=== PATIENT | female | born 1995 | race Caucasian/White ===

== ENCOUNTER 2023-08-22 20:04 | Outpatient (REF) | payer OTHER, SELFPAY ==
[2023-08-27 14:08] LABS: Age Gdln ACOG Testing Note (.); IGP, rfx Aptima HPV ASCU Note (.)
== END 2023-08-22 20:05 | disposition home or self-care (01) ==
LOC: LAB 20:04
PROVIDERS: Visit Provider Obstetrics & Gynecology
DX: Z01.419 Encounter for gynecological examination (general) (routine) without abnormal findings (principal)
CPT/HCPCS: G0145

== ENCOUNTER 2023-08-30 12:39 | Outpatient (OUT) | payer OTHER, SELFPAY ==
--- NOTE | 2023-08-30 12:47 | MM_ITS ---
Patient Name: ZAKIA SEARS MR#: [id number] : 1995 Exam Date: 08/30/2023 Ordering Doctor: DR Steven Meade . RADIOLOGY REPORT PROCEDURE: MM TOMOSYNTHESIS DIAGNOSTIC BI, 08/30/2023, 13:26 US BREAST LT LIMITED, 08/30/2023, 12:52 COMPARISON: None. INDICATIONS: Mass Of Breast N63.0 Calculator Name NCI Breast Cancer Risk Assessment Tool 5 Year Breast Cancer Risk Not Reported. Lifetime Breast Cancer Risk Not Reported. Personal Breast Cancer No Personal Ovarian Cancer No Treatments None Family Cancers None LOCATION: [facility] BREAST COMPOSITION: Heterogeneously dense,which may obscure small masses. FINDINGS: DIAGNOSTIC CATEGORY 1--NEGATIVE. RIGHT BREAST: No significant suspicious finding. LEFT BREAST: No significant or suspicious finding via mammography and breast ultrasound. RECOMMENDATIONS: CLINICAL EVALUATION. PLEASE NOTE: A NORMAL MAMMOGRAM DOES NOT EXCLUDE THE POSSIBILITY OF BREAST CANCER. A CLINICALLY SUSPICIOUS PALPABLE LUMP SHOULD BE BIOPSIED. Dictated by: Rafiq Brennan M.D. on 08/30/2023 at 13:57 Approved by: Rafiq Brennan M.D. on 08/30/2023 at 14:01
--- OUTSIDE RECORDS SUMMARY | 2023-08-30 13:00 | XMS_ITS | CCD ---
Author Name Unknown Address [facility] [address] [place] [id number] Organization [facility] Care Team Providers Care Fixing Carpenter Name Role Phone Shantelle Dean Primary Care Provider [phone] JIMMY MEEHAN Referring Unavailable SHANTELLE DEAN Primary Care Unavailable SHANTELLE DEAN Referring Unavailable SHANTELLE DEAN Primary Care Unavailable MISHaroon, DR BELLAMY Primary Care Unavailable DR JASIEL RAMOS Attending Unavailable DR JASIEL RAMOS Consulting Unavailable DR JASIEL RAMOS Admitting Unavailable JASIEL RAMOS Attending Unavailable JASIEL RAMOS Attending Unavailable Medications Current Medications Medication Drug Class(es) Dates Sig (Normalized) Sig (Original) etonogestrel 68 mg drug implant (2 sources) Progestin etonogestrel (NEXPLANON) 68 MG implant 68 mg by Subdermal route once 0 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] Onset: 04-28-2019 04-28-2019 Chronic Immunizations and screening for infectious disease (1 source) Encounter for screening for human papillomavirus (HPV); Translations: [ENC SCREENING HUMAN PAPILLOMAVIRUS] Onset: 08-23-2022 Episodic Other screening for suspected conditions (not mental disorders or infectious disease) (4 sources) Encounter for screening for malignant neoplasm of cervix; Translations: [ENC SCREENING MALIG NEOPLASM CERV] Onset: 08-21-2022 Episodic Past or Other Problems Problem Classification Problem Date Documented Date Episodic/Chronic Contraceptive and procreative management (1 source) Patient encounter status; Translations: [Encounter for other contraceptive management] Onset: 07-11-2017 Resolved: 11-25-2019 11-25-2019 Episodic Other female genital disorders (2 sources) Pain in female genitalia on intercourse; Translations: [Unspecified dyspareunia] Onset: 05-24-2018 Resolved: 03-09-2020 03-09-2020 Chronic Unclassified (1 source) Patient encounter status; Translations: [Encounter for other contraceptive management] Onset: 07-11-2017 Resolved: 11-25-2019 11-25-2019 Results Test Name Value Interpretation Reference Range Facil ity PAP ACOG PANEL 2: 21 to 29on 08-25-2022 . . Normal [facility] Comment on above: Performed By: #### 4 [id number] #### [facility] [address] [address] [address] Matias Shukla Age Gdln ACOG Testing - [facility] Comment on above: Performed By: #### 4 [id number] #### [facility] [address] [address] [address] Matias Shukla DIAGNOSIS: Comment [facility] Comment on above: Result Comment: NEGA TIVE FOR INTRAEPITHELIAL LESION OR MALIGNANCY. Performed By: #### 4 [id number] #### [facility] [address] [address] [address] Matias Shukla Methodology: Comment [facility] Comment on above: Result Comment: This liquid based ThinPrep(R) pap test was screened with the use of an image guided system. Performed By: #### 4 [id number] #### [facility] [address] [address] [address] Matias Shukla Note: Comment [facility] Comment on above: Result Comment: The Pap smear is a screening test designed to aid in the detection of premalignant and malignant conditions of the uterine cervix. It is not a diagnostic procedure and should not be used as the sole means of detecting cervical cancer. Both false-positive and false-negative reports do occur. . Performed By: #### 4 [id number] #### [facility] [address] [address] [address] Matias Shukla Performed by: Comment [facility] Comment on above: Result Comment: Monika Prieto, Nuclear Equipment Sales Engineer (ASCP) Performed By: #### 4 [id number] #### [facility] [address] [address] [address] Matias Shukla Reflex Criteria: Comment Normal [facility] Comment on above: Result Comment: The HPV DNA reflex criteria were not met with this specimen result therefore, no HPV testing was performed. . Performed By: #### 4 [id number] #### [facility] [address] [address] [address] Matias Shukla Specimen adequacy: Comment Normal [facility] Comment on above: Result Comment: Sati sfactory for evaluation. Endocervical and/or squamous metaplastic cells (endocervical component) are present. Performed By: #### 4 [id number] #### [facility] [address] [address] [address] Matias Shukla MUMPS IGG BLDon 02-07-2022 MUMPS IGG 1.14 Normal [facility] Comment on above: Result Comment: RAN IN TRIPLICATE NORMAL RANGES: < OR = 0.9O NEGATIVE ; NO DETECTABLE IgG ANTIBODY TO MUMPS 0.91 - 1.09 EQUIVOCAL; REPEAT TESTING SUGGESTED > OR = 1.10 POSITIVE ; INDICATES PRESENCE OF DETECTABLE IgG ANTIBODY TO MUMPS Performed By: #### 1 0055, [id number], [id number], [id number] #### [facility] [address] [place] [address], [facility] RUBELLAon 02-07-2022 RUBELLA 1.73 Normal [facility] Comment on above: Result Comment: NORM AL RANGES: < OR = 0.9O NEGATIVE ; NO DETECTABLE IgG ANTIBODY TO RUBELLA 0.91 - 1.09 EQUIVOCAL; REPEAT TESTING SUGGESTED > OR = 1.10 POSITIVE ; INDICATES PRESENCE OF DETECTABLE IgG ANTIBODY TO RUBELLA VIRUS Performed By: #### 1 0055, [id number], 07330, [id number] #### [facility] [address] [place] [address], [facility] RUBEOLA MEASLES IGGon 2021 RUBEO IGG 4.62 Normal [facility] Comment on above: Result Comment: NORM AL RANGES: < OR = 0.9O NEGATIVE ; NO DETECTABLE IgG ANTIBODY TO RUBEOLA 0.91 - 1.09 EQUIVOCAL; REPEAT TESTING SUGGESTED > OR = 1.10 POSITIVE ; INDICATES PRESENCE OF DETECTABLE IgG ANTIBODY TO RUBEOLA Performed By: #### 1 0055, 86104, 65631, 55113 #### [facility] [address] [place] [address], [facility] TB QUANTIFERON PLUSon 2021 MITOGEN MINUS NIL 8.15 IU/mL Normal [facility] Comment on above: Performed By: #### 3 1592 #### [facility] [address] [place] [address], [facility] NIL 0.03 IU/mL Normal [facility] Comment on above: Performed By: #### 3 1592 #### [facility] [address] [place] [address], [facility] TB QUANTIFERON Negative Normal NEGATIVE [facility] Comment on above: Result Comment: Eric tiferon TB Gold Interpretation (IU/mL): NEGATIVE: M. tuberculosis infection not likely. Nil: <=8.0 TB1 Antigen minus Nil (YT9JB-YOL): <0.35 OR >=0.35; and <25% of Nil value. TB2 Antigen minus Nil (HL7MH-RLC): <0.35 OR >=0.35; and <25% of Nil value. Mitogen minus Nil (BINU-NIL): >=0.50 NOTE: Diagnosing or excluding tuberculosis disease, and assessing the probability of LTBI, requires a combination of epidemiological, historical, medical, and diagnostic findings that should be taken into account when interpreting QuantiFERON (TM)-TB Gold results. See general guidance on the diagnosis and treatment of TB disease and LTBI (https://www.cdc.gov/tb/publications/guidlines/default.htm Performed By: #### 3 1592 #### [facility] [address] [place] [address], [facility] TB1 AG 0.03 IU/mL Normal [facility] Comment on above: Performed By: #### 3 1592 #### [facility] [address] [place] [address], [facility] TB1 AG MINUS NIL 0.00 IU/mL Normal [facility] Comment on above: Performed By: #### 3 1592 #### [facility] [address] TB2 AG 0.04 IU/mL Normal [facility] Comment on above: Performed By: #### 3 1592 #### [facility] [address] TB2 AG MINUS NIL 0.01 IU/mL Normal [facility] Comment on above: Performed By: #### 3 1592 #### [facility] [address] VARICELLA ZOSTER IGGon 02-07 VARICELLA IGG 2.60 Normal [facility] Comment on above: Result Comment: NORM AL RANGES: < OR = 0.9O NEGATIVE ; NO DETECTABLE IgG ANTIBODY TO VARICELLA-ZOSTER VIRUS 0.91 - 1.09 EQUIVOCAL; REPEAT TESTING SUGGESTED > OR = 1.10 POSITIVE ; INDICATES PRESENCE OF DETECTABLE IgG ANTIBODY TO VARICELLA-ZOSTER VIRUS Performed By: #### 1 0055, 15697, 56425, 30349 #### [facility] [address] HPV DNA High Riskon 08-19-19 22 HPV Interp Normal [facility] Comment on above: Result Comment: This test amplifies and detects DNA of 14 high-risk HPV types associated with cervical cancer and its precursor lesions (HPV types 16,18, 31, 33, 35, 39, 45, 51, 52, 56, 58, 59, 66, and 68). Sensitivity may be affected by specimen collection methods, stage of infection, and the presence of interfering substances. Results should be interpreted in conjunction with other available laboratory and clinical data. A negative high-risk HPV result does not exclude the possibility of future cytologic HSIL or underlying CIN2-3 or cancer. This test is intended for medical purposes only and is not valid for the evaluation of suspected sexual abuse or for other forensic purposes. Performed By: #### [facility] #### [address] [address] Pharmacy Student: Rickey Watson MD HPV Type 16 Not detected Normal [facility] Comment on above: Performed By: #### H [facility] #### [address] [address] Pharmacy Student: Rickey Watson MD HPV Type 18 Not detected Normal [facility] Comment on above: Performed By: #### H [facility] #### [address] [address] Pharmacy Student: Rickey Watson MD Other High Risk HPV Not detected [facility] Comment on above: Performed By: #### H [facility] #### [address] [address] Pharmacy Student: Rickey Watson MD HPV DNA High Riskon 08-18-19 Source .GENITAL - NOT SPECIFIED Normal [facility] Comment on above: Performed By: #### H [facility] #### [address] [address] Pharmacy Student: Rickey Watson MD HPV Sample .THIN PREP Normal [facility] Comment on above: Performed By: #### H [facility] #### [address] [address] Pharmacy Student: Rickey Watson MD Chlamydia/GC DNA, TPon 08-10 Chlamydia Probe, TP Negative Normal NEG [facility] Comment on above: Result Comment: CHLA MYDIA TRACHOMATIS DNA not detected by nucleic acid amplification. This test is intended for medical purposes only and is not valid for the evaluation of suspected sexual abuse or for other forensic purposes. In certain contexts, culture may be required to meet applicable laws and regulations for diagnosis of C. trachomatis and N. gonorrhoeae infections. Per 2014 CDC recommendations, this test does not include confirmation of positive results by an alternative nucleic acid target. Performed By: #### C YTC #### [address] [address] Pharmacy Student: Rickey Watson MD Gonorrhea Probe, TP Negative Normal NEG [facility] Comment on above: Result Comment: NEIS SERIA GONORRHOEAE DNA not detected by nucleic acid amplification. This test is intended for medical purposes only and is not valid for the evaluation of suspected sexual abuse or for other forensic purposes. In certain contexts, culture may be required to meet applicable laws and regulations for diagnosis of C. trachomatis and N. gonorrhoeae infections. Per 2014 CDC recommendations, this test does not include confirmation of positive results by an alternative nucleic acid target. Performed By: #### C YTCGP #### [address] [address] Pharmacy Student: Rickey Watson MD Cytologyon 08-08-2021 Cytology (NOTE) INTERPRETATION Cervical material, (ThinPrep vial, Imaging-assisted review): Specimen Adequacy: Satisfactory for evaluation. - Endocervical/transform ation zone component present. - Scant cellularity. Descriptive Diagnosis: Atypical squamous cells of undetermined significance (ASC-US). Nuclear Equipment Sales Engineer: AMANDA Michaels M.D. Electronically Signed Out rdd/08/18/2021 Amendments Originally Reported As: Procedure/Addendum Source: Clinical History LMP: Patient Name: [facility] Rec: Path Number: Fax: Normal [facility] Comment on above: Performed By: #### P PPVP #### [address] [address] Pharmacy Student: Rickey Watson MD QuantiFERON TBon 12-24-2020 Quanti Binu minus NIL 8.10 IU/mL [facility] Comment on above: Performed By: #### R UBI, LUIZ, MARITZA, VZI #### [address] [address] Pharmacy Student: Rickey Watson MD #### AQF #### Pending sale to [facility] [address] [place] [address] Pharmacy Student: Mark Grossman MD Quanti TB Gold Plus Negative Normal Negative [facility] Comment on above: Result Comment: (NOT E) Interpretive Data: Quantiferon TB Gold Plus Interferon gamma release is measured for specimens from each of the four collection tubes. A qualitative result (Negative, Positive, or Indeterminate) is based on interpretation of the four values, NIL, MITOGEN minus NIL (MITOGEN-NIL), TB1 minus NIL (TB1-NIL), and TB2 minus NIL (TB2-NIL). The NIL value represents nonspecific reactivity produced by the patient specimen. The MITOGEN-NIL value serves as the positive control for the patient specimen, demonstrating successful lymphocyte activity. The TB1-NIL tube specifically detects CD4+ lymphocyte reactivity, specifically stimulated by the TB1 antigens. The TB2-NIL tube detects both CD4+ and CD8+ lymphocyte reactivity, stimulated by TB2 antigens. An overall Negative result does not completely rule out TB infection. A false-positive result in the absence of other clinical evidence of TB infection is not uncommon. Refer to: Updated Guidelines for Using Interferon Gamma Release Assays to Detect Mycobacterium tuberculosis Infection --- [place], 2010 (http://www.cdc.gov/mmwr/preview/mmwrhtml/el2508v7.htm), for more information concerning test performance in low-prevalence populations and use in occupational screening. Performed By: #### R LUIZ MCKEON MUI, VZI #### [facility] [address] [place], [place] [id number] Pharmacy Student: Rickey Watson MD #### AQF #### [facility] [address] [place], [place] [id number] Pharmacy Student: Mark Grossman MD Quanti TB1 minus NIL 0.00 IU/mL Normal 0.00-0.34 [facility] Comment on above: Performed By: #### R LUIZ MCKEON MUI, VZI #### [facility] [address] [place], [place] [id number] Pharmacy Student: Rickey Watson MD #### AQF #### [facility] [address] [place], [place] [id number] Pharmacy Student: Mark Grossman MD Quanti TB2 minus NIL 0.01 IU/mL Normal 0.00-0.34 [facility] Comment on above: Performed By: #### R UBI, LUIZ, MARITZA, VZI #### [address] [address] Pharmacy Student: Rickey Watson MD #### AQF #### [address] [address] Pharmacy Student: Mark Grossman MD QuantiFERON NIL 0.01 IU/mL Normal [facility] Comment on above: Result Comment: (NOT E) Performed By: [address] [id number] Hard Candy Spinner: Carolyn Wei MD Performed By: #### R UBI, LUIZ, MARITZA, VZI #### [address] [id number] Pharmacy Student: Rickey Watson MD #### AQF #### [address] [id number] Pharmacy Student: Mark Grossman MD Measles (Rubeola) Imon 12-229 Measles (Rubeola) Im 3.68 Normal >1.09 [facility] Comment on above: Result Comment: Interpretation: IMMUNE Reference Range: <0.91 Not Immune 0.91-1.09 Equivocal >1.09 Immune Performed By: #### R UBI, LUIZ, MARITZA, VZI #### [address] [address] Pharmacy Student: Rickey Watson MD #### AQF #### [address] [address] Pharmacy Student: Mark Grossman MD Mumps,Immun,Abon 12-22-2020 Mumps,Immun,Ab 1.16 Normal >1.09 [facility] Comment on above: Result Comment: Interpretation: IMMUNE Reference Range: <0.91 Not Immune 0.91-1.09 Equivocal >1.09 Immune Performed By: #### R UBI, LUIZ, MARITZA, VZI #### [address] [address] Pharmacy Student: Rickey Watson MD #### AQF #### [address] [address] Pharmacy Student: Mark Grossman MD VZ Immunityon 12-22-2020 VZ Immunity 2.24 Normal >1.09 [facility] Comment on above: Result Comment: Interpretation: IMMUNE Reference Range: <0.91 Not Immune 0.91-1.09 Equivocal >1.09 Immune Performed By: #### R UBI, LUIZ, MARITZA, VZI #### [address] [address] Pharmacy Student: Rickey Watson MD #### AQF #### [address] [address] Pharmacy Student: Mark Grossman MD Rubella Ab, IgGon 12-21-2020 Rubella Ab, IgG 16.2 IU/mL Normal [facility] Comment on above: Result Comment: REFERENCE RANGE: <5.0 NON-REACTIVE (non-immune) 5.0 TO 9.9 EQUIVOCAL >=10.0 REACTIVE (immune) Performed By: #### R UBI, LUIZ, MARITZA, VZI #### [address] [address] Pharmacy Student: Rickey Watson MD #### AQF #### [address] [address] Pharmacy Student: Mark Grossman MD Rubella antibody, IgGOrdered By: Jimmy Meehan on 12-21-2020 Rubella virus IgG Ql (S) 16.2 IU/mL [facility] Work Phone: Comment on above: REFERENCE RANGE: <5.0 NON-REACTIVE (non-immune) 5.0 TO 9.9 EQUIVOCAL >=10.0 REACTIVE (immune) [facility] Work Phone: Lab - Toxicology Resultson 0 03-11-2020 Lab - Toxicology Results [id number]#[id number] [id number] Normal [facility] QuantiFERON TB Gold (In Tube ) LCon 03-08-2020 QuantiFERON Criteria LC Comment [facility] Comment on above: Result Comment: The QuantiFERON-TB Gold Plus result is determined by subtracting the Nil value from either TB antigen (Ag) tube. The mitogen tube serves as a control for the test. Performed By: #### 4 [id number], [id number] #### [facility] (DEFAULT) [address] [place] [address] QuantiFERON M. tuberculosis1 Ag Value LC 0.09 IU/mL [facility] Comment on above: Performed By: #### 4 [id number], [id number] #### [facility] (DEFAULT) [address] [place] [address] QuantiFERON M. tuberculosis2 Ag Value LC 0.08 IU/mL [facility] Comment on above: Performed By: #### 4 [id number], [id number] #### [facility] (DEFAULT) [address] [place] [address] QuantiFERON Mitogen Value LC >10.00 [facility] Comment on above: Result Comment: Perf ormed At: [facility] [id number] Kat Arevalo PhD Ph:[phone] Performed By: #### 4 [id number], [id number] #### [facility] (DEFAULT) [address] [place] [address] QuantiFERON Nil Value LC 0.01 IU/mL [facility] Comment on above: Performed By: #### 4 [id number], [id number] #### [facility] (DEFAULT) [address] [place] [address] QuantiFERON-TB Gold Plus LCo n 03-08-2020 QuantiFERON-TB Gold Plus LC Negative Negative [facility] Comment on above: Result Comment: Perf ormed At: [address] [id number] Kat Arevalo PhD Ph:[phone] Performed By: #### 4 [id number], [id number] #### [facility] (DEFAULT) [address] [place] [address] QuantiFERON Incubation LC Incubation performed. [facility] Comment on above: Result Comment: Perf ormed At: [address] [id number] Kat Arevalo PhD Ph:[phone] Performed By: #### 4 [id number], [id number] #### [facility] (DEFAULT) [address] [place] [address] HBSab Qnt LCon 03-05-2020 Hep B Surf Ab Quant LC 145.6 mIU/mL Immunity>9.9 [facility] Comment on above: Result Comment: Stat us of Immunity Anti-HBs Level Inconsistent with Immunity 0.0 - 9.9 Consistent with Immunity >9.9 Performed At: [address] [id number] Kat Arevalo PhD Ph:[phone] Performed By: #### 1 [id number], [id number] #### [facility] (DEFAULT) [address] [place] [address] Measles/Mumps/Rubella Immuni ty LCon 03-05-2020 Mumps Abs, IgG LC 69.5 AU/mL Immune >10.9 [facility] Comment on above: Result Comment: Nega tive <9.0 Equivocal 9.0 - 10.9 Positive >10.9 A positive result generally indicates past exposure to Mumps virus or previous vaccination. Performed At: [address] [id number] Kat Arevalo PhD Ph:[phone] Performed By: #### 1 [id number], [id number] #### [facility] (DEFAULT) [address] [place] [address] Rubella Antibodies, IgG LC 1.75 index Immune >0.99 [facility] Comment on above: Result Comment: Non- immune <0.90 Equivocal 0.90 - 0.99 Immune >0.99 Performed By: #### 1 [id number], [id number] #### [facility] (DEFAULT) [address] [place] [address] Rubeola Ab, IgG, EIA LC >300.0 Immune >16.4 [facility] Comment on above: Result Comment: Nega tive <13.5 Equivocal 13.5 - 16.4 Positive >16.4 Presence of antibodies to Rubeola is presumptive evidence of immunity except when acute infection is suspected. Performed By: #### 1 [id number], [id number] #### [facility] (DEFAULT) [address] [place] [address] Nicotine Metabolite, Urine L Con 03-05-2020 Cotinine LC Negative Niqpvg=818 [facility] Comment on above: Result Comment: Perf ormed At: [facility] [address] [facility], [place] [id number] Jose Schwartz PhD Ph:[phone] Performed By: #### 1 [id number] #### [facility] (DEFAULT) [address] [place] [address] Encounters Encounter Date Encounter Type Care Provider Facility Start: 08-22-2023 End: 08-22-2023 ambulatory JASIEL RICHARD Not Available Start: 07-04-2023 End: 07-04-2023 ambulatory JASIEL RICHARD Not Available Start: 08-21-2022 End: 08-21-[address] DOCTOR MERCADO Facility: Start: 08-08-2021 End: 08-09-2021 ambulatory SHANTELLE DEAN [facility] Start: 12-21-2020 End: 12-22-2020 ambulatory JIMMY MEEHAN [facility] Start: 12-21-2020 End: 12-21-2020 Subsequent hospital visit by physician Shantelle Dean PA-C Work Phone: [facility] Start: 03-18-2020 End: 03-18-2020 Subsequent hospital visit by physician Shantelle [place] [facility] Procedures Date Procedure Procedure Detail Performing Clinician Start: 12-21-2020 Antibody rubella Ebony Meehan MD Work Phone: Plan of Treatment Date Care Activity Detail Author Start: 02-26-2027 DTaP/Tdap/Td vaccine (7 - Td) DTaP/Tdap/Td vaccine (7 - Td) [place], [place] Start: 03-18-2023 Screening for malign ant neoplasm of cervix Cervical cancer screen [employer] Phone: Start: 06-12-2021 Screening for malign ant neoplasm of cervix Cervical cancer screen [place], [place] Start: 03-30-2021 Influenza vaccination Flu vacc ine (Season Ended) [facility] Phone: Start: 03-30-2020 Influenza vaccination Flu vaccine (# 1) [place], [place] Start: 06-12-2019 Screening for Chlamy flaco trachomatis Chlamydia screen [place], [place] Start: 09-13-2011 Hepatitis A vaccine (2 of 2 - 2-dose series) Hepatitis A vaccine (2 of 2 - 2-dose series) [place], [place] Start: 2007 COVID-19 Vaccine (1) COVID-19 Vaccin e (1) [facility] Phone: Start: 1995 Hepatitis C screening Hepatitis C sc reen [employer] Phone: End: 12-21-2020 Mumps Antibody, IgG Mumps Antibody, IgG Lab Routine Once for 1 Occurrences starting 12/21/2020 until 12/21/2020 [employer] Phone: Comment on above: Once for 1 Occurrenc es starting 12/21/2020 until 12/21/2020 Mumps Antibody, IgG Mumps Antibo dy, IgG Lab Routine 12/21/2020 4:27 PM EDT [employer] Phone: End: 12-21-2020 Quantiferon TB Gold Quantiferon TB Gold Microbiology Routine Once for 1 Occurrences starting 12/21/2020 until 12/21/2020 [employer] Phone: Comment on above: Once for 1 Occurrenc es starting 12/21/2020 until 12/21/2020 Quantiferon TB Gold Quantiferon TB Gold Microbiology Routine 12/21/2020 4:27 PM EDT [employer] Phone: End: 12-21-2020 Rubeola Antibody, IgG Rubeola Antibody, IgG Lab Routine Once for 1 Occurrences starting 12/21/2020 until 12/21/2020 [employer] Phone: Comment on above: Once for 1 Occurrenc es starting 12/21/2020 until 12/21/2020 Rubeola Antibody, IgG Rubeola An tibody, IgG Lab Routine 12/21/2020 4:27 PM EDT [employer] Phone: End: 12-21-2020 Varicella Zoster Antibody, IgG Varicella Zoster Antibody, IgG Lab Routine Once for 1 Occurrences starting 12/21/2020 until 12/21/2020 [employer] Phone: Comment on above: Once for 1 Occurrenc es starting 12/21/2020 until 12/21/2020 Varicella Zoster Antibody, IgG Varicella Zoster Antibody, IgG Lab Routine 12/21/2020 4:27 PM EDT [employer] Phone: Immunizations Immunization Date Immunization Notes Care Provider Fa [facility] 03-09-2020 tuberculin skin test ; purified protein derivative solution, intradermal [facility], [place] 04-28-2019 influenza, injectabl e, quadrivalent, preservative free [facility], [place] 06-12-2018 influenza, injectabl e, quadrivalent, preservative free [facility], [place] 05-01-2018 tuberculin skin test ; purified protein derivative solution, intradermal [facility], [place] 09-12-2017 hepatitis B vaccine, adult dosage [facility], [place] 04-13-2017 Human Papillomavirus 9-valent vaccine [facility], [place] 04-10-2017 hepatitis B vaccine, adult dosage [facility], [place] 03-07-2017 hepatitis B vaccine, adult dosage [facility] 03-07-2017 meningococcal polysaccharide (groups A, C, Y and W-135) diphtheria toxoid conjugate vaccine (MCV4P) [place], [place] 03-07-2017 tuberculin skin test ; purified protein derivative solution, intradermal [facility], [place] 02-26-2017 tetanus toxoid, redu juve diphtheria toxoid, and acellular pertussis vaccine, adsorbed [facility], [place] 02-26-2017 tuberculin skin test ; purified protein derivative solution, intradermal [facility], [place] 08-13-2014 Human Papillomavirus 9-valent vaccine [place], [place] 04-01-2014 meningococcal polysaccharide (groups A, C, Y and W-135) diphtheria toxoid conjugate vaccine (MCV4P) [facility], [place] 02-10-2014 Human Papillomavirus 9-valent vaccine [place], [place] Payers Date Payer Category Payer Unknown [id number] 2021 Unknown [id number] 2016 Private Health Insurance SHIV FIERRO [id number] 2016-Present [phone] [address] [place] [address] [id number] 1995 Unknown [id number] 1995 Unknown [id number] 1995 Unknown [id number] 1995 Unknown [id number] 1959 Unknown [id number] Social History Date Type Detail Facility Start: 03-18-2020 Tobacco smoking status NHIS Never sm oker [place], [place] Start: 03-18-2020 Tobacco use and exposure Never used [place] Start: 02-05-2017 Alcohol Comment rarely [place], [place] Sex Assigned At Not on file [place], [place] Start: 1995 Sex Assigned At Female [employer]abel [employer] Phone: Summary Purpose Family History No Family History Records FoundNo Family History Records FoundNo Family History Records FoundNo Family History Records FoundNo Family History Records Found Advance Directives No Advanced Directives Records FoundDocuments on File Type Date Recorded Patient Asset Manager Expl anation ACP-Advance Directive ACP-Power of Gynecologist Additional Source Comments INFORMATION SOURCE (unrecogn ized section and content) DATE CREATED AUTHOR 03/12/2020 [facility] DATE CREATED AUTHOR AUTHOR'S ORGANIZ ATION 08/20/2021 [facility] DATE CREATED AUTHOR AUTHOR'S ORGANIZ ATION 02/18/2022 [facility] DATE CREATED AUTHOR AUTHOR'S ORGANIZ ATION 08/25/2022 [facility] DATE CREATED AUTHOR AUTHOR'S ORGANIZ ATION 08/23/2023 [facility] FOR RECORDS PERTAINING TO PATIENTS WHO ARE OR HAVE BEEN ENROLLED IN A CHEMICAL DEPENDENCY/SUBSTANCEABUSE PROGRAM, SOME INFORMATION MAY BE OMITTED. This clinical summary was aggregated from multiple sources. Caution should be exercised in using it in the provision of clinical care. This summary normalizes information from multiple sources, and as a consequence, information in this document may materially change the coding, format and clinical context of patient data. In addition, data may be omitted in some cases. CLINICAL DECISIONS SHOULD BE BASED ON THE PRIMARY CLINICAL RECORDS. [employer] provides no warranty or guarantee of the accuracy or completeness of information in this document.
== END 2023-08-30 12:40 | disposition home or self-care (01) ==
PROVIDERS: Visit Provider Obstetrics & Gynecology
DX: N63.0 Unspecified lump in unspecified breast (principal)
CPT/HCPCS: 76642; 77066; G0279

== ENCOUNTER 2023-12-10 13:33 | Outpatient (OUT) | payer OTHER, SELFPAY ==
--- NOTE | 2023-12-10 13:46 | US_ITS ---
[address] [address] Patient Name: ZAKIA SEARS MRN: [id number] date: 1995 Sex: F Assigned Patient Location: US Current Patient Location: US Accession/Order Number: [id number] Exam Date: 12/10/2023 13:50 Report Date: 12/10/2023 14:28 At the request of: JASIEL RAMOS Procedure: US OB transvaginal EXAMINATION: US OB transvaginal HISTORY: Missed menses N92.6 COMPARISON: No relevant comparison available. FINDINGS: Transabdominal and transvaginal images Moon intrauterine gestation Gestational sac: 1.34 cm, 5 weeks 4 days CRL: 2.2 mm, 5 weeks 5 days Yolk sac: 1.9 mm Heart rate: Not observed Cervix: Closed, 4.1 cm The uterus is normal, anteverted The ovaries are normal Clinical age: 7 weeks 1 day Clinical VICTORINA: 07/27/2024 Ultrasound age: 5 weeks 5 days Ultrasound VICTORINA: 08/06/2024 US/US OB transvaginal IMPRESSION: Early intrauterine gestation measuring 5 weeks 5 days Electronically authenticated by: KAJAL MARINELLI Date: 12/10/2023 14:28
[2023-12-10 15:35] LABS: HCG Quantitative 14026 mIU/mL
== END 2023-12-10 13:34 | disposition home or self-care (01) ==
LOC: US 13:34
PROVIDERS: Visit Provider Obstetrics & Gynecology
DX: N92.6 Irregular menstruation, unspecified (principal); Z3A.00 Weeks of gestation of pregnancy not specified
CPT/HCPCS: 36415; 76817; 84702

== ENCOUNTER 2023-12-12 08:46 | Outpatient (OUT) | payer OTHER, SELFPAY ==
--- OUTSIDE RECORDS SUMMARY | 2023-12-12 08:59 | XMS_ITS | CCD ---
Author Organization [facility] Care Team Providers Care Design Engineer Products Name Role Phone Shantelle Dean Primary Care Provider JIMMY MEEHAN Referring Unavailable SHANTELLE DEAN Primary Care Unavailable SHANTELLE DEAN Referring Unavailable SHANTELLE DEAN Primary Care Unavailable ROGELIO, DOCTOR Primary Care Unavailable DR JASIEL RAMOS Attending Unavailable DR JASIEL RMAOS Consulting Unavailable DR JASIEL RAMOS Admitting Unavailable [...] 21 to 29on 08-25-2022 . . Normal [facility] Comment on above: Performed By: #### 4 [id number] #### [facility] [address] [address] [address] Matias Shukla Age Gdln ACOG Testing - Normal [facility] Comment on above: Performed By: #### 4 [id number] #### [facility] [address] [address] [address] Matias Shukla DIAGNOSIS: Comment [facility] Comment on above: Result Comment: NEGA TIVE FOR INTRAEPITHELIAL LESION OR MALIGNANCY. Performed By: #### 4 [id number] #### [facility] [address] [address] [address] Matias Shukla Methodology: Comment [facility] Comment on above: Result Comment: This liquid based ThinPrep(R) pap test was screened with the use of an image guided system. Performed By: #### 4 [id number] #### [facility] [address] [address] [address] Matias Shukla Note: Comment [facility] Comment on above: Result Comment: The Pap smear is a screening test designed to aid in the detection of premalignant and malignant conditions of the uterine cervix. It is not a diagnostic procedure and should not be used as the sole means of detecting cervical cancer. Both false-positive and false-negative reports do occur. . Performed By: #### 4 [id number] #### [facility] [address] [address] [address] Matias Shukla Performed by: Comment [facility] Comment on above: Result Comment: Monika Prieto, Curriculum Developer (ASCP) Performed By: #### 4 [id number] #### [facility] [address] [address] [address] Matias Shukla Reflex Criteria: Comment [facility] Comment on above: Result Comment: The HPV DNA reflex criteria were not met with this specimen result therefore, no HPV testing was performed. . Performed By: #### 4 [id number] #### [facility] [address] [place] [address] Dr. Matias Shukla Specimen adequacy: Comment Normal [facility] Comment on above: Result Comment: Sati sfactory for evaluation. Endocervical and/or squamous metaplastic cells (endocervical component) are present. Performed By: #### 4 [id number] #### [facility] [address] [address] [address] Matias Shukla MUMPS IGG BLDon 02-07-2022 MUMPS IGG 1.[address] [facility] Comment on above: Result Comment: RAN IN TRIPLICATE NORMAL RANGES: < OR = 0.9O NEGATIVE ; NO DETECTABLE IgG ANTIBODY TO MUMPS 0.91 - 1.09 EQUIVOCAL; REPEAT TESTING SUGGESTED > OR = 1.10 POSITIVE ; INDICATES PRESENCE OF DETECTABLE IgG ANTIBODY TO MUMPS Performed By: #### 1 0055, [id number], 21822, 10414 #### [facility] [address] [place] [address], [facility] RUBELLAon 02-07-2022 RUBELLA 1.[address] Normal [address] [facility] Comment on above: Result Comment: NORM AL RANGES: < OR = 0.9O NEGATIVE ; NO DETECTABLE IgG ANTIBODY TO RUBELLA 0.91 - 1.09 EQUIVOCAL; REPEAT TESTING SUGGESTED > OR = 1.10 POSITIVE ; INDICATES PRESENCE OF DETECTABLE IgG ANTIBODY TO RUBELLA VIRUS Performed By: #### 1 0055, 91778, 03363, 25084 #### [facility] [address] [place] [address], [facility] RUBEOLA MEASLES IGGon 2021 RUBEO IGG 4.62 Normal [address] [facility] Comment on above: Result Comment: NORM AL RANGES: < OR = 0.9O NEGATIVE ; NO DETECTABLE IgG ANTIBODY TO RUBEOLA 0.91 - 1.09 EQUIVOCAL; REPEAT TESTING SUGGESTED > OR = 1.10 POSITIVE ; INDICATES PRESENCE OF DETECTABLE IgG ANTIBODY TO RUBEOLA Performed By: #### 1 0055, 66316, 28700, 34772 #### [facility] [address] [place] [address], [facility] TB QUANTIFERON PLUSon 2021 MITOGEN MINUS NIL 8.15 IU/mL Normal [facility] Comment on above: Performed By: #### 3 1592 #### [facility] [address] [place] [address], [place] NIL 0.03 IU/mL Normal [facility] Comment on above: Performed By: #### 3 1592 #### [facility] [address] [place] [address], [facility] TB QUANTIFERON Negative Normal NEGATIVE [facility] Comment on above: Result Comment: Eric tiferon TB Gold Interpretation (IU/mL): NEGATIVE: M. tuberculosis infection not likely. Nil: <=8.0 TB1 Antigen minus Nil ([id number]): <0.35 OR >=0.35; and <25% of Nil value. TB2 Antigen minus Nil ([id number]-VZY): <0.35 OR >=0.35; and <25% of Nil [...] (https://www.cdc.gov/tb/publications/guidlines/default.htm Performed By: #### 3 1592 #### [facility] [address] [place] [address], [place] TB1 AG 0.03 IU/mL Normal [facility] Comment on above: Performed By: #### 3 1592 #### [facility] [address] [place] [address], [place] TB1 AG MINUS NIL 0.00 IU/mL Normal [facility] Comment on above: Performed By: #### 3 1592 #### [facility] [address] [facility] [place] [address], [facility] TB2 AG 0.04 IU/mL Normal [facility] Comment on above: Performed By: #### 3 1592 #### [facility] [address] [facility] [place] [address], [facility] TB2 AG MINUS NIL 0.01 IU/mL Normal [facility] Comment on above: Performed By: #### 3 1592 #### [facility] [address] [place], [place] [id number] [place] [address] VARICELLA ZOSTER IGGon 02-07 VARICELLA IGG 2.60 Normal [facility] Comment on above: Result Comment: NORM AL RANGES: < OR = 0.9O NEGATIVE ; NO DETECTABLE IgG ANTIBODY TO VARICELLA-ZOSTER VIRUS 0.91 - 1.09 EQUIVOCAL; REPEAT TESTING SUGGESTED > OR = 1.10 POSITIVE ; INDICATES PRESENCE OF DETECTABLE IgG ANTIBODY TO VARICELLA-ZOSTER VIRUS Performed By: #### 1 0055, 27116, 73725, 05430 #### [facility] [address] [place], [place] [id number] [place] [address] HPV DNA High Riskon 08-19-19 22 HPV Interp Normal [facility] Comment on above: Result Comment: This test [...] other forensic purposes. Performed By: #### [facility] #### [facility] [address] [place] [address] Derrickman Helper: Rickey Watson MD HPV Type 16 Not detected Normal [facility] Comment on above: Performed By: #### H PVH #### [address] [address] Derrickman Helper: Rickey Watson MD HPV Type 18 Not detected Normal [facility] Comment on above: Performed By: #### H PVH #### [address] [address] Derrickman Helper: Rickey Watson MD Other High Risk HPV Not detected [facility] Comment on above: Performed By: #### H PVH #### [address] [address] Derrickman Helper: Rickey Watson MD HPV DNA High Riskon 08-18-19 Source .GENITAL - NOT SPECIFIED Normal [facility] Comment on above: Performed By: #### H PVH #### [address] [address] Derrickman Helper: Rickey Watson MD HPV Sample .THIN PREP Normal [facility] Comment on above: Performed By: #### H PVH #### [address] [address] Derrickman Helper: Rickey Watson MD Chlamydia/GC DNA, TPon 08-10 Chlamydia Probe, TP Negative Normal NEG [facility] Comment on above: Result Comment: CHLA MYDIA [...] target. Performed By: #### C YTCGP #### [address] [id number] Derrickman Helper: Rickey Watson MD Gonorrhea Probe, TP Negative Normal NEG [facility] Comment on above: Result Comment: NEIS SERIA [...] target. Performed By: #### C YTCGP #### [address] [address] Derrickman Helper: Rickey Watson MD Cytologyon 08-08-2021 Cytology (NOTE) INTERPRETATION Cervical material, (ThinPrep vial, Imaging-assisted review): Specimen Adequacy: Satisfactory for evaluation. - Endocervical/transform ation zone component present. - Scant cellularity. Descriptive Diagnosis: Atypical squamous cells of undetermined significance (ASC-US). Curriculum Developer: AMANDA Mihcaels M.D. Electronically Signed Out rdd/08/18/2021 Amendments Originally Reported As: Procedure/Addendum Source: Clinical History LMP: Patient Name: Med Rec: Path Number: Fax: Normal [facility] Comment on above: Performed By: #### P PPVP #### [address] [address] Derrickman Helper: Rickey Watson MD QuantiFERON TBon 12-24-2020 Quanti Binu minus NIL 8.10 IU/mL [facility] Comment on above: Performed By: #### R UBI, LUIZ, MARITZA, VZI #### [address] [address] Derrickman Helper: Rickey Watson MD #### AQF #### [facility] [address] [place] [address] Derrickman Helper: Mark Grossman MD Quanti TB Gold Plus Negative Normal Negative [facility] Comment on above: Result Comment: (NOT E) [...] Mycobacterium tuberculosis Infection --- [place], 2010 (http://www.cdc.gov/mmwr/preview/mmwrhtml/yn1736p3.htm), for more information concerning test performance in low-prevalence populations and use in occupational screening. Performed By: #### R LUIZ MCKEON MUI, MADHUI #### [facility] [address] [place], [place] [id number] Derrickman Helper: Rickey Watson MD #### AQF #### [facility] [address] [place] [address] Derrickman Helper: Mark Grossman MD Quanti TB1 minus NIL 0.00 IU/mL Normal 0.00-0.34 [facility] Comment on above: Performed By: #### R LUIZ MCKEON MUI, VZI #### [facility] [address] [place] [address] Derrickman Helper: Rickey Watson MD #### AQF #### [employer] [facility] [address] [place] [address] Derrickman Helper: Mark Grossman MD Quanti TB2 minus NIL 0.01 IU/mL Normal 0.00-0.34 [facility] Comment on above: Performed By: #### R UBI, LUIZ, MARITZA, VZI #### [address] [address] Derrickman Helper: Rickey Watson MD #### AQF #### [address] [address] Derrickman Helper: Mark Grossman MD QuantiFERON NIL 0.01 IU/mL Normal [facility] Comment on above: Result Comment: (NOT E) Performed By: [facility] [address] [place], [place] [id number] Concrete Grinder Operator: Carolyn Wei MD Performed By: #### R UBI, LUIZ, MARITZA, VZI #### [place] [address] Derrickman Helper: Rickey Watson MD #### AQF #### [address] [id number] Derrickman Helper: Mark Grossman MD Measles (Rubeola) Imon 12-22 Measles (Rubeola) Im 3.68 Normal >1.09 [facility] Comment on above: Result Comment: Interpretation: IMMUNE Reference Range: <0.91 Not Immune 0.91-1.09 Equivocal >1.09 Immune Performed By: #### R UBI, LUIZ, MARITZA, VZI #### [address] [place] [id number] Derrickman Helper: Rickey Watson MD #### AQF #### [address] [id number] Derrickman Helper: Mark Grossman MD Mumps,Immun,Abon 12-22-2020 Mumps,Immun,Ab 1.16 Normal >1.09 [facility] Comment on above: Result Comment: Interpretation: IMMUNE Reference Range: <0.91 Not Immune 0.91-1.09 Equivocal >1.09 Immune Performed By: #### R UBI, LUIZ, MARITZA, VZI #### [address] [address] Derrickman Helper: Rickey Watson MD #### AQF #### [facility] [address] [place], [place] [id number] Derrickman Helper: Mark Grossman MD VZ Immunityon 12-22-2020 VZ Immunity 2.24 Normal >1.09 [facility] Comment on above: Result Comment: Interpretation: IMMUNE Reference Range: <0.91 Not Immune 0.91-1.09 Equivocal >1.09 Immune Performed By: #### R UBI, LUIZ, MARITZA, VZI #### [address] [id number] Derrickman Helper: Rickey Watson MD #### AQF #### [facility] [address] [place], [place] [id number] Derrickman Helper: Mark Grossman MD Rubella Ab, IgGon 12-21-2020 Rubella Ab, IgG 16.2 IU/mL Normal [facility] Comment on above: Result Comment: REFERENCE RANGE: <5.0 NON-REACTIVE (non-immune) 5.0 TO 9.9 EQUIVOCAL >=10.0 REACTIVE (immune) Performed By: #### R UBI, LUIZ, MARITZA, VZI #### [place] [address] Derrickman Helper: Rickey Watson MD #### AQF #### [facility] [address] [place] [address] Derrickman Helper: Mark Grossman MD Rubella antibody, IgGOrdered By: Jimmy Meehan on 12-21-2020 Rubella virus IgG Ql (S) 16.2 IU/mL [facility] [employer] Phone: Comment on above: REFERENCE RANGE: <5.0 NON-REACTIVE (non-immune) 5.0 TO 9.9 EQUIVOCAL >=10.0 REACTIVE (immune) [employer] Work Phone: Lab - Toxicology Resultson 0 03-11-2020 Lab - Toxicology Results [id number] Normal [facility] QuantiFERON TB Gold (In Tube ) LCon 03-08-2020 QuantiFERON Criteria LC Comment [facility] Comment on above: Result Comment: The QuantiFERON-TB Gold Plus result is determined by subtracting the Nil value from either TB antigen (Ag) tube. The mitogen tube serves as a control for the test. Performed By: #### 4 [id number], [id number] #### [facility] (DEFAULT) [address] [place] [address] QuantiFERON M. tuberculosis1 Ag Value LC 0.09 IU/mL [facility] Comment on above: Performed By: #### 4 [id number], [id number] #### [facility] (DEFAULT) [address] [place] [address] QuantiFERON M. tuberculosis2 Ag Value LC 0.08 IU/mL [facility] Comment on above: Performed By: #### 4 [id number], [id number] #### [facility] (DEFAULT) [address] [place] [address] QuantiFERON Mitogen Value LC >10.00 [facility] Comment on above: Result Comment: Perf ormed At: [facility] [id number] Kat Arevalo PhD Ph:[phone] Performed By: #### 4 [id number], [id number] #### [facility] (DEFAULT) [address] [place] [address] QuantiFERON Nil Value LC 0.01 IU/mL [facility] Comment on above: Performed By: #### 4 [id number], [id number] #### [facility] (DEFAULT) [address] [place] [address] QuantiFERON-TB Gold Plus LCo n 03-08-2020 QuantiFERON-TB Gold Plus LC Negative Negative [facility] Comment on above: Result Comment: Perf ormed At: [address] [id number] Kat Arevalo PhD Ph:[phone] Performed By: #### 4 [id number], [id number] #### [facility] (DEFAULT) [address] [place] [address] QuantiFERON Incubation LC Incubation performed. [facility] Comment on above: Result Comment: Perf ormed At: [address] [id number] Kat Arevalo PhD Ph:[phone] Performed By: #### 4 [id number], [id number] #### [facility] (DEFAULT) [address] [place] [address] HBSab Qnt LCon 03-05-2020 Hep B Surf Ab Quant LC 145.6 mIU/mL Immunity>9.9 [facility] Comment on above: Result Comment: Stat us of Immunity Anti-HBs Level Inconsistent with Immunity 0.0 - 9.9 Consistent with Immunity >9.9 Performed At: [address] [id number] Kat Arevalo PhD Ph:[phone] Performed By: #### 1 [id number], [id number] #### [facility] (DEFAULT) [address] [place] [address] Measles/Mumps/Rubella Immuni ty LCon 03-05-2020 Mumps Abs, IgG LC 69.5 AU/mL Immune >10.9 [facility] Comment on above: Result Comment: Nega tive <9.0 Equivocal 9.0 - 10.9 Positive >10.9 A positive result generally indicates past exposure to Mumps virus or previous vaccination. Performed At: [address] [id number] Kat Arevalo PhD Ph:[phone] Performed By: #### 1 [id number], [id number] #### [facility] (DEFAULT) [address] [place] [address] Rubella Antibodies, IgG LC 1.75 index Immune >0.99 [facility] Comment on above: Result Comment: Non- immune <0.90 Equivocal 0.90 - 0.99 Immune >0.99 Performed By: #### 1 [id number], [id number] #### [facility] (DEFAULT) [address] [place] [address] Rubeola Ab, IgG, EIA LC >300.0 Immune >16.4 [facility] Comment on above: Result Comment: Nega tive <13.5 Equivocal 13.5 - 16.4 Positive >16.4 Presence of antibodies to Rubeola is presumptive evidence of immunity except when acute infection is suspected. Performed By: #### 1 [id number], [id number] #### [facility] (DEFAULT) [address] [place] [address] Nicotine Metabolite, Urine L Con 03-05-2020 Cotinine LC Negative [id number] [facility] Comment on above: Result Comment: Perf ormed At: [facility] [address] [facility] [place], [place] [id number] Jose Schwartz PhD Ph:[phone] Performed By: #### 1 [id number] #### [facility] (DEFAULT) [address] [place] [address] Encounters Encounter Date Encounter Type Care Provider Facility Start: 08-22-2023 End: 08-22-2023 ambulatory JASIEL RICHARD Not Available Start: 07-04-2023 End: 07-04-2023 ambulatory JASIEL RICHARD Not Available Start: 08-21-2022 End: 08-21-[address] DOCTOR MERCADO Facility: Start: 08-08-2021 End: 08-09-2021 ambulatory SHANTELLE DEAN [facility] Start: 12-21-2020 End: 12-22-2020 ambulatory JIMMY MEEHAN [facility] Start: 12-21-2020 End: 12-21-2020 Subsequent hospital visit by physician Shantelle Dean PA-C Work Phone: [facility] Start: 03-18-2020 End: 03-18-2020 Subsequent hospital visit by physician Shantelle [facility] Procedures Date Procedure Procedure Detail Performing Clinician Start: 12-21-2020 Antibody rubella Ebony Meehan MD Work Phone: Plan of Treatment Date Care Activity Detail Author Start: 02-26-2027 DTaP/Tdap/Td vaccine (7 - Td) DTaP/Tdap/Td vaccine (7 - Td) [place] Start: 03-18-2023 Screening for malign ant neoplasm of cervix Cervical cancer screen [facility] Phone: Start: 06-12-2021 Screening for malign ant neoplasm of cervix Cervical cancer screen [place], [place] Start: 03-30-2021 Influenza vaccination [facility] vacc ine ([facility] Start: 03-30-2020 Influenza vaccination Flu vaccine (# 1) [place] Start: 06-12-2019 Screening for Chlamy flaco trachomatis Chlamydia screen [place] Start: 09-13-2011 Hepatitis A vaccine (2 of 2 - 2-dose series) Hepatitis A vaccine (2 of 2 - 2-dose series) [place], [place] Start: 2007 COVID-19 Vaccine (1) COVID-19 Vaccin e (1) [facility] Phone: Start: 1995 Hepatitis C screening Hepatitis C sc reen [facility] Phone: End: 12-21-2020 Mumps Antibody, IgG Mumps Antibody, IgG Lab Routine Once for 1 Occurrences starting 12/21/2020 until 12/21/2020 [facility] Phone: Comment on above: Once for 1 Occurrenc es starting 12/21/2020 until 12/21/2020 Mumps Antibody, IgG Mumps Antibo dy, IgG Lab Routine 12/21/2020 4:27 PM EDT [facility] Phone: End: 12-21-2020 Quantiferon TB Gold Quantiferon TB Gold Microbiology Routine Once for 1 Occurrences starting 12/21/2020 until 12/21/2020 [facility] Phone: Comment on above: Once for 1 Occurrenc es starting 12/21/2020 until 12/21/2020 Quantiferon TB Gold Quantiferon TB Gold Microbiology Routine 12/21/2020 4:27 PM EDT [facility] Phone: End: 12-21-2020 Rubeola Antibody, IgG Rubeola Antibody, IgG Lab Routine Once for 1 Occurrences starting 12/21/2020 until 12/21/2020 [facility] Phone: Comment on above: Once for 1 Occurrenc es starting 12/21/2020 until 12/21/2020 Rubeola Antibody, IgG Rubeola An tibody, IgG Lab Routine 12/21/2020 4:27 PM EDT [facility] Phone: End: 12-21-2020 Varicella Zoster Antibody, IgG Varicella Zoster Antibody, IgG Lab Routine Once for 1 Occurrences starting 12/21/2020 until 12/21/2020 [facility] Phone: Comment on above: Once for 1 Occurrenc es starting 12/21/2020 until 12/21/2020 Varicella Zoster Antibody, IgG Varicella Zoster Antibody, IgG Lab Routine 12/21/2020 4:27 PM EDT [facility] Phone: Immunizations Immunization Date Immunization Notes Care Provider Durga hutchins 03-09-2020 tuberculin skin test ; purified protein derivative solution, intradermal [facility] [place] 04-28-2019 influenza, injectabl e, quadrivalent, preservative free [facility] 06-12-2018 influenza, injectabl e, quadrivalent, preservative free [facility] 05-01-2018 tuberculin skin test ; purified protein derivative solution, intradermal [facility] 09-12-2017 hepatitis B vaccine, adult dosage [facility] 04-13-2017 Human Papillomavirus 9-valent vaccine [facility], [place] 04-10-2017 hepatitis B vaccine, adult dosage [facility] 03-07-2017 hepatitis B vaccine, adult dosage [facility] 03-07-2017 meningococcal polysaccharide (groups A, C, Y and W-135) diphtheria toxoid conjugate vaccine (MCV4P) [place], [place] 03-07-2017 tuberculin skin test ; purified protein derivative solution, intradermal [place] 02-26-2017 tetanus toxoid, redu juve diphtheria toxoid, and acellular pertussis vaccine, adsorbed [facility] 02-26-2017 tuberculin skin test ; purified protein derivative solution, intradermal [place] 08-13-2014 Human Papillomavirus 9-valent vaccine [place] 04-01-2014 meningococcal polysaccharide (groups A, C, Y and W-135) diphtheria toxoid conjugate vaccine (MCV4P) [place] 02-10-2014 Human Papillomavirus 9-valent vaccine [place] Payers Date Payer Category Payer Unknown [id number] 2021 Unknown [id number] 2016 Private Health Insurance SHIV FIERRO [id number] 2016-Present [phone] [address] [place] [address] [id number] 1995 Unknown [id number] 1995 Unknown [id number] 1995 Unknown [id number] 1995 Unknown [id number] 1959 Unknown [id number] Social History Date Type Detail Facility Start: 03-18-2020 Tobacco smoking status NHIS Never sm oker [place] Start: 03-18-2020 Tobacco use and exposure Never used [place] Start: 02-05-2017 Alcohol Comment rarely [place], [place] Sex Assigned At Not on file [place], [place] Start: 1995 Sex Assigned At Female [employer]abel [employer] Work Phone: Summary Purpose Family History No Family History Records FoundNo Family History Records FoundNo Family History Records FoundNo Family History Records FoundNo Family History Records Found Advance Directives No Advanced Directives Records FoundDocuments on File Type Date Recorded Patient Signal Intelligence Analyst Expl anation ACP-Advance Directive ACP-Power of Catalogue And Special Products Manager Additional Source Comments INFORMATION SOURCE (unrecogn ized section and content) DATE CREATED AUTHOR 03/12/2020 [facility] DATE CREATED AUTHOR AUTHOR'S ORGANIZ ATION 08/20/2021 [facility] DATE CREATED AUTHOR AUTHOR'S ORGANIZ ATION 02/18/2022 [facility] DATE CREATED AUTHOR AUTHOR'S ORGANIZ ATION 08/25/2022 [facility] DATE CREATED AUTHOR AUTHOR'S ORGANIZ ATION 08/23/2023 [facility] dical Specialists [facility] FOR RECORDS PERTAINING TO PATIENTS WHO [...] BE BASED ON THE PRIMARY CLINICAL RECORDS. [employer] provides no warranty or guarantee of the accuracy or completeness of information in this document.
[2023-12-12 11:28] LABS: HCG Quantitative 14808 mIU/mL
== END 2023-12-12 08:47 | disposition home or self-care (01) ==
LOC: LAB 08:48
PROVIDERS: Visit Provider Obstetrics & Gynecology
DX: N92.6 Irregular menstruation, unspecified (principal)
CPT/HCPCS: 36415; 80053; 80061; 84702

== ENCOUNTER 2023-12-12 08:53 | Outpatient (OUT) | payer OTHER, SELFPAY ==
--- OUTSIDE RECORDS SUMMARY | 2023-12-12 09:16 | XMS_ITS | CCD ---
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 . Normal [facility] Comment on above: Performed By: #### 4 [id number] #### [facility] [address] [address] [address] Matias Shukla Age Gdln ACOG Testing - Normal [facility] Comment on above: Performed By: #### 4 [id number] #### [facility] [address] [address] [address] Matias Shukla DIAGNOSIS: Comment [facility] Comment on above: Result Comment: NEGA TIVE FOR INTRAEPITHELIAL LESION OR MALIGNANCY. Performed By: #### 4 [id number] #### [facility] [address] [address] [address] Matias Shukla Methodology: Comment [facility] Comment on above: Result Comment: This liquid based ThinPrep(R) pap test was screened with the use of an image guided system. Performed By: #### 4 [id number] #### [facility] [address] [address] [address] Matias Shukla Note: Comment [facility] Comment on above: Result Comment: The Pap smear is a screening test designed to aid in the detection of premalignant and malignant conditions of the uterine cervix. It is not a diagnostic procedure and should not be used as the sole means of detecting cervical cancer. Both false-positive and false-negative reports do occur. . Performed By: #### 4 [id number] #### [facility] [address] [address] [address] Matias Shukla Performed by: Comment [facility] Comment on above: Result Comment: Monika Prieto, Wall Cleaner (ASCP) Performed By: #### 4 [id number] #### [facility] [address] [address] [address] Matias Shukla Reflex Criteria: Comment [facility] Comment on above: Result Comment: The HPV DNA reflex criteria were not met with this specimen result therefore, no HPV testing was performed. . Performed By: #### 4 [id number] #### [facility] [address] [place] [address] Dr. Matias Shukla Specimen adequacy: Comment Normal [facility] Comment on above: Result Comment: Sati sfactory for evaluation. Endocervical and/or squamous metaplastic cells (endocervical component) are present. Performed By: #### 4 [id number] #### [facility] [address] [address] [address] Matias Shukla MUMPS IGG BLDon 02-07-2022 MUMPS IGG 1.14 Normal [facility] Comment on above: Result Comment: RAN IN TRIPLICATE NORMAL RANGES: < OR = 0.9O NEGATIVE ; NO DETECTABLE IgG ANTIBODY TO MUMPS 0.91 - 1.09 EQUIVOCAL; REPEAT TESTING SUGGESTED > OR = 1.10 POSITIVE ; INDICATES PRESENCE OF DETECTABLE IgG ANTIBODY TO MUMPS Performed By: #### 1 0055, [id number], 83414, 83084 #### [facility] [address] [place] [address], [facility] RUBELLAon 02-07-2022 RUBELLA 1.73 Normal [facility] Comment on above: Result Comment: NORM AL RANGES: < OR = 0.9O NEGATIVE ; NO DETECTABLE IgG ANTIBODY TO RUBELLA 0.91 - 1.09 EQUIVOCAL; REPEAT TESTING SUGGESTED > OR = 1.10 POSITIVE ; INDICATES PRESENCE OF DETECTABLE IgG ANTIBODY TO RUBELLA VIRUS Performed By: #### 1 0055, [id number], 39517, 20365 #### [facility] [address] [place] [address], [facility] RUBEOLA MEASLES IGGon 2021 RUBEO IGG 4.62 Normal [facility] Comment on above: Result Comment: NORM AL RANGES: < OR = 0.9O NEGATIVE ; NO DETECTABLE IgG ANTIBODY TO RUBEOLA 0.91 - 1.09 EQUIVOCAL; REPEAT TESTING SUGGESTED > OR = 1.10 POSITIVE ; INDICATES PRESENCE OF DETECTABLE IgG ANTIBODY TO RUBEOLA Performed By: #### 1 0055, 33967, 69242, 05376 #### [facility] [address] [place] [address], [facility] TB QUANTIFERON PLUSon 2021 MITOGEN MINUS NIL 8.15 IU/mL Normal [facility] Comment on above: Performed By: #### 3 1592 #### [facility] [address] [place] [address], [place] NIL 0.03 IU/mL Normal [facility] Comment on above: Performed By: #### 3 1592 #### [facility] [address] [place] [address], [facility] TB QUANTIFERON Negative Normal NEGATIVE [facility] Comment on above: Result Comment: Eric tiferon TB Gold Interpretation (IU/mL): NEGATIVE: M. tuberculosis infection not likely. Nil: <=8.0 TB1 Antigen minus Nil (RO5LX-BQI): <0.35 OR >=0.35; and <25% of Nil value. TB2 Antigen minus Nil (VU1GM-OXF): <0.35 OR >=0.35; and <25% of Nil [...] (https://www.cdc.gov/tb/publications/guidlines/default.htm Performed By: #### 3 1592 #### [facility] [address] [place] [address], [place] TB1 AG 0.03 IU/mL Normal [facility] Comment on above: Performed By: #### 3 1592 #### [facility] [address] [place] [address], [place] TB1 AG MINUS NIL 0.00 IU/mL Normal [facility] Comment on above: Performed By: #### 3 1592 #### [facility] [address] [place] [address], [facility] TB2 AG 0.04 IU/mL Normal [facility] Comment on above: Performed By: #### 3 1592 #### [facility] [address] [facility] [place] [address], [facility] TB2 AG MINUS NIL 0.01 IU/mL Normal [facility] Comment on above: Performed By: #### 3 1592 #### [facility] [address] [place], [place] [id number] [place] [address] VARICELLA ZOSTER IGGon 02-07 VARICELLA IGG 2.60 Normal [facility] Comment on above: Result Comment: NORM AL RANGES: < OR = 0.9O NEGATIVE ; NO DETECTABLE IgG ANTIBODY TO VARICELLA-ZOSTER VIRUS 0.91 - 1.09 EQUIVOCAL; REPEAT TESTING SUGGESTED > OR = 1.10 POSITIVE ; INDICATES PRESENCE OF DETECTABLE IgG ANTIBODY TO VARICELLA-ZOSTER VIRUS Performed By: #### 1 0055, 14518, 99763, 55856 #### [facility] [address] [place], [place] [id number] [place] [address] HPV DNA High Riskon 08-19-19 22 HPV Interp Normal [facility] Comment on above: Result Comment: This [...] other forensic purposes. Performed By: #### [facility] #### [facility] [address] [place] [address] Production Gear Cutter: Rickey Watson MD HPV Type 16 Not detected Normal [facility] Comment on above: Performed By: #### H PVH #### [address] [address] Production Gear Cutter: Rickey Watson MD HPV Type 18 Not detected Normal [facility] Comment on above: Performed By: #### H PVH #### [address] [address] Production Gear Cutter: Rickey Watson MD Other High Risk HPV Not detected [facility] Comment on above: Performed By: #### H PVH #### [address] [address] Production Gear Cutter: Rickey Watson MD HPV DNA High Riskon 08-18-19 Source .GENITAL - NOT SPECIFIED Normal [facility] Comment on above: Performed By: #### H PVH #### [address] [address] Production Gear Cutter: Rickey Watson MD HPV Sample .THIN PREP Normal [facility] Comment on above: Performed By: #### H PVH #### [address] [address] Production Gear Cutter: Rickey Watson MD Chlamydia/GC DNA, TPon 08-10 Chlamydia Probe, TP Negative Normal NEG [facility] Comment on above: Result Comment: CHLA [...] target. Performed By: #### C YTCGP #### [address] [id number] Production Gear Cutter: Rickey Watson MD Gonorrhea Probe, TP Negative Normal NEG [facility] Comment on above: Result Comment: NEIS [...] target. Performed By: #### C YTCGP #### [address] [address] Production Gear Cutter: Rickey Watson MD Cytologyon 08-08-2021 Cytology (NOTE) INTERPRETATION Cervical material, (ThinPrep vial, Imaging-assisted review): Specimen Adequacy: Satisfactory for evaluation. - Endocervical/transform ation zone component present. - Scant cellularity. Descriptive Diagnosis: Atypical squamous cells of undetermined significance (ASC-US). Wall Cleaner: AMANDA Michaels M.D. Electronically Signed Out rdd/08/18/2021 Amendments Originally Reported As: Procedure/Addendum Source: Clinical History LMP: Patient Name: Med Rec: Path Number: Fax: Normal [facility] Comment on above: Performed By: #### P PPVP #### [address] [address] Production Gear Cutter: Rickey Watson MD QuantiFERON TBon 12-24-2020 Quanti Binu minus NIL 8.10 IU/mL [facility] Comment on above: Performed By: #### R UBI, LUIZ, MARITZA, VZI #### [address] [address] Production Gear Cutter: Rickey Watson MD #### AQF #### [facility] [address] [place] [address] Production Gear Cutter: Mark Grossman MD Quanti TB Gold Plus Negative Normal Negative [facility] Comment on above: Result Comment: (NOT [...] Mycobacterium tuberculosis Infection --- [place], 2010 (http://www.cdc.gov/mmwr/preview/mmwrhtml/su3309u4.htm), for more information concerning test performance in low-prevalence populations and use in occupational screening. Performed By: #### R LUIZ MCKEON MUI, MADHUI #### [employer] [address] [place], [place] [id number] Production Gear Cutter: Rickey Watson MD #### AQF #### [facility] [employer] [address] [place] [address] Production Gear Cutter: Mark Grossman MD Quanti TB1 minus NIL 0.00 IU/mL Normal 0.00-0.34 [facility] Comment on above: Performed By: #### R LUIZ MCKEON MUI, VZI #### [employer] [address] [place] [address] Production Gear Cutter: Rickey Watson MD #### AQF #### [employer] [address] [place] [address] Production Gear Cutter: Mark Grossman MD Quanti TB2 minus NIL 0.01 IU/mL Normal 0.00-0.34 [facility] Comment on above: Performed By: #### R UBI, LUIZ, MARITZA, VZI #### [address] [address] Production Gear Cutter: Rickey Watson MD #### AQF #### [address] [address] Production Gear Cutter: Mark Grossman MD QuantiFERON NIL 0.01 IU/mL Normal [facility] Comment on above: Result Comment: (NOT E) Performed By: [facility] [employer] [address] [place], [place] [id number] Research Interviewer: Carolyn Wei MD Performed By: #### R UBI, LUIZ, MARITZA, VZI #### [place] [address] Production Gear Cutter: Rickey Watson MD #### AQF #### [address] [id number] Production Gear Cutter: Mark Grossman MD Measles (Rubeola) Imon 12-22 Measles (Rubeola) Im 3.68 Normal >1.09 [facility] Comment on above: Result Comment: Interpretation: IMMUNE Reference Range: <0.91 Not Immune 0.91-1.09 Equivocal >1.09 Immune Performed By: #### R UBI, LUIZ, MARITZA, VZI #### [place] [id number] Production Gear Cutter: Rickey Watson MD #### AQF #### [address] [id number] Production Gear Cutter: Mark Grossman MD Mumps,Immun,Abon 12-22-2020 Mumps,Immun,Ab 1.16 Normal >1.09 [facility] Comment on above: Result Comment: Interpretation: IMMUNE Reference Range: <0.91 Not Immune 0.91-1.09 Equivocal >1.09 Immune Performed By: #### R UBI, LUIZ, MARITZA, VZI #### [address] [address] Production Gear Cutter: Rickey Watson MD #### AQF #### [facility] [address] [place], [place] [id number] Production Gear Cutter: Mark Grossman MD VZ Immunityon 12-22-2020 VZ Immunity 2.24 Normal >1.09 [facility] Comment on above: Result Comment: Interpretation: IMMUNE Reference Range: <0.91 Not Immune 0.91-1.09 Equivocal >1.09 Immune Performed By: #### R UBI, LUIZ, MARITZA, VZI #### [address] [id number] Production Gear Cutter: Rickey Watson MD #### AQF #### [facility] [address] [place], [place] [id number] Production Gear Cutter: Mark Grossman MD Rubella Ab, IgGon 12-21-2020 Rubella Ab, IgG 16.2 IU/mL Normal [facility] Comment on above: Result Comment: REFERENCE RANGE: <5.0 NON-REACTIVE (non-immune) 5.0 TO 9.9 EQUIVOCAL >=10.0 REACTIVE (immune) Performed By: #### R UBI, LUIZ, MARITZA, VZI #### [place] [address] Production Gear Cutter: Rickey Watson MD #### AQF #### [facility] [address] [place] [address] Production Gear Cutter: Mark Grossman MD Rubella antibody, IgGOrdered By: Jimmy Meehan on 12-21-2020 Rubella virus IgG Ql (S) 16.2 IU/mL [facility] [employer] Phone: Comment on above: REFERENCE RANGE: <5.0 NON-REACTIVE (non-immune) 5.0 TO 9.9 EQUIVOCAL >=10.0 REACTIVE (immune) [employer] Work Phone: Lab - Toxicology Resultson 0 03-11-2020 Lab - Toxicology Results [id number]#1.0 [id number] Normal [facility] QuantiFERON TB Gold (In Tube ) LCon 03-08-2020 QuantiFERON Criteria LC Comment [facility] Comment on above: Result Comment: The QuantiFERON-TB Gold Plus result is determined by subtracting the Nil value from either TB antigen (Ag) tube. The mitogen tube serves as a control for the test. Performed By: #### 4 [id number], [id number] #### [facility] (DEFAULT) [address] [place] [address] QuantiFERON M. tuberculosis1 Ag Value LC 0.09 IU/mL [facility] Comment on above: Performed By: #### 4 [id number], [id number] #### [facility] (DEFAULT) [address] [place] [address] QuantiFERON M. tuberculosis2 Ag Value LC 0.08 IU/mL [facility] Comment on above: Performed By: #### 4 [id number], [id number] #### [facility] (DEFAULT) [address] [place] [address] QuantiFERON Mitogen Value LC >10.00 [facility] Comment on above: Result Comment: Perf ormed At: [facility] [id number] Kat Arevalo PhD Ph:[phone] Performed By: #### 4 [id number], [id number] #### [facility] (DEFAULT) [address] [place] [address] QuantiFERON Nil Value LC 0.01 IU/mL [facility] Comment on above: Performed By: #### 4 [id number], [id number] #### [facility] (DEFAULT) [address] [place] [address] QuantiFERON-TB Gold Plus LCo n 03-08-2020 QuantiFERON-TB Gold Plus LC Negative Negative [facility] Comment on above: Result Comment: Perf ormed At: [address] [id number] Kat Arevalo PhD Ph:[phone] Performed By: #### 4 [id number], [id number] #### [facility] (DEFAULT) [address] [place] [address] QuantiFERON Incubation LC Incubation performed. [facility] Comment on above: Result Comment: Perf ormed At: [address] [id number] Kat Arevalo PhD Ph:[phone] Performed By: #### 4 [id number], [id number] #### [facility] (DEFAULT) [address] [place] [address] HBSab Qnt LCon 03-05-2020 Hep B Surf Ab Quant LC 145.6 mIU/mL Immunity>9.9 [facility] Comment on above: Result Comment: Stat us of Immunity Anti-HBs Level Inconsistent with Immunity 0.0 - 9.9 Consistent with Immunity >9.9 Performed At: [address] [id number] Kat Arevalo PhD Ph:[phone] Performed By: #### 1 [id number], [id number] #### [facility] (DEFAULT) [address] [place] [address] Measles/Mumps/Rubella Immuni ty LCon 03-05-2020 Mumps Abs, IgG LC 69.5 AU/mL Immune >10.9 [facility] Comment on above: Result Comment: Nega tive <9.0 Equivocal 9.0 - 10.9 Positive >10.9 A positive result generally indicates past exposure to Mumps virus or previous vaccination. Performed At: [address] [id number] Kat Arevalo PhD Ph:[phone] Performed By: #### 1 [id number], [id number] #### [facility] (DEFAULT) [address] [place] [address] Rubella Antibodies, IgG LC 1.75 index Immune >0.99 [facility] Comment on above: Result Comment: Non- immune <0.90 Equivocal 0.90 - 0.99 Immune >0.99 Performed By: #### 1 [id number], [id number] #### [facility] (DEFAULT) [address] [place] [address] Rubeola Ab, IgG, EIA LC >300.0 Immune >16.4 [facility] Comment on above: Result Comment: Nega tive <13.5 Equivocal 13.5 - 16.4 Positive >16.4 Presence of antibodies to Rubeola is presumptive evidence of immunity except when acute infection is suspected. Performed By: #### 1 [id number], [id number] #### [facility] (DEFAULT) [address] [place] [address] Nicotine Metabolite, Urine L Con 03-05-2020 Cotinine LC Negative Ukrxag=349 [facility] Comment on above: Result Comment: Perf ormed At: [facility] [address] [facility] [id number] Jose Schwartz PhD Ph:[phone] Performed By: #### 1 [id number] #### [facility] (DEFAULT) [address] [place] [address] Encounters Encounter Date Encounter Type Care Provider Facility Start: 08-22-2023 End: 08-22-2023 ambulatory JASIEL RICHARD Not Available Start: 07-04-2023 End: 07-04-2023 ambulatory JASIEL RICHARD Not Available Start: 08-21-2022 End: 08-21-[address] DOCTOR MERCADO Facility: Start: 08-08-2021 End: 08-09-2021 ambulatory SHANTELLE DEAN [facility] Start: 12-21-2020 End: 12-22-2020 ambulatory JIMMY MEEHAN [facility] Start: 12-21-2020 End: 12-21-2020 Subsequent hospital visit by physician Shantelle Dean PA-C Work Phone: [facility] Start: 03-18-2020 End: 03-18-2020 Subsequent hospital visit by physician Shantelle [facility] Procedures Date Procedure Procedure Detail Performing Clinician Start: 12-21-2020 Antibody rubella Ebony Meehan MD Work Phone: Plan of Treatment Date Care Activity Detail Author Start: 02-26-2027 DTaP/Tdap/Td vaccine (7 - Td) DTaP/Tdap/Td vaccine (7 - Td) [place] Start: 03-18-2023 Screening for malign ant neoplasm of cervix Cervical cancer screen [facility] Phone: Start: 06-12-2021 Screening for malign ant neoplasm of cervix Cervical cancer screen [place] Start: 03-30-2021 Influenza vaccination Flu vacc ine ([facility]ed[facility] Start: 03-30-2020 Influenza vaccination Flu vaccine (# 1) [place], [place] Start: 06-12-2019 Screening for Chlamy flaco trachomatis Chlamydia screen [place] Start: 09-13-2011 Hepatitis A vaccine (2 of 2 - 2-dose series) Hepatitis A vaccine (2 of 2 - 2-dose series) [place] Start: 2007 COVID-19 Vaccine (1) COVID-19 Vaccin e (1) [facility] Phone: Start: 1995 Hepatitis C screening Hepatitis C sc reen [facility] Phone: End: 12-21-2020 Mumps Antibody, IgG Mumps Antibody, IgG Lab Routine Once for 1 Occurrences starting 12/21/2020 until 12/21/2020 [facility] Phone: Comment on above: Once for 1 Occurrenc es starting 12/21/2020 until 12/21/2020 Mumps Antibody, IgG Mumps Antibo dy, IgG Lab Routine 12/21/2020 4:27 PM EDT [facility] Phone: End: 12-21-2020 Quantiferon TB Gold Quantiferon TB Gold Microbiology Routine Once for 1 Occurrences starting 12/21/2020 until 12/21/2020 [facility] Phone: Comment on above: Once for 1 Occurrenc es starting 12/21/2020 until 12/21/2020 Quantiferon TB Gold Quantiferon TB Gold Microbiology Routine 12/21/2020 4:27 PM EDT [facility] Phone: End: 12-21-2020 Rubeola Antibody, IgG Rubeola Antibody, IgG Lab Routine Once for 1 Occurrences starting 12/21/2020 until 12/21/2020 [facility] Phone: Comment on above: Once for 1 Occurrenc es starting 12/21/2020 until 12/21/2020 Rubeola Antibody, IgG Rubeola An tibody, IgG Lab Routine 12/21/2020 4:27 PM EDT [facility] Phone: End: 12-21-2020 Varicella Zoster Antibody, IgG Varicella Zoster Antibody, IgG Lab Routine Once for 1 Occurrences starting 12/21/2020 until 12/21/2020 [facility] Phone: Comment on above: Once for 1 Occurrenc es starting 12/21/2020 until 12/21/2020 Varicella Zoster Antibody, IgG Varicella Zoster Antibody, IgG Lab Routine 12/21/2020 4:27 PM EDT [facility] Phone: Immunizations Immunization Date Immunization Notes Care Provider Durga hutchins 03-09-2020 tuberculin skin test ; purified protein derivative solution, intradermal [facility] 04-28-2019 influenza, injectabl e, quadrivalent, preservative free [facility] 06-12-2018 influenza, injectabl e, quadrivalent, preservative free [facility] 05-01-2018 tuberculin skin test ; purified protein derivative solution, intradermal [facility] 09-12-2017 hepatitis B vaccine, adult dosage [facility] 04-13-2017 Human Papillomavirus 9-valent vaccine [facility], [place] 04-10-2017 hepatitis B vaccine, adult dosage [facility] 03-07-2017 hepatitis B vaccine, adult dosage [facility] 03-07-2017 meningococcal polysaccharide (groups A, C, Y and W-135) diphtheria toxoid conjugate vaccine (MCV4P) [place], [place] 03-07-2017 tuberculin skin test ; purified protein derivative solution, intradermal [place] 02-26-2017 tetanus toxoid, redu juve diphtheria toxoid, and acellular pertussis vaccine, adsorbed [facility], [place] 02-26-2017 tuberculin skin test ; purified protein derivative solution, intradermal [place] 08-13-2014 Human Papillomavirus 9-valent vaccine [place] 04-01-2014 meningococcal polysaccharide (groups A, C, Y and W-135) diphtheria toxoid conjugate vaccine (MCV4P) [place] 02-10-2014 Human Papillomavirus 9-valent vaccine [place] Payers Date Payer Category Payer Unknown [id number] 2021 Unknown [id number] 2016 Private Health Insurance SHIV FIERRO [id number] 2016-Present [phone] [address] [place] [address] [id number] 1995 Unknown [id number] 1995 Unknown [id number] 1995 Unknown [id number] 1995 Unknown [id number] 1959 Unknown [id number] Social History Date Type Detail Facility Start: 03-18-2020 Tobacco smoking status NHIS Never sm oker [place] Start: 03-18-2020 Tobacco use and exposure Never used [place] Start: 02-05-2017 Alcohol Comment rarely [place] Sex Assigned At Not on file [place] Start: 1995 Sex Assigned At Female [employer] Work Phone: Summary Purpose Family History No Family History Records FoundNo Family History Records FoundNo Family History Records FoundNo Family History Records FoundNo Family History Records Found Advance Directives No Advanced Directives Records FoundDocuments on File Type Date Recorded 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 Additional Source Comments INFORMATION SOURCE (unrecogn ized section and content) DATE CREATED AUTHOR 03/12/2020 [facility] DATE CREATED AUTHOR AUTHOR'S ORGANIZ ATION 08/20/2021 [facility] DATE CREATED AUTHOR AUTHOR'S ORGANIZ ATION 02/18/2022 [facility] DATE CREATED AUTHOR AUTHOR'S ORGANIZ ATION 08/25/2022 [facility] DATE CREATED AUTHOR AUTHOR'S ORGANIZ ATION 08/23/2023 [facility] dical Specialists [facility] FOR RECORDS PERTAINING TO PATIENTS WHO [...] BE BASED ON THE PRIMARY CLINICAL RECORDS. [email or web address] provides no warranty or guarantee of the accuracy or completeness of information in this document.
[2023-12-12 12:00] LABS: Alanine Aminotransferase 56 U/L (14-59); Albumin Globulin Ratio 1.1; Albumin Level 3.5 g/dL (3.4-5.0); Alkaline Phosphatase 70 U/L (46-116); Aspartate Amino Transferase 30 U/L (15-37); BUN Creatinine Ratio 10.8; Bilirubin Total 0.4 mg/dL (0.2-1.0); Carbon Dioxide 25.8 mmol/L (21.0-32.0); Chloride 102 mmol/L (98-107); Chol HDL Ratio 2.8; Cholesterol 149 mg/dL (<=200); Estimated GFR (African America >60 (>=60); Estimated GFR (Non-African Ame >60 (>=60); Globulin 3.2 g/dL; Glucose 89 mg/dL (74-106); HDL Cholesterol 54 mg/dL (40-60); LDL Cholesterol Calculated 84.4 mg/dL; Potassium 3.8 mmol/L (3.5-5.1); Sodium 137 mmol/L (136-145); Total Protein 6.7 g/dL (6.4-8.2); Triglycerides 53 mg/dL (<=150); VLDL CHOLESTEROL 10.6 mg/dL
== END 2023-12-12 08:54 | disposition home or self-care (01) ==
LOC: LAB 08:54
DX: Z00.00 Encounter for general adult medical examination without abnormal findings (principal); N92.6 Irregular menstruation, unspecified
CPT/HCPCS: 36415; 80053; 80061; 84702

== ENCOUNTER 2023-12-17 10:37 | Outpatient (OUT) | payer OTHER, SELFPAY ==
--- NOTE | 2023-12-17 10:45 | US_ITS ---
[address] [address] Patient Name: ZAKIA SEARS MRN: [id number] date: 1995 Sex: F Assigned Patient Location: Current Patient Location: Accession/Order Number: [id number] Exam Date: 12/17/2023 10:46 Report Date: 12/17/2023 11:54 At the request of: JASIEL RAMOS Procedure: US OB transvaginal EXAMINATION: US OB transvaginal HISTORY: Bleeding in early O20.9 COMPARISON: Ultrasound OB transvaginal 12/10/2023 FINDINGS: GESTATIONAL SAC: Present and normal appearing. YOLK SAC: Present and normal appearing. POLE: Present and normal appearing. CARDIAC: Present. UTERUS: Normal size and appearance. OVARIES: Right: Corpus lutein cyst. Left: Normal. CERVIX: 3.7 cm in length and closed. CUL-DE-SAC: Normal. OTHER: None. AGE BY LMP: 8 weeks 1 day VICTORINA BY LMP: 07/27/2024 AGE BY US CRL: 7 weeks 1 day VICTOR[place] BY US CRL: 08/03/2024 US/US OB transvaginal IMPRESSION: 1. Single live intrauterine . Electronically authenticated by: MARIAM GARCIA Date: 12/17/2023 11:54
== END 2023-12-17 10:38 | disposition home or self-care (01) ==
LOC: US 10:38
PROVIDERS: Visit Provider Obstetrics & Gynecology
DX: O20.9 Hemorrhage in early pregnancy, unspecified (principal); O36.80X0 Pregnancy with inconclusive fetal viability, not applicable or unspecified; Z3A.01 Less than 8 weeks gestation of pregnancy
CPT/HCPCS: 76817

== ENCOUNTER 2024-01-17 13:27 | Outpatient (OUT) | payer OTHER, SELFPAY ==
--- NOTE | 2024-01-17 13:29 | US_ITS ---
[address] [address] Patient Name: ZAKIA SEARS MRN: [id number] date: 1995 Sex: F Assigned Patient Location: [facility] Current Patient Location: LAB Accession/Order Number: [id number] Exam Date: 01/17/2024 13:29 Report Date: 01/17/2024 16:26 At the request of: JASIEL RAMOS Procedure: US OB transvaginal EXAMINATION: US OB transvaginal HISTORY: MISSED MENSES COMPARISON: No relevant comparison available. FINDINGS: GESTATIONAL SAC: Present and normal appearing. YOLK SAC: Present and normal appearing. POLE: Present and normal appearing. CARDIAC: Present. UTERUS: Normal size and appearance. OVARIES: Right: Normal. Left: Not seen. CERVIX: 4.3 cm in length and closed. CUL-DE-SAC: Normal. OTHER: None. AGE BY LMP: 12 weeks 4 days VICTORINA BY LMP: 07/27/2024 AGE BY US CRL: 12 weeks 0 days VICTOR[place] BY US CRL: 07/31/2024 US/US OB transvaginal IMPRESSION: 1. Single live intrauterine . Electronically authenticated by: MARIAM GARCIA Date: 01/17/2024 16:26
--- OUTSIDE RECORDS SUMMARY | 2024-01-17 13:50 | XMS_ITS | CCD ---
Author Organization [facility] Care Team Providers Care Case Loader Operator Name Role Phone Shantelle Dean Primary Care Provider [phone] JIMMY MEEHAN Referring Unavailable SHANTELLE DEAN Primary [...] 2: 21 to 29on 08-25-2022 . . [facility] Comment on above: Performed By: #### 4 [id number] #### [facility] [address] [address] [address] Matias Shukla Age Gdln ACOG Testing - [facility] Comment on above: Performed By: #### 4 [id number] #### [facility] [address] [address] [address] Matias Shukla DIAGNOSIS: Comment [facility] Comment on above: Result Comment: NEGA TIVE FOR INTRAEPITHELIAL LESION OR MALIGNANCY. Performed By: #### 4 [id number] #### [facility] [address] [address] [address] Matias Shukla Methodology: Comment [facility] Comment on above: Result Comment: This liquid based ThinPrep(R) pap test was screened with the use of an image guided system. Performed By: #### 4 [id number] #### [facility] [address] [address] [address] Matias Shukla Note: Comment [facility] Comment on above: Result Comment: The Pap smear is a screening test designed to aid in the detection of premalignant and malignant conditions of the uterine cervix. It is not a diagnostic procedure and should not be used as the sole means of detecting cervical cancer. Both false-positive and false-negative reports do occur. . Performed By: #### 4 [id number] #### [facility] [address] [address] [address] Matias Shukla Performed by: Comment [facility] Comment on above: Result Comment: Monika Prieto, Senior Field Engineer (ASCP) Performed By: #### 4 [id number] #### [facility] [address] [address] [address] Matias Shukla Reflex Criteria: Comment [facility] Comment on above: Result Comment: The HPV DNA reflex criteria were not met with this specimen result therefore, no HPV testing was performed. . Performed By: #### 4 [id number] #### [facility] [address] [address] [address] Matias Shukla Specimen adequacy: Comment Normal [facility] Comment on above: Result Comment: Sati sfactory for evaluation. Endocervical and/or squamous metaplastic cells (endocervical component) are present. Performed By: #### 4 [id number] #### [facility] [address] [place], [place] [address] Dr. Matias Shukla MUMPS IGG BLDon 02-07-2022 MUMPS IGG 1.14 Normal [facility] Comment on above: Result Comment: RAN IN TRIPLICATE NORMAL RANGES: < OR = 0.9O NEGATIVE ; NO DETECTABLE IgG ANTIBODY TO MUMPS 0.91 - 1.09 EQUIVOCAL; REPEAT TESTING SUGGESTED > OR = 1.10 POSITIVE ; INDICATES PRESENCE OF DETECTABLE IgG ANTIBODY TO MUMPS Performed By: #### 1 0055, 82987, 56646, [id number] #### [facility] [address] [place] [address], [facility] RUBELLAon 02-07-2022 RUBELLA 1.73 Normal [facility] Comment on above: Result Comment: NORM AL RANGES: < OR = 0.9O NEGATIVE ; NO DETECTABLE IgG ANTIBODY TO RUBELLA 0.91 - 1.09 EQUIVOCAL; REPEAT TESTING SUGGESTED > OR = 1.10 POSITIVE ; INDICATES PRESENCE OF DETECTABLE IgG ANTIBODY TO RUBELLA VIRUS Performed By: #### 1 0055, 28668, 95358, 96821 #### [facility] [address] [place] [address], [facility] RUBEOLA MEASLES IGGon 2021 RUBEO IGG 4.62 Normal [facility] Comment on above: Result Comment: NORM AL RANGES: < OR = 0.9O NEGATIVE ; NO DETECTABLE IgG ANTIBODY TO RUBEOLA 0.91 - 1.09 EQUIVOCAL; REPEAT TESTING SUGGESTED > OR = 1.10 POSITIVE ; INDICATES PRESENCE OF DETECTABLE IgG ANTIBODY TO RUBEOLA Performed By: #### 1 0055, 74596, 36757, 89579 #### [facility] [address] [place] [address], [facility] TB QUANTIFERON PLUSon 2021 MITOGEN MINUS NIL 8.15 IU/mL Normal [facility] Comment on above: Performed By: #### 3 1592 #### [facility] [address] [place] [address], [facility] NIL 0.03 IU/mL Normal [facility] Comment on above: Performed By: #### 3 1592 #### [facility] [address] [place] [address], [facility] TB QUANTIFERON Negative Normal NEGATIVE [facility] Comment on above: Result Comment: Eric tiferon TB Gold Interpretation (IU/mL): NEGATIVE: M. tuberculosis infection not likely. Nil: <=8.0 TB1 Antigen minus Nil (GF5HK-LDN): <0.35 OR >=0.35; and <25% of Nil value. TB2 Antigen minus Nil (TZ6YK-DZG): <0.35 OR >=0.35; and <25% of Nil [...] (https://www.cdc.gov/tb/publications/guidlines/default.htm Performed By: #### 3 1592 #### [facility] [address] [place] [address], [facility] TB1 AG 0.03 IU/mL Normal [facility] Comment on above: Performed By: #### 3 1592 #### [facility] [address] [place] [address], [place] TB1 AG MINUS NIL 0.00 IU/mL Normal [facility] [place] [facility] Comment on above: Performed By: #### 3 1592 #### [facility] [address] [place] [address], [facility] TB2 AG 0.04 IU/mL Normal [facility] Comment on above: Performed By: #### 3 1592 #### [facility] [address] [facility] [place] [address], [facility] TB2 AG MINUS NIL 0.01 IU/mL Normal [facility] Comment on above: Performed By: #### 3 1592 #### [facility] [address] [place], [place] [id number] [place] [address] VARICELLA ZOSTER IGGon 02-07 VARICELLA IGG 2.60 Normal [facility] [place] Comment on above: Result Comment: NORM AL RANGES: < OR = 0.9O NEGATIVE ; NO DETECTABLE IgG ANTIBODY TO VARICELLA-ZOSTER VIRUS 0.91 - 1.09 EQUIVOCAL; REPEAT TESTING SUGGESTED > OR = 1.10 POSITIVE ; INDICATES PRESENCE OF DETECTABLE IgG ANTIBODY TO VARICELLA-ZOSTER VIRUS Performed By: #### 1 0055, 86496, 73417, 21518 #### [facility] [address] [place], [place] [id number] [place] [address] HPV DNA High Riskon 08-19-19 22 HPV Interp Normal [facility] Comment on above: Result Comment: This test [...] other forensic purposes. Performed By: #### H [facility] #### [facility] [address] [place] [address] Candle Maker: Rickey Watson MD HPV Type 16 Not detected Normal [facility] Comment on above: Performed By: #### H PVH #### [address] [address] Candle Maker: Rickey Watson MD HPV Type 18 Not detected Normal [facility] Comment on above: Performed By: #### H PVH #### [address] [address] Candle Maker: Rickey Watson MD Other High Risk HPV Not detected Normal [facility] Comment on above: Performed By: #### H PVH #### [address] [address] Candle Maker: Rickey Watson MD HPV DNA High Riskon 08-18-19 Source .GENITAL - NOT SPECIFIED Normal [facility] Comment on above: Performed By: #### H PVH #### [address] [address] Candle Maker: Rickey Watson MD HPV Sample .THIN PREP Normal [facility] Comment on above: Performed By: #### H PVH #### [address] [address] Candle Maker: Rickey Watson MD Chlamydia/GC DNA, TPon 08-10 Chlamydia Probe, TP Negative Normal NEG [facility] Comment on above: Result Comment: CHLA MYDIA [...] target. Performed By: #### C YTCGP #### [address] [id number] Candle Maker: Rickey Watson MD Gonorrhea Probe, TP Negative Normal NEG [facility] Comment on above: Result Comment: NEIS SERIA [...] target. Performed By: #### C YTCGP #### [address] [address] Candle Maker: Rickey Watson MD Cytologyon 08-08-2021 Cytology (NOTE) INTERPRETATION Cervical material, (ThinPrep vial, Imaging-assisted review): Specimen Adequacy: Satisfactory for evaluation. - Endocervical/transform ation zone component present. - Scant cellularity. Descriptive Diagnosis: Atypical squamous cells of undetermined significance (ASC-US). Senior Field Engineer: AMANDA Michaels M.D. Electronically Signed Out rdd/08/18/2021 Amendments Originally Reported As: Procedure/Addendum Source: Clinical History LMP: Patient Name: Med Rec: Path Number: Fax: Normal [facility] Comment on above: Performed By: #### P PPVP #### [address] [address] Candle Maker: Rickey Watson MD QuantiFERON TBon 12-24-2020 Quanti Binu minus NIL 8.10 IU/mL Normal [facility] Comment on above: Performed By: #### R UBI, LUIZ, MARITZA, VZI #### [address] [id number] Candle Maker: Rickey Watson MD #### AQF #### [address] [address] Candle Maker: Mark Grossman MD Quanti TB Gold Plus Negative Normal Negative [facility] Comment on above: Result Comment: (NOT E) [...] Mycobacterium tuberculosis Infection --- [place], 2010 (http://www.cdc.gov/mmwr/preview/mmwrhtml/dx5349i8.htm), for more information concerning test performance in low-prevalence populations and use in occupational screening. Performed By: #### R LUIZ MCKEON MUI, MADHUI #### [employer] [address] [place], [place] [id number] Candle Maker: Rickey Watson MD #### AQF #### [facility] [address] [place] [address] Candle Maker: Mark Grossman MD Quanti TB1 minus NIL 0.00 IU/mL Normal 0.00-0.34 [facility] Comment on above: Performed By: #### R LUIZ MCKEON MUI, VZI #### Heavy [address] [place] [address] Candle Maker: Rickey Watson MD #### AQF #### [facility] [address] [place] [address] Candle Maker: Mark Grossman MD Quanti TB2 minus NIL 0.01 IU/mL Normal 0.00-0.34 [facility] Comment on above: Performed By: #### R UBI, LUIZ, MARITZA, VZI #### [address] [address] Candle Maker: Rickey Watson MD #### AQF #### [address] [address] Candle Maker: Mark Grossman MD QuantiFERON NIL 0.01 IU/mL Normal [facility] Comment on above: Result Comment: (NOT E) Performed By: [address] [id number] Rivet Sticker: Carolyn Wei MD Performed By: #### R UBAngelica, LUIZ, MARITZA, VZI #### [place] [address] Candle Maker: Rickey Watson MD #### AQF #### [address] [id number] Candle Maker: Mark Grossman MD Measles (Rubeola) Imon 12-22 Measles (Rubeola) Im 3.68 Normal >1.09 [facility] Comment on above: Result Comment: Interpretation: IMMUNE Reference Range: <0.91 Not Immune 0.91-1.09 Equivocal >1.09 Immune Performed By: #### R UBI, LUIZ, MARITZA, VZI #### [address] [address] Candle Maker: Rickey Watson MD #### AQF #### [address] [id number] Candle Maker: Mark Grossman MD Mumps,Immun,Abon 12-22-2020 Mumps,Immun,Ab 1.16 Normal >1.09 [facility] Comment on above: Result Comment: Interpretation: IMMUNE Reference Range: <0.91 Not Immune 0.91-1.09 Equivocal >1.09 Immune Performed By: #### R UBI, LUIZ, MARITZA, VZI #### [address] [id number] Candle Maker: Rickey Watson MD #### AQF #### [facility] [address] [place], [place] [id number] Candle Maker: Mark Grossman MD VZ Immunityon 12-22-2020 VZ Immunity 2.24 Normal >1.09 [facility] Comment on above: Result Comment: Interpretation: IMMUNE Reference Range: <0.91 Not Immune 0.91-1.09 Equivocal >1.09 Immune Performed By: #### R UBI, LUIZ, MARITZA, VZI #### [address] [address] Candle Maker: Rickey Watson MD #### AQF #### [facility] [address] [place] [address] Candle Maker: Mark Grossman MD Rubella Ab, IgGon 12-21-2020 Rubella Ab, IgG 16.2 IU/mL Normal [facility] Comment on above: Result Comment: REFERENCE RANGE: <5.0 NON-REACTIVE (non-immune) 5.0 TO 9.9 EQUIVOCAL >=10.0 REACTIVE (immune) Performed By: #### R UBAngelica, LUIZ, MARITZA, VZI #### [place] [address] Candle Maker: Rickey Watson MD #### AQF #### [facility] [address] [place] [address] Candle Maker: Mark Grossman MD Rubella antibody, IgGOrdered By: Jimmy Meehan on 12-21-2020 Rubella virus IgG Ql (S) 16.2 IU/mL [facility] [employer] Work Phone: Comment on above: REFERENCE RANGE: <5.0 NON-REACTIVE (non-immune) 5.0 TO 9.9 EQUIVOCAL >=10.0 REACTIVE (immune) [employer] Work Phone: Lab - Toxicology Resultson 0 03-11-2020 Lab - Toxicology Results [id number]#1.0 [id number] Normal [facility] QuantiFERON TB Gold (In Tube ) LCon 03-08-2020 QuantiFERON Criteria LC Comment [facility] Comment on above: Result Comment: The QuantiFERON-TB Gold Plus result is determined by subtracting the Nil value from either TB antigen (Ag) tube. The mitogen tube serves as a control for the test. Performed By: #### 4 [id number], [id number] #### [facility] (DEFAULT) [address] [place] [address] QuantiFERON M. tuberculosis1 Ag Value LC 0.09 IU/mL [facility] Comment on above: Performed By: #### 4 [id number], [id number] #### [facility] (DEFAULT) [address] [place] [address] QuantiFERON M. tuberculosis2 Ag Value LC 0.08 IU/mL [facility] Comment on above: Performed By: #### 4 [id number], [id number] #### [facility] (DEFAULT) [address] [place] [address] QuantiFERON Mitogen Value LC >10.00 [facility] Comment on above: Result Comment: Perf ormed At: [facility] [id number] Kat Arevalo PhD Ph:[phone] Performed By: #### 4 [id number], [id number] #### [facility] (DEFAULT) [address] [place] [address] QuantiFERON Nil Value LC 0.01 IU/mL [facility] Comment on above: Performed By: #### 4 [id number], [id number] #### [facility] (DEFAULT) [address] [place] [address] QuantiFERON-TB Gold Plus LCo n 03-08-2020 QuantiFERON-TB Gold Plus LC Negative Negative [facility] Comment on above: Result Comment: Perf ormed At: [address] [id number] Kat Arevalo PhD Ph:[phone] Performed By: #### 4 [id number], [id number] #### [facility] (DEFAULT) [address] [place] [address] QuantiFERON Incubation LC Incubation performed. [facility] Comment on above: Result Comment: Perf ormed At: [address] [id number] Kat Arevalo PhD Ph:[phone] Performed By: #### 4 [id number], [id number] #### [facility] (DEFAULT) [address] [place] [address] HBSab Qnt LCon 03-05-2020 Hep B Surf Ab Quant LC 145.6 mIU/mL Immunity>9.9 [facility] Comment on above: Result Comment: Stat us of Immunity Anti-HBs Level Inconsistent with Immunity 0.0 - 9.9 Consistent with Immunity >9.9 Performed At: [address] [id number] Kat Arevalo PhD Ph:[phone] Performed By: #### 1 [id number], [id number] #### [facility] (DEFAULT) [address] [place] [address] Measles/Mumps/Rubella Immuni ty LCon 03-05-2020 Mumps Abs, IgG LC 69.5 AU/mL Immune >10.9 [facility] Comment on above: Result Comment: Nega tive <9.0 Equivocal 9.0 - 10.9 Positive >10.9 A positive result generally indicates past exposure to Mumps virus or previous vaccination. Performed At: [address] [id number] Kat Arevalo PhD Ph:[phone] Performed By: #### 1 [id number], [id number] #### [facility] (DEFAULT) [address] [place] [address] Rubella Antibodies, IgG LC 1.75 index Immune >0.99 [facility] Comment on above: Result Comment: Non- immune <0.90 Equivocal 0.90 - 0.99 Immune >0.99 Performed By: #### 1 [id number], [id number] #### [facility] (DEFAULT) [address] [place] [address] Rubeola Ab, IgG, EIA LC >300.0 Immune >16.4 [facility] Comment on above: Result Comment: Nega tive <13.5 Equivocal 13.5 - 16.4 Positive >16.4 Presence of antibodies to Rubeola is presumptive evidence of immunity except when acute infection is suspected. Performed By: #### 1 [id number], [id number] #### [facility] (DEFAULT) [address] [place] [address] Nicotine Metabolite, Urine L Con 03-05-2020 Cotinine LC Negative Xcxthr=[id number] [facility] Comment on above: Result Comment: Perf ormed At: [facility] [place] [address] [facility] [place], [place] [id number] Jose Schwartz PhD Ph:[phone] Performed By: #### 1 [id number] #### [facility] (DEFAULT) [address] [place] [address] Encounters Encounter Date Encounter Type Care Provider Facility Start: 08-22-2023 End: 08-22-2023 ambulatory JASIEL RICHARD Not Available Start: 07-04-2023 End: 07-04-2023 ambulatory JASIEL RICHARD Not Available Start: 08-21-2022 End: 08-21-[address] DOCTOR MERCADO Facility: Start: 08-08-2021 End: 08-09-2021 ambulatory SHANTELLE DEAN [facility] Start: 12-21-2020 End: 12-22-2020 ambulatory JIMMY MEEHAN [facility] Start: 12-21-2020 End: 12-21-2020 Subsequent hospital visit by physician Shantelle Dean PA-C Work Phone: [facility] Start: 03-18-2020 End: 03-18-2020 Subsequent hospital visit by physician Shantelle [place] [facility] Procedures Date Procedure Procedure Detail Performing Clinician Start: 12-21-2020 Antibody rubella Ebony Meehan MD Work Phone: Plan of Treatment Date Care Activity Detail Author Start: 02-26-2027 DTaP/Tdap/Td vaccine (7 - Td) DTaP/Tdap/Td vaccine (7 - Td) [place], [place] Start: 03-18-2023 Screening for malign ant neoplasm of cervix Cervical cancer screen [facility] Phone: Start: 06-12-2021 Screening for malign ant neoplasm of cervix Cervical cancer screen [place], [place] Start: 03-30-2021 Influenza vaccination [facility] Start: 03-30-2020 Influenza vaccination Flu vaccine (# 1) [place] Start: 06-12-2019 Screening for Chlamy flaco trachomatis Chlamydia screen [place], [place] Start: 09-13-2011 Hepatitis A vaccine (2 of 2 - 2-dose series) Hepatitis A vaccine (2 of 2 - 2-dose series) [place] Start: 2007 COVID-19 Vaccine (1) COVID-19 Vaccin e (1) [facility] Phone: Start: 1995 Hepatitis C screening Hepatitis C sc reen [facility] Phone: End: 12-21-2020 Mumps Antibody, IgG Mumps Antibody, IgG Lab Routine Once for 1 Occurrences starting 12/21/2020 until 12/21/2020 [facility] Phone: Comment on above: Once for 1 Occurrenc es starting 12/21/2020 until 12/21/2020 Mumps Antibody, IgG Mumps Antibo dy, IgG Lab Routine 12/21/2020 4:27 PM EDT [facility] Phone: End: 12-21-2020 Quantiferon TB Gold Quantiferon TB Gold Microbiology Routine Once for 1 Occurrences starting 12/21/2020 until 12/21/2020 [facility] Phone: Comment on above: Once for 1 Occurrenc es starting 12/21/2020 until 12/21/2020 Quantiferon TB Gold Quantiferon TB Gold Microbiology Routine 12/21/2020 4:27 PM EDT [facility] Phone: End: 12-21-2020 Rubeola Antibody, IgG Rubeola Antibody, IgG Lab Routine Once for 1 Occurrences starting 12/21/2020 until 12/21/2020 [facility] Phone: Comment on above: Once for 1 Occurrenc es starting 12/21/2020 until 12/21/2020 Rubeola Antibody, IgG Rubeola An tibody, IgG Lab Routine 12/21/2020 4:27 PM EDT [facility] Phone: End: 12-21-2020 Varicella Zoster Antibody, IgG Varicella Zoster Antibody, IgG Lab Routine Once for 1 Occurrences starting 12/21/2020 until 12/21/2020 [facility] Phone: Comment on above: Once for 1 Occurrenc es starting 12/21/2020 until 12/21/2020 Varicella Zoster Antibody, IgG Varicella Zoster Antibody, IgG Lab Routine 12/21/2020 4:27 PM EDT [facility] Phone: Immunizations Immunization Date Immunization Notes Care Provider Durga hutchins 03-09-2020 tuberculin skin test ; purified protein derivative solution, intradermal [facility], [place] 04-28-2019 influenza, injectabl e, quadrivalent, preservative free [facility] 06-12-2018 influenza, injectabl e, quadrivalent, preservative free [facility], [place] 05-01-2018 tuberculin skin test ; purified protein derivative solution, intradermal [facility], [place] 09-12-2017 hepatitis B vaccine, adult dosage [facility], [place] 04-13-2017 Human Papillomavirus 9-valent vaccine [place], [place] 04-10-2017 hepatitis B vaccine, adult dosage [facility], [place] 03-07-2017 hepatitis B vaccine, adult dosage [facility], [place] 03-07-2017 meningococcal polysaccharide (groups A, C, Y and W-135) diphtheria toxoid conjugate vaccine (MCV4P) [place], [place] 03-07-2017 tuberculin skin test ; purified protein derivative solution, intradermal [place] 02-26-2017 tetanus toxoid, redu juve diphtheria toxoid, and acellular pertussis vaccine, adsorbed [place] 02-26-2017 tuberculin skin test ; purified protein derivative solution, intradermal [place] 08-13-2014 Human Papillomavirus 9-valent vaccine [place] 04-01-2014 meningococcal polysaccharide (groups A, C, Y and W-135) diphtheria toxoid conjugate vaccine (MCV4P) [place] 02-10-2014 Human Papillomavirus 9-valent vaccine [place] Payers Date Payer Category Payer Unknown [id number] 2021 Unknown [id number] 2016 Private Health Insurance SHIV FIERRO [id number] 2016-Present [phone] [address] [place] [address] [id number] 1995 Unknown [id number] 1995 Unknown [id number] 1995 Unknown [id number] 1995 Unknown [id number] 1959 Unknown [id number] Social History Date Type Detail Facility Start: 03-18-2020 Tobacco smoking status NHIS Never sm oker [facility] [employer] Start: 03-18-2020 Tobacco use and exposure Never used [facility] [employer], [place] Start: 02-05-2017 Alcohol Comment rarely Corrine Webster [place], [place] Sex Assigned At Not on file 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 ACP-Advance Directive ACP-Power of [employer] Additional Source Comments INFORMATION SOURCE (unrecogn ized section and content) DATE CREATED AUTHOR 03/12/2020 [facility] DATE CREATED AUTHOR AUTHOR'S ORGANIZ ATION 08/20/2021 [facility] DATE CREATED AUTHOR AUTHOR'S ORGANIZ ATION 02/18/2022 [facility] DATE CREATED AUTHOR AUTHOR'S ORGANIZ ATION 08/25/2022 [facility] DATE CREATED AUTHOR AUTHOR'S ORGANIZ ATION 08/23/2023 [facility] FOR RECORDS PERTAINING TO PATIENTS WHO [...] BE BASED ON THE PRIMARY CLINICAL RECORDS. [employer] provides no warranty or guarantee of the accuracy or completeness of information in this document.
== END 2024-01-17 13:28 | disposition home or self-care (01) ==
LOC: NOMS 13:27
PROVIDERS: Visit Provider Obstetrics & Gynecology
DX: Z34.91 Encounter for supervision of normal pregnancy, unspecified, first trimester (principal); Z3A.12 12 weeks gestation of pregnancy
CPT/HCPCS: 76817

== ENCOUNTER 2024-01-17 14:36 | Outpatient (OUT) | payer OTHER, SELFPAY ==
[2024-01-17 15:04] LABS: Basophils Percent Auto 0.2 % (0.2-2.0); Eosinophils Absolute Auto 0.3 10^3/uL (0.0-0.7); Eosinophils Percent Auto 2.5 % (0.9-7.0); Hematocrit 39.1 % (36.0-48.0); Immature Granulocytes Abs Auto 0.03 10^3/uL (0.00-0.03); Immature Granulocytes Pct Auto 0.3 % (0.0-0.5); Lymphocytes Absolute Auto 2.3 10^3/uL (1.2-3.8); Mean Corpuscular HGB Conc 35.8 g/dL (29.9-35.2); Mean Corpuscular Hemoglobin 31.5 pg (26.7-34.0); Mean Corpuscular Volume 88.1 fL (81.0-99.0); Monocytes Absolute Auto 0.6 10^3/uL (0.3-0.8); Monocytes Percent Auto 6.2 % (1.7-12.0); Neutrophils Absolute Auto 7.1 10^3/uL (1.4-6.5); Neutrophils Percent Auto 68.8 % (43.0-75.0); Platelet Count 259 10^3/uL (150-450); Red Blood Count 4.44 10^6/uL (4.20-5.40); White Blood Count 10.4 10^3/uL (4.0-11.0)
[2024-01-17 15:36] LABS: Estimated Average Glucose 97 mg/dL
[2024-01-18 06:09] LABS: HBsAg Screen Negative (Negative); HCV Ab Non Reactive (Non Reactive); HIV Ab/p24 Ag Screen Non Reactive (Non Reactive)
[2024-01-18 11:14] LABS: Rapid Plasma Reagin, Quant Non Reactive titer (NonRea<1:1)
[2024-01-18 14:10] LABS: Rubella Antibodies, IgG 1.18 index (Immune >0.99)
== END 2024-01-17 14:37 | disposition home or self-care (01) ==
LOC: LAB 14:37
PROVIDERS: Visit Provider Obstetrics & Gynecology
DX: Z34.91 Encounter for supervision of normal pregnancy, unspecified, first trimester (principal); Z36.0 Encounter for antenatal screening for chromosomal anomalies; Z3A.12 12 weeks gestation of pregnancy
CPT/HCPCS: 36415; 76817; 83036; 85025; 86592; 86762; 86803; 86850; 86900; 86901; 87086; 87340; 87389

== ENCOUNTER 2024-02-14 14:14 | Outpatient (OUT) | payer OTHER, SELFPAY ==
[2024-02-14 15:58] LABS: Glucose 1 Hour 83 mg/dL (<130)
[2024-02-18 17:07] LABS: AFP Value 21.3 ng/mL (.); Gest. Age on Collection Date 16.4 weeks (.); Gestat. Age Based On As provided (.); Insulin Dep Diabetes No (.); Maternal Age At EDD 28.7 yr (.); OSBR Risk 1 IN 10000 (.); Results Report (.)
== END 2024-02-14 14:15 | disposition home or self-care (01) ==
PROVIDERS: Visit Provider Obstetrics & Gynecology
DX: Z34.92 Encounter for supervision of normal pregnancy, unspecified, second trimester (principal); Z36.9 Encounter for antenatal screening, unspecified
CPT/HCPCS: 36415; 82105; 82950

== ENCOUNTER 2024-03-13 08:35 | Outpatient (OUT) | payer OTHER, SELFPAY ==
--- OUTSIDE RECORDS SUMMARY | 2024-03-13 08:38 | XMS_ITS | CCD ---
Author Organization [facility] Care Team Providers Care Service Or Work Dispatcher Name Role Phone Shantelle Dean Primary Care Provider [phone] JIMMY MEEHAN Referring Unavailable SHANTELLE DEAN Primary Care Unavailable SHANTELLE DEAN Referring Unavailable SHANTELLE DEAN Primary Care Unavailable MISHaroon, DR BELLAMY Primary Care Unavailable DR JASIEL RAMOS Attending Unavailable DR JASIEL RAMOS Consulting Unavailable DR JASIEL RAMOS Admitting Unavailable JASIEL RAMOS Attending Unavailable JASIEL RAMOS Attending Unavailable JASIEL RAMOS [...] 21 to 29on 08-25-2022 . . Normal [facility] Comment on above: Performed By: #### 4 [id number] #### [facility] [address] [address] [address] Matias Shukla Age Gdln ACOG Testing [facility] Comment on above: Performed By: #### 4 [id number] #### [facility] [address] [address] [address] Matias Shukla DIAGNOSIS: Comment [facility] Comment on above: Result Comment: NEGA TIVE FOR INTRAEPITHELIAL LESION OR MALIGNANCY. Performed By: #### 4 [id number] #### [facility] [address] [address] [address] Matias Shukla Methodology: Comment [facility] Comment on above: Result Comment: This liquid based ThinPrep(R) pap test was screened with the use of an image guided system. Performed By: #### 4 [id number] #### [facility] [address] [place] [address] Dr. Matias Shukla Note: Comment [facility] Comment on above: Result Comment: The Pap smear is a screening test designed to aid in the detection of premalignant and malignant conditions of the uterine cervix. It is not a diagnostic procedure and should not be used as the sole means of detecting cervical cancer. Both false-positive and false-negative reports do occur. . Performed By: #### 4 [id number] #### [facility] [address] [address] [address] Matias Shukla Performed by: Comment Normal [facility] Comment on above: Result Comment: Monika Prieto, Internal Medicine Veterinary Technician (ASCP) Performed By: #### 4 [id number] #### [facility] [address] [place] [address] Dr. Matias Shukla Reflex Criteria: Comment Normal [facility] Comment on above: Result Comment: The HPV DNA reflex criteria were not met with this specimen result therefore, no HPV testing was performed. . Performed By: #### 4 [id number] #### [facility] [address] [address] [address] Matias Shukla Specimen adequacy: Comment Normal [facility] Comment on above: Result Comment: Sati sfactory for evaluation. Endocervical and/or squamous metaplastic cells (endocervical component) are present. Performed By: #### 4 [id number] #### [facility] [address] [address] [address] Matias Shukla MUMPS IGG BLDon 02-07-2022 MUMPS IGG 1.14 Normal [facility] Comment on above: Result Comment: RAN IN TRIPLICATE NORMAL RANGES: < OR = 0.9O NEGATIVE ; NO DETECTABLE IgG ANTIBODY TO MUMPS 0.91 - 1.09 EQUIVOCAL; REPEAT TESTING SUGGESTED > OR = 1.10 POSITIVE ; INDICATES PRESENCE OF DETECTABLE IgG ANTIBODY TO MUMPS Performed By: #### 1 0055, 02529, [id number], 22815 #### [facility] [address] [place] [address], [facility] RUBELLAon 02-07-2022 RUBELLA 1.73 Normal The [facility] Comment on above: Result Comment: NORM AL RANGES: < OR = 0.9O NEGATIVE ; NO DETECTABLE IgG ANTIBODY TO RUBELLA 0.91 - 1.09 EQUIVOCAL; REPEAT TESTING SUGGESTED > OR = 1.10 POSITIVE ; INDICATES PRESENCE OF DETECTABLE IgG ANTIBODY TO RUBELLA VIRUS Performed By: #### 1 0055, 85690, 11996, 97461 #### [facility] [address] [place] [address], [place] RUBEOLA MEASLES IGGon 2021 RUBEO IGG 4.62 Normal [facility] Comment on above: Result Comment: NORM AL RANGES: < OR = 0.9O NEGATIVE ; NO DETECTABLE IgG ANTIBODY TO RUBEOLA 0.91 - 1.09 EQUIVOCAL; REPEAT TESTING SUGGESTED > OR = 1.10 POSITIVE ; INDICATES PRESENCE OF DETECTABLE IgG ANTIBODY TO RUBEOLA Performed By: #### 1 0055, 99098, 30003, 20477 #### [facility] [address] [place] [address], [facility] TB QUANTIFERON PLUSon 2021 MITOGEN MINUS NIL 8.15 IU/mL Normal The [facility] Comment on above: Performed By: #### 3 1592 #### [facility] [address] [facility] [place] [address], [facility] NIL 0.03 IU/mL Normal [facility] Comment on above: Performed By: #### 3 1592 #### [facility] [address] [place] [address], [facility] TB QUANTIFERON Negative Normal NEGATIVE The [facility] Comment on above: Result Comment: Eric tiferon TB Gold Interpretation (IU/mL): NEGATIVE: M. tuberculosis infection not likely. Nil: <=8.0 TB1 Antigen minus Nil (SB7GE-RMB): <0.35 OR >=0.35; and <25% of Nil value. TB2 Antigen minus Nil (JF8GB-PJN): <0.35 OR >=0.35; and <25% of Nil [...] (https://www.cdc.gov/tb/publications/guidlines/default.htm Performed By: #### 3 1592 #### [facility] [address] [facility] [place] [address], [facility] TB1 AG 0.03 IU/mL Normal [facility] Comment on above: Performed By: #### 3 1592 #### [facility] [address] [place] [address], [facility] TB1 AG MINUS NIL 0.00 IU/mL Normal [facility] Comment on above: Performed By: #### 3 1592 #### [facility] [address] TB2 AG 0.04 IU/mL Normal [facility] Comment on above: Performed By: #### 3 1592 #### [facility] [address] TB2 AG MINUS NIL 0.01 IU/mL Normal [facility] Comment on above: Performed By: #### 3 1592 #### [facility] [address] VARICELLA ZOSTER IGGon 02-07 VARICELLA IGG 2.60 Normal [facility] Comment on above: Result Comment: NORM AL RANGES: < OR = 0.9O NEGATIVE ; NO DETECTABLE IgG ANTIBODY TO VARICELLA-ZOSTER VIRUS 0.91 - 1.09 EQUIVOCAL; REPEAT TESTING SUGGESTED > OR = 1.10 POSITIVE ; INDICATES PRESENCE OF DETECTABLE IgG ANTIBODY TO VARICELLA-ZOSTER VIRUS Performed By: #### 1 0055, 35797, 23397, 33395 #### [facility] [address] HPV DNA High Riskon 08-19-19 22 HPV Interp Normal [facility] Comment on [...] other forensic purposes. Performed By: #### [facility] #### [facility] [address] [place] [address] Section Chief: Rickey Watson MD HPV Type 16 Not detected Normal [facility] Comment on above: Performed By: #### H PVH #### [address] [address] Section Chief: Rickey Watson MD HPV Type 18 Not detected Normal [facility] Comment on above: Performed By: #### H PVH #### [address] [address] Section Chief: Rickey Watson MD Other High Risk HPV Not detected [facility] Comment on above: Performed By: #### H PVH #### [address] [address] Section Chief: Rickey Watson MD HPV DNA High Riskon 08-18-19 Source .GENITAL - NOT SPECIFIED Normal [facility] Comment on above: Performed By: #### H PVH #### [address] [address] Section Chief: Rickey Watson MD HPV Sample .THIN PREP Normal [facility] Comment on above: Performed By: #### H PVH #### [address] [address] Section Chief: Rickey Watson MD Chlamydia/GC DNA, TPon 08-10 Chlamydia Probe, TP Negative Normal NEG [facility] Comment on [...] target. Performed By: #### C YTCGP #### [address] [address] Section Chief: Rickey Watson MD Gonorrhea Probe, TP Negative Normal NEG [facility] Comment on [...] target. Performed By: #### C YTCGP #### [address] [address] Section Chief: Rickey Watson MD Cytologyon 08-08-2021 Cytology (NOTE) INTERPRETATION Cervical material, (ThinPrep vial, Imaging-assisted review): Specimen Adequacy: Satisfactory for evaluation. - Endocervical/transform ation zone component present. - Scant cellularity. Descriptive Diagnosis: Atypical squamous cells of undetermined significance (ASC-US). Internal Medicine Veterinary Technician: AMANDA Michaels M.D. Electronically Signed Out rdd/08/18/2021 Amendments Originally Reported As: Procedure/Addendum Source: Clinical History LMP: Patient Name: Med Rec: Path Number: Fax: Normal [facility] Comment on above: Performed By: #### P PPVP #### [address] [address] Section Chief: Rikcey Watson MD QuantiFERON TBon 12-24-2020 Quanti Binu minus NIL 8.10 IU/mL [facility] Comment on above: Performed By: #### R UBI, LUIZ, MARITZA, VZI #### [facility] [employer] [employer] [address] [place] [address] Section Chief: Rickey Watson MD #### AQF #### [address] [address] Section Chief: Mark Grossman MD Quanti TB Gold Plus Negative Normal Negative [facility] Comment on [...] Mycobacterium tuberculosis Infection --- [place], 2010 (http://www.cdc.gov/mmwr/preview/mmwrhtml/wr5147k5.htm), for more information concerning test performance in low-prevalence populations and use in occupational screening. Performed By: #### R LUIZ MCKEON MUI, VZI #### [employer] [address] [place], [place] [id number] Section Chief: Rickey Watson MD #### AQF #### [employer] [facility] [address] [place] [address] Section Chief: Mark Grossman MD Quanti TB1 minus NIL 0.00 IU/mL Normal 0.00-0.34 [facility] Comment on above: Performed By: #### R LUIZ MCKEON MUI, VZI #### [employer] [address] [place] [address] Section Chief: Rickey Watson MD #### AQF #### [employer] [address] [place] [address] Section Chief: Mark Grossman MD Quanti TB2 minus NIL 0.01 IU/mL Normal 0.00-0.34 [facility] Comment on above: Performed By: #### R UBI, LUIZ, MARITZA, VZI #### [address] [address] Section Chief: Rickey Watson MD #### AQF #### [address] [id number] Section Chief: Mark Grossman MD QuantiFERON NIL 0.01 IU/mL Normal [facility] Comment on above: Result Comment: (NOT E) Performed By: [employer] [address] [place] [address] Grey Tender: Carolyn Wei MD Performed By: #### R UBI, LUIZ, MARITZA, VZI #### [place] [address] Section Chief: Rickey Watson MD #### AQF #### [address] [id number] Section Chief: Mark Grossman MD Measles (Rubeola) Imon 12-22 Measles (Rubeola) Im 3.68 Normal >1.09 [facility] Comment on above: Result Comment: Interpretation: IMMUNE Reference Range: <0.91 Not Immune 0.91-1.09 Equivocal >1.09 Immune Performed By: #### R UBI, LUIZ, MARITZA, VZI #### [address] [address] Section Chief: Rickye Watson MD #### AQF #### [address] [id number] Section Chief: Mark Grossman MD Mumps,Immun,Abon 12-22-2020 Mumps,Immun,Ab 1.16 Normal >1.09 [facility] Comment on above: Result Comment: Interpretation: IMMUNE Reference Range: <0.91 Not Immune 0.91-1.09 Equivocal >1.09 Immune Performed By: #### R UBI, LUIZ, MARITZA, VZI #### [address] [id number] Section Chief: Rickey Watson MD #### AQF #### [address] [id number] Section Chief: Mark Grossman MD VZ Immunityon 12-22-2020 VZ Immunity 2.24 Normal >1.09 [facility] Comment on above: Result Comment: Interpretation: IMMUNE Reference Range: <0.91 Not Immune 0.91-1.09 Equivocal >1.09 Immune Performed By: #### R UBI, LUIZ, MARITZA, VZI #### [address] [id number] Section Chief: Rickey Watson MD #### AQF #### [address] [address] Section Chief: Mark Grossman MD Rubella Ab, IgGon 12-21-2020 Rubella Ab, IgG 16.2 IU/mL Normal [facility] Comment on above: Result Comment: REFERENCE RANGE: <5.0 NON-REACTIVE (non-immune) 5.0 TO 9.9 EQUIVOCAL >=10.0 REACTIVE (immune) Performed By: #### R UBI, LUIZ, MARITZA, VZI #### [address] [id number] Section Chief: Rickey Watson MD #### AQF #### [address] [address] Section Chief: Mark Grossman MD Rubella antibody, IgGOrdered By: Jimmy Meehan on 12-21-2020 Rubella virus IgG Ql (S) 16.2 IU/mL [facility] Work Phone: Comment on above: REFERENCE RANGE: <5.0 NON-REACTIVE (non-immune) 5.0 TO 9.9 EQUIVOCAL >=10.0 REACTIVE (immune) [employer] Work Phone: Lab - Toxicology Resultson 0 03-11-2020 Lab - Toxicology Results [id number]#1.0 [id number] Normal [facility] QuantiFERON TB Gold (In Tube ) LCon 03-08-2020 QuantiFERON Criteria LC Comment [facility] Comment on above: Result Comment: The QuantiFERON-TB Gold Plus result is determined by subtracting the Nil value from either TB antigen (Ag) tube. The mitogen tube serves as a control for the test. Performed By: #### 4 [id number], [id number] #### [facility] (DEFAULT) [address] [place] [address] QuantiFERON M. tuberculosis1 Ag Value LC 0.09 IU/mL [facility] Comment on above: Performed By: #### 4 [id number], [id number] #### [facility] (DEFAULT) [address] [place] [address] QuantiFERON M. tuberculosis2 Ag Value LC 0.08 IU/mL [facility] Comment on above: Performed By: #### 4 [id number], [id number] #### [facility] (DEFAULT) [address] [place] [address] QuantiFERON Mitogen Value LC >10.00 [facility] Comment on above: Result Comment: Perf ormed At: [facility] [id number] Kat Arevalo PhD Ph:[phone] Performed By: #### 4 [id number], [id number] #### [facility] (DEFAULT) [address] [place] [address] QuantiFERON Nil Value LC 0.01 IU/mL [facility] Comment on above: Performed By: #### 4 [id number], [id number] #### [facility] (DEFAULT) [address] [place] [address] QuantiFERON-TB Gold Plus LCo n 03-08-2020 QuantiFERON-TB Gold Plus LC Negative Negative [facility] Comment on above: Result Comment: Perf ormed At: [address] [id number] Kat Arevalo PhD Ph:[phone] Performed By: #### 4 [id number], [id number] #### [facility] (DEFAULT) [address] [place] [address] QuantiFERON Incubation LC Incubation performed. [facility] Comment on above: Result Comment: Perf ormed At: [address] [id number] Kat Arevalo PhD Ph:[phone] Performed By: #### 4 [id number], [id number] #### [facility] (DEFAULT) [address] [place] [address] HBSab Qnt on 03-05-2020 Hep B Surf Ab Quant LC 145.6 mIU/mL Immunity>9.9 [facility] Comment on above: Result Comment: Stat us of Immunity Anti-HBs Level Inconsistent with Immunity 0.0 - 9.9 Consistent with Immunity >9.9 Performed At: [address] [id number] Kat Arevalo PhD Ph:[phone] Performed By: #### 1 [id number], [id number] #### [facility] (DEFAULT) [address] [place] [address] Measles/Mumps/Rubella Immuni ty LCon 03-05-2020 Mumps Abs, IgG LC 69.5 AU/mL Immune >10.9 [facility] Comment on above: Result Comment: Nega tive <9.0 Equivocal 9.0 - 10.9 Positive >10.9 A positive result generally indicates past exposure to Mumps virus or previous vaccination. Performed At: [address] [id number] Kat Arevalo PhD Ph:[phone] Performed By: #### 1 [id number], [id number] #### [facility] (DEFAULT) [address] [place] [address] Rubella Antibodies, IgG LC 1.75 index Immune >0.99 [facility] Comment on above: Result Comment: Non- immune <0.90 Equivocal 0.90 - 0.99 Immune >0.99 Performed By: #### 1 [id number], [id number] #### [facility] (DEFAULT) [address] [place] [address] Rubeola Ab, IgG, EIA LC >300.0 Immune >16.4 [facility] Comment on above: Result Comment: Nega tive <13.5 Equivocal 13.5 - 16.4 Positive >16.4 Presence of antibodies to Rubeola is presumptive evidence of immunity except when acute infection is suspected. Performed By: #### 1 [id number], [id number] #### [facility] (DEFAULT) [address] [place] [address] Nicotine Metabolite, Urine L Con 03-05-2020 Cotinine LC Negative Zejqmh=[id number] [facility] Comment on above: Result Comment: Perf ormed At: [facility] [address] [place], [place] [id number] Jose Schwartz PhD Ph:[phone] Performed By: #### 1 [id number] #### [facility] (DEFAULT) [address] [place] [address] Encounters Encounter Date Encounter Type Care Provider Facility Start: 02-13-2024 End: 02-13-2024 ambulatory JASIEL RICHARD Not Available Start: 01-17-2024 End: 01-17-2024 ambulatory JASIEL RICHARD Not Available Start: 08-22-2023 End: 08-22-2023 ambulatory JASIEL RICHARD Not Available Start: 07-04-2023 End: 07-04-2023 ambulatory JASIEL RICHARD Not Available Start: 08-21-2022 End: 08-21-[address] DOCTOR MERCADO Facility: Start: 08-08-2021 End: 08-09-2021 ambulatory SHANTELLE DEAN [facility] Start: 12-21-2020 End: 12-22-2020 ambulatory JIMMY MEEHAN [facility] Start: 12-21-2020 End: 12-21-2020 Subsequent hospital visit by physician Shantelle Dean PA-C Work Phone: [facility] Start: 03-18-2020 End: 03-18-2020 Subsequent hospital visit by physician Shantelle [place] [facility] Procedures Date Procedure Procedure Detail Performing Clinician Start: 12-21-2020 Antibody rubella Ebony Meehan MD Work Phone: Plan of Treatment Date Care Activity Detail Author Start: 02-26-2027 DTaP/Tdap/Td vaccine (7 - Td) DTaP/Tdap/Td vaccine (7 - Td) [place] Start: 03-18-2023 Screening for malign ant neoplasm of cervix Cervical cancer screen [facility] Phone: Start: 06-12-2021 Screening for malign ant neoplasm of cervix Cervical cancer screen [place] Start: 03-30-2021 Influenza vaccination Flu vacc ine (Season Ended) [facility] Phone: Start: 03-30-2020 Influenza vaccination Flu vaccine (# 1) [place] Start: 06-12-2019 Screening for Chlamy flaco trachomatis Chlamydia screen [place] Start: 09-13-2011 Hepatitis A vaccine (2 of 2 - 2-dose series) Hepatitis A vaccine (2 of 2 - 2-dose series) [place] Start: 2007 COVID-19 Vaccine (1) COVID-19 Vaccin e (1) [facility] Phone: Start: 1995 Hepatitis C screening Hepatitis C sc reen [facility] Phone: End: 12-21-2020 Mumps Antibody, IgG Mumps Antibody, IgG Lab Routine Once for 1 Occurrences starting 12/21/2020 until 12/21/2020 [employer] Phone: Comment on above: Once for 1 Occurrenc es starting 12/21/2020 until 12/21/2020 Mumps Antibody, IgG Mumps Antibo dy, IgG Lab Routine 12/21/2020 4:27 PM EDT [employer] Phone: End: 12-21-2020 Quantiferon TB Gold Quantiferon TB Gold Microbiology Routine Once for 1 Occurrences starting 12/21/2020 until 12/21/2020 [employer] Phone: Comment on above: Once for 1 Occurrenc es starting 12/21/2020 until 12/21/2020 Quantiferon TB Gold Quantiferon TB Gold Microbiology Routine 12/21/2020 4:27 PM EDT [employer] Phone: End: 12-21-2020 Rubeola Antibody, IgG Rubeola Antibody, IgG Lab Routine Once for 1 Occurrences starting 12/21/2020 until 12/21/2020 [employer] Phone: Comment on above: Once for 1 Occurrenc es starting 12/21/2020 until 12/21/2020 Rubeola Antibody, IgG Rubeola An tibody, IgG Lab Routine 12/21/2020 4:27 PM EDT [employer] Phone: End: 12-21-2020 Varicella Zoster Antibody, IgG Varicella Zoster Antibody, IgG Lab Routine Once for 1 Occurrences starting 12/21/2020 until 12/21/2020 [employer] Phone: Comment on above: Once for 1 Occurrenc es starting 12/21/2020 until 12/21/2020 Varicella Zoster Antibody, IgG Varicella Zoster Antibody, IgG Lab Routine 12/21/2020 4:27 PM EDT [employer] Phone: Immunizations Immunization Date Immunization Notes Care Provider Durga hutchins 03-09-2020 tuberculin skin test ; purified protein derivative solution, intradermal [facility], [place] 04-28-2019 influenza, injectabl e, quadrivalent, preservative free [facility], [place] 06-12-2018 influenza, injectabl e, quadrivalent, preservative free [facility], [place] 05-01-2018 tuberculin skin test ; purified protein derivative solution, intradermal [facility], [place] 09-12-2017 hepatitis B vaccine, adult dosage [facility] 04-13-2017 Human Papillomavirus 9-valent vaccine [facility] 04-10-2017 hepatitis B vaccine, adult dosage [facility] 03-07-2017 hepatitis B vaccine, adult dosage [facility] 03-07-2017 meningococcal polysaccharide (groups A, C, Y and W-135) diphtheria toxoid conjugate vaccine (MCV4P) [place], [place] 03-07-2017 tuberculin skin test ; purified protein derivative solution, intradermal [facility], [place] 02-26-2017 tetanus toxoid, redu juve diphtheria toxoid, and acellular pertussis vaccine, adsorbed [facility], [place] 02-26-2017 tuberculin skin test ; purified protein derivative solution, intradermal [facility], [place] 08-13-2014 Human Papillomavirus 9-valent vaccine [place], [place] 04-01-2014 meningococcal polysaccharide (groups A, C, Y and W-135) diphtheria toxoid conjugate vaccine (MCV4P) [place] 02-10-2014 Human Papillomavirus 9-valent vaccine [place] Payers Date Payer Category Payer Unknown [id number] 2021 Unknown [id number] 2016 Private Health Insurance SHIV FIERRO [id number] 2016-Present [phone] [facility] [id number] [place] [address] [id number] 1995 Unknown [id number] 75 1995 Unknown [id number] 93 1995 Unknown [id number] 259 1995 Unknown [id number] 259 1995 Unknown [id number] 259 1995 Unknown [id number] 259 1959 Unknown [id number] Social History Date Type Detail Facility Start: 03-18-2020 Tobacco smoking status NHIS Never sm oker [place] Start: 03-18-2020 Tobacco use and exposure Never used [place] Start: 02-05-2017 Alcohol Comment rarely [place] Sex Assigned At Not on file [place] Start: 1995 Sex Assigned At Female Anabel [employer] Work Phone: Summary Purpose Family History No Family History Records FoundNo Family History Records FoundNo Family History Records FoundNo Family History Records FoundNo Family History Records Found Advance Directives No Advanced Directives Records FoundDocuments on File Type Date Recorded Patient Resident Surgeon Expl anation 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 Additional Source Comments INFORMATION SOURCE (unrecogn ized section and content) DATE CREATED AUTHOR 03/12/2020 [facility] DATE CREATED AUTHOR AUTHOR'S ORGANIZ ATION 08/20/2021 [facility] DATE CREATED AUTHOR AUTHOR'S ORGANIZ ATION 02/18/2022 [facility] DATE CREATED AUTHOR AUTHOR'S ORGANIZ ATION 08/25/2022 [facility] DATE CREATED AUTHOR AUTHOR'S ORGANIZ ATION 02/17/2024 [facility] d[facility] Specialists [facility] FOR RECORDS PERTAINING TO PATIENTS WHO [...] BE BASED ON THE PRIMARY CLINICAL RECORDS. [facility] provides no warranty or guarantee of the accuracy or completeness of information in this document.
--- NOTE | 2024-03-13 08:39 | US_ITS ---
[address] [address] Patient Name: ZAKIA SEARS MRN: [id number] date: 1995 Sex: F Assigned Patient Location: [facility] Current Patient Location: [facility] Accession/Order Number: [id number] Exam Date: 03/13/2024 08:39 Report Date: 03/13/2024 10:09 At the request of: JASIEL RAMOS Procedure: US OB cervical length EXAMINATION: US OB anatomy, US OB cervical length HISTORY: ANATOMY COMPARISON: Ultrasound OB transvaginal 01/17/2024 TECHNIQUE: Transabdominal sonographic examination was performed for obstetrical and evaluation. FINDINGS: Number: 1 Heart Rate: 137 bpm H.B. /min Amniotic Fluid Volume: Subjectively normal Placental Location: ANTERIOR with lower margin adjacent to or possibly covering the internal os. Cervix Length: 4.15 cm ; closed. ANATOMY: Normal Structures -cerebellum, choroid plexus, cisterna magna, lateral cerebral ventricles, orbits, midline falx, hard palate, stomach, kidneys, bladder, umbilical cord insertion into abdomen, cervical spine, thoracic spine, lumbar spine, sacral spine, right upper extremity, left upper extremity, right lower extremity, left lower extremity. SUBOPTIMALLY SEEN: Four-chamber heart and cardiac outflow tracts, three-vessel cord. ABNORMALITIES: None BIOMETRY: BPD: 4.14 cm; 18 weeks 4 days; < 3 % HC: 16.62 cm; 19 weeks 2 days; 3.80 % AC: 14.80 cm; 20 weeks 1 day; 27.60 % FL: 3.25 cm; 20 weeks 1 day; 26.80 % EFW:286.23 g; 17.10 % FL/AC: 21.96 FL/BPD: 78.50 HC/AC: 1.12 GESTATIONAL AGE: Age by EDC: 20 weeks 4 days Age by current US: 19 weeks 4 days VICTORINA by current US: 2024-08-03 VICTORINA by EDC: 2024-07-27 US/US OB cervical length IMPRESSION: 1. Single live intrauterine with growth detailed above. 2. Anterior placenta with lower margin near or possibly covering the internal os. This area is obscured due to position and uterine contraction at time of imaging. Follow-up recommended. 3. Suboptimal visualization of the four-chamber heart, cardiac outflow tracts, three-vessel cord due to position. Electronically authenticated by: MARIAM GARCIA Date: 03/13/2024 10:09
--- NOTE | 2024-03-13 08:39 | US_ITS ---
[address] [address] Patient Name: ZAKIA SEARS MRN: [id number] date: 1995 Sex: F Assigned Patient Location: [facility] Current Patient Location: [facility] Accession/Order Number: [id number] Exam Date: 03/13/2024 08:39 Report Date: 03/13/2024 10:09 At the request of: JASIEL RAMOS Procedure: US OB anatomy EXAMINATION: US OB anatomy, US OB cervical length HISTORY: ANATOMY COMPARISON: Ultrasound OB transvaginal 01/17/2024 TECHNIQUE: Transabdominal sonographic examination was performed for obstetrical and evaluation. FINDINGS: Number: 1 Heart Rate: 137 bpm H.B. /min Amniotic Fluid Volume: Subjectively normal Placental Location: ANTERIOR with lower margin adjacent to or possibly covering the internal os. Cervix Length: 4.15 cm ; closed. ANATOMY: Normal Structures -cerebellum, choroid plexus, cisterna magna, lateral cerebral ventricles, orbits, midline falx, hard palate, stomach, kidneys, bladder, umbilical cord insertion into abdomen, cervical spine, thoracic spine, lumbar spine, sacral spine, right upper extremity, left upper extremity, right lower extremity, left lower extremity. SUBOPTIMALLY SEEN: Four-chamber heart and cardiac outflow tracts, three-vessel cord. ABNORMALITIES: None BIOMETRY: BPD: 4.14 cm; 18 weeks 4 days; < 3 % HC: 16.62 cm; 19 weeks 2 days; 3.80 % AC: 14.80 cm; 20 weeks 1 day; 27.60 % FL: 3.25 cm; 20 weeks 1 day; 26.80 % EFW:286.23 g; 17.10 % FL/AC: 21.96 FL/BPD: 78.50 HC/AC: 1.12 GESTATIONAL AGE: Age by EDC: 20 weeks 4 days Age by current US: 19 weeks 4 days VICTORINA by current US: 2024-08-03 VICTORINA by EDC: 2024-07-27 US/US OB anatomy IMPRESSION: 1. Single live intrauterine with growth detailed above. 2. Anterior placenta with lower margin near or possibly covering the internal os. This area is obscured due to position and uterine contraction at time of imaging. Follow-up recommended. 3. Suboptimal visualization of the four-chamber heart, cardiac outflow tracts, three-vessel cord due to position. Electronically authenticated by: MARIAM GARCIA Date: 03/13/2024 10:09
== END 2024-03-13 08:36 | disposition home or self-care (01) ==
LOC: NOMS 08:36
PROVIDERS: Visit Provider Obstetrics & Gynecology
DX: Z36.89 Encounter for other specified antenatal screening (principal); Z3A.19 19 weeks gestation of pregnancy
CPT/HCPCS: 76805; 76817

== ENCOUNTER 2024-04-24 06:26 | Outpatient (OUT) | payer OTHER, SELFPAY ==
--- OUTSIDE RECORDS SUMMARY | 2024-04-24 06:30 | XMS_ITS | CCD ---
Author Organization [facility] Care Team Providers Care Bellstand Attendant Name Role Phone Shantelle Dean Primary Care Provider JIMMY MEEHAN Referring Unavailable SHANTELLE DEAN Primary Care Unavailable SHANTELLE DEAN Referring Unavailable SHANTELLE DEAN Primary Care Unavailable MISHaroon, DR BELLAMY Primary Care Unavailable RICHARD, DR WEATHERS Attending Unavailable RICHARD, DR WEATHERS Consulting Unavailable DR JASIEL RAMOS Admitting Unavailable JASIEL RAMOS Referring Unavailable JASIEL RAMOS Attending Unavailable JASIEL RAMOS Attending Unavailable JASIEL RAMOS Attending Unavailable CORRIE CANALES Attending Unavailable JASIEL RAMOS Attending Unavailable Medications [...] conditions (not mental disorders or infectious disease) (5 sources) Encounter for screening for malignant neoplasm of cervix; Translations: [Encounter for other specified screening] Onset: 08-21-2022 Episodic Past or Other Problems [...] 2: 21 to 29on 08-25-2022 . . [facility] Comment on above: Performed By: #### 4 [id number] #### [facility] [address] [address] [address] Matias Shukla Age Gdln ACOG Testing [facility] Comment on above: Performed By: #### 4 [id number] #### [facility] [address] [address] [address] Matias Shukla DIAGNOSIS: Comment [facility] Comment on above: Result Comment: NEGA TIVE FOR INTRAEPITHELIAL LESION OR MALIGNANCY. Performed By: #### 4 [id number] #### [facility] [address] [address] [address] Matias Shukla Methodology: Comment [facility] Comment on above: Result Comment: This liquid based ThinPrep(R) pap test was screened with the use of an image guided system. Performed By: #### 4 [id number] #### [facility] [address] [address] [address] Matias Shukla Note: Comment [facility] Comment on above: Result Comment: The Pap smear is a screening test designed to aid in the detection of premalignant and malignant conditions of the uterine cervix. It is not a diagnostic procedure and should not be used as the sole means of detecting cervical cancer. Both false-positive and false-negative reports do occur. . Performed By: #### 4 [id number] #### [facility] [address] [place] [address] Dr. Matias Shukla Performed by: Comment [facility] Comment on above: Result Comment: Monika Prieto, Pricer (ASCP) Performed By: #### 4 [id number] #### [facility] [address] [address] [address] Matias Shukla Reflex Criteria: Comment Normal [facility] Comment on above: Result Comment: The HPV DNA reflex criteria were not met with this specimen result therefore, no HPV testing was performed. . Performed By: #### 4 [id number] #### [facility] [address] [address] [address] Matias Shukla Specimen adequacy: Comment Normal [facility] Comment on above: Result Comment: Sati sfactory for evaluation. Endocervical and/or squamous metaplastic cells (endocervical component) are present. Performed By: #### 4 [id number] #### [facility] [address] [address] [address] Matias Shukla MUMPS IGG BLDon 02-07-2022 MUMPS IGG 1.14 Normal [facility] Comment on above: Result Comment: RAN IN TRIPLICATE NORMAL RANGES: < OR = 0.9O NEGATIVE ; NO DETECTABLE IgG ANTIBODY TO MUMPS 0.91 - 1.09 EQUIVOCAL; REPEAT TESTING SUGGESTED > OR = 1.10 POSITIVE ; INDICATES PRESENCE OF DETECTABLE IgG ANTIBODY TO MUMPS Performed By: #### 1 0055, [id number], 56855, [id number] #### [facility] [address] [place] [address], [facility] RUBELLAon 02-07-2022 RUBELLA 1.73 Normal [facility] Comment on above: Result Comment: NORM AL RANGES: < OR = 0.9O NEGATIVE ; NO DETECTABLE IgG ANTIBODY TO RUBELLA 0.91 - 1.09 EQUIVOCAL; REPEAT TESTING SUGGESTED > OR = 1.10 POSITIVE ; INDICATES PRESENCE OF DETECTABLE IgG ANTIBODY TO RUBELLA VIRUS Performed By: #### 1 0055, [id number], 98859, 12116 #### [facility] [address] [place] [address], [facility] RUBEOLA MEASLES IGGon 2021 RUBEO IGG 4.62 Normal [facility] Comment on above: Result Comment: NORM AL RANGES: < OR = 0.9O NEGATIVE ; NO DETECTABLE IgG ANTIBODY TO RUBEOLA 0.91 - 1.09 EQUIVOCAL; REPEAT TESTING SUGGESTED > OR = 1.10 POSITIVE ; INDICATES PRESENCE OF DETECTABLE IgG ANTIBODY TO RUBEOLA Performed By: #### 1 0055, 67775, 26931, 53672 #### [facility] [address] TB QUANTIFERON PLUSon 2021 MITOGEN MINUS NIL 8.15 IU/mL Normal [facility] Comment on above: Performed By: #### 3 1592 #### [facility] [address] [facility] NIL 0.03 IU/mL Normal [facility] Comment on above: Performed By: #### 3 1592 #### [facility] [address] TB QUANTIFERON Negative Normal NEGATIVE [facility] Comment on above: Result Comment: Eric tiferon TB Gold Interpretation (IU/mL): NEGATIVE: M. tuberculosis infection not likely. Nil: <=8.0 TB1 Antigen minus Nil (NQ8TL-HIV): <0.35 OR >=0.35; and <25% of Nil value. TB2 Antigen minus Nil (LT1WK-XCZ): <0.35 OR >=0.35; and <25% of Nil [...] (https://www.cdc.gov/tb/publications/guidlines/default.htm Performed By: #### 3 1592 #### [facility] [address] TB1 AG 0.03 IU/mL Normal [facility] Comment on above: Performed By: #### 3 1592 #### [facility] [address] TB1 AG MINUS NIL 0.00 IU/mL Normal [facility] Comment on above: Performed By: #### 3 1592 #### [facility] [address] TB2 AG 0.04 IU/mL Normal [facility] Comment on above: Performed By: #### 3 1592 #### [facility] [address] TB2 AG MINUS NIL 0.01 IU/mL Normal [facility] Comment on above: Performed By: #### 3 1592 #### [facility] [address] VARICELLA ZOSTER IGGon 02-07 VARICELLA IGG 2.60 Normal [facility] Comment on above: Result Comment: NORM AL RANGES: < OR = 0.9O NEGATIVE ; NO DETECTABLE IgG ANTIBODY TO VARICELLA-ZOSTER VIRUS 0.91 - 1.09 EQUIVOCAL; REPEAT TESTING SUGGESTED > OR = 1.10 POSITIVE ; INDICATES PRESENCE OF DETECTABLE IgG ANTIBODY TO VARICELLA-ZOSTER VIRUS Performed By: #### 1 0055, 35943, 99564, 62293 #### [facility] [address] HPV DNA High Riskon 08-19-19 22 HPV Interp Normal [facility] Comment on above: Result Comment: This [...] other forensic purposes. Performed By: #### H PVH #### [address] [address] Library Manager: Rickey Watson MD HPV Type 16 Not detected Normal [facility] Comment on above: Performed By: #### H PVH #### [address] [address] Library Manager: Rickey Watson MD HPV Type 18 Not detected Normal [facility] Comment on above: Performed By: #### H PVH #### [address] [address] Library Manager: Rickey Watson MD Other High Risk HPV Not detected [facility] Comment on above: Performed By: #### H PVH #### [address] [address] Library Manager: Rickey Watson MD HPV DNA High Riskon 08-18-19 22 Source .GENITAL - NOT SPECIFIED Normal [facility] Comment on above: Performed By: #### H PVH #### [address] [address] Library Manager: Rickey Watson MD HPV Sample .THIN PREP Normal [facility] Comment on above: Performed By: #### H PVH #### [address] [address] Library Manager: Rickey Watson MD Chlamydia/GC DNA, TPon 08-10 Chlamydia Probe, TP Negative Normal NEG [facility] Comment on above: Result Comment: CHLA [...] target. Performed By: #### C YTCGP #### [facility] [address] [place] [address] [id number] Library Manager: Rickey Watson MD Gonorrhea Probe, TP Negative Normal NEG [facility] Comment on above: Result Comment: NEIS [...] target. Performed By: #### C YTCGP #### [facility] [address] [place] [address] Library Manager: Rickey Watson MD Cytologyon 08-08-2021 Cytology (NOTE) INTERPRETATION Cervical material, (ThinPrep vial, Imaging-assisted review): Specimen Adequacy: Satisfactory for evaluation. - Endocervical/transform ation zone component present. - Scant cellularity. Descriptive Diagnosis: Atypical squamous cells of undetermined significance (ASC-US). Pricer: AMANDA Michaels M.D. Electronically Signed Out rdd/08/18/2021 Amendments Originally Reported As: Procedure/Addendum Source: Clinical History LMP: Patient Name: [facility] Rec: Path Number: Fax: Normal [facility] Comment on above: Performed By: #### P PPVP #### [facility] [address] [place] [address] Library Manager: Rickey Watson MD QuantiFERON TBon 12-24-2020 Quanti Binu minus NIL 8.10 IU/mL [facility] Comment on above: Performed By: #### R UBI, LUIZ, MARITZA, VZI #### [facility] [address] [place] [address] Library Manager: Rickey Watson MD #### AQF #### [facility] [address] [place] [address] Library Manager: Mark Grossman MD Quanti TB Gold Plus Negative Normal Negative [facility] Comment on above: Result Comment: (NOT [...] Mycobacterium tuberculosis Infection --- [place], 2010 (http://www.cdc.gov/mmwr/preview/mmwrhtml/de3784z0.htm), for more information concerning test performance in low-prevalence populations and use in occupational screening. Performed By: #### R UBI, LUIZ, MARITZA, VZI #### [email or web address] [address] [place], [place] [id number] Library Manager: Rickey Watson MD #### AQF #### [facility] [address] [place] [address] Library Manager: Mark Grossman MD Quanti TB1 minus NIL 0.00 IU/mL Normal 0.00-0.34 [facility] Comment on above: Performed By: #### R UBI LUIZ, MARITZA, VZI #### [email or web address] [address] [place] [address] [id number] Library Manager: Rickey Watson MD #### AQF #### [facility] [address] [place] [address] Library Manager: Mark Grossman MD Quanti TB2 minus NIL 0.01 IU/mL Normal 0.00-0.34 [facility] Comment on above: Performed By: #### R UBI, LUIZ, MARITZA, VZI #### [address] [address] Library Manager: Rickey Watson MD #### AQF #### [address] [address] Library Manager: Mark Grossman MD QuantiFERON NIL 0.01 IU/mL Normal [facility] Comment on above: Result Comment: (NOT E) Performed By: [address] [address] Assessment Clinician: Carolyn Wei MD Performed By: #### R UBI, LUIZ, MARITZA, VZI #### [address] [address] Library Manager: Rickey Watson MD #### AQF #### [address] [id number] Library Manager: Mark Grossman MD Measles (Rubeola) Imon 12-227 Measles (Rubeola) Im 3.68 Normal >1.09 [facility] Comment on above: Result Comment: Interpretation: IMMUNE Reference Range: <0.91 Not Immune 0.91-1.09 Equivocal >1.09 Immune Performed By: #### R UBI, LUIZ, MARITZA, VZI #### [address] [address] Library Manager: Rickey Watson MD #### AQF #### [facility] [address] [place] [address] Library Manager: Mark Grossman MD Mumps,Immun,Abon 12-22-2020 Mumps,Immun,Ab 1.16 Normal >1.09 [facility] Comment on above: Result Comment: Interpretation: IMMUNE Reference Range: <0.91 Not Immune 0.91-1.09 Equivocal >1.09 Immune Performed By: #### R UBI, LUIZ, MARITZA, VZI #### [address] [address] Library Manager: Rickey Watson MD #### AQF #### [facility] [address] [place], [place] [id number] Library Manager: Mark Grossman MD VZ Immunityon 12-22-2020 VZ Immunity 2.24 Normal >1.09 [facility] Comment on above: Result Comment: Interpretation: IMMUNE Reference Range: <0.91 Not Immune 0.91-1.09 Equivocal >1.09 Immune Performed By: #### R UBI, LUIZ, MARITZA, VZI #### [address] [address] Library Manager: Rickey Watson MD #### AQF #### [address] [id number] Library Manager: Mark Grossman MD Rubella Ab, IgGon 12-21-2020 Rubella Ab, IgG 16.2 IU/mL Normal [facility] Comment on above: Result Comment: REFERENCE RANGE: <5.0 NON-REACTIVE (non-immune) 5.0 TO 9.9 EQUIVOCAL >=10.0 REACTIVE (immune) Performed By: #### R UBI, LUIZ, MARITZA, VZI #### [address] [id number] Library Manager: Rickey Watson MD #### AQF #### [facility] [address] [place], [place] [id number] Library Manager: Mark Grossman MD Rubella antibody, IgGOrdered By: Jimmy Meehan on 12-21-2020 Rubella virus IgG Ql (S) 16.2 IU/mL [facility] Phone: Comment on above: REFERENCE RANGE: <5.0 NON-REACTIVE (non-immune) 5.0 TO 9.9 EQUIVOCAL >=10.0 REACTIVE (immune) [facility] Phone: Lab - Toxicology Resultson 0 03-11-2020 Lab - Toxicology Results [id number] [id number] Normal [facility] QuantiFERON TB Gold (In Tube ) LCon 03-08-2020 QuantiFERON Criteria LC Comment [facility] Comment on above: Result Comment: The QuantiFERON-TB Gold Plus result is determined by subtracting the Nil value from either TB antigen (Ag) tube. The mitogen tube serves as a control for the test. Performed By: #### 4 [id number], [id number] #### [facility] (DEFAULT) [address] [place] [address] QuantiFERON M. tuberculosis1 Ag Value LC 0.09 IU/mL [facility] Comment on above: Performed By: #### 4 [id number], [id number] #### [facility] (DEFAULT) [address] [place] [address] QuantiFERON M. tuberculosis2 Ag Value LC 0.08 IU/mL [facility] Comment on above: Performed By: #### 4 [id number], [id number] #### [facility] (DEFAULT) [address] [place] [address] QuantiFERON Mitogen Value LC >10.00 [facility] Comment on above: Result Comment: Perf ormed At: [facility] [address] [id number] Kat Arevaol PhD Ph:[phone] Performed By: #### 4 [id number], [id number] #### [facility] (DEFAULT) [address] [place] [address] QuantiFERON Nil Value LC 0.01 IU/mL [facility] Comment on above: Performed By: #### 4 [id number], [id number] #### [facility] (DEFAULT) [address] [place] [address] QuantiFERON-TB Gold Plus LCo n 03-08-2020 QuantiFERON-TB Gold Plus LC Negative Negative [facility] Comment on above: Result Comment: Perf ormed At: [address] [id number] Kat Arevalo PhD Ph:[phone] Performed By: #### 4 [id number], [id number] #### [facility] (DEFAULT) [address] [place] [address] QuantiFERON Incubation LC Incubation performed. [facility] Comment on above: Result Comment: Perf ormed At: [address] [id number] Kat Arevalo PhD Ph:[phone] Performed By: #### 4 [id number], [id number] #### [facility] (DEFAULT) [address] [place] [address] HBSab Qnt on 03-05-2020 Hep B Surf Ab Quant LC 145.6 mIU/mL Immunity>9.9 [facility] Comment on above: Result Comment: Stat us of Immunity Anti-HBs Level Inconsistent with Immunity 0.0 - 9.9 Consistent with Immunity >9.9 Performed At: [address] [id number] Kat Arevalo PhD Ph:[phone] Performed By: #### 1 [id number], [id number] #### [facility] (DEFAULT) [address] [place] [address] Measles/Mumps/Rubella Immuni ty LCon 03-05-2020 Mumps Abs, IgG LC 69.5 AU/mL Immune >10.9 [facility] Comment on above: Result Comment: Nega tive <9.0 Equivocal 9.0 - 10.9 Positive >10.9 A positive result generally indicates past exposure to Mumps virus or previous vaccination. Performed At: [address] [id number] Arevalo PhD Ph:[phone] Performed By: #### 1 [id number], [id number] #### [facility] (DEFAULT) [address] [place] [address] Rubella Antibodies, IgG LC 1.75 index Immune >0.99 [facility] Comment on above: Result Comment: Non- immune <0.90 Equivocal 0.90 - 0.99 Immune >0.99 Performed By: #### 1 [id number], [id number] #### [facility] (DEFAULT) [address] [place] [address] Rubeola Ab, IgG, EIA LC >300.0 Immune >16.4 [facility] Comment on above: Result Comment: Nega tive <13.5 Equivocal 13.5 - 16.4 Positive >16.4 Presence of antibodies to Rubeola is presumptive evidence of immunity except when acute infection is suspected. Performed By: #### 1 [id number], [id number] #### [facility] (DEFAULT) [address] [place] [address] Nicotine Metabolite, Urine L Con 03-05-2020 Cotinine LC Negative Klyuuv=[id number] [facility] Comment on above: Result Comment: Perf ormed At: [facility] [address] [place], [place] [id number] Jose Schwartz PhD Ph:[phone] Performed By: #### 1 [id number] #### [facility] (DEFAULT) [address] [place] [address] Encounters Encounter Date Encounter Type Care Provider Facility Start: 04-17-2024 End: 04-17-2024 ambulatory JASIEL RICHARD Not Available Start: 04-10-2024 End: 04-10-2024 ambulatory JASIEL Kenny RAMOS [facility] Start: 03-13-2024 End: 03-13-2024 ambulatory CORRIE CANALES Not Available Start: 02-13-2024 End: 02-13-2024 ambulatory JASIEL RICHARD Not Available Start: 01-17-2024 End: 01-17-2024 ambulatory JASIEL RICHARD Not Available Start: 08-22-2023 End: 08-22-2023 ambulatory JASIEL RICHARD Not Available Start: 07-04-2023 End: 07-04-2023 ambulatory JASIEL RICHARD Not Available Start: 08-21-2022 End: 08-21-[address] [facility]LLAMY [facility] Facility:H1 Start: 08-08-2021 End: 08-09-2021 ambulatory SHANTELLE DEAN [facility] Start: 12-21-2020 End: 12-22-2020 ambulatory JIMMY MEEHAN [facility] Start: 12-21-2020 End: 12-21-2020 Subsequent hospital visit by physician Shantelle Dean PA-C Work Phone: [facility] Start: 03-18-2020 End: 03-18-2020 Subsequent hospital visit by physician Shantelle LLO[place]D [place] [facility] Procedures Date Procedure Procedure Detail Performing Clinician Start: 12-21-2020 Antibody rubella Ebnoy Meehan MD Work Phone: Plan of Treatment Date Care Activity Detail Author Start: 02-26-2027 DTaP/Tdap/Td vaccine (7 - Td) DTaP/Tdap/Td vaccine (7 - Td) [place], [place] Start: 03-18-2023 Screening for malign ant neoplasm of cervix [email or web address] Start: 06-12-2021 Screening for malign ant neoplasm of cervix Cervical cancer screen [place], [place] Start: 03-30-2021 Influenza vaccination Flu vacc ine (Season Ended) [email or web address]: Start: 03-30-2020 Influenza vaccination Flu vaccine (# 1) [place], [place] Start: 06-12-2019 Screening for Chlamy flaco trachomatis Chlamydia screen [place], [place] Start: 09-13-2011 Hepatitis A vaccine (2 of 2 - 2-dose series) Hepatitis A vaccine (2 of 2 - 2-dose series) [place], [place] Start: 2007 COVID-19 Vaccine (1) COVID-19 Vaccin e (1) [facility] Phone: Start: 1995 Hepatitis C screening Hepatitis C sc reen [facility] Phone: End: 12-21-2020 Mumps Antibody, IgG Mumps Antibody, IgG Lab Routine Once for 1 Occurrences starting 12/21/2020 until 12/21/2020 [facility] Phone: Comment on above: Once for 1 Occurrenc es starting 12/21/2020 until 12/21/2020 Mumps Antibody, IgG Mumps Antibo dy, IgG Lab Routine 12/21/2020 4:27 PM EDT [facility] Phone: End: 12-21-2020 Quantiferon TB Gold Quantiferon TB Gold Microbiology Routine Once for 1 Occurrences starting 12/21/2020 until 12/21/2020 [facility] Phone: Comment on above: Once for 1 Occurrenc es starting 12/21/2020 until 12/21/2020 Quantiferon TB Gold Quantiferon TB Gold Microbiology Routine 12/21/2020 4:27 PM EDT [facility] Phone: End: 12-21-2020 Rubeola Antibody, IgG Rubeola Antibody, IgG Lab Routine Once for 1 Occurrences starting 12/21/2020 until 12/21/2020 [facility] Phone: Comment on above: Once for 1 Occurrenc es starting 12/21/2020 until 12/21/2020 Rubeola Antibody, IgG Rubeola An tibody, IgG Lab Routine 12/21/2020 4:27 PM EDT [facility] Phone: End: 12-21-2020 Varicella Zoster Antibody, IgG Varicella Zoster Antibody, IgG Lab Routine Once for 1 Occurrences starting 12/21/2020 until 12/21/2020 [facility] Phone: Comment on above: Once for 1 Occurrenc es starting 12/21/2020 until 12/21/2020 Varicella Zoster Antibody, IgG Varicella Zoster Antibody, IgG Lab Routine 12/21/2020 4:27 PM EDT [facility] Phone: Immunizations Immunization Date Immunization Notes Care Provider Fa [facility] 03-09-2020 tuberculin skin test ; purified protein derivative solution, intradermal [facility] [place] 04-28-2019 influenza, injectabl e, quadrivalent, preservative free [facility] [place] 06-12-2018 influenza, injectabl e, quadrivalent, preservative free [facility] [place] 05-01-2018 tuberculin skin test ; purified protein derivative solution, intradermal [facility] [place] 09-12-2017 hepatitis B vaccine, adult dosage [facility] [place] 04-13-2017 Human Papillomavirus 9-valent vaccine [facility] [place] 04-10-2017 hepatitis B vaccine, adult dosage [facility] [place] 03-07-2017 hepatitis B vaccine, adult dosage [facility] [place] 03-07-2017 meningococcal polysaccharide (groups A, C, Y and W-135) diphtheria toxoid conjugate vaccine (MCV4P) [facility] [place] 03-07-2017 tuberculin skin test ; purified protein derivative solution, intradermal [facility] [place] 02-26-2017 tetanus toxoid, redu juve diphtheria toxoid, and acellular pertussis vaccine, adsorbed [facility] [place] 02-26-2017 tuberculin skin test ; purified protein derivative solution, intradermal [facility] [place] 08-13-2014 Human Papillomavirus 9-valent vaccine [facility] [place] 04-01-2014 meningococcal polysaccharide (groups A, C, Y and W-135) diphtheria toxoid conjugate vaccine (MCV4P) [facility] [place] 02-10-2014 Human Papillomavirus 9-valent vaccine [place], [place] Payers Date Payer Category Payer Unknown [id number] 2021 Unknown [id number] 2016 Private Health Insurance SHIV FIERRO [id number] 2016-Present [phone] [address] [place] [address] [id number] 1995 Unknown [id number] 75 1995 Unknown [id number] 93 1995 Unknown [id number] 286 1995 Unknown [id number] 259 1995 Unknown [id number] [id number] 259 1995 Unknown [id number] [id number] 259 1995 Unknown [id number] [id number] 259 1995 Unknown [id number] [id number] 259 1995 Unknown [id number] 259 1959 Unknown [id number] Social History Date Type Detail Facility Start: 03-18-2020 Tobacco smoking status NHIS Never sm oker [facility] [place] Start: 03-18-2020 Tobacco use and exposure Never used [facility] [place] Start: 02-05-2017 [facility] Comment [facility] [place] Sex Assigned At Not on file [facility] [place] Start: 1995 Sex Assigned At Female [employer] Work Phone: Summary Purpose Family History No Family History Records FoundNo Family History Records FoundNo Family History Records FoundNo Family History Records FoundNo Family History Records FoundNo Family History Records Found Advance Directives No Advanced Directives Records FoundDocuments on File Type Date Recorded Patient Plant Guide Expl anation 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 Additional Source Comments INFORMATION SOURCE (unrecogn ized section and content) DATE CREATED AUTHOR 03/12/2020 [facility] DATE CREATED AUTHOR AUTHOR'S ORGANIZ ATION 08/20/2021 [facility] DATE CREATED AUTHOR AUTHOR'S ORGANIZ ATION 02/18/2022 [facility] DATE CREATED AUTHOR AUTHOR'S ORGANIZ ATION 08/25/2022 [facility] DATE CREATED AUTHOR AUTHOR'S ORGANIZ ATION 04/12/2024 [facility] DATE CREATED AUTHOR AUTHOR'S ORGANIZ ATION 04/19/2024 [facility] EPIC FOR RECORDS PERTAINING TO PATIENTS WHO ARE [...] BE BASED ON THE PRIMARY CLINICAL RECORDS. [facility]. provides no warranty or guarantee of the accuracy or completeness of information in this document.
[2024-04-24 08:02] LABS: Basophils Percent Auto 0.2 % (0.2-2.0); Eosinophils Absolute Auto 0.1 10^3/uL (0.0-0.7); Eosinophils Percent Auto 0.7 % (0.9-7.0); Hematocrit 38.2 % (36.0-48.0); Hemoglobin 13.1 g/dL (12.0-16.0); Immature Granulocytes Abs Auto 0.12 10^3/uL (0.00-0.03); Immature Granulocytes Pct Auto 1.1 % (0.0-0.5); Lymphocytes Absolute Auto 2.1 10^3/uL (1.2-3.8); Lymphocytes Percent Auto 19.6 % (20.5-60.0); Mean Corpuscular HGB Conc 34.3 g/dL (29.9-35.2); Mean Corpuscular Hemoglobin 31.8 pg (26.7-34.0); Mean Corpuscular Volume 92.7 fL (81.0-99.0); Mean Platelet Volume 10.2 fL (9.5-13.5); Monocytes Absolute Auto 0.7 10^3/uL (0.3-0.8); Monocytes Percent Auto 6.3 % (1.7-12.0); Neutrophils Absolute Auto 7.9 10^3/uL (1.4-6.5); Neutrophils Percent Auto 72.1 % (43.0-75.0); Platelet Count 254 10^3/uL (150-450); Red Blood Count 4.12 10^6/uL (4.20-5.40); Red Cell Distribution Width 12.6 % (11.0-15.0); White Blood Count 10.9 10^3/uL (4.0-11.0)
[2024-04-24 08:48] LABS: Glucose 1 Hour 152 mg/dL (<130)
== END 2024-04-24 06:27 | disposition home or self-care (01) ==
LOC: LAB 06:27
PROVIDERS: Visit Provider Obstetrics & Gynecology
DX: Z13.1 Encounter for screening for diabetes mellitus (principal); Z3A.25 25 weeks gestation of pregnancy
CPT/HCPCS: 36415; 82950; 85025

== ENCOUNTER 2024-05-01 07:13 | Outpatient (OUT) | payer OTHER, SELFPAY ==
--- OUTSIDE RECORDS SUMMARY | 2024-05-01 07:16 | XMS_ITS | CCD ---
Author Organization [facility] Care Team Providers Care [place] [employer] Former Name Role Phone Shantelle Dean Primary Care [...] 2: 21 to 29on 08-25-2022 . . [facility] Comment on above: Performed By: #### 4 [id number] #### [facility] [address] [address] [address] Matias Shukla Age Gdln ACOG Testing [facility] Comment on above: Performed By: #### 4 [id number] #### [facility] [address] [address] [address] Matias Shukla DIAGNOSIS: Comment [facility] Comment on above: Result Comment: NEGA TIVE FOR INTRAEPITHELIAL LESION OR MALIGNANCY. Performed By: #### 4 [id number] #### [facility] [address] [address] [address] Matias Shukla Methodology: Comment [facility] Comment on above: Result Comment: This liquid based ThinPrep(R) pap test was screened with the use of an image guided system. Performed By: #### 4 [id number] #### [facility] [address] [address] [address] Matias Shukla Note: Comment [facility] Comment on above: Result Comment: The Pap smear is a screening test designed to aid in the detection of premalignant and malignant conditions of the uterine cervix. It is not a diagnostic procedure and should not be used as the sole means of detecting cervical cancer. Both false-positive and false-negative reports do occur. . Performed By: #### 4 [id number] #### [facility] [address] [place] [address] Dr. Matias Shukla Performed by: Comment [facility] Comment on above: Result Comment: Monika Prieto, Fitness Technician (ASCP) Performed By: #### 4 [id number] #### [facility] [address] [address] [address] Matias Shukla Reflex Criteria: Comment Normal [facility] Comment on above: Result Comment: The HPV DNA reflex criteria were not met with this specimen result therefore, no HPV testing was performed. . Performed By: #### 4 [id number] #### [facility] [address] [address] [address] Matias Shukla Specimen adequacy: Comment Normal [facility] Comment on above: Result Comment: Sati sfactory for evaluation. Endocervical and/or squamous metaplastic cells (endocervical component) are present. Performed By: #### 4 [id number] #### [facility] [address] [address] [address] Matias Shukla MUMPS IGG BLDon 02-07-2022 MUMPS IGG 1.14 Normal [facility] Comment on above: Result Comment: RAN IN TRIPLICATE NORMAL RANGES: < OR = 0.9O NEGATIVE ; NO DETECTABLE IgG ANTIBODY TO MUMPS 0.91 - 1.09 EQUIVOCAL; REPEAT TESTING SUGGESTED > OR = 1.10 POSITIVE ; INDICATES PRESENCE OF DETECTABLE IgG ANTIBODY TO MUMPS Performed By: #### 1 0055, 03840, 88973, 26802 #### [facility] [address] [place] [address], [facility] RUBELLAon 02-07-2022 RUBELLA 1.73 Normal [facility] Comment on above: Result Comment: NORM AL RANGES: < OR = 0.9O NEGATIVE ; NO DETECTABLE IgG ANTIBODY TO RUBELLA 0.91 - 1.09 EQUIVOCAL; REPEAT TESTING SUGGESTED > OR = 1.10 POSITIVE ; INDICATES PRESENCE OF DETECTABLE IgG ANTIBODY TO RUBELLA VIRUS Performed By: #### 1 0055, 32144, 61808, 03776 #### [facility] [address] [place] [address], [facility] RUBEOLA MEASLES IGGon 2021 RUBEO IGG 4.62 Normal [facility] Comment on above: Result Comment: NORM AL RANGES: < OR = 0.9O NEGATIVE ; NO DETECTABLE IgG ANTIBODY TO RUBEOLA 0.91 - 1.09 EQUIVOCAL; REPEAT TESTING SUGGESTED > OR = 1.10 POSITIVE ; INDICATES PRESENCE OF DETECTABLE IgG ANTIBODY TO RUBEOLA Performed By: #### 1 0055, 63049, 84505, 91362 #### [facility] [address] TB QUANTIFERON PLUSon 2021 MITOGEN MINUS NIL 8.15 IU/mL Normal [facility] Comment on above: Performed By: #### 3 1592 #### [facility] [address] [facility] [address] NIL 0.03 IU/mL Normal [facility] Comment on above: Performed By: #### 3 1592 #### [facility] [address] TB QUANTIFERON Negative Normal NEGATIVE [facility] Comment on above: Result Comment: Eric tiferon TB Gold Interpretation (IU/mL): NEGATIVE: M. tuberculosis infection not likely. Nil: <=8.0 TB1 Antigen minus Nil ([id number]-GJP): <0.35 OR >=0.35; and <25% of Nil value. TB2 Antigen minus Nil (XA3JJ-SAA): <0.35 OR >=0.35; and <25% of Nil [...] (https://www.cdc.gov/tb/publications/guidlines/default.htm Performed By: #### 3 1592 #### [facility] [address] TB1 AG 0.03 IU/mL Normal [facility] Comment on above: Performed By: #### 3 1592 #### [facility] [address] TB1 AG MINUS NIL 0.00 IU/mL Normal [facility] Comment on above: Performed By: #### 3 1592 #### [facility] [address] TB2 AG 0.04 IU/mL Normal [facility] Comment on above: Performed By: #### 3 1592 #### [facility] [address] TB2 AG MINUS NIL 0.01 IU/mL Normal [facility] Comment on above: Performed By: #### 3 1592 #### [facility] [address] VARICELLA ZOSTER IGGon 02-07 VARICELLA IGG 2.60 Normal [facility] Comment on above: Result Comment: NORM AL RANGES: < OR = 0.9O NEGATIVE ; NO DETECTABLE IgG ANTIBODY TO VARICELLA-ZOSTER VIRUS 0.91 - 1.09 EQUIVOCAL; REPEAT TESTING SUGGESTED > OR = 1.10 POSITIVE ; INDICATES PRESENCE OF DETECTABLE IgG ANTIBODY TO VARICELLA-ZOSTER VIRUS Performed By: #### 1 0055, 80318, 05519, 22753 #### [facility] [address] HPV DNA High Riskon 08-19-19 22 HPV Interp Normal [facility] Comment on above: Result Comment: This [...] purposes. Performed By: #### H PVH #### [address] [address] Inspector And Clerk: Rickey Watson MD HPV Type 16 Not detected Normal [facility] Comment on above: Performed By: #### H PVH #### [address] [address] Inspector And Clerk: Rickey Watson MD HPV Type 18 Not detected Normal [facility] Comment on above: Performed By: #### H PVH #### [address] [address] Inspector And Clerk: Rickey Watson MD Other High Risk HPV Not detected [facility] Comment on above: Performed By: #### H PVH #### [address] [address] Inspector And Clerk: Rickey Watson MD HPV DNA High Riskon 08-18-19 22 Source .GENITAL - NOT SPECIFIED Normal [facility] Comment on above: Performed By: #### H PVH #### [address] [address] Inspector And Clerk: Rickey Watson MD HPV Sample .THIN PREP Normal [facility] Comment on above: Performed By: #### H PVH #### [address] [address] Inspector And Clerk: Rickey Watson MD Chlamydia/GC DNA, TPon 08-10 Chlamydia Probe, TP Negative Normal NEG [facility] Comment on above: Result Comment: CHLA [...] target. Performed By: #### C YTCGP #### [facility] [employer] [address] [place] [address] [id number] Inspector And Clerk: Rickey Watson MD Gonorrhea Probe, TP Negative Normal NEG [facility] Comment on above: Result Comment: NEIS [...] target. Performed By: #### C YTCGP #### [facility] [employer] [address] [place] [id number] Inspector And Clerk: Rickey Watson MD Cytologyon 08-08-2021 Cytology (NOTE) INTERPRETATION Cervical material, (ThinPrep vial, Imaging-assisted review): Specimen Adequacy: Satisfactory for evaluation. - Endocervical/transform ation zone component present. - Scant cellularity. Descriptive Diagnosis: Atypical squamous cells of undetermined significance (ASC-US). Fitness Technician: AMANDA Michaels M.D. Electronically Signed Out rdd/08/18/2021 Amendments Originally Reported As: Procedure/Addendum Source: Clinical History LMP: Patient Name: [facility] Rec: Path Number: Fax: Normal [facility] Comment on above: Performed By: #### P PPVP #### [facility] [employer] [address] [place] [address] Inspector And Clerk: Rickey Watson MD QuantiFERON TBon 12-24-2020 Quanti Binu minus NIL 8.10 IU/mL [facility] Comment on above: Performed By: #### R UBI, LUIZ, MARITZA, VZI #### [facility] [employer] [facility] [address] [place] [address] Inspector And Clerk: Rickey Watson MD #### AQF #### [facility] [address] [place] [address] Inspector And Clerk: Mark Grossman MD Quanti TB Gold Plus Negative Normal Negative [facility] Comment on above: Result Comment: (NOT [...] Mycobacterium tuberculosis Infection --- [place], 2010 (http://www.cdc.gov/mmwr/preview/mmwrhtml/xl9648x6.htm), for more information concerning test performance in low-prevalence populations and use in occupational screening. Performed By: #### R UBI, LUIZ, MARITZA, VZI #### [employer] [address] [place], [place] [id number] Inspector And Clerk: Rickey Watson MD #### AQF #### [facility] [address] [place] [address] Inspector And Clerk: Mark Grossman MD Quanti TB1 minus NIL 0.00 IU/mL Normal 0.00-0.34 [facility] Comment on above: Performed By: #### R UBI LUIZ, MARITZA, VZI #### [facility] [address] [place] [address] [id number] Inspector And Clerk: Rickey Watson MD #### AQF #### [facility] [address] [place] [address] Inspector And Clerk: Mark Grossman MD Quanti TB2 minus NIL 0.01 IU/mL Normal 0.00-0.34 [facility] Comment on above: Performed By: #### R UBI, LUIZ, MARITZA, VZI #### [address] [address] Inspector And Clerk: Rickey Watson MD #### AQF #### [address] [address] Inspector And Clerk: Mark Grossman MD QuantiFERON NIL 0.01 IU/mL Normal [facility] Comment on above: Result Comment: (NOT E) Performed By: [address] [address] Inspector Timers: Carolyn Wei MD Performed By: #### R UBI, LUIZ, MARITZA, VZI #### [address] [address] Inspector And Clerk: Rickey Watson MD #### AQF #### [address] [id number] Inspector And Clerk: Mark Grossman MD Measles (Rubeola) Imon 12-22 Measles (Rubeola) Im 3.68 Normal >1.09 [facility] Comment on above: Result Comment: Interpretation: IMMUNE Reference Range: <0.91 Not Immune 0.91-1.09 Equivocal >1.09 Immune Performed By: #### R UBI, LUIZ, MARITZA, VZI #### [address] [address] Inspector And Clerk: Rickey Watson MD #### AQF #### [facility] [address] [place] [address] Inspector And Clerk: Mark Grossman MD Mumps,Immun,Abon 12-22-2020 Mumps,Immun,Ab 1.16 Normal >1.09 [facility] Comment on above: Result Comment: Interpretation: IMMUNE Reference Range: <0.91 Not Immune 0.91-1.09 Equivocal >1.09 Immune Performed By: #### R UBI, LUIZ, MARITZA, VZI #### [address] [address] Inspector And Clerk: Rickey Watson MD #### AQF #### [facility] [address] [place], [place] [id number] Inspector And Clerk: Mark Grossman MD VZ Immunityon 12-22-2020 VZ Immunity 2.24 Normal >1.09 [facility] Comment on above: Result Comment: Interpretation: IMMUNE Reference Range: <0.91 Not Immune 0.91-1.09 Equivocal >1.09 Immune Performed By: #### R UBI, LUIZ, MARITZA, VZI #### [address] [address] Inspector And Clerk: Rickey Watson MD #### AQF #### [address] [id number] Inspector And Clerk: Mark Grossman MD Rubella Ab, IgGon 12-21-2020 Rubella Ab, IgG 16.2 IU/mL Normal [facility] Comment on above: Result Comment: REFERENCE RANGE: <5.0 NON-REACTIVE (non-immune) 5.0 TO 9.9 EQUIVOCAL >=10.0 REACTIVE (immune) Performed By: #### R UBI, LUIZ, MARITZA, VZI #### [address] [id number] Inspector And Clerk: Rickey Watson MD #### AQF #### [facility] [address] [place], [place] [id number] Inspector And Clerk: Mark Grossman MD Rubella antibody, IgGOrdered By: Jimmy Meehan on 12-21-2020 Rubella virus IgG Ql (S) 16.2 IU/mL [employer] Phone: Comment on above: REFERENCE RANGE: <5.0 NON-REACTIVE (non-immune) 5.0 TO 9.9 EQUIVOCAL >=10.0 REACTIVE (immune) [employer] Phone: Lab - Toxicology Resultson 0 03-11-2020 Lab - Toxicology Results [id number] Normal [facility] QuantiFERON TB Gold (In Tube ) LCon 03-08-2020 QuantiFERON Criteria LC Comment [facility] Comment on above: Result Comment: The QuantiFERON-TB Gold Plus result is determined by subtracting the Nil value from either TB antigen (Ag) tube. The mitogen tube serves as a control for the test. Performed By: #### 4 [id number], [id number] #### [facility] (DEFAULT) [address] [place] [address] QuantiFERON M. tuberculosis1 Ag Value LC 0.09 IU/mL [facility] Comment on above: Performed By: #### 4 [id number], [id number] #### [facility] (DEFAULT) [address] [place] [address] QuantiFERON M. tuberculosis2 Ag Value LC 0.08 IU/mL [facility] Comment on above: Performed By: #### 4 [id number], [id number] #### [facility] (DEFAULT) [address] [place] [address] QuantiFERON Mitogen Value LC >10.00 [facility] Comment on above: Result Comment: Perf ormed At: [facility] [address] [id number] Kat Arevalo PhD Ph:[phone] Performed By: #### 4 [id number], [id number] #### [facility] (DEFAULT) [address] [place] [address] QuantiFERON Nil Value LC 0.01 IU/mL [facility] Comment on above: Performed By: #### 4 [id number], [id number] #### [facility] (DEFAULT) [address] [place] [address] QuantiFERON-TB Gold Plus LCo n 03-08-2020 QuantiFERON-TB Gold Plus LC Negative Negative [facility] Comment on above: Result Comment: Perf ormed At: [address] [id number] Kat Arevalo PhD Ph:[phone] Performed By: #### 4 [id number], [id number] #### [facility] (DEFAULT) [address] [place] [address] QuantiFERON Incubation LC Incubation performed. [facility] Comment on above: Result Comment: Perf ormed At: [address] [id number] Kat Arevalo PhD Ph:[phone] Performed By: #### 4 [id number], [id number] #### [facility] (DEFAULT) [address] [place] [address] HBSab Qnt on 03-05-2020 Hep B Surf Ab Quant LC 145.6 mIU/mL Immunity>9.9 [facility] Comment on above: Result Comment: Stat us of Immunity Anti-HBs Level Inconsistent with Immunity 0.0 - 9.9 Consistent with Immunity >9.9 Performed At: [address] [id number] Kat Arevalo PhD Ph:[phone] Performed By: #### 1 [id number], [id number] #### [facility] (DEFAULT) [address] [place] [address] Measles/Mumps/Rubella Immuni ty LCon 03-05-2020 Mumps Abs, IgG LC 69.5 AU/mL Immune >10.9 [facility] Comment on above: Result Comment: Nega tive <9.0 Equivocal 9.0 - 10.9 Positive >10.9 A positive result generally indicates past exposure to Mumps virus or previous vaccination. Performed At: [address] [id number] Arevalo PhD Ph:[phone] Performed By: #### 1 [id number], [id number] #### [facility] (DEFAULT) [address] [place] [address] Rubella Antibodies, IgG LC 1.75 index Immune >0.99 [facility] Comment on above: Result Comment: Non- immune <0.90 Equivocal 0.90 - 0.99 Immune >0.99 Performed By: #### 1 [id number], [id number] #### [facility] (DEFAULT) [address] [place] [address] Rubeola Ab, IgG, EIA LC >300.0 Immune >16.4 [facility] Comment on above: Result Comment: Nega tive <13.5 Equivocal 13.5 - 16.4 Positive >16.4 Presence of antibodies to Rubeola is presumptive evidence of immunity except when acute infection is suspected. Performed By: #### 1 [id number], [id number] #### [facility] (DEFAULT) [address] [place] [address] Nicotine Metabolite, Urine L Con 03-05-2020 Cotinine LC Negative [id number] [facility] Comment on above: Result Comment: Perf ormed At: [facility] [address] [place], [place] [id number] Jose Schwartz PhD Ph:[phone] Performed By: #### 1 [id number] #### [facility] (DEFAULT) [address] [place] [address] Encounters Encounter Date Encounter Type Care Provider Facility Start: 04-17-2024 End: 04-17-2024 ambulatory JASIEL RICHARD Not Available Start: 04-10-2024 End: 04-10-2024 ambulatory JASIEL Kneny [facility] Start: 03-13-2024 End: 03-13-2024 ambulatory CORRIE CANALES Not Available Start: 02-13-2024 End: 02-13-2024 ambulatory JASIEL RICHARD Not Available Start: 01-17-2024 End: 01-17-2024 ambulatory JASIEL RICHARD Not Available Start: 08-22-2023 End: 08-22-2023 ambulatory JASIEL RICHARD Not Available Start: 07-04-2023 End: 07-04-2023 ambulatory JAISEL RICHARD Not Available Start: 08-21-2022 End: 08-21-[address] [facility] Start: 08-08-2021 End: 08-09-2021 ambulatory SHANTELLE DEAN [facility] Start: 12-21-2020 End: 12-22-2020 ambulatory JIMMY MEEHAN [facility] Start: 12-21-2020 End: 12-21-2020 Subsequent hospital [...] - Td) DTaP/Tdap/Td vaccine (7 - Td) [place], [place] Start: 03-18-2023 Screening for malign ant neoplasm of cervix [facility]: Start: 06-12-2021 Screening for malign ant neoplasm of cervix Cervical cancer screen [place], [place] Start: 03-30-2021 Influenza vaccination Flu vacc ine (Season Ended) [facility] Start: 03-30-2020 Influenza vaccination Flu vaccine (# 1) [place], [place] Start: 06-12-2019 Screening for Chlamy flaco trachomatis Chlamydia screen [place], [place] Start: 09-13-2011 Hepatitis A vaccine (2 of 2 - 2-dose series) Hepatitis A vaccine (2 of 2 - 2-dose series) [place], [place] Start: 2007 COVID-19 Vaccine (1) COVID-19 Vaccin e (1) [facility] [employer] Phone: Start: 1995 Hepatitis C screening Hepatitis C sc reen [employer] Phone: End: 12-21-2020 Mumps Antibody, IgG Mumps Antibody, IgG Lab Routine Once for 1 Occurrences starting 12/21/2020 until 12/21/2020 [employer] Phone: Comment on above: Once for 1 Occurrenc es starting 12/21/2020 until 12/21/2020 Mumps Antibody, IgG Mumps Antibo dy, IgG Lab Routine 12/21/2020 4:27 PM EDT [employer] Phone: End: 12-21-2020 Quantiferon TB Gold Quantiferon TB Gold Microbiology Routine Once for 1 Occurrences starting 12/21/2020 until 12/21/2020 [employer] Phone: Comment on above: Once for 1 Occurrenc es starting 12/21/2020 until 12/21/2020 Quantiferon TB Gold Quantiferon TB Gold Microbiology Routine 12/21/2020 4:27 PM EDT [employer] Phone: End: 12-21-2020 Rubeola Antibody, IgG Rubeola Antibody, IgG Lab Routine Once for 1 Occurrences starting 12/21/2020 until 12/21/2020 [employer] Phone: Comment on above: Once for 1 Occurrenc es starting 12/21/2020 until 12/21/2020 Rubeola Antibody, IgG Rubeola An tibody, IgG Lab Routine 12/21/2020 4:27 PM EDT [employer] Phone: End: 12-21-2020 Varicella Zoster Antibody, IgG Varicella Zoster Antibody, IgG Lab Routine Once for 1 Occurrences starting 12/21/2020 until 12/21/2020 [employer] Phone: Comment on above: Once for 1 Occurrenc es starting 12/21/2020 until 12/21/2020 Varicella Zoster Antibody, IgG Varicella Zoster Antibody, IgG Lab Routine 12/21/2020 4:27 PM EDT [employer] Phone: Immunizations Immunization Date Immunization Notes Care Provider [facility] 03-09-2020 tuberculin skin test ; purified protein derivative solution, intradermal [facility] 04-28-2019 influenza, injectabl e, quadrivalent, preservative free [facility] 06-12-2018 influenza, injectabl e, quadrivalent, preservative free [facility] 05-01-2018 tuberculin skin test ; purified protein derivative solution, intradermal [facility] 09-12-2017 hepatitis B vaccine, adult dosage [facility] 04-13-2017 Human Papillomavirus 9-valent vaccine [facility] 04-10-2017 hepatitis B vaccine, adult dosage [facility] 03-07-2017 hepatitis B vaccine, adult dosage [facility] 03-07-2017 meningococcal polysaccharide (groups A, C, Y and W-135) diphtheria toxoid conjugate vaccine (MCV4P) [facility] 03-07-2017 tuberculin skin test ; purified protein derivative solution, intradermal [facility] 02-26-2017 tetanus toxoid, redu juve diphtheria toxoid, and acellular pertussis vaccine, adsorbed [facility] 02-26-2017 tuberculin skin test ; purified protein derivative solution, intradermal [facility] 08-13-2014 Human Papillomavirus 9-valent vaccine [facility] 04-01-2014 meningococcal polysaccharide (groups A, C, Y and W-135) diphtheria toxoid conjugate vaccine (MCV4P) [facility] 02-10-2014 Human Papillomavirus 9-valent vaccine [place], [place] Payers Date Payer Category Payer Unknown [id number] 2021 Unknown [id number] 2016 Private Health Insurance SHIV FIERRO [id number] 2016-Present [phone] [address] [place] [address] [id number] 1995 Unknown [id number] 75 1995 Unknown [id number] 93 1995 Unknown [id number] 286 1995 Unknown [id number] 259 1995 Unknown [id number] [id number] 259 1995 Unknown [id number] 259 1995 Unknown [id number] 259 1995 Unknown [id number] [id number] 259 1995 Unknown [id number] 259 1959 Unknown [id number] Social History Date Type Detail Facility Start: 03-18-2020 Tobacco smoking status NHIS Never sm oker [facility] [place] Start: 03-18-2020 Tobacco use and exposure Never used [facility] [place] Start: 02-05-2017 Alcohol Comment [facility] [place] Sex Assigned At Not on file [facility] [place] Start: 1995 Sex Assigned At Female [employer] Work Phone: Summary Purpose Family History No Family History Records FoundNo Family History Records FoundNo Family History Records FoundNo Family History Records FoundNo Family History Records FoundNo Family History Records Found Advance Directives No Advanced Directives Records FoundDocuments on File Type Date Recorded 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 Additional Source Comments INFORMATION SOURCE (unrecogn ized section and content) DATE CREATED AUTHOR 03/12/2020 [facility] DATE CREATED AUTHOR AUTHOR'S ORGANIZ ATION 08/20/2021 [facility] DATE CREATED AUTHOR AUTHOR'S ORGANIZ ATION 02/18/2022 [facility] DATE CREATED AUTHOR AUTHOR'S ORGANIZ ATION 08/25/2022 [facility] DATE CREATED AUTHOR AUTHOR'S ORGANIZ ATION 04/12/2024 [facility] DATE CREATED AUTHOR AUTHOR'S ORGANIZ ATION 04/19/2024 [facility] EPIC FOR RECORDS PERTAINING [...] BE BASED ON THE PRIMARY CLINICAL RECORDS. [employer] [facility]. provides no warranty or guarantee of the accuracy or completeness of information in this document.
[2024-05-01 08:52] LABS: Glucose Fasting 97 mg/dL (<95)
[2024-05-01 09:21] LABS: Glucose 1 Hour 173 mg/dL (<180)
[2024-05-01 10:14] LABS: Glucose 2 Hour 162 mg/dL (<155)
[2024-05-01 10:49] LABS: Glucose 3 Hour 114 mg/dL (<140)
== END 2024-05-01 07:14 | disposition home or self-care (01) ==
LOC: LAB 07:13
PROVIDERS: Visit Provider Obstetrics & Gynecology
DX: R73.09 Other abnormal glucose (principal)
CPT/HCPCS: 36415; 82951; 82952

== ENCOUNTER 2024-05-22 09:15 | Outpatient (OUT) | payer OTHER, SELFPAY ==
--- NOTE | 2024-05-22 | US_ITS ---
[address] [address] Patient Name: ZAKIA SEARS MRN: [id number] date: 1995 Sex: F Assigned Patient Location: [facility] Current Patient Location: [facility] Accession/Order Number: [id number] Exam Date: 05/22/2024 09:18 Report Date: 05/22/2024 11:24 At the request of: CORRIE CANALES Procedure: US OB growth EXAMINATION: US OB growth HISTORY: INCONSISTENT SIZE AND DATES COMPARISON: Ultrasound OB anatomy 03/13/2024 FINDINGS: Heart Rate: 144 bpm Amniotic Fluid Volume: 14.6 cm; normal range Number: 1 Position: CEPHALIC BIOMETRY: BPD: 7.57 cm; 30 weeks 3 days; 31.90 % HC: 28.99 cm; 31 weeks 6 days; 52.30 % AC: 28.64 cm; 32 weeks 5 days; 93.70 % FL: 5.79 cm; 30 weeks 2 days; 27.80 % EFW: 1783.18 g; 75.80 % FL/AC: 20.22 FL/BPD: 76.49 HC/AC: 1.01 GESTATIONAL AGE: Age by EDC: 30 weeks 4 days VICTORINA by EDC: 2024-07-27 Age by US: 31 weeks 2 days VICTORINA by US: 2024-07-22 US/US OB growth IMPRESSION: 1. Single live intrauterine with growth detailed above. Electronically authenticated by: MARIAM GARCIA Date: 05/22/2024 11:24
--- OUTSIDE RECORDS SUMMARY | 2024-05-22 09:37 | XMS_ITS | CCD ---
Author Organization [facility] Care Team Providers Care Operations Supervisor 2Nd Shift Name Role Phone Shantelle Dean Primary Care Provider JIMMY MEEHAN Referring Unavailable SHANTELLE DEAN Primary Care Unavailable SHANTELLE DEAN Referring Unavailable SHANTELLE DEAN Primary Care Unavailable MISHaroon, DR BELLAMY Primary Care Unavailable DESHAUN, DR WEATHERS Attending Unavailable DESHAUN, DR WEATHERS Consulting Unavailable DESHAUN, DR WEATHERS Admitting Unavailable JASIEL MEADE Referring Unavailable Shantelle Dean MD Primary Care Provider JASIEL MEADE Attending Unavailable JASIEL MEADE Attending Unavailable JASIEL MEADE Attending Unavailable SURI CANALES Attending Unavailable JASIEL MEADE Attending Unavailable SURI CANALES Attending Unavailable Medications Current Medications Medication Drug Class(es) Dates Sig (Normalized) Sig (Original) etonogestrel 68 mg drug implant (2 sources) Progestin etonogestrel (NEXPLANON) 68 MG implant 68 mg by Subdermal route once 0 Active magnesium oxide 400 mg oral tablet (4 sources) take 1 tablet by mouth in the morning magnesium oxide (Mag-Ox) 400 MG tablet Take 400 mg by mouth in the morning. 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] Onset: 04-28-2019 04-28-2019 Chronic Immunizations and screening for infectious disease (1 source) Encounter for screening for human papillomavirus (HPV); Translations: [ENC SCREENING HUMAN PAPILLOMAVIRUS] Onset: 08-23-2022 Episodic Other complications of (2 sources) size does not accord with dates; Translations: [Uterine size-date discrepancy, unspecified trimester] 05-08-2024 Episodic Other and delivery including normal (2 sources) Third trimester ; Translations: [Encounter for supervision of normal , unspecified, third trimester] 05-08-2024 Episodic Other screening for suspected conditions (not mental disorders or infectious disease) (5 sources) Encounter for screening for malignant neoplasm of cervix; Translations: [Encounter for other specified screening] Onset: 08-21-2022 Episodic Residual codes; unclassified (2 sources) Gestation period, 28 weeks; Translations: [28 weeks gestation of ] 05-08-2024 Episodic Past or Other Problems Problem Classification Problem Date Documented Date Episodic/Chronic Abdominal pain (4 sources) Vaginal pain; Translations: [Pelvic and perineal pain] Onset: 08-20-2023 08-20-2023 Episodic Contraceptive and procreative management (1 source) Patient [...] Results Test Name Value Interpretation Reference Range Facility Urinalysis macro (dipstick) panel (U)on 05-08-2024 Bilirubin, UA Negative Negative - 4(70) +++ mg/dL [facility] Blood, UA Negative Negative - 50 Bib/mcL [facility] Clarity, UA Clear [facility] re Color, UA Yellow [facility] Healthcar e Glucose, UA Negative Negative - 1999(110) ++++ mg/dL [facility] Interpretation and review of laboratory results Abnormal [facility] Ketones, UA Negative Negative - 160(16) ++++ mg/dL [facility] Leukocytes, UA Positive Negative - 500+++ Alvaro/mcL [facility] Comment on above: small Nitrite, UA Negative Negative - Positive [facility] pH, UA 7.0 5 - 9 [facility] Protein, UA Negative Negative - 1999(20) ++++ mg/dL [facility] Spec Grav, UA 1.020 1 - 1.03 [facility] Urobilinogen, UA 0.2 0.2 - 12 mg/dL [facility] [email or web address] e GLUCOSE TOLERANCE 3 HOURon 1 GLUCOSE TOLERANCE 3 HOUR High mg/dL [facility] Comment on above: GLU FAST 97H (<95) Col: 05/01/24 0722 GLU 1HR 173 (<180) Col: 05/01/24 0823 GLU 2HR 162H (<155) Col: 05/01/24 0924 GLU 3HR 114 (<140) Col: 05/01/24 1022 Interpretation and review of laboratory results Abnormal [facility] e PAP ACOG PANEL 2: 21 to 29on 08-25-2022 . . Normal [facility] Comment on above: Performed By: #### 4 [id number] #### [facility] [address] [address] [address] Matias Shukla Age Gdln ACOG Testing - [facility] Comment on above: Performed By: #### 4 [id number] #### [facility] [address] [address] [address] Matias Shukla DIAGNOSIS: Comment [facility] Comment on above: Result Comment: NEGA TIVE FOR INTRAEPITHELIAL LESION OR MALIGNANCY. Performed By: #### 4 [id number] #### [facility] [address] [address] [address] Matias Shukla Methodology: Comment [facility] Comment on above: Result Comment: This liquid based ThinPrep(R) pap test was screened with the use of an image guided system. Performed By: #### 4 [id number] #### [facility] [address] [address] [address] Matias Shukla Note: Comment [facility] Comment on above: Result Comment: The Pap smear is a screening test designed to aid in the detection of premalignant and malignant conditions of the uterine cervix. It is not a diagnostic procedure and should not be used as the sole means of detecting cervical cancer. Both false-positive and false-negative reports do occur. . Performed By: #### 4 [id number] #### [facility] [address] [address] [address] Matias Shukla Performed by: Comment Normal [facility] Comment on above: Result Comment: Monika Prieto, Metal Bonding Helper (ASCP) Performed By: #### 4 [id number] #### [facility] [address] [place] [address] Dr. Matias Shkula Reflex Criteria: Comment Normal [facility] Comment on above: Result Comment: The HPV DNA reflex criteria were not met with this specimen result therefore, no HPV testing was performed. . Performed By: #### 4 [id number] #### [facility] [address] [address] [address] Matias Shukla Specimen adequacy: Comment Normal [facility] Comment on above: Result Comment: Sati sfactory for evaluation. Endocervical and/or squamous metaplastic cells (endocervical component) are present. Performed By: #### 4 [id number] #### [facility] [address] [place] [address] Dr. Matias Shukla MUMPS IGG BLDon 02-07-2022 MUMPS IGG 1.14 Normal [facility] Comment on above: Result Comment: RAN IN TRIPLICATE NORMAL RANGES: < OR = 0.9O NEGATIVE ; NO DETECTABLE IgG ANTIBODY TO MUMPS 0.91 - 1.09 EQUIVOCAL; REPEAT TESTING SUGGESTED > OR = 1.10 POSITIVE ; INDICATES PRESENCE OF DETECTABLE IgG ANTIBODY TO MUMPS Performed By: #### 1 0055, [id number], 06554, 70916 #### [facility] [address] [facility] [place] [address], [facility] [place] RUBELLAon 02-07-2022 RUBELLA 1.73 Normal [facility] Comment on above: Result Comment: NORM AL RANGES: < OR = 0.9O NEGATIVE ; NO DETECTABLE IgG ANTIBODY TO RUBELLA 0.91 - 1.09 EQUIVOCAL; REPEAT TESTING SUGGESTED > OR = 1.10 POSITIVE ; INDICATES PRESENCE OF DETECTABLE IgG ANTIBODY TO RUBELLA VIRUS Performed By: #### 1 0055, 71735, 58493, 82409 #### [facility] [address] [facility] [address], [facility] [place] RUBEOLA MEASLES IGGon 2021 RUBEO IGG 4.62 Normal [facility] Comment on above: Result Comment: NORM AL RANGES: < OR = 0.9O NEGATIVE ; NO DETECTABLE IgG ANTIBODY TO RUBEOLA 0.91 - 1.09 EQUIVOCAL; REPEAT TESTING SUGGESTED > OR = 1.10 POSITIVE ; INDICATES PRESENCE OF DETECTABLE IgG ANTIBODY TO RUBEOLA Performed By: #### 1 0055, 17317, [id number], 57564 #### [facility] [address] TB QUANTIFERON PLUSon 2021 MITOGEN MINUS NIL 8.15 IU/mL Normal [facility] Comment on above: Performed By: #### 3 1592 #### [facility] [address] NIL 0.03 IU/mL Normal [facility] Comment on above: Performed By: #### 3 1592 #### [facility] [address] TB QUANTIFERON Negative Normal NEGATIVE [facility] Comment on above: Result Comment: Eric tiferon TB Gold Interpretation (IU/mL): NEGATIVE: M. tuberculosis infection not likely. Nil: <=8.0 TB1 Antigen minus Nil ([id number]): <0.35 OR >=0.35; and <25% of Nil value. TB2 Antigen minus Nil ([id number]-NXG): <0.35 OR >=0.35; and <25% of Nil [...] (https://www.cdc.gov/tb/publications/guidlines/default.htm Performed By: #### 3 1592 #### [facility] [address] TB1 AG 0.03 IU/mL Normal [facility] Comment on above: Performed By: #### 3 1592 #### [facility] [address] TB1 AG MINUS NIL 0.00 IU/mL Normal [facility] Comment on above: Performed By: #### 3 1592 #### [facility] [address] TB2 AG 0.04 IU/mL Normal [facility] Comment on above: Performed By: #### 3 1592 #### [facility] [address] TB2 AG MINUS NIL 0.01 IU/mL Normal [facility] Comment on above: Performed By: #### 3 1592 #### [facility] [address] VARICELLA ZOSTER IGGon 02-07 VARICELLA IGG 2.60 Normal [facility] Comment on above: Result Comment: NORM AL RANGES: < OR = 0.9O NEGATIVE ; NO DETECTABLE IgG ANTIBODY TO VARICELLA-ZOSTER VIRUS 0.91 - 1.09 EQUIVOCAL; REPEAT TESTING SUGGESTED > OR = 1.10 POSITIVE ; INDICATES PRESENCE OF DETECTABLE IgG ANTIBODY TO VARICELLA-ZOSTER VIRUS Performed By: #### 1 0055, 79652, 77004, 32417 #### [facility] [address] HPV DNA High Riskon 08-19-19 22 HPV Interp Normal [facility] Comment on above: Result Comment: This test [...] purposes. Performed By: #### H PVH #### [address] [address] Billing And Accounting Staff Assistant: Rickey Watson MD HPV Type 16 Not detected Normal [facility] Comment on above: Performed By: #### H PVH #### [address] [address] Billing And Accounting Staff Assistant: Rickey Watson MD HPV Type 18 Not detected Normal [facility] Comment on above: Performed By: #### H PVH #### [address] [address] Billing And Accounting Staff Assistant: Rickey Watson MD Other High Risk HPV Not detected Normal [facility] Comment on above: Performed By: #### H PVH #### [address] [address] Billing And Accounting Staff Assistant: Rickey Watson MD HPV DNA High Riskon 08-18-19 Source .GENITAL - NOT SPECIFIED Normal [facility] Comment on above: Performed By: #### H PVH #### [address] [address] Billing And Accounting Staff Assistant: Rickey Watson MD HPV Sample .THIN PREP Normal [facility] Comment on above: Performed By: #### H PVH #### [address] [address] Billing And Accounting Staff Assistant: Rickey Watson MD Chlamydia/GC DNA, TPon 08-10 Chlamydia Probe, TP Negative Normal NEG [facility] Comment on above: Result Comment: CHLA MYDIA [...] Performed By: #### C YTCGP #### [address] [id number] Billing And Accounting Staff Assistant: Rickey Watson MD Gonorrhea Probe, TP Negative Normal NEG [facility] Comment on above: Result Comment: NEIS SERIA [...] Performed By: #### C YTCGP #### [address] [id number] Billing And Accounting Staff Assistant: Rickey Watson MD Cytologyon 08-08-2021 Cytology (NOTE) INTERPRETATION Cervical material, (ThinPrep vial, Imaging-assisted review): Specimen Adequacy: Satisfactory for evaluation. - Endocervical/transfor mation zone component present. - Scant cellularity. Descriptive Diagnosis: Atypical squamous cells of undetermined significance (ASC-US). Metal Bonding Helper: AMANDA Michaels M.D. Electronically Signed Out rdd/08/18/2021 Amendments Originally Reported As: Procedure/Addendum Source: Clinical History LMP: Patient Name: [facility] Rec: Path Number: Fax: Normal [facility] Comment on above: Performed By: #### P PPVP #### [address] [id number] Billing And Accounting Staff Assistant: Rickey Watson MD QuantiFERON TBon 12-24-2020 Quanti Binu minus NIL 8.10 IU/mL Normal [facility] Comment on above: Performed By: #### R UBI, LUIZ, MARITZA, VZI #### [facility] [address] [place], [place] [id number] Billing And Accounting Staff Assistant: Rickey Watson MD #### AQF #### [facility] [address] [place] [address] Billing And Accounting Staff Assistant: Mark Grossman MD Quanti TB Gold Plus Negative Normal Negative [facility] Comment on above: Result Comment: (NOT E) [...] Mycobacterium tuberculosis Infection --- [place], 2010 (http://www.cdc.gov/mmwr/preview/mmwrhtml/av2359k1.htm), for more information concerning test performance in low-prevalence populations and use in occupational screening. Performed By: #### R UBI, LUIZ, MARITZA, VZI #### [facility] [address] [place], [place] [id number] Billing And Accounting Staff Assistant: Rickey Watson MD #### AQF #### [facility] [address] [place] [address] Billing And Accounting Staff Assistant: Mark Grossman MD Quanti TB1 minus NIL 0.00 IU/mL Normal 0.00-0.34 [facility] Comment on above: Performed By: #### R UBI, LUIZ, MARITZA, VZI #### [address] [address] Billing And Accounting Staff Assistant: Rickey Watson MD #### AQF #### [address] [address] Billing And Accounting Staff Assistant: Mark Grossman MD Quanti TB2 minus NIL 0.01 IU/mL Normal 0.00-0.34 [facility] Comment on above: Performed By: #### R UBI, LUIZ, MARITZA, VZI #### [place] [address] Billing And Accounting Staff Assistant: Rickey Watson MD #### AQF #### [address] [address] Billing And Accounting Staff Assistant: Mark Grossman MD QuantiFERON NIL 0.01 IU/mL Normal [facility] Comment on above: Result Comment: (NOT E) Performed By: [facility] [address] [place] [address] Traffic Maintenance Officer: Carolyn Wei MD Performed By: #### R UBI, LUIZ, MARITZA, VZI #### [place] [address] Billing And Accounting Staff Assistant: Rickey Watson MD #### AQF #### [address] [address] Billing And Accounting Staff Assistant: Mark Grossman MD Measles (Rubeola) Imon 12-22 Measles (Rubeola) Im 3.68 Normal >1.09 [facility] Comment on above: Result Comment: Interpretation: IMMUNE Reference Range: <0.91 Not Immune 0.91-1.09 Equivocal >1.09 Immune Performed By: #### R UBI, LUIZ, MARITZA, VZI #### [address] [id number] Billing And Accounting Staff Assistant: Rickey Watson MD #### AQF #### [facility] [address] [place], [place] [id number] Billing And Accounting Staff Assistant: Mark Grossman MD Mumps,Immun,Abon 12-22-2020 Mumps,Immun,Ab 1.16 Normal >1.09 [facility] Comment on above: Result Comment: Interpretation: IMMUNE Reference Range: <0.91 Not Immune 0.91-1.09 Equivocal >1.09 Immune Performed By: #### R UBI, LUIZ, MARITZA, VZI #### [address] [id number] Billing And Accounting Staff Assistant: Rickey Watson MD #### AQF #### [address] [id number] Billing And Accounting Staff Assistant: Mark Grossman MD VZ Immunityon 12-22-2020 VZ Immunity 2.24 Normal >1.09 [facility] Comment on above: Result Comment: Interpretation: IMMUNE Reference Range: <0.91 Not Immune 0.91-1.09 Equivocal >1.09 Immune Performed By: #### R UBI, LUIZ, MARITZA, VZI #### [place] [address] Billing And Accounting Staff Assistant: Rickey Watson MD #### AQF #### [address] [id number] Billing And Accounting Staff Assistant: Mark Grossman MD Rubella Ab, IgGon 12-21-2020 Rubella Ab, IgG 16.2 IU/mL Normal [facility] Comment on above: Result Comment: REFERENCE RANGE: <5.0 NON-REACTIVE (non-immune) 5.0 TO 9.9 EQUIVOCAL >=10.0 REACTIVE (immune) Performed By: #### R UBI, LUIZ, MARITZA, VZI #### [address] [address] Billing And Accounting Staff Assistant: Rickey Watson MD #### AQF #### [facility] [address] [address] Billing And Accounting Staff Assistant: Mark Grossman MD Rubella antibody, IgGOrdered By: Jimmy Meehan on 12-21-2020 Rubella virus IgG Ql (S) 16.2 IU/mL [facility] Phone: Comment on above: REFERENCE RANGE: <5.0 NON-REACTIVE (non-immune) 5.0 TO 9.9 EQUIVOCAL >=10.0 REACTIVE (immune) [facility] Phone: Lab - Toxicology Resultson 0 03-11-2020 Lab - Toxicology Results [id number] Normal [facility] QuantiFERON TB Gold (In Tube ) LCon 03-08-2020 QuantiFERON Criteria LC Comment [facility] Comment on above: Result Comment: The QuantiFERON-TB Gold Plus result is determined by subtracting the Nil value from either TB antigen (Ag) tube. The mitogen tube serves as a control for the test. Performed By: #### 4 [id number], [id number] #### [facility] (DEFAULT) [address] [place] [address] QuantiFERON M. tuberculosis1 Ag Value LC 0.09 IU/mL [facility] Comment on above: Performed By: #### 4 [id number], [id number] #### [facility] (DEFAULT) [address] [place] [address] QuantiFERON M. tuberculosis2 Ag Value LC 0.08 IU/mL [facility] Comment on above: Performed By: #### 4 [id number], [id number] #### [facility] (DEFAULT) [address] [place] [address] QuantiFERON Mitogen Value LC >10.00 [facility] Comment on above: Result Comment: Perf ormed At: [facility] [address] [place] [id number] Kat Arevalo PhD Ph:[phone] Performed By: #### 4 [id number], [id number] #### [facility] (DEFAULT) [address] [place] [address] QuantiFERON Nil Value LC 0.01 IU/mL [facility] Comment on above: Performed By: #### 4 [id number], [id number] #### [facility] (DEFAULT) [address] [place] [address] QuantiFERON-TB Gold Plus LCo n 03-08-2020 QuantiFERON-TB Gold Plus LC Negative Negative [facility] Comment on above: Result Comment: Perf ormed At: [address] [id number] Kat Arevalo PhD Ph:[phone] Performed By: #### 4 [id number], [id number] #### [facility] (DEFAULT) [address] [place] [address] QuantiFERON Incubation LC Incubation performed. [facility] Comment on above: Result Comment: Perf ormed At: [address] [id number] Kat Arevalo PhD Ph:[phone] Performed By: #### 4 [id number], [id number] #### [facility] (DEFAULT) [address] [place] [address] HBSab Qnt LCon 03-05-2020 Hep B Surf Ab Quant LC 145.6 mIU/mL Immunity>9.9 [facility] Comment on above: Result Comment: Stat us of Immunity Anti-HBs Level Inconsistent with Immunity 0.0 - 9.9 Consistent with Immunity >9.9 Performed At: [address] [id number] Kat Arevalo PhD Ph:[phone] Performed By: #### 1 [id number], [id number] #### [facility] (DEFAULT) [address] [place], [place] [id number] Measles/Mumps/Rubella Immuni ty LCon 03-05-2020 Mumps Abs, IgG LC 69.5 AU/mL Immune >10.9 [facility] Comment on above: Result Comment: Nega tive <9.0 Equivocal 9.0 - 10.9 Positive >10.9 A positive result generally indicates past exposure to Mumps virus or previous vaccination. Performed At: [address] [id number] Kat Arevalo PhD Ph:[phone] Performed By: #### 1 [id number], [id number] #### [facility] (DEFAULT) [address] [place] [address] Rubella Antibodies, IgG LC 1.75 index Immune >0.99 [facility] Comment on above: Result Comment: Non- immune <0.90 Equivocal 0.90 - 0.99 Immune >0.99 Performed By: #### 1 [id number], [id number] #### [facility] (DEFAULT) [address] [place] [address] Rubeola Ab, IgG, EIA LC >300.0 Immune >16.4 [facility] Comment on above: Result Comment: Nega tive <13.5 Equivocal 13.5 - 16.4 Positive >16.4 Presence of antibodies to Rubeola is presumptive evidence of immunity except when acute infection is suspected. Performed By: #### 1 [id number], [id number] #### [facility] (DEFAULT) [address] [place] [address] Nicotine Metabolite, Urine L Con 03-05-2020 Cotinine LC Negative Yvnzhn=[id number] [facility] Comment on above: Result Comment: Perf ormed At: [facility] [address] [place], [place] [id number] Jose Schwartz PhD Ph:[phone] Performed By: #### 1 [id number] #### [facility] (DEFAULT) [address] [place] [address] Vital Signs Date Time Vital Sign Value Performing Clinician Susy ramon 05-08-2024 09:31-0400 Body mass index (BMI) [Ratio] 38.59 kg/m2 Suri LORENZO Work Phone: [facility] 05-08-2024 09:31-0400 Body weight 95.71 kg Suri LORENZO Work Phone: [facility] 05-08-2024 09:31-0400 Diastolic blood pressure 78 mm[Hg] Suri LORENZO Work Phone: [facility] Healthcare 05-08-2024 09:31-0400 Systolic blood pressure 120 mm[Hg] Suri LORENZO Work Phone: [facility] Healthcare Encounters Encounter Date Encounter Type Care Provider Facility Start: 05-08-2024 End: 05-08-2024 Bamboo flowsheet Suri LORENZO Work Phone: [facility] Start: 05-08-2024 End: 05-08-2024 Bamboo flowsheet Suri LORENZO Work Phone: [facility] Start: 05-08-2024 End: 05-08-2024 flow sheet Suri LORENZO Work Phone: [facility] Comment on above: 28 weeks gestation o f ; Third trimester ; size inconsistent with dates Start: 05-08-2024 End: 05-08-2024 ambulatory SURI CANALES Not Available Start: 05-01-2024 End: 05-01-2024 [facility] Result Encounter Jasiel Deshaun DO Work Phone: [facility] External Department Unsolicited Start: 05-01-2024 End: 05-01-2024 [facility] Result Encounter Jasiel Deshaun DO Work Phone: [facility] External Department Unsolicited Start: 04-17-2024 End: 04-17-2024 ambulatory JASIEL DESHAUN Not Available Start: 04-10-2024 End: 04-10-2024 ambulatory JASIEL R DESHAUN [facility] Start: 03-13-2024 End: 03-13-2024 ambulatory SURI PARKER Not Available Start: 02-13-2024 End: 02-13-2024 ambulatory JASIEL DESHAUN Not Available Start: 01-17-2024 End: 01-17-2024 ambulatory JASIEL DESHAUN Not Available Start: 08-22-2023 End: 08-22-2023 ambulatory JASIEL DESHAUN Not Available Start: 07-04-2023 End: 07-04-2023 ambulatory JASIEL DESHAUN Not Available Start: 08-21-2022 End: 08-21-[address] [facility]LLAMY [facility] Facility: Start: 08-08-2021 End: 08-09-2021 ambulatory SHANTELLE HDEZ [facility] Start: 12-21-2020 End: 12-22-2020 ambulatory JIMMY MEEHAN [facility] Start: 12-21-2020 End: 12-21-2020 Subsequent hospital visit by physician Shantelle Dean PA-C Work Phone: [facility] Start: 03-18-2020 End: 03-18-2020 Subsequent hospital visit by physician Shantelle [place] [facility] Procedures Date Procedure Procedure Detail Performing Clinician Start: 05-08-2024 Urnls dip stick/tabl et rgnt non-auto w/o micrscp Suri LORENZO Work Phone: Start: 05-01-2024 GLUCOSE TOLERANCE 3 HOUR Jasiel Meade DO Work Phone: Start: 12-21-2020 Antibody rubella Ebony Meehan MD Work Phone: Plan of Treatment Date Care Activity Detail Author Start: 02-26-2027 DTaP/Tdap/Td vaccine (7 - Td) DTaP/Tdap/Td vaccine (7 - Td) [place], [place] Start: 08-25-2024 End: 08-25-2024 Patient encounter procedure 08/25/2024 9:00 AM EST Office Visit [facility] [address] [place] [address] Jasiel Meade DO [address], [facility] Start: 05-22-2024 End: 05-22-2024 Patient encounter procedure 05/22/2024 9:50 AM EDT Routine [facility] [address] [place] [address] Jasiel Meade DO [address] [place] [address] [facility] Start: 05-22-2024 End: 05-22-2024 Professional / ancillary services management 05/22/2024 9:00 AM EDT Ancillary Procedure [facility] [address] [place] [id number] [facility] Start: 05-08-2024 End: 05-08-2025 US for US OB SCAN FOR GROWTH Imaging Routine size inconsistent with dates Expected: 05/08/2024 (Approximate), Expires: 05/08/2025 [facility] Healthcare Work Phone: Comment on above: Expected: 05/08/2024 (Approximate), Expires: 05/08/2025 Start: 05-08-2024 End: 05-08-2024 Patient encounter procedure [facility] Comment on above: Arrived Start: 03-30-2024 Influenza vaccination Influenza Vacc ine (#1) [facility] Start: 03-18-2023 Screening for malign ant neoplasm of cervix [facility] Start: 06-12-2021 Screening for malign ant neoplasm of cervix Cervical cancer screen [place] Start: 03-30-2021 Influenza vaccination Flu vacc ine (Season Ended) [facility]: Start: 03-30-2020 Influenza vaccination Flu vaccine (# 1) [place] Start: 06-12-2019 Screening for Chlamy flaco trachomatis Chlamydia screen [place] Start: 09-13-2011 Hepatitis A vaccine (2 of 2 - 2-dose series) Hepatitis A vaccine (2 of 2 - 2-dose series) [place], [place] Start: 2007 COVID-19 Vaccine (1) COVID-19 Vaccin e (1) [facility] Phone: Start: 1995 Hepatitis C screening Hepatitis C sc reen [facility] Phone: End: 12-21-2020 Mumps Antibody, IgG Mumps Antibody, IgG Lab Routine Once for 1 Occurrences starting 12/21/2020 until 12/21/2020 [facility] Phone: Comment on above: Once for 1 Occurrenc es starting 12/21/2020 until 12/21/2020 Mumps Antibody, IgG Mumps Antibo dy, IgG Lab Routine 12/21/2020 4:27 PM EDT [facility] Phone: End: 12-21-2020 Quantiferon TB Gold Quantiferon TB Gold Microbiology Routine Once for 1 Occurrences starting 12/21/2020 until 12/21/2020 [facility] Phone: Comment on above: Once for 1 Occurrenc es starting 12/21/2020 until 12/21/2020 Quantiferon TB Gold Quantiferon TB Gold Microbiology Routine 12/21/2020 4:27 PM EDT [facility] Phone: End: 12-21-2020 Rubeola Antibody, IgG Rubeola Antibody, IgG Lab Routine Once for 1 Occurrences starting 12/21/2020 until 12/21/2020 [facility] Phone: Comment on above: Once for 1 Occurrenc es starting 12/21/2020 until 12/21/2020 Rubeola Antibody, IgG Rubeola An tibody, IgG Lab Routine 12/21/2020 4:27 PM EDT [facility] Phone: End: 12-21-2020 Varicella Zoster Antibody, IgG Varicella Zoster Antibody, IgG Lab Routine Once for 1 Occurrences starting 12/21/2020 until 12/21/2020 [facility] Phone: Comment on above: Once for 1 Occurrenc es starting 12/21/2020 until 12/21/2020 Varicella Zoster Antibody, IgG Varicella Zoster Antibody, IgG Lab Routine 12/21/2020 4:27 PM EDT [facility] Phone: Immunizations Immunization Date Immunization Notes Care Provider [facility] 06-28-2021 influenza virus vacc ine, unspecified formulation Jasiel Deshaun DO Work Phone: [facility] 03-09-2020 tuberculin skin test ; purified protein derivative solution, intradermal [facility] [place] 04-28-2019 influenza, injectabl e, quadrivalent, preservative free [facility] 06-12-2018 influenza, injectabl e, quadrivalent, preservative free [facility] 05-01-2018 tuberculin skin test ; purified protein derivative solution, intradermal [facility] 09-12-2017 hepatitis B vaccine, adult dosage [facility] 04-13-2017 Human Papillomavirus 9-valent vaccine [facility] 04-10-2017 hepatitis B vaccine, adult dosage [facility] 03-07-2017 hepatitis B vaccine, adult dosage [facility] 03-07-2017 meningococcal polysaccharide (groups A, C, Y and W-135) diphtheria toxoid conjugate vaccine (MCV4P) [facility] 03-07-2017 tuberculin skin test ; purified protein derivative solution, intradermal [facility] 02-26-2017 tetanus toxoid, redu juve diphtheria toxoid, and acellular pertussis vaccine, adsorbed [facility] 02-26-2017 tuberculin skin test ; purified protein derivative solution, intradermal [facility] 08-13-2014 Human Papillomavirus 9-valent vaccine [facility] 04-01-2014 meningococcal polysaccharide (groups A, C, Y and W-135) diphtheria toxoid conjugate vaccine (MCV4P) [facility] 02-10-2014 Human Papillomavirus 9-valent vaccine [place], [place] Payers Date Payer Category Payer Unknown [employer] [id number] 2022-Present [address] [place] [address] [id number] 2022 Unknown [id number] 2021 Unknown [id number] 2016 Private Health Insurance SHIV FIERRO [id number] 2016-Present [phone] [address] [place] [address] [id number] 1995 Unknown [id number] 75 1995 Unknown [id number] 93 1995 Unknown [id number] 286 1995 Unknown [id number] 259 1995 Unknown [id number] 259 1995 Unknown [id number] 259 1995 Unknown [id number] 259 1995 Unknown [id number] 259 1995 Unknown [id number] 259 1995 Unknown [id number] 259 1959 Unknown [id number] Social History Date Type Detail Facility Start: 03-18-2020 End: 01-17-2024 Tobacco smoking status NHIS Never smoker [facility] Start: 03-18-2020 End: 01-17-2024 Tobacco use and exposure Never used [facility] Start: 02-05-2017 Alcohol Comment rarely [facility] Sex Assigned At Not on file [facility] Start: 1995 Sex Assigned At Female [facility] Work Phone: Start: 04-17-2024 End: 05-08-2024 Alcoholic beverage intake Ex-drinker (finding) [facility] Start: 01-17-2024 End: 04-17-2024 Alcoholic beverage intake [facility] Start: 01-17-2024 Tobacco use panel [facility] Start: 11-04-2023 [facility] Start: 02-20-2023 Gender identity Identifies as female gender (finding) [facility] Start: 02-20-2023 Sexual orientation Heterosexual (finding) [facility] History of Present illness Narrative 05-08-2024 BJ Garcia - 05/08/2024 9:30 AM EDT Note Date & Type Note Facility 05-08-2024 History of Presen t illness Narrative Reason for Appointment: Patient ID: Holli Jenkins is a 28 y.o. female who presents for Routine Visit Patient presents today for Return OB appointment. MEDICATIONS Current Outpatient Medications Medication Instructions magnesium oxide (MAG-OX) 400 mg, Oral, Daily RT ALLERGIES No Known Allergies PROBLEMS Active Ambulatory Problems Diagnosis Date Noted Vaginal pain 08/20/2023 Resolved Ambulatory Problems Diagnosis Date Noted No Resolved Ambulatory Problems Past Medical History: Diagnosis Date GDM (gestational diabetes mellitus) Headache History of miscarriage HISTORY PAST MEDICAL HISTORY SOCIAL HISTORY Past Medical History: Diagnosis Date GDM (gestational diabetes mellitus) Headache History of miscarriage Social History Tobacco Use Smoking status: Never Smokeless tobacco: Never Substance Use Topics Alcohol use: Not Currently Alcohol/week: 1.0 standard drink of alcohol Types: 1 Glasses of wine per week Drug use: Never FAMILY HISTORY Family History Problem Relation Name Age of Onset Diabetes Father Preston Hypertension Father Preston SURGICAL HISTORY Past Surgical History: Procedure Laterality Date PAP SMEAR 02/2020 negaitve REVIEW OF SYSTEMS Review of Systems: Review of Systems Constitutional: Negative. HENT: Negative. Eyes: Negative. Respiratory: Negative. Cardiovascular: Negative. Gastrointestinal: Negative. Genitourinary: Negative. Musculoskeletal: Negative. Skin: Negative. Neurological: Negative. All other systems reviewed and are negative. Hematological: Negative. Endocrine: Negative. Allergic/Immunologic: Negative. OBJECTIVE Objective: Physical Exam Constitutional: Appearance: Normal appearance. She is well-developed and normal weight. HENT: Head: Normocephalic. Cardiovascular: Rate and Rhythm: Normal rate and regular rhythm. Pulses: Normal pulses. Pulmonary: Effort: Pulmonary effort is normal. Breath sounds: Normal breath sounds. Abdominal: General: Bowel sounds are normal. There is no distension. Palpations: Abdomen is soft. Tenderness: There is no abdominal tenderness. There is no guarding or rebound. Musculoskeletal: General: No swelling. Normal range of motion. Right lower leg: No edema. Left lower leg: No edema. Neurological: General: No focal deficit present. Mental Status: She is alert and oriented to person, place, and time. Skin: General: Skin is warm and dry. Psychiatric: Mood and Affect: Mood normal. Behavior: Behavior normal. Thought Content: Thought content normal. Judgment: Judgment normal. Vitals and nursing note reviewed. Exam conducted with a medical file clerk present. Vitals: Estimated body mass index is 38.59 kg/m as calculated from the following: Height as of 03/22/23: 5' 2 . Weight as of this encounter: 211 lb. BP: 120/78 Patient's last menstrual period was 10/21/2023. ASSESSMENT & PLAN ICD-10-CM 1. 28 weeks gestation of Z3A.28 POCT urinalysis dipstick manually resulted 2. Third trimester Z34.93 POCT urinalysis dipstick manually resulted Return OB: Patient presents today for a routine obstetrics appointment. Patient is currently 28w4d . Patient states she is doing well but has complaints of being tired due to current . Patient has verbalizes frequent movement. labor precautions was discussed/given and patient was instructed to perform kick counts three times a day. Patient blood sugar log reviewed, most within normal limts, couple one hour post prandal elevation at lunch. Pt will continue to monitor, growth US given Orders Placed This Encounter Procedures POCT urinalysis dipstick manually resulted Follow Up: Patient is to return to office in 2 week for routine OB appointment. 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 DATE CREATED AUTHOR AUTHOR'S ORGANIZ ATION 04/12/2024 [facility] DATE CREATED AUTHOR AUTHOR'S ORGANIZ ATION 05/10/2024 [facility] [employer] Care Teams (unrecognized sec tion and content) Operations Supervisor 2Nd Shift Relationship Specialty [place] [address] [place] [address] PCP - General Family Medicine 03/22/23 Operations Supervisor 2Nd Shift Relationship Specialty [place] [address] [place] [address] PCP - General Family Medicine 03/22/23 Reason for Visit (unrecogniz ed section and content) Reason Comments Routine Visit FOR RECORDS PERTAINING TO PATIENTS WHO ARE [...] BE BASED ON THE PRIMARY CLINICAL RECORDS. [facility] [employer] [facility]. provides no warranty or guarantee of the accuracy or completeness of information in this document.
== END 2024-05-22 09:16 | disposition home or self-care (01) ==
LOC: NOMS 09:15
PROVIDERS: Visit Provider Physician Assistant
DX: O26.843 Uterine size-date discrepancy, third trimester (principal); Z3A.30 30 weeks gestation of pregnancy
CPT/HCPCS: 76816

== ENCOUNTER 2024-06-02 08:42 | Outpatient (OUT) | payer OTHER, SELFPAY ==
[2024-06-02 17:24] VITALS: BP 114/60; PULSE 90
== END 2024-06-02 17:57 | disposition home or self-care (01) ==
LOC: FBCO 08:42 → FBC 17:16
PROVIDERS: Visit Provider Obstetrics & Gynecology
DX: O47.03 False labor before 37 completed weeks of gestation, third trimester (principal)
CPT/HCPCS: 59025

== ENCOUNTER 2024-06-05 07:03 | Outpatient (OUT) | payer OTHER, SELFPAY ==
--- OUTSIDE RECORDS SUMMARY | 2024-06-05 07:05 | XMS_ITS | CCD ---
Author Organization [facility] Care Team Providers Care Operating Room Tech Name Role Phone Shantelle Dean Primary Care Provider [phone] JIMMY MEEHAN Referring Unavailable SHANTELLE DEAN Primary Care Unavailable SHANTELLE DEAN Referring Unavailable SHANTELLE DEAN Primary Care Unavailable ROGELIO, DR BELLAMY Primary Care Unavailable DESHAUN, DR WEATHERS Attending Unavailable DESHAUN, DR WEATHERS Consulting Unavailable DESHAUN, DR WEATHERS Admitting Unavailable JASIEL MEADE R Referring Unavailable Shantelle Dean MD Primary Care Provider Suri Johnson Unavailable JASIEL MEADE Attending Unavailable JASIEL MEADE Attending Unavailable JASIEL MEADE Attending Unavailable SURI CANALES Attending Unavailable JASIEL MEADE Attending Unavailable SURI CANALES Attending Unavailable JASIEL MEADE Attending Unavailable Medications Current Medications Medication Drug Class(es) Dates Sig (Normalized) Sig (Original) etonogestrel 68 mg drug implant (2 sources) Progestin etonogestrel (NEXPLANON) 68 MG implant 68 mg by Subdermal route once 0 Active magnesium oxide 400 mg oral tablet (7 sources) take 1 tablet by mouth in the morning magnesium oxide (Mag-Ox) 400 MG tablet Take 400 mg by mouth in the morning. 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] Onset: 04-28-2019 04-28-2019 Chronic Diabetes or abnormal glucose tolerance complicating ; childbirth; or the puerperium (2 sources) Gestational diabetes mellitus; Translations: [Gestational diabetes mellitus in , unspecified control] 05-22-2024 Episodic Immunizations and screening for infectious disease (1 source) Encounter for screening for human papillomavirus (HPV); Translations: [ENC SCREENING HUMAN PAPILLOMAVIRUS] Onset: 08-23-2022 Episodic Other complications of (2 sources) size does not accord with dates; Translations: [Uterine size-date discrepancy, unspecified trimester] 05-08-2024 Episodic Other and delivery including normal (4 sources) Third trimester ; Translations: [Encounter for supervision of normal , unspecified, third trimester] 05-08-2024 Episodic Other screening for suspected conditions (not mental disorders or infectious disease) (5 sources) Encounter for screening for malignant neoplasm of cervix; Translations: [Encounter for other specified screening] Onset: 08-21-2022 Episodic Residual codes; unclassified (2 sources) Gestation period, 28 weeks; Translations: [28 weeks gestation of ] 05-08-2024 Episodic Residual codes; unclassified (2 sources) Gestation period, 30 weeks; Translations: [30 weeks gestation of ] 05-22-2024 Episodic Past or Other Problems Problem Classification Problem Date Documented Date Episodic/Chronic Abdominal pain (7 sources) Vaginal pain; Translations: [Pelvic and perineal [...] Range Facility Urinalysis macro (dipstick) panel (U)on 05-22-2024 Bilirubin, UA Negative Negative - 4(70) +++ mg/dL [facility] Blood, UA Negative Negative - 50 Bib/mcL [facility] Clarity, UA Clear [facility] Color, UA Yellow [facility] Glucose, UA Negative Negative - 2000(110) ++++ mg/dL [facility] Interpretation and review of laboratory results Abnormal [facility] Ketones, UA Negative Negative - 160(16) ++++ mg/dL [facility] Leukocytes, UA Positive Negative - 500+++ Alvaro/mcL [facility] Comment on above: small Nitrite, UA Negative Negative - Positive [facility] pH, UA 7 5 - 9 [facility] Protein, UA Negative Negative - 1999(20) ++++ mg/dL [facility] Spec Grav, UA 1.015 1 - 1.03 [facility] Urobilinogen, UA 0.2 0.2 - 12 mg/dL [facility] Urinalysis macro (dipstick) panel (U)on 05-08-2024 Bilirubin, UA Negative Negative - 4(70) +++ mg/dL [facility] Blood, UA Negative Negative - 50 Bib/mcL [facility] Clarity, UA Clear [facility] re Color, UA Yellow [facility] e Glucose, UA Negative Negative - 1999(110) ++++ mg/dL [facility] Interpretation and review of laboratory results Abnormal [facility] Ketones, UA Negative Negative - 160(16) ++++ mg/dL [facility] Leukocytes, UA Positive Negative - 500+++ Alvaro/mcL [facility] Comment on above: small Nitrite, UA Negative Negative - Positive [facility] pH, UA 7.0 5 - 9 [facility] Protein, UA Negative Negative - 1999(20) ++++ mg/dL [facility] Spec Grav, UA 1.020 1 - 1.03 [facility] Urobilinogen, UA 0.2 0.2 - 12 mg/dL [facility] GLUCOSE TOLERANCE 3 HOURon 1 GLUCOSE TOLERANCE 3 HOUR High mg/dL [facility] Comment on above: GLU FAST 97H (<95) C ol: 05/01/24 0722 GLU 1HR 173 (<180) Col: 05/01/24 0823 GLU 2HR 162H (<155) Col: 05/01/24 0924 GLU 3HR 114 (<140) Col: 05/01/24 1022 Interpretation and review of laboratory results Abnormal [facility] PAP ACOG PANEL 2: 21 to 29on 08-25-2022 . . Normal [facility] Comment on above: Performed By: #### 4 [id number] #### [facility] [address] [place] [address] Dr. Matias Shukla Age Gdln ACOG Testing 21-29 [facility] Comment on above: Performed By: #### 4 [id number] #### [facility] [address] [place] [address] Dr. Matias Shukla DIAGNOSIS: Comment Normal [facility] Comment on above: Result Comment: NEGA TIVE FOR INTRAEPITHELIAL LESION OR MALIGNANCY. Performed By: #### 4 [id number] #### [facility] [address] [place] [address] Dr. Matias Shukla Methodology: Comment [facility] Comment on above: Result Comment: This liquid based ThinPrep(R) pap test was screened with the use of an image guided system. Performed By: #### 4 [id number] #### [facility] [address] [place] [address] Dr. Matias Shukla Note: Comment [facility] Comment on above: Result Comment: The Pap smear is a screening test designed to aid in the detection of premalignant and malignant conditions of the uterine cervix. It is not a diagnostic procedure and should not be used as the sole means of detecting cervical cancer. Both false-positive and false-negative reports do occur. . Performed By: #### 4 [id number] #### [facility] [address] [place] [address] Dr. Matias Shukla Performed by: Comment Normal [facility] Comment on above: Result Comment: Monika Prieto, Body Wirer (ASCP) Performed By: #### 4 [id number] #### [facility] [address] [place] [address] Dr. Matias Shukla Reflex Criteria: Comment [facility] Comment on above: Result Comment: The HPV DNA reflex criteria were not met with this specimen result therefore, no HPV testing was performed. . Performed By: #### 4 [id number] #### [facility] [address] [place] [address] Dr. Matias Shulka Specimen adequacy: Comment Normal [facility] Comment on above: Result Comment: Sati sfactory for evaluation. Endocervical and/or squamous metaplastic cells (endocervical component) are present. Performed By: #### 4 [id number] #### [facility] [address] [place] [address] Dr. Matias Shukla MUMPS IGG BLDon 02-07-2022 MUMPS IGG 1.14 Normal [facility] Comment on above: Result Comment: RAN IN TRIPLICATE NORMAL RANGES: < OR = 0.9O NEGATIVE ; NO DETECTABLE IgG ANTIBODY TO MUMPS 0.91 - 1.09 EQUIVOCAL; REPEAT TESTING SUGGESTED > OR = 1.10 POSITIVE ; INDICATES PRESENCE OF DETECTABLE IgG ANTIBODY TO MUMPS Performed By: #### 1 0055, [id number], [id number], [id number] #### [facility] [address] [facility]. [address] RUBELLAon 02-07-2022 RUBELLA 1.73 Normal [facility] Comment on above: Result Comment: NORM AL RANGES: < OR = 0.9O NEGATIVE ; NO DETECTABLE IgG ANTIBODY TO RUBELLA 0.91 - 1.09 EQUIVOCAL; REPEAT TESTING SUGGESTED > OR = 1.10 POSITIVE ; INDICATES PRESENCE OF DETECTABLE IgG ANTIBODY TO RUBELLA VIRUS Performed By: #### 1 0055, 27705, [id number], [id number] #### [facility] [address] [facility]. [address] RUBEOLA MEASLES IGGon 2021 RUBEO IGG 4.62 Normal [facility] Comment on above: Result Comment: NORM AL RANGES: < OR = 0.9O NEGATIVE ; NO DETECTABLE IgG ANTIBODY TO RUBEOLA 0.91 - 1.09 EQUIVOCAL; REPEAT TESTING SUGGESTED > OR = 1.10 POSITIVE ; INDICATES PRESENCE OF DETECTABLE IgG ANTIBODY TO RUBEOLA Performed By: #### 1 0055, 19492, [id number], [id number] #### [facility] [address] [facility]. [address] TB QUANTIFERON PLUSon 2021 MITOGEN MINUS NIL 8.15 IU/mL Normal [facility] Comment on above: Performed By: #### 3 [id number] #### [facility] [address] [place] [address], [place] NIL 0.03 IU/mL Normal [facility] Comment on above: Performed By: #### 3 1592 #### [facility] [address] [place] [address], [place] TB QUANTIFERON Negative Normal NEGATIVE [facility] Comment on above: Result Comment: Eric tiferon TB Gold Interpretation (IU/mL): NEGATIVE: M. tuberculosis infection not likely. Nil: <=8.0 TB1 Antigen minus Nil ([id number]-JUF): <0.35 OR >=0.35; and <25% of Nil value. TB2 Antigen minus Nil (ES4XY-ETZ): <0.35 OR >=0.35; and <25% of Nil [...] (https://www.cdc.gov/tb/publications/guidlines/default.htm Performed By: #### 3 1592 #### [facility] [address] [facility] [place] [address], [place] TB1 AG 0.03 IU/mL Normal [facility] Comment on above: Performed By: #### 3 1592 #### [facility] [address] [place] [address], [place] TB1 AG MINUS NIL 0.00 IU/mL Normal [facility] Comment on above: Performed By: #### 3 1592 #### [facility] [address] [place] [address], [place] TB2 AG 0.04 IU/mL Normal [facility] Comment on above: Performed By: #### 3 1592 #### [facility] [address] [place], [place] [id number] [place] [address] TB2 AG MINUS NIL 0.01 IU/mL Normal [facility] Comment on above: Performed By: #### 3 1592 #### [facility] [address] [place], [place] [id number] [place] [address] VARICELLA ZOSTER IGGon 02-07 VARICELLA IGG 2.60 Normal [facility] Comment on above: Result Comment: NORM AL RANGES: < OR = 0.9O NEGATIVE ; NO DETECTABLE IgG ANTIBODY TO VARICELLA-ZOSTER VIRUS 0.91 - 1.09 EQUIVOCAL; REPEAT TESTING SUGGESTED > OR = 1.10 POSITIVE ; INDICATES PRESENCE OF DETECTABLE IgG ANTIBODY TO VARICELLA-ZOSTER VIRUS Performed By: #### 1 0055, 54666, 48683, 35642 #### [facility] [address] [place], [place] [id number] [place] [address] HPV DNA High Riskon 08-19-19 22 HPV Interp [facility] Comment on above: Result Comment: This [...] purposes. Performed By: #### H PVH #### [facility] [employer] [address] [place], [place] [id number] Plant Electrical Engineer: Rickey Watson MD HPV Type 16 Not detected Normal [facility] Comment on above: Performed By: #### H PVH #### [facility] [employer] [address] [place], [place] [id number] Plant Electrical Engineer: Rickey Watson MD HPV Type 18 Not detected Normal [facility] Comment on above: Performed By: #### H PVH #### [address] [address] Plant Electrical Engineer: Rickey Watson MD Other High Risk HPV Not detected Normal [facility] Comment on above: Performed By: #### H PVH #### [address] [address] Plant Electrical Engineer: Rickey Watson MD HPV DNA High Riskon 08-18-19 Source .GENITAL - NOT SPECIFIED Normal [facility] Comment on above: Performed By: #### H PVH #### [address] [address] Plant Electrical Engineer: Rickey Watson MD HPV Sample .THIN PREP Normal [facility] Comment on above: Performed By: #### H PVH #### [address] [address] Plant Electrical Engineer: Rickey Watson MD Chlamydia/GC DNA, TPon 08-10 Chlamydia Probe, TP Negative Normal [facility] Comment on above: Result Comment: CHLA [...] target. Performed By: #### C YTCGP #### [address] [address] Plant Electrical Engineer: Rickey Watson MD Gonorrhea Probe, TP Negative Normal [facility] Comment on above: Result Comment: NEIS [...] target. Performed By: #### C YTCGP #### [address] [address] Plant Electrical Engineer: Rickey Watson MD Cytologyon 08-08-2021 Cytology (NOTE) INTERPRETATION Cervical material, (ThinPrep vial, Imaging-assisted review): Specimen Adequacy: Satisfactory for evaluation. - Endocervical/transfor mation zone component present. - Scant cellularity. Descriptive Diagnosis: Atypical squamous cells of undetermined significance (ASC-US). Body Wirer: AMANDA Michaels M.D. Electronically Signed Out rdd08/18/2021 Amendments Originally Reported As: Procedure/Addendum Source: Clinical History LMP: Patient Name: [facility] Rec: Path Number: Fax: Normal [facility] Comment on above: Performed By: #### P PPVP #### [address] [address] Plant Electrical Engineer: Rickey Watson MD QuantiFERON TBon 12-24-2020 Quanti Binu minus NIL 8.10 IU/mL Normal [facility] Comment on above: Performed By: #### R UBI, LUIZ, MARITZA, VZI #### [address] [address] Plant Electrical Engineer: Rickey Watson MD #### AQF #### [facility] [address] [place] [address] Plant Electrical Engineer: Mark Grossman MD Quanti TB Gold Plus Negative Normal Negative [facility] Comment on above: Result Comment: (NOT [...] Mycobacterium tuberculosis Infection --- [place], 2010 (http://www.cdc.gov/mmwr/preview/mmwrhtml/sm1531t7.htm), for more information concerning test performance in low-prevalence populations and use in occupational screening. Performed By: #### R MARIA MILUIZ, MARITZA, VZI #### [employer] [address] [place] [address] Plant Electrical Engineer: Rickey Watson MD #### AQF #### [facility] [address] [place] [address] Plant Electrical Engineer: Mark Grossman MD Quanti TB1 minus NIL 0.00 IU/mL Normal 0.00-0.34 [facility] Comment on above: Performed By: #### R MARIA MILUIZ, MARITZA, VZI #### [facility] [address] [place] [address] [id number] Plant Electrical Engineer: Rickey Watson MD #### AQF #### [facility] [address] [place] [address] Plant Electrical Engineer: Mark Grossman MD Quanti TB2 minus NIL 0.01 IU/mL Normal 0.00-0.34 [facility] Comment on above: Performed By: #### R UBI LUIZ, MARITZA, VZI #### [employer] [address] [place] [address] [id number] Plant Electrical Engineer: Rickey Watson MD #### AQF #### [facility] [address] [place] [address] Plant Electrical Engineer: Mark Grossman MD QuantiFERON NIL 0.01 IU/mL Normal [facility] Comment on above: Result Comment: (NOT E) Performed By: [address] [address] Pantograph Machine Set Up Operator: Carolyn Wei MD Performed By: #### R UBI, LUIZ, MARITZA, VZI #### [address] [address] Plant Electrical Engineer: Rickey Watson MD #### AQF #### [address] [address] Plant Electrical Engineer: Mark Grossman MD Measles (Rubeola) Imon 12-22 Measles (Rubeola) Im 3.68 Normal >1.09 [facility] Comment on above: Result Comment: Interpretation: IMMUNE Reference Range: <0.91 Not Immune 0.91-1.09 Equivocal >1.09 Immune Performed By: #### R UBI, LUIZ, MARITZA, VZI #### [place] [address] Plant Electrical Engineer: Rickey Watson MD #### AQF #### [address] [address] Plant Electrical Engineer: Mark Grossman MD Mumps,Immun,Abon 12-22-2020 Mumps,Immun,Ab 1.16 Normal >1.09 [facility] Comment on above: Result Comment: Interpretation: IMMUNE Reference Range: <0.91 Not Immune 0.91-1.09 Equivocal >1.09 Immune Performed By: #### R UBI, LUIZ, MARITZA, VZI #### [place] [id number] Plant Electrical Engineer: Rickey Watson MD #### AQF #### [facility] [address] [place], [place] [id number] Plant Electrical Engineer: Mark Grossman MD VZ Immunityon 12-22-2020 VZ Immunity 2.24 Normal >1.09 [facility] Comment on above: Result Comment: Interpretation: IMMUNE Reference Range: <0.91 Not Immune 0.91-1.09 Equivocal >1.09 Immune Performed By: #### R UBI, LUIZ, MARITZA, VZI #### [address] [id number] Plant Electrical Engineer: Rickey Watson MD #### AQF #### [facility] [address] [place] [address] Plant Electrical Engineer: Mark Grossman MD Rubella Ab, IgGon 12-21-2020 Rubella Ab, IgG 16.2 IU/mL Normal [facility] Comment on above: Result Comment: REFERENCE RANGE: <5.0 NON-REACTIVE (non-immune) 5.0 TO 9.9 EQUIVOCAL >=10.0 REACTIVE (immune) Performed By: #### R UBI, LUIZ, MARITZA, VZI #### [address] [id number] Plant Electrical Engineer: Rickey Watson MD #### AQF #### [facility] [address] [place] [address] Plant Electrical Engineer: Mark Grossman MD Rubella antibody, IgGOrdered By: Jimmy Meehan on 12-21-2020 Rubella virus IgG Ql (S) 16.2 IU/mL [facility] Phone: Comment on above: REFERENCE RANGE: <5.0 NON-REACTIVE (non-immune) 5.0 TO 9.9 EQUIVOCAL >=10.0 REACTIVE (immune) [facility] Phone: Lab - Toxicology Resultson 0 03-11-2020 Lab - Toxicology Results [id number] [facility] QuantiFERON TB Gold (In Tube ) LCon 03-08-2020 QuantiFERON Criteria LC Comment Comment on above: Result Comment: The QuantiFERON-TB Gold Plus result is determined by subtracting the Nil value from either TB antigen (Ag) tube. The mitogen tube serves as a control for the test. Performed By: #### 4 [id number], [id number] #### [facility] (DEFAULT) [address] [place] [address] QuantiFERON M. tuberculosis1 Ag Value LC 0.09 IU/mL Comment on above: Performed By: #### 4 [id number], [id number] #### [facility] (DEFAULT) [address] [place] [address] QuantiFERON M. tuberculosis2 Ag Value LC 0.08 IU/mL Comment on above: Performed By: #### 4 [id number], [id number] #### [facility] (DEFAULT) [address] [place] [address] QuantiFERON Mitogen Value LC >10.00 Comment on above: Result Comment: Perf ormed At: [address] [id number] Kat Arevalo PhD Ph:[phone] Performed By: #### 4 [id number], [id number] #### [facility] (DEFAULT) [address] [place] [address] QuantiFERON Nil Value LC 0.01 IU/mL Comment on above: Performed By: #### 4 [id number], [id number] #### [facility] (DEFAULT) [address] [place] [address] QuantiFERON-TB Gold Plus LCo n 03-08-2020 QuantiFERON-TB Gold Plus LC Negative Negative Comment on above: Result Comment: Perf ormed At: [place] [id number] [place], [place] [id number] Kat Arevalo PhD Ph:[phone] Performed By: #### 4 [id number], [id number] #### [facility] (DEFAULT) [address] [place] [address] QuantiFERON Incubation LC Incubation performed. Comment on above: Result Comment: Perf ormed At: [address] [id number] Kat Arevalo PhD Ph:[phone] Performed By: #### 4 [id number], [id number] #### [facility] (DEFAULT) [address] [place] [address] HBSab Qnt LCon 03-05-2020 Hep B Surf Ab Quant LC 145.6 mIU/mL Immunity>9.9 Comment on above: Result Comment: Stat us of Immunity Anti-HBs Level Inconsistent with Immunity 0.0 - 9.9 Consistent with Immunity >9.9 Performed At: [address] [id number] Kat Arevalo PhD Ph:[phone] Performed By: #### 1 [id number], [id number] #### [facility] (DEFAULT) [address] [place] [address] Measles/Mumps/Rubella Immuni ty LCon 03-05-2020 Mumps Abs, IgG LC 69.5 AU/mL Immune >10.9 [facility] Comment on above: Result Comment: Nega tive <9.0 Equivocal 9.0 - 10.9 Positive >10.9 A positive result generally indicates past exposure to Mumps virus or previous vaccination. Performed At: [address] [id number] Kat Arevalo PhD Ph:[phone] Performed By: #### 1 [id number], [id number] #### [facility] (DEFAULT) [address] [place] [address] Rubella Antibodies, IgG LC 1.75 index Immune >0.99 Comment on above: Result Comment: Non- immune <0.90 Equivocal 0.90 - 0.99 Immune >0.99 Performed By: #### 1 [id number], [id number] #### [facility] (DEFAULT) [address] [place] [address] Rubeola Ab, IgG, EIA LC >300.0 Immune >16.4 Comment on above: Result Comment: Nega tive <13.5 Equivocal 13.5 - 16.4 Positive >16.4 Presence of antibodies to Rubeola is presumptive evidence of immunity except when acute infection is suspected. Performed By: #### 1 [id number], [id number] #### [facility] (DEFAULT) [address] [place] [address] Nicotine Metabolite, Urine L Con 03-05-2020 Cotinine LC Negative Bpcdhg=138 Comment on above: Result Comment: Perf ormed At: [facility] [place] [address] [place], [place] [id number] Jose Schwartz PhD Ph:[phone] Performed By: #### 1 [id number] #### [facility] (DEFAULT) [address] [place] [address] Vital Signs Date Time Vital Sign Value Performing Clinician Susy ramon 05-22-2024 09:57-0400 Body mass index (BMI) [Ratio] 39.1 kg/m2 Jasiel Deshaun DO Work Phone: [facility] 05-22-2024 09:57-0400 Body weight 96.98 kg Jasiel Deshaun DO Work Phone: [facility] 05-22-2024 09:57-0400 Diastolic blood pressure 72 mm[Hg] Jasiel Deshaun DO Work Phone: [facility] 05-22-2024 09:57-0400 Systolic blood pressure 110 mm[Hg] Jasiel Deshaun DO Work Phone: [facility] 05-08-2024 09:31-0400 Body mass index (BMI) [Ratio] 38.59 kg/m2 Suri LORENZO Work Phone: [facility] 05-08-2024 09:31-0400 Body weight 95.71 kg Suri LORENZO Work Phone: [facility] 05-08-2024 09:31-0400 Diastolic blood pressure 78 mm[Hg] Suri LORENZO Work Phone: [facility] 05-08-2024 09:31-0400 Systolic blood pressure 120 mm[Hg] Suri LORENZO Work Phone: [facility] Encounters Encounter Date Encounter Type Care Provider Facility Start: 05-22-2024 End: 05-22-2024 Bamboo flowsheet Jasiel Deshaun DO Work Phone: [facility] Start: 05-22-2024 End: 05-22-2024 Bamboo flowsheet Jasiel Deshaun DO Work Phone: [facility] Start: 05-22-2024 End: 05-22-2024 flow sheet Jasiel Deshaun DO Work Phone: [facility] Comment on above: 30 weeks gestation o f ; Third trimester ; Gestational diabetes mellitus (GDM), antepartum, gestational diabetes method of control unspecified Start: 05-22-2024 End: 05-22-2024 ambulatory JASIEL DESHAUN Not Available Start: 05-08-2024 End: 05-08-2024 Bamboo flowsheet Suri LORENZO Work Phone: [facility] Start: 05-08-2024 End: 05-08-2024 Bamboo flowsheet Suri LORENZO Work Phone: [facility] Start: 05-08-2024 End: 05-08-2024 flow sheet Suri LORENZO Work Phone: [facility] Comment on above: 28 weeks gestation o f ; Third trimester ; size inconsistent with dates Start: 05-08-2024 End: 05-08-2024 ambulatory SURI CANALES Not Available Start: 05-01-2024 End: 05-01-2024 Clinisync Result Encounter Jasile Deshaun DO Work Phone: [facility] External Department Unsolicited Start: 05-01-2024 End: 05-01-2024 Clinisync Result Encounter Jasiel Deshaun DO Work Phone: [facility] Unsolicited Start: 04-17-2024 End: 04-17-2024 ambulatory JASIEL DESHAUN Not Available Start: 04-10-2024 End: 04-10-2024 ambulatory JASIEL R DESHAUN [facility] Start: 03-13-2024 End: 03-13-2024 ambulatory SURI CANALES Not Available Start: 02-13-2024 End: 02-13-2024 ambulatory JASIEL DESHAUN Not Available Start: 01-17-2024 End: 01-17-2024 ambulatory JASIEL DESHAUN Not Available Start: 08-22-2023 End: 08-22-2023 ambulatory JASIEL DESHAUN Not Available Start: 07-04-2023 End: 07-04-2023 ambulatory JASIEL DESHAUN Not Available Start: 08-21-2022 End: 08-21-[address] [facility] Facility: Start: 08-08-2021 End: 08-09-2021 ambulatory SHANTELLE HDEZ [facility] Start: 12-21-2020 End: 12-22-2020 ambulatory J[facility]MY [facility] Start: 12-21-2020 End: 12-21-2020 Subsequent hospital visit by physician Shantelle Dean PA-C Work Phone: [facility] Start: 03-18-2020 End: 03-18-2020 Subsequent hospital visit by physician Shantelle [place] [facility] Procedures Date Procedure Procedure Detail Performing Clinician Start: 05-22-2024 Urnls dip stick/tabl et rgnt non-auto w/o micrscp Jasiel Deshaun DO Work Phone: Start: 05-08-2024 Urnls dip stick/tabl et rgnt non-auto w/o micrscp Suri LORENZO Work Phone: Start: 05-01-2024 GLUCOSE TOLERANCE 3 HOUR Jasiel Deshaun DO Work Phone: Start: 12-21-2020 Antibody amy Meehan MD Work Phone: Plan of Treatment Date Care Activity Detail Author Start: 02-26-2027 DTaP/Tdap/Td vaccine (7 - Td) DTaP/Tdap/Td vaccine (7 - Td) [facility] [place] Start: 08-25-2024 End: 08-25-2024 Patient encounter procedure 08/25/2024 9:00 AM EST Office Visit [facility] [address] [place] [address] Jasiel Meade DO [address] [place] [place], [place] [id number] [facility] Start: 06-05-2024 End: 06-05-2024 Patient encounter procedure 06/05/2024 11:20 AM EST Routine [facility] [address] [place] [address] Suri Canales PA [address] [place], [place] [id number] [facility] Start: 05-22-2024 End: 05-22-2025 US biophysical profile w non stress test US biophysical profile w non stress test Imaging Routine Gestational diabetes mellitus (GDM), antepartum, gestational diabetes method of control unspecified Expected: 05/22/2024 (Approximate), Expires: 05/22/2025 [facility] Comment on above: Expected: 05/22/2024 (Approximate), Expires: 05/22/2025 Start: 05-22-2024 End: 05-22-2025 US for US OB SCAN FOR GROWTH Imaging Routine Third trimester Gestational diabetes mellitus (GDM), antepartum, gestational diabetes method of control unspecified Expected: 05/22/2024 (Approximate), Expires: 05/22/2025 [facility] Work Phone: Comment on above: Expected: 05/22/2024 (Approximate), Expires: 05/22/2025 Start: 05-22-2024 End: 05-22-2024 Patient encounter procedure [facility] Comment on above: Arrived Start: 05-22-2024 End: 05-22-2024 Professional / ancillary services management 05/22/2024 9:00 AM EDT Ancillary Procedure [facility] [address] [address] [facility] Start: 05-08-2024 End: 05-08-2025 US for US OB SCAN FOR GROWTH Imaging Routine size inconsistent with dates Expected: 05/08/2024 (Approximate), Expires: 05/08/2025 [facility] Work Phone: Comment on above: Expected: 05/08/2024 (Approximate), Expires: 05/08/2025 Start: 05-08-2024 End: 05-08-2024 Patient encounter procedure [facility] Comment on above: Arrived Start: 03-30-2024 Influenza vaccination Influenza Vacc ine (#1) [facility] Start: 03-18-2023 Screening for malign ant neoplasm of cervix [facility]: Start: 06-12-2021 Screening for malign ant neoplasm of cervix Cervical cancer screen [place], [place] Start: 03-30-2021 Influenza vaccination Flu vacc ine (Season Ended) [facility] [employer] Phone: Start: 03-30-2020 Influenza vaccination Flu vaccine (# 1) [place], [place] Start: 06-12-2019 Screening for Chlamy flaco trachomatis Chlamydia screen [place], [place] Start: 09-13-2011 Hepatitis A vaccine (2 of 2 - 2-dose series) Hepatitis A vaccine (2 of 2 - 2-dose series) [place], [place] Start: 2007 COVID-19 Vaccine (1) COVID-19 Vaccin e (1) [facility]: Start: 1995 Hepatitis C screening Hepatitis C sc reen [facility] [employer] Phone: End: 12-21-2020 Mumps Antibody, IgG Mumps Antibody, IgG Lab Routine Once for 1 Occurrences starting 12/21/2020 until 12/21/2020 [facility]: Comment on above: Once for 1 Occurrenc es starting 12/21/2020 until 12/21/2020 Mumps Antibody, IgG Mumps Antibo dy, IgG Lab Routine 12/21/2020 4:27 PM EDT [employer] Phone: End: 12-21-2020 Quantiferon TB Gold Quantiferon TB Gold Microbiology Routine Once for 1 Occurrences starting 12/21/2020 until 12/21/2020 [employer] Phone: Comment on above: Once for 1 Occurrenc es starting 12/21/2020 until 12/21/2020 Quantiferon TB Gold Quantiferon TB Gold Microbiology Routine 12/21/2020 4:27 PM EDT [employer] Phone: End: 12-21-2020 Rubeola Antibody, IgG Rubeola Antibody, IgG Lab Routine Once for 1 Occurrences starting 12/21/2020 until 12/21/2020 [employer] Phone: Comment on above: Once for 1 Occurrenc es starting 12/21/2020 until 12/21/2020 Rubeola Antibody, IgG Rubeola An tibody, IgG Lab Routine 12/21/2020 4:27 PM EDT [employer] Phone: End: 12-21-2020 Varicella Zoster Antibody, IgG Varicella Zoster Antibody, IgG Lab Routine Once for 1 Occurrences starting 12/21/2020 until 12/21/2020 [employer] Phone: Comment on above: Once for 1 Occurrenc es starting 12/21/2020 until 12/21/2020 Varicella Zoster Antibody, IgG Varicella Zoster Antibody, IgG Lab Routine 12/21/2020 4:27 PM EDT [employer] Phone: Immunizations Immunization Date Immunization Notes Care Provider [facility] 06-28-2021 influenza virus vacc ine, unspecified formulation Jasiel Meade DO Work Phone: [facility] 03-09-2020 tuberculin skin test ; purified protein derivative solution, intradermal Shantelle Dean [place], [place] 04-28-2019 influenza, injectabl e, quadrivalent, preservative free [facility] [place] 06-12-2018 influenza, injectabl e, quadrivalent, preservative free [facility] 05-01-2018 tuberculin skin test ; purified protein derivative solution, intradermal [facility] 09-12-2017 hepatitis B vaccine, adult dosage [facility] 04-13-2017 Human Papillomavirus 9-valent vaccine [facility] 04-10-2017 hepatitis B vaccine, adult dosage [facility] 03-07-2017 hepatitis B vaccine, adult dosage [facility] 03-07-2017 meningococcal polysaccharide (groups A, C, Y and W-135) diphtheria toxoid conjugate vaccine (MCV4P) [facility] 03-07-2017 tuberculin skin test ; purified protein derivative solution, intradermal [facility] 02-26-2017 tetanus toxoid, redu juve diphtheria toxoid, and acellular pertussis vaccine, adsorbed [facility] 02-26-2017 tuberculin skin test ; purified protein derivative solution, intradermal [facility] 08-13-2014 Human Papillomavirus 9-valent vaccine [facility] 04-01-2014 meningococcal polysaccharide (groups A, C, Y and W-135) diphtheria toxoid conjugate vaccine (MCV4P) [facility] 02-10-2014 Human Papillomavirus 9-valent vaccine [place], [place] Payers Date Payer Category Payer Private Health Insurance [employer] [id number] 2022 Unknown [employer] [id number] 2022-Present [address] [place] [address] [id number] 2022 Unknown [id number] 2021 Unknown [id number] 2016 Private Health Insurance [employer]EAur[employer]US FIERRO [id number] 2016-Present [phone] [address] [place] [address] [id number] 1995 Unknown [id number]. 175 1995 Unknown [id number]. 593 1995 Unknown [id number] [id number]. 1286 1995 Unknown [id number] [id number]. 1259 1995 Unknown [id number] [id number]. 1259 1995 Unknown [id number] 2.16.840.1.827069.3.579.2. 1259 1995 Unknown [id number] 2.16.840.1.615148.3.579.2. 1259 1995 Unknown [id number] 2.16.840.1.827961.3.579.2. 1259 1995 Unknown [id number] 2.16.840.1.231025.3.579.2. 1259 1995 Unknown [id number] [id number]. 1259 1995 Unknown [id number] [id number]. 1259 1959 Unknown [id number] Social History Date Type Detail Facility Start: 03-18-2020 End: 01-17-2024 Tobacco smoking status AZIS Never smoker [facility] Start: 03-18-2020 End: 01-17-2024 Tobacco use and exposure Never used [facility] Start: 02-05-2017 Alcohol Comment rarely [facility] Sex Assigned At Not on file [facility] Start: 1995 Sex Assigned At Female [employer] Work Phone: Start: 04-17-2024 End: 05-22-2024 Alcoholic beverage intake Ex-drinker (finding) [facility] Start: 01-17-2024 End: 04-17-2024 Alcoholic beverage intake [facility] Start: 01-17-2024 Tobacco use panel [facility] Start: 11-04-2023 [facility] Start: 02-20-2023 Gender identity Identifies as female gender (finding) [facility] Start: 02-20-2023 Sexual orientation Heterosexual (finding) [facility] History of Present illness Narrative 05-22-2024 DO Nicolette Olsen 05/22/2024 9:50 AM EDT Note Date & Type Note Facility 05-22-2024 History of Presen t illness Narrative Reason for Appointment: Patient ID: Holli Jenkins is a 28 y.o. female who presents for No chief complaint on file. Patient presents today for Return OB appointment. MEDICATIONS Current Outpatient Medications Medication Instructions magnesium oxide (MAG-OX) 400 mg, Daily RT ALLERGIES No Known Allergies PROBLEMS [...] SYSTEMS Review of Systems: Review of Systems All other systems reviewed and are negative. OBJECTIVE Objective: Physical Exam Constitutional: Appearance: Normal appearance. She is well-developed. Cardiovascular: Rate and Rhythm: Normal rate and regular rhythm. Pulmonary: Effort: Pulmonary effort is normal. Breath sounds: Normal breath sounds. Abdominal: General: Bowel sounds are normal. There is no distension. Palpations: Abdomen is soft. Tenderness: There is no abdominal tenderness. There is no guarding or rebound. Musculoskeletal: General: No swelling. Normal range of motion. Right lower leg: No edema. Left lower leg: No edema. Neurological: Mental Status: She is alert and oriented to person, place, and time. Skin: General: Skin is warm and dry. Psychiatric: Mood and Affect: Mood normal. Behavior: Behavior normal. Vitals and nursing note reviewed. Exam conducted with a enterprise account executive present. Vitals: Estimated body mass index is 39.1 kg/m as calculated from the following: Height as of 03/22/23: 5' 2 . Weight as of this encounter: 213 lb 12.8 oz. BP: 110/72 Patient's last menstrual period was 10/21/2023. ASSESSMENT & PLAN ICD-10-CM 1. 30 weeks gestation of Z3A.30 POCT urinalysis dipstick manually resulted 2. Third trimester Z34.93 POCT urinalysis dipstick manually resulted Patient presents today for a routine obstetrics appointment. Patient is currently 30w4d with a Estimated Date of Delivery: 07/27/24. Patient had growth scan prior to appointment today and will continue every 4 weeks. Patient brought in FSBS results for review. Documented by Shima العراقي LPN on behalf of: Jasiel Meade DO documented in this encounter [facility] History of Present illness Narrative 05-08-2024 [...] nursing note reviewed. Exam conducted with a enterprise account executive present. Vitals: Estimated body mass index is [...] of: BJ Garcia documented in this encounter [facility] Evaluation note Note Date & Type Note Facility Evaluation note Diagnosis 28 weeks gestation of Third trimester state, incidental size inconsistent with dates documented in this encounter [facility] Evaluation note Note Date & Type Note Facility Evaluation note Diagnosis 30 weeks gestation of Third trimester state, incidental Gestational diabetes mellitus (GDM), antepartum, gestational diabetes method of control unspecified documented in this encounter [facility] Summary Purpose Family History No Family History Records FoundNo Family History Records FoundNo Family History Records FoundNo Family History Records FoundNo Family History Records FoundNo Family History Records Found Advance Directives No Advanced Directives Records FoundDocuments on File Type Date Recorded Patient Tester Operator Expl anation ACP-Advance Directive ACP-Power of Couture Dressmaker Additional Source Comments INFORMATION SOURCE (unrecogn ized section and content) DATE CREATED AUTHOR 03/12/2020 [facility] DATE CREATED AUTHOR AUTHOR'S ORGANIZ ATION 08/20/2021 [facility] DATE CREATED AUTHOR AUTHOR'S ORGANIZ ATION 02/18/2022 [facility] DATE CREATED AUTHOR AUTHOR'S ORGANIZ ATION 08/25/2022 [facility] DATE CREATED AUTHOR AUTHOR'S ORGANIZ ATION 04/12/2024 [facility] DATE CREATED AUTHOR AUTHOR'S ORGANIZ ATION 05/23/2024 [facility] dical Specialists EPIC Care Teams (unrecognized sec tion and content) Operating Room Tech Relationship Specialty [place] [address] [place] [address] PCP - General Family Medicine 03/22/23 Operating Room Tech Relationship Specialty [place] [address] [place] [address] PCP - General Family Medicine 03/22/23 Operating Room Tech Relationship Specialty [place] [address] [place] [address] PCP - General Family Medicine 03/22/23 Suri Canales PA [address] [place], [place] [address] [address] PCP - Medical [employer] 07/30/22 07/29/99 Operating Room Tech Relationship Specialty [place] [address] [facility] [place] [address] PCP - General Family Medicine 03/22/23 Suri Canales PA [address] [place], [place] [address] [address] PCP - Medical [employer] 07/30/22 07/29/99 Reason for Visit (unrecogniz ed section and [...] BE BASED ON THE PRIMARY CLINICAL RECORDS. [email or web address] provides no warranty or guarantee of the accuracy or completeness of information in this document.
[2024-06-05 09:07] VITALS: BP 130/74; PULSE 89
--- NOTE | 2024-06-05 09:26 | US_ITS ---
[address] [address] Patient Name: ZAKIA SEARS MRN: [id number] date: 1995 Sex: F Assigned Patient Location: US Current Patient Location: Accession/Order Number: [id number] Exam Date: 06/05/2024 09:33 Report Date: 06/06/2024 05:40 At the request of: JASIEL RAMOS Procedure: US OB BPP w non-stress EXAMINATION: US OB BPP w non-stress HISTORY:GESTATIONAL DIABETES MELLITUS O24.419 COMPARISON: Ultrasound OB growth 05/22/2024 TECHNIQUE: Ultrasound biophysical profile was performed in the radiology department. BREATHING MOVEMENTS: 2 GROSS BODY MOVEMENTS: 2 TONE: 2 QUALITATIVE AMNIOTIC FLUID VOLUME: 2 PRESENTATION: CEPHALIC HEART RATE: 140.63 bpm AMNIOTIC FLUID VOLUME: 12.56 cm GESTATIONAL AGE: 89 Day US/US OB BPP w non-stress IMPRESSION: Total biophysical profile score: 8 Electronically authenticated by: MARIAM GARCIA Date: 06/06/2024 05:40
--- NOTE | 2024-06-05 09:27 | US_ITS ---
[address] [address] Patient Name: ZAKIA SEARS MRN: [id number] date: 1995 Sex: F Assigned Patient Location: [facility] Current Patient Location: Accession/Order Number: [id number] Exam Date: 06/05/2024 09:33 Report Date: 06/06/2024 05:42 At the request of: JASIEL RAMOS Procedure: US OB growth EXAMINATION: US OB growth HISTORY: GESTATIONAL DIABETES MELLITUS O24.419 COMPARISON: Ultrasound OB growth 05/22/2024 FINDINGS: Heart Rate: 140.63 bpm Amniotic Fluid Volume: 12.67 m; normal range. Number: 1 Position: CEPHALIC BIOMETRY: BPD: 7.96 cm; 32 weeks 0 days; 25 % HC: 31.15 cm; 34 weeks 6 days; 73.30 % AC: 30.67 cm; 34 weeks 4 days; 94.30 % FL: 6.15 cm; 31 weeks 6 days; 20.80 % EFW: 2240.09 g; 73.90 % FL/AC: 20.04 FL/BPD: 77.18 HC/AC: 1.02 GESTATIONAL AGE: Age by EDC: 32 weeks 4 days VICTORINA by EDC: 2024-07-27 Age by US: 33 weeks 2 days VICTORINA by US: 2024-07-22 US/US OB growth IMPRESSION: 1. Single live intrauterine with growth detailed above. Electronically authenticated by: MARIAM GARCIA Date: 06/06/2024 05:42
== END 2024-06-05 10:05 | disposition home or self-care (01) ==
LOC: US 07:03 → FBC 09:00
PROVIDERS: Visit Provider Obstetrics & Gynecology
DX: O24.419 Gestational diabetes mellitus in pregnancy, unspecified control (principal); Z3A.32 32 weeks gestation of pregnancy
CPT/HCPCS: 76816; 76818

== ENCOUNTER 2024-06-09 07:09 | Outpatient (OUT) | payer OTHER, SELFPAY ==
--- OUTSIDE RECORDS SUMMARY | 2024-06-09 07:12 | XMS_ITS | CCD ---
Author Organization [facility] Care Team Providers Care Manager Talent Management Name Role Phone Shantelle Dean Primary Care [...] mg by Subdermal route once 0 Active insulin glargine 100 unt/ml injectable solution (3 sources) Insulin Analog Start: 05-26-2024 End: 06-25-2024 inject 10 [IU] by subcutaneous injection in the evening insulin glargine (Lantus) 100 UNIT/ML injection Indications: Hyperglycemia , GESTATIONAL DIABETES Inject 10 Units under the skin in the evening 3 mL 05/26/2024 06/25/2024 Active magnesium oxide 400 mg oral tablet (10 sources) take 1 tablet by mouth in [...] 05-08-2024 Episodic Other and delivery including normal (6 sources) Third trimester ; Translations: [Encounter for [...] [30 weeks gestation of ] 05-22-2024 Episodic Residual codes; unclassified (2 sources) Gestation period, 32 weeks; Translations: [32 weeks gestation of ] 06-05-2024 Episodic Past or Other Problems Problem Classification Problem Date Documented Date Episodic/Chronic Abdominal pain (10 sources) Vaginal pain; Translations: [Pelvic and perineal [...] Range Facility Urinalysis macro (dipstick) panel (U)on 06-05-2024 Bilirubin, UA Negative Negative - 4(70) +++ mg/dL [facility] Blood, UA Negative Negative - 50 Bib/mcL [facility] Clarity, UA Clear [facility] Color, UA Yellow [facility] Glucose, UA Negative Negative - 1999(110) ++++ mg/dL [facility] Interpretation and review of laboratory results Abnormal [facility] Ketones, UA Negative Negative - 160(16) ++++ mg/dL [facility] Leukocytes, UA Trace Negative - 500+++ Alvaro/mcL [facility] Nitrite, UA Negative Negative - Positive [facility] pH, UA 7 5 - 9 [facility] Protein, UA Negative Negative - 1999(20) ++++ mg/dL [facility] Spec Grav, UA 1.015 1 - 1.03 [facility] Urobilinogen, UA 0.2 0.2 - 12 mg/dL [facility] Urinalysis macro (dipstick) panel (U)on 05-22-2024 Bilirubin, UA Negative Negative - 4(70) +++ mg/dL [facility] Blood, UA Negative Negative - 50 Bib/mcL [facility] Clarity, UA Clear [facility] re Color, UA Yellow [facility] Glucose, UA Negative Negative - 1999(110) ++++ mg/dL [facility] Interpretation and review of laboratory results Abnormal [facility] Ketones, UA Negative Negative - 160(16) ++++ mg/dL [facility] Leukocytes, UA Positive Negative - 500+++ Alvaro/mcL [facility] Comment on above: small Nitrite, UA Negative Negative - Positive [facility] pH, UA 7 5 - 9 [facility] Protein, UA Negative Negative - 1999(20) ++++ mg/dL [facility] Spec Grav, UA 1.015 1 - 1.03 [facility] Urobilinogen, UA 0.2 0.2 - 12 mg/dL [facility] Urinalysis macro (dipstick) panel (U)on 05-08-2024 Bilirubin, UA Negative Negative - 4(70) +++ mg/dL [facility] Blood, UA Negative Negative - 50 Bib/mcL [facility] Clarity, UA Clear [facility] re Color, UA Yellow [facility] Glucose, UA Negative Negative - 1999(110) ++++ mg/dL [facility] Interpretation and review of laboratory results Abnormal [facility] Ketones, UA Negative Negative - 160(16) ++++ mg/dL [facility] Leukocytes, UA Positive Negative - 500+++ Alvaro/mcL [facility] Comment on above: small Nitrite, UA Negative Negative - Positive [facility] pH, UA 7.0 5 - 9 [facility] e Protein, UA Negative Negative - 1999(20) ++++ mg/dL [facility] Spec Grav, UA 1.020 1 - 1.03 [facility] Urobilinogen, UA 0.2 0.2 - 12 mg/dL [facility] GLUCOSE TOLERANCE 3 HOURon 1 GLUCOSE TOLERANCE 3 HOUR High mg/dL [facility] Comment on above: GLU FAST 97H (<95) C ol: 05/01/24 0722 GLU 1HR 173 (<180) Col: 05/01/24 0823 GLU 2HR 162H (<155) Col: 05/01/24 0924 GLU 3HR 114 (<140) Col: 05/01/24 1022 Interpretation and review of laboratory results Abnormal [facility] PAP ACOG PANEL 2: 21 to 29on 08-25-2022 . . Normal [facility] Comment on above: Performed By: #### 4 [id number] #### [facility] [address] [address] [address] Matias Shukla Age Gdln ACOG Testing 21- Normal [facility] Comment on above: Performed By: #### 4 [id number] #### [facility] [address] [address] [address] Matias Shukla DIAGNOSIS: Comment [facility] Comment on above: Result Comment: NEGA TIVE FOR INTRAEPITHELIAL LESION OR MALIGNANCY. Performed By: #### 4 [id number] #### [facility] [address] [address] [address] Matias Shukla Methodology: Comment Normal [facility] Comment on above: Result Comment: This liquid based ThinPrep(R) pap test was screened with the use of an image guided system. Performed By: #### 4 [id number] #### [facility] [address] [place] [address] Dr. Matias Shukla Note: Comment Normal [facility] Comment on above: Result Comment: The Pap smear is a screening test designed to aid in the detection of premalignant and malignant conditions of the uterine cervix. It is not a diagnostic procedure and should not be used as the sole means of detecting cervical cancer. Both false-positive and false-negative reports do occur. . Performed By: #### 4 [id number] #### [facility] [address] [place] [address] Dr. Matias Shukla Performed by: Comment Normal [facility] Comment on above: Result Comment: Monika Prieto, Dictaphone Operator (ASCP) Performed By: #### 4 [id number] #### [facility] [address] [place] [address] Dr. Matias Shukla Reflex Criteria: Comment Normal [facility] Comment on above: Result Comment: The HPV DNA reflex criteria were not met with this specimen result therefore, no HPV testing was performed. . Performed By: #### 4 [id number] #### [facility] [address] [place] [address] Dr. Matias Shukla Specimen adequacy: Comment Normal [facility] Comment on above: Result Comment: Sati sfactory for evaluation. Endocervical and/or squamous metaplastic cells (endocervical component) are present. Performed By: #### 4 [id number] #### [facility] [address] [place] [address] Dr. Matias Shukla MUMPS IGG BLDon 02-07-2022 MUMPS IGG 1.14 Normal [facility] Comment on above: Result Comment: RAN IN TRIPLICATE NORMAL RANGES: < OR = 0.9O NEGATIVE ; NO DETECTABLE IgG ANTIBODY TO MUMPS 0.91 - 1.09 EQUIVOCAL; REPEAT TESTING SUGGESTED > OR = 1.10 POSITIVE ; INDICATES PRESENCE OF DETECTABLE IgG ANTIBODY TO MUMPS Performed By: #### 1 0055, 96050, [id number], [id number] #### [facility] [address] RUBELLAon 02-07-2022 RUBELLA 1.73 Normal [facility] Comment on above: Result Comment: NORM AL RANGES: < OR = 0.9O NEGATIVE ; NO DETECTABLE IgG ANTIBODY TO RUBELLA 0.91 - 1.09 EQUIVOCAL; REPEAT TESTING SUGGESTED > OR = 1.10 POSITIVE ; INDICATES PRESENCE OF DETECTABLE IgG ANTIBODY TO RUBELLA VIRUS Performed By: #### 1 0055, 53543, 82713, [id number] #### [facility] [address] RUBEOLA MEASLES IGGon 2021 RUBEO IGG 4.62 Normal [facility] Comment on above: Result Comment: NORM AL RANGES: < OR = 0.9O NEGATIVE ; NO DETECTABLE IgG ANTIBODY TO RUBEOLA 0.91 - 1.09 EQUIVOCAL; REPEAT TESTING SUGGESTED > OR = 1.10 POSITIVE ; INDICATES PRESENCE OF DETECTABLE IgG ANTIBODY TO RUBEOLA Performed By: #### 1 0055, 28153, 30849, 42241 #### [facility] [address] TB QUANTIFERON PLUSon 2021 MITOGEN MINUS NIL 8.15 IU/mL Normal [facility] Comment on above: Performed By: #### 3 1592 #### [facility] [address] NIL 0.03 IU/mL Normal [facility] Comment on above: Performed By: #### 3 1592 #### [facility] [address] TB QUANTIFERON Negative Normal NEGATIVE [facility] Comment on above: Result Comment: Eric tiferon TB Gold Interpretation (IU/mL): NEGATIVE: M. tuberculosis infection not likely. Nil: <=8.0 TB1 Antigen minus Nil ([id number]): <0.35 OR >=0.35; and <25% of Nil value. TB2 Antigen minus Nil ([id number]-[id number]): <0.35 OR >=0.35; and <25% of Nil [...] (https://www.cdc.gov/tb/publications/guidlines/default.htm Performed By: #### 3 1592 #### [facility] [address] TB1 AG 0.03 IU/mL Normal [facility] Comment on above: Performed By: #### 3 1592 #### [facility] [address] TB1 AG MINUS NIL 0.00 IU/mL Normal [facility] Comment on above: Performed By: #### 3 1592 #### [facility] [address] [place] [address], [facility] TB2 AG 0.04 IU/mL Normal [facility] Comment on above: Performed By: #### 3 1592 #### [facility] [address] TB2 AG MINUS NIL 0.01 IU/mL Normal [facility] Comment on above: Performed By: #### 3 1592 #### [facility] [address] VARICELLA ZOSTER IGGon 02-07 VARICELLA IGG 2.60 Normal [facility] Comment on above: Result Comment: NORM AL RANGES: < OR = 0.9O NEGATIVE ; NO DETECTABLE IgG ANTIBODY TO VARICELLA-ZOSTER VIRUS 0.91 - 1.09 EQUIVOCAL; REPEAT TESTING SUGGESTED > OR = 1.10 POSITIVE ; INDICATES PRESENCE OF DETECTABLE IgG ANTIBODY TO VARICELLA-ZOSTER VIRUS Performed By: #### 1 0055, 29552, 93805, 67468 #### [facility] Esha WIGG[address] HPV DNA High Riskon 08-19-19 HPV Interp [facility] Comment on above: Result Comment: This [...] purposes. Performed By: #### H PVH #### [email or web address] [address] [place] [address] Box Feeder: Rickey Watson MD HPV Type 16 Not detected [facility] Comment on above: Performed By: #### H PVH #### [address] [address] Box Feeder: Rickey Watson MD HPV Type 18 Not detected [facility] Comment on above: Performed By: #### H PVH #### [facility] [address] [place] [address] Box Feeder: Rickey Watson MD Other High Risk HPV Not detected [facility] Comment on above: Performed By: #### H PVH #### [email or web address] [address] [place] [address] Box Feeder: Rickey Watson MD HPV DNA High Riskon 08-18-19 22 Source .GENITAL - NOT SPECIFIED Normal [facility] Comment on above: Performed By: #### H PVH #### [address] [address] Box Feeder: Rickey Watson MD HPV Sample .THIN PREP Normal [facility] Comment on above: Performed By: #### H PVH #### [address] [address] Box Feeder: Rickey Watson MD Chlamydia/GC DNA, TPon 08-10 Chlamydia Probe, TP Negative Normal NEG [facility] Comment on above: Result Comment: CHLA [...] target. Performed By: #### C YTCGP #### [address] [address] Box Feeder: Rickey Watson MD Gonorrhea Probe, TP Negative Normal NEG [facility] Comment on above: Result Comment: NEIS [...] target. Performed By: #### C YTCGP #### [address] [address] Box Feeder: Rickey Watson MD Cytologyon 08-08-2021 Cytology (NOTE) INTERPRETATION Cervical material, (ThinPrep vial, Imaging-assisted review): Specimen Adequacy: Satisfactory for evaluation. - Endocervical/transfor mation zone component present. - Scant cellularity. Descriptive Diagnosis: Atypical squamous cells of undetermined significance (ASC-US). Dictaphone Operator: AMANDA Michaels M.D. Electronically Signed Out rd08/18/2021 Amendments Originally Reported As: Procedure/Addendum Source: Clinical History LMP: Patient Name: Arvind Rec: Path Number: Fax: Normal [facility] Comment on above: Performed By: #### P PPVP #### [facility] [address] [place], [place] [id number] Box Feeder: Rickey Watson MD QuantiFERON TBon 12-24-2020 Quanti Binu minus NIL 8.10 IU/mL Normal [facility] Comment on above: Performed By: #### R UBI, LUIZ, MARITZA, VZI #### [facility] [address], [place] [address] Box Feeder: Rickey Watson MD #### AQF #### [facility] [address] [place] [address] Box Feeder: Mark Grossman MD Quanti TB Gold Plus Negative Normal Negative [facility] Comment on above: Result Comment: (NOT [...] Mycobacterium tuberculosis Infection --- [place], 2010 (http://www.cdc.gov/mmwr/preview/mmwrhtml/pb3109r6.htm), for more information concerning test performance in low-prevalence populations and use in occupational screening. Performed By: #### R UBI, LUIZ, MARITZA, VZI #### [place] [address] Box Feeder: Rickey Watson MD #### AQF #### [address] [address] Box Feeder: Mark Grossman MD Quanti TB1 minus NIL 0.00 IU/mL Normal 0.00-0.34 [facility] Comment on above: Performed By: #### R UBI, LUIZ, MARITZA, VZI #### [place] [address] Box Feeder: Rickey Watson MD #### AQF #### [address] [id number] Box Feeder: Mark Grossman MD Quanti TB2 minus NIL 0.01 IU/mL Normal 0.00-0.34 [facility] Comment on above: Performed By: #### R UBI, LUIZ, MARITZA, VZI #### [place] [address] Box Feeder: Rickey Watson MD #### AQF #### [facility] [employer] [address] [place] [id number] Box Feeder: Mark Grossman MD QuantiFERON NIL 0.01 IU/mL Normal [facility] Comment on above: Result Comment: (NOT E) Performed By: [employer] [address] [place] [address] Livestock Speculator: Carolyn Wei MD Performed By: #### R UBI, LUIZ, MARITZA, VZI #### [place] [address] Box Feeder: Rickey Watson MD #### AQF #### [facility] [address] [place], [place] [id number] Box Feeder: Mark Grossman MD Measles (Rubeola) Imon 12-22 Measles (Rubeola) Im 3.68 Normal >1.09 [facility] Comment on above: Result Comment: Interpretation: IMMUNE Reference Range: <0.91 Not Immune 0.91-1.09 Equivocal >1.09 Immune Performed By: #### R UBI, LUIZ, MARITZA, VZI #### [address] [id number] Box Feeder: Rickey Watson MD #### AQF #### [facility] [address] [place], [place] [id number] Box Feeder: Mark Grossman MD Mumps,Immun,Abon 12-22-2020 Mumps,Immun,Ab 1.16 Normal >1.09 [facility] Comment on above: Result Comment: Interpretation: IMMUNE Reference Range: <0.91 Not Immune 0.91-1.09 Equivocal >1.09 Immune Performed By: #### R UBI, LUIZ, MARITZA, VZI #### [address] [address] Box Feeder: Rickey Watson MD #### AQF #### [facility] [address] [place], [place] [id number] Box Feeder: Mark Grossman MD VZ Immunityon 12-22-2020 VZ Immunity 2.24 Normal >1.09 [facility] Comment on above: Result Comment: Interpretation: IMMUNE Reference Range: <0.91 Not Immune 0.91-1.09 Equivocal >1.09 Immune Performed By: #### R UBI, LUIZ, MARITZA, VZI #### [address] [id number] Box Feeder: Rickey Watson MD #### AQF #### [facility] [address] [place] [address] Box Feeder: Mark Grossman MD Rubella Ab, IgGon 12-21-2020 Rubella Ab, IgG 16.2 IU/mL Normal [facility] Comment on above: Result Comment: REFERENCE RANGE: <5.0 NON-REACTIVE (non-immune) 5.0 TO 9.9 EQUIVOCAL >=10.0 REACTIVE (immune) Performed By: #### R UBI, LUIZ, MARITZA, VZI #### [facility] [employer] [address], [place] [id number] Box Feeder: Rickey Watson MD #### AQF #### [facility] [address] [place] [address] Box Feeder: Mark Grossman MD Rubella antibody, IgGOrdered By: Jimmy Meehan on 12-21-2020 Rubella virus IgG Ql (S) 16.2 IU/mL [employer] Phone: Comment on above: REFERENCE RANGE: <5.0 NON-REACTIVE (non-immune) 5.0 TO 9.9 EQUIVOCAL >=10.0 REACTIVE (immune) [employer] Phone: Lab - Toxicology Resultson 0 03-11-2020 Lab - Toxicology Results [id number] Normal [facility] QuantiFERON TB Gold (In Tube ) LCon 03-08-2020 QuantiFERON Criteria LC Comment [facility] Comment on above: Result Comment: The QuantiFERON-TB Gold Plus result is determined by subtracting the Nil value from either TB antigen (Ag) tube. The mitogen tube serves as a control for the test. Performed By: #### 4 [id number], [id number] #### [facility] (DEFAULT) [address] [place] [address] QuantiFERON M. tuberculosis1 Ag Value LC 0.09 IU/mL [facility] Comment on above: Performed By: #### 4 [id number], [id number] #### [facility] (DEFAULT) [address] [place] [address] QuantiFERON M. tuberculosis2 Ag Value LC 0.08 IU/mL [facility] Comment on above: Performed By: #### 4 [id number], [id number] #### [facility] (DEFAULT) [address] [place] [address] QuantiFERON Mitogen Value LC >10.00 [facility] Comment on above: Result Comment: Perf ormed At: [id number] [place], [place] [id number] Kat Arevalo PhD Ph:[phone] Performed By: #### 4 [id number], [id number] #### [facility] (DEFAULT) [address] [place] [address] QuantiFERON Nil Value LC 0.01 IU/mL [facility] Comment on above: Performed By: #### 4 [id number], [id number] #### [facility] (DEFAULT) [address] [place] [address] QuantiFERON-TB Gold Plus LCo n 03-08-2020 QuantiFERON-TB Gold Plus LC Negative Negative [facility] Comment on above: Result Comment: Perf ormed At: [address] [id number] Kat Arevalo PhD Ph:[phone] Performed By: #### 4 [id number], [id number] #### [facility] (DEFAULT) [address] [place] [address] QuantiFERON Incubation LC Incubation performed. [facility] Comment on above: Result Comment: Perf ormed At: [facility] [address] [place], [place] [id number] Kat Arevalo PhD Ph:[phone] Performed By: #### 4 [id number], [id number] #### [facility] (DEFAULT) [address] [place] [address] HBSab Qnt LCon 03-05-2020 Hep B Surf Ab Quant LC 145.6 mIU/mL Immunity>9.9 [facility] Comment on above: Result Comment: Stat us of Immunity Anti-HBs Level Inconsistent with Immunity 0.0 - 9.9 Consistent with Immunity >9.9 Performed At: [facility] [address] [place] [id number] Kat Arevalo PhD Ph:[phone] Performed By: #### 1 [id number], [id number] #### [facility] (DEFAULT) [address] [place] [address] Measles/Mumps/Rubella Immuni ty LCon 03-05-2020 Mumps Abs, IgG LC 69.5 AU/mL Immune >10.9 [facility] Comment on above: Result Comment: Nega tive <9.0 Equivocal 9.0 - 10.9 Positive >10.9 A positive result generally indicates past exposure to Mumps virus or previous vaccination. Performed At: [id number] [place], [place] [id number] Kat Arevalo PhD Ph:[phone] Performed By: #### 1 [id number], [id number] #### [facility] (DEFAULT) [address] [place] [address] Rubella Antibodies, IgG LC 1.75 index Immune >0.99 [facility] Comment on above: Result Comment: Non- immune <0.90 Equivocal 0.90 - 0.99 Immune >0.99 Performed By: #### 1 [id number], [id number] #### [facility] (DEFAULT) [address] [place] [address] Rubeola Ab, IgG, EIA LC >300.0 Immune >16.4 [facility] Comment on above: Result Comment: Nega tive <13.5 Equivocal 13.5 - 16.4 Positive >16.4 Presence of antibodies to Rubeola is presumptive evidence of immunity except when acute infection is suspected. Performed By: #### 1 [id number], [id number] #### [facility] (DEFAULT) [address] [place] [address] Nicotine Metabolite, Urine L Con 03-05-2020 Cotinine LC Negative [id number] [facility] Comment on above: Result Comment: Perf ormed At: [facility] [place] [address] [facility] [place], [place] [id number] Jose Schwartz PhD Ph:[phone] Performed By: #### 1 [id number] #### [facility] (DEFAULT) [address] [place] [address] Vital Signs Date Time Vital Sign Value Performing Clinician Susy ramon 06-05-2024 11:46-0500 Body mass index (BMI) [Ratio] 39.69 kg/m2 Suri LORENZO Work Phone: [facility] 06-05-2024 11:46-0500 Body weight 98.43 kg Suri LORENZO Work Phone: [facility] 06-05-2024 11:46-0500 Diastolic blood pressure 80 mm[Hg] Suri LORENZO Work Phone: [facility] 06-05-2024 11:46-0500 Systolic blood pressure 114 mm[Hg] Suri LORENZO Work Phone: [facility] 05-22-2024 09:57-0400 Body mass index (BMI) [Ratio] 39.1 kg/m2 Jasiel Deshaun DO Work Phone: [facility] 05-22-2024 09:57-0400 Body weight 96.98 kg Jasiel Deshaun DO Work Phone: [facility] 05-22-2024 09:57-0400 Diastolic blood pressure 72 mm[Hg] Jasiel Deshaun DO Work Phone: [facility] 05-22-2024 09:57-0400 Systolic blood pressure 110 mm[Hg] Jasiel Deshaun DO Work Phone: [facility] 05-08-2024 09:31-0400 Body mass index (BMI) [Ratio] 38.59 kg/m2 Suri LORENZO Work Phone: [facility] 05-08-2024 09:31-0400 Body weight 95.71 kg Suri LORENZO Work Phone: [facility] 05-08-2024 09:31-0400 Diastolic blood pressure 78 mm[Hg] Suri LORENZO Work Phone: [facility] 05-08-2024 09:31-0400 Systolic blood pressure 120 mm[Hg] Suri LORENZO Work Phone: [facility] Encounters Encounter Date Encounter Type Care Provider Facility Start: 06-05-2024 End: 06-05-2024 Bamboo flowsheet Suri LORENZO Work Phone: [facility] Start: 06-05-2024 End: 06-05-2024 Bamboo flowsheet Suri LORENZO Work Phone: [facility] Start: 06-05-2024 End: 06-05-2024 flow sheet Suri LORENZO Work Phone: [facility] Comment on above: 32 weeks gestation o f ; Third trimester Start: 06-05-2024 End: 06-05-2024 ambulatory SURI CANALES Not Available Start: 05-22-2024 End: 05-22-2024 Bamboo flowsheet Jasiel Deshaun DO Work Phone: [facility] Start: 05-22-2024 End: 05-22-2024 Bamboo flowsheet Jasiel Deshaun DO Work Phone: [facility] Start: 05-22-2024 End: 05-22-2024 flow sheet Jasiel Deshaun DO Work Phone: [facility] Comment on above: 30 weeks gestation o f ; Third trimester ; Gestational diabetes mellitus (GDM), antepartum, gestational diabetes method of control unspecified Start: 05-22-2024 End: 05-22-2024 ambulatory JASIEL DESHAUN Not Available Start: 05-08-2024 End: 05-08-2024 Bamboo flowsheet Suri LORENZO Work Phone: [facility] Start: 05-08-2024 End: 05-08-2024 Bamboo flowsheet Suri LORENZO Work Phone: [facility] Start: 05-08-2024 End: 05-08-2024 flow sheet Suri LORENZO Work Phone: [facility] Comment on above: 28 weeks gestation o f ; Third trimester ; size inconsistent with dates Start: 05-08-2024 End: 05-08-2024 ambulatory SURI CANALES Not Available Start: 05-01-2024 End: 05-01-2024 Clinisync Result Encounter Jasiel Deshaun DO Work Phone: [facility] Unsolicited Start: 05-01-2024 End: 05-01-2024 Clinisync Result Encounter Jasiel Deshaun DO Work Phone: [facility] Unsolicited Start: 04-17-2024 End: 04-17-2024 ambulatory JASIEL DESHAUN Not Available Start: 04-10-2024 End: 04-10-2024 ambulatory JASIEL R [facility] Start: 03-13-2024 End: 03-13-2024 ambulatory SURI CANALES Not Available Start: 02-13-2024 End: 02-13-2024 ambulatory JASIEL DESHAUN Not Available Start: 01-17-2024 End: 01-17-2024 ambulatory JASIEL DESHAUN Not Available Start: 08-22-2023 End: 08-22-2023 ambulatory JASIEL DESHAUN Not Available Start: 07-04-2023 End: 07-04-2023 ambulatory JASIEL DESHAUN Not Available Start: 08-21-2022 End: 08-21-[address] [facility] Facility: Start: 08-08-2021 End: 08-09-2021 ambulatory SHANTELLE DEAN [facility] Start: 12-21-2020 End: 12-22-2020 ambulatory JIMMY MEEHAN [facility] Start: 12-21-2020 End: 12-21-2020 Subsequent hospital visit by physician Shantelle Dean PA-C Work Phone: [facility] Start: 03-18-2020 End: 03-18-2020 Subsequent hospital visit by physician Shantelle [place] [facility] Procedures Date Procedure Procedure Detail Performing Clinician Start: 06-05-2024 Urnls dip stick/tabl et rgnt non-auto w/o micrscp Suri LORENZO Work Phone: Start: 05-22-2024 Urnls dip stick/tabl et rgnt non-auto w/o micrscp Jasiel Deshaun DO Work Phone: Start: 05-08-2024 Urnls dip stick/tabl et rgnt non-auto w/o micrscp Suri LORENZO Work Phone: Start: 05-01-2024 GLUCOSE TOLERANCE 3 HOUR Jasiel Deshaun DO Work Phone: Start: 12-21-2020 Antibody rubella Ebony Meehan MD Work Phone: Plan of Treatment Date Care Activity Detail Author Start: 02-26-2027 DTaP/Tdap/Td vaccine (7 - Td) DTaP/Tdap/Td vaccine (7 - Td) [place] Start: 08-25-2024 End: 08-25-2024 Patient encounter procedure 08/25/2024 9:00 AM EST Office Visit [facility] [address] [place] [id number] Jasiel Meade, DO [address] [place] [address] [facility] Start: 07-03-2024 End: 07-03-2024 Patient encounter procedure 07/03/2024 10:40 AM EST Routine [facility] [address] [place] [id number] Jasiel Meade DO [address] [place] [address] [facility] Start: 06-19-2024 End: 06-19-2024 Patient encounter procedure 06/19/2024 10:20 AM EST Routine [facility] [address] [place] [id number] Suri Canales PA [address] [facility] [place] [address] [facility] Start: 06-05-2024 End: 06-05-2024 Patient encounter procedure [facility] Comment on above: Arrived Start: 05-22-2024 End: 05-22-2025 US biophysical profile w non stress test US biophysical profile w non stress test Imaging Routine Gestational diabetes mellitus (GDM), antepartum, gestational diabetes method of control unspecified Expected: 05/22/2024 (Approximate), Expires: 05/22/2025 [facility] Comment on above: Expected: 05/22/2024 (Approximate), Expires: 05/22/2025 Start: 05-22-2024 End: 05-22-2025 US for US OB SCAN FOR GROWTH Imaging Routine Third trimester Gestational diabetes mellitus (GDM), antepartum, gestational diabetes method of control unspecified Expected: 05/22/2024 (Approximate), Expires: 05/22/2025 [facility] Work Phone: Comment on above: Expected: 05/22/2024 (Approximate), Expires: 05/22/2025 Start: 05-22-2024 End: 05-22-2024 Patient encounter procedure [facility] Comment on above: Arrived Start: 05-22-2024 End: 05-22-2024 Professional / ancillary services management 05/22/2024 9:00 AM EDT Ancillary Procedure [facility] [address] [facility] [place] [id number] [facility] Start: 05-08-2024 End: 05-08-2025 US for US OB SCAN FOR GROWTH Imaging Routine size inconsistent with dates Expected: 05/08/2024 (Approximate), Expires: 05/08/2025 [facility] Work Phone: Comment on above: Expected: 05/08/2024 (Approximate), Expires: 05/08/2025 Start: 05-08-2024 End: 05-08-2024 Patient encounter procedure [facility] Comment on above: Arrived Start: 03-30-2024 Influenza vaccination Influenza Vacc ine (#1) [facility] Start: 03-18-2023 Screening for malign ant neoplasm [facility] cervix [facility] Start: 06-12-2021 Screening for malign ant neoplasm of cervix Cervical cancer screen [place] Start: 03-30-2021 Influenza vaccination Flu vacc ine (Season Ended[facility] Start: 03-30-2020 Influenza vaccination Flu vaccine (# 1) [place] Start: 06-12-2019 Screening for Chlamy flaco trachomatis Chlamydia screen [place], [place] Start: 09-13-2011 Hepatitis A vaccine (2 of 2 - 2-dose series) Hepatitis A vaccine (2 of 2 - 2-dose series) [place] Start: 2007 COVID-19 Vaccine (1) COVID-19 Vaccin e (1) [facility]: Start: 1995 Hepatitis C screening Hepatitis C sc reen [employer] Phone: End: 12-21-2020 Mumps Antibody, IgG Mumps Antibody, IgG Lab Routine Once for 1 Occurrences starting 12/21/2020 until 12/21/2020 [employer] Phone: Comment on above: Once for 1 Occurrenc es starting 12/21/2020 until 12/21/2020 Mumps Antibody, IgG Mumps Antibo dy, IgG Lab Routine 12/21/2020 4:27 PM EDT [employer] Phone: End: 12-21-2020 Quantiferon TB Gold Quantiferon TB Gold Microbiology Routine Once for 1 Occurrences starting 12/21/2020 until 12/21/2020 [employer] Phone: Comment on above: Once for 1 Occurrenc es starting 12/21/2020 until 12/21/2020 Quantiferon TB Gold Quantiferon TB Gold Microbiology Routine 12/21/2020 4:27 PM [employer] Phone: End: 12-21-2020 Rubeola Antibody, IgG Rubeola Antibody, IgG Lab Routine Once for 1 Occurrences starting 12/21/2020 until 12/21/2020 [employer] Phone: Comment on above: Once for 1 Occurrenc es starting 12/21/2020 until 12/21/2020 Rubeola Antibody, IgG Rubeola An tibody, IgG Lab Routine 12/21/2020 4:27 PM [employer] Phone: End: 12-21-2020 Varicella Zoster Antibody, IgG Varicella Zoster Antibody, IgG Lab Routine Once for 1 Occurrences starting 12/21/2020 until 12/21/2020 [employer] Phone: Comment on above: Once for 1 Occurrenc es starting 12/21/2020 until 12/21/2020 Varicella Zoster Antibody, IgG Varicella Zoster Antibody, IgG Lab Routine 12/21/2020 4:27 PM [employer] Phone: Immunizations Immunization Date Immunization Notes Care Provider [facility] 06-28-2021 influenza virus vacc ine, unspecified formulation Jasiellakeisha Mayoo [employer] Work Phone: [facility] 03-09-2020 tuberculin skin test ; purified protein derivative solution, intradermal [facility], [place] 04-28-2019 influenza, injectabl e, quadrivalent, preservative free [facility], [place] 06-12-2018 influenza, injectabl e, quadrivalent, preservative free [facility], [place] 05-01-2018 tuberculin skin test ; purified protein derivative solution, intradermal [facility], [place] 09-12-2017 hepatitis B vaccine, adult dosage [facility], [place] 04-13-2017 Human Papillomavirus 9-valent vaccine [facility], [place] 04-10-2017 hepatitis B vaccine, adult dosage [facility] 03-07-2017 hepatitis B vaccine, adult dosage [facility], [place] 03-07-2017 meningococcal polysaccharide (groups A, C, Y and W-135) diphtheria toxoid conjugate vaccine (MCV4P) [place], [place] 03-07-2017 tuberculin skin test ; purified protein derivative solution, intradermal [place], [place] 02-26-2017 tetanus toxoid, redu juve diphtheria toxoid, and acellular pertussis vaccine, adsorbed [facility], [place] 02-26-2017 tuberculin skin test ; purified protein derivative solution, intradermal [facility], [place] 08-13-2014 Human Papillomavirus 9-valent vaccine [place], [place] 04-01-2014 meningococcal polysaccharide (groups A, C, Y and W-135) diphtheria toxoid conjugate vaccine (MCV4P) [facility], [place] 02-10-2014 Human Papillomavirus 9-valent vaccine [place] Payers Date Payer Category Payer Private Health Insurance [employer] [id number] 2022 Unknown [employer] [id number] 2022-Present [address] [place] [address] [id number] 2022 Unknown [id number] 2021 Unknown [id number] 2016 Private Health Insurance [employer] [id number] 2016-Present [phone] [address] [place] [address] [id number] 1995 Unknown [id number] [id number]. 175 1995 Unknown [id number] 2.16.840.1.357685.3.579.2. 593 1995 Unknown [id number] 2.16.840.1.495644.3.579.2. 1286 1995 Unknown [id number] 2.16.840.1.929024.3.579.2. 1259 1995 Unknown [id number] 2.16.840.1.276349.3.579.2. 1259 1995 Unknown [id number] 2.16.840.1.133295.3.579.2. 1259 1995 Unknown [id number] 2.16.840.1.605543.3.579.2. 1259 1995 Unknown [id number] 2.16.840.1.898608.3.579.2. 1259 1995 Unknown [id number] 2.16.840.1.680117.3.579.2. 1259 1995 Unknown [id number] 2.16.840.1.243409.3.579.2. 1259 1995 Unknown [id number] 2.16.840.1.692744.3.579.2. 1259 1995 Unknown [id number] [id number]. 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 Start: 1995 Sex Assigned At Female [employer] Work Phone: Start: 04-17-2024 End: 06-05-2024 Alcoholic beverage intake Ex-drinker (finding) [facility] Start: 01-17-2024 End: 04-17-2024 Alcoholic beverage intake [facility] Start: 01-17-2024 Tobacco use panel [facility] Start: 11-04-2023 [facility] Start: 02-20-2023 Gender identity Identifies as female gender (finding) [facility] Start: 02-20-2023 Sexual orientation Heterosexual (finding) [facility] Medical Equipment Procedure Code Equipment Code Equipment Original Text Equipment Identifier Dates Inject 1 each un flory the skin See administration instructions Use four times daily with insulin pen. [id number] Start: 05-26-2024 End: 06-25-2024 History of Present illness Narrative 06-05-2024 BJ Garcia - 06/05/2024 11:20 AM EST Note Date & Type Note Facility 06-05-2024 History of Presen t illness Narrative Reason for Appointment: Patient ID: Holli Jenkins is a 28 y.o. female who presents for No chief complaint on file. Patient presents today for Return OB appointment. MEDICATIONS Current Outpatient Medications Medication Instructions insulin glargine (LANTUS) 10 Units, Subcutaneous, Every evening insulin pen needle 29G x 8mm misc 1 each, Subcutaneous, See admin instructions, Use four times daily with insulin pen. magnesium oxide (MAG-OX) 400 mg, Daily RT [...] nursing note reviewed. Exam conducted with a bottom turner present. Vitals: Estimated body mass index is 39.69 kg/m as calculated from the following: Height as of 23: 5' 2 . Weight as of this encounter: 217 lb. BP: 114/80 Patient's last menstrual period was 10/21/2023. ASSESSMENT & PLAN ICD-10-CM 1. 32 weeks gestation of Z3A.32 POCT urinalysis dipstick manually resulted 2. Third trimester Z34.93 POCT urinalysis dipstick manually resulted Patient presents today for a routine obstetrics appointment. Patient is currently 32w4d with a Estimated Date of Delivery: 07/27/24. Patient has no complaints at this time and will return to clinic in 2 weeks. Documented by Shima العراقي LPN on behalf of: BJ Garcia documented in this encounter [facility] History of Present illness Narrative 05-22-2024 Jasiel Meade DO - 05/22/2024 9:50 AM EDT Note Date & [...] nursing note reviewed. Exam conducted with a bottom turner present. Vitals: Estimated body mass index is [...] nursing note reviewed. Exam conducted with a bottom turner present. 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-Advance Directive 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-Power of Crm Marketing Manager Additional Source Comments INFORMATION SOURCE (unrecogn ized section and content) DATE CREATED AUTHOR 03/12/2020 [facility] DATE CREATED AUTHOR AUTHOR'S ORGANIZ ATION 08/20/2021 [facility] DATE CREATED AUTHOR AUTHOR'S ORGANIZ ATION 02/18/2022 [facility] DATE CREATED AUTHOR AUTHOR'S ORGANIZ ATION 08/25/2022 [facility] DATE CREATED AUTHOR AUTHOR'S ORGANIZ ATION 04/12/2024 [facility] DATE CREATED AUTHOR AUTHOR'S ORGANIZ ATION 06/07/2024 [facility] [employer] Care Teams (unrecognized sec tion and content) Manager Talent Management Relationship Specialty [place] [address] [facility] [place] [address] PCP - General Family Medicine 03/22/23 Manager Talent Management Relationship Specialty [place] [address] [facility] [place] [address] PCP - General Family Medicine 03/22/23 Manager Talent Management Relationship Specialty [place] [address] [place] [address] PCP - General Family Medicine 03/22/23 Suri Canales PA [address] [place] [address] [place] [address] PCP - Medical [employer] 07/30/22 07/29/99 Manager Talent Management Relationship Specialty [place] [address] [place] [address] PCP - General Family Medicine 03/22/23 Suri Canales PA [facility] [place] [address] PCP - Medical [employer] 07/30/22 07/29/99 Manager Talent Management Relationship Specialty Start [place] [address] [place] [address] PCP - General Family Medicine 03/22/23 Suri Canales PA [address] [place] [address] [place] [address] PCP - Medical [employer] 07/30/22 07/29/99 Manager Talent Management Relationship Specialty Start [place] [address] [place] [address] PCP - General Family Medicine 03/22/23 Suri Canales [place] [place] [address] PCP - Medical [employer] 07/30/22 07/29/99 Reason for Visit (unrecogniz [...] BE BASED ON THE PRIMARY CLINICAL RECORDS. [employer] [facility]. provides no warranty or guarantee of the accuracy or completeness of information in this document.
[2024-06-09 17:24] VITALS: BP 122/72; PULSE 104
== END 2024-06-09 17:55 | disposition home or self-care (01) ==
LOC: FBCO 07:09 → FBC 17:14
PROVIDERS: Visit Provider Obstetrics & Gynecology
DX: O24.419 Gestational diabetes mellitus in pregnancy, unspecified control (principal)
CPT/HCPCS: 59025

== ENCOUNTER 2024-06-12 08:17 | Outpatient (OUT) | payer OTHER, SELFPAY ==
--- OUTSIDE RECORDS SUMMARY | 2024-06-12 08:20 | XMS_ITS | CCD ---
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 Name Role Phone Shantelle Dean Primary [...] UA Negative Negative - 4(70) +++ mg/dL [facility] Blood, UA Negative Negative - 50 Bib/mcL [facility] Clarity, UA Clear [facility] Color, UA Yellow [facility] Glucose, UA Negative Negative - 1999(110) ++++ mg/dL [facility] Interpretation and review of laboratory results Abnormal [facility] Ketones, UA Negative Negative - 160(16) ++++ mg/dL [facility] Leukocytes, UA Trace Negative - 500+++ Alvaro/mcL [facility] Nitrite, UA Negative Negative - Positive [facility] pH, UA 7 5 - 9 [facility] Protein, UA Negative Negative - 1999(20) ++++ mg/dL [facility] Spec Grav, UA 1.015 1 - 1.03 [facility] Urobilinogen, UA 0.2 0.2 - 12 mg/dL [facility] Urinalysis macro (dipstick) panel (U)on 05-22-2024 Bilirubin, UA Negative Negative - 4(70) +++ mg/dL [facility] Blood, UA Negative Negative - 50 Bib/mcL [facility] Clarity, UA Clear [facility] re Color, UA Yellow [facility] Glucose, UA Negative Negative - 1999(110) ++++ mg/dL [facility] Interpretation and review of laboratory results Abnormal [facility] Ketones, UA Negative Negative - 160(16) ++++ mg/dL [facility] Leukocytes, UA Positive Negative - 500+++ Alvaro/mcL [facility] Comment on above: small Nitrite, UA Negative Negative - Positive [facility] pH, UA 7 5 - 9 [facility] Protein, UA Negative Negative - 1999(20) ++++ mg/dL [facility] Spec Grav, UA 1.015 1 - 1.03 [facility] Urobilinogen, UA 0.2 0.2 - 12 mg/dL [facility] Urinalysis macro (dipstick) panel (U)on 05-08-2024 Bilirubin, UA Negative Negative - 4(70) +++ mg/dL [facility] Blood, UA Negative Negative - 50 Bib/mcL [facility] Clarity, UA Clear [facility] re Color, UA Yellow [facility] Glucose, UA Negative Negative - 1999(110) ++++ mg/dL [facility] Interpretation and review of laboratory results Abnormal [facility] Ketones, UA Negative Negative - 160(16) ++++ mg/dL [facility] Leukocytes, UA Positive Negative - 500+++ Alvaro/mcL [facility] Comment on above: small Nitrite, UA Negative Negative - Positive [facility] pH, UA 7.0 5 - 9 [facility] e Protein, UA Negative Negative - 1999(20) ++++ mg/dL [facility] Spec Grav, UA 1.020 1 - 1.03 [facility] Urobilinogen, UA 0.2 0.2 - 12 mg/dL [facility] GLUCOSE TOLERANCE 3 HOURon 1 GLUCOSE TOLERANCE 3 HOUR High mg/dL [facility] Comment on above: GLU FAST 97H (<95) C ol: 05/01/24 0722 GLU 1HR 173 (<180) Col: 05/01/24 0823 GLU 2HR 162H (<155) Col: 05/01/24 0924 GLU 3HR 114 (<140) Col: 05/01/24 1022 Interpretation and review of laboratory results Abnormal [facility] PAP ACOG PANEL 2: 21 to 29on 08-25-2022 . . Normal [facility] Comment on above: Performed By: #### 4 [id number] #### [facility] [address] [address] [address] Matias Shukla Age Gdln ACOG Testing 21- Normal [facility] Comment on above: Performed By: #### 4 [id number] #### [facility] [address] [address] [address] Matias Shukla DIAGNOSIS: Comment [facility] Comment on above: Result Comment: NEGA TIVE FOR INTRAEPITHELIAL LESION OR MALIGNANCY. Performed By: #### 4 [id number] #### [facility] [address] [address] [address] Matias Shukla Methodology: Comment Normal [facility] Comment on above: Result Comment: This liquid based ThinPrep(R) pap test was screened with the use of an image guided system. Performed By: #### 4 [id number] #### [facility] [address] [place] [address] Dr. Matias Shukla Note: Comment Normal [facility] Comment on above: Result Comment: The Pap smear is a screening test designed to aid in the detection of premalignant and malignant conditions of the uterine cervix. It is not a diagnostic procedure and should not be used as the sole means of detecting cervical cancer. Both false-positive and false-negative reports do occur. . Performed By: #### 4 [id number] #### [facility] [address] [place] [address] Dr. Matias Shukla Performed by: Comment Normal [facility] Comment on above: Result Comment: Monika Prieto, Pipe Fitter [employer]pper (ASCP) Performed By: #### 4 [id number] #### [facility] [address] [place] [address] Dr. Matias Shukla Reflex Criteria: Comment Normal [facility] Comment on above: Result Comment: The HPV DNA reflex criteria were not met with this specimen result therefore, no HPV testing was performed. . Performed By: #### 4 [id number] #### [facility] [address] [place] [address] Dr. Matias Shukla Specimen adequacy: Comment Normal [facility] Comment on above: Result Comment: Sati sfactory for evaluation. Endocervical and/or squamous metaplastic cells (endocervical component) are present. Performed By: #### 4 [id number] #### [facility] [address] [place] [address] Dr. Matias Shukla MUMPS IGG BLDon 02-07-2022 MUMPS IGG 1.14 Normal [facility] Comment on above: Result Comment: RAN IN TRIPLICATE NORMAL RANGES: < OR = 0.9O NEGATIVE ; NO DETECTABLE IgG ANTIBODY TO MUMPS 0.91 - 1.09 EQUIVOCAL; REPEAT TESTING SUGGESTED > OR = 1.10 POSITIVE ; INDICATES PRESENCE OF DETECTABLE IgG ANTIBODY TO MUMPS Performed By: #### 1 0055, 32005, [id number], [id number] #### [facility] [address] RUBELLAon 02-07-2022 RUBELLA 1.73 Normal [facility] Comment on above: Result Comment: NORM AL RANGES: < OR = 0.9O NEGATIVE ; NO DETECTABLE IgG ANTIBODY TO RUBELLA 0.91 - 1.09 EQUIVOCAL; REPEAT TESTING SUGGESTED > OR = 1.10 POSITIVE ; INDICATES PRESENCE OF DETECTABLE IgG ANTIBODY TO RUBELLA VIRUS Performed By: #### 1 0055, 12861, 74116, 06941 #### [facility] [address] RUBEOLA MEASLES IGGon 2021 RUBEO IGG 4.62 Normal [facility] Comment on above: Result Comment: NORM AL RANGES: < OR = 0.9O NEGATIVE ; NO DETECTABLE IgG ANTIBODY TO RUBEOLA 0.91 - 1.09 EQUIVOCAL; REPEAT TESTING SUGGESTED > OR = 1.10 POSITIVE ; INDICATES PRESENCE OF DETECTABLE IgG ANTIBODY TO RUBEOLA Performed By: #### 1 0055, 20720, 54163, 45954 #### [facility] [address] TB QUANTIFERON PLUSon 2021 MITOGEN MINUS NIL 8.15 IU/mL Normal [facility] Comment on above: Performed By: #### 3 1592 #### [facility] [address] NIL 0.03 IU/mL Normal [facility] Comment on above: Performed By: #### 3 1592 #### [facility] [address] TB QUANTIFERON Negative Normal NEGATIVE [facility] Comment on above: Result Comment: Eric tiferon TB Gold Interpretation (IU/mL): NEGATIVE: M. tuberculosis infection not likely. Nil: <=8.0 TB1 Antigen minus Nil ([id number]): <0.35 OR >=0.35; and <25% of Nil value. TB2 Antigen minus Nil ([id number]-KGW): <0.35 OR >=0.35; and <25% of Nil [...] (https://www.cdc.gov/tb/publications/guidlines/default.htm Performed By: #### 3 1592 #### [facility] [address] TB1 AG 0.03 IU/mL Normal [facility] Comment on above: Performed By: #### 3 1592 #### [facility] [address] TB1 AG MINUS NIL 0.00 IU/mL Normal [facility] Comment on above: Performed By: #### 3 1592 #### [facility] [address] [place] [address], [facility] TB2 AG 0.04 IU/mL Normal [facility] Comment on above: Performed By: #### 3 1592 #### [facility] [address] TB2 AG MINUS NIL 0.01 IU/mL Normal [facility] Comment on above: Performed By: #### 3 1592 #### [facility] [address] VARICELLA ZOSTER IGGon 02-07 VARICELLA IGG 2.60 Normal [facility] Comment on above: Result Comment: NORM AL RANGES: < OR = 0.9O NEGATIVE ; NO DETECTABLE IgG ANTIBODY TO VARICELLA-ZOSTER VIRUS 0.91 - 1.09 EQUIVOCAL; REPEAT TESTING SUGGESTED > OR = 1.10 POSITIVE ; INDICATES PRESENCE OF DETECTABLE IgG ANTIBODY TO VARICELLA-ZOSTER VIRUS Performed By: #### 1 0055, 00495, 69803, 20986 #### [facility] Esha WIGG[address] HPV DNA High Riskon 08-19-19 HPV Interp [facility] Comment on above: Result Comment: [...] purposes. Performed By: #### H PVH #### [employer] [address] [place] [address] Entry Level Mechanical Engineer: Rickey Watson MD HPV Type 16 Not detected [facility] Comment on above: Performed By: #### H PVH #### [address] [address] Entry Level Mechanical Engineer: Rickey Watson MD HPV Type 18 Not detected [facility] Comment on above: Performed By: #### H PVH #### [facility] [address] [place] [address] Entry Level Mechanical Engineer: Rickey Watson MD Other High Risk HPV Not detected [facility] Comment on above: Performed By: #### H PVH #### [employer] [address] [place] [address] Entry Level Mechanical Engineer: Rickey Watson MD HPV DNA High Riskon 08-18-19 22 Source .GENITAL - NOT SPECIFIED Normal [facility] Comment on above: Performed By: #### H PVH #### [address] [address] Entry Level Mechanical Engineer: Rickey Watson MD HPV Sample .THIN PREP Normal [facility] Comment on above: Performed By: #### H PVH #### [address] [address] Entry Level Mechanical Engineer: Rickey Watson MD Chlamydia/GC DNA, TPon 08-10 Chlamydia Probe, TP Negative Normal NEG [facility] Comment on above: Result Comment: CHLA [...] target. Performed By: #### C YTCGP #### [address] [address] Entry Level Mechanical Engineer: Rickey Watson MD Gonorrhea Probe, TP Negative Normal NEG [facility] Comment on above: Result Comment: NEIS [...] target. Performed By: #### C YTCGP #### [address] [address] Entry Level Mechanical Engineer: Rickey Watson MD Cytologyon 08-08-2021 Cytology (NOTE) INTERPRETATION Cervical material, (ThinPrep vial, Imaging-assisted review): Specimen Adequacy: Satisfactory for evaluation. - Endocervical/transfor mation zone component present. - Scant cellularity. Descriptive Diagnosis: Atypical squamous cells of undetermined significance (ASC-US). Pipe F[employer]: AMANDA Michaels M.D. Electronically Signed Out rd08/18/2021 Amendments Originally Reported As: Procedure/Addendum Source: Clinical History LMP: Patient Name: Arvind Rec: Path Number: Fax: Normal [facility] Comment on above: Performed By: #### P PPVP #### [facility] [address] [place], [place] [id number] Entry Level Mechanical Engineer: Rickey Watson MD QuantiFERON TBon 12-24-2020 Quanti Binu minus NIL 8.10 IU/mL Normal [facility] Comment on above: Performed By: #### R UBI, LUIZ, MARITZA, VZI #### [facility] [address] [place], [place] [id number] Entry Level Mechanical Engineer: Rickey Watson MD #### AQF #### [facility] [address] [place] [address] Entry Level Mechanical Engineer: Mark Grossman MD Quanti TB Gold Plus Negative Normal Negative [facility] Comment on above: Result Comment: (NOT [...] Mycobacterium tuberculosis Infection --- [place], 2010 (http://www.cdc.gov/mmwr/preview/mmwrhtml/tf4798b5.htm), for more information concerning test performance in low-prevalence populations and use in occupational screening. Performed By: #### R UBI, LUIZ, MARITZA, VZI #### [place] [address] Entry Level Mechanical Engineer: Rickey Watson MD #### AQF #### [address] [address] Entry Level Mechanical Engineer: Mark Grossman MD Quanti TB1 minus NIL 0.00 IU/mL Normal 0.00-0.34 [facility] Comment on above: Performed By: #### R UBI, LUIZ, MARITZA, VZI #### [place] [address] Entry Level Mechanical Engineer: Rickey Watson MD #### AQF #### [address] [id number] Entry Level Mechanical Engineer: Mark Grossman MD Quanti TB2 minus NIL 0.01 IU/mL Normal 0.00-0.34 [facility] Comment on above: Performed By: #### R UBI, LUIZ, MARITZA, VZI #### [place] [address] Entry Level Mechanical Engineer: Rickey Watson MD #### AQF #### [facility] [employer] [address] [place] [phone] Entry Level Mechanical Engineer: Mark Grossman MD QuantiFERON NIL 0.01 IU/mL Normal [facility] Comment on above: Result Comment: (NOT E) Performed By: [employer] [address] [place] [address] [place]: Carolyn Wei MD Performed By: #### R UBI, LUIZ, MARITZA, VZI #### [place] [address] Entry Level Mechanical Engineer: Rickey Watson MD #### AQF #### [facility] [address] [place], [place] [id number] Entry Level Mechanical Engineer: Mark Grossman MD Measles (Rubeola) Imon 12-22 Measles (Rubeola) Im 3.68 Normal >1.09 [facility] Comment on above: Result Comment: Interpretation: IMMUNE Reference Range: <0.91 Not Immune 0.91-1.09 Equivocal >1.09 Immune Performed By: #### R UBI, LUIZ, MARITZA, VZI #### [address] [id number] Entry Level Mechanical Engineer: Rickey Watson MD #### AQF #### [facility] [address] [place], [place] [phone] Entry Level Mechanical Engineer: Mark Grossman MD Mumps,Immun,Abon 12-22-2020 Mumps,Immun,Ab 1.16 Normal >1.09 [facility] Comment on above: Result Comment: Interpretation: IMMUNE Reference Range: <0.91 Not Immune 0.91-1.09 Equivocal >1.09 Immune Performed By: #### R UBI, LUIZ, MARITZA, VZI #### [address] [address] Entry Level Mechanical Engineer: Rickey Watson MD #### AQF #### [facility] [address] [place], [place] [id number] Entry Level Mechanical Engineer: Mark Grossman MD VZ Immunityon 12-22-2020 VZ Immunity 2.24 Normal >1.09 [facility] Comment on above: Result Comment: Interpretation: IMMUNE Reference Range: <0.91 Not Immune 0.91-1.09 Equivocal >1.09 Immune Performed By: #### R UBI, LUIZ, MARITZA, VZI #### [address] [id number] Entry Level Mechanical Engineer: Rickey Watson MD #### AQF #### [facility] [address] [place] [address] Entry Level Mechanical Engineer: Mark Grossman MD Rubella Ab, IgGon 12-21-2020 Rubella Ab, IgG 16.2 IU/mL Normal [facility] Comment on above: Result Comment: REFERENCE RANGE: <5.0 NON-REACTIVE (non-immune) 5.0 TO 9.9 EQUIVOCAL >=10.0 REACTIVE (immune) Performed By: #### R UBI, LUIZ, MARITZA, VZI #### [facility] [employer] [address], [place] [phone] Entry Level Mechanical Engineer: Rickey Watson MD #### AQF #### [facility] [address] [place] [address] Entry Level Mechanical Engineer: Mark Grossman MD Rubella antibody, IgGOrdered By: Jimmy Meehan on 12-21-2020 Rubella virus IgG Ql (S) 16.2 IU/mL [employer] Phone: Comment on above: REFERENCE RANGE: <5.0 NON-REACTIVE (non-immune) 5.0 TO 9.9 EQUIVOCAL >=10.0 REACTIVE (immune) [facility] [facility] Phone: Lab - Toxicology Resultson 0 03-11-2020 Lab - Toxicology Results [id number] Normal [facility] QuantiFERON TB Gold (In Tube ) LCon 03-08-2020 QuantiFERON Criteria LC Comment [facility] Comment on above: Result Comment: The QuantiFERON-TB Gold Plus result is determined by subtracting the Nil value from either TB antigen (Ag) tube. The mitogen tube serves as a control for the test. Performed By: #### 4 [id number], [id number] #### [facility] (DEFAULT) [address] [place] [address] QuantiFERON M. tuberculosis1 Ag Value LC 0.09 IU/mL [facility] Comment on above: Performed By: #### 4 [id number], [id number] #### [facility] (DEFAULT) [address] [place] [address] QuantiFERON M. tuberculosis2 Ag Value LC 0.08 IU/mL [facility] Comment on above: Performed By: #### 4 [id number], [id number] #### [facility] (DEFAULT) [address] [place] [address] QuantiFERON Mitogen Value LC >10.00 [facility] Comment on above: Result Comment: Perf ormed At: [id number] [place], [place] [id number] Kat Arevalo PhD Ph:[phone] Performed By: #### 4 [id number], [id number] #### [facility] (DEFAULT) [address] [place] [address] QuantiFERON Nil Value LC 0.01 IU/mL [facility] Comment on above: Performed By: #### 4 [id number], [id number] #### [facility] (DEFAULT) [address] [place] [address] QuantiFERON-TB Gold Plus LCo n 03-08-2020 QuantiFERON-TB Gold Plus LC Negative Negative [facility] Comment on above: Result Comment: Perf ormed At: [address] [id number] Kat Arevalo PhD Ph:[phone] Performed By: #### 4 [id number], [id number] #### [facility] (DEFAULT) [address] [place] [address] QuantiFERON Incubation LC Incubation performed. [facility] Comment on above: Result Comment: Perf ormed At: [facility] [address] [place], [place] [id number] Kat Arevalo PhD Ph:[phone] Performed By: #### 4 [id number], [id number] #### [facility] (DEFAULT) [address] [place] [address] HBSab Qnt LCon 03-05-2020 Hep B Surf Ab Quant LC 145.6 mIU/mL Immunity>9.9 [facility] Comment on above: Result Comment: Stat us of Immunity Anti-HBs Level Inconsistent with Immunity 0.0 - 9.9 Consistent with Immunity >9.9 Performed At: [facility] [address] [place] [id number] Kat Arevalo PhD Ph:[phone] Performed By: #### 1 [id number], [id number] #### [facility] (DEFAULT) [address] [place] [address] Measles/Mumps/Rubella Immuni ty LCon 03-05-2020 Mumps Abs, IgG LC 69.5 AU/mL Immune >10.9 [facility] Comment on above: Result Comment: Nega tive <9.0 Equivocal 9.0 - 10.9 Positive >10.9 A positive result generally indicates past exposure to Mumps virus or previous vaccination. Performed At: [id number] [place], [place] [id number] Kat Arevalo PhD Ph:[phone] Performed By: #### 1 [id number], [id number] #### [facility] (DEFAULT) [address] [place] [address] Rubella Antibodies, IgG LC 1.75 index Immune >0.99 [facility] Comment on above: Result Comment: Non- immune <0.90 Equivocal 0.90 - 0.99 Immune >0.99 Performed By: #### 1 [id number], [id number] #### [facility] (DEFAULT) [address] [place] [address] Rubeola Ab, IgG, EIA LC >300.0 Immune >16.4 [facility] Comment on above: Result Comment: Nega tive <13.5 Equivocal 13.5 - 16.4 Positive >16.4 Presence of antibodies to Rubeola is presumptive evidence of immunity except when acute infection is suspected. Performed By: #### 1 [id number], [id number] #### [facility] (DEFAULT) [address] [place] [address] Nicotine Metabolite, Urine L Con 03-05-2020 Cotinine LC Negative Bnmois=701 [facility] Comment on above: Result Comment: Perf ormed At: [facility] [place] [address] [facility] [place], [place] [id number] Jose Schwartz PhD Ph:[phone] Performed By: #### 1 [id number] #### [facility] (DEFAULT) [address] [place] [address] Vital Signs Date Time Vital Sign Value Performing Clinician Susy ramon 06-05-2024 11:46-0500 Body mass index (BMI) [Ratio] 39.69 kg/m2 Suri LORENZO Work Phone: [facility] 06-05-2024 11:46-0500 Body weight 98.43 kg Suri LORENZO Work Phone: [facility] 06-05-2024 11:46-0500 Diastolic blood pressure 80 mm[Hg] Suri LORENZO Work Phone: [facility] 06-05-2024 11:46-0500 Systolic blood pressure 114 mm[Hg] Suri LORENZO Work Phone: [facility] 05-22-2024 09:57-0400 Body mass index (BMI) [Ratio] 39.1 kg/m2 Jasiel Deshaun DO Work Phone: [facility] 05-22-2024 09:57-0400 Body weight 96.98 kg Jasiel Deshaun DO Work Phone: [facility] 05-22-2024 09:57-0400 Diastolic blood pressure 72 mm[Hg] Jasiel Deshaun DO Work Phone: [facility] 05-22-2024 09:57-0400 Systolic blood pressure 110 mm[Hg] Jasiel Deshaun DO Work Phone: [facility] 05-08-2024 09:31-0400 Body mass index (BMI) [Ratio] 38.59 kg/m2 Suri LORENZO Work Phone: [facility] 05-08-2024 09:31-0400 Body weight 95.71 kg Suri LORENZO Work Phone: [facility] 05-08-2024 09:31-0400 Diastolic blood pressure 78 mm[Hg] Suri LORENZO Work Phone: [facility] 05-08-2024 09:31-0400 Systolic blood pressure 120 mm[Hg] Suri LORENZO Work Phone: [facility] Encounters Encounter Date Encounter Type Care Provider Facility Start: 06-05-2024 End: 06-05-2024 Bamboo flowsheet Suri LORENZO Work Phone: [facility] Start: 06-05-2024 End: 06-05-2024 Bamboo flowsheet Suri LORENZO Work Phone: [facility] Start: 06-05-2024 End: 06-05-2024 flow sheet Suri LORENZO Work Phone: [facility] Comment on above: 32 weeks gestation o f ; Third trimester Start: 06-05-2024 End: 06-05-2024 ambulatory SURI CANALES Not Available Start: 05-22-2024 End: 05-22-2024 Bamboo flowsheet Jasiel Deshaun DO Work Phone: [facility] Start: 05-22-2024 End: 05-22-2024 Bamboo flowsheet Jasiel Deshaun DO Work Phone: [facility] Start: 05-22-2024 End: 05-22-2024 flow sheet Jasiel Deshaun DO Work Phone: [facility] Comment on above: 30 weeks gestation o f ; Third trimester ; Gestational diabetes mellitus (GDM), antepartum, gestational diabetes method of control unspecified Start: 05-22-2024 End: 05-22-2024 ambulatory JASIEL DESHAUN Not Available Start: 05-08-2024 End: 05-08-2024 Bamboo flowsheet Suri LORENZO Work Phone: [facility] Start: 05-08-2024 End: 05-08-2024 Bamboo flowsheet Suri LORENZO Work Phone: [facility] Start: 05-08-2024 End: 05-08-2024 [...] Start: 04-10-2024 End: 04-10-2024 ambulatory JASIEL R [facility] Start: 03-13-2024 End: 03-13-2024 ambulatory SURI CANALES Not Available Start: 02-13-2024 End: 02-13-2024 ambulatory JASIEL DESHAUN Not Available Start: 01-17-2024 End: 01-17-2024 ambulatory JASIEL DESHAUN Not Available Start: 08-22-2023 End: 08-22-2023 ambulatory JASIEL DESHAUN Not Available Start: 07-04-2023 End: 07-04-2023 ambulatory JASIEL DESHAUN Not Available Start: 08-21-2022 End: 08-21-[address] [facility]LLAM[facility] Facility: Start: 08-08-2021 End: 08-09-2021 ambulatory SHANTELLE DEAN [facility] Start: 12-21-2020 End: 12-22-2020 ambulatory JIMMY MEEHAN [facility] Start: 12-21-2020 End: 12-21-2020 Subsequent hospital [...] - Td) DTaP/Tdap/Td vaccine (7 - Td) [place], [place] Start: 08-25-2024 End: 08-25-2024 Patient encounter procedure 08/25/2024 9:00 AM EST Office Visit [facility] [address] [place] [id number] Jasiel Meade, DO [address] [place] [address] [facility] Start: 07-03-2024 End: 07-03-2024 Patient encounter procedure 07/03/2024 10:40 AM EST Routine [facility] [address] [place] [id number] Jasiel Meade DO [address] [place] [address] [facility] Start: 06-19-2024 End: 06-19-2024 Patient encounter procedure 06/19/2024 10:20 AM EST Routine [facility] [address] [place] [id number] Suri Canales PA [address] [facility] [place] [address] [facility] Start: 06-05-2024 End: 06-05-2024 [...] EDT Ancillary Procedure [facility] [address] [facility] [place] [address] [facility] Start: 05-08-2024 End: 05-08-2025 [...] ant neoplasm [facility] cervix [facility] Start: 06-12-2021 Screening for malign ant neoplasm of cervix Cervical cancer screen [place], [place] Start: 03-30-2021 Influenza vaccination Flu vacc ine (Season Ended) [facility] Start: 03-30-2020 Influenza vaccination Flu vaccine (# 1) [place], [place] Start: 06-12-2019 Screening for Chlamy flaco trachomatis Chlamydia screen [place], [place] Start: 09-13-2011 Hepatitis A vaccine (2 of 2 - 2-dose series) Hepatitis A vaccine (2 of 2 - 2-dose series) [place], [place] Start: 2007 COVID-19 Vaccine (1) COVID-19 Vaccin e (1) [facility] Start: 1995 Hepatitis C screening Hepatitis C sc reen M2G [employer] Phone: End: 12-21-2020 Mumps Antibody, IgG Mumps Antibody, IgG Lab Routine Once for 1 Occurrences starting 12/21/2020 until 12/21/2020 [employer] Phone: Comment on above: Once for 1 Occurrenc es starting 12/21/2020 until 12/21/2020 Mumps Antibody, IgG Mumps Antibo dy, IgG Lab Routine 12/21/2020 4:27 PM EDT [employer] Phone: End: 12-21-2020 Quantiferon TB Gold Quantiferon TB Gold Microbiology Routine Once for 1 Occurrences starting 12/21/2020 until 12/21/2020 [employer] Phone: Comment on above: Once for 1 Occurrenc es starting 12/21/2020 until 12/21/2020 Quantiferon TB Gold Quantiferon TB Gold Microbiology Routine 12/21/2020 4:27 PM [employer] Phone: End: 12-21-2020 Rubeola Antibody, IgG Rubeola Antibody, IgG Lab Routine Once for 1 Occurrences starting 12/21/2020 until 12/21/2020 [employer] Phone: Comment on above: Once for 1 Occurrenc es starting 12/21/2020 until 12/21/2020 Rubeola Antibody, IgG Rubeola An tibody, IgG Lab Routine 12/21/2020 4:27 PM [employer] Phone: End: 12-21-2020 Varicella Zoster Antibody, IgG Varicella Zoster Antibody, IgG Lab Routine Once for 1 Occurrences starting 12/21/2020 until 12/21/2020 [employer] Phone: Comment on above: Once for 1 Occurrenc es starting 12/21/2020 until 12/21/2020 Varicella Zoster Antibody, IgG Varicella Zoster Antibody, IgG Lab Routine 12/21/2020 4:27 PM [employer] Phone: Immunizations Immunization Date Immunization Notes Care Provider [facility] 06-28-2021 influenza virus vacc ine, unspecified formulation Jasiellakeisha Mayoo [employer] Work Phone: [facility] 03-09-2020 tuberculin skin test ; purified protein derivative solution, intradermal [facility], [place] 04-28-2019 influenza, injectabl e, quadrivalent, preservative free [facility] 06-12-2018 influenza, injectabl e, quadrivalent, preservative free [facility], [place] 05-01-2018 tuberculin skin test ; purified protein derivative solution, intradermal [facility] 09-12-2017 hepatitis B vaccine, adult dosage [facility] 04-13-2017 Human Papillomavirus 9-valent vaccine [facility] 04-10-2017 hepatitis B vaccine, adult dosage [facility] 03-07-2017 hepatitis B vaccine, adult dosage [facility] 03-07-2017 meningococcal polysaccharide (groups A, C, Y and W-135) diphtheria toxoid conjugate vaccine (MCV4P) [place], [place] 03-07-2017 tuberculin skin test ; purified protein derivative solution, intradermal [place], [place] 02-26-2017 tetanus toxoid, redu juve diphtheria toxoid, and acellular pertussis vaccine, adsorbed [facility], [place] 02-26-2017 tuberculin skin test ; purified protein derivative solution, intradermal [facility], [place] 08-13-2014 Human Papillomavirus 9-valent vaccine [place], [place] 04-01-2014 meningococcal polysaccharide (groups A, C, Y and W-135) diphtheria toxoid conjugate vaccine (MCV4P) [facility], [place] 02-10-2014 Human Papillomavirus 9-valent vaccine [place], [place] Payers Date Payer Category Payer Private Health Insurance [employer] [id number] 2022 Unknown [employer] [id number] 2022-Present [address] [place] [address] [id number] 2022 Unknown [id number] 2021 Unknown [id number] 2016 Private Health Insurance [employer] [id number] 2016-Present [phone] [address] [place] [address] [id number] 1995 Unknown [id number] 2.16.840.1.771414.3.579.2. 175 1995 Unknown [id number] 2.16.840.1.616924.3.579.2. 593 1995 Unknown [id number] 2.16.840.1.747284.3.579.2. 1286 1995 Unknown [id number] 2.16.840.1.826504.3.579.2. 1259 1995 Unknown [id number] 2.16.840.1.041911.3.579.2. 1259 1995 Unknown [id number] 2.16.840.1.475308.3.579.2. 1259 1995 Unknown [id number] 2.16.840.1.205588.3.579.2. 1259 1995 Unknown [id number] 2.16.840.1.236458.3.579.2. 1259 1995 Unknown [id number] 2.16.840.1.370550.3.579.2. 1259 1995 Unknown [id number] 2.16.840.1.427831.3.579.2. 1259 1995 Unknown [id number] 2.16.840.1.292381.3.579.2. 1259 1995 Unknown [id number] 2.16.840.1.359503.3.579.2. 1259 1959 Unknown [id number] Social History Date Type Detail Facility Start: 03-18-2020 End: 01-17-2024 Tobacco smoking status NHIS Never smoker [facility] Start: 03-18-2020 End: 01-17-2024 Tobacco use and exposure Never used [facility] Start: 02-05-2017 Alcohol Comment rarely [facility] Sex Assigned At Not on file [employer] [facility]RE[facility] WALKER Start: 1995 Sex Assigned At Female [place] Work Phone: Start: 04-17-2024 End: 06-05-2024 Alcoholic beverage intake Ex-drinker (finding) [facility] Start: 01-17-2024 End: 04-17-2024 Alcoholic beverage intake [facility] Start: 01-17-2024 Tobacco use panel [facility] Start: 11-04-2023 [facility] Start: 02-20-2023 Gender identity Identifies as female gender (finding) [facility] Start: 02-20-2023 Sexual orientation Heterosexual (finding) [facility] Medical Equipment Procedure Code Equipment Code Equipment Original Text Equipment Identifier Dates Inject 1 each un flory the skin See administration instructions Use four times daily with insulin pen. [id number] Start: 05-26-2024 End: 06-25-2024 History of Present [...] nursing note reviewed. Exam conducted with a software configuration specialist present. Vitals: Estimated body mass index is [...] nursing note reviewed. Exam conducted with a software configuration specialist present. Vitals: Estimated body mass index is [...] nursing note reviewed. Exam conducted with a software configuration specialist present. Vitals: Estimated body mass index is [...] FoundDocuments on File Type Date Recorded Patient Health Informatics Instructor Expl anation ACP-Advance Directive ACP-Power of Statistics Teacher Additional Source Comments INFORMATION SOURCE (unrecogn ized section and content) DATE CREATED AUTHOR 03/12/2020 [facility] DATE CREATED AUTHOR AUTHOR'S ORGANIZ ATION 08/20/2021 [facility] DATE CREATED AUTHOR AUTHOR'S ORGANIZ ATION 02/18/2022 [facility] DATE CREATED AUTHOR AUTHOR'S ORGANIZ ATION 08/25/2022 [facility] DATE CREATED AUTHOR AUTHOR'S ORGANIZ ATION 04/12/2024 [facility] DATE CREATED AUTHOR AUTHOR'S ORGANIZ ATION 06/07/2024 [facility] Special[facility] EPIC Care Teams (unrecognized sec tion and content) 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 Leader/Control 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 Relationship Specialty [place] [address] [place] [place] [address] PCP - General Family Medicine 03/22/23 Crew Leader/Control 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 Relationship Specialty [place] [address] [address] [place] [place] [address] PCP - General Family Medicine 03/22/23 Crew Leader/Control 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 Relationship Specialty Start [place] [address] [place] [address] PCP - General Family Medicine 03/22/23 Suri Canales PA [address] [place] [address] [place] [address] PCP - Medical [employer] 07/30/22 07/29/99 Crew Leader/Control 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 Relationship Specialty Start [place] [address] [place] [address] PCP - General Family Medicine 03/22/23 Suri Canales PA [facility] [place] [address] PCP - Medical [employer] 07/30/22 07/29/99 Crew Leader/Control 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 Relationship Specialty Start [place] [address] [place] [address] PCP - General Family Medicine 03/22/23 Suri Canales PA [address] [place] [address] [place] [address] PCP - Medical [employer] 07/30/22 07/29/99 Crew Leader/Control 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 Relationship Specialty Start [place] [address] [place] [address] PCP - General Family Medicine 03/22/23 Suri Canales PA [facility] [place] [address] PCP - Medical [employer] 07/30/22 07/29/99 Reason for Visit (unrecogniz [...] BE BASED ON THE PRIMARY CLINICAL RECORDS. [employer] [facility]. provides no warranty or guarantee of the accuracy or completeness of information in this document.
--- NOTE | 2024-06-12 09:16 | US_ITS ---
[address] [address] Patient Name: ZAKIA SEARS MRN: [id number] date: 1995 Sex: F Assigned Patient Location: [facility] Current Patient Location: Accession/Order Number: [id number] Exam Date: 06/12/2024 09:25 Report Date: 06/13/2024 04:10 At the request of: JASIEL RAMOS Procedure: US OB BPP w non-stress EXAMINATION: US OB BPP w non-stress HISTORY:GESTATIONAL DIABETES MELLITUS O24.419 COMPARISON: Ultrasound OB biophysical 06/05/2024 TECHNIQUE: Ultrasound biophysical profile was performed in the radiology department. BREATHING MOVEMENTS: 2 GROSS BODY MOVEMENTS: 2 TONE: 2 QUALITATIVE AMNIOTIC FLUID VOLUME: 2 PRESENTATION: CEPHALIC HEART RATE: 150.43 bpm AMNIOTIC FLUID VOLUME: 17.75 cm GESTATIONAL AGE: 33 weeks 4 days US/US OB BPP w non-stress IMPRESSION: Total biophysical profile score: 8 Electronically authenticated by: MARIAM GARCIA Date: 06/13/2024 04:10
[2024-06-12 10:00] VITALS: BP 110/59; PULSE 92
== END 2024-06-12 11:15 | disposition home or self-care (01) ==
LOC: US 08:17 → FBC 09:03
PROVIDERS: Visit Provider Obstetrics & Gynecology
DX: O24.419 Gestational diabetes mellitus in pregnancy, unspecified control (principal); Z3A.33 33 weeks gestation of pregnancy
CPT/HCPCS: 76818

== ENCOUNTER 2024-06-16 06:36 | Outpatient (OUT) | payer OTHER, SELFPAY ==
--- OUTSIDE RECORDS SUMMARY | 2024-06-16 06:39 | XMS_ITS | CCD ---
Author Organization [facility] Care Team Providers Care Recreational Assistant Name Role Phone Shantelle Dean Primary Care Provider [phone] JIMMY MEEHAN Referring Unavailable SHANTELLE DEAN Primary [...] UA Negative Negative - 4(70) +++ mg/dL [facility] Blood, UA Negative Negative - 50 Bib/mcL [facility] Healthcare Clarity, UA Clear [facility] Color, UA Yellow [facility] Glucose, UA Negative Negative - 1999(110) ++++ mg/dL [facility] Interpretation and review of laboratory results Abnormal [facility] Ketones, UA Negative Negative - 160(16) ++++ mg/dL [facility] Leukocytes, UA Trace Negative - 500+++ Alvaro/mcL [facility] Nitrite, UA Negative Negative - Positive [facility] pH, UA 7 5 - 9 [facility] Protein, UA Negative Negative - 1999(20) ++++ mg/dL [facility] Spec Grav, UA 1.015 1 - 1.03 [facility] Urobilinogen, UA 0.2 0.2 - 12 mg/dL [facility] Urinalysis macro (dipstick) panel (U)on 05-22-2024 Bilirubin, UA Negative Negative - 4(70) +++ mg/dL [facility] Blood, UA Negative Negative - 50 Bib/mcL [facility] Clarity, UA Clear [facility] re Color, UA Yellow [facility] Glucose, UA Negative Negative - 1999(110) ++++ mg/dL [facility] Interpretation and review of laboratory results Abnormal [facility] Ketones, UA Negative Negative - 160(16) ++++ mg/dL [facility] Leukocytes, UA Positive Negative - 500+++ Alvaro/mcL [facility] Healthcare Comment on above: small Nitrite, UA Negative Negative - Positive [facility] pH, UA 7 5 - 9 [facility] Protein, UA Negative Negative - 1999(20) ++++ mg/dL [facility] Spec Grav, UA 1.015 1 - 1.03 [facility] Urobilinogen, UA 0.2 0.2 - 12 mg/dL [facility] Urinalysis macro (dipstick) panel (U)on 05-08-2024 Bilirubin, UA Negative Negative - 4(70) +++ mg/dL [facility] Blood, UA Negative Negative - 50 Bib/mcL [facility] Clarity, UA Clear [facility] re Color, UA Yellow [facility] Glucose, UA Negative Negative - 1999(110) ++++ mg/dL [facility] Interpretation and review of laboratory results Abnormal [facility] Ketones, UA Negative Negative - 160(16) ++++ mg/dL [facility] Leukocytes, UA Positive Negative - 500+++ Alvaro/mcL [facility] Comment on above: small Nitrite, UA Negative Negative - Positive [facility] pH, UA 7.0 5 - 9 [facility] e Protein, UA Negative Negative - 1999(20) ++++ mg/dL [facility] Spec Grav, UA 1.020 1 - 1.03 [facility] Urobilinogen, UA 0.2 0.2 - 12 mg/dL [facility] GLUCOSE TOLERANCE 3 HOURon 1 GLUCOSE TOLERANCE 3 HOUR High mg/dL [facility] Comment on above: GLU FAST 97H (<95) C ol: 05/01/24 0722 GLU 1HR 173 (<180) Col: 05/01/24 0823 GLU 2HR 162H (<155) Col: 05/01/24 0924 GLU 3HR 114 (<140) Col: 05/01/24 1022 Interpretation and review of laboratory results Abnormal [facility] e PAP ACOG PANEL 2: 21 to 29on 08-25-2022 . . Normal [facility] Comment on above: Performed By: #### 4 [id number] #### [facility] [address] [address] [address] Matias Shukla Age Gdln ACOG Testing 21- Normal [facility] Comment on above: Performed By: #### 4 [id number] #### [facility] [address] [address] [address] Matias Shukla DIAGNOSIS: Comment [facility] Comment on above: Result Comment: NEGA TIVE FOR INTRAEPITHELIAL LESION OR MALIGNANCY. Performed By: #### 4 [id number] #### [facility] [address] [address] [address] Matias Shukla Methodology: Comment Normal [facility] Comment on above: Result Comment: This liquid based ThinPrep(R) pap test was screened with the use of an image guided system. Performed By: #### 4 [id number] #### [facility] [address] [place] [address] Dr. Matias Shukla Note: Comment Normal [facility] Comment on above: Result Comment: The Pap smear is a screening test designed to aid in the detection of premalignant and malignant conditions of the uterine cervix. It is not a diagnostic procedure and should not be used as the sole means of detecting cervical cancer. Both false-positive and false-negative reports do occur. . Performed By: #### 4 [id number] #### [facility] [address] [place] [address] Dr. Matias Shukla Performed by: Comment Normal [facility] Comment on above: Result Comment: Monika Prieto, Offbearer (ASCP) Performed By: #### 4 [id number] #### [facility] [address] [place] [address] Dr. Matias Shukla Reflex Criteria: Comment Normal [facility] Comment on above: Result Comment: The HPV DNA reflex criteria were not met with this specimen result therefore, no HPV testing was performed. . Performed By: #### 4 [id number] #### [facility] [address] [place] [address] Dr. Matias Shukla Specimen adequacy: Comment Normal [facility] Comment on above: Result Comment: Sati sfactory for evaluation. Endocervical and/or squamous metaplastic cells (endocervical component) are present. Performed By: #### 4 [id number] #### [facility] [address] [place] [address] Dr. Matias Shukla MUMPS IGG BLDon 02-07-2022 MUMPS IGG 1.14 Normal [facility] Comment on above: Result Comment: RAN IN TRIPLICATE NORMAL RANGES: < OR = 0.9O NEGATIVE ; NO DETECTABLE IgG ANTIBODY TO MUMPS 0.91 - 1.09 EQUIVOCAL; REPEAT TESTING SUGGESTED > OR = 1.10 POSITIVE ; INDICATES PRESENCE OF DETECTABLE IgG ANTIBODY TO MUMPS Performed By: #### 1 0055, [id number], [id number], [id number] #### [facility] [address] RUBELLAon 02-07-2022 RUBELLA 1.73 Normal [facility] Comment on above: Result Comment: NORM AL RANGES: < OR = 0.9O NEGATIVE ; NO DETECTABLE IgG ANTIBODY TO RUBELLA 0.91 - 1.09 EQUIVOCAL; REPEAT TESTING SUGGESTED > OR = 1.10 POSITIVE ; INDICATES PRESENCE OF DETECTABLE IgG ANTIBODY TO RUBELLA VIRUS Performed By: #### 1 0055, 02184, 14111, [id number] #### [facility] [address] RUBEOLA MEASLES IGGon 2021 RUBEO IGG 4.62 Normal [facility] Comment on above: Result Comment: NORM AL RANGES: < OR = 0.9O NEGATIVE ; NO DETECTABLE IgG ANTIBODY TO RUBEOLA 0.91 - 1.09 EQUIVOCAL; REPEAT TESTING SUGGESTED > OR = 1.10 POSITIVE ; INDICATES PRESENCE OF DETECTABLE IgG ANTIBODY TO RUBEOLA Performed By: #### 1 0055, 57214, 07943, [id number] #### [facility] [address] TB QUANTIFERON PLUSon 2021 MITOGEN MINUS NIL 8.15 IU/mL Normal [facility] Comment on above: Performed By: #### 3 1592 #### [facility] [address] NIL 0.03 IU/mL Normal [facility] Comment on above: Performed By: #### 3 1592 #### [facility] [address] TB QUANTIFERON Negative Normal NEGATIVE [facility] Comment on above: Result Comment: Eric tiferon TB Gold Interpretation (IU/mL): NEGATIVE: M. tuberculosis infection not likely. Nil: <=8.0 TB1 Antigen minus Nil ([id number]): <0.35 OR >=0.35; and <25% of Nil value. TB2 Antigen minus Nil (LM6AU-JMS): <0.35 OR >=0.35; and <25% of Nil [...] (https://www.cdc.gov/tb/publications/guidlines/default.htm Performed By: #### 3 1592 #### [facility] [address] TB1 AG 0.03 IU/mL Normal [facility] Comment on above: Performed By: #### 3 1592 #### [facility] [address] TB1 AG MINUS NIL 0.00 IU/mL Normal [facility] Comment on above: Performed By: #### 3 1592 #### [facility] [address] [place] [address], [facility] TB2 AG 0.04 IU/mL Normal [facility] Comment on above: Performed By: #### 3 1592 #### [facility] [address] TB2 AG MINUS NIL 0.01 IU/mL Normal [facility] Comment on above: Performed By: #### 3 1592 #### [facility] [address] VARICELLA ZOSTER IGGon 02-07 VARICELLA IGG 2.60 Normal [facility] Comment on above: Result Comment: NORM AL RANGES: < OR = 0.9O NEGATIVE ; NO DETECTABLE IgG ANTIBODY TO VARICELLA-ZOSTER VIRUS 0.91 - 1.09 EQUIVOCAL; REPEAT TESTING SUGGESTED > OR = 1.10 POSITIVE ; INDICATES PRESENCE OF DETECTABLE IgG ANTIBODY TO VARICELLA-ZOSTER VIRUS Performed By: #### 1 0055, [id number], 25805, 82371 #### [facility] Esha W[address] HPV DNA High Riskon 08-19-19 HPV Interp [facility] Comment on above: Result Comment: [...] purposes. Performed By: #### H PVH #### [employer] [address] [place] [address] Property Claim Rep: Rickey Watson MD HPV Type 16 Not detected [facility] Comment on above: Performed By: #### H PVH #### [address] [address] Property Claim Rep: Rickey Watson MD HPV Type 18 Not detected [facility] Comment on above: Performed By: #### H PVH #### [facility] [address] [place] [address] Property Claim Rep: Rickey Watson MD Other High Risk HPV Not detected [facility] Comment on above: Performed By: #### H PVH #### [employer] [address] [place] [address] Property Claim Rep: Rickey Watson MD HPV DNA High Riskon 08-18-19 22 Source .GENITAL - NOT SPECIFIED Normal [facility] Comment on above: Performed By: #### H PVH #### [address] [address] Property Claim Rep: Rickey Watson MD HPV Sample .THIN PREP Normal [facility] Comment on above: Performed By: #### H PVH #### [address] [address] Property Claim Rep: Rickey Watson MD Chlamydia/GC DNA, TPon 08-10 Chlamydia Probe, TP Negative Normal NEG [facility] Comment on above: Result Comment: CHLA [...] target. Performed By: #### C YTCGP #### [address] [address] Property Claim Rep: Rickey Watson MD Gonorrhea Probe, TP Negative Normal NEG [facility] Comment on above: Result Comment: NEIS [...] target. Performed By: #### C YTCGP #### [address] [address] Property Claim Rep: Rickey Watson MD Cytologyon 08-08-2021 Cytology (NOTE) INTERPRETATION Cervical material, (ThinPrep vial, Imaging-assisted review): Specimen Adequacy: Satisfactory for evaluation. - Endocervical/transfor mation zone component present. - Scant cellularity. Descriptive Diagnosis: Atypical squamous cells of undetermined significance (ASC-US). Offbearer: AMANDA Michaels M.D. Electronically Signed Out rd08/18/2021 Amendments Originally Reported As: Procedure/Addendum Source: Clinical History LMP: Patient Name: Arvind Rec: Path Number: Fax: Normal [facility] Comment on above: Performed By: #### P PPVP #### [facility] [address], [place] [id number] Property Claim Rep: Rickey Watson MD QuantiFERON TBon 12-24-2020 Quanti Binu minus NIL 8.10 IU/mL Normal [facility] Comment on above: Performed By: #### R UBI, LUIZ, MARITZA, VZI #### [facility] [address] [place], [place] [id number] Property Claim Rep: Rickey Watson MD #### AQF #### [facility] [address] [place] [address] Property Claim Rep: Mark Grossman MD Quanti TB Gold Plus Negative Normal Negative [facility] Comment on above: Result Comment: (NOT [...] Mycobacterium tuberculosis Infection --- [place], 2010 (http://www.cdc.gov/mmwr/preview/mmwrhtml/lo4797w1.htm), for more information concerning test performance in low-prevalence populations and use in occupational screening. Performed By: #### R UBI, LUIZ, MARITZA, VZI #### [place] [address] Property Claim Rep: Rickey Watson MD #### AQF #### [address] [address] Property Claim Rep: Mark Grossman MD Quanti TB1 minus NIL 0.00 IU/mL Normal 0.00-0.34 [facility] Comment on above: Performed By: #### R UBI, LUIZ, MARITZA, VZI #### [place] [address] Property Claim Rep: Rickey Watson MD #### AQF #### [address] [id number] Property Claim Rep: Mark Grossman MD Quanti TB2 minus NIL 0.01 IU/mL Normal 0.00-0.34 [facility] Comment on above: Performed By: #### R UBI, LUIZ, MARITZA, VZI #### [place] [address] Property Claim Rep: Rickey Watson MD #### AQF #### [facility] [employer] [address] [place] [id number] Property Claim Rep: Mark Grossman MD QuantiFERON NIL 0.01 IU/mL Normal [facility] Comment on above: Result Comment: (NOT E) Performed By: [employer] [address] [place] [address] Tempering Kiln Tender: Carolyn Wei MD Performed By: #### R UBI, LUIZ, MARITZA, VZI #### [place] [address] Property Claim Rep: Rickey Watson MD #### AQF #### [facility] [address] [place], [place] [id number] Property Claim Rep: Mark Grossman MD Measles (Rubeola) Imon 12-22 Measles (Rubeola) Im 3.68 Normal >1.09 [facility] Comment on above: Result Comment: Interpretation: IMMUNE Reference Range: <0.91 Not Immune 0.91-1.09 Equivocal >1.09 Immune Performed By: #### R UBI, LUIZ, MARITZA, VZI #### [address] [id number] Property Claim Rep: Rickey Watson MD #### AQF #### [facility] [address] [place], [place] [id number] Property Claim Rep: Mark Grossman MD Mumps,Immun,Abon 12-22-2020 Mumps,Immun,Ab 1.16 Normal >1.09 [facility] Comment on above: Result Comment: Interpretation: IMMUNE Reference Range: <0.91 Not Immune 0.91-1.09 Equivocal >1.09 Immune Performed By: #### R UBI, LUIZ, MARITZA, VZI #### [address] [address] Property Claim Rep: Rickey Watson MD #### AQF #### [facility] [address] [place], [place] [id number] Property Claim Rep: Mark Grossman MD VZ Immunityon 12-22-2020 VZ Immunity 2.24 Normal >1.09 [facility] Comment on above: Result Comment: Interpretation: IMMUNE Reference Range: <0.91 Not Immune 0.91-1.09 Equivocal >1.09 Immune Performed By: #### R UBI, ULIZ, MARITZA, VZI #### [address] [id number] Property Claim Rep: iRckey Watson MD #### AQF #### [facility] [address] [place] [address] Property Claim Rep: Mark Grossman MD Rubella Ab, IgGon 12-21-2020 Rubella Ab, IgG 16.2 IU/mL Normal [facility] Comment on above: Result Comment: REFERENCE RANGE: <5.0 NON-REACTIVE (non-immune) 5.0 TO 9.9 EQUIVOCAL >=10.0 REACTIVE (immune) Performed By: #### R UBI, LUIZ, MARITZA, VZI #### [facility] [employer] [address] [place], [place] [id number] Property Claim Rep: Rickey Watson MD #### AQF #### [facility] [address] [place] [address] Property Claim Rep: Mark Grossman MD Rubella antibody, IgGOrdered By: Jimmy Meehan on 12-21-2020 Rubella virus IgG Ql (S) 16.2 IU/mL [employer] Phone: Comment on above: REFERENCE RANGE: <5.0 NON-REACTIVE (non-immune) 5.0 TO 9.9 EQUIVOCAL >=10.0 REACTIVE (immune) [employer] Phone: Lab - Toxicology Resultson 0 03-11-2020 Lab - Toxicology Results [id number] Normal [facility] QuantiFERON TB Gold (In Tube ) LCon 03-08-2020 QuantiFERON Criteria LC Comment [facility] Comment on above: Result Comment: The QuantiFERON-TB Gold Plus result is determined by subtracting the Nil value from either TB antigen (Ag) tube. The mitogen tube serves as a control for the test. Performed By: #### 4 [id number], [id number] #### [facility] (DEFAULT) [address] [place] [address] QuantiFERON M. tuberculosis1 Ag Value LC 0.09 IU/mL [facility] Comment on above: Performed By: #### 4 [id number], [id number] #### [facility] (DEFAULT) [address] [place] [address] QuantiFERON M. tuberculosis2 Ag Value LC 0.08 IU/mL [facility] Comment on above: Performed By: #### 4 [id number], [id number] #### [facility] (DEFAULT) [address] [place] [address] QuantiFERON Mitogen Value LC >10.00 [facility] Comment on above: Result Comment: Perf ormed At: [id number] [place], [place] [id number] Kat Arevalo PhD Ph:[phone] Performed By: #### 4 [id number], [id number] #### [facility] (DEFAULT) [address] [place] [address] QuantiFERON Nil Value LC 0.01 IU/mL [facility] Comment on above: Performed By: #### 4 [id number], [id number] #### [facility] (DEFAULT) [address] [place] [address] QuantiFERON-TB Gold Plus LCo n 03-08-2020 QuantiFERON-TB Gold Plus LC Negative Negative [facility] Comment on above: Result Comment: Perf ormed At: [address] [id number] Kat Arevalo PhD Ph:[phone] Performed By: #### 4 [id number], [id number] #### [facility] (DEFAULT) [address] [place] [address] QuantiFERON Incubation LC Incubation performed. [facility] Comment on above: Result Comment: Perf ormed At: [facility] [address] [place], [place] [id number] Kat Arevalo PhD Ph:[phone] Performed By: #### 4 [id number], [id number] #### [facility] (DEFAULT) [address] [place] [address] HBSab Qnt LCon 03-05-2020 Hep B Surf Ab Quant LC 145.6 mIU/mL Immunity>9.9 [facility] Comment on above: Result Comment: Stat us of Immunity Anti-HBs Level Inconsistent with Immunity 0.0 - 9.9 Consistent with Immunity >9.9 Performed At: [facility] [address] [place] [id number] Kat Arevalo PhD Ph:[phone] Performed By: #### 1 [id number], [id number] #### [facility] (DEFAULT) [address] [place] [address] Measles/Mumps/Rubella Immuni ty LCon 03-05-2020 Mumps Abs, IgG LC 69.5 AU/mL Immune >10.9 [facility] Comment on above: Result Comment: Nega tive <9.0 Equivocal 9.0 - 10.9 Positive >10.9 A positive result generally indicates past exposure to Mumps virus or previous vaccination. Performed At: [id number] [place], [place] [id number] Kat Arevalo PhD Ph:[phone] Performed By: #### 1 [id number], [id number] #### [facility] (DEFAULT) [address] [place] [address] Rubella Antibodies, IgG LC 1.75 index Immune >0.99 [facility] Comment on above: Result Comment: Non- immune <0.90 Equivocal 0.90 - 0.99 Immune >0.99 Performed By: #### 1 [id number], [id number] #### [facility] (DEFAULT) [address] [place] [address] Rubeola Ab, IgG, EIA LC >300.0 Immune >16.4 [facility] Comment on above: Result Comment: Nega tive <13.5 Equivocal 13.5 - 16.4 Positive >16.4 Presence of antibodies to Rubeola is presumptive evidence of immunity except when acute infection is suspected. Performed By: #### 1 [id number], [id number] #### [facility] (DEFAULT) [address] [place] [address] Nicotine Metabolite, Urine L Con 03-05-2020 Cotinine LC Negative Sftbpr=903 [facility] Comment on above: Result Comment: Perf ormed At: [facility] [place] [address] [facility] [place], [place] [id number] Jose Schwartz PhD Ph:[phone] Performed By: #### 1 [id number] #### [facility] (DEFAULT) [address] [place] [address] Vital Signs Date Time Vital Sign Value Performing Clinician Susy ramon 06-05-2024 11:46-0500 Body mass index (BMI) [Ratio] 39.69 kg/m2 Suri LORENZO Work Phone: [facility] 06-05-2024 11:46-0500 Body weight 98.43 kg Suri LORENZO Work Phone: [facility] 06-05-2024 11:46-0500 Diastolic blood pressure 80 mm[Hg] Suri LORENZO Work Phone: [facility] 06-05-2024 11:46-0500 Systolic blood pressure 114 mm[Hg] Suri LORENZO Work Phone: [facility] 05-22-2024 09:57-0400 Body mass index (BMI) [Ratio] 39.1 kg/m2 Jasiel Deshaun DO Work Phone: [facility] 05-22-2024 09:57-0400 Body weight 96.98 kg Jasiel Deshaun DO Work Phone: [facility] 05-22-2024 09:57-0400 Diastolic blood pressure 72 mm[Hg] Jasiel Deshaun DO Work Phone: [facility] 05-22-2024 09:57-0400 Systolic blood pressure 110 mm[Hg] Jasiel Deshaun DO Work Phone: [facility] 05-08-2024 09:31-0400 Body mass index (BMI) [Ratio] 38.59 kg/m2 Suri LORENZO Work Phone: [facility] 05-08-2024 09:31-0400 Body weight 95.71 kg Suri LORENZO Work Phone: [facility] 05-08-2024 09:31-0400 Diastolic blood pressure 78 mm[Hg] Suri LORENZO Work Phone: [facility] 05-08-2024 09:31-0400 Systolic blood pressure 120 mm[Hg] Suri LORENZO Work Phone: [facility] Encounters Encounter Date Encounter Type Care Provider Facility Start: 06-05-2024 End: 06-05-2024 Bamboo flowsheet Suri LORENZO Work Phone: [facility] Start: 06-05-2024 End: 06-05-2024 Bamboo flowsheet Suri LORENZO Work Phone: [facility] Start: 06-05-2024 End: 06-05-2024 flow sheet Suri LORENZO Work Phone: [facility] Comment on above: 32 weeks gestation o f ; Third trimester Start: 06-05-2024 End: 06-05-2024 ambulatory SURI CANALES Not Available Start: 05-22-2024 End: 05-22-2024 Bamboo flowsheet Jasiel Deshaun DO Work Phone: [facility] Start: 05-22-2024 End: 05-22-2024 Bamboo flowsheet Jasiel Deshaun DO Work Phone: [facility] Start: 05-22-2024 End: 05-22-2024 flow sheet Jasiel Deshaun DO Work Phone: [facility] Comment on above: 30 weeks gestation o f ; Third trimester ; Gestational diabetes mellitus (GDM), antepartum, gestational diabetes method of control unspecified Start: 05-22-2024 End: 05-22-2024 ambulatory JASIEL DESHAUN Not Available Start: 05-08-2024 End: 05-08-2024 Bamboo flowsheet Suri LORENZO Work Phone: [facility] Start: 05-08-2024 End: 05-08-2024 Bamboo flowsheet Suri LORENZO Work Phone: [facility] Start: 05-08-2024 End: 05-08-2024 [...] Start: 04-10-2024 End: 04-10-2024 ambulatory JASIEL R [facility] Start: 03-13-2024 End: 03-13-2024 ambulatory SURI CANALES Not Available Start: 02-13-2024 End: 02-13-2024 ambulatory JASIEL DESHAUN Not Available Start: 01-17-2024 End: 01-17-2024 ambulatory JASIEL DESHAUN Not Available Start: 08-22-2023 End: 08-22-2023 ambulatory JASIEL DESHAUN Not Available Start: 07-04-2023 End: 07-04-2023 ambulatory JASIEL DESHAUN Not Available Start: 08-21-2022 End: 08-21-[address] [facility] Facility: Start: 08-08-2021 End: 08-09-2021 ambulatory SHANTELLE DEAN [facility] Start: 12-21-2020 End: 12-22-2020 ambulatory JIMMY MEEHAN [facility] Start: 12-21-2020 End: 12-21-2020 Subsequent hospital [...] - Td) DTaP/Tdap/Td vaccine (7 - Td) [place], [place] Start: 08-25-2024 End: 08-25-2024 Patient encounter procedure 08/25/2024 9:00 AM EST Office Visit [facility] [address] [place] [id number] Jasiel Meade, DO [address] [place] [address] [facility] Start: 07-03-2024 End: 07-03-2024 Patient encounter procedure 07/03/2024 10:40 AM EST Routine [facility] [address] [place] [id number] Jasiel Meade DO [address] [place] [address] [facility] Start: 06-19-2024 End: 06-19-2024 Patient encounter procedure 06/19/2024 10:20 AM EST Routine [facility] [address] [place] [id number] Suri Canales PA [address] [facility] [place] [address] [facility] Start: 06-05-2024 End: 06-05-2024 [...] EDT Ancillary Procedure [facility] [address] [facility] [place] [id number] [facility] Start: 05-08-2024 End: 05-08-2025 [...] [email or web address] Start: 06-12-2021 Screening for malign ant neoplasm of cervix Cervical cancer screen [place] Start: 03-30-2021 Influenza vaccination Flu vacc ine (Season Ended) [email or web address]: Start: 03-30-2020 Influenza vaccination Flu vaccine (# 1) [place] Start: 06-12-2019 Screening for Chlamy flaco trachomatis Chlamydia screen [place] Start: 09-13-2011 Hepatitis A vaccine (2 of 2 - 2-dose series) Hepatitis A vaccine (2 of 2 - 2-dose series) [place] Start: 2007 COVID-19 Vaccine (1) COVID-19 Vaccin e (1) [email or web address]: Start: 1995 Hepatitis C screening Hepatitis C sc reen [employer] Phone: End: 12-21-2020 Mumps Antibody, IgG Mumps Antibody, IgG Lab Routine Once for 1 Occurrences starting 12/21/2020 until 12/21/2020 [employer] Phone: Comment on above: Once for 1 Occurrenc es starting 12/21/2020 until 12/21/2020 Mumps Antibody, IgG Mumps Antibo dy, IgG Lab Routine 12/21/2020 4:27 PM EDT [employer] Phone: End: 12-21-2020 Quantiferon TB Gold Quantiferon TB Gold Microbiology Routine Once for 1 Occurrences starting 12/21/2020 until 12/21/2020 [employer] Phone: Comment on above: Once for 1 Occurrenc es starting 12/21/2020 until 12/21/2020 Quantiferon TB Gold Quantiferon TB Gold Microbiology Routine 12/21/2020 4:27 PM [employer] Phone: End: 12-21-2020 Rubeola Antibody, IgG Rubeola Antibody, IgG Lab Routine Once for 1 Occurrences starting 12/21/2020 until 12/21/2020 [employer] Phone: Comment on above: Once for 1 Occurrenc es starting 12/21/2020 until 12/21/2020 Rubeola Antibody, IgG Rubeola An tibody, IgG Lab Routine 12/21/2020 4:27 PM [employer] Phone: End: 12-21-2020 Varicella Zoster Antibody, IgG Varicella Zoster Antibody, IgG Lab Routine Once for 1 Occurrences starting 12/21/2020 until 12/21/2020 [employer] Phone: Comment on above: Once for 1 Occurrenc es starting 12/21/2020 until 12/21/2020 Varicella Zoster Antibody, IgG Varicella Zoster Antibody, IgG Lab Routine 12/21/2020 4:27 PM [employer] Phone: Immunizations Immunization Date Immunization Notes Care Provider [facility] 06-28-2021 influenza virus vacc ine, unspecified formulation Jasiellakeisha Mayoo [employer] Work Phone: [facility] 03-09-2020 tuberculin skin test ; purified protein derivative solution, intradermal [facility], [place] 04-28-2019 influenza, injectabl e, quadrivalent, preservative free [facility] 06-12-2018 influenza, injectabl e, quadrivalent, preservative free [facility], [place] 05-01-2018 tuberculin skin test ; purified protein derivative solution, intradermal [facility] 09-12-2017 hepatitis B vaccine, adult dosage [facility] 04-13-2017 Human Papillomavirus 9-valent vaccine [facility] 04-10-2017 hepatitis B vaccine, adult dosage [facility] 03-07-2017 hepatitis B vaccine, adult dosage [facility] 03-07-2017 meningococcal polysaccharide (groups A, C, Y and W-135) diphtheria toxoid conjugate vaccine (MCV4P) [place], [place] 03-07-2017 tuberculin skin test ; purified protein derivative solution, intradermal [place] 02-26-2017 tetanus toxoid, redu juve diphtheria toxoid, and acellular pertussis vaccine, adsorbed [facility] 02-26-2017 tuberculin skin test ; purified protein derivative solution, intradermal [facility] 08-13-2014 Human Papillomavirus 9-valent vaccine [place], [place] 04-01-2014 meningococcal polysaccharide (groups A, C, Y and W-135) diphtheria toxoid conjugate vaccine (MCV4P) [facility], [place] 02-10-2014 Human Papillomavirus 9-valent vaccine [place], [place] Payers Date Payer Category Payer Private Health Insurance [employer] [id number] 2022 Unknown [employer] [id number] 2022-Present [address] [place] [address] [id number] 2022 Unknown [id number] 2021 Unknown [id number] 2016 Private Health Insurance [employer] [id number] 2016-Present [phone] [address] [place] [address] [id number] 1995 Unknown [id number] 2.16.840.1.855283.3.579.2. 175 1995 Unknown [id number] 2.16.840.1.511556.3.579.2. 593 1995 Unknown [id number] 2.16.840.1.452414.3.579.2. 1286 1995 Unknown [id number] 2.16.840.1.662322.3.579.2. 1259 1995 Unknown [id number] 2.16.840.1.506923.3.579.2. 1259 1995 Unknown [id number] 2.16.840.1.768621.3.579.2. 1259 1995 Unknown [id number] 2.16.840.1.178811.3.579.2. 1259 1995 Unknown [id number] 2.16.840.1.208488.3.579.2. 1259 1995 Unknown [id number] 2.16.840.1.331501.3.579.2. 1259 1995 Unknown [id number] 2.16.840.1.316388.3.579.2. 1259 1995 Unknown [id number] 2.16.840.1.517762.3.579.2. 1259 1995 Unknown [id number] 2.16.840.1.653152.3.579.2. 1259 1959 Unknown [id number] Social History Date Type Detail Facility Start: 03-18-2020 End: 01-17-2024 Tobacco smoking status NHIS Never smoker [facility] Start: 03-18-2020 End: 01-17-2024 Tobacco use and exposure Never used [facility] Start: 02-05-2017 Alcohol Comment rarely [email or web address] Sex Assigned At Not on file [employer] ANDREAS WALKER Start: 1995 Sex Assigned At Female [employer] Work Phone: Start: 04-17-2024 End: 06-05-2024 Alcoholic beverage intake Ex-drinker (finding) [facility] Start: 01-17-2024 End: 04-17-2024 Alcoholic beverage intake [facility] Start: 01-17-2024 Tobacco use panel [facility] Start: 11-04-2023 [facility] Start: 02-20-2023 Gender identity Identifies as female gender (finding) [facility] Start: 02-20-2023 Sexual orientation Heterosexual (finding) [facility] Medical Equipment Procedure Code Equipment Code Equipment Original Text Equipment Identifier Dates Inject 1 each un flory the skin See administration instructions Use four times daily with insulin pen. [id number] Start: 05-26-2024 End: 06-25-2024 History of Present [...] nursing note reviewed. Exam conducted with a clean up person present. Vitals: Estimated body mass index is [...] nursing note reviewed. Exam conducted with a clean up person present. Vitals: Estimated body mass index is [...] nursing note reviewed. Exam conducted with a clean up person present. 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 Additional Source Comments INFORMATION SOURCE (unrecogn ized section and content) DATE CREATED AUTHOR 03/12/2020 [facility] DATE CREATED AUTHOR AUTHOR'S ORGANIZ ATION 08/20/2021 [facility] DATE CREATED AUTHOR AUTHOR'S ORGANIZ ATION 02/18/2022 [facility] DATE CREATED AUTHOR AUTHOR'S ORGANIZ ATION 08/25/2022 [facility] DATE CREATED AUTHOR AUTHOR'S ORGANIZ ATION 04/12/2024 [facility] DATE CREATED AUTHOR AUTHOR'S ORGANIZ ATION 06/07/2024 [facility] EPIC Care Teams (unrecognized sec tion and content) Recreational Assistant Relationship Specialty [place] [address] [facility] [place] [address] PCP - General Family Medicine 03/22/23 Recreational Assistant Relationship Specialty [place] [address] [facility] [place] [address] PCP - General Family Medicine 03/22/23 Recreational Assistant Relationship Specialty [place] [address] [place] [address] PCP - General Family Medicine 03/22/23 Suri Canales PA [address] [place] [address] [place] [address] PCP - Medical [place] [employer] 07/30/22 07/29/99 Recreational Assistant Relationship Specialty [place] [address] [place] [address] PCP - General Family Medicine 03/22/23 Suri Canales PA [facility] [place] [address] PCP - Medical [place] [employer] 07/30/22 07/29/99 Recreational Assistant Relationship Specialty Start [place] [address] [place] [address] PCP - General Family Medicine 03/22/23 Suri Canales PA [address] [place] [address] [place] [address] PCP - Medical [place] [facility] 07/30/22 07/29/99 Recreational Assistant Relationship Specialty Start [place] [address] [place] [address] PCP - General Family Medicine 03/22/23 Suri Canales PA [facility] [place] [address] PCP - Medical [place] [employer] 07/30/22 07/29/99 Reason for Visit (unrecogniz [...] BE BASED ON THE PRIMARY CLINICAL RECORDS. [facility]. provides no warranty or guarantee of the accuracy or completeness of information in this document.
[2024-06-16 17:23] VITALS: BP 126/69; PULSE 81
== END 2024-06-16 17:50 | disposition home or self-care (01) ==
LOC: FBCO 17:15 → FBC 17:18
PROVIDERS: Visit Provider Obstetrics & Gynecology
DX: O24.419 Gestational diabetes mellitus in pregnancy, unspecified control (principal); Z3A.34 34 weeks gestation of pregnancy
CPT/HCPCS: 59025

== ENCOUNTER 2024-06-19 07:11 | Outpatient (OUT) | payer OTHER, SELFPAY ==
--- OUTSIDE RECORDS SUMMARY | 2024-06-19 07:14 | XMS_ITS | CCD ---
Author Organization [facility] Care Team Providers Care Structural Analyst Name Role Phone Shantelle Dean Primary Care [...] UA Negative Negative - 4(70) +++ mg/dL [facility] Blood, UA Negative Negative - 50 Bib/mcL [facility] Clarity, UA Clear [facility] Color, UA Yellow [facility] Glucose, UA Negative Negative - 1999(110) ++++ mg/dL [facility] Interpretation and review of laboratory results Abnormal [facility] Ketones, UA Negative Negative - 160(16) ++++ mg/dL [facility] Leukocytes, UA Trace Negative - 500+++ Alvaro/mcL [facility] Nitrite, UA Negative Negative - Positive [facility] pH, UA 7 5 - 9 [facility] Protein, UA Negative Negative - 1999(20) ++++ mg/dL [facility] Spec Grav, UA 1.015 1 - 1.03 [facility] Urobilinogen, UA 0.2 0.2 - 12 mg/dL [facility] Urinalysis macro (dipstick) panel (U)on 05-22-2024 Bilirubin, UA Negative Negative - 4(70) +++ mg/dL [facility] Blood, UA Negative Negative - 50 Bib/mcL [facility] Clarity, UA Clear [facility] re Color, UA Yellow [facility] Glucose, UA Negative Negative - 1999(110) ++++ mg/dL [facility] Interpretation and review of laboratory results Abnormal [facility] Ketones, UA Negative Negative - 160(16) ++++ mg/dL [facility] Leukocytes, UA Positive Negative - 500+++ Alvaro/mcL [facility] Comment on above: small Nitrite, UA Negative Negative - Positive [facility] pH, UA 7 5 - 9 [facility] Protein, UA Negative Negative - 1999(20) ++++ mg/dL [facility] Spec Grav, UA 1.015 1 - 1.03 [facility] Urobilinogen, UA 0.2 0.2 - 12 mg/dL [facility] Urinalysis macro (dipstick) panel (U)on 05-08-2024 Bilirubin, UA Negative Negative - 4(70) +++ mg/dL [facility] Blood, UA Negative Negative - 50 Bib/mcL [facility] Clarity, UA Clear [facility] re Color, UA Yellow [facility] Glucose, UA Negative Negative - 1999(110) ++++ mg/dL [facility] Interpretation and review of laboratory results Abnormal [facility] Ketones, UA Negative Negative - 160(16) ++++ mg/dL [facility] Leukocytes, UA Positive Negative - 500+++ Alvaro/mcL [facility] Comment on above: small Nitrite, UA Negative Negative - Positive [facility] pH, UA 7.0 5 - 9 [facility] e Protein, UA Negative Negative - 1999(20) ++++ mg/dL [facility] Spec Grav, UA 1.020 1 - 1.03 [facility] Urobilinogen, UA 0.2 0.2 - 12 mg/dL [facility] GLUCOSE TOLERANCE 3 HOURon 1 GLUCOSE TOLERANCE 3 HOUR High mg/dL [facility] Comment on above: GLU FAST 97H (<95) C ol: 05/01/24 0722 GLU 1HR 173 (<180) Col: 05/01/24 0823 GLU 2HR 162H (<155) Col: 05/01/24 0924 GLU 3HR 114 (<140) Col: 05/01/24 1022 Interpretation and review of laboratory results Abnormal [facility] PAP ACOG PANEL 2: 21 to 29on 08-25-2022 . . Normal [facility] Comment on above: Performed By: #### 4 [id number] #### [facility] [address] [address] [address] Matias Shukla Age Gdln ACOG Testing 21- Normal [facility] Comment on above: Performed By: #### 4 [id number] #### [facility] [address] [address] [address] Matias Shukla DIAGNOSIS: Comment [facility] Comment on above: Result Comment: NEGA TIVE FOR INTRAEPITHELIAL LESION OR MALIGNANCY. Performed By: #### 4 [id number] #### [facility] [address] [address] [address] Matias Shukla Methodology: Comment Normal [facility] Comment on above: Result Comment: This liquid based ThinPrep(R) pap test was screened with the use of an image guided system. Performed By: #### 4 [id number] #### [facility] [address] [place] [address] Dr. Matias Shukla Note: Comment Normal [facility] Comment on above: Result Comment: The Pap smear is a screening test designed to aid in the detection of premalignant and malignant conditions of the uterine cervix. It is not a diagnostic procedure and should not be used as the sole means of detecting cervical cancer. Both false-positive and false-negative reports do occur. . Performed By: #### 4 [id number] #### [facility] [address] [place] [address] Dr. Matias Shukla Performed by: Comment Normal [facility] Comment on above: Result Comment: Monika Prieto, Forge Operator (ASCP) Performed By: #### 4 [id number] #### [facility] [address] [place] [address] Dr. Matias Shukla Reflex Criteria: Comment Normal [facility] Comment on above: Result Comment: The HPV DNA reflex criteria were not met with this specimen result therefore, no HPV testing was performed. . Performed By: #### 4 [id number] #### [facility] [address] [place] [address] Dr. Matias Shukla Specimen adequacy: Comment Normal [facility] Comment on above: Result Comment: Sati sfactory for evaluation. Endocervical and/or squamous metaplastic cells (endocervical component) are present. Performed By: #### 4 [id number] #### [facility] [address] [place] [address] Dr. Matias Shukla MUMPS IGG BLDon 02-07-2022 MUMPS IGG 1.14 Normal [facility] Comment on above: Result Comment: RAN IN TRIPLICATE NORMAL RANGES: < OR = 0.9O NEGATIVE ; NO DETECTABLE IgG ANTIBODY TO MUMPS 0.91 - 1.09 EQUIVOCAL; REPEAT TESTING SUGGESTED > OR = 1.10 POSITIVE ; INDICATES PRESENCE OF DETECTABLE IgG ANTIBODY TO MUMPS Performed By: #### 1 0055, [id number], 30391, 04010 #### [facility] [address] RUBELLAon 02-07-2022 RUBELLA 1.73 Normal [facility] Comment on above: Result Comment: NORM AL RANGES: < OR = 0.9O NEGATIVE ; NO DETECTABLE IgG ANTIBODY TO RUBELLA 0.91 - 1.09 EQUIVOCAL; REPEAT TESTING SUGGESTED > OR = 1.10 POSITIVE ; INDICATES PRESENCE OF DETECTABLE IgG ANTIBODY TO RUBELLA VIRUS Performed By: #### 1 0055, 37226, 66005, 73942 #### [facility] [address] RUBEOLA MEASLES IGGon 2021 RUBEO IGG 4.62 Normal [facility] Comment on above: Result Comment: NORM AL RANGES: < OR = 0.9O NEGATIVE ; NO DETECTABLE IgG ANTIBODY TO RUBEOLA 0.91 - 1.09 EQUIVOCAL; REPEAT TESTING SUGGESTED > OR = 1.10 POSITIVE ; INDICATES PRESENCE OF DETECTABLE IgG ANTIBODY TO RUBEOLA Performed By: #### 1 0055, 57155, 05337, 25703 #### [facility] [address] TB QUANTIFERON PLUSon 2021 MITOGEN MINUS NIL 8.15 IU/mL Normal [facility] Comment on above: Performed By: #### 3 1592 #### [facility] [address] NIL 0.03 IU/mL Normal [facility] Comment on above: Performed By: #### 3 1592 #### [facility] [address] TB QUANTIFERON Negative Normal NEGATIVE [facility] Comment on above: Result Comment: Eric tiferon TB Gold Interpretation (IU/mL): NEGATIVE: M. tuberculosis infection not likely. Nil: <=8.0 TB1 Antigen minus Nil (GQ6YP-[id number]): <0.35 OR >=0.35; and <25% of Nil value. TB2 Antigen minus Nil (KX7HC-GGM): <0.35 OR >=0.35; and <25% of Nil [...] (https://www.cdc.gov/tb/publications/guidlines/default.htm Performed By: #### 3 1592 #### [facility] [address] TB1 AG 0.03 IU/mL Normal [facility] Comment on above: Performed By: #### 3 1592 #### [facility] [address] TB1 AG MINUS NIL 0.00 IU/mL Normal [facility] Comment on above: Performed By: #### 3 1592 #### [facility] [address] [place] [address], [facility] TB2 AG 0.04 IU/mL Normal [facility] Comment on above: Performed By: #### 3 1592 #### [facility] [address] TB2 AG MINUS NIL 0.01 IU/mL Normal [facility] Comment on above: Performed By: #### 3 1592 #### [facility] [address] VARICELLA ZOSTER IGGon 02-07 VARICELLA IGG [address] [facility] Comment on above: Result Comment: NORM AL RANGES: < OR = 0.9O NEGATIVE ; NO DETECTABLE IgG ANTIBODY TO VARICELLA-ZOSTER VIRUS 0.91 - 1.09 EQUIVOCAL; REPEAT TESTING SUGGESTED > OR = 1.10 POSITIVE ; INDICATES PRESENCE OF DETECTABLE IgG ANTIBODY TO VARICELLA-ZOSTER VIRUS Performed By: #### 1 0055, 02967, 87528, 94895 #### [facility] Esha W[address] HPV DNA High Riskon 08-19-19 HPV Interp [facility] Comment on above: Result Comment: This [...] purposes. Performed By: #### H PVH #### [facility] [address] [place] [address] Manager Helpdesk: Rickey Watson MD HPV Type 16 Not detected [facility] Comment on above: Performed By: #### H PVH #### [address] [address] Manager Helpdesk: Rickey Watson MD HPV Type 18 Not detected [facility] Comment on above: Performed By: #### H PVH #### [facility] [address] [place] [address] Manager Helpdesk: Rickey Watson MD Other High Risk HPV Not detected [facility] Comment on above: Performed By: #### H PVH #### [facility] [address] [place] [address] Manager Helpdesk: Rickey Watson MD HPV DNA High Riskon 08-18-19 22 Source .GENITAL - NOT SPECIFIED Normal [facility] Comment on above: Performed By: #### H PVH #### [address] [address] Manager Helpdesk: Rickey Watson MD HPV Sample .THIN PREP Normal [facility] Comment on above: Performed By: #### H PVH #### [address] [address] Manager Helpdesk: Rickey Watson MD Chlamydia/GC DNA, TPon 08-10 Chlamydia Probe, TP Negative Normal NEG [facility] Comment on above: Result [...] target. Performed By: #### C YTCGP #### [address] [address] Manager Helpdesk: Rickey Watson MD Gonorrhea Probe, TP Negative Normal NEG [facility] Comment on above: Result [...] target. Performed By: #### C YTCGP #### [address] [address] Manager Helpdesk: Rickey Watson MD Cytologyon 08-08-2021 Cytology (NOTE) INTERPRETATION Cervical material, (ThinPrep vial, Imaging-assisted review): Specimen Adequacy: Satisfactory for evaluation. - Endocervical/transfor mation zone component present. - Scant cellularity. Descriptive Diagnosis: Atypical squamous cells of undetermined significance (ASC-US). Forge Operator: AMANDA Michaels M.D. Electronically Signed Out rd08/18/2021 Amendments Originally Reported As: Procedure/Addendum Source: Clinical History LMP: Patient Name: Arvind Rec: Path Number: Fax: Normal [facility] Comment on above: Performed By: #### P PPVP #### [facility] [address] [place], [place] [id number] Manager Helpdesk: Rickey Watson MD QuantiFERON TBon 12-24-2020 Quanti Binu minus NIL 8.10 IU/mL Normal [facility] Comment on above: Performed By: #### R UBI, LUIZ, MARITZA, VZI #### [facility] [address] [place], [place] [id number] Manager Helpdesk: Rickey Watson MD #### AQF #### [facility] [address] [place] [address] Manager Helpdesk: Mark Grossman MD Quanti TB Gold Plus Negative Normal Negative [facility] Comment on above: Result [...] Mycobacterium tuberculosis Infection --- [place], 2010 (http://www.cdc.gov/mmwr/preview/mmwrhtml/ul7754l4.htm), for more information concerning test performance in low-prevalence populations and use in occupational screening. Performed By: #### R UBI, LUIZ, MARITZA, VZI #### [place] [address] Manager Helpdesk: Rickey Watson MD #### AQF #### [address] [address] Manager Helpdesk: Mark Grossman MD Quanti TB1 minus NIL 0.00 IU/mL Normal 0.00-0.34 [facility] Comment on above: Performed By: #### R UBI, LUIZ, MARITZA, VZI #### [place] [address] Manager Helpdesk: Rickey Watson MD #### AQF #### [address] [id number] Manager Helpdesk: Mark Grossman MD Quanti TB2 minus NIL 0.01 IU/mL Normal 0.00-0.34 [facility] Comment on above: Performed By: #### R UBI, LUIZ, MARITZA, VZI #### [place] [address] Manager Helpdesk: Rickey Watson MD #### AQF #### [facility] [employer] [address] [place] [id number] Manager Helpdesk: Mark Grossman MD QuantiFERON NIL 0.01 IU/mL Normal [facility] Comment on above: Result Comment: (NOT E) Performed By: [employer] [address] [place] [address] Applications Systems Analyst: Carolyn Wei MD Performed By: #### R UBI, LUIZ, MARITZA, VZI #### [place] [address] Manager Helpdesk: Rickey Watson MD #### AQF #### [facility] [address] [place], [place] [id number] Manager Helpdesk: Mark Grossman MD Measles (Rubeola) Imon 12-22 Measles (Rubeola) Im 3.68 Normal >1.09 [facility] Comment on above: Result Comment: Interpretation: IMMUNE Reference Range: <0.91 Not Immune 0.91-1.09 Equivocal >1.09 Immune Performed By: #### R UBI, LUIZ, MARITZA, VZI #### [address] [id number] Manager Helpdesk: Rickey Watson MD #### AQF #### [facility] [address] [place], [place] [id number] Manager Helpdesk: Mark Grossman MD Mumps,Immun,Abon 12-22-2020 Mumps,Immun,Ab 1.16 Normal >1.09 [facility] Comment on above: Result Comment: Interpretation: IMMUNE Reference Range: <0.91 Not Immune 0.91-1.09 Equivocal >1.09 Immune Performed By: #### R UBI, LUIZ, MARITZA, VZI #### [address] [address] Manager Helpdesk: Rickey Watson MD #### AQF #### [facility] [address] [place], [place] [id number] Manager Helpdesk: Mark Grossman MD VZ Immunityon 12-22-2020 VZ Immunity 2.24 Normal >1.09 [facility] Comment on above: Result Comment: Interpretation: IMMUNE Reference Range: <0.91 Not Immune 0.91-1.09 Equivocal >1.09 Immune Performed By: #### R UBI, LUIZ, MARITZA, VZI #### [address] [id number] Manager Helpdesk: Rickey Watson MD #### AQF #### [facility] [address] [place] [address] Manager Helpdesk: Mark Grossman MD Rubella Ab, IgGon 12-21-2020 Rubella Ab, IgG 16.2 IU/mL Normal [facility] Comment on above: Result Comment: REFERENCE RANGE: <5.0 NON-REACTIVE (non-immune) 5.0 TO 9.9 EQUIVOCAL >=10.0 REACTIVE (immune) Performed By: #### R UBI, LUIZ, MARITZA, VZI #### [facility] [employer] [address] [place], [place] [id number] Manager Helpdesk: Rickey Watson MD #### AQF #### [facility] [address] [place] [address] Manager Helpdesk: Mark Grossman MD Rubella antibody, IgGOrdered By: Jimmy Meehan on 12-21-2020 Rubella virus IgG Ql (S) 16.2 IU/mL [employer] Phone: Comment on above: REFERENCE RANGE: <5.0 NON-REACTIVE (non-immune) 5.0 TO 9.9 EQUIVOCAL >=10.0 REACTIVE (immune) [employer] Phone: Lab - Toxicology Resultson 0 03-11-2020 Lab - Toxicology Results [id number] Normal [facility] QuantiFERON TB Gold (In Tube ) LCon 03-08-2020 QuantiFERON Criteria LC Comment [facility] Comment on above: Result Comment: The QuantiFERON-TB Gold Plus result is determined by subtracting the Nil value from either TB antigen (Ag) tube. The mitogen tube serves as a control for the test. Performed By: #### 4 [id number], [id number] #### [facility] (DEFAULT) [address] [place] [address] QuantiFERON M. tuberculosis1 Ag Value LC 0.09 IU/mL [facility] Comment on above: Performed By: #### 4 [id number], [id number] #### [facility] (DEFAULT) [address] [place] [address] QuantiFERON M. tuberculosis2 Ag Value LC 0.08 IU/mL [facility] Comment on above: Performed By: #### 4 [id number], [id number] #### [facility] (DEFAULT) [address] [place] [address] QuantiFERON Mitogen Value LC >10.00 [facility] Comment on above: Result Comment: Perf ormed At: [id number] [place], [place] [id number] Kat Arevalo PhD Ph:[phone] Performed By: #### 4 [id number], [id number] #### [facility] (DEFAULT) [address] [place] [address] QuantiFERON Nil Value LC 0.01 IU/mL [facility] Comment on above: Performed By: #### 4 [id number], [id number] #### [facility] (DEFAULT) [address] [place] [address] QuantiFERON-TB Gold Plus LCo n 03-08-2020 QuantiFERON-TB Gold Plus LC Negative Negative [facility] Comment on above: Result Comment: Perf ormed At: [address] [id number] Kat Arevalo PhD Ph:[phone] Performed By: #### 4 [id number], [id number] #### [facility] (DEFAULT) [address] [place] [address] QuantiFERON Incubation LC Incubation performed. [facility] Comment on above: Result Comment: Perf ormed At: [facility] [address] [place], [place] [id number] Kat Arevalo PhD Ph:[phone] Performed By: #### 4 [id number], [id number] #### [facility] (DEFAULT) [address] [place] [address] HBSab Qnt LCon 03-05-2020 Hep B Surf Ab Quant LC 145.6 mIU/mL Immunity>9.9 [facility] Comment on above: Result Comment: Stat us of Immunity Anti-HBs Level Inconsistent with Immunity 0.0 - 9.9 Consistent with Immunity >9.9 Performed At: [facility] [address] [place] [id number] Kat Arevalo PhD Ph:[phone] Performed By: #### 1 [id number], [id number] #### [facility] (DEFAULT) [address] [place] [address] Measles/Mumps/Rubella Immuni ty LCon 03-05-2020 Mumps Abs, IgG LC 69.5 AU/mL Immune >10.9 [facility] Comment on above: Result Comment: Nega tive <9.0 Equivocal 9.0 - 10.9 Positive >10.9 A positive result generally indicates past exposure to Mumps virus or previous vaccination. Performed At: [id number] [place], [place] [id number] Kat Arevalo PhD Ph:[phone] Performed By: #### 1 [id number], [id number] #### [facility] (DEFAULT) [address] [place] [address] Rubella Antibodies, IgG LC 1.75 index Immune >0.99 [facility] Comment on above: Result Comment: Non- immune <0.90 Equivocal 0.90 - 0.99 Immune >0.99 Performed By: #### 1 [id number], [id number] #### [facility] (DEFAULT) [address] [place] [address] Rubeola Ab, IgG, EIA LC >300.0 Immune >16.4 [facility] Comment on above: Result Comment: Nega tive <13.5 Equivocal 13.5 - 16.4 Positive >16.4 Presence of antibodies to Rubeola is presumptive evidence of immunity except when acute infection is suspected. Performed By: #### 1 [id number], [id number] #### [facility] (DEFAULT) [address] [place] [address] Nicotine Metabolite, Urine L Con 03-05-2020 Cotinine LC Negative [id number] [facility] Comment on above: Result Comment: Perf ormed At: [facility] [place] [address] [facility] [place], [place] [id number] Jose Schwartz PhD Ph:[phone] Performed By: #### 1 [id number] #### [facility] (DEFAULT) [address] [place] [address] Vital Signs Date Time Vital Sign Value Performing Clinician Susy ramon 06-05-2024 11:46-0500 Body mass index (BMI) [Ratio] 39.69 kg/m2 Suri LORENZO Work Phone: [facility] 06-05-2024 11:46-0500 Body weight 98.43 kg Suri LORENZO Work Phone: [facility] 06-05-2024 11:46-0500 Diastolic blood pressure 80 mm[Hg] Suri LORENZO Work Phone: [facility] 06-05-2024 11:46-0500 Systolic blood pressure 114 mm[Hg] Suri LORENZO Work Phone: [facility] 05-22-2024 09:57-0400 Body mass index (BMI) [Ratio] 39.1 kg/m2 Jasiel Deshaun DO Work Phone: [facility] 05-22-2024 09:57-0400 Body weight 96.98 kg Jasiel Deshaun DO Work Phone: [facility] 05-22-2024 09:57-0400 Diastolic blood pressure 72 mm[Hg] Jasiel Deshaun DO Work Phone: [facility] 05-22-2024 09:57-0400 Systolic blood pressure 110 mm[Hg] Jasiel Deshaun DO Work Phone: [facility] 05-08-2024 09:31-0400 Body mass index (BMI) [Ratio] 38.59 kg/m2 Suri LORENZO Work Phone: [facility] 05-08-2024 09:31-0400 Body weight 95.71 kg Suri LORENZO Work Phone: [facility] 05-08-2024 09:31-0400 Diastolic blood pressure 78 mm[Hg] Suri LORENZO Work Phone: [facility] 05-08-2024 09:31-0400 Systolic blood pressure 120 mm[Hg] Suri LORENZO Work Phone: [facility] Encounters Encounter Date Encounter Type Care Provider Facility Start: 06-05-2024 End: 06-05-2024 Bamboo flowsheet Suri LORENZO Work Phone: [facility] Start: 06-05-2024 End: 06-05-2024 Bamboo flowsheet Suri LORENZO Work Phone: [facility] Start: 06-05-2024 End: 06-05-2024 flow sheet Suri LORENZO Work Phone: [facility] Comment on above: 32 weeks gestation o f ; Third trimester Start: 06-05-2024 End: 06-05-2024 ambulatory SURI CANALES Not Available Start: 05-22-2024 End: 05-22-2024 Bamboo flowsheet Jasiel Deshaun DO Work Phone: [facility] Start: 05-22-2024 End: 05-22-2024 Bamboo flowsheet Jaseil Deshaun DO Work Phone: [facility] Start: 05-22-2024 End: 05-22-2024 flow sheet Jasiel Deshaun DO Work Phone: [facility] Comment on above: 30 weeks gestation o f ; Third trimester ; Gestational diabetes mellitus (GDM), antepartum, gestational diabetes method of control unspecified Start: 05-22-2024 End: 05-22-2024 ambulatory JASIEL DESHAUN Not Available Start: 05-08-2024 End: 05-08-2024 Bamboo flowsheet Suri LORENZO Work Phone: [facility] Start: 05-08-2024 End: 05-08-2024 Bamboo flowsheet Suri LORENZO Work Phone: [facility] Start: 05-08-2024 End: 05-08-2024 flow [...] Start: 04-10-2024 End: 04-10-2024 ambulatory JASIEL R [facility] Start: 03-13-2024 End: 03-13-2024 ambulatory SURI CANALES Not Available Start: 02-13-2024 End: 02-13-2024 ambulatory JASIEL DESHAUN Not Available Start: 01-17-2024 End: 01-17-2024 ambulatory JASIEL DESHAUN Not Available Start: 08-22-2023 End: 08-22-2023 ambulatory JASIEL DESHAUN Not Available Start: 07-04-2023 End: 07-04-2023 ambulatory JASIEL DESHAUN Not Available Start: 08-21-2022 End: 08-21-[address] BELLAMY [facility] Facility: Start: 08-08-2021 End: 08-09-2021 ambulatory SHANTELLE DEAN [facility] Start: 12-21-2020 End: 12-22-2020 ambulatory JIMMY MEEHAN [facility] Start: 12-21-2020 End: 12-21-2020 Subsequent [...] - Td) DTaP/Tdap/Td vaccine (7 - Td) [place], [place] Start: 08-25-2024 End: 08-25-2024 Patient encounter procedure 08/25/2024 9:00 AM EST Office Visit [facility] [address] [place] [id number] Jasiel Meade, DO [address] [place] [address] [facility] Start: 07-03-2024 End: 07-03-2024 Patient encounter procedure 07/03/2024 10:40 AM EST Routine [facility] [address] [place] [id number] Jasiel Meade DO [address] [place] [address] [facility] Start: 06-19-2024 End: 06-19-2024 Patient encounter procedure 06/19/2024 10:20 AM EST Routine [facility] [address] [place] [id number] Suri Canales PA [address] [facility] [place] [address] [facility] Start: 06-05-2024 End: 06-05-2024 [...] EDT Ancillary Procedure [facility] [address] [facility] [address] [place] [id number] [facility] Start: 05-08-2024 End: 05-08-2025 [...] ant neoplasm [facility] cervix [facility] Start: 06-12-2021 Screening for malign ant neoplasm of cervix Cervical cancer screen [place], [place] Start: 03-30-2021 Influenza vaccination Flu vacc ine (Season Ended) [facility] Start: 03-30-2020 Influenza vaccination Flu vaccine (# 1) [place], [place] Start: 06-12-2019 Screening for Chlamy flaco trachomatis Chlamydia screen [place], [place] Start: 09-13-2011 Hepatitis A vaccine (2 of 2 - 2-dose series) Hepatitis A vaccine (2 of 2 - 2-dose series) [place], [place] Start: 2007 COVID-19 Vaccine (1) COVID-19 Vaccin e (1) [facility] Start: 1995 Hepatitis C screening Hepatitis C sc reen [employer] Phone: End: 12-21-2020 Mumps Antibody, IgG Mumps Antibody, IgG Lab Routine Once for 1 Occurrences starting 12/21/2020 until 12/21/2020 [employer] Phone: Comment on above: Once for 1 Occurrenc es starting 12/21/2020 until 12/21/2020 Mumps Antibody, IgG Mumps Antibo dy, IgG Lab Routine 12/21/2020 4:27 PM EDT [employer] Phone: End: 12-21-2020 Quantiferon TB Gold Quantiferon TB Gold Microbiology Routine Once for 1 Occurrences starting 12/21/2020 until 12/21/2020 [employer] Phone: Comment on above: Once for 1 Occurrenc es starting 12/21/2020 until 12/21/2020 Quantiferon TB Gold Quantiferon TB Gold Microbiology Routine 12/21/2020 4:27 PM [employer] Phone: End: 12-21-2020 Rubeola Antibody, IgG Rubeola Antibody, IgG Lab Routine Once for 1 Occurrences starting 12/21/2020 until 12/21/2020 [employer] Phone: Comment on above: Once for 1 Occurrenc es starting 12/21/2020 until 12/21/2020 Rubeola Antibody, IgG Rubeola An tibody, IgG Lab Routine 12/21/2020 4:27 PM [employer] Phone: End: 12-21-2020 Varicella Zoster Antibody, IgG Varicella Zoster Antibody, IgG Lab Routine Once for 1 Occurrences starting 12/21/2020 until 12/21/2020 [employer] Phone: Comment on above: Once for 1 Occurrenc es starting 12/21/2020 until 12/21/2020 Varicella Zoster Antibody, IgG Varicella Zoster Antibody, IgG Lab Routine 12/21/2020 4:27 PM [employer] Phone: Immunizations Immunization Date Immunization Notes Care Provider [facility] 06-28-2021 influenza virus vacc ine, unspecified formulation Jasiellakeisha Mayoo [employer] Work Phone: [facility] 03-09-2020 tuberculin skin test ; purified protein derivative solution, intradermal [facility], [place] 04-28-2019 influenza, injectabl e, quadrivalent, preservative free [facility], [place] 06-12-2018 influenza, injectabl e, quadrivalent, preservative free [facility], [place] 05-01-2018 tuberculin skin test ; purified protein derivative solution, intradermal [facility] 09-12-2017 hepatitis B vaccine, adult dosage [facility] 04-13-2017 Human Papillomavirus 9-valent vaccine [facility] 04-10-2017 hepatitis B vaccine, adult dosage [facility] 03-07-2017 hepatitis B vaccine, adult dosage [facility], [place] 03-07-2017 meningococcal polysaccharide (groups A, C, Y and W-135) diphtheria toxoid conjugate vaccine (MCV4P) [place], [place] 03-07-2017 tuberculin skin test ; purified protein derivative solution, intradermal [place], [place] 02-26-2017 tetanus toxoid, redu juve diphtheria toxoid, and acellular pertussis vaccine, adsorbed [facility], [place] 02-26-2017 tuberculin skin test ; purified protein derivative solution, intradermal [facility], [place] 08-13-2014 Human Papillomavirus 9-valent vaccine [place], [place] 04-01-2014 meningococcal polysaccharide (groups A, C, Y and W-135) diphtheria toxoid conjugate vaccine (MCV4P) [facility], [place] 02-10-2014 Human Papillomavirus 9-valent vaccine [place], [place] Payers Date Payer Category Payer Private Health Insurance [employer] [id number] 2022 Unknown [employer] [id number] 2022-Present [address] [place] [address] [id number] 2022 Unknown [id number] 2021 Unknown [id number] 2016 Private Health Insurance [employer] [id number] 2016-Present [phone] [address] [place] [address] [id number] 1995 Unknown [id number] [id number]. 175 1995 Unknown [id number] 2.16.840.1.823357.3.579.2. 593 1995 Unknown [id number] 2.16.840.1.030799.3.579.2. 1286 1995 Unknown [id number] 2.16.840.1.588742.3.579.2. 1259 1995 Unknown [id number] 2.16.840.1.897376.3.579.2. 1259 1995 Unknown [id number] 2.16.840.1.824583.3.579.2. 1259 1995 Unknown [id number] 2.16.840.1.857456.3.579.2. 1259 1995 Unknown [id number] 2.16.840.1.018491.3.579.2. 1259 1995 Unknown [id number] 2.16.840.1.041887.3.579.2. 1259 1995 Unknown [id number] 2.16.840.1.059623.3.579.2. 1259 1995 Unknown [id number] 2.16.840.1.464884.3.579.2. 1259 1995 Unknown [id number] 2.16.840.1.864090.3.579.2. 1259 1959 Unknown [id number] Social History Date Type Detail Facility Start: 03-18-2020 End: 01-17-2024 Tobacco smoking status NHIS Never smoker [facility] Start: 03-18-2020 End: 01-17-2024 Tobacco use and exposure Never used [employer] Start: 02-05-2017 Alcohol Comment rarely [employer] Sex Assigned At Not on file [employer] ANDREAS WALKER Start: 1995 Sex Assigned At Female [employer] Work Phone: Start: 04-17-2024 End: 06-05-2024 Alcoholic beverage intake Ex-drinker (finding) [facility] Start: 01-17-2024 End: 04-17-2024 Alcoholic beverage intake [facility] Start: 01-17-2024 Tobacco use panel [facility] Start: 11-04-2023 [facility] Start: 02-20-2023 Gender identity Identifies as female gender (finding) [facility] Start: 02-20-2023 Sexual orientation Heterosexual (finding) [facility] Medical Equipment Procedure Code Equipment Code Equipment Original Text Equipment Identifier Dates Inject 1 each un flory the skin See administration instructions Use four times daily with insulin pen. [id number] Start: 05-26-2024 End: 06-25-2024 History of Present [...] nursing note reviewed. Exam conducted with a automation control integrator present. Vitals: Estimated body mass index is [...] nursing note reviewed. Exam conducted with a automation control integrator present. Vitals: Estimated body mass index is [...] in FSBS results for review. Documented by Shmia العراقي LPN on behalf of: Jasiel Meade [...] nursing note reviewed. Exam conducted with a automation control integrator present. 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 Expl anation ACP-Advance Directive ACP-Power of Jailer/Training Officer Additional Source Comments INFORMATION SOURCE (unrecogn ized section and content) DATE CREATED AUTHOR 03/12/2020 [facility] DATE CREATED AUTHOR AUTHOR'S ORGANIZ ATION 08/20/2021 [facility] DATE CREATED AUTHOR AUTHOR'S ORGANIZ ATION 02/18/2022 [facility] DATE CREATED AUTHOR AUTHOR'S ORGANIZ ATION 08/25/2022 [facility] DATE CREATED AUTHOR AUTHOR'S ORGANIZ ATION 04/12/2024 [facility] DATE CREATED AUTHOR AUTHOR'S ORGANIZ ATION 06/07/2024 [facility] EPIC Care Teams (unrecognized sec tion and content) Structural Analyst Relationship Specialty [place] [address] [facility] [facility] [place] [address] PCP - General Family Medicine 03/22/23 Structural Analyst Relationship Specialty [place] [address] [facility] [place] [address] PCP - General Family Medicine 03/22/23 Structural Analyst Relationship Specialty [place] [address] [place] [address] PCP - General Family Medicine 03/22/23 Suri Canales PA [address] [place] [address] [place] [address] PCP - Medical [employer] 07/30/22 07/29/99 Structural Analyst Relationship Specialty [place] [address] [place] [address] PCP - General Family Medicine 03/22/23 Suri Canales PA [facility] [place] [address] PCP - Medical [employer] 07/30/22 07/29/99 Structural Analyst Relationship Specialty Start [place] [address] [place] [address] PCP - General Family Medicine 03/22/23 Suri Canales PA [address] [place] [address] [place] [address] PCP - Medical [employer] 07/30/22 07/29/99 Structural Analyst Relationship Specialty Start [place] [address] [place] [address] PCP - General Family Medicine 03/22/23 Suri Canales PA [facility] [place] [address] PCP - Medical [employer] 07/30/22 07/29/99 Reason for Visit (unrecogniz [...] BE BASED ON THE PRIMARY CLINICAL RECORDS. [employer] [facility]. provides no warranty or guarantee of the accuracy or completeness of information in this document.
--- NOTE | 2024-06-19 09:07 | US_ITS ---
[address] [address] Patient Name: ZAKIA SEARS MRN: [facility]:[id number] date: 1995 Sex: F Assigned Patient Location: [facility] Current Patient Location: Accession/Order Number: [id number] Exam Date: 06/19/2024 09:09 Report Date: 06/20/2024 04:43 At the request of: JASIEL RAMOS Procedure: US OB BPP w non-stress EXAMINATION: US OB BPP w non-stress HISTORY:Gestational diabetes mellitus COMPARISON: Ultrasound OB biophysical 06/12/2024 TECHNIQUE: Ultrasound biophysical profile was performed in the radiology department. BREATHING MOVEMENTS: 2 GROSS BODY MOVEMENTS: 2 TONE: 2 QUALITATIVE AMNIOTIC FLUID VOLUME: 2 PRESENTATION: CEPHALIC HEART RATE: 176.50 bpm AMNIOTIC FLUID VOLUME: 17.51 cm GESTATIONAL AGE: 34 weeks 4 days US/US OB BPP w non-stress IMPRESSION: Total biophysical profile score: 8 Electronically authenticated by: MARIAM GARCIA Date: 06/20/2024 04:43
[2024-06-19 09:24] VITALS: BP 121/74; PULSE 100
== END 2024-06-19 09:50 | disposition home or self-care (01) ==
LOC: US 07:12 → FBC 08:56
PROVIDERS: Visit Provider Obstetrics & Gynecology
DX: O24.419 Gestational diabetes mellitus in pregnancy, unspecified control (principal); Z3A.34 34 weeks gestation of pregnancy
CPT/HCPCS: 76818

== ENCOUNTER 2024-06-23 07:13 | Outpatient (OUT) | payer OTHER, SELFPAY ==
--- OUTSIDE RECORDS SUMMARY | 2024-06-23 07:16 | XMS_ITS | CCD ---
Author Organization [facility] Care Team Providers Care Elderly Sitter Name Role Phone Shantelle Dean Primary Care Provider JIMMY MEEHAN Referring Unavailable SHANTELLE DEAN Primary Care Unavailable SHANTELLE DEAN Referring Unavailable SHANTELLE DEAN Primary Care Unavailable MISHaroon, DR BELLAMY Primary Care Unavailable DESHAUN, DR WEATHERS Attending Unavailable DESHAUN, DR WEATHERS Consulting Unavailable DESHAUN, DR WEATHERS Admitting Unavailable JASIEL MEADE R Referring Unavailable Shantelle Dean MD Primary Care Provider Suri Johnson Unavailable SURI CANALES Attending Unavailable PARKER, SURI Attending Unavailable DESHAUN, JASIEL Attending Unavailable SURI CANALES Attending Unavailable DESHAUN, JASIEL Attending Unavailable SURI CANALES Attending Unavailable DESHAUN, JASIEL Attending Unavailable DESHAUN, JASIEL Attending Unavailable DESHAUN, JASIEL Attending Unavailable Medications Current Medications Medication Drug Class(es) Dates Sig (Normalized) Sig (Original) etonogestrel 68 mg drug implant (2 sources) Progestin etonogestrel (NEXPLANON) 68 MG implant 68 mg by Subdermal route once 0 Active insulin glargine 100 unt/ml injectable solution (6 sources) Insulin Analog Start: 05-26-2024 End: 06-25-2024 inject 10 [IU] by subcutaneous injection in the evening insulin glargine (Lantus) 100 UNIT/ML injection Indications: Hyperglycemia , GESTATIONAL DIABETES Inject 10 Units under the skin in the evening 3 mL 05/26/2024 06/25/2024 Active magnesium oxide 400 mg oral tablet (13 sources) take 1 tablet by mouth in [...] 05-08-2024 Episodic Other and delivery including normal (8 sources) Third trimester ; Translations: [Encounter for [...] [32 weeks gestation of ] 06-05-2024 Episodic Residual codes; unclassified (2 sources) Gestation period, 34 weeks; Translations: [34 weeks gestation of ] 06-19-2024 Episodic Past or Other Problems Problem Classification Problem Date Documented Date Episodic/Chronic Abdominal pain (13 sources) Vaginal pain; Translations: [Pelvic and perineal [...] UA Negative Negative - 4(70) +++ mg/dL [facility] Blood, UA Negative Negative - 50 Bib/mcL [facility] Clarity, UA Clear [facility] Color, UA Yellow [facility] Glucose, UA Negative Negative - 1999(110) ++++ mg/dL [facility] Interpretation and review of laboratory results Abnormal [facility] Ketones, UA Negative Negative - 160(16) ++++ mg/dL [facility] Leukocytes, UA Trace Negative - 500+++ Avlaro/mcL [facility] Nitrite, UA Negative Negative - Positive [facility] pH, UA 7 5 - 9 [facility] Protein, UA Negative Negative - 1999(20) ++++ mg/dL [facility] Spec Grav, UA 1.015 1 - 1.03 [facility] care Urobilinogen, UA 0.2 0.2 - 12 mg/dL [facility] Urinalysis macro (dipstick) panel (U)on 05-22-2024 Bilirubin, UA Negative Negative - 4(70) +++ mg/dL [facility] Blood, UA Negative Negative - 50 Bib/mcL [facility] Clarity, UA Clear [facility] Color, UA Yellow [facility] Glucose, UA Negative Negative - 1999(110) ++++ mg/dL [facility] Interpretation and review of laboratory results Abnormal [facility] Ketones, UA Negative Negative - 160(16) ++++ mg/dL [facility] Leukocytes, UA Positive Negative - 500+++ Alvaro/mcL [facility] Comment on above: small Nitrite, UA Negative Negative - Positive [facility] pH, UA 7 5 - 9 [facility] Protein, UA Negative Negative - 1999(20) ++++ mg/dL [facility] Spec Grav, UA 1.015 1 - 1.03 [facility] Urobilinogen, UA 0.2 0.2 - 12 mg/dL [facility]inal[facility] macro (dipstick) panel (U)on 05-08-2024 Bilirubin, UA Negative Negative - 4(70) +++ mg/dL [facility] Blood, UA Negative Negative - 50 Bib/mcL [facility] Clarity, UA Clear [facility] re Color, UA Yellow [facility] e Glucose, UA Negative Negative - 1999(110) ++++ mg/dL [facility] Interpretation and review of laboratory results Abnormal [facility] Ketones, UA Negative Negative - 160(16) ++++ mg/dL [facility] Leukocytes, UA Positive Negative - 500+++ Alvaro/mcL [facility] Comment on above: small Nitrite, UA Negative Negative - Positive [facility] pH, UA 7.0 5 - 9 [facility] Protein, UA Negative Negative - 1999(20) ++++ mg/dL [facility] Spec Grav, UA 1.020 1 - 1.03 [facility] Urobilinogen, UA 0.2 0.2 - 12 mg/dL [facility] GLUCOSE TOLERANCE 3 HOURon 1 GLUCOSE TOLERANCE 3 HOUR High mg/dL [facility] Comment on above: GLU FAST 97H (<95) C ol: 05/01/24 0722 GLU 1HR 173 (<180) Col: 05/01/24 0823 GLU 2HR 162H (<155) Col: 05/01/24 0924 GLU 3HR 114 (<140) Col: 05/01/24 1022 Interpretation and review of laboratory results Abnormal [facility] PAP ACOG PANEL 2: 21 to 29on 08-25-2022 . . Normal [facility] Comment on above: Performed By: #### 4 [id number] #### [facility] [address] [address] [address] Matias Shukla Age Gdln ACOG Testing - Normal [facility] Comment on above: Performed By: #### 4 [id number] #### [facility] [address] [place], [place] [address] Dr. Matias Shukla DIAGNOSIS: Comment Normal [facility] Comment on above: Result Comment: NEGA TIVE FOR INTRAEPITHELIAL LESION OR MALIGNANCY. Performed By: #### 4 [id number] #### [facility] [address] [place] [address] Dr. Matias Shukla Methodology: Comment [facility] Comment on above: Result Comment: This liquid based ThinPrep(R) pap test was screened with the use of an image guided system. Performed By: #### 4 [id number] #### [facility] [address] [place] [address] Dr. Matias Shukla Note: Comment Normal [facility] Comment on above: Result Comment: The Pap smear is a screening test designed to aid in the detection of premalignant and malignant conditions of the uterine cervix. It is not a diagnostic procedure and should not be used as the sole means of detecting cervical cancer. Both false-positive and false-negative reports do occur. . Performed By: #### 4 [id number] #### [facility] [address] [place] [address] Dr. Matias Shukla Performed by: Comment Normal [facility] Comment on above: Result Comment: Monika Prieto, Energy Engineer (ASCP) Performed By: #### 4 [id number] #### [facility] [address] [place] [address] Dr. Matias Shukla Reflex Criteria: Comment [facility] Comment on above: Result Comment: The HPV DNA reflex criteria were not met with this specimen result therefore, no HPV testing was performed. . Performed By: #### 4 [id number] #### [facility] [address] [place] [address] Dr. Matias Shukla Specimen adequacy: Comment Normal [facility] Comment on above: Result Comment: Sati sfactory for evaluation. Endocervical and/or squamous metaplastic cells (endocervical component) are present. Performed By: #### 4 [id number] #### [facility] [address] [place] [address] Dr. Matias Shukla MUMPS IGG BLDon 02-07-2022 MUMPS IGG 1.14 Normal [facility] Comment on above: Result Comment: RAN IN TRIPLICATE NORMAL RANGES: < OR = 0.9O NEGATIVE ; NO DETECTABLE IgG ANTIBODY TO MUMPS 0.91 - 1.09 EQUIVOCAL; REPEAT TESTING SUGGESTED > OR = 1.10 POSITIVE ; INDICATES PRESENCE OF DETECTABLE IgG ANTIBODY TO MUMPS Performed By: #### 1 0055, 91535, 08938, 01337 #### [facility] [address] RUBELLAon 02-07-2022 RUBELLA 1.73 Normal [facility] Comment on above: Result Comment: NORM AL RANGES: < OR = 0.9O NEGATIVE ; NO DETECTABLE IgG ANTIBODY TO RUBELLA 0.91 - 1.09 EQUIVOCAL; REPEAT TESTING SUGGESTED > OR = 1.10 POSITIVE ; INDICATES PRESENCE OF DETECTABLE IgG ANTIBODY TO RUBELLA VIRUS Performed By: #### 1 0055, [id number], 05433, 77949 #### [facility] [address] RUBEOLA MEASLES IGGon 2021 RUBEO IGG 4.62 Normal [facility] Comment on above: Result Comment: NORM AL RANGES: < OR = 0.9O NEGATIVE ; NO DETECTABLE IgG ANTIBODY TO RUBEOLA 0.91 - 1.09 EQUIVOCAL; REPEAT TESTING SUGGESTED > OR = 1.10 POSITIVE ; INDICATES PRESENCE OF DETECTABLE IgG ANTIBODY TO RUBEOLA Performed By: #### 1 0055, 97087, 17577, 66722 #### [facility] [address] TB QUANTIFERON PLUSon 2021 MITOGEN MINUS NIL 8.15 IU/mL Normal [facility] Comment on above: Performed By: #### 3 1592 #### [facility] [address] NIL 0.03 IU/mL Normal [facility] Comment on above: Performed By: #### 3 1592 #### [facility] [address] TB QUANTIFERON Negative Normal NEGATIVE [facility] Comment on above: Result Comment: Eric tiferon TB Gold Interpretation (IU/mL): NEGATIVE: M. tuberculosis infection not likely. Nil: <=8.0 TB1 Antigen minus Nil ([id number]-HUD): <0.35 OR >=0.35; and <25% of Nil value. TB2 Antigen minus Nil ([id number]-YTC): <0.35 OR >=0.35; and <25% of Nil [...] 1592 #### [facility] [address] [place] [address], [facility] TB1 AG 0.03 IU/mL Normal [facility] Comment on above: Performed By: #### 3 1592 #### [facility] [address] [place] [address], [facility] TB1 AG MINUS NIL 0.00 IU/mL Normal [facility] Comment on above: Performed By: #### 3 1592 #### [facility] [address] [place] [address], [facility] TB2 AG 0.04 IU/mL Normal [facility] Comment on above: Performed By: #### 3 1592 #### [facility] [address] [place] [address], [facility] TB2 AG MINUS NIL 0.01 IU/mL Normal [facility] Comment on above: Performed By: #### 3 1592 #### [facility] [address] [place] [address], [facility] VARICELLA ZOSTER IGGon 02-07 VARICELLA IGG 2.60 Normal [facility] Comment on above: Result Comment: NORM AL RANGES: < OR = 0.9O NEGATIVE ; NO DETECTABLE IgG ANTIBODY TO VARICELLA-ZOSTER VIRUS 0.91 - 1.09 EQUIVOCAL; REPEAT TESTING SUGGESTED > OR = 1.10 POSITIVE ; INDICATES PRESENCE OF DETECTABLE IgG ANTIBODY TO VARICELLA-ZOSTER VIRUS Performed By: #### 1 0055, 90934, 02817, 04185 #### [facility] Esha WIGGINS. [address] HPV DNA High Riskon 08-19-19 22 HPV Interp [facility] Comment on above: Result [...] purposes. Performed By: #### H PVH #### [address] [address] High School Music Teacher: Rickye Watson MD HPV Type 16 Not detected [facility] Comment on above: Performed By: #### H PVH #### [address] [address] High School Music Teacher: Rickey Watson MD HPV Type 18 Not detected [facility] Comment on above: Performed By: #### H PVH #### [facility] [address] [place] [address] High School Music Teacher: Rickey Watson MD Other High Risk HPV Not detected [facility] Comment on above: Performed By: #### H PVH #### [facility] [address] [place] [address] High School Music Teacher: Rickey Watson MD HPV DNA High Riskon 08-18-19 Source .GENITAL - NOT SPECIFIED Normal [facility] Comment on above: Performed By: #### H PVH #### [address] [address] High School Music Teacher: Rickey Watson MD HPV Sample .THIN PREP Normal [facility] Comment on above: Performed By: #### H PVH #### [address] [address] High School Music Teacher: Rickey Watson MD Chlamydia/GC DNA, TPon 08-10 Chlamydia Probe, TP Negative Normal NEG [facility] Comment on above: Result Comment: CHLA [...] target. Performed By: #### C YTCGP #### [address] [address] High School Music Teacher: Rickey Watson MD Gonorrhea Probe, TP Negative Normal NEG [facility] Comment on above: Result Comment: NEIS [...] target. Performed By: #### C YTCGP #### [address] [address] High School Music Teacher: Rickey Watson MD Cytologyon 08-08-2021 Cytology (NOTE) INTERPRETATION Cervical material, (ThinPrep vial, Imaging-assisted review): Specimen Adequacy: Satisfactory for evaluation. - Endocervical/transfor mation zone component present. - Scant cellularity. Descriptive Diagnosis: Atypical squamous cells of undetermined significance (ASC-US). Energy Engineer: AMANDA Michaels M.D. Electronically Signed Out rdd/08/18/2021 Amendments Originally Reported As: Procedure/Addendum Source: Clinical History LMP: Patient Name: Med Rec: Path Number: Fax: Normal [facility] Comment on above: Performed By: #### P PPVP #### [address] [id number] High School Music Teacher: Rickey Watson MD QuantiFERON TBon 12-24-2020 Quanti Binu minus NIL 8.10 IU/mL [facility] Comment on above: Performed By: #### R UBI, LUIZ, MARITZA, VZI #### [facility] [address] [place] [address] [id number] High School Music Teacher: Rickey Watson MD #### AQF #### [facility] [address] [place] [address] High School Music Teacher: Mark Grossman MD Quanti TB Gold Plus Negative Normal Negative [facility] Comment on above: Result Comment: (NOT [...] Mycobacterium tuberculosis Infection --- [place], 2010 (http://www.cdc.gov/mmwr/preview/mmwrhtml/fh1658z0.htm), for more information concerning test performance in low-prevalence populations and use in occupational screening. Performed By: #### R LUIZ MCKEON, MARITZA, VZI #### [facility] [address] [place], [place] [id number] High School Music Teacher: Rickey Watson MD #### AQF #### [facility] [address] [place] [address] High School Music Teacher: Mark Grossman MD Quanti TB1 minus NIL 0.00 IU/mL Normal 0.00-0.34 [facility] Comment on above: Performed By: #### R LUIZ MCKEON, MARITZA, VZI #### [facility] [address] [place], [place] [address] High School Music Teacher: Rickey Watson MD #### AQF #### [facility] [address] [place] [address] High School Music Teacher: Mark Grossman MD Quanti TB2 minus NIL 0.01 IU/mL Normal 0.00-0.34 [facility] Comment on above: Performed By: #### R LUIZ MCKEON, MARITZA, VZI #### [facility] [address] [place] [address] High School Music Teacher: Rickey Watson MD #### AQF #### [facility] [address] [place] [address] High School Music Teacher: Mark Grossman MD QuantiFERON NIL 0.01 IU/mL Normal [facility] Comment on above: Result Comment: (NOT E) Performed By: [facility] [address] [place] [address] Superintendent Factory: Carolyn Wei MD Performed By: #### R UBI, LUIZ, MARITZA, VZI #### [address] [id number] High School Music Teacher: Rickey Watson MD #### AQF #### [address] [id number] High School Music Teacher: Mark Grossman MD Measles (Rubeola) Imon 12-22 Measles (Rubeola) Im 3.68 Normal >1.09 [facility] Comment on above: Result Comment: Interpretation: IMMUNE Reference Range: <0.91 Not Immune 0.91-1.09 Equivocal >1.09 Immune Performed By: #### R UBI, LUIZ, MARITZA, VZI #### [address] [id number] High School Music Teacher: Rickey Watson MD #### AQF #### [address] [id number] High School Music Teacher: Mark Grossman MD Mumps,Immun,Abon 12-22-2020 Mumps,Immun,Ab 1.16 Normal >1.09 [facility] Comment on above: Result Comment: Interpretation: IMMUNE Reference Range: <0.91 Not Immune 0.91-1.09 Equivocal >1.09 Immune Performed By: #### R UBI, LUIZ, MARITZA, VZI #### [place] [address] High School Music Teacher: Rickey Watson MD #### AQF #### [address] [id number] High School Music Teacher: Mark Grossman MD VZ Immunityon 12-22-2020 VZ Immunity 2.24 Normal >1.09 [facility] Comment on above: Result Comment: Interpretation: IMMUNE Reference Range: <0.91 Not Immune 0.91-1.09 Equivocal >1.09 Immune Performed By: #### R UBI, LUIZ, MARITZA, VZI #### [address] [place], [place] [address] High School Music Teacher: Rickey Watson MD #### AQF #### [facility] [address] [place] [address] High School Music Teacher: Mark Grossman MD Rubella Ab, IgGon 12-21-2020 Rubella Ab, IgG 16.2 IU/mL Normal [facility] Comment on above: Result Comment: REFERENCE RANGE: <5.0 NON-REACTIVE (non-immune) 5.0 TO 9.9 EQUIVOCAL >=10.0 REACTIVE (immune) Performed By: #### R UBI, LUIZ, MARITZA, VZI #### [facility] [address] [place] [address] [id number] High School Music Teacher: Rickey Watson MD #### AQF #### [facility] [address] [place] [address] High School Music Teacher: Mark Grossman MD Rubella antibody, IgGOrdered By: Jimmy Meehan on 12-21-2020 Rubella virus IgG Ql (S) 16.2 IU/mL [facility] Phone: Comment on above: REFERENCE RANGE: <5.0 NON-REACTIVE (non-immune) 5.0 TO 9.9 EQUIVOCAL >=10.0 REACTIVE (immune) [employer] Phone: Lab - Toxicology Resultson 0 03-11-2020 Lab - Toxicology Results [id number] Normal [facility] QuantiFERON TB Gold (In Tube ) LCon 03-08-2020 QuantiFERON Criteria LC Comment [facility] Comment on above: Result Comment: The QuantiFERON-TB Gold Plus result is determined by subtracting the Nil value from either TB antigen (Ag) tube. The mitogen tube serves as a control for the test. Performed By: #### 4 [id number], [id number] #### [facility] (DEFAULT) [address] [place] [address] QuantiFERON M. tuberculosis1 Ag Value LC 0.09 IU/mL [facility] Comment on above: Performed By: #### 4 [id number], [id number] #### [facility] (DEFAULT) [address] [place] [address] QuantiFERON M. tuberculosis2 Ag Value LC 0.08 IU/mL [facility] Comment on above: Performed By: #### 4 [id number], [id number] #### [facility] (DEFAULT) [address] [place] [address] QuantiFERON Mitogen Value LC >10.00 [facility] Comment on above: Result Comment: Perf ormed At: [address] [id number] Kat Arevalo PhD Ph:[phone] Performed By: #### 4 [id number], [id number] #### [facility] (DEFAULT) [address] [place] [address] QuantiFERON Nil Value LC 0.01 IU/mL [facility] Comment on above: Performed By: #### 4 [id number], [id number] #### [facility] (DEFAULT) [address] [place] [address] QuantiFERON-TB Gold Plus LCo n 03-08-2020 QuantiFERON-TB Gold Plus LC Negative Negative [facility] Comment on above: Result Comment: Perf ormed At: [address] [id number] Kat Arevalo PhD Ph:[phone] Performed By: #### 4 [id number], [id number] #### [facility] (DEFAULT) [address] [place] [address] QuantiFERON Incubation LC Incubation performed. [facility] Comment on above: Result Comment: Perf ormed At: [address] [id number] Kat Arevalo PhD Ph:[phone] Performed By: #### 4 [id number], [id number] #### [facility] (DEFAULT) [address] [place] [address] HBSab Qnt LCon 03-05-2020 Hep B Surf Ab Quant LC 145.6 mIU/mL Immunity>9.9 [facility] Comment on above: Result Comment: Stat us of Immunity Anti-HBs Level Inconsistent with Immunity 0.0 - 9.9 Consistent with Immunity >9.9 Performed At: [facility] [address] [place], [place] [id number] Kat Arevalo PhD Ph:[phone] Performed By: #### 1 [id number], [id number] #### [facility] (DEFAULT) [address] [place] [address] Measles/Mumps/Rubella Immuni ty on 03-05-2020 Mumps Abs, IgG LC 69.5 AU/mL Immune >10.9 [facility] Comment on above: Result Comment: Nega tive <9.0 Equivocal 9.0 - 10.9 Positive >10.9 A positive result generally indicates past exposure to Mumps virus or previous vaccination. Performed At: [facility] [address] [place] [id number] Kat Arevalo PhD Ph:[phone] Performed By: #### 1 [id number], [id number] #### [facility] (DEFAULT) [address] [place] [address] Rubella Antibodies, IgG LC 1.75 index Immune >0.99 [facility] Comment on above: Result Comment: Non- immune <0.90 Equivocal 0.90 - 0.99 Immune >0.99 Performed By: #### 1 [id number], [id number] #### [facility] (DEFAULT) [address] [place] [address] Rubeola Ab, IgG, EIA LC >300.0 Immune >16.4 [facility] Comment on above: Result Comment: Nega tive <13.5 Equivocal 13.5 - 16.4 Positive >16.4 Presence of antibodies to Rubeola is presumptive evidence of immunity except when acute infection is suspected. Performed By: #### 1 [id number], [id number] #### [facility] (DEFAULT) [address] [place] [address] Nicotine Metabolite, Urine L Con 03-05-2020 Cotinine LC Negative Bntehf=[id number] [facility] Comment on above: Result Comment: Perf ormed At: [facility] [place] [address] [place], [place] [id number] Jose Schwartz PhD Ph:[phone] Performed By: #### 1 [id number] #### [facility] (DEFAULT) [address] [place] [address] Vital Signs Date Time Vital Sign Value Performing Clinician Faci lity 06-19-2024 10:40-0500 Body mass index (BMI) [Ratio] 40.02 kg/m2 Suri Billings PA Work Phone: [facility] 06-19-2024 10:40-0500 Body weight 99.25 kg Suri Billings PA Work Phone: [facility] 06-19-2024 10:40-0500 Diastolic blood pressure 74 mm[Hg] Suri Billings PA Work Phone: [facility] 06-19-2024 10:40-0500 Systolic blood pressure 110 mm[Hg] Suri Parker PA Work Phone: [facility] 06-05-2024 11:46-0500 Body mass index (BMI) [Ratio] 39.69 kg/m2 Suri Parker PA Work Phone: [facility] 06-05-2024 11:46-0500 Body weight 98.43 kg Suri Billings PA Work Phone: [facility] 06-05-2024 11:46-0500 Diastolic blood pressure 80 mm[Hg] Suri Billings PA Work Phone: [facility] 06-05-2024 11:46-0500 Systolic blood pressure 114 mm[Hg] Suri Billings PA Work Phone: [facility] 05-22-2024 09:57-0400 Body mass index (BMI) [Ratio] 39.1 kg/m2 Jasiel Meade DO Work Phone: [facility] 05-22-2024 09:57-0400 Body weight 96.98 kg Jasiel Deshaun DO Work Phone: [facility] 05-22-2024 09:57-0400 Diastolic blood pressure 72 mm[Hg] Jasiel Deshaun DO Work Phone: [facility] 05-22-2024 09:57-0400 Systolic blood pressure 110 mm[Hg] Jasiel Deshaun DO Work Phone: [facility] 05-08-2024 09:31-0400 Body mass index (BMI) [Ratio] 38.59 kg/m2 Suri LORENZO Work Phone: [facility] 05-08-2024 09:31-0400 Body weight 95.71 kg Suri LORENZO Work Phone: [facility] 05-08-2024 09:31-0400 Diastolic blood pressure 78 mm[Hg] Suri LORENZO Work Phone: [facility] 05-08-2024 09:31-0400 Systolic blood pressure 120 mm[Hg] Suri LORENZO Work Phone: [facility] Healthcare Encounters Encounter Date Encounter Type Care Provider Facility Start: 06-19-2024 End: 06-19-2024 Bamboo flowsheet Suri LORENZO Work Phone: [facility] Start: 06-19-2024 End: 06-19-2024 Bamboo flowsheet Suri LORENZO Work Phone: [facility] Start: 06-19-2024 End: 06-19-2024 flow sheet Suri LORENZO Work Phone: [facility] Comment on above: Third trimester preg jeffrey; 34 weeks gestation of Start: 06-19-2024 End: 06-19-2024 ambulatory SURI CANALES Not Available Start: 06-05-2024 End: 06-05-2024 Bamboo flowsheet Suri LORENZO Work Phone: [facility] Start: 06-05-2024 End: 06-05-2024 Bamboo flowsheet Suri LORENZO Work Phone: [facility] Start: 06-05-2024 End: 06-05-2024 flow sheet Suri LORENZO Work Phone: [facility] Comment on above: 32 weeks gestation o f ; Third trimester Start: 06-05-2024 End: 06-05-2024 ambulatory SURI CANALES Not Available Start: 05-22-2024 End: 05-22-2024 Bamboo flowsheet Jasiel Deshaun DO Work Phone: [facility] Start: 05-22-2024 End: 05-22-2024 Bamboo flowsheet Jasiel Deshaun DO Work Phone: [facility] Start: 05-22-2024 End: 05-22-2024 flow sheet Jasiel Deshaun DO Work Phone: [facility] Comment on above: 30 weeks gestation o f ; Third trimester ; Gestational diabetes mellitus (GDM), antepartum, gestational diabetes method of control unspecified Start: 05-22-2024 End: 05-22-2024 ambulatory JASIEL DESHAUN Not Available Start: 05-08-2024 End: 05-08-2024 Bamboo flowsheet Suri LORENZO Work Phone: [facility] Start: 05-08-2024 End: 05-08-2024 Bamboo flowsheet Suri LORENZO Work Phone: [facility] Start: 05-08-2024 End: 05-08-2024 flow sheet Suri LORENZO Work Phone: [facility] Comment on above: 28 weeks gestation o f ; Third trimester ; size inconsistent with dates Start: 05-08-2024 End: 05-08-2024 ambulatory SURI CANALES Not Available Start: 05-01-2024 End: 05-01-2024 Clinisync Result Encounter Jasiel Deshaun DO Work Phone: [facility] External Department Unsolicited Start: 05-01-2024 End: 05-01-2024 Clinisync Result Encounter Jasiel Deshaun DO Work Phone: [facility] Unsolicited Start: 04-17-2024 End: 04-17-2024 ambulatory JASIEL DESHAUN Not Available Start: 04-10-2024 End: 04-10-2024 ambulatory JASIEL R DESHAUN [facility] Start: 03-13-2024 End: 03-13-2024 ambulatory SURI CANALES Not Available Start: 02-13-2024 End: 02-13-2024 ambulatory JASIEL DESHAUN Not Available Start: 01-17-2024 End: 01-17-2024 ambulatory SURI PARKER Not Available Start: 08-22-2023 End: 08-22-2023 ambulatory JASIEL DESHAUN Not Available Start: 07-04-2023 End: 07-04-2023 ambulatory JASIEL DESHAUN Not Available Start: 08-21-2022 End: 08-21-[address] [place] [facility] [place] Start: 08-08-2021 End: 08-09-2021 ambulatory SHANTELLE HDEZ [facility] Start: 12-21-2020 End: 12-22-2020 [facility] Start: 12-21-2020 End: 12-21-2020 Subsequent hospital visit by physician Shantelle Dean PA-C Work Phone: [facility] Start: 03-18-2020 End: 03-18-2020 Subsequent hospital [...] - Td) DTaP/Tdap/Td vaccine (7 - Td) [place], [place] Start: 10-23-2024 End: 10-23-2024 Patient encounter procedure 10/23/2024 10:20 AM EDT Office Visit [facility] [address] [place] [id number] Jasiel Meade, DO [address] [place], [place] [id number] [facility] Start: 08-25-2024 End: 08-25-2024 Patient encounter procedure 08/25/2024 9:00 AM EST Office Visit [facility] [address] [place] [id number] Jasiel Meade, DO [address] [place] [address] [facility] Start: 07-03-2024 End: 07-03-2024 Patient encounter procedure 07/03/2024 10:40 AM EST Routine [facility] [address] [place] [phone] Jasiel Meade, DO [address] [place] [address] [facility] Start: 07-02-2024 End: 07-02-2024 Professional / ancillary services management 07/02/2024 2:00 PM EST Ancillary Procedure [facility] [address] [place] [address] [facility] Start: 06-19-2024 End: 06-19-2024 Patient encounter procedure [facility] Comment on above: Arrived Start: 06-05-2024 End: 06-05-2024 Patient encounter procedure [facility] Comment on above: Arrived Start: 05-22-2024 End: 05-22-2025 US biophysical profile w non stress test US biophysical profile w non stress test Imaging Routine Gestational diabetes mellitus (GDM), antepartum, gestational diabetes method of control unspecified Expected: 05/22/2024 (Approximate), Expires: 05/22/2025 [facility] Comment on above: Expected: 05/22/2024 (Approximate), Expires: 05/22/2025 Start: 05-22-2024 End: 05-22-2025 US for US OB SCAN FOR GROWTH Imaging Routine Third trimester Gestational diabetes mellitus (GDM), antepartum, gestational diabetes method of control unspecified Expected: 05/22/2024 (Approximate), Expires: 05/22/2025 [facility] Work Phone: Comment on above: Expected: 05/22/2024 (Approximate), Expires: 05/22/2025 Start: 05-22-2024 End: 05-22-2024 Patient encounter procedure [facility] Comment on above: Arrived Start: 05-22-2024 End: 05-22-2024 Professional / ancillary services management 05/22/2024 9:00 AM EDT Ancillary Procedure [facility] [address] [place] [address] [place] [address] [facility] Start: 05-08-2024 End: 05-08-2025 US for US OB SCAN FOR GROWTH Imaging Routine size inconsistent with dates Expected: 05/08/2024 (Approximate), Expires: 05/08/2025 [facility] Work Phone: Comment on above: Expected: 05/08/2024 (Approximate), Expires: 05/08/2025 Start: 05-08-2024 End: 05-08-2024 Patient encounter procedure [facility] Comment on above: Arrived Start: 03-30-2024 Influenza vaccination Influenza Vacc ine (#1) [facility] Start: 03-18-2023 Screening for malign ant neoplasm of cervix Cervical cancer screen [employer] Work Phone: Start: 06-12-2021 Screening for malign ant neoplasm of cervix Cervical cancer screen [place], [place] Start: 03-30-2021 Influenza vaccination [facility] Start: 03-30-2020 Influenza vaccination Flu vaccine (# 1) [place], [place] Start: 06-12-2019 Screening for Chlamy flaco trachomatis Chlamydia screen [place], [place] Start: 09-13-2011 Hepatitis A vaccine (2 of 2 - 2-dose series) Hepatitis A vaccine (2 of 2 - 2-dose series) [place], [place] Start: 2007 COVID-19 Vaccine (1) COVID-19 Vaccin e (1) [employer] Phone: Start: 1995 Hepatitis C screening Hepatitis C sc reen [employer] Phone: End: 12-21-2020 Mumps Antibody, IgG Mumps Antibody, IgG Lab Routine Once for 1 Occurrences starting 12/21/2020 until 12/21/2020 [employer] Phone: Comment on above: Once for 1 Occurrenc es starting 12/21/2020 until 12/21/2020 Mumps Antibody, IgG Mumps Antibo dy, IgG Lab Routine 12/21/2020 4:27 PM EDT [employer] Phone: End: 12-21-2020 Quantiferon TB Gold Quantiferon TB Gold Microbiology Routine Once for 1 Occurrences starting 12/21/2020 until 12/21/2020 [employer] Phone: Comment on above: Once for 1 Occurrenc es starting 12/21/2020 until 12/21/2020 Quantiferon TB Gold Quantiferon TB Gold Microbiology Routine 12/21/2020 4:27 PM EDT [employer] Phone: End: 12-21-2020 Rubeola Antibody, IgG Rubeola Antibody, IgG Lab Routine Once for 1 Occurrences starting 12/21/2020 until 12/21/2020 [employer] Phone: Comment on above: Once for 1 Occurrenc es starting 12/21/2020 until 12/21/2020 Rubeola Antibody, IgG Rubeola An tibody, IgG Lab Routine 12/21/2020 4:27 PM EDT [employer] Phone: End: 12-21-2020 Varicella Zoster Antibody, IgG Varicella Zoster Antibody, IgG Lab Routine Once for 1 Occurrences starting 12/21/2020 until 12/21/2020 [employer] Phone: Comment on above: Once for 1 Occurrenc es starting 12/21/2020 until 12/21/2020 Varicella Zoster Antibody, IgG Varicella Zoster Antibody, IgG Lab Routine 12/21/2020 4:27 PM EDT [employer] Phone: Immunizations Immunization Date Immunization Notes Care Provider [facility] 06-28-2021 influenza virus vacc ine, unspecified formulation Jasiel Deshaun [employer] Work Phone: [facility] 03-09-2020 tuberculin skin test ; purified protein derivative solution, intradermal [facility], [place] 04-28-2019 influenza, injectabl e, quadrivalent, preservative free [facility] 06-12-2018 influenza, injectabl e, quadrivalent, preservative free [facility] 05-01-2018 tuberculin skin test ; purified protein derivative solution, intradermal [facility] 09-12-2017 hepatitis B vaccine, adult dosage [facility] 04-13-2017 Human Papillomavirus 9-valent vaccine [facility] 04-10-2017 hepatitis B vaccine, adult dosage [facility] 03-07-2017 hepatitis B vaccine, adult dosage [facility] 03-07-2017 meningococcal polysaccharide (groups A, C, Y and W-135) diphtheria toxoid conjugate vaccine (MCV4P) [facility] 03-07-2017 tuberculin skin test ; purified protein derivative solution, intradermal [facility] 02-26-2017 tetanus toxoid, redu juve diphtheria toxoid, and acellular pertussis vaccine, adsorbed [facility], [place] 02-26-2017 tuberculin skin test ; purified protein derivative solution, intradermal [place], [place] 08-13-2014 Human Papillomavirus 9-valent vaccine [place], [place] 04-01-2014 meningococcal polysaccharide (groups A, C, Y and W-135) diphtheria toxoid conjugate vaccine (MCV4P) [place] 02-10-2014 Human Papillomavirus 9-valent vaccine [place] Payers Date Payer Category Payer Private Health Insurance [employer] [id number] 2022 Unknown [employer] [id number] 2022-Present [address] [place] [address] [id number] 2022 Unknown [id number] 2021 Unknown [id number] 2016 Private Health Insurance SHIV FIERRO [id number] 2016-Present [phone] [address] [place] [address] [id number] 1995 Unknown [id number] [id number]. 175 1995 Unknown [id number] 2.16.840.1.257623.3.579.2. 593 1995 Unknown [id number] 2.16.840.1.435374.3.579.2. 1286 1995 Unknown [id number] 2.16.840.1.236391.3.579.2. 1259 1995 Unknown [id number] 2.16.840.1.306209.3.579.2. 9 1995 Unknown [id number] 2.16.840.1.004368.3.579.2. 1259 1995 Unknown [id number] 2.16.840.1.363400.3.579.2. 1259 1995 Unknown [id number] 2.16.840.1.233632.3.579.2. 1259 1995 Unknown [id number] 2.16.840.1.337902.3.579.2. 9 1995 Unknown [id number] 2.16.840.1.855588.3.579.2. 1259 1995 Unknown [id number] 2.16.840.1.542307.3.579.2. 1259 1995 Unknown [id number] 2.16.840.1.764039.3.579.2. 1259 1995 Unknown [id number] [id number]. 1259 1959 Unknown [id number] Social History Date Type Detail Facility Start: 03-18-2020 End: 01-17-2024 Tobacco smoking status [facility] Never smoker [facility] Start: 03-18-2020 End: 01-17-2024 Tobacco use and exposure Never used [employer] Start: 02-05-2017 Alcohol Comment rarely [employer] Sex Assigned At Not on file [facility] Start: 1995 Sex Assigned At Female [employer] Work Phone: Start: 04-17-2024 End: 06-19-2024 Alcoholic beverage intake Ex-drinker (finding) [facility] Start: 01-17-2024 End: 04-17-2024 Alcoholic beverage intake [facility] Start: 01-17-[address] [facility] Start: 11-04-2023 [facility] Start: 02-20-2023 Gender identity Identifies as female gender (finding) [facility] Start: 02-20-2023 Sexual orientation Heterosexual (finding) [facility] Medical Equipment Procedure Code Equipment Code Equipment Original Text Equipment Identifier Dates Inject 1 each un flory the skin See administration instructions Use four times daily with insulin pen. [id number] Start: 05-26-2024 End: 06-25-2024 History of Present illness Narrative 06-19-2024 BJ Garcia - 06/19/2024 10:20 AM EST Note Date & Type Note Facility 06-19-2024 History of Presen t illness Narrative Reason [...] Exam Constitutional: Appearance: Normal appearance. She is normal weight. HENT: Head: Normocephalic. Cardiovascular: Rate and Rhythm: Normal rate. Pulses: Normal pulses. Pulmonary: Effort: Pulmonary effort is normal. Breath sounds: Normal breath sounds. Abdominal: Palpations: Abdomen is soft. Musculoskeletal: General: Normal range of motion. Neurological: General: No focal deficit present. Mental Status: She is alert and oriented to person, place, and time. Psychiatric: Mood and Affect: Mood normal. Behavior: Behavior normal. Thought Content: Thought content normal. Judgment: Judgment normal. Vitals and nursing note reviewed. Vitals: Estimated body mass index is 40.02 kg/m as calculated from the following: Height as of 03/22/23: 5' 2 . Weight as of this encounter: 218 lb 12.8 oz. BP: 110/74 Patient's last menstrual period was 10/21/2023. ASSESSMENT & PLAN ICD-10-CM 1. Third trimester Z34.93 2. 34 weeks gestation of Z3A.34 Return OB: Patient presents today for a routine obstetrics appointment. Patient is currently 34w4d . Patient states she is doing well but has complaints of being tired due to current . Patient has verbalizes frequent movement. labor precautions was discussed/given and patient was instructed to perform kick counts three times a day. No orders of the defined types were placed in this encounter. Follow Up: Patient is to return to office in 2 week for routine OB appointment. Documented by Radha Richards LPN on behalf of: BJ Garcia documented in this encounter [facility] History of Present illness Narrative 06-05-2024 BJ [...] nursing note reviewed. Exam conducted with a assistant professor of surgery present. Vitals: Estimated body mass index is [...] nursing note reviewed. Exam conducted with a assistant professor of surgery present. Vitals: Estimated body mass index is [...] nursing note reviewed. Exam conducted with a assistant professor of surgery present. Vitals: Estimated body mass index is [...] of: BJ Garcia documented in this encounter [facility] Evaluation note Note Date & [...] of control unspecified documented in this encounter [facility] Evaluation note Note Date & Type Note Facility Evaluation note Diagnosis 32 weeks gestation of Third trimester state, incidental documented in this encounter [facility] Evaluation note Note Date & Type Note Facility Evaluation note Diagnosis Third trimester state, incidental 34 weeks gestation of documented in this encounter [facility] Summary Purpose Family History No Family History Records FoundNo Family History Records FoundNo Family History Records FoundNo Family History Records FoundNo Family History Records FoundNo Family History Records Found Advance Directives No Advanced Directives Records FoundDocuments on File Type Date Recorded 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 ACP-Advance Directive ACP-Power of [employer] Additional Source Comments INFORMATION SOURCE (unrecogn ized section and content) DATE CREATED AUTHOR 03/12/2020 [facility] DATE CREATED AUTHOR AUTHOR'S ORGANIZ ATION 08/20/2021 [facility] DATE CREATED AUTHOR AUTHOR'S ORGANIZ ATION 02/18/2022 [facility] DATE CREATED AUTHOR AUTHOR'S ORGANIZ ATION 08/25/2022 [facility] DATE CREATED AUTHOR AUTHOR'S ORGANIZ ATION 04/12/2024 [facility] DATE CREATED AUTHOR AUTHOR'S ORGANIZ ATION 06/22/2024 [facility] dical Specialists [employer] Care Teams (unrecognized sec tion and content) Elderly Sitter Relationship Specialty [place] [address] [place] [address] PCP - General Family Medicine 03/22/23 Elderly Sitter Relationship Specialty [place] [address] [place] [address] PCP - General Family Medicine 03/22/23 Elderly Sitter Relationship Specialty [place] [address] [place] [address] PCP - General Family Medicine 03/22/23 Suri Canales PA [address] [place] [address] [place] [address] PCP - Medical [employer] 07/30/22 07/29/99 Elderly Sitter Relationship Specialty [place] [address] [place] [address] PCP - General Family Medicine 03/22/23 Suri Canales PA [address] [place] [address] [place] [address] PCP - Medical [employer] 07/30/22 07/29/99 Elderly Sitter Relationship Specialty [place] [address] [place] [address] PCP - General Family Medicine 03/22/23 Suri Canales [place] [facility] [place] [address] PCP - Medical [employer] 07/30/22 07/29/99 Elderly Sitter Relationship Specialty [place] [address] [place] [address] PCP - General Family Medicine 03/22/23 Suri Canales PA [facility] [place], [facility] PCP - Medical [employer] 07/30/22 07/29/99 Elderly Sitter Relationship Specialty [place] [address] [place] [address] PCP - General Family Medicine 03/22/23 Suri Canales PA [address] [place], [place] [address]sujey [place], [facility] PCP - Medical [employer] 07/30/22 07/29/99 Elderly Sitter Relationship Specialty Start [place] [address] [place] [address] PCP - General Family Medicine 03/22/23 Suri Canales PA [facility] [address] (work) PCP - Medical [employer] 07/30/22 07/29/99 Reason for Visit (unrecogniz [...] BE BASED ON THE PRIMARY CLINICAL RECORDS. [employer] [facility]. provides no warranty or guarantee of the accuracy or completeness of information in this document.
[2024-06-23 17:26] VITALS: BP 141/76; PULSE 95
== END 2024-06-23 17:51 | disposition home or self-care (01) ==
LOC: FBCO 07:13 → FBC 17:22
PROVIDERS: Visit Provider Obstetrics & Gynecology
DX: O24.419 Gestational diabetes mellitus in pregnancy, unspecified control (principal); Z3A.35 35 weeks gestation of pregnancy
CPT/HCPCS: 59025

== ENCOUNTER 2024-06-25 07:16 | Outpatient (OUT) | payer OTHER, SELFPAY ==
--- OUTSIDE RECORDS SUMMARY | 2024-06-25 07:19 | XMS_ITS | CCD ---
Author Organization [facility] Care Team Providers Care [employer] Name Role Phone Shantelle Dean Primary Care Provider [phone] JIMMY MEEHAN Referring Unavailable SHANTELLE DEAN Primary [...] UA Negative Negative - 4(70) +++ mg/dL [facility] Healthcare Blood, UA Negative Negative - 50 Bib/mcL [facility] Clarity, UA Clear [facility] Color, UA Yellow [facility] Glucose, UA Negative Negative - 1999(110) ++++ mg/dL [facility] Interpretation and review of laboratory results Abnormal [facility] Ketones, UA Negative Negative - 160(16) ++++ mg/dL [facility] Leukocytes, UA Trace Negative - 500+++ Alvaro/mcL [facility] Nitrite, UA Negative Negative - Positive [facility] pH, UA 7 5 - 9 [facility] Protein, UA Negative Negative - 1999(20) ++++ mg/dL [facility] Healthcare Spec Grav, UA 1.015 1 - 1.[address] [facility] care Urobilinogen, UA 0.2 0.2 - 12 mg/dL [facility] Urinalysis macro (dipstick) panel (U)on 05-22-2024 Bilirubin, UA Negative Negative - 4(70) +++ mg/dL [facility] Blood, UA Negative Negative - 50 Bib/mcL [facility] Clarity, UA Clear [facility] Color, UA Yellow [facility] Glucose, UA Negative Negative - 1999(110) ++++ mg/dL [facility] Interpretation and review of laboratory results Abnormal [facility] Ketones, UA Negative Negative - 160(16) ++++ mg/dL [facility] Healthcare Leukocytes, UA Positive Negative - 500+++ Alvaro/mcL [facility] Comment on above: small Nitrite, UA Negative Negative - Positive [facility] pH, UA 7 5 - 9 [facility] Protein, UA Negative Negative - 1999(20) ++++ mg/dL [facility] Healthcare Spec Grav, UA 1.015 1 - 1.03 [facility] Urobilinogen, UA 0.2 0.2 - 12 mg/dL [facility]inal[facility] macro (dipstick) panel (U)on 05-08-2024 Bilirubin, UA Negative Negative - 4(70) +++ mg/dL [facility] Blood, UA Negative Negative - 50 Bib/mcL [facility] Clarity, UA Clear [facility] re Color, UA Yellow [facility] e Glucose, UA Negative Negative - 1999(110) ++++ mg/dL [facility] Interpretation and review of laboratory results Abnormal [facility] Ketones, UA Negative Negative - 160(16) ++++ mg/dL [facility] Leukocytes, UA Positive Negative - 500+++ Alvaro/mcL [facility] Comment on above: small Nitrite, UA Negative Negative - Positive [facility] pH, UA 7.0 5 - 9 [facility] Protein, UA Negative Negative - 1999(20) ++++ mg/dL [facility] Spec Grav, UA 1.020 1 - 1.03 [facility] Urobilinogen, UA 0.2 0.2 - 12 mg/dL [facility] e GLUCOSE TOLERANCE 3 HOURon 1 GLUCOSE TOLERANCE 3 HOUR High mg/dL [facility] Comment on above: GLU FAST 97H (<95) C ol: 05/01/24 0722 GLU 1HR 173 (<180) Col: 05/01/24 0823 GLU 2HR 162H (<155) Col: 05/01/24 0924 GLU 3HR 114 (<140) Col: 05/01/24 1022 Interpretation and review of laboratory results Abnormal [facility] PAP ACOG PANEL 2: 21 to 29on 08-25-2022 . . Normal [facility] Comment on above: Performed By: #### 4 [id number] #### [facility] [address] [address] [address] Matias Shukla Age Gdln ACOG Testing - Normal [facility] Comment on above: Performed By: #### 4 [id number] #### [facility] [address] [place], [place] [address] Dr. Matias Shukla DIAGNOSIS: Comment Normal [facility] Comment on above: Result Comment: NEGA TIVE FOR INTRAEPITHELIAL LESION OR MALIGNANCY. Performed By: #### 4 [id number] #### [facility] [address] [place] [address] Dr. Matias Shukla Methodology: Comment [facility] Comment on above: Result Comment: This liquid based ThinPrep(R) pap test was screened with the use of an image guided system. Performed By: #### 4 [id number] #### [facility] [address] [place] [address] Dr. Matias Shukla Note: Comment Normal [facility] Comment on above: Result Comment: The Pap smear is a screening test designed to aid in the detection of premalignant and malignant conditions of the uterine cervix. It is not a diagnostic procedure and should not be used as the sole means of detecting cervical cancer. Both false-positive and false-negative reports do occur. . Performed By: #### 4 [id number] #### [facility] [address] [place] [address] Dr. Matias Shukla Performed by: Comment Normal [facility] Comment on above: Result Comment: Monika Prieto, Cdl A Driver (ASCP) Performed By: #### 4 [id number] #### [facility] [address] [place] [address] Dr. Matias Shukla Reflex Criteria: Comment [facility] Comment on above: Result Comment: The HPV DNA reflex criteria were not met with this specimen result therefore, no HPV testing was performed. . Performed By: #### 4 [id number] #### [facility] [address] [place] [address] Dr. Matias Shukla Specimen adequacy: Comment Normal [facility] Comment on above: Result Comment: Sati sfactory for evaluation. Endocervical and/or squamous metaplastic cells (endocervical component) are present. Performed By: #### 4 [id number] #### [facility] [address] [place] [address] Dr. Matias Shukla MUMPS IGG BLDon 02-07-2022 MUMPS IGG 1.14 Normal [facility] Comment on above: Result Comment: RAN IN TRIPLICATE NORMAL RANGES: < OR = 0.9O NEGATIVE ; NO DETECTABLE IgG ANTIBODY TO MUMPS 0.91 - 1.09 EQUIVOCAL; REPEAT TESTING SUGGESTED > OR = 1.10 POSITIVE ; INDICATES PRESENCE OF DETECTABLE IgG ANTIBODY TO MUMPS Performed By: #### 1 0055, 84601, [id number], [id number] #### [facility] [address] RUBELLAon 02-07-2022 RUBELLA 1.73 Normal [facility] Comment on above: Result Comment: NORM AL RANGES: < OR = 0.9O NEGATIVE ; NO DETECTABLE IgG ANTIBODY TO RUBELLA 0.91 - 1.09 EQUIVOCAL; REPEAT TESTING SUGGESTED > OR = 1.10 POSITIVE ; INDICATES PRESENCE OF DETECTABLE IgG ANTIBODY TO RUBELLA VIRUS Performed By: #### 1 0055, 82392, [id number], [id number] #### [facility] [address] RUBEOLA MEASLES IGGon 2021 RUBEO IGG 4.62 Normal [facility] Comment on above: Result Comment: NORM AL RANGES: < OR = 0.9O NEGATIVE ; NO DETECTABLE IgG ANTIBODY TO RUBEOLA 0.91 - 1.09 EQUIVOCAL; REPEAT TESTING SUGGESTED > OR = 1.10 POSITIVE ; INDICATES PRESENCE OF DETECTABLE IgG ANTIBODY TO RUBEOLA Performed By: #### 1 0055, 71303, 16188, 28553 #### [facility] [address] TB QUANTIFERON PLUSon 2021 MITOGEN MINUS NIL 8.15 IU/mL Normal [facility] Comment on above: Performed By: #### 3 1592 #### [facility] [address] NIL 0.03 IU/mL Normal [facility] Comment on above: Performed By: #### 3 1592 #### [facility] [address] TB QUANTIFERON Negative Normal NEGATIVE [facility] Comment on above: Result Comment: Eric tiferon TB Gold Interpretation (IU/mL): NEGATIVE: M. tuberculosis infection not likely. Nil: <=8.0 TB1 Antigen minus Nil (DY7BC-NJL): <0.35 OR >=0.35; and <25% of Nil value. TB2 Antigen minus Nil (VC3DF-NVX): <0.35 OR >=0.35; and <25% of Nil [...] (https://www.cdc.gov/tb/publications/guidlines/default.htm Performed By: #### 3 1592 #### [facility] [address] [place] [address], [facility] TB1 AG 0.03 IU/mL Normal [facility] Comment on above: Performed By: #### 3 1592 #### [facility] [address] [place] [address], [facility] TB1 AG MINUS NIL 0.00 IU/mL Normal [facility] Comment on above: Performed By: #### 3 1592 #### [facility] [address] [place] [address], [facility] TB2 AG 0.04 IU/mL Normal [facility] Comment on above: Performed By: #### 3 1592 #### [facility] [address] [place] [address], [facility] TB2 AG MINUS NIL 0.01 IU/mL Normal [facility] Comment on above: Performed By: #### 3 1592 #### [facility] [address] [place] [address], [facility] VARICELLA ZOSTER IGGon 02-07 VARICELLA IGG 2.60 [address] [facility] Comment on above: Result Comment: NORM AL RANGES: < OR = 0.9O NEGATIVE ; NO DETECTABLE IgG ANTIBODY TO VARICELLA-ZOSTER VIRUS 0.91 - 1.09 EQUIVOCAL; REPEAT TESTING SUGGESTED > OR = 1.10 POSITIVE ; INDICATES PRESENCE OF DETECTABLE IgG ANTIBODY TO VARICELLA-ZOSTER VIRUS Performed By: #### 1 0055, 62606, 95557, 04552 #### [facility] Esha WIGGINS. [address] HPV DNA High Riskon 08-19-19 22 HPV Interp [facility] Comment on above: Result Comment: This [...] purposes. Performed By: #### H PVH #### [address] [address] Weatherization Specialist: Rickey Watson MD HPV Type 16 Not detected [facility] Comment on above: Performed By: #### H PVH #### [address] [address] Weatherization Specialist: Rickey Watson MD HPV Type 18 Not detected [facility] Comment on above: Performed By: #### H PVH #### [facility] [address] [place] [address] Weatherization Specialist: Rickey Watson MD Other High Risk HPV Not detected [facility] Comment on above: Performed By: #### H PVH #### [facility] [address] [place] [address] Weatherization Specialist: Rickey Watson MD HPV DNA High Riskon 08-18-19 Source .GENITAL - NOT SPECIFIED Normal [facility] Comment on above: Performed By: #### H PVH #### [address] [address] Weatherization Specialist: Rickey Watson MD HPV Sample .THIN PREP Normal [facility] Comment on above: Performed By: #### H PVH #### [address] [address] Weatherization Specialist: Rickey Watson MD Chlamydia/GC DNA, TPon 08-10 Chlamydia Probe, TP Negative Normal NEG [facility] Comment on above: Result Comment: CHLA MYDIA [...] target. Performed By: #### C YTCGP #### [address] [address] Weatherization Specialist: Rickey Watson MD Gonorrhea Probe, TP Negative Normal NEG [facility] Comment on above: Result Comment: NEIS SERIA [...] target. Performed By: #### C YTCGP #### [address] [address] Weatherization Specialist: Rickey Watson MD Cytologyon 08-08-2021 Cytology (NOTE) INTERPRETATION Cervical material, (ThinPrep vial, Imaging-assisted review): Specimen Adequacy: Satisfactory for evaluation. - Endocervical/transfor mation zone component present. - Scant cellularity. Descriptive Diagnosis: Atypical squamous cells of undetermined significance (ASC-US). Cdl A Driver: AMANDA Michaels M.D. Electronically Signed Out rdd/08/18/2021 Amendments Originally Reported As: Procedure/Addendum Source: Clinical History LMP: Patient Name: Med Rec: Path Number: Fax: Normal [facility] Comment on above: Performed By: #### P PPVP #### [address] [id number] Weatherization Specialist: Rickey Watson MD QuantiFERON TBon 12-24-2020 Quanti Binu minus NIL 8.10 IU/mL [facility] Comment on above: Performed By: #### R UBI, LUIZ, MARITZA, VZI #### [facility] [address] [place] [address] [id number] Weatherization Specialist: Rickey Watson MD #### AQF #### On license of [facility] [address] [place] [address] Weatherization Specialist: Mark Grossman MD Quanti TB Gold Plus Negative Normal Negative [facility] Comment on above: Result Comment: (NOT E) [...] Mycobacterium tuberculosis Infection --- [place], 2010 (http://www.cdc.gov/mmwr/preview/mmwrhtml/ww4937y0.htm), for more information concerning test performance in low-prevalence populations and use in occupational screening. Performed By: #### R LUIZ MCKEON, MARITZA, VZI #### [facility] [address] [place], [place] [id number] Weatherization Specialist: Rickey Watson MD #### AQF #### [employer] [address] [place] [address] Weatherization Specialist: Mark Grossman MD Quanti TB1 minus NIL 0.00 IU/mL Normal 0.00-0.34 [facility] Comment on above: Performed By: #### R LUIZ MCKEON, MARITZA, VZI #### [facility] [address] [place], [place] [address] Weatherization Specialist: Rickey Watson MD #### AQF #### [facility] [address] [place] [address] Weatherization Specialist: Mark Grossman MD Quanti TB2 minus NIL 0.01 IU/mL Normal 0.00-0.34 [facility] Comment on above: Performed By: #### R LUIZ MCKEON, MARITZA, VZI #### [facility] [address] [place] [address] Weatherization Specialist: Rickey Watson MD #### AQF #### [facility] [address] [place] [address] Weatherization Specialist: Mark Grossman MD QuantiFERON NIL 0.01 IU/mL Normal [facility] Comment on above: Result Comment: (NOT E) Performed By: [facility] [address] [place] [address] Nitrocellulose Operator: Carolyn Wei MD Performed By: #### R UBI, LUIZ, MARITZA, VZI #### [address] [id number] Weatherization Specialist: Rickey Watson MD #### AQF #### [address] [id number] Weatherization Specialist: Mark Grossman MD Measles (Rubeola) Imon 12-22 Measles (Rubeola) Im 3.68 Normal >1.09 [facility] Comment on above: Result Comment: Interpretation: IMMUNE Reference Range: <0.91 Not Immune 0.91-1.09 Equivocal >1.09 Immune Performed By: #### R UBI, LUIZ, MARITZA, VZI #### [address] [id number] Weatherization Specialist: Rickey Watson MD #### AQF #### [address] [id number] Weatherization Specialist: Mark Grossman MD Mumps,Immun,Abon 12-22-2020 Mumps,Immun,Ab 1.16 Normal >1.09 [facility] Comment on above: Result Comment: Interpretation: IMMUNE Reference Range: <0.91 Not Immune 0.91-1.09 Equivocal >1.09 Immune Performed By: #### R UBI, LUIZ, MARITZA, VZI #### [place] [address] Weatherization Specialist: Rickey Watson MD #### AQF #### [address] [id number] Weatherization Specialist: Mark Grossman MD VZ Immunityon 12-22-2020 VZ Immunity 2.24 Normal >1.09 [facility] Comment on above: Result Comment: Interpretation: IMMUNE Reference Range: <0.91 Not Immune 0.91-1.09 Equivocal >1.09 Immune Performed By: #### R UBI, LUIZ, MARITZA, VZI #### [address] [place], [place] [id number] Weatherization Specialist: Rickey Watson MD #### AQF #### On license of [facility] [address] [place] [address] Weatherization Specialist: Mark Grossman MD Rubella Ab, IgGon 12-21-2020 Rubella Ab, IgG 16.2 IU/mL Normal [facility] Comment on above: Result Comment: REFERENCE RANGE: <5.0 NON-REACTIVE (non-immune) 5.0 TO 9.9 EQUIVOCAL >=10.0 REACTIVE (immune) Performed By: #### R UBI, LUIZ, MARITZA, VZI #### [facility] [address] [place] [address] [id number] Weatherization Specialist: Rickey Watson MD #### AQF #### On license of [facility] [address] [place] [address] Weatherization Specialist: Mark Grossman MD Rubella antibody, IgGOrdered By: Jimmy Meehan on 12-21-2020 Rubella virus IgG Ql (S) 16.2 IU/mL [facility]: Comment on above: REFERENCE RANGE: <5.0 NON-REACTIVE (non-immune) 5.0 TO 9.9 EQUIVOCAL >=10.0 REACTIVE (immune) quitchen Phone: Lab - Toxicology Resultson 0 03-11-2020 Lab - Toxicology Results [id number] Normal [facility] QuantiFERON TB Gold (In Tube ) LCon 03-08-2020 QuantiFERON Criteria LC Comment [facility] Comment on above: Result Comment: The QuantiFERON-TB Gold Plus result is determined by subtracting the Nil value from either TB antigen (Ag) tube. The mitogen tube serves as a control for the test. Performed By: #### 4 [id number], [id number] #### [facility] (DEFAULT) [address] [place] [address] QuantiFERON M. tuberculosis1 Ag Value LC 0.09 IU/mL [facility] Comment on above: Performed By: #### 4 [id number], [id number] #### [facility] (DEFAULT) [address] [place] [address] QuantiFERON M. tuberculosis2 Ag Value LC 0.08 IU/mL [facility] Comment on above: Performed By: #### 4 [id number], [id number] #### [facility] (DEFAULT) [address] [place] [address] QuantiFERON Mitogen Value LC >10.00 [facility] Comment on above: Result Comment: Perf ormed At: [address] [id number] Kat Arevalo PhD Ph:[phone] Performed By: #### 4 [id number], [id number] #### [facility] (DEFAULT) [address] [place] [address] QuantiFERON Nil Value LC 0.01 IU/mL [facility] Comment on above: Performed By: #### 4 [id number], [id number] #### [facility] (DEFAULT) [address] [place] [address] QuantiFERON-TB Gold Plus LCo n 03-08-2020 QuantiFERON-TB Gold Plus LC Negative Negative [facility] Comment on above: Result Comment: Perf ormed At: [address] [id number] Kat Arevalo PhD Ph:[phone] Performed By: #### 4 [id number], [id number] #### [facility] (DEFAULT) [address] [place] [address] QuantiFERON Incubation LC Incubation performed. [facility] Comment on above: Result Comment: Perf ormed At: [address] [id number] Kat Arevalo PhD Ph:[phone] Performed By: #### 4 [id number], [id number] #### [facility] (DEFAULT) [address] [place] [address] HBSab Qnt LCon 03-05-2020 Hep B Surf Ab Quant LC 145.6 mIU/mL Immunity>9.9 [facility] Comment on above: Result Comment: Stat us of Immunity Anti-HBs Level Inconsistent with Immunity 0.0 - 9.9 Consistent with Immunity >9.9 Performed At: [facility] [address] [place], [place] [id number] Kat Arevalo PhD Ph:[phone] Performed By: #### 1 [id number], [id number] #### [facility] (DEFAULT) [address] [place] [address] Measles/Mumps/Rubella Immuni ty on 03-05-2020 Mumps Abs, IgG LC 69.5 AU/mL Immune >10.9 [facility] Comment on above: Result Comment: Nega tive <9.0 Equivocal 9.0 - 10.9 Positive >10.9 A positive result generally indicates past exposure to Mumps virus or previous vaccination. Performed At: [facility] [address] [place] [id number] Kat Arevalo PhD Ph:[phone] Performed By: #### 1 [id number], [id number] #### [facility] (DEFAULT) [address] [place] [address] Rubella Antibodies, IgG LC 1.75 index Immune >0.99 [facility] Comment on above: Result Comment: Non- immune <0.90 Equivocal 0.90 - 0.99 Immune >0.99 Performed By: #### 1 [id number], [id number] #### [facility] (DEFAULT) [address] [place] [address] Rubeola Ab, IgG, EIA LC >300.0 Immune >16.4 [facility] Comment on above: Result Comment: Nega tive <13.5 Equivocal 13.5 - 16.4 Positive >16.4 Presence of antibodies to Rubeola is presumptive evidence of immunity except when acute infection is suspected. Performed By: #### 1 [id number], [id number] #### [facility] (DEFAULT) [address] [place] [address] Nicotine Metabolite, Urine L Con 03-05-2020 Cotinine LC Negative Qpzzzu=086 [facility] Comment on above: Result Comment: Perf ormed At: [facility] [place] [address] [place], [place] [id number] Jose Schwartz PhD Ph:[phone] Performed By: #### 1 [id number] #### [facility] (DEFAULT) [address] [place] [address] Vital Signs Date Time Vital Sign Value Performing Clinician Faci lity 06-19-2024 10:40-0500 Body mass index (BMI) [Ratio] 40.02 kg/m2 Suri Camden PA Work Phone: [facility] 06-19-2024 10:40-0500 Body weight 99.25 kg Suri Camden PA Work Phone: [facility] 06-19-2024 10:40-0500 Diastolic blood pressure 74 mm[Hg] Suri Camden PA Work Phone: [facility] 06-19-2024 10:40-0500 Systolic blood pressure 110 mm[Hg] Suri Parker PA Work Phone: [facility] 06-05-2024 11:46-0500 Body mass index (BMI) [Ratio] 39.69 kg/m2 Suri Parker PA Work Phone: [facility] 06-05-2024 11:46-0500 Body weight 98.43 kg Suri Camden PA Work Phone: [facility] 06-05-2024 11:46-0500 Diastolic blood pressure 80 mm[Hg] Suri Camden PA Work Phone: [facility] 06-05-2024 11:46-0500 Systolic blood pressure 114 mm[Hg] Suri Camden PA Work Phone: [facility] 05-22-2024 09:57-0400 Body mass index (BMI) [Ratio] 39.1 kg/m2 Jasiel Meade DO Work Phone: [facility] 05-22-2024 09:57-0400 Body weight 96.98 kg Jasiel Deshaun DO Work Phone: [facility] 05-22-2024 09:57-0400 Diastolic blood pressure 72 mm[Hg] Jasiel Deshaun DO Work Phone: [facility] 05-22-2024 09:57-0400 Systolic blood pressure 110 mm[Hg] Jasiel Deshaun DO Work Phone: [facility] 05-08-2024 09:31-0400 Body mass index (BMI) [Ratio] 38.59 kg/m2 Suri LORENZO Work Phone: [facility] 05-08-2024 09:31-0400 Body weight 95.71 kg Suri LORENZO Work Phone: [facility] 05-08-2024 09:31-0400 Diastolic blood pressure 78 mm[Hg] Suri LORENZO Work Phone: [facility] 05-08-2024 09:31-0400 Systolic blood pressure 120 mm[Hg] Suri LORENZO Work Phone: [facility] Healthcare Encounters Encounter Date Encounter Type Care Provider Facility Start: 06-19-2024 End: 06-19-2024 Bamboo flowsheet Suri LORENZO Work Phone: [facility] Start: 06-19-2024 End: 06-19-2024 Bamboo flowsheet Suri LORENZO Work Phone: [facility] Start: 06-19-2024 End: 06-19-2024 flow sheet Suri LORENZO Work Phone: [facility] Comment on above: Third trimester preg jeffrey; 34 weeks gestation of Start: 06-19-2024 End: 06-19-2024 ambulatory SURI CANALES Not Available Start: 06-05-2024 End: 06-05-2024 Bamboo flowsheet Suri LORENZO Work Phone: [facility] Start: 06-05-2024 End: 06-05-2024 Bamboo flowsheet Suri LORENZO Work Phone: [facility] Start: 06-05-2024 End: 06-05-2024 flow sheet Suri LORENZO Work Phone: [facility] Comment on above: 32 weeks gestation o f ; Third trimester Start: 06-05-2024 End: 06-05-2024 ambulatory SURI CANALES Not Available Start: 05-22-2024 End: 05-22-2024 Bamboo flowsheet Jasiel Deshaun DO Work Phone: [facility] Start: 05-22-2024 End: 05-22-2024 Bamboo flowsheet Jasiel Deshaun DO Work Phone: [facility] [facility] Start: 05-22-2024 End: 05-22-2024 flow sheet Jasiel Deshaun DO Work Phone: [facility] Comment on above: 30 weeks gestation o f ; Third trimester ; Gestational diabetes mellitus (GDM), antepartum, gestational diabetes method of control unspecified Start: 05-22-2024 End: 05-22-2024 ambulatory JASIEL DESHAUN Not Available Start: 05-08-2024 End: 05-08-2024 Bamboo flowsheet Suri LORENZO Work Phone: [facility] Start: 05-08-2024 End: 05-08-2024 Bamboo flowsheet Suri LORENZO Work Phone: [facility] Start: 05-08-2024 End: 05-08-2024 flow sheet Suri LORENZO Work Phone: [facility] Comment on above: 28 weeks gestation o f ; Third trimester ; size inconsistent with dates Start: 05-08-2024 End: 05-08-2024 ambulatory SURI CANALES Not Available Start: 05-01-2024 End: 05-01-2024 Clinisync Result Encounter Jasiel Deshaun DO Work Phone: [facility] External Department Unsolicited Start: 05-01-2024 End: 05-01-2024 Clinisync Result Encounter Jasiel Deshaun DO Work Phone: [facility] External Department Unsolicited Start: 04-17-2024 End: 04-17-2024 ambulatory JASIEL DESHAUN Not Available Start: 04-10-2024 End: 04-10-2024 ambulatory JASIEL R DESHAUN [facility] Start: 03-13-2024 End: 03-13-2024 ambulatory SURI CANALES Not Available Start: 02-13-2024 End: 02-13-2024 ambulatory JASIEL DESHAUN Not Available Start: 01-17-2024 End: 01-17-2024 ambulatory SURI PARKER Not Available Start: 08-22-2023 End: 08-22-2023 ambulatory JASIEL DESHAUN Not Available Start: 07-04-2023 End: 07-04-2023 ambulatory JASIEL DESHAUN Not Available Start: 08-21-2022 End: 08-21-[address] [facility] [place]: Start: 08-08-2021 End: 08-09-2021 ambulatory SHANTELLE HDEZ [facility] Start: 12-21-2020 End: 12-22-2020 [facility] Start: 12-21-2020 End: 12-21-2020 Subsequent hospital [...] - Td) DTaP/Tdap/Td vaccine (7 - Td) [place] Start: 10-23-2024 End: 10-23-2024 Patient encounter procedure 10/23/2024 10:20 AM EDT Office Visit [facility] [address] [place] [phone] Jasiel Meade, DO [address] [place], [place] [id number] [facility] Start: 08-25-2024 End: 08-25-2024 Patient encounter procedure 08/25/2024 9:00 AM EST Office Visit [facility] [address] [place] [id number] Jasiel Meade, DO [address] [place] [address] [facility] Start: 07-03-2024 End: 07-03-2024 Patient encounter procedure 07/03/2024 10:40 AM EST Routine [facility] [address] [place] [phone] Jasiel Meade, DO [address] [place] [address] [facility] Start: 07-02-2024 End: 07-02-2024 Professional / ancillary services management 07/02/2024 2:00 PM EST Ancillary Procedure [facility] [address] [place] [phone] [facility] Start: 06-19-2024 End: [...] control unspecified Expected: 05/22/2024 (Approximate), Expires: 05/22/2025 [facility] Comment on above: Expected: 05/22/2024 (Approximate), Expires: 05/22/2025 Start: 05-22-2024 End: 05-22-2025 US for US OB SCAN FOR GROWTH Imaging Routine Third trimester Gestational diabetes mellitus (GDM), antepartum, gestational diabetes method of control unspecified Expected: 05/22/2024 (Approximate), Expires: 05/22/2025 [facility] Work Phone: Comment on above: Expected: 05/22/2024 (Approximate), Expires: 05/22/2025 Start: 05-22-2024 End: 05-22-2024 Patient encounter procedure [facility] Comment on above: Arrived Start: 05-22-2024 End: 05-22-2024 Professional / ancillary services management 05/22/2024 9:00 AM EDT Ancillary Procedure [facility] [address] [place] [address] [place] [phone] [facility] Start: 05-08-2024 End: 05-08-2025 US for US OB SCAN FOR GROWTH Imaging Routine size inconsistent with dates Expected: 05/08/2024 (Approximate), Expires: 05/08/2025 [facility] Work Phone: Comment on above: Expected: 05/08/2024 (Approximate), Expires: 05/08/2025 Start: 05-08-2024 End: 05-08-2024 Patient encounter procedure [facility] Comment on above: Arrived Start: 03-30-2024 Influenza vaccination Influenza Vacc ine (#1) [facility] Start: 03-18-2023 Screening for malign ant neoplasm of cervix Cervical cancer screen [employer] Work Phone: Start: 06-12-2021 Screening for malign ant neoplasm of cervix Cervical cancer screen [place], [place] Start: 03-30-2021 Influenza vaccination [facility] Start: 03-30-2020 Influenza vaccination Flu vaccine (# 1) [place] Start: 06-12-2019 Screening for Chlamy flaco trachomatis Chlamydia screen [place], [place] Start: 09-13-2011 Hepatitis A vaccine (2 of 2 - 2-dose series) Hepatitis A vaccine (2 of 2 - 2-dose series) [place], [place] Start: 2007 COVID-19 Vaccine (1) COVID-19 Vaccin e (1) [facility] Phone: Start: 1995 Hepatitis C screening Hepatitis C sc reen [place] [employer] Phone: End: 12-21-2020 Mumps Antibody, IgG Mumps Antibody, IgG Lab Routine Once for 1 Occurrences starting 12/21/2020 until 12/21/2020 [facility] Phone: Comment on above: Once for 1 Occurrenc es starting 12/21/2020 until 12/21/2020 Mumps Antibody, IgG Mumps Antibo dy, IgG Lab Routine 12/21/2020 4:27 PM EDT [employer] Phone: End: 12-21-2020 Quantiferon TB Gold Quantiferon TB Gold Microbiology Routine Once for 1 Occurrences starting 12/21/2020 until 12/21/2020 [facility] Phone: Comment on above: Once for 1 Occurrenc es starting 12/21/2020 until 12/21/2020 Quantiferon TB Gold Quantiferon TB Gold Microbiology Routine 12/21/2020 4:27 PM EDT [facility] Phone: End: 12-21-2020 Rubeola Antibody, IgG Rubeola Antibody, IgG Lab Routine Once for 1 Occurrences starting 12/21/2020 until 12/21/2020 [facility] Phone: Comment on above: Once for 1 Occurrenc es starting 12/21/2020 until 12/21/2020 Rubeola Antibody, IgG Rubeola An tibody, IgG Lab Routine 12/21/2020 4:27 PM EDT [facility] Phone: End: 12-21-2020 Varicella Zoster Antibody, IgG Varicella Zoster Antibody, IgG Lab Routine Once for 1 Occurrences starting 12/21/2020 until 12/21/2020 [facility] Phone: Comment on above: Once for 1 Occurrenc es starting 12/21/2020 until 12/21/2020 Varicella Zoster Antibody, IgG Varicella Zoster Antibody, IgG Lab Routine 12/21/2020 4:27 PM EDT [facility] Phone: Immunizations Immunization Date Immunization Notes Care Provider [facility] 06-28-2021 influenza virus vacc ine, unspecified formulation Jasiel Deshaun [employer] Work Phone: [facility] 03-09-2020 tuberculin skin test ; purified protein derivative solution, intradermal [facility] 04-28-2019 influenza, injectabl e, quadrivalent, preservative free [facility] 06-12-2018 influenza, injectabl e, quadrivalent, preservative free [facility] 05-01-2018 tuberculin skin test ; purified protein derivative solution, intradermal [facility] 09-12-2017 hepatitis B vaccine, adult dosage [facility] 04-13-2017 Human Papillomavirus 9-valent vaccine [facility] 04-10-2017 hepatitis B vaccine, adult dosage [facility] 03-07-2017 hepatitis B vaccine, adult dosage [facility] 03-07-2017 meningococcal polysaccharide (groups A, C, Y and W-135) diphtheria toxoid conjugate vaccine (MCV4P) [facility] 03-07-2017 tuberculin skin test ; purified protein derivative solution, intradermal [facility] 02-26-2017 tetanus toxoid, redu juve diphtheria toxoid, and acellular pertussis vaccine, adsorbed [facility] 02-26-2017 tuberculin skin test ; purified protein derivative solution, intradermal [place], [place] 08-13-2014 Human Papillomavirus 9-valent vaccine [place] 04-01-2014 meningococcal polysaccharide (groups A, C, Y and W-135) diphtheria toxoid conjugate vaccine (MCV4P) [place] 02-10-2014 Human Papillomavirus 9-valent vaccine [place] Payers Date Payer Category Payer Private Health Insurance [employer] [id number] 2022 Unknown [employer] [id number] 2022-Present [address] [place] [address] [id number] 2022 Unknown [id number] 2021 Unknown [id number] 2016 Private Health Insurance SHIV FIERRO [id number] 2016-Present [phone] [address] [place] [address] [id number] 1995 Unknown [id number] [id number]. 175 1995 Unknown [id number] 2.16.840.1.173111.3.579.2. 593 1995 Unknown [id number] 2.16.840.1.670798.3.579.2. 1286 1995 Unknown [id number] 2.16.840.1.401751.3.579.2. 1259 1995 Unknown [id number] 2.16.840.1.960705.3.579.2. 9 1995 Unknown [id number] 2.16.840.1.558117.3.579.2. 1259 1995 Unknown [id number] 2.16.840.1.950871.3.579.2. 1259 1995 Unknown [id number] 2.16.840.1.550868.3.579.2. 1259 1995 Unknown [id number] 2.16.840.1.569872.3.579.2. 9 1995 Unknown [id number] 2.16.840.1.113675.3.579.2. 1259 1995 Unknown [id number] 2.16.840.1.580873.3.579.2. 1259 1995 Unknown [id number] 2.16.840.1.363203.3.579.2. 1259 1995 Unknown [id number] 2.16.840.1.090900.3.579.2. 1259 1959 Unknown [id number] Social History Date Type Detail Facility Start: 03-18-2020 End: 01-17-2024 Tobacco smoking status [facility] Never smoker [facility] Start: 03-18-2020 End: 01-17-2024 Tobacco use and exposure Never used [employer] Start: 02-05-2017 Alcohol Comment rarely [employer] Sex Assigned At Not on file [employer] [facility] Start: 1995 Sex Assigned At Female [employer] Work Phone: Start: 04-17-2024 End: 06-19-2024 Alcoholic beverage intake Ex-drinker (finding) [facility] Start: 01-17-2024 End: 04-17-2024 Alcoholic beverage intake [facility] Start: 01-17-2024 Tobacco use panel [facility] Start: 11-04-2023 [facility] Start: 02-20-2023 Gender identity Identifies as female gender (finding) [facility] Start: 02-20-2023 Sexual orientation Heterosexual (finding) [facility] Medical Equipment Procedure Code Equipment Code Equipment Original Text Equipment Identifier Dates Inject 1 each un flory the skin See administration instructions Use four times daily with insulin pen. [id number] Start: 05-26-2024 End: 06-25-2024 History of Present [...] nursing note reviewed. Exam conducted with a supply crib attendant present. Vitals: Estimated body mass index is [...] nursing note reviewed. Exam conducted with a supply crib attendant present. Vitals: Estimated body mass index is [...] nursing note reviewed. Exam conducted with a supply crib attendant present. Vitals: Estimated body mass index is [...] of: BJ Garcia documented in this encounter [facility] Evaluation note Note Date [...] of control unspecified documented in this encounter [facility] Evaluation note Note Date & Type Note Facility Evaluation note Diagnosis 32 weeks gestation of Third trimester state, incidental documented in this encounter [facility] Evaluation note Note Date & Type Note Facility Evaluation note Diagnosis Third trimester state, incidental 34 weeks gestation of documented in this encounter [facility] Summary Purpose Family History No Family History Records FoundNo Family History Records FoundNo Family History Records FoundNo Family History Records FoundNo Family History Records FoundNo Family History Records Found Advance Directives No Advanced Directives Records FoundDocuments on File Type Date Recorded Patient Marketing Performance Analyst Expl anation ACP-Advance Directive 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 dical Specialists EPIC Care Teams (unrecognized sec tion and content) [employer] Relationship Specialty [place] [address] [place] [address] PCP - General Family Medicine 03/22/23 [employer] Relationship Specialty [place] [address] [place] [address] PCP - General Family Medicine 03/22/23 [employer] Relationship Specialty [place] [address] [place] [address] PCP - General Family Medicine 03/22/23 Suri Canales PA [address] [place] [address] [place] [address] PCP - Medical [place] [employer] 07/30/22 07/29/99 [employer] Relationship Specialty [place] [address] [place] [address] PCP - General Family Medicine 03/22/23 Suri Canales PA [address] [place] [address] [place] [address] PCP - Medical [place] [employer] 07/30/22 07/29/99 [employer] Relationship Specialty [place] [address] [place] [address] PCP - General Family Medicine 03/22/23 Suri Canales [place] [facility] [place] [address] PCP - Medical [place] [employer] 07/30/22 07/29/99 [employer] Relationship Specialty [place] [address] [place] [address] PCP - General Family Medicine 03/22/23 Suri Canales PA [facility] [place], [facility] PCP - Medical [place] [employer] 07/30/22 07/29/99 [employer] Relationship Specialty Start [place] [address] [place] [address] PCP - General Family Medicine 03/22/23 Suri Canales PA [address] [place], [place] [address]sujey [place], [facility] PCP - Medical [place] [employer] 07/30/22 07/29/99 [employer] Relationship Specialty Start [place] [address] [place] [address] PCP - General Family Medicine 03/22/23 Suri Canales [place] [facility] [place] [address] (work) PCP - Medical [employer] [place] [employer] 07/30/22 07/29/99 Reason for Visit (unrecogniz [...] BE BASED ON THE PRIMARY CLINICAL RECORDS. [employer] [facility]. provides no warranty or guarantee of the accuracy or completeness of information in this document.
--- NOTE | 2024-06-25 08:49 | US_ITS ---
[address] [address] Patient Name: ZAKIA SEARS MRN: [facility]:[id number] date: 1995 Sex: F Assigned Patient [facility] Current Patient Location: [facility] Accession/Order Number: [id number] Exam Date: 06/25/2024 09:00 Report Date: 06/26/2024 06:03 At the request of: JASIEL RAMOS Procedure: US OB BPP w non-stress EXAMINATION: US OB BPP w non-stress HISTORY:Gestational diabetes mellitus COMPARISON: Ultrasound OB biophysical 06/19/2024 TECHNIQUE: Ultrasound biophysical profile was performed in the radiology department. BREATHING MOVEMENTS: 2 GROSS BODY MOVEMENTS: 2 TONE: 2 QUALITATIVE AMNIOTIC FLUID VOLUME: 2 PRESENTATION: CEPHALIC HEART RATE: 139.18 bpm AMNIOTIC FLUID VOLUME: 13.43 cm GESTATIONAL AGE: 35 weeks 3 days US/US OB BPP w non-stress IMPRESSION: Total biophysical profile score: 8 Electronically authenticated by: MARIAM GARCIA Date: 06/26/2024 06:03
[2024-06-25 09:13] VITALS: BP 110/68; PULSE 92
== END 2024-06-25 09:44 | disposition home or self-care (01) ==
LOC: US 07:21 → FBC 08:48
PROVIDERS: Visit Provider Obstetrics & Gynecology
DX: O24.419 Gestational diabetes mellitus in pregnancy, unspecified control (principal); Z3A.35 35 weeks gestation of pregnancy
CPT/HCPCS: 76818

== ENCOUNTER 2024-06-30 06:35 | Outpatient (OUT) | payer OTHER, SELFPAY ==
--- OUTSIDE RECORDS SUMMARY | 2024-06-30 06:39 | XMS_ITS | CCD ---
Author Organization [facility] Care Team Providers Care Production Support Developer Name Role Phone Shantelle Dean Primary Care Provider JIMMY MEEHAN Referring Unavailable SHANTELLE DEAN Primary Care Unavailable SHANTELLE DEAN Referring Unavailable SHANTELLE DEAN Primary Care Unavailable MISC, DR BELLAMY Primary Care Unavailable DESHAUN, DR [...] UA Negative Negative - 4(70) +++ mg/dL [facility] Blood, UA Negative Negative - 50 Bib/mcL [facility] Clarity, UA Clear [facility] Color, UA Yellow [facility] Glucose, UA Negative Negative - 1999(110) ++++ mg/dL [facility] Interpretation and review of laboratory results Abnormal [facility] Ketones, UA Negative Negative - 160(16) ++++ mg/dL [facility] Leukocytes, UA Trace Negative - 500+++ Alvaro/mcL [facility] Nitrite, UA Negative Negative - Positive [facility] pH, UA 7 5 - 9 [facility] Protein, UA Negative Negative - 1999(20) ++++ mg/dL [facility] Spec Grav, UA 1.015 1 - 1.03 [facility] care Urobilinogen, UA 0.2 0.2 - 12 mg/dL [facility] Urinalysis macro (dipstick) panel (U)on 05-22-2024 Bilirubin, UA Negative Negative - 4(70) +++ mg/dL [facility] Blood, UA Negative Negative - 50 Bib/mcL [facility] Clarity, UA Clear [facility] Color, UA Yellow [facility] Glucose, UA Negative Negative - 1999(110) ++++ mg/dL [facility] Interpretation and review of laboratory results Abnormal [facility] Ketones, UA Negative Negative - 160(16) ++++ mg/dL [facility] Leukocytes, UA Positive Negative - 500+++ Alvaro/mcL [facility] Comment on above: small Nitrite, UA Negative Negative - Positive [facility] pH, UA 7 5 - 9 [facility] Protein, UA Negative Negative - 1999(20) ++++ mg/dL [facility] Spec Grav, UA 1.015 1 - 1.03 [facility] Urobilinogen, UA 0.2 0.2 - 12 mg/dL [facility]inal[facility] macro (dipstick) panel (U)on 05-08-2024 Bilirubin, UA Negative Negative - 4(70) +++ mg/dL [facility] Blood, UA Negative Negative - 50 Bib/mcL [facility] Clarity, UA Clear [facility] re Color, UA Yellow [facility] e Glucose, UA Negative Negative - 1999(110) ++++ mg/dL [facility] Interpretation and review of laboratory results Abnormal [facility] Ketones, UA Negative Negative - 160(16) ++++ mg/dL [facility] Leukocytes, UA Positive Negative - 500+++ Alvaro/mcL [facility] Comment on above: small Nitrite, UA Negative Negative - Positive [facility] pH, UA 7.0 5 - 9 [facility] Protein, UA Negative Negative - 1999(20) ++++ mg/dL [facility] Spec Grav, UA 1.020 1 - 1.03 [facility] Urobilinogen, UA 0.2 0.2 - 12 mg/dL [facility] GLUCOSE TOLERANCE 3 HOURon 1 GLUCOSE TOLERANCE 3 HOUR High mg/dL [facility] Comment on above: GLU FAST 97H (<95) C ol: 05/01/24 0722 GLU 1HR 173 (<180) Col: 05/01/24 0823 GLU 2HR 162H (<155) Col: 05/01/24 0924 GLU 3HR 114 (<140) Col: 05/01/24 1022 Interpretation and review of laboratory results Abnormal [facility] PAP ACOG PANEL 2: 21 to 29on 08-25-[address] [facility] Comment on above: Performed By: #### 4 [id number] #### [facility] [address] [address] [address] Matias Shukla Age Gdln ACOG Testing - Normal [facility] Comment on above: Performed By: #### 4 [id number] #### [facility] [address] [place], [place] [address] Dr. Matias Shukla DIAGNOSIS: Comment Normal [facility] Comment on above: Result Comment: NEGA TIVE FOR INTRAEPITHELIAL LESION OR MALIGNANCY. Performed By: #### 4 [id number] #### [facility] [address] [place] [address] Dr. Matias Shukla Methodology: Comment [facility] Comment on above: Result Comment: This liquid based ThinPrep(R) pap test was screened with the use of an image guided system. Performed By: #### 4 [id number] #### [facility] [address] [place] [address] Dr. Matias Shukla Note: Comment Normal [facility] Comment on above: Result Comment: The Pap smear is a screening test designed to aid in the detection of premalignant and malignant conditions of the uterine cervix. It is not a diagnostic procedure and should not be used as the sole means of detecting cervical cancer. Both false-positive and false-negative reports do occur. . Performed By: #### 4 [id number] #### [facility] [address] [place] [address] Dr. Matias Shukla Performed by: Comment Normal [facility] Comment on above: Result Comment: Monika Prieto, Street Light Repairer Helper (ASCP) Performed By: #### 4 [id number] #### [facility] [address] [place] [address] Dr. Matias Shukla Reflex Criteria: Comment [facility] Comment on above: Result Comment: The HPV DNA reflex criteria were not met with this specimen result therefore, no HPV testing was performed. . Performed By: #### 4 [id number] #### [facility] [address] [place] [address] Dr. Matias Shukla Specimen adequacy: Comment Normal [facility] Comment on above: Result Comment: Sati sfactory for evaluation. Endocervical and/or squamous metaplastic cells (endocervical component) are present. Performed By: #### 4 [id number] #### [facility] [address] [place] [address] Dr. Matias Shukla MUMPS IGG BLDon 02-07-2022 MUMPS IGG 1.14 Normal [facility] Comment on above: Result Comment: RAN IN TRIPLICATE NORMAL RANGES: < OR = 0.9O NEGATIVE ; NO DETECTABLE IgG ANTIBODY TO MUMPS 0.91 - 1.09 EQUIVOCAL; REPEAT TESTING SUGGESTED > OR = 1.10 POSITIVE ; INDICATES PRESENCE OF DETECTABLE IgG ANTIBODY TO MUMPS Performed By: #### 1 0055, [id number], [id number], [id number] #### [facility] [address] RUBELLAon 02-07-2022 RUBELLA 1.73 Normal [facility] Comment on above: Result Comment: NORM AL RANGES: < OR = 0.9O NEGATIVE ; NO DETECTABLE IgG ANTIBODY TO RUBELLA 0.91 - 1.09 EQUIVOCAL; REPEAT TESTING SUGGESTED > OR = 1.10 POSITIVE ; INDICATES PRESENCE OF DETECTABLE IgG ANTIBODY TO RUBELLA VIRUS Performed By: #### 1 0055, 60248, [id number], [id number] #### [facility] [address] RUBEOLA MEASLES IGGon 2021 RUBEO IGG 4.62 Normal [facility] Comment on above: Result Comment: NORM AL RANGES: < OR = 0.9O NEGATIVE ; NO DETECTABLE IgG ANTIBODY TO RUBEOLA 0.91 - 1.09 EQUIVOCAL; REPEAT TESTING SUGGESTED > OR = 1.10 POSITIVE ; INDICATES PRESENCE OF DETECTABLE IgG ANTIBODY TO RUBEOLA Performed By: #### 1 0055, [id number], 43851, 00807 #### [facility] [address] TB QUANTIFERON PLUSon 2021 MITOGEN MINUS NIL 8.15 IU/mL Normal [facility] Comment on above: Performed By: #### 3 1592 #### [facility] [address] NIL 0.03 IU/mL Normal [facility] Comment on above: Performed By: #### 3 1592 #### [facility] [address] TB QUANTIFERON Negative Normal NEGATIVE [facility] Comment on above: Result Comment: Eric tiferon TB Gold Interpretation (IU/mL): NEGATIVE: M. tuberculosis infection not likely. Nil: <=8.0 TB1 Antigen minus Nil ([id number]): <0.35 OR >=0.35; and <25% of Nil value. TB2 Antigen minus Nil ([id number]): <0.35 OR >=0.35; and <25% of Nil [...] (https://www.cdc.gov/tb/publications/guidlines/default.htm Performed By: #### 3 1592 #### [facility] [address] [place] [address], [facility] TB1 AG 0.03 IU/mL Normal [facility] Comment on above: Performed By: #### 3 1592 #### [facility] [address] [place] [address], [facility] TB1 AG MINUS NIL 0.00 IU/mL Normal [facility] Comment on above: Performed By: #### 3 1592 #### [facility] [address] [place] [address], [facility] TB2 AG 0.04 IU/mL Normal [facility] Comment on above: Performed By: #### 3 1592 #### [facility] [address] [place] [address], [facility] TB2 AG MINUS NIL 0.01 IU/mL Normal [facility] Comment on above: Performed By: #### 3 1592 #### [facility] [address] [place] [address], [facility] VARICELLA ZOSTER IGGon 02-07 VARICELLA IGG 2.60 Normal [facility] Comment on above: Result Comment: NORM AL RANGES: < OR = 0.9O NEGATIVE ; NO DETECTABLE IgG ANTIBODY TO VARICELLA-ZOSTER VIRUS 0.91 - 1.09 EQUIVOCAL; REPEAT TESTING SUGGESTED > OR = 1.10 POSITIVE ; INDICATES PRESENCE OF DETECTABLE IgG ANTIBODY TO VARICELLA-ZOSTER VIRUS Performed By: #### 1 0055, 61703, 69704, 07691 #### [facility] Esha WIGGINS. [address] HPV DNA High Riskon 08-19-19 22 HPV Interp [facility] Comment on above: Result Comment: [...] purposes. Performed By: #### H PVH #### [address] [address] Industrial Engineering Analyst: Rickey Watson MD HPV Type 16 Not detected [facility] Comment on above: Performed By: #### H PVH #### [address] [address] Industrial Engineering Analyst: Rickey Watson MD HPV Type 18 Not detected [facility] Comment on above: Performed By: #### H PVH #### [facility] [employer] [address] [place] [address] Industrial Engineering Analyst: Rickey Watson MD Other High Risk HPV Not detected [facility] Comment on above: Performed By: #### H PVH #### [facility] [address] [place] [address] Industrial Engineering Analyst: Rickey Watson MD HPV DNA High Riskon 08-18-19 Source .GENITAL - NOT SPECIFIED Normal [facility] Comment on above: Performed By: #### H PVH #### [address] [address] Industrial Engineering Analyst: Rickey Watson MD HPV Sample .THIN PREP Normal [facility] Comment on above: Performed By: #### H PVH #### [address] [address] Industrial Engineering Analyst: Rickey Watson MD Chlamydia/GC DNA, TPon 08-10 Chlamydia Probe, TP Negative Normal NEG [facility] Comment on above: Result Comment: CHLA MYDIA [...] target. Performed By: #### C YTCGP #### [address] [address] Industrial Engineering Analyst: Rickey Watson MD Gonorrhea Probe, TP Negative Normal NEG [facility] Comment on above: Result Comment: NEIS SERIA [...] target. Performed By: #### C YTCGP #### [address] [address] Industrial Engineering Analyst: Rickey Watson MD Cytologyon 08-08-2021 Cytology (NOTE) INTERPRETATION Cervical material, (ThinPrep vial, Imaging-assisted review): Specimen Adequacy: Satisfactory for evaluation. - Endocervical/transfor mation zone component present. - Scant cellularity. Descriptive Diagnosis: Atypical squamous cells of undetermined significance (ASC-US). Street Light Repairer Helper: AMANDA Michaels M.D. Electronically Signed Out rdd/08/18/2021 Amendments Originally Reported As: Procedure/Addendum Source: Clinical History LMP: Patient Name: Med Rec: Path Number: Fax: Normal [facility] Comment on above: Performed By: #### P PPVP #### [address] [id number] Industrial Engineering Analyst: Rickey Watson MD QuantiFERON TBon 12-24-2020 Quanti Binu minus NIL 8.10 IU/mL [facility] Comment on above: Performed By: #### R UBI, LUIZ, MARITZA, VZI #### [facility] [employer] [address] [place] [id number] Industrial Engineering Analyst: Rickey Watson MD #### AQF #### [facility] [address] [place] [address] Industrial Engineering Analyst: Mark Grossman MD Quanti TB Gold Plus Negative Normal Negative [facility] Comment on above: Result Comment: (NOT E) [...] Mycobacterium tuberculosis Infection --- [place], 2010 (http://www.cdc.gov/mmwr/preview/mmwrhtml/if6723e0.htm), for more information concerning test performance in low-prevalence populations and use in occupational screening. Performed By: #### R LUIZ MCKEON, MARITZA, VZI #### [facility] [address] [place], [place] [id number] Industrial Engineering Analyst: Rickey Watson MD #### AQF #### [employer] [address] [place] [address] Industrial Engineering Analyst: Mark Grossman MD Quanti TB1 minus NIL 0.00 IU/mL Normal 0.00-0.34 [facility] Comment on above: Performed By: #### R LUIZ MCKEON, MARITZA, VZI #### [facility] [address] [place], [place] [id number] Industrial Engineering Analyst: Rickey Watson MD #### AQF #### [facility] [employer] [address] [place] [address] Industrial Engineering Analyst: Mark Grossman MD Quanti TB2 minus NIL 0.01 IU/mL Normal 0.00-0.34 [facility] Comment on above: Performed By: #### R LUIZ MCKEON, MARITZA, VZI #### [facility] [address] [place] [address] Industrial Engineering Analyst: Rickey Watson MD #### AQF #### [facility] [employer] [address] [place] [address] Industrial Engineering Analyst: Mark Grossman MD QuantiFERON NIL 0.01 IU/mL Normal [facility] Comment on above: Result Comment: (NOT E) Performed By: [employer] [address] [place] [address] Business Process Specialist: Carolyn Wei MD Performed By: #### R UBI, LUIZ, MARITZA, VZI #### [address] [id number] Industrial Engineering Analyst: Rickey Watson MD #### AQF #### [address] [id number] Industrial Engineering Analyst: Mark Grossman MD Measles (Rubeola) Imon 12-22 Measles (Rubeola) Im 3.68 Normal >1.09 [facility] Comment on above: Result Comment: Interpretation: IMMUNE Reference Range: <0.91 Not Immune 0.91-1.09 Equivocal >1.09 Immune Performed By: #### R UBI, LUIZ, MARITZA, VZI #### [address] [phone] Industrial Engineering Analyst: Rickey Watson MD #### AQF #### [address] [id number] Industrial Engineering Analyst: Mark Grossman MD Mumps,Immun,Abon 12-22-2020 Mumps,Immun,Ab 1.16 Normal >1.09 [facility] Comment on above: Result Comment: Interpretation: IMMUNE Reference Range: <0.91 Not Immune 0.91-1.09 Equivocal >1.09 Immune Performed By: #### R UBI, LUIZ, MARITZA, VZI #### [place] [address] Industrial Engineering Analyst: Rickey Watson MD #### AQF #### [address] [id number] Industrial Engineering Analyst: Mark Grossman MD VZ Immunityon 12-22-2020 VZ Immunity 2.24 Normal >1.09 [facility] Comment on above: Result Comment: Interpretation: IMMUNE Reference Range: <0.91 Not Immune 0.91-1.09 Equivocal >1.09 Immune Performed By: #### R UBI, LUIZ, MARITZA, VZI #### [address] [place], [place] [id number] Industrial Engineering Analyst: Rickey Watson MD #### AQF #### [facility] [address] [place] [address] Industrial Engineering Analyst: Mark Grossman MD Rubella Ab, IgGon 12-21-2020 Rubella Ab, IgG 16.2 IU/mL Normal [facility] Comment on above: Result Comment: REFERENCE RANGE: <5.0 NON-REACTIVE (non-immune) 5.0 TO 9.9 EQUIVOCAL >=10.0 REACTIVE (immune) Performed By: #### R UBI, LUIZ, MARITZA, VZI #### [facility] [employer] [address] [place] [address] [id number] Industrial Engineering Analyst: Rickey Watson MD #### AQF #### [facility] [address] [place] [address] Industrial Engineering Analyst: Mark Grossman MD Rubella antibody, IgGOrdered By: Jimmy Meehan on 12-21-2020 Rubella virus IgG Ql (S) 16.2 IU/mL [facility] Phone: Comment on above: REFERENCE RANGE: <5.0 NON-REACTIVE (non-immune) 5.0 TO 9.9 EQUIVOCAL >=10.0 REACTIVE (immune) [employer] Phone: Lab - Toxicology Resultson 0 03-11-2020 Lab - Toxicology Results [id number] Normal [facility] QuantiFERON TB Gold (In Tube ) LCon 03-08-2020 QuantiFERON Criteria LC Comment [facility] Comment on above: Result Comment: The QuantiFERON-TB Gold Plus result is determined by subtracting the Nil value from either TB antigen (Ag) tube. The mitogen tube serves as a control for the test. Performed By: #### 4 [id number], [id number] #### [facility] (DEFAULT) [address] [place] [address] QuantiFERON M. tuberculosis1 Ag Value LC 0.09 IU/mL [facility] Comment on above: Performed By: #### 4 [id number], [id number] #### [facility] (DEFAULT) [address] [place] [address] QuantiFERON M. tuberculosis2 Ag Value LC 0.08 IU/mL [facility] Comment on above: Performed By: #### 4 [id number] #### [facility] (DEFAULT) [address] [place] [address] QuantiFERON Mitogen Value LC >10.00 [facility] Comment on above: Result Comment: Perf ormed At: [address] [id number] Kat Arevalo PhD Ph:[phone] Performed By: #### 4 [id number], [id number] #### [facility] (DEFAULT) [address] [place] [address] QuantiFERON Nil Value LC 0.01 IU/mL [facility] Comment on above: Performed By: #### 4 [id number], [id number] #### [facility] (DEFAULT) [address] [place] [address] QuantiFERON-TB Gold Plus LCo n 03-08-2020 QuantiFERON-TB Gold Plus LC Negative Negative [facility] Comment on above: Result Comment: Perf ormed At: [address] [id number] Kat Arevalo PhD Ph:[phone] Performed By: #### 4 [id number], [id number] #### [facility] (DEFAULT) [address] [place] [address] QuantiFERON Incubation LC Incubation performed. [facility] Comment on above: Result Comment: Perf ormed At: [address] [id number] Kat Arevalo PhD Ph:[phone] Performed By: #### 4 [id number], [id number] #### [facility] (DEFAULT) [address] [place] [address] HBSab Qnt LCon 03-05-2020 Hep B Surf Ab Quant LC 145.6 mIU/mL Immunity>9.9 [facility] Comment on above: Result Comment: Stat us of Immunity Anti-HBs Level Inconsistent with Immunity 0.0 - 9.9 Consistent with Immunity >9.9 Performed At: [facility] [address] [place], [place] [id number] Kat Arevalo PhD Ph:[phone] Performed By: #### 1 [id number], [id number] #### [facility] (DEFAULT) [address] [place] [address] Measles/Mumps/Rubella Immuni ty on 03-05-2020 Mumps Abs, IgG LC 69.5 AU/mL Immune >10.9 [facility] Comment on above: Result Comment: Nega tive <9.0 Equivocal 9.0 - 10.9 Positive >10.9 A positive result generally indicates past exposure to Mumps virus or previous vaccination. Performed At: [facility] [address] [place] [id number] Kat Arevalo PhD Ph:[phone] Performed By: #### 1 [id number], [id number] #### [facility] (DEFAULT) [address] [place] [address] Rubella Antibodies, IgG LC 1.75 index Immune >0.99 [facility] Comment on above: Result Comment: Non- immune <0.90 Equivocal 0.90 - 0.99 Immune >0.99 Performed By: #### 1 [id number], [id number] #### [facility] (DEFAULT) [address] [place] [address] Rubeola Ab, IgG, EIA LC >300.0 Immune >16.4 [facility] Comment on above: Result Comment: Nega tive <13.5 Equivocal 13.5 - 16.4 Positive >16.4 Presence of antibodies to Rubeola is presumptive evidence of immunity except when acute infection is suspected. Performed By: #### 1 [id number], [id number] #### [facility] (DEFAULT) [address] [place] [address] Nicotine Metabolite, Urine L Con 03-05-2020 Cotinine LC Negative [id number] [facility] Comment on above: Result Comment: Perf ormed At: [facility] [address] [place], [place] [id number] Jose Schwartz PhD Ph:[phone] Performed By: #### 1 [id number] #### [facility] (DEFAULT) [address] [place] [address] Vital Signs Date Time Vital Sign Value Performing Clinician Faci lity 06-19-2024 10:40-0500 Body mass index (BMI) [Ratio] 40.02 kg/m2 Suri Parker PA Work Phone: [facility] 06-19-2024 10:40-0500 Body weight 99.25 kg Suri Parker PA Work Phone: [facility] 06-19-2024 10:40-0500 Diastolic blood pressure 74 mm[Hg] Suri Parker PA Work Phone: [facility] 06-19-2024 10:40-0500 Systolic blood pressure 110 mm[Hg] Suri Pyrites PA Work Phone: [facility] 06-05-2024 11:46-0500 Body mass index (BMI) [Ratio] 39.69 kg/m2 Suri Pyrites PA Work Phone: [facility] 06-05-2024 11:46-0500 Body weight 98.43 kg Suri Parker PA Work Phone: [facility] 06-05-2024 11:46-0500 Diastolic blood pressure 80 mm[Hg] Suri Parker PA Work Phone: [facility] 06-05-2024 11:46-0500 Systolic blood pressure 114 mm[Hg] Suri Pyrites PA Work Phone: [facility] 05-22-2024 09:57-0400 Body mass index (BMI) [Ratio] 39.1 kg/m2 Jasiel Meade DO Work Phone: [facility] 05-22-2024 09:57-0400 Body weight 96.98 kg Jasiel Deshaun DO Work Phone: [facility] 05-22-2024 09:57-0400 Diastolic blood pressure 72 mm[Hg] Jasiel Deshaun DO Work Phone: [facility] 05-22-2024 09:57-0400 Systolic blood pressure 110 mm[Hg] Jasiel Deshaun DO Work Phone: [facility] 05-08-2024 09:31-0400 Body mass index (BMI) [Ratio] 38.59 kg/m2 Suri LORENZO Work Phone: [facility] 05-08-2024 09:31-0400 Body weight 95.71 kg Suri LORENZO Work Phone: [facility] 05-08-2024 09:31-0400 Diastolic blood pressure 78 mm[Hg] Suri LORENZO Work Phone: [facility] 05-08-2024 09:31-0400 Systolic blood pressure 120 mm[Hg] Suri LORENZO Work Phone: [facility] Healthcare Encounters Encounter Date Encounter Type Care Provider Facility Start: 06-19-2024 End: 06-19-2024 Bamboo flowsheet Suri LORENOZ Work Phone: [facility] Start: 06-19-2024 End: 06-19-2024 Bamboo flowsheet Suri LORENZO Work Phone: [facility] Start: 06-19-2024 End: 06-19-2024 flow sheet Suri LORENZO Work Phone: [facility] Comment on above: Third trimester preg jeffrey; 34 weeks gestation of Start: 06-19-2024 End: 06-19-2024 ambulatory SURI CANALES Not Available Start: 06-05-2024 End: 06-05-2024 Bamboo flowsheet Suri LORENZO Work Phone: [facility] Start: 06-05-2024 End: 06-05-2024 Bamboo flowsheet Suri LORENZO Work Phone: [facility] Start: 06-05-2024 End: 06-05-2024 flow sheet Suri LORENZO Work Phone: [facility] Comment on above: 32 weeks gestation o f ; Third trimester Start: 06-05-2024 End: 06-05-2024 ambulatory SURI CANALES Not Available Start: 05-22-2024 End: 05-22-2024 Bamboo flowsheet Jasiel Deshaun DO Work Phone: [facility] Start: 05-22-2024 End: 05-22-2024 Bamboo flowsheet Jasiel Deshaun DO Work Phone: [facility] Start: 05-22-2024 End: 05-22-2024 flow sheet Jasiel Deshaun DO Work Phone: [facility] Comment on above: 30 weeks gestation o f ; Third trimester ; Gestational diabetes mellitus (GDM), antepartum, gestational diabetes method of control unspecified Start: 05-22-2024 End: 05-22-2024 ambulatory JASIEL DESHAUN Not Available Start: 05-08-2024 End: 05-08-2024 Bamboo flowsheet Suri LORENZO Work Phone: [facility] Start: 05-08-2024 End: 05-08-2024 Bamboo flowsheet Suri LORENZO Work Phone: [facility] Start: 05-08-2024 End: 05-08-2024 flow sheet Suri LORENZO Work Phone: [facility] Comment on above: 28 weeks gestation o f ; Third trimester ; size inconsistent with dates Start: 05-08-2024 End: 05-08-2024 ambulatory SURI CANALES Not Available Start: 05-01-2024 End: 05-01-2024 Clinisync Result Encounter Jasiel Deshaun DO Work Phone: [facility] External Department Unsolicited Start: 05-01-2024 End: 05-01-2024 Clinisync Result Encounter Jasiel Deshaun DO Work Phone: [facility] External Department Unsolicited Start: 04-17-2024 End: 04-17-2024 ambulatory JASIEL DESHAUN Not Available Start: 04-10-2024 End: 04-10-2024 ambulatory JASIEL R DESHAUN [facility] Start: 03-13-2024 End: 03-13-2024 ambulatory SURI CANALES Not Available Start: 02-13-2024 End: 02-13-2024 ambulatory JASIEL DESHAUN Not Available Start: 01-17-2024 End: 01-17-2024 ambulatory SURI PARKER Not Available Start: 08-22-2023 End: 08-22-2023 ambulatory JASIEL DESHAUN Not Available Start: 07-04-2023 End: 07-04-2023 ambulatory JASIEL DESHAUN Not Available Start: 08-21-2022 End: 08-21-[address] [place] [facility] Start: 08-08-2021 End: 08-09-2021 ambulatory SHANTELLE HDEZ [facility] Start: 12-21-2020 End: 12-22-2020 [facility] Start: 12-21-2020 End: 12-21-2020 Subsequent hospital [...] Phone: Start: 05-01-2024 GLUCOSE TOLERANCE 3 HOUR Ajsiel Deshaun DO Work Phone: Start: 12-21-2020 Antibody rubella Ebony Meehan MD Work Phone: Plan of Treatment Date Care Activity Detail Author Start: 02-26-2027 DTaP/Tdap/Td vaccine (7 - Td) DTaP/Tdap/Td vaccine (7 - Td) [place], [place] Start: 10-23-2024 End: 10-23-2024 Patient encounter procedure 10/23/2024 10:20 AM EDT Office Visit [facility] [address] [place] [id number] Jasiel Meade, DO [address], [place] [id number] [facility] Start: 08-25-2024 End: 08-25-2024 Patient encounter procedure 08/25/2024 9:00 AM EST Office Visit [facility] [address] [place] [id number] Jasiel Meade, DO [address] [place] [address] [facility] Start: 07-03-2024 End: 07-03-2024 Patient encounter procedure 07/03/2024 10:40 AM EST Routine [facility] [address] [place] [id number] Jasiel Meade, DO [address] [place] [address] [facility] Start: 07-02-2024 End: 07-02-2024 Professional / ancillary services management 07/02/2024 2:00 PM EST Ancillary Procedure [facility] [address] [place] [address] [facility] Start: 06-19-2024 End: [...] control unspecified Expected: 05/22/2024 (Approximate), Expires: 05/22/2025 [facility] Comment on above: Expected: 05/22/2024 (Approximate), Expires: 05/22/2025 Start: 05-22-2024 End: 05-22-2025 US for US OB SCAN FOR GROWTH Imaging Routine Third trimester Gestational diabetes mellitus (GDM), antepartum, gestational diabetes method of control unspecified Expected: 05/22/2024 (Approximate), Expires: 05/22/2025 [facility] Work Phone: Comment on above: Expected: 05/22/2024 (Approximate), Expires: 05/22/2025 Start: 05-22-2024 End: 05-22-2024 Patient encounter procedure [facility] Comment on above: Arrived Start: 05-22-2024 End: 05-22-2024 Professional / ancillary services management 05/22/2024 9:00 AM EDT Ancillary Procedure [facility] [address] [place] [address] [place] [address] [facility] Start: 05-08-2024 End: 05-08-2025 US for US OB SCAN FOR GROWTH Imaging Routine size inconsistent with dates Expected: 05/08/2024 (Approximate), Expires: 05/08/2025 [facility] Work Phone: Comment on above: Expected: 05/08/2024 (Approximate), Expires: 05/08/2025 Start: 05-08-2024 End: 05-08-2024 Patient encounter procedure [facility] Comment on above: Arrived Start: 03-30-2024 Influenza vaccination Influenza Vacc ine (#1) [facility] Start: 03-18-2023 Screening for malign ant neoplasm of cervix Cervical cancer screen [employer] Work Phone: Start: 06-12-2021 Screening for malign ant neoplasm of cervix Cervical cancer screen [place], [place] Start: 03-30-2021 Influenza vaccination [facility]e [facility] Start: 03-30-2020 Influenza vaccination Flu vaccine (# 1) [place] Start: 06-12-2019 Screening for Chlamy flaco trachomatis Chlamydia screen [place], [place] Start: 09-13-2011 Hepatitis A vaccine (2 of 2 - 2-dose series) Hepatitis A vaccine (2 of 2 - 2-dose series) [place], [place] Start: 2007 COVID-19 Vaccine (1) COVID-19 Vaccin e (1) [employer] Phone: Start: 1995 Hepatitis C screening Hepatitis C sc reen [employer] [facility] Phone: End: 12-21-2020 Mumps Antibody, IgG Mumps Antibody, IgG Lab Routine Once for 1 Occurrences starting 12/21/2020 until 12/21/2020 [employer] Phone: Comment on above: Once for 1 Occurrenc es starting 12/21/2020 until 12/21/2020 Mumps Antibody, IgG Mumps Antibo dy, IgG Lab Routine 12/21/2020 4:27 PM EDT [employer] Phone: End: 12-21-2020 Quantiferon TB Gold Quantiferon TB Gold Microbiology Routine Once for 1 Occurrences starting 12/21/2020 until 12/21/2020 [employer] Phone: Comment on above: Once for 1 Occurrenc es starting 12/21/2020 until 12/21/2020 Quantiferon TB Gold Quantiferon TB Gold Microbiology Routine 12/21/2020 4:27 PM EDT [employer] Phone: End: 12-21-2020 Rubeola Antibody, IgG Rubeola Antibody, IgG Lab Routine Once for 1 Occurrences starting 12/21/2020 until 12/21/2020 [employer] Phone: Comment on above: Once for 1 Occurrenc es starting 12/21/2020 until 12/21/2020 Rubeola Antibody, IgG Rubeola An tibody, IgG Lab Routine 12/21/2020 4:27 PM EDT [employer] Phone: End: 12-21-2020 Varicella Zoster Antibody, IgG Varicella Zoster Antibody, IgG Lab Routine Once for 1 Occurrences starting 12/21/2020 until 12/21/2020 [employer] Phone: Comment on above: Once for 1 Occurrenc es starting 12/21/2020 until 12/21/2020 Varicella Zoster Antibody, IgG Varicella Zoster Antibody, IgG Lab Routine 12/21/2020 4:27 PM EDT [employer] Phone: Immunizations Immunization Date Immunization Notes Care Provider [facility] 06-28-2021 influenza virus vacc ine, unspecified formulation Jasiel Deshaun [employer] Work Phone: [facility] 03-09-2020 tuberculin skin test ; purified protein derivative solution, intradermal [facility] [place] 04-28-2019 influenza, injectabl e, quadrivalent, preservative free [facility] 06-12-2018 influenza, injectabl e, quadrivalent, preservative free [facility] 05-01-2018 tuberculin skin test ; purified protein derivative solution, intradermal [facility] 09-12-2017 hepatitis B vaccine, adult dosage [facility] 04-13-2017 Human Papillomavirus 9-valent vaccine [facility] 04-10-2017 hepatitis B vaccine, adult dosage [facility] 03-07-2017 hepatitis B vaccine, adult dosage [facility] 03-07-2017 meningococcal polysaccharide (groups A, C, Y and W-135) diphtheria toxoid conjugate vaccine (MCV4P) [facility] 03-07-2017 tuberculin skin test ; purified protein derivative solution, intradermal [facility] 02-26-2017 tetanus toxoid, redu juve diphtheria toxoid, and acellular pertussis vaccine, adsorbed [facility] 02-26-2017 tuberculin skin test ; purified protein derivative solution, intradermal [place], [place] 08-13-2014 Human Papillomavirus 9-valent vaccine [place] 04-01-2014 meningococcal polysaccharide (groups A, C, Y and W-135) diphtheria toxoid conjugate vaccine (MCV4P) [place] 02-10-2014 Human Papillomavirus 9-valent vaccine [place] Payers Date Payer Category Payer Private Health Insurance [employer] [id number] 2022 Unknown [employer] [id number] 2022-Present [address] [place] [address] [id number] 2022 Unknown [id number] 2021 Unknown [id number] 2016 Private Health Insurance SHIV FIERRO [id number] 2016-Present [phone] [address] [place] [address] [id number] 1995 Unknown [id number] [id number]. 175 1995 Unknown [id number] 2.16.840.1.470500.3.579.2. 593 1995 Unknown [id number] 2.16.840.1.744828.3.579.2. 1286 1995 Unknown [id number] 2.16.840.1.267307.3.579.2. 1259 1995 Unknown [id number] 2.16.840.1.828767.3.579.2. 9 1995 Unknown [id number] 2.16.840.1.329320.3.579.2. 1259 1995 Unknown [id number] 2.16.840.1.154373.3.579.2. 1259 1995 Unknown [id number] 2.16.840.1.839516.3.579.2. 1259 1995 Unknown [id number] 2.16.840.1.533482.3.579.2. 9 1995 Unknown [id number] 2.16.840.1.736923.3.579.2. 1259 1995 Unknown [id number] 2.16.840.1.436388.3.579.2. 1259 1995 Unknown [id number] 2.16.840.1.637963.3.579.2. 1259 1995 Unknown [id number] 2.16.840.1.762398.3.579.2. 1259 1959 Unknown [id number] Social History Date Type Detail Facility Start: 03-18-2020 End: 01-17-2024 Tobacco smoking status [facility] Never smoker [facility] Start: 03-18-2020 End: 01-17-2024 Tobacco use and exposure Never used [employer] Start: 02-05-2017 Alcohol Comment rarely [employer] Sex Assigned At Not on file [employer] [facility] Start: 1995 Sex Assigned At Female [employer] Work Phone: Start: 04-17-2024 End: 06-19-2024 Alcoholic beverage intake Ex-drinker (finding) [facility] Start: 01-17-2024 End: 04-17-2024 Alcoholic beverage intake [facility] Start: 01-17-2024 Tobacco use panel [facility] Start: 11-04-2023 [facility] Start: 02-20-2023 Gender identity Identifies as female gender (finding) [facility] Start: 02-20-2023 Sexual orientation Heterosexual (finding) [facility] Medical Equipment Procedure Code Equipment Code Equipment Original Text Equipment Identifier Dates Inject 1 each un flory the skin See administration instructions Use four times daily with insulin pen. [id number] Start: 05-26-2024 End: 06-25-2024 History of Present [...] nursing note reviewed. Exam conducted with a breakfast and room attendant present. Vitals: Estimated body mass index [...] nursing note reviewed. Exam conducted with a breakfast and room attendant present. Vitals: Estimated body mass index [...] of Onset Diabetes Father Preston Hypertension Father Prestno SURGICAL HISTORY Past Surgical History: Procedure Laterality [...] nursing note reviewed. Exam conducted with a breakfast and room attendant present. Vitals: Estimated body mass index [...] of: BJ Garcia documented in this encounter [facility] Healthcare Evaluation note Note Date & Type [...] of control unspecified documented in this encounter [facility] Healthcare Evaluation note Note Date & Type Note Facility Evaluation note Diagnosis 32 weeks gestation of Third trimester state, incidental documented in this encounter [facility] Healthcare Evaluation note Note Date & Type Note Facility Evaluation note Diagnosis Third trimester state, incidental 34 weeks gestation of documented in this encounter [facility] Healthcare Summary Purpose Family History No Family History Records FoundNo Family History Records FoundNo Family History Records FoundNo Family History Records FoundNo Family History Records FoundNo Family History Records Found Advance Directives No Advanced Directives Records FoundDocuments on File Type Date Recorded 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 ACP-Advance Directive 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 Additional Source Comments INFORMATION SOURCE (unrecogn ized section and content) DATE CREATED AUTHOR 03/12/2020 [facility] DATE CREATED AUTHOR AUTHOR'S ORGANIZ ATION 08/20/2021 [facility] DATE CREATED AUTHOR AUTHOR'S ORGANIZ ATION 02/18/2022 [facility] DATE CREATED AUTHOR AUTHOR'S ORGANIZ ATION 08/25/2022 [facility] DATE CREATED AUTHOR AUTHOR'S ORGANIZ ATION 04/12/2024 [facility] DATE CREATED AUTHOR AUTHOR'S ORGANIZ ATION 06/22/2024 [facility] dical Specialists [employer] Care Teams (unrecognized sec tion and content) Production Support Developer Relationship Specialty [place] [address] [place] [address] PCP - General Family Medicine 03/22/23 Production [employer] Developer Relationship Specialty [place] [address] [place] [address] PCP - General Family Medicine 03/22/23 Production Support Developer Relationship Specialty Start [place] [address] [place] [address] PCP - General Family Medicine 03/22/23 Suri Canales PA [address] [place] [address] [place] [address] PCP - Medical [employer] 07/30/22 07/29/99 Production Support Developer Relationship Specialty Start [place] [address] [place] [address] PCP - General Family Medicine 03/22/23 Suri Canales PA [address] [place] [address] [place] [address] PCP - Medical [employer] 07/30/22 07/29/99 Production Support Developer Relationship Specialty [place] [address] [place] [address] PCP - General Family Medicine 03/22/23 Suri Canales [place] [facility] [place] [address] PCP - Medical [employer] 07/30/22 07/29/99 Production Support Developer Relationship Specialty Start [place] [address] [place] [address] PCP - General Family Medicine 03/22/23 Suri Canales PA [facility] [address] [place], [facility] PCP - Medical [employer] 07/30/22 07/29/99 Production Support Developer Relationship Specialty Start [place] [address] [place] [address] PCP - General Family Medicine 03/22/23 Suri Canales PA [address] [place], [place] [address]sujey [place], [facility] PCP - Medical [employer] 07/30/22 07/29/99 Production Support Developer Relationship Specialty Start [place] [address] [place] [address] PCP - General Family Medicine 03/22/23 Suri Canales PA [facility] [place] [address] (work) PCP - Medical [employer] 07/30/22 07/29/99 Reason for Visit (unrecogniz [...] BE BASED ON THE PRIMARY CLINICAL RECORDS. [facility]. provides no warranty or guarantee of the accuracy or completeness of information in this document.
[2024-06-30 17:24] VITALS: BP 135/87; PULSE 96
== END 2024-06-30 18:00 | disposition home or self-care (01) ==
LOC: FBCO 06:35 → FBC 17:19
PROVIDERS: Visit Provider Obstetrics & Gynecology
DX: O24.419 Gestational diabetes mellitus in pregnancy, unspecified control (principal); Z3A.36 36 weeks gestation of pregnancy
CPT/HCPCS: 59025

== ENCOUNTER 2024-07-02 13:31 | Outpatient (OUT) | payer OTHER, SELFPAY ==
--- NOTE | 2024-07-02 13:46 | US_ITS ---
[address] [address] Patient Name: ZAKIA SEARS MRN: [id number] date: 1995 Sex: F Assigned Patient Location: [facility] Current Patient Location: [facility] Accession/Order Number: [id number] Exam Date: 07/02/2024 13:50 Report Date: 07/02/2024 15:24 At the request of: JASIEL RAMOS Procedure: US OB growth EXAMINATION: US OB growth HISTORY: Gestational Diabetes COMPARISON: No relevant comparison available. FINDINGS: Heart Rate: 142.11 bpm Amniotic Fluid Volume: 12.2 cm, largest fluid pocket 4.6 cm Number: 1 Position: Cephalic presentation, longitudinal lie BIOMETRY: BPD: 8.69 cm; 35 weeks 1 day; 23.20 % HC: 32.75 cm; 37 weeks 1 day; 38.80 % AC: 34.93 cm; 38 weeks 6 days; >97 % FL: 6.86 cm; 35 weeks 2 days; 17.90 % EFW: 3190.40 g; 77.90 %, 7 lbs. 1 oz. FL/AC: 19.63 FL/BPD: 78.94 HC/AC: 0.94 GESTATIONAL AGE: Age by EDC: 36 weeks 3 days VICTORINA by EDC: 2024-07-27 Age by US: 36 weeks 4 days VICTORINA by US: 2024-07-26 US/US OB growth IMPRESSION: Abdominal circumference greater than the 97th percentile, otherwise normal interval growth Electronically authenticated by: KAJAL MARINELLI Date: 07/02/2024 15:24
--- OUTSIDE RECORDS SUMMARY | 2024-07-02 13:55 | XMS_ITS | CCD ---
Author Organization [facility] Care Team Providers Care Nanotechnology Engineering Technologist Name Role Phone Shantelle Dean Primary Care Provider [phone] JIMMY MEEHAN Referring Unavailable SHANTELLE DEAN Primary [...] UA Negative Negative - 4(70) +++ mg/dL [facility] Healthcare Blood, UA Negative Negative - 50 Bib/mcL [facility] Clarity, UA Clear [facility] Color, UA Yellow [facility] Glucose, UA Negative Negative - 1999(110) ++++ mg/dL [facility] Interpretation and review of laboratory results Abnormal [facility] Ketones, UA Negative Negative - 160(16) ++++ mg/dL [facility] Leukocytes, UA Trace Negative - 500+++ Alvaro/mcL [facility] Healthcare Nitrite, UA Negative Negative - Positive [facility] pH, UA 7 5 - 9 [facility] Protein, UA Negative Negative - 1999(20) ++++ mg/dL [facility] Healthcare Spec Grav, UA 1.015 1 - 1.03 [facility] Urobilinogen, UA 0.2 0.2 - 12 mg/dL [facility] Urinalysis macro (dipstick) panel (U)on 05-22-2024 Bilirubin, UA Negative Negative - 4(70) +++ mg/dL [facility] Blood, UA Negative Negative - 50 Bib/mcL [facility] Clarity, UA Clear [facility] Color, UA Yellow [facility] Glucose, UA Negative Negative - 1999(110) ++++ mg/dL [facility] Interpretation and review of laboratory results Abnormal [facility] Healthcare Ketones, UA Negative Negative - 160(16) ++++ mg/dL [facility] Healthcare Leukocytes, UA Positive Negative - 500+++ Alvaro/mcL [facility] Comment on above: small Nitrite, UA Negative Negative - Positive [facility] Healthcare pH, UA 7 5 - 9 [facility] Protein, UA Negative Negative - 1999(20) ++++ mg/dL [facility] Healthcare Spec Grav, UA 1.015 1 - 1.03 [facility] Urobilinogen, UA 0.2 0.2 - 12 mg/dL [facility] macro (dipstick) panel (U)on 05-08-2024 Bilirubin, UA Negative Negative - 4(70) +++ mg/dL [facility] Blood, UA Negative Negative - 50 Bib/mcL [facility] Clarity, UA Clear [facility] re Color, UA Yellow [facility] e Glucose, UA Negative Negative - 1999(110) ++++ mg/dL [facility] Interpretation and review of laboratory results Abnormal [facility] Ketones, UA Negative Negative - 160(16) ++++ mg/dL [facility] Leukocytes, UA Positive Negative - 500+++ Alvaro/mcL [facility] Comment on above: small Nitrite, UA Negative Negative - Positive [facility] pH, UA 7.0 5 - 9 [facility] Protein, UA Negative Negative - 1999(20) ++++ mg/dL [facility] Spec Grav, UA 1.020 1 - 1.03 [facility] Urobilinogen, UA 0.2 0.2 - 12 mg/dL [facility] GLUCOSE TOLERANCE 3 HOURon 1 GLUCOSE TOLERANCE 3 HOUR High mg/dL [facility] Comment on above: GLU FAST 97H (<95) C ol: 05/01/24 0722 GLU 1HR 173 (<180) Col: 05/01/24 0823 GLU 2HR 162H (<155) Col: 05/01/24 0924 GLU 3HR 114 (<140) Col: 05/01/24 1022 Interpretation and review of laboratory results Abnormal [facility] PAP ACOG PANEL 2: 21 to 29on 08-25-2022 . . Normal [facility] Comment on above: Performed By: #### 4 [id number] #### [facility] [address] [address] [address] Matias Shukla Age Gdln ACOG Testing - Normal [facility] Comment on above: Performed By: #### 4 [id number] #### [facility] [address] [place], [place] [address] Dr. Matias Shukla DIAGNOSIS: Comment Normal [facility] Comment on above: Result Comment: NEGA TIVE FOR INTRAEPITHELIAL LESION OR MALIGNANCY. Performed By: #### 4 [id number] #### [facility] [address] [place] [address] Dr. Matias Shukla Methodology: Comment [facility] Comment on above: Result Comment: This liquid based ThinPrep(R) pap test was screened with the use of an image guided system. Performed By: #### 4 [id number] #### [facility] [address] [place] [address] Dr. Matias Shukla Note: Comment Normal [facility] Comment on above: Result Comment: The Pap smear is a screening test designed to aid in the detection of premalignant and malignant conditions of the uterine cervix. It is not a diagnostic procedure and should not be used as the sole means of detecting cervical cancer. Both false-positive and false-negative reports do occur. . Performed By: #### 4 [id number] #### [facility] [address] [place] [address] Dr. Matias Shukla Performed by: Comment Normal [facility] Comment on above: Result Comment: Monika Prieto, Broke Worker (ASCP) Performed By: #### 4 [id number] #### [facility] [address] [place] [address] Dr. Matias Shukla Reflex Criteria: Comment [facility] Comment on above: Result Comment: The HPV DNA reflex criteria were not met with this specimen result therefore, no HPV testing was performed. . Performed By: #### 4 [id number] #### [facility] [address] [place] [address] Dr. Matias Shukla Specimen adequacy: Comment Normal [facility] Comment on above: Result Comment: Sati sfactory for evaluation. Endocervical and/or squamous metaplastic cells (endocervical component) are present. Performed By: #### 4 [id number] #### [facility] [address] [place] [address] Dr. Matias Shukla MUMPS IGG BLDon 02-07-2022 MUMPS IGG 1.14 Normal [facility] Comment on above: Result Comment: RAN IN TRIPLICATE NORMAL RANGES: < OR = 0.9O NEGATIVE ; NO DETECTABLE IgG ANTIBODY TO MUMPS 0.91 - 1.09 EQUIVOCAL; REPEAT TESTING SUGGESTED > OR = 1.10 POSITIVE ; INDICATES PRESENCE OF DETECTABLE IgG ANTIBODY TO MUMPS Performed By: #### 1 0055, [id number], [id number], [id number] #### [facility] [address] RUBELLAon 02-07-2022 RUBELLA 1.73 Normal [facility] Comment on above: Result Comment: NORM AL RANGES: < OR = 0.9O NEGATIVE ; NO DETECTABLE IgG ANTIBODY TO RUBELLA 0.91 - 1.09 EQUIVOCAL; REPEAT TESTING SUGGESTED > OR = 1.10 POSITIVE ; INDICATES PRESENCE OF DETECTABLE IgG ANTIBODY TO RUBELLA VIRUS Performed By: #### 1 0055, [id number], 51229, 67703 #### [facility] [address] RUBEOLA MEASLES IGGon 2021 RUBEO IGG 4.62 Normal [facility] Comment on above: Result Comment: NORM AL RANGES: < OR = 0.9O NEGATIVE ; NO DETECTABLE IgG ANTIBODY TO RUBEOLA 0.91 - 1.09 EQUIVOCAL; REPEAT TESTING SUGGESTED > OR = 1.10 POSITIVE ; INDICATES PRESENCE OF DETECTABLE IgG ANTIBODY TO RUBEOLA Performed By: #### 1 0055, 77837, 40356, 59448 #### [facility] [address] TB QUANTIFERON PLUSon 2021 MITOGEN MINUS NIL 8.15 IU/mL Normal The [facility] Comment on above: Performed By: #### 3 1592 #### [facility] [address] NIL 0.03 IU/mL Normal [facility] Comment on above: Performed By: #### 3 1592 #### [facility] [address] TB QUANTIFERON Negative Normal NEGATIVE [facility] Comment on above: Result Comment: Eric tiferon TB Gold Interpretation (IU/mL): NEGATIVE: M. tuberculosis infection not likely. Nil: <=8.0 TB1 Antigen minus Nil (VN9XL-CSR): <0.35 OR >=0.35; and <25% of Nil value. TB2 Antigen minus Nil (AZ5ZW-UTW): <0.35 OR >=0.35; and <25% of Nil [...] (https://www.cdc.gov/tb/publications/guidlines/default.htm Performed By: #### 3 1592 #### [facility] [address] [place] [address], [facility] TB1 AG 0.03 IU/mL Normal [facility] Comment on above: Performed By: #### 3 1592 #### [facility] [address] [place] [address], [facility] TB1 AG MINUS NIL 0.00 IU/mL Normal [facility] Comment on above: Performed By: #### 3 1592 #### [facility] [address] [place] [address], [facility] TB2 AG 0.04 IU/mL Normal [facility] Comment on above: Performed By: #### 3 1592 #### [facility] [address] [place] [address], [facility] TB2 AG MINUS NIL 0.01 IU/mL Normal [facility] Comment on above: Performed By: #### 3 1592 #### [facility] [address] [place] [address], [facility] VARICELLA ZOSTER IGGon 02-07 VARICELLA IGG 2.60 Normal [facility] Comment on above: Result Comment: NORM AL RANGES: < OR = 0.9O NEGATIVE ; NO DETECTABLE IgG ANTIBODY TO VARICELLA-ZOSTER VIRUS 0.91 - 1.09 EQUIVOCAL; REPEAT TESTING SUGGESTED > OR = 1.10 POSITIVE ; INDICATES PRESENCE OF DETECTABLE IgG ANTIBODY TO VARICELLA-ZOSTER VIRUS Performed By: #### 1 0055, 73124, 10047, 47510 #### [facility] Esha WIGGINS. [address] HPV DNA High Riskon 08-19-19 22 HPV [facility] Comment on above: Result Comment: This [...] purposes. Performed By: #### H PVH #### [address] [address] Noise Abatement Engineer: Rickey Watson MD HPV Type 16 Not detected [facility] Comment on above: Performed By: #### H PVH #### [address] [address] Noise Abatement Engineer: Rickey Watson MD HPV Type 18 Not detected [facility] Comment on above: Performed By: #### H PVH #### [facility] [address] [place] [address] Noise Abatement Engineer: Rickey Watson MD Other High Risk HPV Not detected [facility] Comment on above: Performed By: #### H PVH #### [facility] [address] [place] [address] Noise Abatement Engineer: Rickey Watson MD HPV DNA High Riskon 08-18-19 Source .GENITAL - NOT SPECIFIED Normal [facility] Comment on above: Performed By: #### H PVH #### [address] [address] Noise Abatement Engineer: Rickey Watson MD HPV Sample .THIN PREP Normal [facility] Comment on above: Performed By: #### H PVH #### [address] [address] Noise Abatement Engineer: Rickey Watson MD Chlamydia/GC DNA, TPon 08-10 Chlamydia Probe, TP Negative Normal NEG [facility] Comment on above: Result Comment: CHLA MYDIA [...] target. Performed By: #### C YTCGP #### [address] [address] Noise Abatement Engineer: Rickey Watson MD Gonorrhea Probe, TP Negative Normal NEG [facility] Comment on above: Result Comment: NEIS SERIA [...] target. Performed By: #### C YTCGP #### [address] [address] Noise Abatement Engineer: Rickey Watson MD Cytologyon 08-08-2021 Cytology (NOTE) INTERPRETATION Cervical material, (ThinPrep vial, Imaging-assisted review): Specimen Adequacy: Satisfactory for evaluation. - Endocervical/transfor mation zone component present. - Scant cellularity. Descriptive Diagnosis: Atypical squamous cells of undetermined significance (ASC-US). Broke Worker: AMANDA Michaels M.D. Electronically Signed Out rdd/08/18/2021 Amendments Originally Reported As: Procedure/Addendum Source: Clinical History LMP: Patient Name: Med Rec: Path Number: Fax: Normal [facility] Comment on above: Performed By: #### P PPVP #### [address] [id number] Noise Abatement Engineer: Rickey Watson MD QuantiFERON TBon 12-24-2020 Quanti Binu minus NIL 8.10 IU/mL [facility] Comment on above: Performed By: #### R UBI, LUIZ, MARITZA, VZI #### [facility] [address] [place] [address] [id number] Noise Abatement Engineer: Rickey Watson MD #### AQF #### [facility] [address] [place] [address] Noise Abatement Engineer: Mark Grossman MD Quanti TB Gold Plus Negative Normal Negative [facility] Comment on above: Result Comment: (NOT E) [...] Mycobacterium tuberculosis Infection --- [place], 2010 (http://www.cdc.gov/mmwr/preview/mmwrhtml/fj6710j5.htm), for more information concerning test performance in low-prevalence populations and use in occupational screening. Performed By: #### R LUIZ MCKEON, MARITZA, VZI #### [facility] [address] [place], [place] [id number] Noise Abatement Engineer: Rickey Watson MD #### AQF #### [facility] [address] [place] [address] Noise Abatement Engineer: Mark Grossman MD Quanti TB1 minus NIL 0.00 IU/mL Normal 0.00-0.34 [facility] Comment on above: Performed By: #### R LUIZ MCKEON, MARITZA, VZI #### [facility] [address] [place], [place] [id number] Noise Abatement Engineer: Rickey Watson MD #### AQF #### [facility] [address] [place] [address] Noise Abatement Engineer: Mark Grossman MD Quanti TB2 minus NIL 0.01 IU/mL Normal 0.00-0.34 [facility] Comment on above: Performed By: #### R LUIZ MCKEON, MARITZA, VZI #### [facility] [address] [place] [address] Noise Abatement Engineer: Rickey Watson MD #### AQF #### [facility] [address] [place] [address] Noise Abatement Engineer: Mark Grossman MD QuantiFERON NIL 0.01 IU/mL Normal [facility] Comment on above: Result Comment: (NOT E) Performed By: [facility] [address] [place] [address] Reading Coach: Carolyn Wei MD Performed By: #### R UBI, LUIZ, MARITZA, VZI #### [address] [id number] Noise Abatement Engineer: Rickey Watson MD #### AQF #### [address] [id number] Noise Abatement Engineer: Mark Grossman MD Measles (Rubeola) Imon 12-22 Measles (Rubeola) Im 3.68 Normal >1.09 [facility] Comment on above: Result Comment: Interpretation: IMMUNE Reference Range: <0.91 Not Immune 0.91-1.09 Equivocal >1.09 Immune Performed By: #### R UBI, LUIZ, MARITZA, VZI #### [address] [id number] Noise Abatement Engineer: Rickey Watson MD #### AQF #### [address] [id number] Noise Abatement Engineer: Mark Grossman MD Mumps,Immun,Abon 12-22-2020 Mumps,Immun,Ab 1.16 Normal >1.09 [facility] Comment on above: Result Comment: Interpretation: IMMUNE Reference Range: <0.91 Not Immune 0.91-1.09 Equivocal >1.09 Immune Performed By: #### R UBI, LUIZ, MARITZA, VZI #### [place] [address] Noise Abatement Engineer: Rickey Watson MD #### AQF #### [address] [id number] Noise Abatement Engineer: Makr Grossman MD VZ Immunityon 12-22-2020 VZ Immunity 2.24 Normal >1.09 [facility] Comment on above: Result Comment: Interpretation: IMMUNE Reference Range: <0.91 Not Immune 0.91-1.09 Equivocal >1.09 Immune Performed By: #### R UBI, LUIZ, MARITZA, VZI #### [address] [place], [place] [id number] Noise Abatement Engineer: Rickey Watson MD #### AQF #### [facility] [address] [place] [address] Noise Abatement Engineer: Mark Grossman MD Rubella Ab, IgGon 12-21-2020 Rubella Ab, IgG 16.2 IU/mL Normal [facility] Comment on above: Result Comment: REFERENCE RANGE: <5.0 NON-REACTIVE (non-immune) 5.0 TO 9.9 EQUIVOCAL >=10.0 REACTIVE (immune) Performed By: #### R UBI, LUIZ, MARITZA, VZI #### [facility] [address] [place] [address] [id number] Noise Abatement Engineer: Rickey Watson MD #### AQF #### [facility] [address] [place] [address] Noise Abatement Engineer: Mark Grossman MD Rubella antibody, IgGOrdered By: Jimmy Meehan on 12-21-2020 Rubella virus IgG Ql (S) 16.2 IU/mL [facility]: Comment on above: REFERENCE RANGE: <5.0 NON-REACTIVE (non-immune) 5.0 TO 9.9 EQUIVOCAL >=10.0 REACTIVE (immune) [facility] Phone: Lab - Toxicology Resultson 0 03-11-2020 Lab - Toxicology Results [id number] Normal [facility] QuantiFERON TB Gold (In Tube ) LCon 03-08-2020 QuantiFERON Criteria LC Comment [facility] Comment on above: Result Comment: The QuantiFERON-TB Gold Plus result is determined by subtracting the Nil value from either TB antigen (Ag) tube. The mitogen tube serves as a control for the test. Performed By: #### 4 [id number], [id number] #### [facility] (DEFAULT) [address] [place] [address] QuantiFERON M. tuberculosis1 Ag Value LC 0.09 IU/mL [facility] Comment on above: Performed By: #### 4 [id number], [id number] #### [facility] (DEFAULT) [address] [place] [address] QuantiFERON M. tuberculosis2 Ag Value LC 0.08 IU/mL [facility] Comment on above: Performed By: #### 4 [id number], [id number] #### [facility] (DEFAULT) [address] [place] [address] QuantiFERON Mitogen Value LC >10.[address] [facility] Comment on above: Result Comment: Perf ormed At: [address] [id number] Kat Arevalo PhD Ph:[phone] Performed By: #### 4 [id number], [id number] #### [facility] (DEFAULT) [address] [place] [address] QuantiFERON Nil Value LC 0.01 IU/mL [facility] Comment on above: Performed By: #### 4 [id number], [id number] #### [facility] (DEFAULT) [address] [place] [address] QuantiFERON-TB Gold Plus LCo n 03-08-2020 QuantiFERON-TB Gold Plus LC Negative Negative [facility] Comment on above: Result Comment: Perf ormed At: [address] [id number] Kat Arevalo PhD Ph:[phone] Performed By: #### 4 [id number], [id number] #### [facility] (DEFAULT) [address] [place] [address] QuantiFERON Incubation LC Incubation performed. [facility] Comment on above: Result Comment: Perf ormed At: [address] [id number] Kat Arevalo PhD Ph:[phone] Performed By: #### 4 [id number], [id number] #### [facility] (DEFAULT) [address] [place] [address] HBSab Qnt LCon 03-05-2020 Hep B Surf Ab Quant LC 145.6 mIU/mL Immunity>9.[address] [facility] Comment on above: Result Comment: Stat us of Immunity Anti-HBs Level Inconsistent with Immunity 0.0 - 9.9 Consistent with Immunity >9.9 Performed At: [facility] [address] [place], [place] [id number] Kat Arevalo PhD Ph:[phone] Performed By: #### 1 [id number], [id number] #### [facility] (DEFAULT) [address] [place] [address] Measles/Mumps/Rubella Immuni ty on 03-05-2020 Mumps Abs, IgG LC 69.5 AU/mL Immune >10.9 [facility] Comment on above: Result Comment: Nega tive <9.0 Equivocal 9.0 - 10.9 Positive >10.9 A positive result generally indicates past exposure to Mumps virus or previous vaccination. Performed At: [facility] [address] [place] [id number] Kat Arevalo PhD Ph:[phone] Performed By: #### 1 [id number], [id number] #### [facility] (DEFAULT) [address] [place] [address] Rubella Antibodies, IgG LC 1.75 index Immune >0.[address] [facility] Comment on above: Result Comment: Non- immune <0.90 Equivocal 0.90 - 0.99 Immune >0.99 Performed By: #### 1 [id number], [id number] #### [facility] (DEFAULT) [address] [place] [address] Rubeola Ab, IgG, EIA LC >300.0 Immune >16.[address] [facility] Comment on above: Result Comment: Nega tive <13.5 Equivocal 13.5 - 16.4 Positive >16.4 Presence of antibodies to Rubeola is presumptive evidence of immunity except when acute infection is suspected. Performed By: #### 1 [id number], [id number] #### [facility] (DEFAULT) [address] [place] [address] Nicotine Metabolite, Urine L Con 03-05-2020 Cotinine LC Negative Cyxvhq=[address] [facility] Comment on above: Result Comment: Perf ormed At: [facility] [place] [address] [place], [place] [id number] Jose Schwartz PhD Ph:[phone] Performed By: #### 1 [id number] #### [facility] (DEFAULT) [address] [place] [address] Vital Signs Date Time Vital Sign Value Performing Clinician Faci lity 06-19-2024 10:40-0500 Body mass index (BMI) [Ratio] 40.02 kg/m2 Suri Parker PA Work Phone: [facility] 06-19-2024 10:40-0500 Body weight 99.25 kg Suri Parker PA Work Phone: [facility] 06-19-2024 10:40-0500 Diastolic blood pressure 74 mm[Hg] Suri Parker PA Work Phone: [facility] 06-19-2024 10:40-0500 Systolic blood pressure 110 mm[Hg] Suri [place] PA Work Phone: [facility] 06-05-2024 11:46-0500 Body mass index (BMI) [Ratio] 39.69 kg/m2 Suri [place] PA Work Phone: [facility] 06-05-2024 11:46-0500 Body weight 98.43 kg Suri Parker PA Work Phone: [facility] 06-05-2024 11:46-0500 Diastolic blood pressure 80 mm[Hg] Suri Parker PA Work Phone: [facility] 06-05-2024 11:46-0500 Systolic blood pressure 114 mm[Hg] Suri [place] PA Work Phone: [facility] 05-22-2024 09:57-0400 Body mass index (BMI) [Ratio] 39.1 kg/m2 Jasiel Meade DO Work Phone: [facility] 05-22-2024 09:57-0400 Body weight 96.98 kg Jasiel Deshaun DO Work Phone: [facility] 05-22-2024 09:57-0400 Diastolic blood pressure 72 mm[Hg] Jasiel Deshaun DO Work Phone: [facility] 05-22-2024 09:57-0400 Systolic blood pressure 110 mm[Hg] Jasiel Deshaun DO Work Phone: [facility] 05-08-2024 09:31-0400 Body mass index (BMI) [Ratio] 38.59 kg/m2 Suri LORENZO Work Phone: [facility] 05-08-2024 09:31-0400 Body weight 95.71 kg Suri LORENZO Work Phone: [facility] 05-08-2024 09:31-0400 Diastolic blood pressure 78 mm[Hg] Suri LORENZO Work Phone: [facility] 05-08-2024 09:31-0400 Systolic blood pressure 120 mm[Hg] Suri LORENZO Work Phone: [facility] Healthcare Encounters Encounter Date Encounter Type Care Provider Facility Start: 06-19-2024 End: 06-19-2024 Bamboo flowsheet Suri LORENZO Work Phone: [facility] Start: 06-19-2024 End: 06-19-2024 Bamboo flowsheet Suri LORENZO Work Phone: [facility] Start: 06-19-2024 End: 06-19-2024 flow sheet Suri LORENZO Work Phone: [facility] Comment on above: Third trimester preg jeffrey; 34 weeks gestation of Start: 06-19-2024 End: 06-19-2024 ambulatory SURI CANALES Not Available Start: 06-05-2024 End: 06-05-2024 Bamboo flowsheet Suri LORENZO Work Phone: [facility] Start: 06-05-2024 End: 06-05-2024 Bamboo flowsheet Suri LORENZO Work Phone: [facility] Start: 06-05-2024 End: 06-05-2024 flow sheet Suri LORENZO Work Phone: [facility] Comment on above: 32 weeks gestation o f ; Third trimester Start: 06-05-2024 End: 06-05-2024 ambulatory SURI CANALES Not Available Start: 05-22-2024 End: 05-22-2024 Bamboo flowsheet Jasiel Deshaun DO Work Phone: [facility] Start: 05-22-2024 End: 05-22-2024 Bamboo flowsheet Jasiel Deshaun DO Work Phone: [facility] Start: 05-22-2024 End: 05-22-2024 flow sheet Jasiel Deshaun DO Work Phone: [facility] [facility] Comment on above: 30 weeks gestation o f ; Third trimester ; Gestational diabetes mellitus (GDM), antepartum, gestational diabetes method of control unspecified Start: 05-22-2024 End: 05-22-2024 ambulatory JASIEL DESHAUN Not Available Start: 05-08-2024 End: 05-08-2024 Bamboo flowsheet Suri LORENZO Work Phone: [facility] Start: 05-08-2024 End: 05-08-2024 Bamboo flowsheet Suri LORENZO Work Phone: [facility] Start: 05-08-2024 End: 05-08-2024 flow sheet Suri LORENZO Work Phone: [facility] Comment on above: 28 weeks gestation o f ; Third trimester ; size inconsistent with dates Start: 05-08-2024 End: 05-08-2024 ambulatory SURI CANALES Not Available Start: 05-01-2024 End: 05-01-2024 Clinisync Result Encounter Jasiel Deshaun DO Work Phone: [facility] External Department Unsolicited Start: 05-01-2024 End: 05-01-2024 Clinisync Result Encounter Jasiel Deshaun DO Work Phone: [facility] External Department Unsolicited Start: 04-17-2024 End: 04-17-2024 ambulatory JASIEL DESHAUN Not Available Start: 04-10-2024 End: 04-10-2024 ambulatory JASIEL R DESHAUN [facility] Start: 03-13-2024 End: 03-13-2024 ambulatory SURI CANALES Not Available Start: 02-13-2024 End: 02-13-2024 ambulatory JASIEL DESHAUN Not Available Start: 01-17-2024 End: 01-17-2024 ambulatory SURI PARKER Not Available Start: 08-22-2023 End: 08-22-2023 ambulatory JASIEL DESHAUN Not Available Start: 07-04-2023 End: 07-04-2023 ambulatory JASIEL DESHAUN Not Available Start: 08-21-2022 End: 08-21-[address] [facility]LLAMY [facility] Facility: Start: 08-08-2021 End: 08-09-2021 ambulatory SHANTELLE HDEZ [facility] Start: 12-21-2020 End: 12-22-2020 [facility] Start: 12-21-2020 End: 12-21-2020 Subsequent [...] - Td) DTaP/Tdap/Td vaccine (7 - Td) [place], [place] Start: 10-23-2024 End: 10-23-2024 Patient encounter procedure 10/23/2024 10:20 AM EDT Office Visit [facility] [address] [place] [id number] Jasiel Meade, DO [address] [place], [place] [id number] [facility] Start: 08-25-2024 End: 08-25-2024 Patient encounter procedure 08/25/2024 9:00 AM EST Office Visit [facility] [address] [place] [phone] Jasiel Meade, DO [address] [place] [address] [facility] Start: 07-03-2024 End: 07-03-2024 Patient encounter procedure 07/03/2024 10:40 AM EST Routine [facility] [address] [place] [phone] Jasiel Meade, DO [address] [place] [address] [facility] Start: 07-02-2024 End: 07-02-2024 Professional / ancillary services management 07/02/2024 2:00 PM EST Ancillary Procedure [facility] [address] [place] [phone] [facility] Start: 06-19-2024 End: [...] control unspecified Expected: 05/22/2024 (Approximate), Expires: 05/22/2025 [facility] Healthcare Comment on above: Expected: 05/22/2024 (Approximate), Expires: 05/22/2025 Start: 05-22-2024 End: 05-22-2025 US for US OB SCAN FOR GROWTH Imaging Routine Third trimester Gestational diabetes mellitus (GDM), antepartum, gestational diabetes method of control unspecified Expected: 05/22/2024 (Approximate), Expires: 05/22/2025 [facility] Work Phone: Comment on above: Expected: 05/22/2024 (Approximate), Expires: 05/22/2025 Start: 05-22-2024 End: 05-22-2024 Patient encounter procedure [facility] Comment on above: Arrived Start: 05-22-2024 End: 05-22-2024 Professional / ancillary services management 05/22/2024 9:00 AM EDT Ancillary Procedure [facility] [address] [place] [address] [place] [phone] [facility] Start: 05-08-2024 End: 05-08-2025 US for US OB SCAN FOR GROWTH Imaging Routine size inconsistent with dates Expected: 05/08/2024 (Approximate), Expires: 05/08/2025 [facility] Work Phone: Comment on above: Expected: 05/08/2024 (Approximate), Expires: 05/08/2025 Start: 05-08-2024 End: 05-08-2024 Patient encounter procedure [facility] Comment on above: Arrived Start: 03-30-2024 Influenza vaccination Influenza Vacc ine (#1) [facility] Start: 03-18-2023 Screening for malign ant neoplasm of cervix Cervical cancer screen [employer] Work Phone: Start: 06-12-2021 Screening for malign ant neoplasm of cervix Cervical cancer screen [place] Start: 03-30-2021 Influenza vaccination [facility] vacc ine [facility] Start: 03-30-2020 Influenza vaccination Flu vaccine (# 1) [place] Start: 06-12-2019 Screening for Chlamy flaco trachomatis Chlamydia screen [place] Start: 09-13-2011 Hepatitis A vaccine (2 of 2 - 2-dose series) Hepatitis A vaccine (2 of 2 - 2-dose series) [place] Start: 2007 COVID-19 Vaccine (1) COVID-19 Vaccin e (1) [employer] Phone: Start: 1995 Hepatitis C screening Hepatitis C sc reen [employer] Phone: End: 12-21-2020 Mumps Antibody, IgG Mumps Antibody, IgG Lab Routine Once for 1 Occurrences starting 12/21/2020 until 12/21/2020 [employer] Phone: Comment on above: Once for 1 Occurrenc es starting 12/21/2020 until 12/21/2020 Mumps Antibody, IgG Mumps Antibo dy, IgG Lab Routine 12/21/2020 4:27 PM EDT [employer] Phone: End: 12-21-2020 Quantiferon TB Gold Quantiferon TB Gold Microbiology Routine Once for 1 Occurrences starting 12/21/2020 until 12/21/2020 [employer] Phone: Comment on above: Once for 1 Occurrenc es starting 12/21/2020 until 12/21/2020 Quantiferon TB Gold Quantiferon TB Gold Microbiology Routine 12/21/2020 4:27 PM EDT [employer] Phone: End: 12-21-2020 Rubeola Antibody, IgG Rubeola Antibody, IgG Lab Routine Once for 1 Occurrences starting 12/21/2020 until 12/21/2020 [employer] Phone: Comment on above: Once for 1 Occurrenc es starting 12/21/2020 until 12/21/2020 Rubeola Antibody, IgG Rubeola An tibody, IgG Lab Routine 12/21/2020 4:27 PM EDT [employer] Phone: End: 12-21-2020 Varicella Zoster Antibody, IgG Varicella Zoster Antibody, IgG Lab Routine Once for 1 Occurrences starting 12/21/2020 until 12/21/2020 [employer] Phone: Comment on above: Once for 1 Occurrenc es starting 12/21/2020 until 12/21/2020 Varicella Zoster Antibody, IgG Varicella Zoster Antibody, IgG Lab Routine 12/21/2020 4:27 PM EDT [employer] Phone: Immunizations Immunization Date Immunization Notes Care Provider [facility] 06-28-2021 influenza virus vacc ine, unspecified formulation Jasiel Deshaun Bahu Work Phone: [facility] 03-09-2020 tuberculin skin test ; purified protein derivative solution, intradermal [facility], [place] 04-28-2019 influenza, injectabl e, quadrivalent, preservative free [facility] 06-12-2018 influenza, injectabl e, quadrivalent, preservative free [facility] 05-01-2018 tuberculin skin test ; purified protein derivative solution, intradermal [facility] 09-12-2017 hepatitis B vaccine, adult dosage [facility] 04-13-2017 Human Papillomavirus 9-valent vaccine [facility] 04-10-2017 hepatitis B vaccine, adult dosage [facility] 03-07-2017 hepatitis B vaccine, adult dosage [facility] 03-07-2017 meningococcal polysaccharide (groups A, C, Y and W-135) diphtheria toxoid conjugate vaccine (MCV4P) [facility], [place] 03-07-2017 tuberculin skin test ; purified protein derivative solution, intradermal [facility], [place] 02-26-2017 tetanus toxoid, redu juve diphtheria toxoid, and acellular pertussis vaccine, adsorbed [facility], [place] 02-26-2017 tuberculin skin test ; purified protein derivative solution, intradermal [place], [place] 08-13-2014 Human Papillomavirus 9-valent vaccine [place], [place] 04-01-2014 meningococcal polysaccharide (groups A, C, Y and W-135) diphtheria toxoid conjugate vaccine (MCV4P) [place], [place] 02-10-2014 Human Papillomavirus 9-valent vaccine [place], [place] Payers Date Payer Category Payer Private Health Insurance [employer] [id number] 2022 Unknown [employer] [id number] 2022-Present [address] [place] [address] [id number] 2022 Unknown [id number] 2021 Unknown [id number] 2016 Private Health Insurance SHIV FIERRO [id number] 2016-Present [phone] [address] [place] [address] [id number] 1995 Unknown [id number] [id number]. 175 1995 Unknown [id number] 2.16.840.1.415824.3.579.2. 593 1995 Unknown [id number] 2.16.840.1.438050.3.579.2. 1286 1995 Unknown [id number] 2.16.840.1.415124.3.579.2. 1259 1995 Unknown [id number] 2.16.840.1.037467.3.579.2. 9 1995 Unknown [id number] 2.16.840.1.778648.3.579.2. 1259 1995 Unknown [id number] 2.16.840.1.667729.3.579.2. 1259 1995 Unknown [id number] 2.16.840.1.022537.3.579.2. 1259 1995 Unknown [id number] 2.16.840.1.834783.3.579.2. 9 1995 Unknown [id number] 2.16.840.1.907666.3.579.2. 1259 1995 Unknown [id number] 2.16.840.1.989204.3.579.2. 1259 1995 Unknown [id number] 2.16.840.1.034133.3.579.2. 1259 1995 Unknown [id number] 2.16.840.1.554029.3.579.2. 1259 1959 Unknown [id number] Social History Date Type Detail Facility Start: 03-18-2020 End: 01-17-2024 Tobacco smoking status [facility] Never smoker [facility] Start: 03-18-2020 End: 01-17-2024 Tobacco use and exposure Never used [employer] Start: 02-05-2017 Alcohol Comment rarely [employer] Sex Assigned At Not on file [employer] [facility] Start: 1995 Sex Assigned At Female [employer] Work Phone: Start: 04-17-2024 End: 06-19-2024 Alcoholic beverage intake Ex-drinker (finding) [facility] Start: 01-17-2024 End: 04-17-2024 Alcoholic beverage intake [facility] Start: 01-17-2024 Tobacco use panel [facility] Start: 11-04-2023 [facility] Start: 02-20-2023 Gender identity Identifies as female gender (finding) [facility] Start: 02-20-2023 Sexual orientation Heterosexual (finding) [facility] Medical Equipment Procedure Code Equipment Code Equipment Original Text Equipment Identifier Dates Inject 1 each un flory the skin See administration instructions Use four times daily with insulin pen. [id number] Start: 05-26-2024 End: 06-25-2024 History of Present [...] nursing note reviewed. Exam conducted with a plant hr manager present. Vitals: Estimated body mass index is [...] nursing note reviewed. Exam conducted with a plant hr manager present. Vitals: Estimated body mass index is [...] nursing note reviewed. Exam conducted with a plant hr manager present. Vitals: Estimated body mass index is [...] documented in this encounter [facility] Evaluation note Note Date & [...] documented in this encounter [facility] Evaluation note Note Date & Type Note Facility Evaluation note Diagnosis 32 weeks gestation of Third trimester state, incidental documented in this encounter [facility] Evaluation note Note Date & Type Note Facility Evaluation note Diagnosis Third trimester state, incidental 34 weeks gestation of documented in this encounter [facility] Summary Purpose Family History No Family History Records FoundNo Family History Records FoundNo Family History Records FoundNo Family History Records FoundNo Family History Records FoundNo Family History Records Found Advance Directives No Advanced Directives Records FoundDocuments on File Type Date Recorded 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 ACP-Advance Directive ACP-Power of Policy Checker Additional Source Comments INFORMATION SOURCE (unrecogn ized section and content) DATE CREATED AUTHOR 03/12/2020 [facility] DATE CREATED AUTHOR AUTHOR'S ORGANIZ ATION 08/20/2021 [facility] DATE CREATED AUTHOR AUTHOR'S ORGANIZ ATION 02/18/2022 [facility] DATE CREATED AUTHOR AUTHOR'S ORGANIZ ATION 08/25/2022 [facility] DATE CREATED AUTHOR AUTHOR'S ORGANIZ ATION 04/12/2024 [facility] DATE CREATED AUTHOR AUTHOR'S ORGANIZ ATION 06/22/[address] [facility] dical Specialists [employer] Care Teams (unrecognized sec tion and content) Nanotechnology Engineering Technologist Relationship Specialty [place] [address] [place] [address] PCP - General Family Medicine 03/22/23 Nanotechnology Engineering Technologist Relationship Specialty [place] [address] [place] [address] PCP - General Family Medicine 03/22/23 Nanotechnology Engineering Technologist Relationship Specialty [place] [address] [place] [address] PCP - General Family Medicine 03/22/23 Suri Canales PA [address] [place] [address] [place] [address] PCP - [facility] [employer] 07/30/22 07/29/99 [employer] Engineering Technologist Relationship Specialty [place] [address] [place] [address] PCP - General Family Medicine 03/22/23 Suri Canales PA [address] [place] [address] [place] [address] PCP - [facility] [employer] 07/30/22 07/29/99 Nanotechnology Engineering Technologist Relationship Specialty [place] [address] [place] [address] PCP - General Family Medicine 03/22/23 Suri Canales [place] [facility] [place] [address] PCP - [employer] 07/30/22 07/29/99 Nanotechnology Engineering Technologist Relationship Specialty [place] [address] [place] [address] PCP - General Family Medicine 03/22/23 Suri Canales PA [facility] [place], [facility] PCP - [employer] 07/30/22 07/29/99 Nan[employer] Engineering Technologist Relationship Specialty [place] [address] [place] [address] PCP - General Family Medicine 03/22/23 Suri Canales PA [address] [place], [place] [address]sujey Mai, [facility] PCP - [facility] [employer] 07/30/22 07/29/99 [employer] Engineering Technologist Relationship Specialty Start [place] [address] [place] [address] PCP - General Family Medicine 03/22/23 Suri Canales [place] [facility] [place] [address] (work) PCP - [employer] 07/30/22 07/29/99 Reason for Visit (unrecogniz [...] BE BASED ON THE PRIMARY CLINICAL RECORDS. [employer] [facility]. provides no warranty or guarantee of the accuracy or completeness of information in this document.
== END 2024-07-02 13:32 | disposition home or self-care (01) ==
LOC: RAD 13:31
PROVIDERS: Visit Provider Obstetrics & Gynecology
DX: O26.843 Uterine size-date discrepancy, third trimester (principal); Z3A.36 36 weeks gestation of pregnancy; O24.419 Gestational diabetes mellitus in pregnancy, unspecified control
CPT/HCPCS: 76816

== ENCOUNTER 2024-07-03 06:29 | Outpatient (OUT) | payer OTHER, SELFPAY ==
--- OUTSIDE RECORDS SUMMARY | 2024-07-03 06:32 | XMS_ITS | CCD ---
Author Organization [facility] Care Team Providers Care Vice President Name Role Phone Shantelle Dean Primary Care [...] Healthcare Nitrite, UA Negative Negative - Positive [facility] pH, UA 7 5 - 9 [facility] Protein, UA Negative Negative - 1999(20) ++++ mg/dL [facility] Healthcare Spec Grav, UA 1.015 1 - 1.03 [facility] care Urobilinogen, UA 0.2 0.2 - 12 mg/dL [facility] Healthcare [facility] Urinalysis macro (dipstick) panel (U)on 05-22-2024 Bilirubin, UA Negative Negative - 4(70) +++ mg/dL [facility] Blood, UA Negative Negative - 50 Bib/mcL [facility] Healthcare Clarity, UA Clear [facility] Color, UA Yellow [facility] Glucose, UA Negative Negative - 1999(110) ++++ mg/dL [facility] Interpretation and review of laboratory results [...] Spec Grav, UA 1.015 1 - 1.03 [facility] Urobilinogen, UA 0.2 0.2 - 12 mg/dL [facility] Urinalysis macro (dipstick) panel (U)on 05-08-2024 Bilirubin, UA Negative Negative - 4(70) +++ mg/dL [facility] Blood, UA Negative Negative - 50 Bib/mcL [facility] Clarity, UA Clear [facility] re Color, UA Yellow [facility] e Glucose, UA Negative Negative - 1999(110) ++++ mg/dL [facility] Interpretation and review of laboratory results Abnormal [facility] Ketones, UA Negative Negative - 160(16) ++++ mg/dL [facility] Leukocytes, UA Positive Negative - 500+++ Alvaro/mcL [facility] Comment on above: small Nitrite, UA Negative Negative - Positive [facility] pH, UA 7.0 5 - 9 [facility] Protein, UA Negative Negative - 1999(20) ++++ mg/dL [facility] Spec Grav, UA 1.020 1 - 1.03 [facility] Urobilinogen, UA 0.2 0.2 - 12 mg/dL [facility] GLUCOSE TOLERANCE 3 HOURon 1 GLUCOSE TOLERANCE 3 HOUR High mg/dL [facility] Comment on above: GLU FAST 97H (<95) C ol: 05/01/24 0722 GLU 1HR 173 (<180) Col: 05/01/24 0823 GLU 2HR 162H (<155) Col: 05/01/24 0924 GLU 3HR 114 (<140) Col: 05/01/24 1022 Interpretation and review of laboratory results Abnormal [facility] PAP ACOG PANEL 2: 21 to 29on 08-25-2022 . . Normal [facility] Comment on above: Performed By: #### 4 [id number] #### [facility] [address] [address] [address] Matias Shukla Age Gdln ACOG Testing - Normal [facility] Comment on above: Performed By: #### 4 [id number] #### [facility] [address] [place], [place] [address] Dr. Matias Shukla DIAGNOSIS: Comment Normal [facility] Comment on above: Result Comment: NEGA TIVE FOR INTRAEPITHELIAL LESION OR MALIGNANCY. Performed By: #### 4 [id number] #### [facility] [address] [place] [address] Dr. Matias Shukla Methodology: Comment [facility] Comment on above: Result Comment: This liquid based ThinPrep(R) pap test was screened with the use of an image guided system. Performed By: #### 4 [id number] #### [facility] [address] [place] [address] Dr. Matias Shukla Note: Comment Normal [facility] Comment on above: Result Comment: The Pap smear is a screening test designed to aid in the detection of premalignant and malignant conditions of the uterine cervix. It is not a diagnostic procedure and should not be used as the sole means of detecting cervical cancer. Both false-positive and false-negative reports do occur. . Performed By: #### 4 [id number] #### [facility] [address] [place] [address] Dr. Matias Shukla Performed by: Comment Normal [facility] Comment on above: Result Comment: Monika Prieto, Tool Filer (ASCP) Performed By: #### 4 [id number] #### [facility] [address] [place] [address] Dr. Matias Shukla Reflex Criteria: Comment [facility] Comment on above: Result Comment: The HPV DNA reflex criteria were not met with this specimen result therefore, no HPV testing was performed. . Performed By: #### 4 [id number] #### [facility] [address] [place] [address] Dr. Matias Shukla Specimen adequacy: Comment Normal [facility] Comment on above: Result Comment: Sati sfactory for evaluation. Endocervical and/or squamous metaplastic cells (endocervical component) are present. Performed By: #### 4 [id number] #### [facility] [address] [place] [address] Dr. Matias Shukla MUMPS IGG BLDon 02-07-2022 MUMPS IGG 1.14 Normal [facility] Comment on above: Result Comment: RAN IN TRIPLICATE NORMAL RANGES: < OR = 0.9O NEGATIVE ; NO DETECTABLE IgG ANTIBODY TO MUMPS 0.91 - 1.09 EQUIVOCAL; REPEAT TESTING SUGGESTED > OR = 1.10 POSITIVE ; INDICATES PRESENCE OF DETECTABLE IgG ANTIBODY TO MUMPS Performed By: #### 1 0055, [id number], [id number], [id number] #### [facility] [address] RUBELLAon 02-07-2022 RUBELLA 1.73 Normal [facility] Comment on above: Result Comment: NORM AL RANGES: < OR = 0.9O NEGATIVE ; NO DETECTABLE IgG ANTIBODY TO RUBELLA 0.91 - 1.09 EQUIVOCAL; REPEAT TESTING SUGGESTED > OR = 1.10 POSITIVE ; INDICATES PRESENCE OF DETECTABLE IgG ANTIBODY TO RUBELLA VIRUS Performed By: #### 1 0055, 62719, [id number], [id number] #### [facility] [address] RUBEOLA MEASLES IGGon 2021 RUBEO IGG 4.62 Normal [facility] Comment on above: Result Comment: NORM AL RANGES: < OR = 0.9O NEGATIVE ; NO DETECTABLE IgG ANTIBODY TO RUBEOLA 0.91 - 1.09 EQUIVOCAL; REPEAT TESTING SUGGESTED > OR = 1.10 POSITIVE ; INDICATES PRESENCE OF DETECTABLE IgG ANTIBODY TO RUBEOLA Performed By: #### 1 0055, 03860, 68532, 00626 #### [facility] [address] TB QUANTIFERON PLUSon 2021 MITOGEN MINUS NIL 8.15 IU/mL Normal [facility] Comment on above: Performed By: #### 3 1592 #### [facility] [address] NIL 0.03 IU/mL Normal [facility] Comment on above: Performed By: #### 3 1592 #### [facility] [address] TB QUANTIFERON Negative Normal NEGATIVE [facility] Comment on above: Result Comment: Eric tiferon TB Gold Interpretation (IU/mL): NEGATIVE: M. tuberculosis infection not likely. Nil: <=8.0 TB1 Antigen minus Nil ([id number]-HRW): <0.35 OR >=0.35; and <25% of Nil value. TB2 Antigen minus Nil (UQ6KC-HMT): <0.35 OR >=0.35; and <25% of Nil [...] By: #### 3 1592 #### [facility] [address] [place] [address], [facility] TB1 AG 0.03 IU/mL Normal [facility] Comment on above: Performed By: #### 3 1592 #### [facility] [address] [place] [address], [facility] TB1 AG MINUS NIL 0.00 IU/mL Normal [facility] Comment on above: Performed By: #### 3 1592 #### [facility] [address] [place] [address], [facility] TB2 AG 0.04 IU/mL Normal [facility] Comment on above: Performed By: #### 3 1592 #### [facility] [address] [place] [address], [facility] TB2 AG MINUS NIL 0.01 IU/mL Normal [facility] Comment on above: Performed By: #### 3 1592 #### [facility] [address] [place] [address], [facility] VARICELLA ZOSTER IGGon 02-07 VARICELLA IGG 2.60 Normal [facility] Comment on above: Result Comment: NORM AL RANGES: < OR = 0.9O NEGATIVE ; NO DETECTABLE IgG ANTIBODY TO VARICELLA-ZOSTER VIRUS 0.91 - 1.09 EQUIVOCAL; REPEAT TESTING SUGGESTED > OR = 1.10 POSITIVE ; INDICATES PRESENCE OF DETECTABLE IgG ANTIBODY TO VARICELLA-ZOSTER VIRUS Performed By: #### 1 0055, 18565, 54433, 15313 #### [facility] Esha WIGGINS. [address] HPV DNA High Riskon 08-19-19 22 HPV [facility] Comment on above: Result Comment: This test [...] purposes. Performed By: #### H PVH #### [address] [address] Power Supply Engineer: Rickey Watson MD HPV Type 16 Not detected [facility] Comment on above: Performed By: #### H PVH #### [address] [address] Power Supply Engineer: Rickey Watson MD HPV Type 18 Not detected [facility] Comment on above: Performed By: #### H PVH #### [facility] [employer] [address] [place] [address] Power Supply Engineer: Rickey Watson MD Other High Risk HPV Not detected [facility] Comment on above: Performed By: #### H PVH #### [facility] [address] [place] [address] Power Supply Engineer: Rickey Watson MD HPV DNA High Riskon 08-18-19 Source .GENITAL - NOT SPECIFIED Normal [facility] Comment on above: Performed By: #### H PVH #### [address] [address] Power Supply Engineer: Rickey Watson MD HPV Sample .THIN PREP Normal [facility] Comment on above: Performed By: #### H PVH #### [address] [address] Power Supply Engineer: Rickey Watson MD Chlamydia/GC DNA, TPon 08-10 Chlamydia Probe, TP Negative Normal NEG [facility] Comment on above: Result Comment: CHLA [...] target. Performed By: #### C YTCGP #### [address] [address] Power Supply Engineer: Rickey Watson MD Gonorrhea Probe, TP Negative Normal NEG [facility] Comment on above: Result Comment: NEIS [...] target. Performed By: #### C YTCGP #### [address] [address] Power Supply Engineer: Rickey Watson MD Cytologyon 08-08-2021 Cytology (NOTE) INTERPRETATION Cervical material, (ThinPrep vial, Imaging-assisted review): Specimen Adequacy: Satisfactory for evaluation. - Endocervical/transfor mation zone component present. - Scant cellularity. Descriptive Diagnosis: Atypical squamous cells of undetermined significance (ASC-US). Tool Filer: AMANDA Michaels M.D. Electronically Signed Out rdd/08/18/2021 Amendments Originally Reported As: Procedure/Addendum Source: Clinical History LMP: Patient Name: Med Rec: Path Number: Fax: Normal [facility] Comment on above: Performed By: #### P PPVP #### [address] [id number] Power Supply Engineer: Rickey Watson MD QuantiFERON TBon 12-24-2020 Quanti Binu minus NIL 8.10 IU/mL [facility] Comment on above: Performed By: #### R UBI, LUIZ, MARITZA, VZI #### [facility] [employer] [address] [place] [address] [id number] Power Supply Engineer: Rickey Watson MD #### AQF #### [facility] [address] [place] [address] Power Supply Engineer: Mark Grossman MD Quanti TB Gold Plus Negative Normal Negative [facility] Comment on above: Result Comment: (NOT [...] Mycobacterium tuberculosis Infection --- [place], 2010 (http://www.cdc.gov/mmwr/preview/mmwrhtml/nn3550d9.htm), for more information concerning test performance in low-prevalence populations and use in occupational screening. Performed By: #### R LUIZ MCKEON, MARITZA, VZI #### [facility] [address] [place], [place] [id number] Power Supply Engineer: Rickey Watson MD #### AQF #### [employer] [address] [place] [address] Power Supply Engineer: Mark Grossman MD Quanti TB1 minus NIL 0.00 IU/mL Normal 0.00-0.34 [facility] Comment on above: Performed By: #### R LUIZ MCKEON, MARITZA, VZI #### [facility] [address] [place], [place] [id number] Power Supply Engineer: Rickey Watson MD #### AQF #### [facility] [employer] [address] [place] [address] Power Supply Engineer: Mark Grossman MD Quanti TB2 minus NIL 0.01 IU/mL Normal 0.00-0.34 [facility] Comment on above: Performed By: #### R LUIZ MCKEON, MARITZA, VZI #### [facility] [address] [place] [address] Power Supply Engineer: Rickey Watson MD #### AQF #### [facility] [employer] [address] [place] [address] Power Supply Engineer: Mark Grossman MD QuantiFERON NIL 0.01 IU/mL Normal [facility] Comment on above: Result Comment: (NOT E) Performed By: [employer] [address] [place] [address] Physician Credentialing Specialist: Carolyn Wei MD Performed By: #### R UBI, LUIZ, MARITZA, VZI #### [address] [phone] Power Supply Engineer: Rickey Watson MD #### AQF #### [address] [id number] Power Supply Engineer: Mark Grossman MD Measles (Rubeola) Imon 12-22 Measles (Rubeola) Im 3.68 Normal >1.09 [facility] Comment on above: Result Comment: Interpretation: IMMUNE Reference Range: <0.91 Not Immune 0.91-1.09 Equivocal >1.09 Immune Performed By: #### R UBI, LUIZ, MARITZA, VZI #### [address] [phone] Power Supply Engineer: Rickey Watson MD #### AQF #### [address] [id number] Power Supply Engineer: Mark Grossman MD Mumps,Immun,Abon 12-22-2020 Mumps,Immun,Ab 1.16 Normal >1.09 [facility] Comment on above: Result Comment: Interpretation: IMMUNE Reference Range: <0.91 Not Immune 0.91-1.09 Equivocal >1.09 Immune Performed By: #### R UBI, LUIZ, MARITZA, VZI #### [place] [address] Power Supply Engineer: Rickey Watson MD #### AQF #### [address] [id number] Power Supply Engineer: Mark Grossman MD VZ Immunityon 12-22-2020 VZ Immunity 2.24 Normal >1.09 [facility] Comment on above: Result Comment: Interpretation: IMMUNE Reference Range: <0.91 Not Immune 0.91-1.09 Equivocal >1.09 Immune Performed By: #### R UBI, LUIZ, MARITZA, VZI #### [address] [place], [place] [phone] Power Supply Engineer: Rickey Watson MD #### AQF #### [facility] [address] [place] [address] Power Supply Engineer: Mark Grossman MD Rubella Ab, IgGon 12-21-2020 Rubella Ab, IgG 16.2 IU/mL Normal [facility] Comment on above: Result Comment: REFERENCE RANGE: <5.0 NON-REACTIVE (non-immune) 5.0 TO 9.9 EQUIVOCAL >=10.0 REACTIVE (immune) Performed By: #### R UBI, LUIZ, MARITZA, VZI #### [facility] [employer] [address] [place] [address] [id number] Power Supply Engineer: Rickey Watson MD #### AQF #### [facility] [address] [place] [address] Power Supply Engineer: Mark Grossman MD Rubella antibody, IgGOrdered By: Jimmy Meehan on 12-21-2020 Rubella virus IgG Ql (S) 16.2 IU/mL [facility] Phone: Comment on above: REFERENCE RANGE: <5.0 NON-REACTIVE (non-immune) 5.0 TO 9.9 EQUIVOCAL >=10.0 REACTIVE (immune) [employer] Phone: Lab - Toxicology Resultson 0 03-11-2020 Lab - Toxicology Results [id number] Normal [facility] QuantiFERON TB Gold (In Tube ) LCon 03-08-2020 QuantiFERON Criteria LC Comment [facility] Comment on above: Result Comment: The QuantiFERON-TB Gold Plus result is determined by subtracting the Nil value from either TB antigen (Ag) tube. The mitogen tube serves as a control for the test. Performed By: #### 4 [id number], [id number] #### [facility] (DEFAULT) [address] [place] [address] QuantiFERON M. tuberculosis1 Ag Value LC 0.09 IU/mL [facility] Comment on above: Performed By: #### 4 [id number], [id number] #### [facility] (DEFAULT) [address] [place] [address] QuantiFERON M. tuberculosis2 Ag Value LC 0.08 IU/mL [facility] Comment on above: Performed By: #### 4 [id number] #### [facility] (DEFAULT) [address] [place] [address] QuantiFERON Mitogen Value LC >10.00 [facility] Comment on above: Result Comment: Perf ormed At: [address] [id number] Kat Arevalo PhD Ph:[phone] Performed By: #### 4 [id number], [id number] #### [facility] (DEFAULT) [address] [place] [address] QuantiFERON Nil Value LC 0.01 IU/mL [facility] Comment on above: Performed By: #### 4 [id number], [id number] #### [facility] (DEFAULT) [address] [place] [address] QuantiFERON-TB Gold Plus LCo n 03-08-2020 QuantiFERON-TB Gold Plus LC Negative Negative [facility] Comment on above: Result Comment: Perf ormed At: [address] [id number] Kat Arevalo PhD Ph:[phone] Performed By: #### 4 [id number], [id number] #### [facility] (DEFAULT) [address] [place] [address] QuantiFERON Incubation LC Incubation performed. [facility] Comment on above: Result Comment: Perf ormed At: [address] [id number] Kat Arevalo PhD Ph:[phone] Performed By: #### 4 [id number], [id number] #### [facility] (DEFAULT) [address] [place] [address] HBSab Qnt LCon 03-05-2020 Hep B Surf Ab Quant LC 145.6 mIU/mL Immunity>9.9 [facility] Comment on above: Result Comment: Stat us of Immunity Anti-HBs Level Inconsistent with Immunity 0.0 - 9.9 Consistent with Immunity >9.9 Performed At: [facility] [address] [place], [place] [id number] Kat Arevalo PhD Ph:[phone] Performed By: #### 1 [id number], [id number] #### [facility] (DEFAULT) [address] [place] [address] Measles/Mumps/Rubella Immuni ty on 03-05-2020 Mumps Abs, IgG LC 69.5 AU/mL Immune >10.9 [facility] Comment on above: Result Comment: Nega tive <9.0 Equivocal 9.0 - 10.9 Positive >10.9 A positive result generally indicates past exposure to Mumps virus or previous vaccination. Performed At: [facility] [address] [place] [id number] Kat Arevalo PhD Ph:[phone] Performed By: #### 1 [id number], [id number] #### [facility] (DEFAULT) [address] [place] [address] Rubella Antibodies, IgG LC 1.75 index Immune >0.99 [facility] Comment on above: Result Comment: Non- immune <0.90 Equivocal 0.90 - 0.99 Immune >0.99 Performed By: #### 1 [id number], [id number] #### [facility] (DEFAULT) [address] [place] [address] Rubeola Ab, IgG, EIA LC >300.0 Immune >16.4 [facility] Comment on above: Result Comment: Nega tive <13.5 Equivocal 13.5 - 16.4 Positive >16.4 Presence of antibodies to Rubeola is presumptive evidence of immunity except when acute infection is suspected. Performed By: #### 1 [id number], [id number] #### [facility] (DEFAULT) [address] [place] [address] Nicotine Metabolite, Urine L Con 03-05-2020 Cotinine LC Negative Xndzpz=118 [facility] Comment on above: Result Comment: Perf ormed At: [facility] [address] [place], [place] [id number] Jose Schwartz PhD Ph:[phone] Performed By: #### 1 [id number] #### [facility] (DEFAULT) [address] [place] [address] Vital Signs Date Time Vital Sign Value Performing Clinician Faci lity 06-19-2024 10:40-0500 Body mass index (BMI) [Ratio] 40.02 kg/m2 Suri Parker PA Work Phone: [facility] 06-19-2024 10:40-0500 Body weight 99.25 kg Suri Parker PA Work Phone: [facility] 06-19-2024 10:40-0500 Diastolic blood pressure 74 mm[Hg] Suri Parker PA Work Phone: [facility] 06-19-2024 10:40-0500 Systolic blood pressure 110 mm[Hg] Suri Jacksboro PA Work Phone: [facility] 06-05-2024 11:46-0500 Body mass index (BMI) [Ratio] 39.69 kg/m2 Suri Jacksboro PA Work Phone: [facility] 06-05-2024 11:46-0500 Body weight 98.43 kg Suri Parker PA Work Phone: [facility] 06-05-2024 11:46-0500 Diastolic blood pressure 80 mm[Hg] Suri Parker PA Work Phone: [facility] 06-05-2024 11:46-0500 Systolic blood pressure 114 mm[Hg] Suri Jacksboro PA Work Phone: [facility] 05-22-2024 09:57-0400 Body mass index (BMI) [Ratio] 39.1 kg/m2 Jasiel Meade DO Work Phone: [facility] 05-22-2024 09:57-0400 Body weight 96.98 kg Jasiel Deshaun DO Work Phone: [facility] 05-22-2024 09:57-0400 Diastolic blood pressure 72 mm[Hg] Jasiel Deshaun DO Work Phone: [facility] 05-22-2024 09:57-0400 Systolic blood pressure 110 mm[Hg] Jasiel Deshaun DO Work Phone: [facility] 05-08-2024 09:31-0400 Body mass index (BMI) [Ratio] 38.59 kg/m2 Suri LORENZO Work Phone: [facility] 05-08-2024 09:31-0400 Body weight 95.71 kg Suri LORENZO Work Phone: [facility] 05-08-2024 09:31-0400 Diastolic blood pressure 78 mm[Hg] Suri LORENZO Work Phone: [facility] 05-08-2024 09:31-0400 Systolic blood pressure 120 mm[Hg] [...] flowsheet Suri LORENZO Work Phone: [facility] Start: 06-05-2024 End: 06-05-2024 flow sheet Suri LORENZO Work Phone: [facility] Comment on above: 32 weeks gestation o f ; Third trimester Start: 06-05-2024 End: 06-05-2024 ambulatory SURI CANALES Not Available Start: 05-22-2024 End: 05-22-2024 Bamboo flowsheet Jasiel Deshaun DO Work Phone: [facility] Start: 05-22-2024 End: 05-22-2024 Bamboo flowsheet Jasiel Deshaun DO Work Phone: [facility] Start: 05-22-2024 End: 05-22-2024 flow sheet Jasiel Deshaun DO Work Phone: [facility] Comment on above: 30 weeks gestation o f ; Third trimester ; Gestational diabetes mellitus (GDM), antepartum, gestational diabetes method of control unspecified Start: 05-22-2024 End: 05-22-2024 ambulatory JASIEL DESHAUN Not Available Start: 05-08-2024 End: 05-08-2024 Bamboo flowsheet Suri LORENZO Work Phone: [facility] Start: 05-08-2024 End: 05-08-2024 Bamboo flowsheet Suri LORENZO Work Phone: [facility] Start: 05-08-2024 End: 05-08-2024 flow sheet Suri LORENZO Work Phone: [facility] Comment on above: 28 [...] 04-10-2024 End: 04-10-2024 ambulatory JASIEL R DESHAUN [facility] Start: 03-13-2024 End: 03-13-2024 ambulatory SURI CANALES Not Available Start: 02-13-2024 End: 02-13-2024 ambulatory JASIEL DESHAUN Not Available Start: 01-17-2024 End: 01-17-2024 ambulatory SURI PARKER Not Available Start: 08-22-2023 End: 08-22-2023 ambulatory JASIEL DESHAUN Not Available Start: 07-04-2023 End: 07-04-2023 ambulatory JASIEL DESHAUN Not Available Start: 08-21-2022 End: 08-21-[address] BELLAMY [facility] Facility: Start: 08-08-2021 End: 08-09-2021 ambulatory SHANTELLE HDEZ [facility] Start: 12-21-2020 End: 12-22-2020 [facility] Start: 12-21-2020 End: 12-21-2020 Subsequent hospital [...] - Td) DTaP/Tdap/Td vaccine (7 - Td) [place], [place] Start: 10-23-2024 End: 10-23-2024 Patient encounter procedure 10/23/2024 10:20 AM EDT Office Visit [facility] [address] [place] [phone] Jasiel Meade, DO [address] [place], [place] [id number] [facility] Start: 08-25-2024 End: 08-25-2024 Patient encounter procedure 08/25/2024 9:00 AM EST Office Visit [facility] [address] [place] [id number] Jasiel Meade, DO [address] [place] [address] [facility] Start: 07-03-2024 End: 07-03-2024 Patient encounter procedure 07/03/2024 10:40 AM EST Routine [facility] [address] [place] [phone] Jasiel Meade, DO [address] [place] [address] [facility] Start: 07-02-2024 End: 07-02-2024 Professional / ancillary services management 07/02/2024 2:00 PM EST Ancillary Procedure [facility] [address] [place] [address] [facility] Start: 06-19-2024 End: [...] AM EDT Ancillary Procedure [facility] [address] [place] [address] [place] [address] [facility] Start: 05-08-2024 End: 05-08-2025 US for US OB SCAN FOR GROWTH Imaging Routine size inconsistent with dates Expected: 05/08/2024 (Approximate), Expires: 05/08/2025 [facility] Work Phone: Comment on above: Expected: 05/08/2024 (Approximate), Expires: 05/08/2025 Start: 05-08-2024 End: 05-08-2024 Patient encounter procedure [facility] BCP OB Comment on above: Arrived Start: 03-30-2024 Influenza vaccination Influenza Vacc ine (#1) [facility] Start: 03-18-2023 Screening for malign ant neoplasm of cervix Cervical cancer screen [employer] Work Phone: Start: 06-12-2021 Screening for malign ant neoplasm of cervix Cervical cancer screen [place] Start: 03-30-2021 Influenza vaccination [facility] Start: 03-30-2020 Influenza vaccination Flu vaccine (# 1) [place], [place] Start: 06-12-2019 Screening for Chlamy flaco trachomatis Chlamydia screen [place], [place] Start: 09-13-2011 Hepatitis A vaccine (2 of 2 - 2-dose series) Hepatitis A vaccine (2 of 2 - 2-dose series) [place] Start: 2007 COVID-19 Vaccine (1) COVID-19 Vaccin e (1) [facility] Phone: Start: 1995 Hepatitis C screening Hepatitis C sc reen [employer] Phone: End: 12-21-2020 Mumps Antibody, IgG Mumps Antibody, IgG Lab Routine Once for 1 Occurrences starting 12/21/2020 until 12/21/2020 [facility] Phone: Comment on above: Once for 1 Occurrenc es starting 12/21/2020 until 12/21/2020 Mumps Antibody, IgG Mumps Antibo dy, IgG Lab Routine 12/21/2020 4:27 PM EDT [facility] Phone: End: 12-21-2020 Quantiferon TB Gold Quantiferon TB Gold Microbiology Routine Once for 1 Occurrences starting 12/21/2020 until 12/21/2020 [facility] Phone: Comment on above: Once for 1 Occurrenc es starting 12/21/2020 until 12/21/2020 Quantiferon TB Gold Quantiferon TB Gold Microbiology Routine 12/21/2020 4:27 PM EDT [facility] Phone: End: 12-21-2020 Rubeola Antibody, IgG Rubeola Antibody, IgG Lab Routine Once for 1 Occurrences starting 12/21/2020 until 12/21/2020 [facility] Phone: Comment on above: Once for 1 Occurrenc es starting 12/21/2020 until 12/21/2020 Rubeola Antibody, IgG Rubeola An tibody, IgG Lab Routine 12/21/2020 4:27 PM EDT [facility] Phone: End: 12-21-2020 Varicella Zoster Antibody, IgG Varicella Zoster Antibody, IgG Lab Routine Once for 1 Occurrences starting 12/21/2020 until 12/21/2020 [facility] Phone: Comment on above: Once for 1 Occurrenc es starting 12/21/2020 until 12/21/2020 Varicella Zoster Antibody, IgG Varicella Zoster Antibody, IgG Lab Routine 12/21/2020 4:27 PM EDT [facility] Phone: Immunizations Immunization Date Immunization Notes Care Provider [facility] 06-28-2021 influenza virus vacc ine, unspecified formulation Jasiel Deshaun [employer] Work Phone: [facility] 03-09-2020 tuberculin skin test ; purified protein derivative solution, intradermal [facility] 04-28-2019 influenza, injectabl e, quadrivalent, preservative free [facility] 06-12-2018 influenza, injectabl e, quadrivalent, preservative free [facility] 05-01-2018 tuberculin skin test ; purified protein derivative solution, intradermal [facility] 09-12-2017 hepatitis B vaccine, adult dosage [facility] 04-13-2017 Human Papillomavirus 9-valent vaccine [facility] 04-10-2017 hepatitis B vaccine, adult dosage [facility] 03-07-2017 hepatitis B vaccine, adult dosage [facility] 03-07-2017 meningococcal polysaccharide (groups A, C, Y and W-135) diphtheria toxoid conjugate vaccine (MCV4P) [facility] 03-07-2017 tuberculin skin test ; purified protein derivative solution, intradermal [facility] 02-26-2017 tetanus toxoid, redu juve diphtheria toxoid, and acellular pertussis vaccine, adsorbed [facility] 02-26-2017 tuberculin skin test ; purified protein derivative solution, intradermal [place], [place] 08-13-2014 Human Papillomavirus 9-valent vaccine [place], [place] 04-01-2014 meningococcal polysaccharide (groups A, C, Y and W-135) diphtheria toxoid conjugate vaccine (MCV4P) [place], [place] 02-10-2014 Human Papillomavirus 9-valent vaccine [place], [place] Payers Date Payer Category Payer Private Health Insurance [employer] [id number] 2022 Unknown [employer] [id number] 2022-Present [address] [place] [address] [id number] 2022 Unknown [id number] 2021 Unknown [id number] 2016 Private Health Insurance SHIV FIERRO [id number] 2016-Present [phone] [address] [place] [address] [id number] 1995 Unknown [id number] [id number]. 175 1995 Unknown [id number] 2.16.840.1.783529.3.579.2. 593 1995 Unknown [id number] 2.16.840.1.361123.3.579.2. 1286 1995 Unknown [id number] 2.16.840.1.122350.3.579.2. 1259 1995 Unknown [id number] 2.16.840.1.808520.3.579.2. 9 1995 Unknown [id number] 2.16.840.1.242619.3.579.2. 1259 1995 Unknown [id number] 2.16.840.1.258838.3.579.2. 1259 1995 Unknown [id number] 2.16.840.1.355022.3.579.2. 1259 1995 Unknown [id number] 2.16.840.1.364060.3.579.2. 9 1995 Unknown [id number] 2.16.840.1.369433.3.579.2. 1259 1995 Unknown [id number] 2.16.840.1.938896.3.579.2. 1259 1995 Unknown [id number] 2.16.840.1.782539.3.579.2. 1259 1995 Unknown [id number] 2.16.840.1.018708.3.579.2. 1259 1959 Unknown [id number] Social History Date Type Detail Facility Start: 03-18-2020 End: 01-17-2024 Tobacco smoking status [facility] Never smoker [facility] Start: 03-18-2020 End: 01-17-2024 Tobacco use and exposure Never used [employer] [facility] Start: 02-05-2017 Alcohol Comment rarely [employer] [facility] Sex Assigned At Not on file [employer] [facility] Start: 1995 Sex Assigned At Female [employer] Work Phone: Start: 04-17-2024 End: 06-19-2024 Alcoholic beverage intake Ex-drinker (finding) [facility] Start: 01-17-2024 End: 04-17-2024 Alcoholic beverage intake [facility] Start: 01-17-2024 Tobacco use panel [facility] [...] Use four times daily with insulin pen. [id number] Start: 05-26-2024 End: 06-25-2024 History of Present [...] nursing note reviewed. Exam conducted with a nursing informatics analyst present. Vitals: Estimated body mass index is [...] nursing note reviewed. Exam conducted with a nursing informatics analyst present. Vitals: Estimated body mass index is [...] of Onset Diabetes Father Preston Hypertension Father Presotn SURGICAL HISTORY Past Surgical History: Procedure Laterality [...] nursing note reviewed. Exam conducted with a nursing informatics analyst present. Vitals: Estimated body mass index is [...] Garcia documented in this encounter [facility] Healthcare Evaluation note Note Date & [...] unspecified documented in this encounter [facility] Healthcare Evaluation note Note Date & Type Note Facility Evaluation note Diagnosis 32 weeks gestation of Third trimester state, incidental documented in this encounter [facility] Healthcare Evaluation note Note Date & Type Note Facility Evaluation note Diagnosis Third trimester state, incidental 34 weeks gestation of documented in this encounter [facility] Healthcare Summary Purpose Family History No Family History Records FoundNo Family History Records FoundNo Family History Records FoundNo Family History Records FoundNo Family History Records FoundNo Family History Records Found Advance Directives No Advanced Directives Records FoundDocuments on File Type Date Recorded 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 DATE CREATED AUTHOR AUTHOR'S ORGANIZ ATION 02/18/2022 [facility] DATE CREATED AUTHOR AUTHOR'S ORGANIZ ATION 08/25/2022 [facility] DATE CREATED AUTHOR AUTHOR'S ORGANIZ ATION 04/12/2024 [facility] DATE CREATED AUTHOR AUTHOR'S ORGANIZ ATION 06/22/2024 [facility] [employer] Care Teams (unrecognized sec tion and content) Vice President Relationship Specialty [place] [address] [place] [address] PCP - General Family Medicine 03/22/23 Vice President Relationship Specialty [place] [address] [place] [address] PCP - General Family Medicine 03/22/23 Vice President Relationship Specialty [place] [address] [place] [address] PCP - General Family Medicine 03/22/23 Suri Canales PA [address] [place] [address] [place] [address] PCP - Medical [employer] 07/30/22 07/29/99 Vice President Relationship Specialty [place] [address] [place] [address] PCP - General Family Medicine 03/22/23 Suri Canales PA [address] [place] [address] [place] [address] PCP - Medical [employer] 07/30/22 07/29/99 Vice President Relationship Specialty [place] [address] [place] [address] PCP - General Family Medicine 03/22/23 Suri Canales [place] [facility] [place] [address] PCP - Medical [employer] 07/30/22 07/29/99 Vice President Relationship Specialty Start [place] [address] [place] [address] PCP - General Family Medicine 03/22/23 Suri Canales PA [facility] [place], [facility] PCP - Medical [employer] 07/30/22 07/29/99 Vice President Relationship Specialty Start [place] [address] [place] [address] PCP - General Family Medicine 03/22/23 Suri Canales PA [address] [place], [place] [address]sujey [place], [facility] PCP - Medical [employer] 07/30/22 07/29/99 Vice President Relationship Specialty Start [place] [address] [place] [address] PCP - General Family Medicine 03/22/23 Suri Canales PA [facility] [place] [address] (work) PCP - Medical [employer] 07/30/22 07/29/99 Reason for Visit (unrecogniz [...] BE BASED ON THE PRIMARY CLINICAL RECORDS. [facility]. provides no warranty or guarantee of the accuracy or completeness of information in this document.
--- NOTE | 2024-07-03 08:51 | US_ITS ---
[address] [address] Patient Name: ZAKIA SEARS MRN: [facility]:[id number] date: 1995 Sex: F Assigned Patient Location: [facility] Current Patient Location: Accession/Order Number: [id number] Exam Date: 07/03/2024 09:00 Report Date: 07/03/2024 09:58 At the request of: JASIEL RAMOS Procedure: US OB BPP w non-stress EXAMINATION: US OB BPP w non-stress HISTORY: Gestational diabetes mellitus COMPARISON: No relevant comparison available. TECHNIQUE: Ultrasound biophysical profile was performed in the radiology department. non-reactive stress testing was performed by nursing staff in the birthing center. FINDINGS: BREATHING MOVEMENTS: 2 GROSS BODY MOVEMENTS: 2 TONE: 2 QUALITATIVE AMNIOTIC FLUID VOLUME: 2 PRESENTATION: CEPHALIC HEART RATE: 163.64 bpm AMNIOTIC FLUID VOLUME: [2 cm GESTATIONAL AGE: 36 weeks 4 days US/US OB BPP w non-stress IMPRESSION: Total biophysical profile score: 8 Electronically authenticated by: KAJAL MARINELLI Date: 07/03/2024 09:58
[2024-07-03 09:15] VITALS: BP 127/71; PULSE 90
== END 2024-07-03 09:40 | disposition home or self-care (01) ==
LOC: FBCO 06:30 → FBC 08:47
PROVIDERS: Visit Provider Obstetrics & Gynecology
DX: O24.419 Gestational diabetes mellitus in pregnancy, unspecified control (principal); Z3A.36 36 weeks gestation of pregnancy
CPT/HCPCS: 76818; 87081; 87150

== ENCOUNTER 2024-07-03 21:14 | Outpatient (REF) | payer OTHER, SELFPAY ==
--- OUTSIDE RECORDS SUMMARY | 2024-07-03 21:21 | XMS_ITS | CCD ---
Author Organization [facility] Care Team Providers Care Supply Chain Technician Name Role Phone Shantelle Dean Primary Care [...] Healthcare Nitrite, UA Negative Negative - Positive [facility] pH, UA 7 5 - 9 [facility] Protein, UA Negative Negative - 1999(20) ++++ mg/dL [facility] Healthcare Spec Grav, UA 1.015 1 - 1.03 [facility] care Urobilinogen, UA 0.2 0.2 - 12 mg/dL [facility] Healthcare [facility] Urinalysis macro (dipstick) panel (U)on 05-22-2024 Bilirubin, UA Negative Negative - 4(70) +++ mg/dL [facility] Blood, UA Negative Negative - 50 Bib/mcL [facility] Healthcare Clarity, UA Clear [facility] Color, UA Yellow [facility] Glucose, UA Negative Negative - 1999(110) ++++ mg/dL [facility] Interpretation and review of laboratory [...] Spec Grav, UA 1.015 1 - 1.03 [facility] Urobilinogen, UA 0.2 0.2 - 12 mg/dL [facility]inalysis macro (dipstick) panel (U)on 05-08-2024 Bilirubin, UA Negative Negative - 4(70) +++ mg/dL [facility] Blood, UA Negative Negative - 50 Bib/mcL [facility] Clarity, UA Clear [facility] re Color, UA Yellow [facility] e Glucose, UA Negative Negative - 1999(110) ++++ mg/dL [facility] Interpretation and review of laboratory results Abnormal [facility] Ketones, UA Negative Negative - 160(16) ++++ mg/dL [facility] Leukocytes, UA Positive Negative - 500+++ Alvaro/mcL [facility] Comment on above: small Nitrite, UA Negative Negative - Positive [facility] pH, UA 7.0 5 - 9 [facility] Protein, UA Negative Negative - 1999(20) ++++ mg/dL [facility] Spec Grav, UA 1.020 1 - 1.03 [facility] Urobilinogen, UA 0.2 0.2 - 12 mg/dL [facility] GLUCOSE TOLERANCE 3 HOURon 1 GLUCOSE TOLERANCE 3 HOUR High mg/dL [facility] Comment on above: GLU FAST 97H (<95) C ol: 05/01/24 0722 GLU 1HR 173 (<180) Col: 05/01/24 0823 GLU 2HR 162H (<155) Col: 05/01/24 0924 GLU 3HR 114 (<140) Col: 05/01/24 1022 Interpretation and review of laboratory results Abnormal [facility] PAP ACOG PANEL 2: 21 to 29on 08-25-2022 . . Normal [facility] Comment on above: Performed By: #### 4 [id number] #### [facility] [address] [address] [address] Matias Shukla Age Gdln ACOG Testing - Normal [facility] Comment on above: Performed By: #### 4 [id number] #### [facility] [address] [place], [place] [address] Dr. Matias Shukla DIAGNOSIS: Comment Normal [facility] Comment on above: Result Comment: NEGA TIVE FOR INTRAEPITHELIAL LESION OR MALIGNANCY. Performed By: #### 4 [id number] #### [facility] [address] [place] [address] Dr. Matias Shukla Methodology: Comment [facility] Comment on above: Result Comment: This liquid based ThinPrep(R) pap test was screened with the use of an image guided system. Performed By: #### 4 [id number] #### [facility] [address] [place] [address] Dr. Matias Shukla Note: Comment Normal [facility] Comment on above: Result Comment: The Pap smear is a screening test designed to aid in the detection of premalignant and malignant conditions of the uterine cervix. It is not a diagnostic procedure and should not be used as the sole means of detecting cervical cancer. Both false-positive and false-negative reports do occur. . Performed By: #### 4 [id number] #### [facility] [address] [place] [address] Dr. Matias Shukla Performed by: Comment Normal [facility] Comment on above: Result Comment: Monika Prieto, Flat Bed Knitter (ASCP) Performed By: #### 4 [id number] #### [facility] [address] [place] [address] Dr. Matias Shukla Reflex Criteria: Comment [facility] Comment on above: Result Comment: The HPV DNA reflex criteria were not met with this specimen result therefore, no HPV testing was performed. . Performed By: #### 4 [id number] #### [facility] [address] [place] [address] Dr. Matias Shukla Specimen adequacy: Comment Normal [facility] Comment on above: Result Comment: Sati sfactory for evaluation. Endocervical and/or squamous metaplastic cells (endocervical component) are present. Performed By: #### 4 [id number] #### [facility] [address] [place] [address] Dr. Matias Shukla MUMPS IGG BLDon 02-07-2022 MUMPS IGG 1.14 Normal [facility] Comment on above: Result Comment: RAN IN TRIPLICATE NORMAL RANGES: < OR = 0.9O NEGATIVE ; NO DETECTABLE IgG ANTIBODY TO MUMPS 0.91 - 1.09 EQUIVOCAL; REPEAT TESTING SUGGESTED > OR = 1.10 POSITIVE ; INDICATES PRESENCE OF DETECTABLE IgG ANTIBODY TO MUMPS Performed By: #### 1 0055, [id number], [id number], [id number] #### [facility] [address] RUBELLAon 02-07-2022 RUBELLA 1.73 Normal [facility] Comment on above: Result Comment: NORM AL RANGES: < OR = 0.9O NEGATIVE ; NO DETECTABLE IgG ANTIBODY TO RUBELLA 0.91 - 1.09 EQUIVOCAL; REPEAT TESTING SUGGESTED > OR = 1.10 POSITIVE ; INDICATES PRESENCE OF DETECTABLE IgG ANTIBODY TO RUBELLA VIRUS Performed By: #### 1 0055, 01959, [id number], [id number] #### [facility] [address] RUBEOLA MEASLES IGGon 2021 RUBEO IGG 4.62 Normal [facility] Comment on above: Result Comment: NORM AL RANGES: < OR = 0.9O NEGATIVE ; NO DETECTABLE IgG ANTIBODY TO RUBEOLA 0.91 - 1.09 EQUIVOCAL; REPEAT TESTING SUGGESTED > OR = 1.10 POSITIVE ; INDICATES PRESENCE OF DETECTABLE IgG ANTIBODY TO RUBEOLA Performed By: #### 1 0055, 60157, 08809, 42481 #### [facility] [address] TB QUANTIFERON PLUSon 2021 MITOGEN MINUS NIL 8.15 IU/mL Normal [facility] Comment on above: Performed By: #### 3 1592 #### [facility] [address] NIL 0.03 IU/mL Normal [facility] Comment on above: Performed By: #### 3 1592 #### [facility] [address] TB QUANTIFERON Negative Normal NEGATIVE [facility] Comment on above: Result Comment: Eric tiferon TB Gold Interpretation (IU/mL): NEGATIVE: M. tuberculosis infection not likely. Nil: <=8.0 TB1 Antigen minus Nil (HN1SA-CDU): <0.35 OR >=0.35; and <25% of Nil value. TB2 Antigen minus Nil (CS6GE-MHU): <0.35 OR >=0.35; and <25% of Nil [...] (https://www.cdc.gov/tb/publications/guidlines/default.htm Performed By: #### 3 1592 #### [facility] [address] [place] [address], [facility] TB1 AG 0.03 IU/mL Normal [facility] Comment on above: Performed By: #### 3 1592 #### [facility] [address] [place] [address], [facility] TB1 AG MINUS NIL 0.00 IU/mL Normal [facility] Comment on above: Performed By: #### 3 1592 #### [facility] [address] [place] [address], [facility] TB2 AG 0.04 IU/mL Normal [facility] Comment on above: Performed By: #### 3 1592 #### [facility] [address] [place] [address], [facility] TB2 AG MINUS NIL 0.01 IU/mL Normal [facility] Comment on above: Performed By: #### 3 1592 #### [facility] [address] [place] [address], [facility] VARICELLA ZOSTER IGGon 02-07 VARICELLA IGG 2.60 Normal [facility] Comment on above: Result Comment: NORM AL RANGES: < OR = 0.9O NEGATIVE ; NO DETECTABLE IgG ANTIBODY TO VARICELLA-ZOSTER VIRUS 0.91 - 1.09 EQUIVOCAL; REPEAT TESTING SUGGESTED > OR = 1.10 POSITIVE ; INDICATES PRESENCE OF DETECTABLE IgG ANTIBODY TO VARICELLA-ZOSTER VIRUS Performed By: #### 1 0055, 54508, 32720, 23120 #### [facility] Esha WIGGINS. [address] HPV DNA High Riskon 08-19-19 22 HPV Interp [facility] Comment on above: Result Comment: This [...] purposes. Performed By: #### H PVH #### [address] [address] Benefits Administrator: Rickey Watson MD HPV Type 16 Not detected [facility] Comment on above: Performed By: #### H PVH #### [address] [address] Benefits Administrator: Rickey Watson MD HPV Type 18 Not detected [facility] Comment on above: Performed By: #### H PVH #### [facility] [address] [place] [address] Benefits Administrator: Rickey Watson MD Other High Risk HPV Not detected [facility] Comment on above: Performed By: #### H PVH #### [facility] [address] [place] [address] Benefits Administrator: Rickey Watson MD HPV DNA High Riskon 08-18-19 Source .GENITAL - NOT SPECIFIED Normal [facility] Comment on above: Performed By: #### H PVH #### [address] [address] Benefits Administrator: Rickey Watson MD HPV Sample .THIN PREP Normal [facility] Comment on above: Performed By: #### H PVH #### [address] [address] Benefits Administrator: Rickey Watson MD Chlamydia/GC DNA, TPon 08-10 Chlamydia Probe, TP Negative Normal NEG [facility] Comment on above: Result Comment: CHLA MYDIA [...] Performed By: #### C YTCGP #### [address] [address] Benefits Administrator: Rickey Watson MD Gonorrhea Probe, TP Negative Normal NEG [facility] Comment on above: Result Comment: NEIS SERIA [...] Performed By: #### C YTCGP #### [address] [address] Benefits Administrator: Rickey Watson MD Cytologyon 08-08-2021 Cytology (NOTE) INTERPRETATION Cervical material, (ThinPrep vial, Imaging-assisted review): Specimen Adequacy: Satisfactory for evaluation. - Endocervical/transfor mation zone component present. - Scant cellularity. Descriptive Diagnosis: Atypical squamous cells of undetermined significance (ASC-US). Flat Bed Knitter: AMANDA Michaels M.D. Electronically Signed Out rdd/08/18/2021 Amendments Originally Reported As: Procedure/Addendum Source: Clinical History LMP: Patient Name: Med Rec: Path Number: Fax: Normal [facility] Comment on above: Performed By: #### P PPVP #### [address] [id number] Benefits Administrator: Rickey Watson MD QuantiFERON TBon 12-24-2020 Quanti Binu minus NIL 8.10 IU/mL [facility] Comment on above: Performed By: #### R UBI, LUIZ, MARITZA, VZI #### [facility] [facility] [address] [place] [address] [phone] Benefits Administrator: Rickey Watson MD #### AQF #### [facility] [address] [place] [address] Benefits Administrator: Mark Grossman MD Quanti TB Gold Plus Negative Normal Negative [facility] Comment on above: Result Comment: (NOT E) [...] Mycobacterium tuberculosis Infection --- [place], 2010 (http://www.cdc.gov/mmwr/preview/mmwrhtml/vt3636p7.htm), for more information concerning test performance in low-prevalence populations and use in occupational screening. Performed By: #### R LUIZ MCKEON, MARITZA, VZI #### [facility] [address] [place], [place] [phone] Benefits Administrator: Rickey Watson MD #### AQF #### [employer] [address] [place] [address] Benefits Administrator: Mark Grossman MD Quanti TB1 minus NIL 0.00 IU/mL Normal 0.00-0.34 [facility] Comment on above: Performed By: #### R LUIZ MCKEON, MARITZA, VZI #### [facility] [address] [place], [place] [phone] Benefits Administrator: Rickey Watson MD #### AQF #### [facility] [employer] [address] [place] [address] Benefits Administrator: Mark Grossman MD Quanti TB2 minus NIL 0.01 IU/mL Normal 0.00-0.34 [facility] Comment on above: Performed By: #### R LUIZ MCKEON, MARITZA, VZI #### [facility] [address] [place] [address] Benefits Administrator: Rickey Watson MD #### AQF #### [facility] [employer] [address] [place] [address] Benefits Administrator: aMrk Grossman MD QuantiFERON NIL 0.01 IU/mL Normal [facility] Comment on above: Result Comment: (NOT E) Performed By: [employer] [address] [place] [address] Shooter Helper: Carolyn Wei MD Performed By: #### R UBI, LUIZ, MARITZA, VZI #### [address] [phone] Benefits Administrator: Rickey Watson MD #### AQF #### [address] [id number] Benefits Administrator: Mark Grossman MD Measles (Rubeola) Imon 12-22 Measles (Rubeola) Im 3.68 Normal >1.09 [facility] Comment on above: Result Comment: Interpretation: IMMUNE Reference Range: <0.91 Not Immune 0.91-1.09 Equivocal >1.09 Immune Performed By: #### R UBI, LUIZ, MARITZA, VZI #### [address] [phone] Benefits Administrator: Rickey Watson MD #### AQF #### [address] [phone] Benefits Administrator: Mark Grossman MD Mumps,Immun,Abon 12-22-2020 Mumps,Immun,Ab 1.16 Normal >1.09 [facility] Comment on above: Result Comment: Interpretation: IMMUNE Reference Range: <0.91 Not Immune 0.91-1.09 Equivocal >1.09 Immune Performed By: #### R UBI, LUIZ, MARITZA, VZI #### [place] [address] Benefits Administrator: Rickey Watson MD #### AQF #### [address] [phone] Benefits Administrator: Mark Grossman MD VZ Immunityon 12-22-2020 VZ Immunity 2.24 Normal >1.09 [facility] Comment on above: Result Comment: Interpretation: IMMUNE Reference Range: <0.91 Not Immune 0.91-1.09 Equivocal >1.09 Immune Performed By: #### R UBI, LUIZ, MARITZA, VZI #### [address] [place], [place] [phone] Benefits Administrator: Rickey Watson MD #### AQF #### [facility] [address] [place] [address] Benefits Administrator: Mark Grossman MD Rubella Ab, IgGon 12-21-2020 Rubella Ab, IgG 16.2 IU/mL Normal [facility] Comment on above: Result Comment: REFERENCE RANGE: <5.0 NON-REACTIVE (non-immune) 5.0 TO 9.9 EQUIVOCAL >=10.0 REACTIVE (immune) Performed By: #### R UBI, LUIZ, MARITZA, VZI #### [facility] [address] [place] [address] [phone] Benefits Administrator: Rickey Watson MD #### AQF #### [facility] [address] [place] [address] Benefits Administrator: Mark Grossman MD Rubella antibody, IgGOrdered By: Jimmy Meehan on 12-21-2020 Rubella virus IgG Ql (S) 16.2 IU/mL [facility] Phone: Comment on above: REFERENCE RANGE: <5.0 NON-REACTIVE (non-immune) 5.0 TO 9.9 EQUIVOCAL >=10.0 REACTIVE (immune) [facility] Phone: Lab - Toxicology Resultson 0 03-11-2020 Lab - Toxicology Results [id number] Normal [facility] QuantiFERON TB Gold (In Tube ) LCon 03-08-2020 QuantiFERON Criteria LC Comment [facility] Comment on above: Result Comment: The QuantiFERON-TB Gold Plus result is determined by subtracting the Nil value from either TB antigen (Ag) tube. The mitogen tube serves as a control for the test. Performed By: #### 4 [id number], [id number] #### [facility] (DEFAULT) [address] [place] [address] QuantiFERON M. tuberculosis1 Ag Value LC 0.09 IU/mL [facility] Comment on above: Performed By: #### 4 [id number], [id number] #### [facility] (DEFAULT) [address] [place] [address] QuantiFERON M. tuberculosis2 Ag Value LC 0.08 IU/mL [facility] Comment on above: Performed By: #### 4 [id number], [id number] #### [facility] (DEFAULT) [address] [place] [address] QuantiFERON Mitogen Value LC >10.00 [facility] Comment on above: Result Comment: Perf ormed At: [address] [id number] Kat Arevalo PhD Ph:[phone] Performed By: #### 4 [id number], [id number] #### [facility] (DEFAULT) [address] [place] [address] QuantiFERON Nil Value LC 0.01 IU/mL [facility] Comment on above: Performed By: #### 4 [id number], [id number] #### [facility] (DEFAULT) [address] [place] [address] QuantiFERON-TB Gold Plus LCo n 03-08-2020 QuantiFERON-TB Gold Plus LC Negative Negative [facility] Comment on above: Result Comment: Perf ormed At: [address] [id number] Kat Arevalo PhD Ph:[phone] Performed By: #### 4 [id number], [id number] #### [facility] (DEFAULT) [address] [place] [address] QuantiFERON Incubation LC Incubation performed. [facility] Comment on above: Result Comment: Perf ormed At: [address] [id number] Kat Arevalo PhD Ph:[phone] Performed By: #### 4 [id number], [id number] #### [facility] (DEFAULT) [address] [place] [address] HBSab Qnt LCon 03-05-2020 Hep B Surf Ab Quant LC 145.6 mIU/mL Immunity>9.9 [facility] Comment on above: Result Comment: Stat us of Immunity Anti-HBs Level Inconsistent with Immunity 0.0 - 9.9 Consistent with Immunity >9.9 Performed At: [facility] [address] [place], [place] [id number] Kat Arevalo PhD Ph:[phone] Performed By: #### 1 [id number], [id number] #### [facility] (DEFAULT) [address] [place] [address] Measles/Mumps/Rubella Immuni ty on 03-05-2020 Mumps Abs, IgG LC 69.5 AU/mL Immune >10.9 [facility] Comment on above: Result Comment: Nega tive <9.0 Equivocal 9.0 - 10.9 Positive >10.9 A positive result generally indicates past exposure to Mumps virus or previous vaccination. Performed At: [facility] [address] [place] [id number] Kat Arevalo PhD Ph:[phone] Performed By: #### 1 [id number], [id number] #### [facility] (DEFAULT) [address] [place] [address] Rubella Antibodies, IgG LC 1.75 index Immune >0.99 [facility] Comment on above: Result Comment: Non- immune <0.90 Equivocal 0.90 - 0.99 Immune >0.99 Performed By: #### 1 [id number], [id number] #### [facility] (DEFAULT) [address] [place] [address] Rubeola Ab, IgG, EIA LC >300.0 Immune >16.4 [facility] Comment on above: Result Comment: Nega tive <13.5 Equivocal 13.5 - 16.4 Positive >16.4 Presence of antibodies to Rubeola is presumptive evidence of immunity except when acute infection is suspected. Performed By: #### 1 [id number], [id number] #### [facility] (DEFAULT) [place] [address] Nicotine Metabolite, Urine L Con 03-05-2020 Cotinine LC Negative [id number] [facility] Comment on above: Result Comment: Perf ormed At: [facility] [place] [address] [place], [place] [id number] Jose Schwartz PhD Ph:[phone] Performed By: #### 1 [id number] #### [facility] (DEFAULT) [address] [place] [address] Vital Signs Date Time Vital Sign Value Performing Clinician Faci lity 06-19-2024 10:40-0500 Body mass index (BMI) [Ratio] 40.02 kg/m2 Suri Parker PA Work Phone: [facility] 06-19-2024 10:40-0500 Body weight 99.25 kg Suri Parker PA Work Phone: [facility] 06-19-2024 10:40-0500 Diastolic blood pressure 74 mm[Hg] Suri Parker PA Work Phone: [facility] 06-19-2024 10:40-0500 Systolic blood pressure 110 mm[Hg] Suri [place] PA Work Phone: [facility] 06-05-2024 11:46-0500 Body mass index (BMI) [Ratio] 39.69 kg/m2 Suri [place] PA Work Phone: [facility] 06-05-2024 11:46-0500 Body weight 98.43 kg Suri Parker PA Work Phone: [facility] 06-05-2024 11:46-0500 Diastolic blood pressure 80 mm[Hg] Suri Parker PA Work Phone: [facility] 06-05-2024 11:46-0500 Systolic blood pressure 114 mm[Hg] Suri [place] PA Work Phone: [facility] 05-22-2024 09:57-0400 Body mass index (BMI) [Ratio] 39.1 kg/m2 Jasiel Meade DO Work Phone: [facility] 05-22-2024 09:57-0400 Body weight 96.98 kg Jasiel Deshaun DO Work Phone: [facility] 05-22-2024 09:57-0400 Diastolic blood pressure 72 mm[Hg] Jasiel Deshaun DO Work Phone: [facility] 05-22-2024 09:57-0400 Systolic blood pressure 110 mm[Hg] Jasiel Deshaun DO Work Phone: [facility] 05-08-2024 09:31-0400 Body mass index (BMI) [Ratio] 38.59 kg/m2 Suri LORENZO Work Phone: [facility] 05-08-2024 09:31-0400 Body weight 95.71 kg Suri LORENZO Work Phone: [facility] 05-08-2024 09:31-0400 Diastolic blood pressure 78 mm[Hg] Suri LORENZO Work Phone: [facility] 05-08-2024 09:31-0400 Systolic blood pressure 120 [...] 06-05-2024 Bamboo flowsheet Suri LORENZO Work Phone: [facility] Start: 06-05-2024 End: 06-05-2024 flow sheet Suri LORENZO Work Phone: [facility] Comment on above: 32 weeks gestation o f ; Third trimester Start: 06-05-2024 End: 06-05-2024 ambulatory SURI CANALES Not Available Start: 05-22-2024 End: 05-22-2024 Bamboo flowsheet Jasiel Deshaun DO Work Phone: [facility] Start: 05-22-2024 End: 05-22-2024 Bamboo flowsheet Jasiel Deshaun DO Work Phone: [facility] Start: 05-22-2024 End: 05-22-2024 flow sheet Jasiel Deshaun DO Work Phone: [facility] Comment on above: 30 weeks gestation o f ; Third trimester ; Gestational diabetes mellitus (GDM), antepartum, gestational diabetes method of control unspecified Start: 05-22-2024 End: 05-22-2024 ambulatory JASIEL DESHAUN Not Available Start: 05-08-2024 End: 05-08-2024 Bamboo flowsheet Suri LORENZO Work Phone: [facility] Start: 05-08-2024 End: 05-08-2024 Bamboo flowsheet Suri LORENZO Work Phone: [facility] Start: 05-08-2024 End: 05-08-2024 flow sheet Suri LORENZO Work Phone: [facility] Comment on above: 28 [...] 04-10-2024 End: 04-10-2024 ambulatory JASIEL R DESHAUN [facility] Start: 03-13-2024 End: 03-13-2024 ambulatory SURI CANALES Not Available Start: 02-13-2024 End: 02-13-2024 ambulatory JASIEL DESHAUN Not Available Start: 01-17-2024 End: 01-17-2024 ambulatory SURI PARKER Not Available Start: 08-22-2023 End: 08-22-2023 ambulatory JASIEL DESHAUN Not Available Start: 07-04-2023 End: 07-04-2023 ambulatory JASIEL DESHAUN Not Available Start: 08-21-2022 End: 08-21-[address] [facility]: Start: 08-08-2021 End: 08-09-2021 ambulatory SHANTELLE HDEZ [facility] Start: 12-21-2020 End: 12-22-2020 [facility] Start: 12-21-2020 End: 12-21-2020 Subsequent [...] - Td) DTaP/Tdap/Td vaccine (7 - Td) [place] Start: 10-23-2024 End: 10-23-2024 Patient encounter procedure 10/23/2024 10:20 AM EDT Office Visit [facility] [address] [place] [id number] Jasiel Meade, DO [address] [place], [place] [id number] [facility] Start: 08-25-2024 End: 08-25-2024 Patient encounter procedure 08/25/2024 9:00 AM EST Office Visit [facility] [address] [place] [id number] Jasiel Meade, DO [address] [place] [address] [facility] Start: 07-03-2024 End: 07-03-2024 Patient encounter procedure 07/03/2024 10:40 AM EST Routine [facility] [address] [place] [id number] Jasiel Meade, DO [address] [place] [address] [facility] Start: 07-02-2024 End: 07-02-2024 Professional / ancillary services management 07/02/2024 2:00 PM EST Ancillary Procedure [facility] [address] [place] [phone] [facility] Start: 06-19-2024 End: [...] AM EDT Ancillary Procedure [facility] [address] [place] [address] [place] [address] [facility] Start: 05-08-2024 End: 05-08-2025 US for US OB SCAN FOR GROWTH Imaging Routine size inconsistent with dates Expected: 05/08/2024 (Approximate), Expires: 05/08/2025 [facility] Work Phone: Comment on above: Expected: 05/08/2024 (Approximate), Expires: 05/08/2025 Start: 05-08-2024 End: 05-08-2024 Patient encounter procedure [facility] OB Comment on above: Arrived Start: 03-30-2024 Influenza vaccination Influenza Vacc ine (#1) [facility] Start: 03-18-2023 Screening for malign ant neoplasm of cervix Cervical cancer screen [employer] Work Phone: Start: 06-12-2021 Screening for malign ant neoplasm of cervix Cervical cancer screen [place] Start: 03-30-2021 Influenza vaccination Flu vacc ine (Season Ended[facility]: Start: 03-30-2020 Influenza vaccination Flu vaccine (# 1) [place] Start: 06-12-2019 Screening for Chlamy flaco trachomatis Chlamydia screen [place] Start: 09-13-2011 Hepatitis A vaccine (2 of 2 - 2-dose series) Hepatitis A vaccine (2 of 2 - 2-dose series) [place] Start: 2007 COVID-19 Vaccine (1) COVID-19 Vaccin e (1) [facility] Phone: Start: 1995 Hepatitis C screening Hepatitis C sc reen [employer] Phone: End: 12-21-2020 Mumps Antibody, IgG Mumps Antibody, IgG Lab Routine Once for 1 Occurrences starting 12/21/2020 until 12/21/2020 [facility] Phone: Comment on above: Once for 1 Occurrenc es starting 12/21/2020 until 12/21/2020 Mumps Antibody, IgG Mumps Antibo dy, IgG Lab Routine 12/21/2020 4:27 PM EDT [facility] Phone: End: 12-21-2020 Quantiferon TB Gold Quantiferon TB Gold Microbiology Routine Once for 1 Occurrences starting 12/21/2020 until 12/21/2020 [employer] Phone: Comment on above: Once for 1 Occurrenc es starting 12/21/2020 until 12/21/2020 Quantiferon TB Gold Quantiferon TB Gold Microbiology Routine 12/21/2020 4:27 PM EDT [facility] Phone: End: 12-21-2020 Rubeola Antibody, IgG Rubeola Antibody, IgG Lab Routine Once for 1 Occurrences starting 12/21/2020 until 12/21/2020 [employer] Phone: Comment on above: Once for 1 Occurrenc es starting 12/21/2020 until 12/21/2020 Rubeola Antibody, IgG Rubeola An tibody, IgG Lab Routine 12/21/2020 4:27 PM EDT [employer] Phone: End: 12-21-2020 Varicella Zoster Antibody, IgG Varicella Zoster Antibody, IgG Lab Routine Once for 1 Occurrences starting 12/21/2020 until 12/21/2020 [facility] Phone: Comment on above: Once for 1 Occurrenc es starting 12/21/2020 until 12/21/2020 Varicella Zoster Antibody, IgG Varicella Zoster Antibody, IgG Lab Routine 12/21/2020 4:27 PM EDT [facility] Phone: Immunizations Immunization Date Immunization Notes Care Provider [facility] 06-28-2021 influenza virus vacc ine, unspecified formulation Jasiel [facility] [employer] Work Phone: [facility] 03-09-2020 tuberculin skin test ; purified protein derivative solution, intradermal [facility] [place] 04-28-2019 influenza, injectabl e, quadrivalent, preservative free [facility] 06-12-2018 influenza, injectabl e, quadrivalent, preservative free [facility] 05-01-2018 tuberculin skin test ; purified protein derivative solution, intradermal [facility] 09-12-2017 hepatitis B vaccine, adult dosage [facility] 04-13-2017 Human Papillomavirus 9-valent vaccine [facility] 04-10-2017 hepatitis B vaccine, adult dosage [facility] 03-07-2017 hepatitis B vaccine, adult dosage [facility] 03-07-2017 meningococcal polysaccharide (groups A, C, Y and W-135) diphtheria toxoid conjugate vaccine (MCV4P) [facility] 03-07-2017 tuberculin skin test ; purified protein derivative solution, intradermal [facility] [place] 02-26-2017 tetanus toxoid, redu juve diphtheria toxoid, and acellular pertussis vaccine, adsorbed [facility] 02-26-2017 tuberculin skin test ; purified protein derivative solution, intradermal [place], [place] 08-13-2014 Human Papillomavirus 9-valent vaccine [place], [place] 04-01-2014 meningococcal polysaccharide (groups A, C, Y and W-135) diphtheria toxoid conjugate vaccine (MCV4P) [place], [place] 02-10-2014 Human Papillomavirus 9-valent vaccine [place], [place] Payers Date Payer Category Payer Private Health Insurance [employer] [id number] 2022 Unknown [employer] [id number] 2022-Present [address] [place] [address] [id number] 2022 Unknown [id number] 2021 Unknown [id number] 2016 Private Health Insurance SHIV FIERRO [id number] 2016-Present [phone] [address] [place] [address] [id number] 1995 Unknown [id number] 2.16.840.1.301925.3.579.2. 175 1995 Unknown [id number] 2.16.840.1.564890.3.579.2. 593 1995 Unknown [id number] 2.16.840.1.841440.3.579.2. 1286 1995 Unknown [id number] 2.16.840.1.632794.3.579.2. 1259 1995 Unknown [id number] 2.16.840.1.788741.3.579.2. 9 1995 Unknown [id number] 2.16.840.1.485536.3.579.2. 1259 1995 Unknown [id number] 2.16.840.1.839430.3.579.2. 1259 1995 Unknown [id number] 2.16.840.1.461599.3.579.2. 1259 1995 Unknown [id number] 2.16.840.1.031974.3.579.2. 9 1995 Unknown [id number] 2.16.840.1.804737.3.579.2. 1259 1995 Unknown [id number] 2.16.840.1.541121.3.579.2. 1259 1995 Unknown [id number] 2.16.840.1.975165.3.579.2. 1259 1995 Unknown [id number] 2.16.840.1.272798.3.579.2. 1259 1959 Unknown [id number] Social History Date Type Detail Facility Start: 03-18-2020 End: 01-17-2024 Tobacco smoking status [facility] Never smoker [facility] Start: 03-18-2020 End: 01-17-2024 Tobacco use and exposure Never used [facility] [employer] Start: 02-05-2017 Alcohol Comment rarely [employer] [employer] Sex Assigned At Not on file [employer] [facility] Start: 1995 Sex Assigned At Female [employer] Work Phone: Start: 04-17-2024 End: 06-19-2024 Alcoholic beverage intake Ex-drinker (finding) [facility] Start: 01-17-2024 End: 04-17-2024 Alcoholic beverage intake [facility] Start: 01-17-2024 Tobacco use panel [facility] [...] Use four times daily with insulin pen. [id number] Start: 05-26-2024 End: 06-25-2024 History of Present [...] nursing note reviewed. Exam conducted with a electric motorman present. Vitals: Estimated body mass index is [...] nursing note reviewed. Exam conducted with a electric motorman present. Vitals: Estimated body mass index is [...] nursing note reviewed. Exam conducted with a electric motorman present. Vitals: Estimated body mass index is [...] of: BJ Garcia documented in this encounter [facility] Evaluation note Note Date & [...] of control unspecified documented in this encounter [facility] Evaluation note Note Date & Type Note Facility Evaluation note Diagnosis 32 weeks gestation of Third trimester state, incidental documented in this encounter [facility] Evaluation note Note Date & Type Note Facility Evaluation note Diagnosis Third trimester state, incidental 34 weeks gestation of documented in this encounter [facility] Summary Purpose Family History No Family History Records FoundNo Family History Records FoundNo Family History Records FoundNo Family History Records FoundNo Family History Records FoundNo Family History Records Found Advance Directives No Advanced Directives Records FoundDocuments on File Type Date 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 ACP-Advance Directive ACP-Power of Rental Manager Additional Source Comments INFORMATION SOURCE (unrecogn ized section and content) DATE CREATED AUTHOR 03/12/2020 [facility] DATE CREATED AUTHOR AUTHOR'S ORGANIZ ATION 08/20/2021 [facility] DATE CREATED AUTHOR AUTHOR'S ORGANIZ ATION 02/18/2022 [facility] DATE CREATED AUTHOR AUTHOR'S ORGANIZ ATION 08/25/2022 [facility] DATE CREATED AUTHOR AUTHOR'S ORGANIZ ATION 04/12/2024 [facility] DATE CREATED AUTHOR AUTHOR'S ORGANIZ ATION 06/22/2024 [facility] [employer] Care Teams (unrecognized sec tion and content) Supply Chain Technician Relationship Specialty [place] [address] [place] [address] PCP - General Family Medicine 03/22/23 Supply Chain Technician Relationship Specialty [place] [address] [place] [address] PCP - General Family Medicine 03/22/23 Supply Chain Technician Relationship Specialty [place] [address] [place] [address] PCP - General Family Medicine 03/22/23 Suri Canales PA [address] [place] [address] [place] [address] PCP - Medical [employer] 07/30/22 07/29/99 Supply Chain Technician Relationship Specialty [place] [address] [place] [address] PCP - General Family Medicine 03/22/23 Suri Canales PA [address] [place] [address] [place] [address] PCP - Medical [employer] 07/30/22 07/29/99 Supply Chain Technician Relationship Specialty [place] [address] [place] [address] PCP - General Family Medicine 03/22/23 Suri Canales PA [facility] [place] [address] PCP - Medical [employer] 07/30/22 07/29/99 Supply Chain Technician Relationship Specialty [place] [address] [place] [address] PCP - General Family Medicine 03/22/23 Suri Canales PA [facility] [place], [facility] PCP - Medical [employer] 07/30/22 07/29/99 Supply Chain Technician Relationship Specialty [place] [address] [place] [address] PCP - General Family Medicine 03/22/23 Suri Canales PA [address] [place], [place] [address]sujey [place], [facility] PCP - Medical [employer] 07/30/22 07/29/99 Supply Chain Technician Relationship Specialty [place] [address] [place] [address] PCP - General Family Medicine 03/22/23 Suri Canales PA [facility] [place] [address] (work) PCP - Medical [employer] 07/30/22 07/29/99 Reason for Visit (unrecogniz [...] BE BASED ON THE PRIMARY CLINICAL RECORDS. [employer] [facility]. provides no warranty or guarantee of the accuracy or completeness of information in this document.
== END 2024-07-03 21:15 | disposition home or self-care (01) ==
LOC: LAB 21:14
PROVIDERS: Visit Provider Obstetrics & Gynecology
DX: Z34.93 Encounter for supervision of normal pregnancy, unspecified, third trimester (principal)
CPT/HCPCS: 87081; 87150

== ENCOUNTER 2024-07-07 06:23 | Outpatient (OUT) | payer OTHER, SELFPAY ==
[2024-07-07 17:22] VITALS: BP 122/76; PULSE 103
== END 2024-07-07 17:45 | disposition home or self-care (01) ==
LOC: FBCO 06:24 → FBC 17:19
PROVIDERS: Visit Provider Obstetrics & Gynecology
DX: O24.419 Gestational diabetes mellitus in pregnancy, unspecified control (principal); Z3A.37 37 weeks gestation of pregnancy
CPT/HCPCS: 59025

== ENCOUNTER 2024-07-10 06:18 | Outpatient (OUT) | payer OTHER, SELFPAY ==
--- OUTSIDE RECORDS SUMMARY | 2024-07-10 06:22 | XMS_ITS | CCD ---
Author Organization [facility] Care Team Providers Care 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 Name Role Phone Shantelle Dean Primary Care [...] Active insulin glargine 100 unt/ml injectable solution (8 sources) Insulin Analog Start: 05-26-2024 End: 06-25-2024 inject 10 [IU] by subcutaneous injection in the evening insulin glargine (Lantus) 100 UNIT/ML injection Indications: Hyperglycemia , GESTATIONAL DIABETES Inject 10 Units under the skin in the evening 3 mL 05/26/2024 Active magnesium oxide 400 mg oral tablet (15 sources) take 1 tablet by mouth in [...] 05-08-2024 Episodic Other and delivery including normal (10 sources) Third trimester ; Translations: [Encounter for [...] [34 weeks gestation of ] 06-19-2024 Episodic Residual codes; unclassified (2 sources) Gestation period, 36 weeks; Translations: [36 weeks gestation of ] 07-03-2024 Episodic Past or Other Problems Problem Classification Problem Date Documented Date Episodic/Chronic Abdominal pain (15 sources) Vaginal pain; Translations: [Pelvic and perineal [...] Range Facility Urinalysis macro (dipstick) panel (U)on 07-03-2024 Bilirubin, UA Negative Negative - 4(70) +++ mg/dL [facility] Blood, UA Negative Negative - 50 Bib/mcL [facility] Healthcare Clarity, UA Clear [facility] Color, UA Yellow [facility] Glucose, UA Negative Negative - 1999(110) ++++ mg/dL [facility] Interpretation and review of laboratory results Abnormal [facility] Ketones, UA Negative Negative - 160(16) ++++ mg/dL [facility] Leukocytes, UA Positive Negative - 500+++ Alvaro/mcL [facility] Comment on above: small Nitrite, UA Negative Negative - Positive [facility] pH, UA 7 5 - 9 [facility] Protein, UA Negative Negative - 1999(20) ++++ mg/dL [facility] Healthcare Spec Grav, UA 1.02 1 - 1.03 [facility] Urobilinogen, UA 0.2 0.2 - 12 mg/dL [facility] macro (dipstick) panel (U)on 06-05-2024 Bilirubin, UA Negative Negative - 4(70) +++ mg/dL [facility] Blood, UA Negative Negative - 50 Bib/mcL [facility] Healthcare Clarity, UA Clear [facility] Color, UA Yellow [facility] Healthcar e Glucose, UA Negative Negative - 1999(110) ++++ mg/dL [facility] Interpretation and review of laboratory results Abnormal [facility] Ketones, UA Negative Negative - 160(16) ++++ mg/dL [facility] Leukocytes, UA Trace Negative - 500+++ Alvaro/mcL [facility] Healthcare Nitrite, UA Negative Negative - Positive [facility] pH, UA 7 5 - 9 [facility] Protein, UA Negative Negative - 1999(20) ++++ mg/dL [facility] Spec Grav, UA 1.015 1 - 1.03 [facility] care Urobilinogen, UA 0.2 0.2 - 12 mg/dL [facility] Urinalysis macro (dipstick) panel (U)on 05-22-2024 Bilirubin, UA Negative Negative - 4(70) +++ mg/dL [facility] Blood, UA Negative Negative - 50 Bib/mcL [facility] Healthcare Clarity, UA Clear [facility] Color, UA Yellow [facility] Health[facility] Glucose, UA Negative Negative - 1999(110) ++++ mg/dL [facility] Interpretation and review of laboratory results Abnormal [facility] Ketones, UA Negative Negative - 160(16) ++++ mg/dL [facility] Leukocytes, UA Positive Negative - 500+++ Alvaro/mcL [facility] Comment on above: small Nitrite, UA Negative Negative - Positive [facility] pH, UA 7 5 - 9 [facility] Health[facility] Protein, UA Negative Negative - 1999(20) ++++ mg/dL [facility] Spec Grav, UA 1.015 1 - 1.03 [facility] Urobilinogen, UA 0.2 0.2 - 12 mg/dL [facility] Urinalysis macro (dipstick) panel (U)on 05-08-2024 Bilirubin, UA Negative Negative - 4(70) +++ mg/dL [facility] Blood, UA Negative Negative - 50 Bib/mcL [facility] Healthcare Clarity, UA Clear [facility] Healthca re Color, UA Yellow [facility] Glucose, UA Negative Negative - 1999(110) ++++ mg/dL [facility] Interpretation and review of laboratory results Abnormal [facility] Ketones, UA Negative Negative - 160(16) ++++ mg/dL [facility] Leukocytes, UA Positive Negative - 500+++ Alvaro/mcL [facility] Comment on above: small Nitrite, UA Negative Negative - Positive [facility] pH, UA 7.0 5 - 9 [facility] Health[facility] Protein, UA Negative Negative - 1999(20) ++++ mg/dL [facility] Spec Grav, UA 1.020 1 - 1.03 [facility] Urobilinogen, UA 0.2 0.2 - 12 mg/dL [facility] GLUCOSE TOLERANCE 3 HOURon 1 0-03-2024 GLUCOSE TOLERANCE 3 HOUR High mg/dL [facility] Comment on above: GLU FAST 97H (<95) C ol: 05/01/24 0722 GLU 1HR 173 (<180) Col: 05/01/24 0823 GLU 2HR 162H (<155) Col: 05/01/24 0924 GLU 3HR 114 (<140) Col: 05/01/24 1022 Interpretation and review of laboratory results Abnormal [facility] PAP ACOG PANEL 2: 21 to 29on 08-25-2022 . . [facility] Comment on above: Performed By: #### 4 [id number] #### [facility] [address] [address] [address] Matias Shukla Age Gdln ACOG Testing - [facility] Comment on above: Performed By: #### 4 [id number] #### [facility] [address] [place] [address] Dr. Matias Shukla DIAGNOSIS: Comment [facility] Comment on above: Result Comment: NEGA TIVE FOR INTRAEPITHELIAL LESION OR MALIGNANCY. Performed By: #### 4 [id number] #### [facility] [address] [address] [address] Matias Shukla Methodology: Comment [facility] Comment on above: Result Comment: This liquid based ThinPrep(R) pap test was screened with the use of an image guided system. Performed By: #### 4 [id number] #### [facility] [address] [address] [address] Matias Shukla Note: Comment [facility] Comment on above: Result Comment: The Pap smear is a screening test designed to aid in the detection of premalignant and malignant conditions of the uterine cervix. It is not a diagnostic procedure and should not be used as the sole means of detecting cervical cancer. Both false-positive and false-negative reports do occur. . Performed By: #### 4 [id number] #### [facility] [address] [place] [address] Dr. Matias Shukla Performed by: Comment [facility] Comment on above: Result Comment: Monika Prieto, [employer] Ticket Checker (ASCP) Performed By: #### 4 [id number] #### [facility] [address] [place] [address] Dr. Matias Shukla Reflex Criteria: Comment Normal [facility] Comment on above: Result Comment: The HPV DNA reflex criteria were not met with this specimen result therefore, no HPV testing was performed. . Performed By: #### 4 [id number] #### [facility] [address] [address] [address] Matias Shukla Specimen adequacy: Comment Normal [facility] Comment on above: Result Comment: Sati sfactory for evaluation. Endocervical and/or squamous metaplastic cells (endocervical component) are present. Performed By: #### 4 [id number] #### [facility] [address] [place] [address] Dr. Matias Shukla MUMPS IGG BLDon 02-07-2022 MUMPS IGG 1.14 Normal [facility] Comment on above: Result Comment: RAN IN TRIPLICATE NORMAL RANGES: < OR = 0.9O NEGATIVE ; NO DETECTABLE IgG ANTIBODY TO MUMPS 0.91 - 1.09 EQUIVOCAL; REPEAT TESTING SUGGESTED > OR = 1.10 POSITIVE ; INDICATES PRESENCE OF DETECTABLE IgG ANTIBODY TO MUMPS Performed By: #### 1 0055, [id number], [id number], [id number] #### [facility] [address] [place] [address], [facility] RUBELLAon 02-07-2022 RUBELLA 1.73 Normal [facility] Comment on above: Result Comment: NORM AL RANGES: < OR = 0.9O NEGATIVE ; NO DETECTABLE IgG ANTIBODY TO RUBELLA 0.91 - 1.09 EQUIVOCAL; REPEAT TESTING SUGGESTED > OR = 1.10 POSITIVE ; INDICATES PRESENCE OF DETECTABLE IgG ANTIBODY TO RUBELLA VIRUS Performed By: #### 1 0055, [id number], [id number], 45688 #### [facility] [address] [place] [address], [facility] RUBEOLA MEASLES IGGon 2021 RUBEO IGG 4.62 Normal [facility] Comment on above: Result Comment: NORM AL RANGES: < OR = 0.9O NEGATIVE ; NO DETECTABLE IgG ANTIBODY TO RUBEOLA 0.91 - 1.09 EQUIVOCAL; REPEAT TESTING SUGGESTED > OR = 1.10 POSITIVE ; INDICATES PRESENCE OF DETECTABLE IgG ANTIBODY TO RUBEOLA Performed By: #### 1 0055, [id number], 56157, 33012 #### [facility] [address] TB QUANTIFERON PLUSon 2021 MITOGEN MINUS NIL 8.15 IU/mL Normal [facility] Comment on above: Performed By: #### 3 1592 #### [facility] [address] [place] [address], [facility] NIL 0.03 IU/mL Normal [facility] Comment on above: Performed By: #### 3 1592 #### [facility] [address] TB QUANTIFERON Negative Normal NEGATIVE [facility] Comment on above: Result Comment: Eric tiferon TB Gold Interpretation (IU/mL): NEGATIVE: M. tuberculosis infection not likely. Nil: <=8.0 TB1 Antigen minus Nil (AS3ES-RPG): <0.35 OR >=0.35; and <25% of Nil value. TB2 Antigen minus Nil ([id number]-[id number]): <0.35 OR >=0.35; and <25% of Nil [...] Performed By: #### 3 1592 #### [facility] [address] [place] [address], [facility] TB1 AG 0.03 IU/mL Normal [facility] Comment on above: Performed By: #### 3 1592 #### [facility] [address] [facility] [place] [address], [facility] TB1 AG MINUS NIL 0.00 IU/mL Normal [facility] Comment on above: Performed By: #### 3 1592 #### [facility] [address] [place] [address], [facility] TB2 AG 0.04 IU/mL Normal [facility] Comment on above: Performed By: #### 3 1592 #### [facility] [address] [place] [address], [facility] TB2 AG MINUS NIL 0.01 IU/mL Normal [facility] Comment on above: Performed By: #### 3 1592 #### [facility] [address] [place] [address], [facility] VARICELLA ZOSTER IGGon 02-[address] [facility] Comment on above: Result Comment: NORM AL RANGES: < OR = 0.9O NEGATIVE ; NO DETECTABLE IgG ANTIBODY TO VARICELLA-ZOSTER VIRUS 0.91 - 1.09 EQUIVOCAL; REPEAT TESTING SUGGESTED > OR = 1.10 POSITIVE ; INDICATES PRESENCE OF DETECTABLE IgG ANTIBODY TO VARICELLA-ZOSTER VIRUS Performed By: #### 1 0055, 45753, 72031, 24552 #### [facility] [address] HPV DNA High Riskon 08-19-19 22 HPV Interp Normal [facility] Comment on above: Result Comment: This test [...] purposes. Performed By: #### H PVH #### [address] [address] Drosser: Rickey Watson MD HPV Type 16 Not detected Normal [facility] Comment on above: Performed By: #### H PVH #### [address] [address] Drosser: Rickey Watson MD HPV Type 18 Not detected [facility] Comment on above: Performed By: #### H PVH #### [address] [address] Drosser: Rickey Watson MD Other High Risk HPV Not detected Normal [facility] Comment on above: Performed By: #### H PVH #### [address] [address] Drosser: Rickey Watson MD HPV DNA High Riskon 08-18-19 Source .GENITAL - NOT SPECIFIED Normal [facility] Comment on above: Performed By: #### H PVH #### [address] [address] Drosser: Rickey Watson MD HPV Sample .THIN PREP Normal [facility] Comment on above: Performed By: #### H PVH #### [address] [address] Drosser: Rickey Watson MD Chlamydia/GC DNA, TPon 08-10 Chlamydia Probe, TP Negative Normal NEG [facility] Comment on above: Result Comment: CHLA MYDIA [...] target. Performed By: #### C YTCGP #### [address] [address] Drosser: Rickey aWtson MD Gonorrhea Probe, TP Negative Normal NEG [facility] Comment on above: Result Comment: NEIS SERIA [...] target. Performed By: #### C YTCGP #### [address] [address] Drosser: Rickey Watson MD Cytologyon 08-08-2021 Cytology (NOTE) INTERPRETATION Cervical material, (ThinPrep vial, Imaging-assisted review): Specimen Adequacy: Satisfactory for evaluation. - Endocervical/transfor mation zone component present. - Scant cellularity. Descriptive Diagnosis: Atypical squamous cells of undetermined significance (ASC-US). [employer] Checker: AMANDA Michaels M.D. Electronically Signed Out rdd/08/18/2021 Amendments Originally Reported As: Procedure/Addendum Source: Clinical History LMP: Patient Name: Med Rec: Path Number: Fax: Normal [facility] Comment on above: Performed By: #### P PPVP #### [address] [address] Drosser: Rickey Watson MD QuantiFERON TBon 12-24-2020 Quanti Binu minus NIL 8.10 IU/mL [facility] Comment on above: Performed By: #### R UBI, LUIZ, MARITZA, VZI #### [address] [id number] Drosser: Rickey Watson MD #### AQF #### [employer] [facility] [address] [place] [address] Drosser: Mark Grossman MD Quanti TB Gold Plus Negative Normal Negative [facility] Comment on above: Result Comment: (NOT E) [...] Mycobacterium tuberculosis Infection --- [place], 2010 (http://www.cdc.gov/mmwr/preview/mmwrhtml/to1973w3.htm), for more information concerning test performance in low-prevalence populations and use in occupational screening. Performed By: #### R UBILUIZ MUI, VZI #### [facility] [address] [place] [address] Drosser: Rickey Watson MD #### AQF #### [facility] [address] [place] [address] Drosser: Mark Grossman MD Quanti TB1 minus NIL 0.00 IU/mL Normal 0.00-0.34 [facility] Comment on above: Performed By: #### R MARIA MILUIZ MARITZA, VZI #### [facility] [address] [place] [address] Drosser: Rickey Watson MD #### AQF #### [facility] [address] [place] [address] Drosser: Mark Grossman MD Quanti TB2 minus NIL 0.01 IU/mL Normal 0.00-0.34 [facility] Comment on above: Performed By: #### R UBI, LUIZ, MARITZA, VZI #### [address] [id number] Drosser: Rickey Watson MD #### AQF #### [address] [address] Drosser: Mark Grossman MD QuantiFERON NIL 0.01 IU/mL Normal [facility] Comment on above: Result Comment: (NOT E) Performed By: [place] [address] Covered Buckle Assembler: Carolyn Wei MD Performed By: #### R UBI, LUIZ, MARITZA, VZI #### [place] [address] Drosser: Rickey Watson MD #### AQF #### [address] [address] Drosser: Mark Grossman MD Measles (Rubeola) Imon 12-22 Measles (Rubeola) Im 3.68 Normal >1.09 [facility] Comment on above: Result Comment: Interpretation: IMMUNE Reference Range: <0.91 Not Immune 0.91-1.09 Equivocal >1.09 Immune Performed By: #### R UBI, LUIZ, MARITZA, VZI #### [place] [address] Drosser: Rickey Watson MD #### AQF #### [facility] [address] [place] [address] Drosser: Mark Grossman MD Mumps,Immun,Abon 12-22-2020 Mumps,Immun,Ab 1.16 Normal >1.09 [facility] Comment on above: Result Comment: Interpretation: IMMUNE Reference Range: <0.91 Not Immune 0.91-1.09 Equivocal >1.09 Immune Performed By: #### R UBI, LUIZ, MARITZA, VZI #### [address] [address] Drosser: Rickey Watson MD #### AQF #### [facility] [address] [place], [place] [id number] Drosser: Mark Grossman MD VZ Immunityon 12-22-2020 VZ Immunity 2.24 Normal >1.09 [facility] Comment on above: Result Comment: Interpretation: IMMUNE Reference Range: <0.91 Not Immune 0.91-1.09 Equivocal >1.09 Immune Performed By: #### R UBI, LUIZ, MARITZA, VZI #### [address] [address] Drosser: Rickey Watson MD #### AQF #### [address] [id number] Drosser: Mark Grossman MD Rubella Ab, IgGon 12-21-2020 Rubella Ab, IgG 16.2 IU/mL Normal [facility] Comment on above: Result Comment: REFERENCE RANGE: <5.0 NON-REACTIVE (non-immune) 5.0 TO 9.9 EQUIVOCAL >=10.0 REACTIVE (immune) Performed By: #### R UBI, LUIZ, MARITZA, VZI #### [address] [address] Drosser: Rickey Watson MD #### AQF #### [facility] [address] [place], [place] [id number] Drosser: Mark Grossman MD Rubella antibody, IgGOrdered By: Jimmy Meehan on 12-21-2020 Rubella virus IgG Ql (S) 16.2 IU/mL [employer] Phone: Comment on above: REFERENCE RANGE: <5.0 NON-REACTIVE (non-immune) 5.0 TO 9.9 EQUIVOCAL >=10.0 REACTIVE (immune) [employer] Phone: Lab - Toxicology Resultson 0 03-11-2020 Lab - Toxicology Results [id number] Normal [facility] QuantiFERON TB Gold (In Tube ) LCon 03-08-2020 QuantiFERON Criteria LC Comment [facility] Comment on above: Result Comment: The QuantiFERON-TB Gold Plus result is determined by subtracting the Nil value from either TB antigen (Ag) tube. The mitogen tube serves as a control for the test. Performed By: #### 4 [id number], [id number] #### [facility] (DEFAULT) [address] [place] [address] QuantiFERON M. tuberculosis1 Ag Value LC 0.09 IU/mL [facility] Comment on above: Performed By: #### 4 [id number] #### [facility] (DEFAULT) [address] [place] [address] QuantiFERON M. tuberculosis2 Ag Value LC 0.08 IU/mL [facility] Comment on above: Performed By: #### 4 [id number], [id number] #### [facility] (DEFAULT) [address] [place] [address] QuantiFERON Mitogen Value LC >10.00 [facility] Comment on above: Result Comment: Perf ormed At: [facility] [id number] Kat Arevalo PhD Ph:[phone] Performed By: #### 4 [id number], [id number] #### [facility] (DEFAULT) [address] [place] [address] QuantiFERON Nil Value LC 0.01 IU/mL [facility] Comment on above: Performed By: #### 4 [id number], [id number] #### [facility] (DEFAULT) [address] [place] [address] QuantiFERON-TB Gold Plus LCo n 03-08-2020 QuantiFERON-TB Gold Plus LC Negative Negative [facility] Comment on above: Result Comment: Perf ormed At: [address] [id number] Kat Arevalo PhD Ph:[phone] Performed By: #### 4 [id number], [id number] #### [facility] (DEFAULT) [address] [place] [address] QuantiFERON Incubation LC Incubation performed. [facility] Comment on above: Result Comment: Perf ormed At: [address] [address] Kat Arevalo PhD Ph:[phone] Performed By: #### 4 [id number], [id number] #### [facility] (DEFAULT) [address] [place] [address] HBSab Qnt LCon 03-05-2020 Hep B Surf Ab Quant LC 145.6 mIU/mL Immunity>9.9 [facility] Comment on above: Result Comment: Stat us of Immunity Anti-HBs Level Inconsistent with Immunity 0.0 - 9.9 Consistent with Immunity >9.9 Performed At: [address] [id number] Kat Arevalo PhD Ph:[phone] Performed By: #### 1 [id number], [id number] #### [facility] (DEFAULT) [address] [place] [address] Measles/Mumps/Rubella Immuni ty LCon 03-05-2020 Mumps Abs, IgG LC 69.5 AU/mL Immune >10.9 [facility] Comment on above: Result Comment: Nega tive <9.0 Equivocal 9.0 - 10.9 Positive >10.9 A positive result generally indicates past exposure to Mumps virus or previous vaccination. Performed At: [facility] [address] [id number] Kat Arevalo PhD Ph:[phone] Performed By: #### 1 [id number], [id number] #### [facility] (DEFAULT) [address] [place] [address] Rubella Antibodies, IgG LC 1.75 index Immune >0.99 [facility] Comment on above: Result Comment: Non- immune <0.90 Equivocal 0.90 - 0.99 Immune >0.99 Performed By: #### 1 [id number], [id number] #### [facility] (DEFAULT) [address] [place] [address] Rubeola Ab, IgG, EIA LC >300.0 Immune >16.4 [facility] Comment on above: Result Comment: Nega tive <13.5 Equivocal 13.5 - 16.4 Positive >16.4 Presence of antibodies to Rubeola is presumptive evidence of immunity except when acute infection is suspected. Performed By: #### 1 [id number], [id number] #### [facility] (DEFAULT) [address] [place] [address] Nicotine Metabolite, Urine L Con 03-05-2020 Cotinine LC Negative Gxwhgm=179 [facility] Comment on above: Result Comment: Perf ormed At: [facility] [address] [place], [place] [id number] Jose Schwartz PhD Ph:[phone] Performed By: #### 1 [id number] #### [facility] (DEFAULT) [address] [place] [address] Vital Signs Date Time Vital Sign Value Performing Clinician Faci lity 07-03-2024 11:01-0500 Body mass index (BMI) [Ratio] 41.12 kg/m2 [employer] Work Phone: [facility] 07-03-2024 11:01-0500 Body weight 101.97 kg [employer] Work Phone: [facility] 07-03-2024 11:01-0500 Diastolic blood pressure 70 mm[Hg] [employer] Work Phone: [facility] 07-03-2024 11:01-0500 Systolic blood pressure 120 mm[Hg] Jasiel Deshaun DO Work Phone: [facility] 06-19-2024 10:40-0500 Body mass index (BMI) [Ratio] 40.02 kg/m2 Suri Parker PA Work Phone: [facility] 06-19-2024 10:40-0500 Body weight 99.25 kg Suri Parker PA Work Phone: [facility] 06-19-2024 10:40-0500 Diastolic blood pressure 74 mm[Hg] Suri Crabtree PA Work Phone: [facility] 06-19-2024 10:40-0500 Systolic blood pressure 110 mm[Hg] Suri Parker PA Work Phone: [facility] 06-05-2024 11:46-0500 Body mass index (BMI) [Ratio] 39.69 kg/m2 Suri Parker PA Work Phone: [facility] 06-05-2024 11:46-0500 Body weight 98.43 kg Suri Parker PA Work Phone: [facility] 06-05-2024 11:46-0500 Diastolic blood pressure 80 mm[Hg] Suri Crabtree PA Work Phone: [facility] 06-05-2024 11:46-0500 Systolic blood pressure 114 mm[Hg] Suri Crabtree PA Work Phone: [facility] 05-22-2024 09:57-0400 Body mass index (BMI) [Ratio] 39.1 kg/m2 Jasiel Deshaun DO Work Phone: [facility] 05-22-2024 09:57-0400 Body weight 96.98 kg Jasiel Deshaun DO Work Phone: [facility] 05-22-2024 09:57-0400 Diastolic blood pressure 72 mm[Hg] Jasiel Deshaun DO Work Phone: [facility] 05-22-2024 09:57-0400 Systolic blood pressure 110 mm[Hg] Jasiel Deshaun DO Work Phone: [facility] 05-08-2024 09:31-0400 Body mass index (BMI) [Ratio] 38.59 kg/m2 Suri LORENZO Work Phone: [facility] 05-08-2024 09:31-0400 Body weight 95.71 kg Suri LORENZO Work Phone: [facility] 05-08-2024 09:31-0400 Diastolic blood pressure 78 mm[Hg] Suri LORENZO Work Phone: [facility] 05-08-2024 09:31-0400 Systolic blood pressure 120 mm[Hg] Suri LORENZO Work Phone: [facility] Healthcare Encounters Encounter Date Encounter Type Care Provider Facility Start: 07-03-2024 End: 07-03-2024 flow sheet Jasiel Deshaun DO Work Phone: [facility] Comment on above: 36 weeks gestation o f ; Third trimester Start: 06-19-2024 End: 06-19-2024 Bamboo flowsheet Suri LORENZO Work Phone: [facility] Start: 06-19-2024 End: 06-19-2024 Bamboo flowsheet Suri LORENZO Work Phone: [facility] Start: 06-19-2024 End: 06-19-2024 flow sheet Suri LORENZO Work Phone: [facility] Comment on above: Third trimester preg jeffrey; 34 weeks gestation of Start: 06-19-2024 End: 06-19-2024 ambulatory SURI CANALES Not Available Start: 06-05-2024 End: 06-05-2024 Bamboo flowsheet Suri LORNEZO Work Phone: [facility] Start: 06-05-2024 End: 06-05-2024 Bamboo flowsheet Suri LORENZO Work Phone: [facility] Start: 06-05-2024 End: 06-05-2024 flow sheet Suri LORENZO Work Phone: [facility] Comment on above: 32 weeks gestation o f ; Third trimester Start: 06-05-2024 End: 06-05-2024 ambulatory SURI CANALES Not Available Start: 05-22-2024 End: 05-22-2024 Bamboo flowsheet Jasiel Deshaun DO Work Phone: [facility] Start: 05-22-2024 End: 05-22-2024 Bamboo flowsheet Jasiel Deshaun DO Work Phone: [facility] Start: 05-22-2024 End: 05-22-2024 flow sheet Jasiel Deshaun DO Work Phone: [facility] Comment on above: 30 weeks gestation o f ; Third trimester ; Gestational diabetes mellitus (GDM), antepartum, gestational diabetes method of control unspecified Start: 05-22-2024 End: 05-22-2024 ambulatory JASIEL DESHAUN Not Available Start: 05-08-2024 End: 05-08-2024 Bamboo flowsheet Suri LORENZO Work Phone: [facility] Start: 05-08-2024 End: 05-08-2024 Bamboo flowsheet Suri LORENZO Work Phone: [facility] Start: 05-08-2024 End: 05-08-2024 flow sheet Suri LORENZO Work Phone: [facility] Comment on above: [...] 04-10-2024 End: 04-10-2024 ambulatory JASIEL R DESHAUN [facility] Start: 03-13-2024 End: 03-13-2024 ambulatory SURI CANALES Not Available Start: 02-13-2024 End: 02-13-2024 ambulatory JASIEL DESHAUN Not Available Start: 01-17-2024 End: 01-17-2024 ambulatory SURI CANALES Not Available Start: 08-22-2023 End: 08-22-2023 ambulatory JASIEL DESHAUN Not Available Start: 07-04-2023 End: 07-04-2023 ambulatory JASIEL DESHAUN Not Available Start: 08-21-2022 End: 08-21-[address] [facility]LLAMY [facility] Facility: Start: 08-08-2021 End: 08-09-2021 ambulatory SHANTELLE HDEZ [facility] Start: 12-21-2020 End: 12-22-2020 ambulatory JIMMY SANCHEZJEFFKENYETTA [facility] Start: 12-21-2020 End: 12-21-2020 Subsequent hospital visit by physician Shantelle Dean PA-C Work Phone: [facility] Start: 03-18-2020 End: 03-18-2020 Subsequent hospital visit by physician Shantelle [place] [facility] Procedures Date Procedure Procedure Detail Performing Clinician Start: 07-03-2024 Urnls dip stick/tabl et rgnt non-auto w/o micrscp Jasiel Deshaun DO Work Phone: Start: 06-05-2024 Urnls dip stick/tabl et rgnt [...] - Td) DTaP/Tdap/Td vaccine (7 - Td) [place], [place] Start: 10-23-2024 End: 10-23-2024 Patient encounter procedure 10/23/2024 10:20 AM EDT Office Visit [facility] [address] [place] [address] Jasiel Meade, DO [address] [place], [place] [id number] [facility] Start: 08-25-2024 End: 08-25-2024 Patient encounter procedure 08/25/2024 9:00 AM EST Office Visit [facility] [address] [place] [address] Jasiel Meade, DO [address] [place], [place] [id number] [facility] Start: 07-10-2024 End: 07-10-2024 Patient encounter procedure 07/10/2024 10:30 AM EST Routine [facility] [address] [place] [address] Jasiel Meade, DO [address] [place], [place] [id number] [facility] Start: 07-03-2024 End: 07-03-2025 Strep B DNA probe, amplification Strep B DNA probe, amplification Lab Routine Third trimester Expected: 07/03/2024 (Approximate), Expires: 07/03/2025 [facility] Work Phone: Comment on above: Expected: 07/03/2024 (Approximate), Expires: 07/03/2025 Start: 07-03-2024 End: 07-03-2024 Patient encounter procedure 07/03/2024 10:40 AM EST Routine [facility] [address] [address] DeshaunJasiel mcgee, DO [address] [place] [address] [facility] Start: 07-02-2024 End: 07-02-2024 Professional / ancillary services management 07/02/2024 2:00 PM EST Ancillary Procedure [facility] [address] [place] [id number] [facility] Start: 06-19-2024 End: 06-19-2024 [...] EDT Ancillary Procedure [facility] [address] [address] [facility] Start: 05-08-2024 End: 05-08-2025 US for US OB SCAN FOR GROWTH Imaging Routine size inconsistent with dates Expected: 05/08/2024 (Approximate), Expires: 05/08/2025 [facility] Work Phone: Comment on above: Expected: 05/08/2024 (Approximate), Expires: 05/08/2025 Start: 05-08-2024 End: 05-08-2024 Patient encounter procedure [facility] Comment on above: Arrived Start: 03-30-2024 Influenza vaccination Influenza Vacc ine (#1) [facility] Start: 03-18-2023 Screening for malign ant neoplasm of cervix [facility] Start: 06-12-2021 Screening for malign ant neoplasm of cervix Cervical cancer screen [place], [place] Start: 03-30-2021 Influenza vaccination Flu vacc ine (Season Ended) [facility] [employer] Phone: Start: 03-30-2020 Influenza vaccination Flu vaccine (# 1) [place], [place] Start: 06-12-2019 Screening for Chlamy flaco trachomatis Chlamydia screen [place], [place] Start: 09-13-2011 Hepatitis A vaccine (2 of 2 - 2-dose series) Hepatitis A vaccine (2 of 2 - 2-dose series) [place], [place] Start: 2007 COVID-19 Vaccine (1) COVID-19 Vaccin e (1) [facility] [employer] Phone: Start: 1995 Hepatitis C screening Hepatitis C sc reen [facility] [employer] Phone: End: 12-21-2020 Mumps Antibody, IgG Mumps Antibody, IgG Lab Routine Once for 1 Occurrences starting 12/21/2020 until 12/21/2020 [facility]: Comment on above: Once for 1 Occurrenc es starting 12/21/2020 until 12/21/2020 Mumps Antibody, IgG Mumps Antibo dy, IgG Lab Routine 12/21/2020 4:27 PM EDT [employer] Phone: End: 12-21-2020 Quantiferon TB Gold Quantiferon TB Gold Microbiology Routine Once for 1 Occurrences starting 12/21/2020 until 12/21/2020 [employer] Phone: Comment on above: Once for 1 Occurrenc es starting 12/21/2020 until 12/21/2020 Quantiferon TB Gold Quantiferon TB Gold Microbiology Routine 12/21/2020 4:27 PM EDT [employer] Phone: End: 12-21-2020 Rubeola Antibody, IgG Rubeola Antibody, IgG Lab Routine Once for 1 Occurrences starting 12/21/2020 until 12/21/2020 [employer] Phone: Comment on above: Once for 1 Occurrenc es starting 12/21/2020 until 12/21/2020 Rubeola Antibody, IgG Rubeola An tibody, IgG Lab Routine 12/21/2020 4:27 PM EDT [employer] Phone: End: 12-21-2020 Varicella Zoster Antibody, IgG Varicella Zoster Antibody, IgG Lab Routine Once for 1 Occurrences starting 12/21/2020 until 12/21/2020 [employer] Phone: Comment on above: Once for 1 Occurrenc es starting 12/21/2020 until 12/21/2020 Varicella Zoster Antibody, IgG Varicella Zoster Antibody, IgG Lab Routine 12/21/2020 4:27 PM EDT [employer] Phone: Immunizations Immunization Date Immunization Notes Care Provider [facility] 06-28-2021 influenza virus vacc ine, unspecified formulation Jasiel Meade DO Work Phone: [facility] 03-09-2020 tuberculin skin test ; purified protein derivative solution, intradermal Shantelle [place], [place] 04-28-2019 influenza, injectabl e, quadrivalent, preservative free [facility], [place] 06-12-2018 influenza, injectabl e, quadrivalent, preservative free [facility] 05-01-2018 tuberculin skin test ; purified protein derivative solution, intradermal [facility] 09-12-2017 hepatitis B vaccine, adult dosage [facility] 04-13-2017 Human Papillomavirus 9-valent vaccine [facility] 04-10-2017 hepatitis B vaccine, adult dosage [facility] 03-07-2017 hepatitis B vaccine, adult dosage [facility] 03-07-2017 meningococcal polysaccharide (groups A, C, Y and W-135) diphtheria toxoid conjugate vaccine (MCV4P) [facility] 03-07-2017 tuberculin skin test ; purified protein derivative solution, intradermal [facility] 02-26-2017 tetanus toxoid, redu juve diphtheria toxoid, and acellular pertussis vaccine, adsorbed [facility] 02-26-2017 tuberculin skin test ; purified protein derivative solution, intradermal [facility] 08-13-2014 Human Papillomavirus 9-valent vaccine [facility] 04-01-2014 meningococcal polysaccharide (groups A, C, Y and W-135) diphtheria toxoid conjugate vaccine (MCV4P) [facility], [place] 02-10-2014 Human Papillomavirus 9-valent vaccine [place], [place] Payers Date Payer Category Payer Private Health Insurance [employer] [id number] 2022 Unknown [employer] [id number] 2022-Present [address] [place] [address] [id number] 2022 Unknown [id number] 2021 Unknown [id number] 2016 Private Health Insurance AETZEUS FIERRO [id number] 2016-Present [phone] [address] [place] [address] [id number] 1995 Unknown [id number] [id number]. 175 1995 Unknown [id number] [id number]. 593 1995 Unknown [id number] [id number]. 1286 1995 Unknown [id number] 2.16840.1.831524.3.579.2. 1259 1995 Unknown [id number] 2.16840.1.470898.3.579.2. 1259 1995 Unknown [id number] 2.16840.1.162992.3.579.2. 1259 1995 Unknown [id number] 2.16840.1.136378.3.579.2. 1259 1995 Unknown [id number] 2.16840.1.272008.3.579.2. 1259 1995 Unknown [id number] [id number]. 9 1995 Unknown [id number] 2.16.840.1.170805.3.579.2. 9 1995 Unknown [id number] [id number]. 9 1995 Unknown [id number] [id number]. 9 1995 Unknown [id number] [id number]. 1259 1959 Unknown [id number] Social History Date Type Detail Facility Start: 03-18-2020 End: 01-17-2024 Tobacco smoking status NCIS Never smoker [facility] Start: 03-18-2020 End: 01-17-2024 Tobacco use and exposure Never used [facility] Start: 02-05-2017 Alcohol Comment rarely [employer] Sex Assigned At Not on file [facility] Start: 1995 Sex Assigned At Female [employer] Work Phone: Start: 04-17-2024 End: 07-03-2024 Alcoholic beverage intake Ex-drinker (finding) [facility] Start: 01-17-2024 End: 04-17-2024 Alcoholic beverage intake [facility] Start: 01-17-2024 Tobacco use panel [facility] Start: 11-04-2023 [facility] Start: 02-20-2023 Gender identity Identifies as female gender (finding) [facility] Start: 02-20-2023 Sexual orientation Heterosexual (finding) [facility] Medical Equipment Procedure Code Equipment Code Equipment Original Text Equipment Identifier Dates Inject 1 each un flory the skin See administration instructions Use four times daily with insulin pen. [id number] Start: 05-26-2024 End: 06-25-2024 History of Present illness Narrative 07-03-2024 Shima العراقي LPN - 07/03/2024 10:40 AM EST Note Date & Type Note Facility 07-03-2024 History of Presen t illness Narrative Reason for Appointment: Patient ID: Holli Jenkins is a 28 y.o. female who presents for Routine Visit Patient presents today for Return OB appointment. MEDICATIONS Current Outpatient Medications Medication Instructions insulin glargine (LANTUS) 10 Units, Subcutaneous, Every evening magnesium oxide (MAG-OX) 400 mg, Daily RT [...] Constitutional: Appearance: Normal appearance. She is well-developed. Genitourinary: Vulva normal. Cardiovascular: Rate and Rhythm: Normal rate and [...] note reviewed. Exam conducted with a assistant to the president present. Vitals: Estimated body mass index is 41.12 kg/m as calculated from the following: Height as of 03/22/23: 5' 2 . Weight as of this encounter: 224 lb 12.8 oz. BP: 120/70 Patient's last menstrual period was 10/21/2023. ASSESSMENT & PLAN ICD-10-CM 1. 36 weeks gestation of Z3A.36 POCT urinalysis dipstick manually resulted 2. Third trimester Z34.93 POCT urinalysis dipstick manually resulted Strep B DNA probe, amplification Strep B DNA probe, amplification Patient is doing well but has complaints of being tired and having maternal discomfort due to . Patient verbalized frequent movement and was instructed to perform kick counts three times per day. labor precautions were given, LARC consent was signed/declined, and GBS was obtained. Cervical check was performed and patient is 2cm dilated. Orders Placed This Encounter Procedures Strep B DNA probe, amplification POCT urinalysis dipstick manually resulted Discussed patients recent growth scan and discussed possible IOL early due to LGA on 07/14/24 for 0500 Pit due to LGA and uncontrolled GDM. Follow Up: Patient is to return to office in 1 week for routine OB appointment Documented by Shima العراقي LPN on behalf of: Jasiel Meade DO documented in this encounter [facility] History of Present illness Narrative 06-19-2024 BJ [...] note reviewed. Exam conducted with a assistant to the president present. Vitals: Estimated body mass index is [...] note reviewed. Exam conducted with a assistant to the president present. Vitals: Estimated body mass index is [...] note reviewed. Exam conducted with a assistant to the president present. Vitals: Estimated body mass index is [...] of: BJ Garcia documented in this encounter [facility] Evaluation note Note Date [...] trimester state, incidental documented in this encounter [facility] Evaluation note Note Date & Type Note Facility Evaluation note Diagnosis Third trimester state, incidental 34 weeks gestation of documented in this encounter [facility] Evaluation note Note Date & Type Note Facility Evaluation note Diagnosis 36 weeks gestation of Third trimester state, incidental documented in this encounter [facility] Summary Purpose Family History No Family History Records FoundNo Family History Records FoundNo Family History Records FoundNo Family History Records FoundNo Family History Records FoundNo Family History Records Found Advance Directives Documents on File Type Date Recorded Patient Echocardiograph Technician Expl anation ACP-Advance Directive ACP-Power of Eyelet Row Marker Additional Source Comments INFORMATION SOURCE (unrecogn ized section and content) DATE CREATED AUTHOR 03/12/2020 [facility] DATE CREATED AUTHOR AUTHOR'S ORGANIZ ATION 08/20/2021 [facility] DATE CREATED AUTHOR AUTHOR'S ORGANIZ ATION 02/18/2022 [facility] DATE CREATED AUTHOR AUTHOR'S ORGANIZ ATION 08/25/2022 [facility] DATE CREATED AUTHOR AUTHOR'S ORGANIZ ATION 04/12/2024 [facility] DATE CREATED AUTHOR AUTHOR'S ORGANIZ ATION 06/22/2024 [facility] EPIC Care Teams (unrecognized sec tion and content) 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 [place] [address] [facility] [place] [address] PCP - General Family Medicine 03/22/23 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 [place] [address] [facility] [address] PCP - General Family Medicine 03/22/23 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 [place] [address] [facility] [place] [address] PCP - General Family Medicine 03/22/23 Suri Canales PA [address] [place], [place] [address] [address] PCP - Medical [employer] 07/30/22 07/29/99 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 [place] [address] [place] [address] PCP - General Family Medicine 03/22/23 Suri Canales PA [facility] [place] [address] PCP - Medical [employer] 07/30/22 07/29/99 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 [place] [address] [place] [address] PCP - General Family Medicine 03/22/23 Suri Canales PA [facility] [place] [address] PCP - Medical [employer] 07/30/22 07/29/99 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 [place] [address] [facility] [place] [address] PCP - General Family Medicine 03/22/23 Suri Canales PA [facility] [place] [address] PCP - Medical [employer] 07/30/22 07/29/99 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 [facility]. provides no warranty or guarantee of the accuracy or completeness of information in this document.
--- NOTE | 2024-07-10 08:55 | US_ITS ---
[address] [address] Patient Name: ZAKIA SEARS MRN: [id number] date: 1995 Sex: F Assigned Patient Location: [facility] Current Patient Location: [facility] Accession/Order Number: [id number] Exam Date: 07/10/2024 09:00 Report Date: 07/10/2024 09:27 At the request of: JASIEL RAMOS Procedure: US OB BPP w non-stress EXAMINATION: US OB BPP w non-stress HISTORY: Gestational diabetes mellitus COMPARISON: No relevant comparison available. TECHNIQUE: Ultrasound biophysical profile was performed in the radiology department. non-reactive stress testing was performed by nursing staff in the birthing center. FINDINGS: BREATHING MOVEMENTS: 2 GROSS BODY MOVEMENTS: 2 TONE: 2 QUALITATIVE AMNIOTIC FLUID VOLUME: 2 PRESENTATION: CEPHALIC HEART RATE: 162.65 bpm AMNIOTIC FLUID VOLUME: 13.1 cm GESTATIONAL AGE: 37 weeks 4 days US/US OB BPP w non-stress IMPRESSION: Total biophysical profile score: 8 Electronically authenticated by: KAJAL MARINELLI Date: 07/10/2024 09:27
[2024-07-10 09:16] VITALS: BP 123/72; PULSE 88
== END 2024-07-10 09:50 | disposition home or self-care (01) ==
LOC: US 06:20 → FBC 08:53
PROVIDERS: Visit Provider Obstetrics & Gynecology
DX: O24.419 Gestational diabetes mellitus in pregnancy, unspecified control (principal); Z3A.37 37 weeks gestation of pregnancy
CPT/HCPCS: 76818

== ENCOUNTER 2024-07-14 05:13 | Inpatient (IN) | payer OTHER, SELFPAY ==
[2024-07-14] VITALS (36 sets, daily range): BP systolic 87–151; BP diastolic 50–83; PULSE 75–121; TEMP 36.2–37.3
--- OUTSIDE RECORDS SUMMARY | 2024-07-14 05:19 | XMS_ITS | CCD ---
Author Organization [facility] Care Team Providers Care Mother Helper Name Role Phone Shantelle Dean Primary Care [...] Suri Johnson Unavailable JASIEL MEADE Attending Unavailable DESHAUN, JASIEL Attending Unavailable PARKER, SURI Attending Unavailable DESHAUN, JASIEL Attending Unavailable PARKER, SURI Attending Unavailable DESHAUN, JASIEL Attending Unavailable PARKER, SURI Attending Unavailable PARKER, SURI Attending Unavailable DESHAUN, JASIEL Attending Unavailable DESHAUN, [...] Active magnesium oxide 400 mg oral tablet (16 sources) take 1 tablet by mouth in [...] Problem Date Documented Date Episodic/Chronic Abdominal pain (16 sources) Vaginal pain; Translations: [Pelvic and perineal [...] Test Name Value Interpretation Reference Range Facility RECURRENT VAGINITIS (HTRX)on 07-11-2024 ATOPOBIUM VAGINAE 20.066 Abnormal [facility] ATOPOBIUM VAGINAE Detected Abnormal [facility] BVAB 2,3 (BACTERIAL VAGINOSIS ASSOCIATED BACTERIA 2, 3); MOBILUNCUS SPP 0 [facility] BVAB 2,3 (BACTERIAL VAGINOSIS ASSOCIATED BACTERIA 2, 3); MOBILUNCUS SPP Not detected [facility] AGATA ALBICANS, PARAPSILOSIS, TROPICALIS 0 [facility] AGATA ALBICANS, PARAPSILOSIS, TROPICALIS Not detected [facility] AGATA GLABRATA 0 [facility] He[facility]care AGATA GLABRATA Not detected [facility] ealthcare AGATA KRUSEI 0 [facility] Healt hcare AGATA KRUSEI Not detected [facility] CHLAMYDIA TRACHOMATIS 0 [facility] CHLAMYDIA TRACHOMATIS Not detected [facility] GARDNERELLA VAGINALIS 0 [facility] GARDNERELLA VAGINALIS Not detected [facility] Interpretation and review of laboratory results Abnormal [facility] MEGASPHAERA (TYPES 1, 2) 0 [facility] MEGASPHAERA (TYPES 1, 2) Not detected [facility] MYCOPLASMA GENITALIUM 0 [facility] MYCOPLASMA GENITALIUM Not detected [facility] NEISSERIA GONORRHOEAE 0 [facility] NEISSERIA GONORRHOEAE Not detected [facility] TRICHOMONAS VAGINALIS 0 [facility] TRICHOMONAS VAGINALIS Not detected [facility] Urinalysis macro (dipstick) panel (U)on 07-03-2024 Bilirubin, UA Negative Negative - 4(70) +++ mg/dL [facility] Blood, UA Negative Negative - 50 Bib/mcL [facility] Clarity, UA Clear [facility] Color, UA Yellow [facility] Healthcar e Glucose, UA Negative Negative - 2000(110) ++++ mg/dL [facility] Interpretation and review of laboratory results Abnormal [facility] Ketones, UA Negative Negative - 160(16) ++++ mg/dL [facility] Healthcare Leukocytes, UA Positive Negative - 500+++ Alvaro/mcL [facility] Healthcare Comment on above: small Nitrite, UA Negative Negative - Positive [facility] Healthcare pH, UA 7 5 - 9 [facility] Protein, UA Negative Negative - 1999(20) ++++ mg/dL [facility] Healthcare Spec Grav, UA 1.02 1 - 1.03 [facility] care Urobilinogen, UA 0.2 0.2 - 12 mg/dL [facility] Urinalysis macro (dipstick) panel (U)on 06-05-2024 Bilirubin, UA Negative Negative - 4(70) +++ mg/dL [facility] Blood, UA Negative Negative - 50 Bib/mcL [facility] Healthcare Clarity, UA Clear [facility] re Color, UA Yellow [facility] e Glucose, UA Negative Negative - 1999(110) ++++ mg/dL [facility] Interpretation and review of laboratory results Abnormal [facility] Ketones, UA Negative Negative - 160(16) ++++ mg/dL [facility] Leukocytes, UA Trace Negative - 500+++ Alvaro/mcL [facility] Nitrite, UA Negative Negative - Positive [facility] pH, UA 7 5 - 9 [facility] Healthcar e Protein, UA Negative Negative - 1999(20) ++++ mg/dL [facility] Spec Grav, UA 1.015 1 - 1.03 [facility] Urobilinogen, UA 0.2 0.2 - 12 mg/dL [facility] Urinalysis macro (dipstick) panel (U)on 05-22-2024 Bilirubin, UA Negative Negative - 4(70) +++ mg/dL [facility] Blood, UA Negative Negative - 50 Bib/mcL [facility] Healthcare Clarity, UA Clear [facility] Color, UA Yellow [facility] e Glucose, UA Negative Negative - 1999(110) ++++ mg/dL [facility] Interpretation and review of laboratory results Abnormal [facility] Ketones, UA Negative Negative - 160(16) ++++ mg/dL [facility] Healthcare Leukocytes, UA Positive Negative - 500+++ Alvaro/mcL [facility] Healthcare Comment on above: small Nitrite, UA Negative Negative - Positive [facility] pH, UA 7 5 - 9 [facility] e Protein, UA Negative Negative - 1999(20) ++++ mg/dL [facility] Spec Grav, UA 1.015 1 - 1.03 [facility] Urobilinogen, UA 0.2 0.2 - 12 mg/dL [facility] Urinalysis macro (dipstick) panel (U)on 05-08-2024 Bilirubin, UA Negative Negative - 4(70) +++ mg/dL [facility] Blood, UA Negative Negative - 50 Bib/mcL [facility] Clarity, UA Clear [facility] Color, UA Yellow [facility] Glucose, UA Negative Negative - 1999(110) ++++ mg/dL [facility] Interpretation and review of laboratory results Abnormal [facility] Ketones, UA Negative Negative - 160(16) ++++ mg/dL [facility] Leukocytes, UA Positive Negative - 500+++ Alvaro/mcL [facility] Comment on above: small Nitrite, UA Negative Negative - Positive [facility] pH, UA 7.0 5 - 9 [facility] Healthcar e Protein, UA Negative Negative - 1999(20) ++++ mg/dL [facility] Spec Grav, UA 1.020 1 - 1.03 [facility] Urobilinogen, UA 0.2 0.2 - 12 mg/dL [facility] GLUCOSE TOLERANCE 3 HOURon 1 GLUCOSE TOLERANCE 3 HOUR High mg/dL [facility] Comment on above: GLU FAST 97H (<95) C ol: 05/01/24 0722 GLU 1HR 173 (<180) Col: 05/01/24 0823 GLU 2HR 162H (<155) Col: 05/01/24 0924 GLU 3HR 114 (<140) Col: 05/01/24 1022 Interpretation and review of laboratory results Abnormal [facility] e PAP ACOG PANEL 2: 21 to 29on 08-25-2022 . . Normal [facility] Comment on above: Performed By: #### 4 [id number] #### [facility] [address] [address] [address] Matias Shukla Age Gdln ACOG Testing 21- Normal [facility] Comment on above: Performed By: #### 4 [id number] #### [facility] [address] [place] [address] Dr. Matias Shukla DIAGNOSIS: Comment Normal [facility] Comment on above: Result Comment: NEGA TIVE FOR INTRAEPITHELIAL LESION OR MALIGNANCY. Performed By: #### 4 [id number] #### [facility] [address] [place] [address] Dr. Matias Shukla Methodology: Comment Normal [facility] Comment on above: Result Comment: This liquid based ThinPrep(R) pap test was screened with the use of an image guided system. Performed By: #### 4 [id number] #### [facility] [address] [place] [address] Dr. Matias Shukla Note: Comment Normal [facility] Comment on above: Result Comment: The Pap smear is a screening test designed to aid in the detection of premalignant and malignant conditions of the uterine cervix. It is not a diagnostic procedure and should not be used as the sole means of detecting cervical cancer. Both false-positive and false-negative reports do occur. . Performed By: #### 4 [id number] #### [facility] [address] [place] [address] Dr. Matias Shukla Performed by: Comment Normal [facility] Comment on above: Result Comment: Monika Prieto, Autopsy Pathologist (ASCP) Performed By: #### 4 [id number] #### [facility] [address] [place] [address] Dr. Matias Shukla Reflex Criteria: Comment Normal [facility] Comment on above: Result Comment: The HPV DNA reflex criteria were not met with this specimen result therefore, no HPV testing was performed. . Performed By: #### 4 [id number] #### [facility] [address] [place] [address] Dr. Matias Shukla Specimen adequacy: Comment Normal [facility] Comment on above: Result Comment: Sati sfactory for evaluation. Endocervical and/or squamous metaplastic cells (endocervical component) are present. Performed By: #### 4 [id number] #### [facility] [address] [place] [address] Dr. Matias Shukla MUMPS IGG BLDon 02-07-2022 MUMPS IGG 1.14 Normal [facility] Comment on above: Result Comment: RAN IN TRIPLICATE NORMAL RANGES: < OR = 0.9O NEGATIVE ; NO DETECTABLE IgG ANTIBODY TO MUMPS 0.91 - 1.09 EQUIVOCAL; REPEAT TESTING SUGGESTED > OR = 1.10 POSITIVE ; INDICATES PRESENCE OF DETECTABLE IgG ANTIBODY TO MUMPS Performed By: #### 1 0055, [id number], 29621, 05244 #### [facility] [address] RUBELLAon 02-07-2022 RUBELLA 1.73 Normal [facility] [facility] Comment on above: Result Comment: NORM AL RANGES: < OR = 0.9O NEGATIVE ; NO DETECTABLE IgG ANTIBODY TO RUBELLA 0.91 - 1.09 EQUIVOCAL; REPEAT TESTING SUGGESTED > OR = 1.10 POSITIVE ; INDICATES PRESENCE OF DETECTABLE IgG ANTIBODY TO RUBELLA VIRUS Performed By: #### 1 0055, 79566, 67855, 26136 #### [facility] [address] RUBEOLA MEASLES IGGon 2021 RUBEO IGG 4.62 Normal [facility] [facility] Comment on above: Result Comment: NORM AL RANGES: < OR = 0.9O NEGATIVE ; NO DETECTABLE IgG ANTIBODY TO RUBEOLA 0.91 - 1.09 EQUIVOCAL; REPEAT TESTING SUGGESTED > OR = 1.10 POSITIVE ; INDICATES PRESENCE OF DETECTABLE IgG ANTIBODY TO RUBEOLA Performed By: #### 1 0055, 42772, 76948, 71985 #### [facility] [address] TB QUANTIFERON PLUSon 2021 MITOGEN MINUS NIL 8.15 IU/mL Normal [facility] Comment on above: Performed By: #### 3 1592 #### [facility] [address] NIL 0.03 IU/mL Normal [place] [facility] Comment on above: Performed By: #### 3 1592 #### [facility] [address] [place] [address], [facility] TB QUANTIFERON Negative Normal NEGATIVE [facility] Comment on above: Result Comment: Eric tiferon TB Gold Interpretation (IU/mL): NEGATIVE: M. tuberculosis infection not likely. Nil: <=8.0 TB1 Antigen minus Nil ([id number]): <0.35 OR >=0.35; and <25% of Nil value. TB2 Antigen minus Nil (WJ2IC-UGV): <0.35 OR >=0.35; and <25% of Nil [...] (https://www.cdc.gov/tb/publications/guidlines/default.htm Performed By: #### 3 1592 #### [facility] [address] [place] [address], [place] TB1 AG 0.03 IU/mL Normal [facility] [facility] Comment on above: Performed By: #### 3 1592 #### [facility] [address] [place] [address], [place] TB1 AG MINUS NIL 0.00 IU/mL Normal [facility] Comment on above: Performed By: #### 3 1592 #### [facility] [address] [place] [address], [place] TB2 AG 0.04 IU/mL Normal [facility] Comment on above: Performed By: #### 3 1592 #### [facility] [address] [place] [address], [place] TB2 AG MINUS NIL 0.01 IU/mL Normal [facility] Comment on above: Performed By: #### 3 1592 #### [facility] [address] [place], [place] [id number] [place] [address] VARICELLA ZOSTER IGGon 02-07 VARICELLA IGG 2.60 Normal [facility] Comment on above: Result Comment: NORM AL RANGES: < OR = 0.9O NEGATIVE ; NO DETECTABLE IgG ANTIBODY TO VARICELLA-ZOSTER VIRUS 0.91 - 1.09 EQUIVOCAL; REPEAT TESTING SUGGESTED > OR = 1.10 POSITIVE ; INDICATES PRESENCE OF DETECTABLE IgG ANTIBODY TO VARICELLA-ZOSTER VIRUS Performed By: #### 1 0055, 61183, 08433, 36484 #### [facility] [address] [place], [place] [id number] [place] [address] HPV DNA High Riskon 08-19-19 HPV Interp [facility] Comment on above: Result Comment: This [...] purposes. Performed By: #### H PVH #### [address] [id number] Staffing Operations Manager: Rickey Watson MD HPV Type 16 Not detected Normal [facility] Comment on above: Performed By: #### H PVH #### [facility] [address] [place] [address] [id number] Staffing Operations Manager: Rickey Watson MD HPV Type 18 Not detected Normal [facility] Comment on above: Performed By: #### H PVH #### [facility] [address] [place] [address] [id number] Staffing Operations Manager: Rickey Watson MD Other High Risk HPV Not detected Normal NOTDET [facility] Comment on above: Performed By: #### H PVH #### [address] [address] Staffing Operations Manager: Rickey Watson MD HPV DNA High Riskon 08-18-19 Source .GENITAL - NOT SPECIFIED Normal [facility] Comment on above: Performed By: #### H PVH #### [address] [address] Staffing Operations Manager: Rickey Watson MD HPV Sample .THIN PREP Normal [facility] Comment on above: Performed By: #### H PVH #### [address] [address] Staffing Operations Manager: Rickey Watson MD Chlamydia/GC DNA, TPon 08-10 Chlamydia Probe, TP Negative Normal NEG [facility] Comment on above: Result Comment: CHLA [...] target. Performed By: #### C YTCGP #### [address] [address] Staffing Operations Manager: Rickey Watson MD Gonorrhea Probe, TP Negative Normal NEG [facility] Comment on above: Result Comment: NEIS [...] target. Performed By: #### C YTCGP #### [address] [address] Staffing Operations Manager: Rickey Watson MD Cytologyon 08-08-2021 Cytology (NOTE) INTERPRETATION Cervical material, (ThinPrep vial, Imaging-assisted review): Specimen Adequacy: Satisfactory for evaluation. - Endocervical/transfor mation zone component present. - Scant cellularity. Descriptive Diagnosis: Atypical squamous cells of undetermined significance (ASC-US). Autopsy Pathologist: AMANDA Michaels M.D. Electronically Signed Out rdd/08/18/2021 Amendments Originally Reported As: Procedure/Addendum Source: Clinical History LMP: Patient Name: Med Rec: Path Number: Fax: Normal [facility] Comment on above: Performed By: #### P PPVP #### [address] [address] Staffing Operations Manager: Rickey Watson MD QuantiFERON TBon 12-24-2020 Quanti Binu minus NIL 8.10 IU/mL Normal [facility] Comment on above: Performed By: #### R UBI, LUIZ, MARITZA, VZI #### [address] [phone] Staffing Operations Manager: Rickey Watson MD #### AQF #### [facility] [address] [place] [address] Staffing Operations Manager: Mark Grossman MD Quanti TB Gold Plus Negative Normal Negative [facility] Comment on above: Result Comment: (NOT [...] Mycobacterium tuberculosis Infection --- [place], 2010 (http://www.cdc.gov/mmwr/preview/mmwrhtml/pr5074l7.htm), for more information concerning test performance in low-prevalence populations and use in occupational screening. Performed By: #### R LUIZ MCKEON MUI, VZI #### [address] [id number] Staffing Operations Manager: Rickey Watson MD #### AQF #### [address] [phone] Staffing Operations Manager: Mark Grossman MD Quanti TB1 minus NIL 0.00 IU/mL Normal 0.00-0.34 [facility] Comment on above: Performed By: #### R LUIZ MCKEON MUI, VZI #### [address] [phone] Staffing Operations Manager: Rickey Watson MD #### AQF #### [address] [address] Staffing Operations Manager: Mark rGossman MD Quanti TB2 minus NIL 0.01 IU/mL Normal 0.00-0.34 [facility] Comment on above: Performed By: #### R LUIZ MCKEON MUI, VZI #### [address] [phone] Staffing Operations Manager: Rickey Watson MD #### AQF #### [facility] [address] [place] [address] [phone] Staffing Operations Manager: Mark Grossman MD QuantiFERON NIL 0.01 IU/mL Normal [facility] Comment on above: Result Comment: (NOT E) Performed By: [facility] [address] [place] [address] Jewelry Maker: Carolyn Wei MD Performed By: #### R UBI, LUIZ, MARITZA, VZI #### [address] [address] Staffing Operations Manager: Rickey Watson MD #### AQF #### [facility] [address] [place] [address] Staffing Operations Manager: Mark Grossman MD Measles (Rubeola) Imon 12-22 Measles (Rubeola) Im 3.68 Normal >1.09 [facility] Comment on above: Result Comment: Interpretation: IMMUNE Reference Range: <0.91 Not Immune 0.91-1.09 Equivocal >1.09 Immune Performed By: #### R UBI, LUIZ, MARITZA, VZI #### [address] [address] Staffing Operations Manager: Rickey Watson MD #### AQF #### [address] [phone] Staffing Operations Manager: Mark Grossman MD Mumps,Immun,Abon 12-22-2020 Mumps,Immun,Ab 1.16 Normal >1.09 [facility] Comment on above: Result Comment: Interpretation: IMMUNE Reference Range: <0.91 Not Immune 0.91-1.09 Equivocal >1.09 Immune Performed By: #### R UBI, LUIZ, MARITZA, VZI #### [address] [address] Staffing Operations Manager: Rickey Watson MD #### AQF #### [facility] [address] [place], [place] [phone] Staffing Operations Manager: Mark Grossman MD VZ Immunityon 12-22-2020 VZ Immunity 2.24 Normal >1.09 [facility] Comment on above: Result Comment: Interpretation: IMMUNE Reference Range: <0.91 Not Immune 0.91-1.09 Equivocal >1.09 Immune Performed By: #### R LUIZ MCKEON, MARITZA, VZI #### [facility] [address] [place] [address] [phone] Staffing Operations Manager: Rickey Watson MD #### AQF #### [facility] [address] [place] [address] Staffing Operations Manager: Mark Grossman MD Rubella Ab, IgGon 12-21-2020 Rubella Ab, IgG 16.2 IU/mL Normal [facility] Comment on above: Result Comment: REFERENCE RANGE: <5.0 NON-REACTIVE (non-immune) 5.0 TO 9.9 EQUIVOCAL >=10.0 REACTIVE (immune) Performed By: #### R LUIZ MCKEON, MARITZA, VZI #### [facility] [address] [place] [address] Staffing Operations Manager: Rickey Watson MD #### AQF #### [facility] [address] [place] [address] Staffing Operations Manager: Mark Grossman MD Rubella antibody, IgGOrdered By: Jimmy Meehan on 12-21-2020 Rubella virus IgG Ql (S) 16.2 IU/mL Daily Pic Phone: Comment on above: REFERENCE RANGE: <5.0 NON-REACTIVE (non-immune) 5.0 TO 9.9 EQUIVOCAL >=10.0 REACTIVE (immune) Daily Pic Phone: Lab - Toxicology Resultson 0 03-11-2020 Lab - Toxicology Results [id number] [facility] QuantiFERON TB Gold (In Tube ) LCon 03-08-2020 QuantiFERON Criteria [facility] Comment on above: Result Comment: The QuantiFERON-TB Gold Plus result is determined by subtracting the Nil value from either TB antigen (Ag) tube. The mitogen tube serves as a control for the test. Performed By: #### 4 [id number], [id number] #### [facility] (DEFAULT) [address] [place] [phone] QuantiFERON M. tuberculosis1 Ag Value LC 0.09 IU/mL [facility] Comment on above: Performed By: #### 4 [id number], [id number] #### [facility] (DEFAULT) [address] [place] [address] QuantiFERON M. tuberculosis2 Ag Value LC 0.08 IU/mL [facility] Comment on above: Performed By: #### 4 [id number], [id number] #### [facility] (DEFAULT) [address] [place] [address] QuantiFERON Mitogen Value LC >10.00 [facility] Comment on above: Result Comment: Perf ormed At: [address] [id number] Kat Arevalo PhD Ph:[phone] Performed By: #### 4 [id number], [id number] #### [facility] (DEFAULT) [address] [place] [address] QuantiFERON Nil Value LC 0.01 IU/mL [facility] Comment on above: Performed By: #### 4 [id number], [id number] #### [facility] (DEFAULT) [address] [place] [address] QuantiFERON-TB Gold Plus LCo n 03-08-2020 QuantiFERON-TB Gold Plus LC Negative Negative [facility] Comment on above: Result Comment: Perf ormed At: [id number] [place], [place] [id number] Kat Arevalo PhD Ph:[phone] Performed By: #### 4 [id number], [id number] #### [facility] (DEFAULT) [address] [place] [address] QuantiFERON Incubation LC Incubation performed. [facility] Comment on above: Result Comment: Perf ormed At: [id number] [place], [place] [id number] Kat Arevalo PhD Ph:[phone] Performed By: #### 4 [id number], [id number] #### [facility] (DEFAULT) [address] [place] [address] HBSab Qnt LCon 03-05-2020 Hep B Surf Ab Quant LC 145.6 mIU/mL Immunity>9.9 [facility] Comment on above: Result Comment: Stat us of Immunity Anti-HBs Level Inconsistent with Immunity 0.0 - 9.9 Consistent with Immunity >9.9 Performed At: [address] [id number] Kat Arevalo PhD Ph:[phone] Performed By: #### 1 [id number], [id number] #### [facility] (DEFAULT) [address] [place] [address] Measles/Mumps/Rubella Immuni ty LCon 03-05-2020 Mumps Abs, IgG LC 69.5 AU/mL Immune >10.9 [facility] Comment on above: Result Comment: Nega tive <9.0 Equivocal 9.0 - 10.9 Positive >10.9 A positive result generally indicates past exposure to Mumps virus or previous vaccination. Performed At: [address] [id number] Kat Arevalo PhD Ph:[phone] Performed By: #### 1 [id number], [id number] #### [facility] (DEFAULT) [address] [place] [address] Rubella Antibodies, IgG LC 1.75 index Immune >0.99 [facility] Comment on above: Result Comment: Non- immune <0.90 Equivocal 0.90 - 0.99 Immune >0.99 Performed By: #### 1 [id number], [id number] #### [facility] (DEFAULT) [address] [place] [address] Rubeola Ab, IgG, EIA LC >300.0 Immune >16.4 [facility] Comment on above: Result Comment: Nega tive <13.5 Equivocal 13.5 - 16.4 Positive >16.4 Presence of antibodies to Rubeola is presumptive evidence of immunity except when acute infection is suspected. Performed By: #### 1 [id number], [id number] #### [facility] (DEFAULT) [address] [place] [address] Nicotine Metabolite, Urine L Con 03-05-2020 Cotinine LC Negative Uglxci=[id number] [facility] Comment on above: Result Comment: Perf ormed At: [facility] [place] [address] [place], [place] [id number] Jose Gambinoei PhD Ph:[phone] Performed By: #### 1 [id number] #### [facility] (DEFAULT) [address] [place] [address] Vital Signs Date Time Vital Sign Value Performing Clinician Susy ramon 07-03-2024 11:01-0500 Body mass index (BMI) [Ratio] 41.12 kg/m2 Jasiel Deshaun DO Work Phone: [facility] 07-03-2024 11:01-0500 Body weight 101.97 kg Jasiel Deshaun DO Work Phone: [facility] 07-03-2024 11:01-0500 Diastolic blood pressure 70 mm[Hg] Jasiel Deshaun DO Work Phone: [facility] 07-03-2024 11:01-0500 Systolic blood pressure 120 mm[Hg] Jasiel Deshaun DO Work Phone: [facility] [facility] 06-19-2024 10:40-0500 Body mass index (BMI) [Ratio] 40.02 kg/m2 Suri LORENZO Work Phone: [facility] 06-19-2024 10:40-0500 Body weight 99.25 kg Suri LORENZO Work Phone: [facility] 06-19-2024 10:40-0500 Diastolic blood pressure 74 mm[Hg] Suri LORENZO Work Phone: [facility] 06-19-2024 10:40-0500 Systolic blood pressure 110 mm[Hg] Suri LORENZO Work Phone: [facility] 06-05-2024 11:46-0500 Body mass index (BMI) [Ratio] 39.69 kg/m2 Suri Canales PA Work Phone: [facility] 06-05-2024 11:46-0500 Body weight 98.43 kg Suri Parker PA Work Phone: [facility] 06-05-2024 11:46-0500 Diastolic blood pressure 80 mm[Hg] Suri Parker PA Work Phone: [facility] 06-05-2024 11:46-0500 Systolic blood pressure 114 mm[Hg] Suri Parker PA Work Phone: [facility] 05-22-2024 09:57-0400 Body mass index (BMI) [Ratio] 39.1 kg/m2 Jasiel Deshaun DO Work Phone: [facility] 05-22-2024 09:57-0400 Body weight 96.98 kg Jasiel Deshaun DO Work Phone: [facility] 05-22-2024 09:57-0400 Diastolic blood pressure 72 mm[Hg] Jasiel Deshaun DO Work Phone: [facility] 05-22-2024 09:57-0400 Systolic blood pressure 110 mm[Hg] Jasiel Deshaun DO Work Phone: [facility] 05-08-2024 09:31-0400 Body mass index (BMI) [Ratio] 38.59 kg/m2 Suri Canales PA Work Phone: [facility] 05-08-2024 09:31-0400 Body weight 95.71 kg Suri Canales PA Work Phone: [facility] 05-08-2024 09:31-0400 Diastolic blood pressure 78 mm[Hg] Suri Canales PA Work Phone: [facility] 05-08-2024 09:31-0400 Systolic blood pressure 120 mm[Hg] Suri Canales PA Work Phone: [facility] Healthcare Encounters Encounter Date Encounter Type Care Provider Facility Start: 07-10-2024 End: 07-11-2024 External Result Encounter Jasiel Deshaun DO Work Phone: [facility] Unsolicited Start: 07-10-2024 End: 07-11-2024 External Result Encounter Jasiel Deshaun DO Work Phone: [facility] Unsolicited Start: 07-10-2024 End: 07-10-2024 ambulatory JASIEL DESHAUN Not Available Start: 07-03-2024 End: 07-03-2024 flow sheet Jasiel Deshaun DO Work Phone: [facility] Comment on above: 36 weeks gestation o f ; Third trimester Start: 07-03-2024 End: 07-03-2024 ambulatory JASIEL DESHAUN Not Available Start: 06-19-2024 End: 06-19-2024 Bamboo flowsheet Suri LORENZO Work Phone: [facility] Start: 06-19-2024 End: 06-19-2024 Bamboo flowsheet Suri LORENZO Work Phone: [facility] Start: 06-19-2024 End: 06-19-2024 flow sheet Suri LORENZO Work Phone: [facility] Comment on above: Third trimester preg jeffrey; 34 weeks gestation of Start: 06-19-2024 End: 06-19-2024 ambulatory SURI CANALES Not Available Start: 06-05-2024 End: 06-05-2024 Bamboo flowsheet Suri LORENZO Work Phone: [facility] Start: 06-05-2024 End: 06-05-2024 Bamboo flowsheet Suri LORENZO Work Phone: [facility] Start: 06-05-2024 End: 06-05-2024 flow sheet Suri LORENZO Work Phone: [facility] Comment on above: 32 weeks gestation o f ; Third trimester Start: 06-05-2024 End: 06-05-2024 ambulatory SURI CANALES Not Available Start: 05-22-2024 End: 05-22-2024 Bamboo flowsheet Jasiel Deshaun DO Work Phone: [facility] Start: 05-22-2024 End: 05-22-2024 Bamboo flowsheet Jasiel Deshaun DO Work Phone: [facility] Start: 05-22-2024 End: 05-22-2024 flow sheet Jasiel Deshaun DO Work Phone: [facility] Comment on above: 30 weeks gestation o f ; Third trimester ; Gestational diabetes mellitus (GDM), antepartum, gestational diabetes method of control unspecified Start: 05-22-2024 End: 05-22-2024 ambulatory JASIEL DESHAUN Not Available Start: 05-08-2024 End: 05-08-2024 Bamboo flowsheet Suri LORENZO Work Phone: [facility] Start: 05-08-2024 End: 05-08-2024 Bamboo flowsheet Suri LORENZO Work Phone: [facility] Start: 05-08-2024 End: 05-08-2024 flow sheet Suri LORENZO Work Phone: [facility] Comment on above: 28 weeks gestation o f ; Third trimester ; size inconsistent with dates Start: 05-08-2024 End: 05-08-2024 ambulatory SURI CANALES Not Available Start: 05-01-2024 End: 05-01-2024 Clinisync Result Encounter Jasiel Deshaun DO Work Phone: [facility] External Department Unsolicited Start: 05-01-2024 End: 05-01-2024 Clinisync Result Encounter Jasiel Deshaun DO Work Phone: [facility] External Department Unsolicited Start: 04-17-2024 End: 04-17-2024 ambulatory JASIEL DESHAUN Not Available Start: 04-10-2024 End: 04-10-2024 ambulatory JASIEL R DESHAUN [facility] Start: 03-13-2024 End: 03-13-2024 ambulatory SURI CANALES Not Available Start: 02-13-2024 End: 02-13-2024 ambulatory JASIEL DESHAUN Not Available Start: 01-17-2024 End: 01-17-2024 ambulatory JASIEL DESHAUN Not Available Start: 08-22-2023 End: 08-22-2023 ambulatory JASIEL DESHAUN Not Available Start: 08-21-2022 End: 08-21-[address] BELLAMY [facility] Facility: Start: 08-08-2021 End: 08-09-2021 ambulatory SHANTELLE HDEZ [facility] Start: 12-21-2020 End: 12-22-2020 ambulatory JIMMY SHAIKHKENYETTA [facility] Start: 12-21-2020 End: 12-21-2020 Subsequent hospital visit by physician Shantelle Dean PA-C Work Phone: [facility] Start: 03-18-2020 End: 03-18-2020 Subsequent hospital visit by physician Shantelle LLOYD [place] [facility] Procedures Date Procedure Procedure Detail Performing Clinician Start: 07-10-2024 RECURRENT VAGINITIS (HTRX) Jasiel Deshaun DO Work Phone: Start: 07-03-2024 Urnls dip stick/tabl et rgnt [...] - Td) D[facility]Tdap[facility]Td [facility] Start: 10-23-2024 End: 10-23-2024 Patient encounter procedure 10/23/2024 10:20 AM EDT Office Visit [facility] [address] [place] [id number] Jasiel Meade, DO [address] [place] [address] [facility] Start: 08-25-2024 End: 08-25-2024 Patient encounter procedure 08/25/2024 9:00 AM EST Office Visit [facility] [address] [place] [phone] Jasiel Meade, DO [address] [place] [address] [facility] Start: 07-10-2024 End: 07-10-2024 Patient encounter procedure 07/10/2024 10:30 AM EST Routine [facility] [address] [facility] [phone] Jasiel Meade, DO [address] [place] [address] [facility] Start: 07-03-2024 End: 07-03-2025 Strep B DNA probe, amplification Strep B DNA probe, amplification Lab Routine Third trimester Expected: 07/03/2024 (Approximate), Expires: 07/03/2025 [facility] Work Phone: Comment on above: Expected: 07/03/2024 (Approximate), Expires: 07/03/2025 Start: 07-03-2024 End: 07-03-2024 Patient encounter procedure 07/03/2024 10:40 AM EST Routine [facility] [address] [place] [phone] Jasiel Meade, DO [address] [facility] [address] [place], [place] [id number] [facility] Start: 07-02-2024 End: 07-02-2024 Professional / ancillary services management 07/02/2024 2:00 PM EST Ancillary Procedure [facility] [address] [place] [phone] [facility] Start: 06-19-2024 End: 06-19-2024 [...] control unspecified Expected: 05/22/2024 (Approximate), Expires: 05/22/2025 [facility] Comment on above: Expected: 05/22/2024 (Approximate), [...] EDT Ancillary Procedure [facility] [address] [facility] [place] [address] [facility] Start: 05-08-2024 End: 05-08-2025 US for US OB SCAN FOR GROWTH Imaging Routine size inconsistent with dates Expected: 05/08/2024 (Approximate), Expires: 05/08/2025 [facility] Work Phone: Comment on above: Expected: 05/08/2024 (Approximate), Expires: 05/08/2025 Start: 05-08-2024 End: 05-08-2024 Patient encounter procedure [facility] Comment on above: Arrived Start: 03-30-2024 Influenza vaccination Influenza Vacc ine (#1) [facility] Start: 03-18-2023 Screening for malign ant neoplasm of cervix [facility] Phone: Start: 06-12-2021 Screening for malign ant neoplasm of cervix Cervical cancer screen [place], [place] Start: 03-30-2021 Influenza vaccination Flu vacc ine (Season Ended) [facility] [employer] Phone: Start: 03-30-2020 Influenza vaccination Flu vaccine (# 1) [place], [place] Start: 06-12-2019 Screening for Chlamy flaco trachomatis Chlamydia screen [place], [place] Start: 09-13-2011 Hepatitis A vaccine (2 of 2 - 2-dose series) Hepatitis A vaccine (2 of 2 - 2-dose series) [place], [place] Start: 2007 COVID-19 Vaccine (1) COVID-19 Vaccin e (1) [facility] [employer] Phone: Start: 1995 Hepatitis C screening Hepatitis C sc reen [facility] [employer] Phone: End: 12-21-2020 Mumps Antibody, IgG Mumps Antibody, IgG Lab Routine Once for 1 Occurrences starting 12/21/2020 until 12/21/2020 [facility] Phone: Comment on above: Once for 1 Occurrenc es starting 12/21/2020 until 12/21/2020 Mumps Antibody, IgG Mumps Antibo dy, IgG Lab Routine 12/21/2020 4:[address] [facility] Phone: End: 12-21-2020 Quantiferon TB Gold Quantiferon TB Gold Microbiology Routine Once for 1 Occurrences starting 12/21/2020 until 12/21/2020 [employer] Phone: Comment on above: Once for 1 Occurrenc es starting 12/21/2020 until 12/21/2020 Quantiferon TB Gold Quantiferon TB Gold Microbiology Routine 12/21/2020 4:27 PM EDT [facility] Phone: End: 12-21-2020 Rubeola Antibody, IgG Rubeola Antibody, IgG Lab Routine Once for 1 Occurrences starting 12/21/2020 until 12/21/2020 [employer] [facility] Phone: Comment on above: Once for 1 Occurrenc es starting 12/21/2020 until 12/21/2020 Rubeola Antibody, IgG Rubeola An tibody, IgG Lab Routine 12/21/2020 4:27 PM EDT [facility] Phone: End: 12-21-2020 Varicella Zoster Antibody, IgG Varicella Zoster Antibody, IgG Lab Routine Once for 1 Occurrences starting 12/21/2020 until 12/21/2020 [employer] Phone: Comment on above: Once for 1 Occurrenc es starting 12/21/2020 until 12/21/2020 Varicella Zoster Antibody, IgG Varicella Zoster Antibody, IgG Lab Routine 12/21/2020 4:27 PM EDT [facility] Phone: Immunizations Immunization Date Immunization Notes Care Provider [facility] 06-28-2021 influenza virus vacc ine, unspecified formulation [facility] [employer] Work Phone: [facility] 03-09-2020 tuberculin skin test ; purified protein derivative solution, intradermal [facility], [place] 04-28-2019 influenza, injectabl e, quadrivalent, preservative free [facility], [place] 06-12-2018 influenza, injectabl e, quadrivalent, preservative free [facility], [place] 05-01-2018 tuberculin skin test ; purified protein derivative solution, intradermal [facility], [place] 09-12-2017 hepatitis B vaccine, adult dosage [facility], [place] 04-13-2017 Human Papillomavirus 9-valent vaccine [facility], [place] 04-10-2017 hepatitis B vaccine, adult dosage [facility], [place] 03-07-2017 hepatitis B vaccine, adult dosage [facility], [place] 03-07-2017 meningococcal polysaccharide (groups A, C, Y and W-135) diphtheria toxoid conjugate vaccine (MCV4P) [facility], [place] 03-07-2017 tuberculin skin test ; purified protein derivative solution, intradermal [facility], [place] 02-26-2017 tetanus toxoid, redu juve diphtheria toxoid, and acellular pertussis vaccine, adsorbed [facility], [place] 02-26-2017 tuberculin skin test ; purified protein derivative solution, intradermal [facility], [place] 08-13-2014 Human Papillomavirus 9-valent vaccine [facility], [place] 04-01-2014 meningococcal polysaccharide (groups A, C, Y and W-135) diphtheria toxoid conjugate vaccine (MCV4P) [facility], [place] 02-10-2014 Human Papillomavirus 9-valent vaccine [place], [place] Payers Date Payer Category Payer Private Health Insurance [employer] [id number] 2022 Unknown [employer] [id number] 2022-Present [address] [place] [address] [id number] 2022 Unknown [id number] 2021 Unknown [id number] 2016 Private Health Insurance AETZE[employer] FIERRO [id number] 2016-Present [phone] [address] [place] [address] [id number] 1995 Unknown [id number] [id number]. 175 1995 Unknown [id number] 2.16.840.1.062942.3.579.2. 593 1995 Unknown [id number] 2.16.840.1.731232.3.579.2. 1286 1995 Unknown [id number] 2.16.840.1.629266.3.579.2. 1259 1995 Unknown [id number] 2.16.840.1.677256.3.579.2. 1259 1995 Unknown [id number] 2.16.840.1.486744.3.579.2. 1259 1995 Unknown [id number] 2.16.840.1.633849.3.579.2. 1259 1995 Unknown [id number] 2.16.840.1.885566.3.579.2. 1259 1995 Unknown [id number] 2.16.840.1.525586.3.579.2. 1259 1995 Unknown [id number] 2.16.840.1.727008.3.579.2. 1259 1995 Unknown [id number] 2.16.840.1.673190.3.579.2. 9 1995 Unknown [id number] 2.16.840.1.647816.3.579.2. 9 1995 Unknown [id number] 2.16.840.1.074516.3.579.2. 9 1995 Unknown [id number] [id number]. 1259 1959 Unknown [id number] Social History Date Type Detail Facility Start: 03-18-2020 End: 01-17-2024 Tobacco smoking status [facility] Never smoker [facility] Start: 03-18-2020 End: 01-17-2024 Tobacco use and exposure Never used [facility] Start: 02-05-2017 Alcohol Comment rarely CSR Sex Assigned At Not on file CSR Start: 1995 Sex Assigned At Female [employer] Work Phone: Start: 04-17-2024 End: 07-03-2024 Alcoholic beverage intake Ex-drinker (finding) [facility] Start: 01-17-2024 End: 04-17-2024 Alcoholic beverage intake [facility] Start: 01-17-2024 Tobacco use panel [facility] Start: 11-04-2023 [facility] Start: 02-20-2023 Gender identity Identifies as female gender (finding) [facility] Start: 02-20-2023 Sexual orientation Heterosexual (finding) [facility] Medical Equipment Procedure Code Equipment Code Equipment Original Text Equipment Identifier Dates Inject 1 each un flory the skin See administration instructions Use four times daily with insulin pen. [id number] Start: 05-26-2024 End: 06-25-2024 History of Present illness Narrative 07-03-2024 Shima العراقي LPN - 07/03/2024 10:40 AM EST Note Date & Type Note Facility 07-03-2024 History of Presen t illness Narrative Reason for Appointment: Patient ID: oHlli Jenkins is a 28 y.o. female who [...] nursing note reviewed. Exam conducted with a help desk agent present. Vitals: Estimated body mass index is [...] [facility] History of Present illness Narrative 06-19-2024 [...] nursing note reviewed. Exam conducted with a help desk agent present. Vitals: Estimated body mass index is [...] nursing note reviewed. Exam conducted with a help desk agent present. Vitals: Estimated body mass index is [...] Jasiel Meade DO documented in this encounter [facility] History of Present illness Narrative 05-08-2024 [...] nursing note reviewed. Exam conducted with a help desk agent present. Vitals: Estimated body mass index is [...] incidental documented in this encounter [facility] Evaluation [...] Documents on File Type Date Recorded Patient Ammonia Solution Preparer Expl anation ACP-Advance Directive ACP-Power of Donor Processor Additional Source Comments INFORMATION SOURCE (unrecogn ized section and content) DATE CREATED AUTHOR 03/12/2020 [facility] DATE CREATED AUTHOR AUTHOR'S ORGANIZ ATION 08/20/2021 [facility] DATE CREATED AUTHOR AUTHOR'S ORGANIZ ATION 02/18/2022 [facility] DATE CREATED AUTHOR AUTHOR'S ORGANIZ ATION 08/25/2022 [facility] DATE CREATED AUTHOR AUTHOR'S ORGANIZ ATION 04/12/2024 [facility] DATE CREATED AUTHOR AUTHOR'S ORGANIZ ATION 07/13/2024 [facility] dical Specialists [facility] Care Teams (unrecognized sec tion and content) Mother Helper Relationship Specialty [place] [address] [place] [address] PCP - General Family Medicine 03/22/23 Mother Helper Relationship Specialty [place] [address] [place] [address] PCP - General Family Medicine 03/22/23 Mother Helper Relationship Specialty [place] [address] [place] [address] PCP - General Family Medicine 03/22/23 Suri Canales PA [address] [place] [address] [place] [address] PCP - Medical [employer] 07/30/22 07/29/99 Mother Helper Relationship Specialty [place] [address] [place] [address] PCP - General Family Medicine 03/22/23 Suri Canales PA [address] [place] [address] [place] [address] PCP - Medical [employer] 07/30/22 07/29/99 Mother Helper Relationship Specialty [place] [address] [place] [address] PCP - General Family Medicine 03/22/23 Suri Canales [place] [facility] [place] [address] PCP - Medical [employer] 07/30/22 07/29/99 Mother Helper Relationship Specialty [place] [address] [place] [address] PCP - General Family Medicine 03/22/23 Suri Canales PA [facility] [place], [facility] PCP - Medical [employer] 07/30/22 07/29/99 Mother Helper Relationship Specialty [place] [address] [place] [address] PCP - General Family Medicine 03/22/23 Suri Canales [place] [facility] [place] [address] PCP - Medical [employer] 07/30/22 07/29/99 Mother Helper Relationship Specialty Start [place] [address] [place] [address] PCP - General Family Medicine 03/22/23 Suri Canales [place] [facility] [place] [address] PCP - Medical [employer] 07/30/22 07/29/99 Mother Helper Relationship Specialty Start [place] [address] [place] [address] PCP - General Family Medicine 03/22/23 Suri Canales PA [address] [place] [address] [place] [address] PCP - Medical [employer] 07/30/22 07/29/99 Reason for Visit (unrecogniz [...] BE BASED ON THE PRIMARY CLINICAL RECORDS. [employer] provides no warranty or guarantee of the accuracy or completeness of information in this document.
[2024-07-14] MEDS: 0.9 % SODIUM CHLORIDE 1,000 ML 125 ML IV ×2 (05:43→12:38)
[2024-07-14 05:51] LABS: Hematocrit 37.8 % (36.0-48.0); Hemoglobin 12.9 g/dL (12.0-16.0); Mean Corpuscular HGB Conc 34.1 g/dL (29.9-35.2); Mean Corpuscular Hemoglobin 30.6 pg (26.7-34.0); Mean Corpuscular Volume 89.8 fL (81.0-99.0); Mean Platelet Volume 11.1 fL (9.5-13.5); Platelet Count 226 10^3/uL (150-450); Red Blood Count 4.21 10^6/uL (4.20-5.40); Red Cell Distribution Width 12.4 % (11.0-15.0); White Blood Count 12.1 10^3/uL (4.0-11.0)
[2024-07-14 06:02] LABS: Amphetamine Screen Urine NEGATIVE (NEGATIVE); Barbiturates Screen Urine NEGATIVE (NEGATIVE); Benzodiazepines Screen Urine NEGATIVE (NEGATIVE); Buprenorphine Screen Urine NEGATIVE (NEGATIVE); Cannabinoid Screen Urine NEGATIVE (NEGATIVE); Cocaine Screen Urine NEGATIVE (NEGATIVE); Methadone Screen Urine NEGATIVE (NEGATIVE); Methamphetamines Screen Urine NEGATIVE (NEGATIVE); Opiate Screen Urine NEGATIVE (NEGATIVE); Oxycodone Screen Urine NEGATIVE (NEGATIVE); Phencyclidine Screen Urine NEGATIVE (NEGATIVE); Tricyclic Antidepressant Urine NEGATIVE (NEGATIVE)
[2024-07-14] MEDS: OXYTOCIN/0.9 % SODIUM CHLORIDE 10 UNITS/500 ML PLAST..BAG 6 UNIT IV (06:15)
[2024-07-14] MEDS: 0.9 % SODIUM CHLORIDE 1,000 ML 1000 ML IV (09:54)
[2024-07-14] MEDS: ROPIVACAINE HCL/PF 400 MG/200 ML PREMIX 6 MG EPIDURAL (10:06)
[2024-07-14] MEDS: OXYTOCIN/0.9 % SODIUM CHLORIDE 20 UNITS/1,000 ML PLAST..BAG 125 UNIT IV (13:25)
[2024-07-14] MEDS: LIDOCAINE HCL 1% 200 MG/20 ML MDV INJ (13:25)
--- NOTE | 2024-07-14 13:41 | PM.OBPRCVD ---
Procedure Intrapartal events: None Induction method: per pitocin protocol Delivery augmentation: rupture of membranes and pitocin Delivery monitor: external FHT and external uterine Route of delivery: Episiotomy Description: none L&D Laceration Description: periurethral - 1st degree and perineal - 1st degree Delivery repair: Vicryl Estimated blood loss (mL): 350 Anesthesia type: Epidural Disposition: floor Infant Delivery date: 07/14/24 Gender: male presentation: vertex Placental delivery description: Spontaneous cord description: 3 Vessels
[2024-07-14] MEDS: GLYCERIN/WITCH HAZEL PADS 1 PAD TOPICAL (13:57)
[2024-07-14] MEDS: BENZOCAINE/MENTHOL 85 GRAM SPRAY BOTTLE 1 APPLIC TOPICAL (13:57)
[2024-07-14] MEDS: KETOROLAC TROMETHAMINE 30 MG/ML VIAL IVP (13:58)
--- NOTE | 2024-07-14 15:04 | PC.NURSE ---
slight perineal swelling.
--- NOTE | 2024-07-14 15:07 | PC.NURSE ---
; RN assists with latch.
--- NOTE | 2024-07-14 17:36 | PC.NURSE ---
Addendum entered by Brittany Lou 07/14/24 17:37: Slight perineal swelling noted. Original Note: Pad changed; ice pack off. Education provided.
--- NOTE | 2024-07-14 18:46 | PC.NURSE ---
Addendum entered by Brittany Lou 07/14/24 18:47: Ice pack given. Original Note: Small sized clot noted x1 in toilet following voiding.
--- NOTE | 2024-07-14 19:09 | W.PC.ACHO ---
Registration Status: ADM IN Primary Language: Preferred Language: Mohawk Report given to Bryan ESCAMILLA at 1900. Active Medications Generic Name Dose Route Start Last Admin Trade Name Freq PRN Reason Stop Dose Admin Acetaminophen 650 mg 07/14/24 13:42 Acetaminophen 325 Mg Tablet PO Q6H PRN Mild Pain Al Hydroxide/Mg Hydroxide 2,400 mg 07/14/24 13:42 Magnesium Hydroxide 2,400 Mg/10 Ml Oral.Susp PO Q6H PRN Dyspepsia Benzocaine/Menthol 1 applic 07/14/24 13:42 07/14/24 13:57 Benzocaine/Menthol 85 Gram Jackson Bottle TOPICAL 1 applic Q2H PRN Administration Pain Carboprost Tromethamine 250 mcg 07/14/24 05:15 Carboprost Tromethamine 250 Mcg/Ml 1 Ml Vial IM 07/16/24 05:15 Q15M PRN Bleeding Diphenhydramine HCl 25 mg 07/14/24 06:35 Diphenhydramine Hcl 50 Mg/Ml Vial IV 07/15/24 06:35 Q6H PRN Itching Diphtheria/Pertussis/Tetanus Vacc 0.5 ml 07/16/24 09:00 Adacel Diph,Pertuss(Acell),Tet Vac/Pf 0.5 Ml Adult Syringe IM 07/16/24 09:01 .ONCE ONE Docusate Sodium 100 mg 07/15/24 09:00 Docusate Sodium 100 Mg Capsule PO BID CHRISTOPHER Ephedrine Sulfate 5 mg 07/14/24 06:35 Ephedrine Sulfate 50 Mg/Ml Vial IV 07/15/24 06:35 Q5M PRN Blood Pressure - Low Fentanyl Citrate 100 mcg 07/14/24 06:35 Fentanyl Citrate/Pf 100 Mcg/2 Ml Vial EPIDURAL ONCE PRN epidural Fentanyl Citrate 100 mcg 07/14/24 06:35 Fentanyl Citrate/Pf 100 Mcg/2 Ml Vial EPIDURAL ONCE PRN epidural Tranexamic Acid 1,000 mg/ 110 mls @ 440 mls/hr 07/14/24 05:15 Sodium Chloride IV 07/16/24 05:15 ONCE PRN Uterine Bleeding Sodium Chloride 1,000 mls @ 125 mls/hr 07/14/24 05:30 07/14/24 13:23 Sodium Chloride 0.9% 1,000 Ml IV Infused .Q8H CHRISTOPHER Infusion Oxytocin/Sodium Chloride 10 units in 500 mls @ 6 mls/hr 07/14/24 05:15 07/14/24 13:23 Pitocin 10 Unit/500 Ml-Ns IV Infused TITR CHRISTOPHER Infusion Protocol 2 MILLIUNIT/MIN Ropivacaine/Sodium Chloride 400 mg in 200 mls @ 6 mls/hr 07/14/24 06:45 07/14/24 13:23 Naropin 0.2% 400 Mg/200 Ml Bag EPIDURAL Infused Q24H CHRISTOPHER Infusion Ibuprofen 600 mg 07/14/24 13:42 Ibuprofen 600 Mg Tablet PO Q6H PRN Moderate Pain Lidocaine 5 ml 07/14/24 05:15 Lidocaine Viscous 2% 15 Ml Solution TOPICAL 07/16/24 05:16 ONCE PRN Pain Lidocaine 5 ml 07/14/24 06:35 Lidocaine Hcl 2% Pf 100 Mg/5 Ml Vial INJ 07/15/24 06:35 Q1H PRN epidural Methylergonovine Maleate 0.2 mg 07/14/24 05:15 Methylergonovine Maleate 0.2 Mg/Ml Ampule IM 07/16/24 05:15 ONCE PRN Uterine Contractility/Contract Methylergonovine Maleate 0.2 mg 07/14/24 05:15 Methylergonovine Maleate 0.2 Mg Tablet PO 07/16/24 05:15 Q4H PRN Uterine Contractility/Contract Misoprostol 600 mcg 07/14/24 05:15 Misoprostol 100 Mcg Tablet PO 07/16/24 05:15 ONCE PRN Uterine Bleeding Misoprostol 800 mcg 07/14/24 05:15 Misoprostol 100 Mcg Tablet SL 07/16/24 05:15 ONCE PRN Uterine Bleeding Misoprostol 1,000 mcg 07/14/24 05:15 Misoprostol 100 Mcg Tablet TX 07/16/24 05:15 ONCE PRN Uterine Bleeding Nalbuphine HCl 10 mg 07/14/24 05:15 Nalbuphine Hcl 10 Mg/Ml Ampule IV Q3H PRN Pain Naloxone HCl 0.4 mg 07/14/24 06:35 Naloxone Hcl 0.4 Mg/Ml Vial IV 07/15/24 06:35 ONCE PRN respiratory distress Ondansetron HCl 4 mg 07/14/24 05:15 Ondansetron Pf 4 Mg/2 Ml Vial IV Q6H PRN Nausea And Vomiting Ondansetron HCl 4 mg 07/14/24 05:15 Ondansetron 4 Mg Rapdis Tablet SL Q6H PRN Nausea And Vomiting Oxytocin 10 unit 07/14/24 05:15 Oxytocin 10 Unit/Ml Vial IM 07/16/24 05:15 ONCE PRN bleeding Senna 17.2 mg 07/14/24 20:00 Sennosides 8.6 Mg Tablet PO QHS PRN Constipation Simethicone 80 mg 07/14/24 13:42 Simethicone 80 Mg Tab.Chew PO QID PRN Abdominal Distention Temazepam 15 mg 07/14/24 20:00 Temazepam 15 Mg Capsule PO QHS PRN Sleep Witch Johana/Glycerin 1 pad 07/14/24 13:42 07/14/24 13:57 Glycerin/Witch Johana Pads TOPICAL 1 pad Q2H PRN Administration Pain Diet Category Date Time Status Regular Consistency Diet Diet 07/14/24 13:43 Active Consults Category Date Time Status Consult to Anesthesiology Routine Cons 07/14/24 Ordered IV Insertion/Site Date of IV Line Insertion [20g 07/14/24 right Hand] IV Insertion Time [20g right 05:35 Hand] Neurology Patient orientation (short person,place,time,situation list) Respiratory Oxygen Delivery Method Room Air Bowels Date of Last Bowel Movement 07/14/24 Renal Bladder Pattern Continent Catheter Urinary Catheter Date of 07/14/24 Insertion [Urethral] Urinary Catheter Time of 11:10 Insertion [Urethral] Date Urinary Catheter Removed 07/14/24 [Urethral] Time Urinary Catheter 12:50 Discontinued [Urethral]
[2024-07-14] MEDS: ACETAMINOPHEN 325 MG TABLET 650 MG PO (19:19)
[2024-07-14] MEDS: IBUPROFEN 600 MG TABLET PO (20:13)
[2024-07-15] MEDS: ACETAMINOPHEN 325 MG TABLET 650 MG PO (01:48)
[2024-07-15] MEDS: IBUPROFEN 600 MG TABLET PO ×2 (03:50→10:33)
[2024-07-15 06:50] LABS: Glucometer 76 mg/dL (74-106)
[2024-07-15 08:05] VITALS: BP 109/70; PULSE 85; TEMP 36.7
[2024-07-15] MEDS: DOCUSATE SODIUM 100 MG CAPSULE PO (08:06)
--- NOTE | 2024-07-15 08:35 | PM.OBPN ---
OB - PN: Subj Subjective Patient comments: no complaints [place] status: doing well feeding status: exclusively Exam Constitutional Vital Signs, click to edit/add: Last Vital Signs Temp 98.1 F 07/15/24 08:05 Pulse 85 07/15/24 08:05 Resp 16 07/15/24 08:05 BP 109/70 07/15/24 08:05 O2 Del Method Room Air 07/15/24 08:23 Common normals: no apparent distress General appearance: cooperative, comfortable and well kempt Orientation/consciousness: Yes awake, Yes oriented to person, Yes oriented to place and Yes oriented to time HENMT Common normals: normocephalic Eye Common normals: EOMs intact bilaterally Neck & C-Spine Common normals: full ROM Lymph Lymphatic: no lymphadenopathy noted Respiratory Common normals: normal respiratory effort Effort & inspection: able to speak in complete sentences Auscultation: clear to auscultation bilaterally Cardio Common normals: regular rate and regular rhythm Rate: regular rate Rhythm: regular rhythm GI Common normals: Normal to inspection, nondistended, normoactive bowel sounds present, soft to palpation and non-tender Inspection: normal to inspection Auscultation: normoactive bowel sounds Palpation: soft Common normals: no CVA tenderness Back & Pelvis Thoracic spine/upper back: normal to inspection Lumbar spine/lower back: normal to inspection Extremity Common normals: normal to inspection Neuro Common normals: oriented x3 Sensorium/orientation: awake, alert, oriented to person, oriented to place and oriented to time Psych Common normals: mental status grossly normal, thought process normal and cooperative Attitude: calm Activity/motor behavior: appropriate eye contact Speech: normal speech Thought process: normal thought process Thought content: normal thought content Urinary Catheter Management Urinary Catheter Management Urethral: Cath placed during this visit: yes, but has since been removed by the nurse Insertion date: 07/14/24 Insertion time: 11:10 Removal date: 07/14/24 Removal time: 12:50 OB - PN: A/P Plan - Vaginal Delivery day: 1 Plan: discharge home Time Spent with Patient Time: Total time spent is greater than 50% in coordination of care (as documented) at patient's floor/unit and/or counseling patient: Total time spent with greater than 50% in coordination of care (as documented) at patient's floor/unit and/or counseling patient: less than 15 minutes
[2024-07-15 08:39] LABS: Basophils Percent Auto 0.2 % (0.2-2.0); Eosinophils Percent Auto 0.3 % (0.9-7.0); Hematocrit 31.8 % (36.0-48.0); Hemoglobin 10.7 g/dL (12.0-16.0); Immature Granulocytes Abs Auto 0.21 10^3/uL (0.00-0.03); Immature Granulocytes Pct Auto 1.4 % (0.0-0.5); Lymphocytes Absolute Auto 2.3 10^3/uL (1.2-3.8); Lymphocytes Percent Auto 14.5 % (20.5-60.0); Mean Corpuscular HGB Conc 33.6 g/dL (29.9-35.2); Mean Corpuscular Hemoglobin 30.4 pg (26.7-34.0); Mean Corpuscular Volume 90.3 fL (81.0-99.0); Mean Platelet Volume 10.9 fL (9.5-13.5); Monocytes Absolute Auto 0.9 10^3/uL (0.3-0.8); Monocytes Percent Auto 5.7 % (1.7-12.0); Neutrophils Absolute Auto 12.1 10^3/uL (1.4-6.5); Neutrophils Percent Auto 77.9 % (43.0-75.0); Platelet Count 187 10^3/uL (150-450); Red Blood Count 3.52 10^6/uL (4.20-5.40); Red Cell Distribution Width 12.7 % (11.0-15.0); White Blood Count 15.5 10^3/uL (4.0-11.0)
== END 2024-07-15 16:30 | disposition home or self-care (01) | DRG 807 ==
PROVIDERS: Admitting Provider Obstetrics & Gynecology; Visit Provider Obstetrics & Gynecology
DX: O24.424 Gestational diabetes mellitus in childbirth, insulin controlled (principal); Z37.0 Single live birth; O70.0 First degree perineal laceration during delivery; O71.82 Other specified trauma to perineum and vulva; Z3A.38 38 weeks gestation of pregnancy
CPT/HCPCS: 36415; 59050; 59410; 80307; 82948; 85025; 85027; 86850; 86900; 86901; J1885; J2795

== ENCOUNTER 2024-07-18 08:34 | Outpatient (OUT) | payer OTHER, SELFPAY ==
--- OUTSIDE RECORDS SUMMARY | 2024-07-18 08:45 | XMS_ITS | CCD ---
Author Organization [facility] Care Team Providers Care Nanosystems Engineer Name Role Phone Shantelle Dean Primary Care Provider [phone] JIMMY MEEHAN Referring Unavailable SHANTELLE DEAN Primary Care Unavailable SHANTELLE DEAN Referring Unavailable SHANTELLE DEAN Primary Care Unavailable MISHaroon, DR BELLAMY Primary Care Unavailable DESHAUN, DR WEATHERS Attending Unavailable DESHAUN, DR WEATHERS Consulting Unavailable DESHAUN, DR WEATHERS Admitting Unavailable JASIEL MEADE R Referring Unavailable Shantelle Dean MD Primary Care Provider Suri Johnson Unavailable JASIEL MEADE Attending Unavailable DESHAUN, JASIEL Attending Unavailable PARKER SURI Attending Unavailable DESHAUN, JASIEL Attending Unavailable PARKER, SURI Attending Unavailable DESHAUN, JASIEL Attending Unavailable PARKER, SURI Attending Unavailable PARKER, SURI Attending Unavailable DESHAUN, JASIEL Attending Unavailable DESHAUN, JASIEL Attending Unavailable Medications Current Medications Medication Drug Class(es) Dates Sig (Normalized) Sig (Original) citalopram 20 mg oral tablet (3 sources) Serotonin Reuptake Inhibitor Start: 03-13-2024 End: 03-13-2025 take 1 tablet by mouth once daily citalopram (CeleXA) 20 MG tablet Indications: Major depressive disorder with current active episode, unspecified depression episode severity, unspecified whether recurrent (CMS/HCC) Take 1 tablet (20 mg) by mouth Daily 30 tablet 11 03/13/2024 04/17/2024 Discontinued (Other) etonogestrel 68 mg drug implant (2 sources) Progestin etonogestrel (NEXPLANON) 68 MG implant 68 mg by Subdermal route once 0 Active insulin glargine 100 unt/ml injectable solution (11 sources) Insulin Analog Start: 05-26-2024 End: 06-25-2024 inject 10 [IU] by subcutaneous injection in the evening insulin glargine (Lantus) 100 UNIT/ML injection Indications: Hyperglycemia , GESTATIONAL DIABETES Inject 10 Units under the skin in the evening 3 mL 05/26/2024 Active magnesium oxide 400 mg oral tablet (20 sources) take 1 tablet by mouth in [...] Episodic Immunizations and screening for infectious disease (3 sources) Encounter for screening for human papillomavirus (HPV); Translations: [Exposure to sexually transmissible disorder] Onset: 08-23-2022 07-10-2024 Episodic Other complications of (2 sources) size does not accord with dates; Translations: [Uterine size-date discrepancy, unspecified trimester] 05-08-2024 Episodic Other female genital disorders (2 sources) Vaginal discharge; Translations: [Other specified noninflammatory disorders of vagina] 07-10-2024 Episodic Other and delivery including normal (14 sources) Third trimester ; Translations: [Encounter for [...] [36 weeks gestation of ] 07-03-2024 Episodic Residual codes; unclassified (2 sources) Gestation period, 37 weeks; Translations: [37 weeks gestation of ] 07-10-2024 Episodic Past or Other Problems Problem Classification Problem Date Documented Date Episodic/Chronic Abdominal pain (20 sources) Vaginal pain; Translations: [Pelvic and perineal pain] Onset: 08-20-2023 08-20-2023 Episodic Contraceptive and procreative management (3 sources) Patient encounter status; Translations: [Encounter for other contraceptive management] Onset: 07-11-2017 Resolved: 11-25-2019 11-25-2019 Episodic Other female genital disorders (2 sources) Pain in female genitalia on intercourse; Translations: [Unspecified dyspareunia] Onset: 05-24-2018 Resolved: 03-09-2020 03-09-2020 Chronic Residual codes; unclassified (2 sources) Gestation period, 25 weeks; Translations: [25 weeks gestation of ] 04-17-2024 Episodic Unclassified (1 source) Patient encounter status; Translations: [Encounter for other contraceptive management] Onset: 07-11-2017 Resolved: 11-25-2019 11-25-2019 Results Test Name Value Interpretation Reference Range Facility ALL CBC WITH AUTO DIFFon BASOPHILS ABSOLUTE AUTO 0 [facility] Basophils/100 WBC (Bld) 0.2 % 0.2 - 2.0 % [facility] Eosinophils/100 WBC (Bld) 0.3 % Low 0.9 - 7.0 % [facility] Erythrocyte distribution width (RBC) [Ratio] 12.7 % 11.0 - 15.0 % [facility] Hematocrit (Bld) [Volume fraction] 31.8 % Low 36.0 - 48.0 % [facility] Hemoglobin (Bld) [Mass/Vol] 10.7 g/dL Low 12.0 - 16.0 g/dL [facility] IMMATURE GRANULOCYTES ABS AUTO 0.21 High [facility] Immature granulocytes/100 WBC (Bld) 1.4 % High 0.0 - 0.5 % [facility] Interpretation and review of laboratory results Abnormal [facility] LYMPHOCYTES ABSOLUTE AUTO 2.3 [facility] Lymphocytes/100 WBC (Bld) 14.5 % Low 20.5 - 60.0 % [facility] MCH (RBC) [Entitic mass] 30.4 pg 26.7 - 34.0 pg [facility] MCHC (RBC) [Mass/Vol] 33.6 g/dL 29.9 - 35.2 g/dL [facility] MCV (RBC) [Entitic vol] 90.3 fL 81.0 - 99.0 fL [facility] MONOCYTES ABSOLUTE AUTO 0.9 High [facility] Monocytes/100 WBC (Bld) 5.7 % 1.7 - 12.0 % [facility] NEUTROPHILS ABSOLUTE AUTO 12.1 High [facility] Healthcare Neutrophils/100 WBC (Bld) 77.9 % High 43.0 - 75.0 % [facility] Healthcare Platelet mean volume (Bld) [Entitic vol] 10.9 fL 9.5 - 13.5 fL [facility] Healthc are TBH EO # 0 [facility] PLT 187 [facility] RBC 3.52 Low [facility] WBC 15.5 High [facility] RECURRENT VAGINITIS (HTRX)on 07-11-2024 ATOPOBIUM VAGINAE 20.066 Abnormal [facility] ATOPOBIUM VAGINAE Detected Abnormal [facility] BVAB 2,3 (BACTERIAL VAGINOSIS ASSOCIATED BACTERIA 2, 3); MOBILUNCUS SPP 0 [facility] BVAB 2,3 (BACTERIAL VAGINOSIS ASSOCIATED BACTERIA 2, 3); MOBILUNCUS SPP Not detected [facility] Healthcare AGATA ALBICANS, PARAPSILOSIS, TROPICALIS 0 [facility] AGATA ALBICANS, PARAPSILOSIS, TROPICALIS Not detected [facility]ATA GLABRATA 0 [facility] GLABRATA Not detected [facility] AGATA KRUSEI 0 [facility]ATA KRUSEI Not [facility] CHLAMYDIA TRACHOMATIS 0 [facility] CHLAMYDIA TRACHOMATIS Not detected [facility] GARDNERELLA VAGINALIS 0 [facility] GARDNERELLA VAGINALIS Not detected [facility] Interpretation and review of laboratory results Abnormal [facility] MEGASPHAERA (TYPES 1, 2) 0 [facility] MEGASPHAERA (TYPES 1, 2) Not detected [facility] MYCOPLASMA GENITALIUM 0 [facility] MYCOPLASMA GENITALIUM Not detected [facility] NEISSERIA GONORRHOEAE 0 [facility] NEISSERIA GONORRHOEAE Not detected [facility] TRICHOMONAS VAGINALIS 0 [facility] TRICHOMONAS VAGINALIS Not detected [facility] Urinalysis macro (dipstick) panel (U)on 07-03-2024 Bilirubin, UA Negative Negative - 4(70) +++ mg/dL [facility] Blood, UA Negative Negative - 50 Bib/mcL [facility] Clarity, UA Clear [facility] Color, UA Yellow [facility] Glucose, UA Negative Negative - 1999(110) ++++ mg/dL [facility] Interpretation and review of laboratory results Abnormal [facility] Ketones, UA Negative Negative - 160(16) ++++ mg/dL [facility] Leukocytes, UA Positive Negative - 500+++ Alvaro/mcL [facility] Comment on above: small Nitrite, UA Negative Negative - Positive [facility] pH, UA 7 5 - 9 [facility] Protein, UA Negative Negative - 1999(20) ++++ mg/dL [facility] Spec Grav, UA 1.02 1 - 1.03 [facility] Urobilinogen, UA 0.2 0.2 - 12 mg/dL [facility] Urinalysis macro (dipstick) panel (U)on 06-05-2024 Bilirubin, UA Negative Negative - 4(70) +++ mg/dL [facility] Blood, UA Negative Negative - 50 Bib/mcL [facility] Clarity, UA Clear [facility] Color, UA Yellow [facility] Glucose, UA Negative Negative - 1999(110) ++++ mg/dL [facility] Interpretation and review of laboratory results Abnormal [facility] Ketones, UA Negative Negative - 160(16) ++++ mg/dL [facility] Leukocytes, UA Trace Negative - 500+++ Alvaro/mcL [facility] Nitrite, UA Negative Negative - Positive [facility] pH, UA 7 5 - 9 [facility] Protein, UA Negative Negative - 1999(20) ++++ mg/dL [facility] Spec Grav, UA 1.015 1 - 1.03 [facility] Urobilinogen, UA 0.2 0.2 - 12 mg/dL [facility] Urinalysis macro (dipstick) panel (U)on 05-22-2024 Bilirubin, UA Negative Negative - 4(70) +++ mg/dL [facility] Blood, UA Negative Negative - 50 Bib/mcL [facility] Clarity, UA Clear [facility] Color, UA Yellow [facility] Glucose, UA Negative Negative - 1999(110) ++++ mg/dL [facility] Interpretation and review of laboratory results Abnormal [facility] Ketones, UA Negative Negative - 160(16) ++++ mg/dL [facility] Leukocytes, UA Positive Negative - 500+++ Alvaro/mcL [facility] Comment on above: small Nitrite, UA Negative Negative - Positive [facility] pH, UA 7 5 - 9 [facility] Protein, UA Negative Negative - 1999(20) ++++ mg/dL [facility] Spec Grav, UA 1.015 1 - 1.03 [facility] Urobilinogen, UA 0.2 0.2 - 12 mg/dL [facility] Urinalysis macro (dipstick) panel (U)on 05-08-2024 Bilirubin, UA Negative Negative - 4(70) +++ mg/dL [facility] Blood, UA Negative Negative - 50 Bib/mcL [facility] Clarity, UA Clear [facility] re Color, UA Yellow [facility] Glucose, UA Negative Negative - 1999(110) ++++ mg/dL [facility] Interpretation and review of laboratory results Abnormal [facility] Ketones, UA Negative Negative - 160(16) ++++ mg/dL [facility] Leukocytes, UA Positive Negative - 500+++ Alvaro/mcL [facility] Comment on above: small Nitrite, UA Negative Negative - Positive [facility] pH, UA 7.0 5 - 9 [facility] e Protein, UA Negative Negative - 1999(20) ++++ mg/dL [facility] Spec Grav, UA 1.020 1 - 1.03 [facility] Urobilinogen, UA 0.2 0.2 - 12 mg/dL [facility] GLUCOSE TOLERANCE 3 HOURon 1 GLUCOSE TOLERANCE 3 HOUR High mg/dL [facility] Comment on above: GLU FAST 97H (<95) C ol: 05/01/24 0722 GLU 1HR 173 (<180) Col: 05/01/24 0823 GLU 2HR 162H (<155) Col: 05/01/24 0924 GLU 3HR 114 (<140) Col: 05/01/24 1022 Interpretation and review of laboratory results Abnormal [facility] ALL CBC WITH AUTO DIFFon BASOPHILS ABSOLUTE AUTO 0.0 [facility] Basophils/100 WBC (Bld) 0.2 % 0.2 - 2.0 % [facility] Eosinophils/100 WBC (Bld) 0.7 % Low 0.9 - 7.0 % [facility] Erythrocyte distribution width (RBC) [Ratio] 12.6 % 11.0 - 15.0 % [facility] Hematocrit (Bld) [Volume fraction] 38.2 % 36.0 - 48.0 % [facility] e Hemoglobin (Bld) [Mass/Vol] 13.1 g/dL 12.0 - 16.0 g/dL [facility] IMMATURE GRANULOCYTES ABS AUTO 0.12 High [facility] Immature granulocytes/100 WBC (Bld) 1.1 % High 0.0 - 0.5 % [facility] Interpretation and review of laboratory results Abnormal [facility] LYMPHOCYTES ABSOLUTE AUTO 2.1 [facility] Lymphocytes/100 WBC (Bld) 19.6 % Low 20.5 - 60.0 % [facility] MCH (RBC) [Entitic mass] 31.8 pg 26.7 - 34.0 pg [facility] MCHC (RBC) [Mass/Vol] 34.3 g/dL 29.9 - 35.2 g/dL [facility] MCV (RBC) [Entitic vol] 92.7 fL 81.0 - 99.0 fL [facility] MONOCYTES ABSOLUTE AUTO 0.7 [facility] Monocytes/100 WBC (Bld) 6.3 % 1.7 - 12.0 % [facility] NEUTROPHILS ABSOLUTE AUTO 7.9 High [facility] Neutrophils/100 WBC (Bld) 72.1 % 43.0 - 75.0 % [facility] Platelet mean volume (Bld) [Entitic vol] 10.2 fL 9.5 - 13.5 fL [facility] Healthc are TBH EO # 0.1 [facility] TBH PLT 254 [facility] TB RBC 4.12 Low [facility] TBH WBC 10.9 [facility] e Urinalysis macro (dipstick) panel (U)on 04-17-2024 Bilirubin, UA Negative Negative - 4(70) +++ mg/dL [facility] Blood, UA Negative Negative - 50 Bib/mcL [facility] Clarity, UA Clear [facility] re Color, UA Yellow [facility] e Glucose, UA Negative Negative - 1999(110) ++++ mg/dL [facility] Interpretation and review of laboratory results Abnormal [facility] Ketones, UA Negative Negative - 160(16) ++++ mg/dL [facility] Leukocytes, UA Trace Negative - 500+++ Alvaro/mcL [facility] Nitrite, UA Negative Negative - Positive [facility] pH, UA 7.0 5 - 9 [facility] e Protein, UA Negative Negative - 1999(20) ++++ mg/dL [facility] Spec Grav, UA 1.025 1 - 1.03 [facility] Urobilinogen, UA 1.0 0.2 - 12 mg/dL [facility] Cytology Cervical or vaginal smear or scraping studyOrdered By: Norma Vega on 08-22-2023 [facility] PAP ACOG PANEL 2: 21 to 29on 08-25-2022 . . Normal [facility] Comment on above: Performed By: #### [id number] #### [facility] [address] [address] [address] Matias Shukla Age Gdln ACOG Testing 21- Normal [facility] Comment on above: Performed By: #### [id number] #### [facility] [address] [address] [address] Matias Shukla DIAGNOSIS: Comment [facility] Comment on above: Result Comment: NEGA TIVE FOR INTRAEPITHELIAL LESION OR MALIGNANCY. Performed By: #### [id number] #### [facility] [address] [address] [address] Matias Shukla Methodology: Comment [facility] Comment on above: Result Comment: This liquid based ThinPrep(R) pap test was screened with the use of an image guided system. Performed By: #### [id number] #### [facility] [address] [place] [address] Dr. Matias Shukla Note: Comment Normal [facility] Comment on above: Result Comment: The Pap smear is a screening test designed to aid in the detection of premalignant and malignant conditions of the uterine cervix. It is not a diagnostic procedure and should not be used as the sole means of detecting cervical cancer. Both false-positive and false-negative reports do occur. . Performed By: #### [id number] #### [facility] [address] [place] [address] Dr. Matias Shukla Performed by: Comment Normal [facility] Comment on above: Result Comment: Monika Prieto, International Sales Representative (ASCP) Performed By: #### [id number] #### [facility] [address] [place] [address] Dr. Matias Shukla Reflex Criteria: Comment Normal [facility] Comment on above: Result Comment: The HPV DNA reflex criteria were not met with this specimen result therefore, no HPV testing was performed. . Performed By: #### [id number] #### [facility] [address] [place] [address] Dr. Matias Shukla Specimen adequacy: Comment Normal [facility] Comment on above: Result Comment: Sati sfactory for evaluation. Endocervical and/or squamous metaplastic cells (endocervical component) are present. Performed By: #### 4 [id number] #### [facility] [address] [place] [address] Dr. Matias Shukla MUMPS IGG BLDon 02-07-2022 MUMPS IGG 1.14 Normal [facility] Comment on above: Result Comment: RAN IN TRIPLICATE NORMAL RANGES: < OR = 0.9O NEGATIVE ; NO DETECTABLE IgG ANTIBODY TO MUMPS 0.91 - 1.09 EQUIVOCAL; REPEAT TESTING SUGGESTED > OR = 1.10 POSITIVE ; INDICATES PRESENCE OF DETECTABLE IgG ANTIBODY TO MUMPS Performed By: #### 1 0055, [id number], [id number], 17264 #### [facility] [address] RUBELLAon 02-07-2022 RUBELLA 1.73 Normal [facility] Comment on above: Result Comment: NORM AL RANGES: < OR = 0.9O NEGATIVE ; NO DETECTABLE IgG ANTIBODY TO RUBELLA 0.91 - 1.09 EQUIVOCAL; REPEAT TESTING SUGGESTED > OR = 1.10 POSITIVE ; INDICATES PRESENCE OF DETECTABLE IgG ANTIBODY TO RUBELLA VIRUS Performed By: #### 1 0055, 86441, 19421, 28143 #### [facility] [address] RUBEOLA MEASLES IGGon 2021 RUBEO IGG 4.62 Normal [facility] Comment on above: Result Comment: NORM AL RANGES: < OR = 0.9O NEGATIVE ; NO DETECTABLE IgG ANTIBODY TO RUBEOLA 0.91 - 1.09 EQUIVOCAL; REPEAT TESTING SUGGESTED > OR = 1.10 POSITIVE ; INDICATES PRESENCE OF DETECTABLE IgG ANTIBODY TO RUBEOLA Performed By: #### 1 0055, 60375, 95753, 33711 #### [facility] [address] TB QUANTIFERON PLUSon 2021 MITOGEN MINUS NIL 8.15 IU/mL Normal [facility] Comment on above: Performed By: #### 3 1592 #### [facility] [address] NIL 0.03 IU/mL Normal [facility] Comment on above: Performed By: #### 3 1592 #### [facility] [address] TB QUANTIFERON Negative Normal NEGATIVE [facility] Comment on above: Result Comment: Eric tiferon TB Gold Interpretation (IU/mL): NEGATIVE: M. tuberculosis infection not likely. Nil: <=8.0 TB1 Antigen minus Nil (PK0ZI-VCV): <0.35 OR >=0.35; and <25% of Nil value. TB2 Antigen minus Nil (HF5MG-MEA): <0.35 OR >=0.35; and <25% of Nil [...] (https://www.cdc.gov/tb/publications/guidlines/default.htm Performed By: #### 3 1592 #### [facility] [address] TB1 AG 0.03 IU/mL Normal [facility] Comment on above: Performed By: #### 3 1592 #### [facility] [address] TB1 AG MINUS NIL 0.00 IU/mL Normal [facility] Comment on above: Performed By: #### 3 1592 #### [facility] [address] TB2 AG 0.04 IU/mL Normal [facility] Comment on above: Performed By: #### 3 1592 #### [facility] [address] TB2 AG MINUS NIL 0.01 IU/mL Normal [facility] Comment on above: Performed By: #### 3 1592 #### [facility] [address] VARICELLA ZOSTER IGGon 02-07 VARICELLA IGG 2.60 Normal [facility] Comment on above: Result Comment: NORM AL RANGES: < OR = 0.9O NEGATIVE ; NO DETECTABLE IgG ANTIBODY TO VARICELLA-ZOSTER VIRUS 0.91 - 1.09 EQUIVOCAL; REPEAT TESTING SUGGESTED > OR = 1.10 POSITIVE ; INDICATES PRESENCE OF DETECTABLE IgG ANTIBODY TO VARICELLA-ZOSTER VIRUS Performed By: #### 1 0055, 86046, 14078, 19743 #### [facility] [address] [place] [address], [facility] HPV DNA High Riskon 08-19-19 HPV Interp [facility] Comment on [...] purposes. Performed By: #### H PVH #### [address] [address] Mouse Breeder: Rickey Watson MD HPV Type 16 Not detected [facility] Comment on above: Performed By: #### H PVH #### [address] [address] Mouse Breeder: Rickey Watson MD HPV Type 18 Not detected [facility] Comment on above: Performed By: #### H PVH #### [address] [address] Mouse Breeder: Rickey Watson MD Other High Risk HPV Not detected [facility] Comment on above: Performed By: #### H PVH #### [facility] [address] [place] [address] Mouse Breeder: Riceky Watson MD HPV DNA High Riskon 08-18-19 22 Source .GENITAL - NOT SPECIFIED [facility] Comment on above: Performed By: #### H PVH #### [facility] [address] [place] [address] Mouse Breeder: Rickey Watson MD HPV Sample .THIN PREP Normal [facility] Comment on above: Performed By: #### H PV #### [address] [id number] Mouse Breeder: Rickey Watson MD Chlamydia/GC DNA, TPon 08-10 Chlamydia Probe, TP Negative Normal NEG [facility] Comment on above: Result Comment: CHLA [...] target. Performed By: #### C YTCGP #### [address] [id number] Mouse Breeder: Rickey Watson MD Gonorrhea Probe, TP Negative Normal NEG [facility] Comment on above: Result Comment: NEIS [...] target. Performed By: #### C YTCGP #### [address] [address] Mouse Breeder: Rickey Watson MD Cytologyon 08-08-2021 Cytology (NOTE) INTERPRETATION Cervical material, (ThinPrep vial, Imaging-assisted review): Specimen Adequacy: Satisfactory for evaluation. - Endocervical/transfor mation zone component present. - Scant cellularity. Descriptive Diagnosis: Atypical squamous cells of undetermined significance (ASC-US). International Sales Representative: AMANDA Michaels M.D. Electronically Signed Out rdd/08/18/2021 Amendments Originally Reported As: Procedure/Addendum Source: Clinical History LMP: Patient Name: Arvind Rec: Path Number: Fax: Normal [facility] Comment on above: Performed By: #### P PPVP #### [facility] [address] [place], [place] [id number] Mouse Breeder: Rickey Watson MD QuantiFERON TBon 12-24-2020 Quanti Binu minus NIL 8.10 IU/mL Normal [facility] Comment on above: Performed By: #### R UBI, LUIZ, MARITZA, VZI #### [facility] [address] [place] [address] Mouse Breeder: Rickey Watson MD #### AQF #### [facility] [address] [place] [address] Mouse Breeder: Mark Grossman MD Quanti TB Gold Plus Negative Normal Negative [facility] Comment on above: Result Comment: (NOT [...] Mycobacterium tuberculosis Infection --- [place], 2010 (http://www.cdc.gov/mmwr/preview/mmwrhtml/ng9906d4.htm), for more information concerning test performance in low-prevalence populations and use in occupational screening. Performed By: #### R UBI, LUIZ, MARITZA, VZI #### [address] [address] Mouse Breeder: Rickey Watson MD #### AQF #### [facility] [address] [place] [address] Mouse Breeder: Mark Grossman MD Quanti TB1 minus NIL 0.00 IU/mL Normal 0.00-0.34 [facility] Comment on above: Performed By: #### R UBI, LUIZ, MARITZA, VZI #### [address] [id number] Mouse Breeder: Rickey Watson MD #### AQF #### [address] [address] Mouse Breeder: Mark Grossman MD Quanti TB2 minus NIL 0.01 IU/mL Normal 0.00-0.34 [facility] Comment on above: Performed By: #### R UBI, LUIZ, MARITZA, VZI #### [address] [address] Mouse Breeder: Rickey Watson MD #### AQF #### [facility] [address] [place] [address] Mouse Breeder: Mark Grossman MD QuantiFERON NIL 0.01 IU/mL Normal [facility] Comment on above: Result Comment: (NOT E) Performed By: [facility] [address] [place] [address] Service Officer: Carolyn Wei MD Performed By: #### R UBI, LUIZ, MARITZA, VZI #### [address] [address] Mouse Breeder: Rickey Watson MD #### AQF #### [facility] [address] [place] [address] Mouse Breeder: Mark Grossman MD Measles (Rubeola) Imon 12-22 Measles (Rubeola) Im 3.68 Normal >1.09 [facility] Comment on above: Result Comment: Interpretation: IMMUNE Reference Range: <0.91 Not Immune 0.91-1.09 Equivocal >1.09 Immune Performed By: #### R UBI, LUIZ, MARITZA, VZI #### [address] [address] Mouse Breeder: Rickey Watson MD #### AQF #### [facility] [address] [place] [address] Mouse Breeder: Mark Grossman MD Mumps,Immun,Abon 12-22-2020 Mumps,Immun,Ab 1.16 Normal >1.09 [facility] Comment on above: Result Comment: Interpretation: IMMUNE Reference Range: <0.91 Not Immune 0.91-1.09 Equivocal >1.09 Immune Performed By: #### R UBI, LUIZ, MARITZA, VZI #### [place] [address] Mouse Breeder: Rickey Watson MD #### AQF #### [address] [id number] Mouse Breeder: Mark Grossman MD VZ Immunityon 12-22-2020 VZ Immunity 2.24 Normal >1.09 [facility] Comment on above: Result Comment: Interpretation: IMMUNE Reference Range: <0.91 Not Immune 0.91-1.09 Equivocal >1.09 Immune Performed By: #### R UBI, LUIZ, MARITZA, VZI #### [place] [address] Mouse Breeder: Rickey Watson MD #### AQF #### [facility] [address] [place] [id number] Mouse Breeder: Mark Grossman MD Rubella Ab, IgGon 12-21-2020 Rubella Ab, IgG 16.2 IU/mL Normal [facility] Comment on above: Result Comment: REFERENCE RANGE: <5.0 NON-REACTIVE (non-immune) 5.0 TO 9.9 EQUIVOCAL >=10.0 REACTIVE (immune) Performed By: #### R UBI, LUIZ, MARITZA, VZI #### [facility] [address] [place] [address] Mouse Breeder: Rickey Watson MD #### AQF #### [facility] [address] [place] [address] Mouse Breeder: Mark Grossman MD Rubella antibody, IgGOrdered By: Jimmy Meehan on 12-21-2020 Rubella virus IgG Ql (S) 16.2 IU/mL [facility] Phone: Comment on above: REFERENCE RANGE: <5.0 NON-REACTIVE (non-immune) 5.0 TO 9.9 EQUIVOCAL >=10.0 REACTIVE (immune) [facility] Phone: Lab - Toxicology Resultson 0 03-11-2020 Lab - Toxicology Results [id number] Normal [facility] QuantiFERON TB Gold (In Tube ) LCon 03-08-2020 QuantiFERON Criteria LC Comment [facility] Comment on above: Result Comment: The QuantiFERON-TB Gold Plus result is determined by subtracting the Nil value from either TB antigen (Ag) tube. The mitogen tube serves as a control for the test. Performed By: #### 4 [id number], [id number] #### [facility] (DEFAULT) [address] [place] [address] QuantiFERON M. tuberculosis1 Ag Value LC 0.09 IU/mL [facility] Comment on above: Performed By: #### 4 [id number] #### [facility] (DEFAULT) [address] [place] [address] QuantiFERON M. tuberculosis2 Ag Value LC 0.08 IU/mL [facility] Comment on above: Performed By: #### 4 [id number], [id number] #### [facility] (DEFAULT) [address] [place] [address] QuantiFERON Mitogen Value LC >10.00 [facility] Comment on above: Result Comment: Perf ormed At: [place] [id number] [place], [place] [id number] Kat Arevalo PhD Ph:[phone] Performed By: #### 4 [id number], [id number] #### [facility] (DEFAULT) [address] [place] [address] QuantiFERON Nil Value LC 0.01 IU/mL [facility] Comment on above: Performed By: #### 4 [id number], [id number] #### [facility] (DEFAULT) [address] [place] [address] QuantiFERON-TB Gold Plus LCo n 03-08-2020 QuantiFERON-TB Gold Plus LC Negative Negative [facility] Comment on above: Result Comment: Perf ormed At: [place] [id number] [place], [place] [id number] Kat Arevalo PhD Ph:[phone] Performed By: #### 4 [id number], [id number] #### [facility] (DEFAULT) [address] [place] [address] QuantiFERON Incubation LC Incubation performed. [facility] Comment on above: Result Comment: Perf ormed At: [place] [id number] [place], [place] [id number] Kat Arevalo PhD Ph:[phone] Performed By: #### 4 [id number], [id number] #### [facility] (DEFAULT) [address] [place] [address] HBSab Qnt LCon 03-05-2020 Hep B Surf Ab Quant LC 145.6 mIU/mL Immunity>9.9 [facility] Comment on above: Result Comment: Stat us of Immunity Anti-HBs Level Inconsistent with Immunity 0.0 - 9.9 Consistent with Immunity >9.9 Performed At: [facility] [address] [place], [place] [id number] Kat Arevalo PhD Ph:[phone] Performed By: #### 1 [id number], [id number] #### [facility] (DEFAULT) [address] [place] [address] Measles/Mumps/Rubella Immuni ty LCon 03-05-2020 Mumps Abs, IgG LC 69.5 AU/mL Immune >10.9 [facility] Comment on above: Result Comment: Nega tive <9.0 Equivocal 9.0 - 10.9 Positive >10.9 A positive result generally indicates past exposure to Mumps virus or previous vaccination. Performed At: [facility] [address] [place], [place] [id number] Kat Arevalo PhD Ph:[phone] Performed By: #### 1 [id number], [id number] #### [facility] (DEFAULT) [address] [place] [address] Rubella Antibodies, IgG LC 1.75 index Immune >0.99 [facility] Comment on above: Result Comment: Non- immune <0.90 Equivocal 0.90 - 0.99 Immune >0.99 Performed By: #### 1 [id number], [id number] #### [facility] (DEFAULT) [address] [place] [address] Rubeola Ab, IgG, EIA LC >300.0 Immune >16.4 [facility] Comment on above: Result Comment: Nega tive <13.5 Equivocal 13.5 - 16.4 Positive >16.4 Presence of antibodies to Rubeola is presumptive evidence of immunity except when acute infection is suspected. Performed By: #### 1 [id number], [id number] #### [facility] (DEFAULT) [address] [place] [address] Nicotine Metabolite, Urine L Con 03-05-2020 Cotinine LC Negative Zseajo=[id number] [facility] Comment on above: Result Comment: [facility]med [facility]: [facility] [place] [address] [place], [place] [id number] Jose Schwartz PhD Ph:[phone] Performed By: #### 1 [id number] #### [facility] ([facility]) [address] [id number] Vital Signs Date Time Vital Sign Value Performing Clinician Susy ramon 07-10-2024 10:58-0500 Body mass index (BMI) [Ratio] 40.93 kg/m2 Jasiel Deshaun DO Work Phone: [facility] 07-10-2024 10:58-0500 Body weight 101.52 kg Jasiel Deshaun DO Work Phone: [facility] 07-10-2024 10:58-0500 Diastolic blood pressure 78 mm[Hg] Jasiel Deshaun DO Work Phone: [facility] 07-10-2024 10:58-0500 Systolic blood pressure 114 mm[Hg] Jasiel Deshaun DO Work Phone: [facility] 07-03-2024 11:01-0500 Body mass index (BMI) [Ratio] 41.12 kg/m2 Jasiel Deshaun DO Work Phone: [facility] 07-03-2024 11:01-0500 Body weight 101.97 kg Jasiel Deshaun DO Work Phone: [facility] 07-03-2024 11:01-0500 Diastolic blood pressure 70 mm[Hg] Jasiel Deshaun DO Work Phone: [facility] 07-03-2024 11:01-0500 Systolic blood pressure 120 mm[Hg] Jasiel Deshaun DO Work Phone: [facility] 06-19-2024 10:40-0500 Body mass index (BMI) [Ratio] 40.02 kg/m2 Suri LORENZO Work Phone: [facility] 06-19-2024 10:40-0500 Body weight 99.25 kg Suri LORENZO Work Phone: [facility] 06-19-2024 10:40-0500 Diastolic blood pressure 74 mm[Hg] Suri LORENZO Work Phone: [facility] 06-19-2024 10:40-0500 Systolic blood pressure 110 mm[Hg] Suri Parker PA Work Phone: [facility] 06-05-2024 11:46-0500 Body mass index (BMI) [Ratio] 39.69 kg/m2 Suri Parker PA Work Phone: [facility] 06-05-2024 11:46-0500 Body weight 98.43 kg Suri Parker PA Work Phone: [facility] 06-05-2024 11:46-0500 Diastolic blood pressure 80 mm[Hg] Suri Neal PA Work Phone: [facility] 06-05-2024 11:46-0500 Systolic blood pressure 114 mm[Hg] Suri Neal PA Work Phone: [facility] 05-22-2024 09:57-0400 Body mass index (BMI) [Ratio] 39.1 kg/m2 Jasiel Deshaun DO Work Phone: [facility] 05-22-2024 09:57-0400 Body weight 96.98 kg Jasiel Deshaun DO Work Phone: [facility] 05-22-2024 09:57-0400 Diastolic blood pressure 72 mm[Hg] Jasiel Deshaun DO Work Phone: [facility] 05-22-2024 09:57-0400 Systolic blood pressure 110 mm[Hg] Jasiel Deshaun DO Work Phone: [facility] 05-08-2024 09:31-0400 Body mass index (BMI) [Ratio] 38.59 kg/m2 Suri Neal PA Work Phone: [facility] 05-08-2024 09:31-0400 Body weight 95.71 kg Suri Parker PA Work Phone: [facility] 05-08-2024 09:31-0400 Diastolic blood pressure 78 mm[Hg] Suri Parker PA Work Phone: [facility] 05-08-2024 09:31-0400 Systolic blood pressure 120 mm[Hg] Suri Neal PA Work Phone: [facility] 04-17-2024 09:04-0400 Body mass index (BMI) [Ratio] 38.04 kg/m2 Jasiel Deshaun DO Work Phone: [facility] 04-17-2024 09:04-0400 Body weight 94.35 kg Jasiel Deshaun DO Work Phone: [facility] 04-17-2024 09:04-0400 Diastolic blood pressure 68 mm[Hg] Jasiel Deshaun DO Work Phone: [facility] 04-17-2024 09:04-0400 Systolic blood pressure 112 mm[Hg] Jasiel Deshaun DO Work Phone: [facility] Encounters Encounter Date Encounter Type Care Provider Facility Start: 07-15-2024 End: 07-15-2024 Clinisync Result Encounter Jasiel Deshaun DO Work Phone: [facility] Unsolicited Start: 07-15-2024 End: 07-15-2024 Clinisync Result Encounter Jasiel Deshaun DO Work Phone: [facility] Unsolicited Start: 07-10-2024 End: 07-11-2024 External Result Encounter Jasiel Deshaun DO Work Phone: [facility] Unsolicited Start: 07-10-2024 End: 07-11-2024 External Result Encounter Jasiel Deshaun DO Work Phone: [facility] Unsolicited Start: 07-10-2024 End: 07-10-2024 flow sheet Jasiel Deshaun DO Work Phone: [facility] Comment on above: 37 weeks gestation o f ; Third trimester ; Vaginal discharge; STD exposure Start: 07-10-2024 End: 07-10-2024 ambulatory JASIEL DESHAUN Not Available Start: 07-03-2024 End: 07-03-2024 flow sheet Jasiel Deshaun DO Work Phone: [facility] Comment on above: 36 weeks gestation o f ; Third trimester Start: 07-03-2024 End: 07-03-2024 ambulatory JASIEL DESHAUN Not Available Start: 06-19-2024 End: 06-19-2024 Bamboo flowsheet Suri Canales PA Work Phone: [facility] Start: 06-19-2024 End: 06-19-2024 Bamboo flowsheet Suri Canales PA Work Phone: [facility] Start: 06-19-2024 End: 06-19-2024 flow sheet Suri Canales PA Work Phone: [facility] Comment on above: Third trimester preg jeffrey; 34 weeks gestation of Start: 06-19-2024 End: 06-19-2024 ambulatory SURI CANALES Not Available Start: 06-05-2024 End: 06-05-2024 Bamboo flowsheet Suri LORENZO Work Phone: [facility] Start: 06-05-2024 End: 06-05-2024 Bamboo flowsheet Suri Canales PA Work Phone: [facility] Start: 06-05-2024 End: 06-05-2024 flow sheet Suri Canales PA Work Phone: [facility] Comment on [...] Work Phone: [facility] Unsolicited Start: 04-24-2024 End: 04-24-2024 Clinisync Result Encounter Jasiel Deshaun DO Work Phone: [facility] Unsolicited Start: 04-24-2024 End: 04-24-2024 Clinisync Result Encounter Jasiel Deshaun DO Work Phone: [facility] Unsolicited Start: 04-17-2024 End: 04-17-2024 Bamboo flowsheet Jasiel Deshaun DO Work Phone: [facility] Start: 04-17-2024 End: 04-17-2024 Bamboo flowsheet Jasiel Deshaun DO Work Phone: [facility] Start: 04-17-2024 End: 04-17-2024 flow sheet Jasiel Deshaun DO Work Phone: [facility] Comment on above: First trimester preg jeffrey; Diabetes mellitus screening; 25 weeks gestation of Start: 04-17-2024 End: 04-17-2024 ambulatory JASIEL DESHAUN Not Available Start: 04-10-2024 End: 04-10-2024 ambulatory JASIEL Kenny [facility]ANCOURTO [facility] Start: 03-13-2024 End: 03-13-2024 ambulatory SURI FRANCEEY Not Available Start: 02-13-2024 End: 02-13-2024 ambulatory JASIEL DESHAUN Not Available Start: 01-17-2024 End: 01-17-2024 ambulatory JASIEL DESHAUN Not Available Start: 08-22-2023 End: 08-22-2023 ambulatory JASIEL DESHAUN Not Available Start: 08-21-2022 End: 08-21-[address] [facility]LLAMY [facility] Facility: Start: 08-08-2021 End: 08-09-2021 ambulatory SHANTELLE HDEZ [facility] Start: 12-21-2020 End: 12-22-2020 ambulatory JIMMY MEEHAN [facility] Start: 12-21-2020 End: 12-21-2020 Subsequent hospital visit by physician Shantelle Dean PA-C Work Phone: [facility] Start: 03-18-2020 End: 03-18-2020 Subsequent hospital visit by physician Shantelle [place]D [place] [facility] Procedures Date Procedure Procedure Detail Performing Clinician Start: 07-15-2024 ALL CBC WITH AUTO DIFF Jasiel Deshaun DO Work Phone: Start: 07-10-2024 RECURRENT VAGINITIS (HTRX) Jasiel Deshaun [...] HOUR Jasiel Deshaun DO Work Phone: Start: 04-24-2024 ALL CBC WITH AUTO DIFF Jasiel Deshaun DO Work Phone: Start: 04-17-2024 Urnls dip stick/tabl et rgnt non-auto w/o micrscp Jasiel Deshaun DO Work Phone: Start: 08-22-2023 Cytp cerv/vag auto t hin layer prep mnl screen Jasiel Deshaun DO Work Phone: Start: 12-21-2020 Antibody rubella Ebony Meehan MD Work Phone: Plan of Treatment Date Care Activity Detail Author Start: 02-26-2027 DTaP/Tdap/Td vaccine (7 - Td) DTaP/Tdap/Td vaccine (7 - Td) [place], [place] Start: 10-23-2024 End: 10-23-2024 Patient encounter procedure 10/23/2024 10:20 AM EDT Office Visit [facility] [address] [place] [id number] Jasiel Meade, DO [address] [place] [address] [facility] Start: 08-25-2024 End: 08-25-2024 Patient encounter procedure 08/25/2024 9:00 AM EST Office Visit [facility] [address] [place] [address] Jasiel Meade, DO [address] [place] [address] [facility] Start: 07-10-2024 End: 07-10-2024 Patient encounter procedure 07/10/2024 10:30 AM EST Routine [facility] [address] [place] [id number] Jasiel Meade, DO [address] [place] [address] [facility] Start: 07-03-2024 End: 07-03-2025 Strep B DNA probe, amplification Strep B DNA probe, amplification Lab Routine Third trimester Expected: 07/03/2024 (Approximate), Expires: 07/03/2025 [facility] Work Phone: Comment on above: Expected: 07/03/2024 (Approximate), Expires: 07/03/2025 Start: 07-03-2024 End: 07-03-2024 Patient encounter procedure 07/03/2024 10:40 AM EST Routine [facility] [address] [place] [address] Jasiel Meade, [address] [place] [address] [facility] Start: 07-02-2024 End: 07-02-2024 Professional / ancillary services management 07/02/2024 2:00 PM EST Ancillary Procedure [facility] [address] [id number] [facility] Start: 06-19-2024 End: 06-19-2024 [...] EDT Ancillary Procedure [facility] [address] [place] [address] [facility] Start: 05-08-2024 End: 05-08-2025 US for US OB SCAN FOR GROWTH Imaging Routine size inconsistent with dates Expected: 05/08/2024 (Approximate), Expires: 05/08/2025 [facility] Work Phone: Comment on above: Expected: 05/08/2024 (Approximate), Expires: 05/08/2025 Start: 05-08-2024 End: 05-08-2024 Patient encounter procedure [facility] Comment on above: Arrived Start: 04-17-2024 End: 04-17-2025 CBC panel - Blood by Automated count CBC Lab Routine Diabetes mellitus screening 25 weeks gestation of Expected: 04/17/2024 (Approximate), Expires: 04/17/2025 [facility] Work Phone: Comment on above: Expected: 04/17/2024 (Approximate), Expires: 04/17/2025 Start: 04-17-2024 End: 04-17-2025 Measurement of glucose 1 hour after glucose challenge for glucose tolerance test Glucose tolerance, 1 hour Lab Routine Diabetes mellitus screening 25 weeks gestation of Expected: 04/17/2024 (Approximate), Expires: 04/17/2025 [facility] Comment on above: Expected: 04/17/2024 (Approximate), Expires: 04/17/2025 Start: 04-17-2024 End: 04-17-2024 Patient encounter procedure 04/17/2024 8:50 AM EDT Routine [facility] [address] [place] [id number] Jasiel Meade, [address] [place] [address] Arrived [facility] Comment on above: Arrived Start: 03-30-2024 Influenza vaccination Influenza Vacc ine (#1) [facility] Start: 03-18-2023 Screening for malign ant neoplasm of cervix [facility] Phone: Start: 06-12-2021 Screening for malign ant neoplasm of cervix Cervical cancer screen [place], [place] Start: 03-30-2021 Influenza vaccination Flu vacc ine (Season Ended) [facility] Phone: Start: 03-30-2020 Influenza vaccination Flu vaccine (# 1) [place], [place] Start: 06-12-2019 Screening for Chlamy flaco trachomatis Chlamydia screen [place], [place] Start: 09-13-2011 Hepatitis A vaccine (2 of 2 - 2-dose series) Hepatitis A vaccine (2 of 2 - 2-dose series) [place], [place] Start: 2007 COVID-19 Vaccine (1) COVID-19 Vaccin e (1) [facility] Phone: Start: 1995 Hepatitis C screening Hepatitis C sc reen [facility] [employer] Phone: CHLAMYDIA TRACHOMATI S (GENITO/STI) CHLAMYDIA TRACHOMATIS (GENITO/STI) Lab Routine STD exposure Ordered: 07/10/2024 [facility] Comment on above: Ordered: 07/10/2024 End: 12-21-2020 Mumps Antibody, IgG Mumps Antibody, IgG Lab Routine Once for 1 Occurrences starting 12/21/2020 until 12/21/2020 [facility] Phone: Comment on above: Once for 1 Occurrenc es starting 12/21/2020 until 12/21/2020 Mumps Antibody, IgG Mumps Antibo dy, IgG Lab Routine 12/21/2020 4:27 PM EDT [facility] Phone: Neisseria gonorrhoea e DNA [Presence] in Unspecified specimen by DIONICIO with probe detection Neisseria gonorrhea DNA probe, direct Lab Routine STD exposure Ordered: 07/10/2024 [facility] [employer] Comment on above: Ordered: 07/10/2024 End: 12-21-2020 Quantiferon TB Gold Quantiferon TB Gold Microbiology Routine Once for 1 Occurrences starting 12/21/2020 until 12/21/2020 [facility] Phone: Comment on above: Once for 1 Occurrenc es starting 12/21/2020 until 12/21/2020 Quantiferon TB Gold Quantiferon TB Gold Microbiology Routine 12/21/2020 4:27 PM EDT [facility] Phone: End: 12-21-2020 Rubeola Antibody, IgG Rubeola Antibody, IgG Lab Routine Once for 1 Occurrences starting 12/21/2020 until 12/21/2020 [facility] Phone: Comment on above: Once for 1 Occurrenc es starting 12/21/2020 until 12/21/2020 Rubeola Antibody, IgG Rubeola An tibody, IgG Lab Routine 12/21/2020 4:27 PM EDT [facility] Phone: SURESWAB(R) ADVANCED VAGINITIS PLUS, TMA SURESWAB(R) ADVANCED VAGINITIS PLUS, TMA Pathology and Cytology Routine Vaginal discharge Ordered: 07/10/2024 [facility] Work Phone: Comment on above: Ordered: 07/10/2024 End: 12-21-2020 Varicella Zoster Antibody, IgG Varicella Zoster Antibody, IgG Lab Routine Once for 1 Occurrences starting 12/21/2020 until 12/21/2020 [employer] Phone: Comment on above: Once for 1 Occurrenc es starting 12/21/2020 until 12/21/2020 Varicella Zoster Antibody, IgG Varicella Zoster Antibody, IgG Lab Routine 12/21/2020 4:27 PM EDT [facility] Work Phone: Immunizations Immunization Date Immunization Notes Care Provider Fa [facility] 06-28-2021 influenza virus vacc ine, unspecified formulation Jasiel Meade DO Work Phone: [facility] 03-09-2020 tuberculin skin test ; purified protein derivative solution, intradermal [facility] [place] 04-28-2019 influenza, injectabl e, quadrivalent, preservative free [facility] [place] 06-12-2018 influenza, injectabl e, quadrivalent, preservative free [facility] [place] 05-01-2018 tuberculin skin test ; purified protein derivative solution, intradermal [facility] [place] 09-12-2017 hepatitis B vaccine, adult dosage [facility] 04-13-2017 Human Papillomavirus 9-valent vaccine [facility] 04-10-2017 hepatitis B vaccine, adult dosage [facility] 03-07-2017 hepatitis B vaccine, adult dosage [facility] 03-07-2017 meningococcal polysaccharide (groups A, C, Y and W-135) diphtheria toxoid conjugate vaccine (MCV4P) [facility] 03-07-2017 tuberculin skin test ; purified protein derivative solution, intradermal [facility] 02-26-2017 tetanus toxoid, redu juve diphtheria toxoid, and acellular pertussis vaccine, adsorbed [facility] 02-26-2017 tuberculin skin test ; purified protein derivative solution, intradermal [facility] [place] 08-13-2014 Human Papillomavirus 9-valent vaccine [facility] [place] 04-01-2014 meningococcal polysaccharide (groups A, C, Y and W-135) diphtheria toxoid conjugate vaccine (MCV4P) [facility]2014 Human Papillomavirus 9-valent vaccine [facility] Payers Date Payer Category Payer Private Health Insurance [employer] [id number] 2022 Unknown [employer] [id number] 2022-Present [address] [place] [address] [id number] 2022 Unknown [id number] 2021 Unknown [id number] 2016 Private Health Insurance SHIV Renee GREGORIOZEUS [id number] 2016-Present [phone] [address] [place] [address] [id number] 1995 Unknown [id number]. 175 1995 Unknown [id number] [id number]. 593 1995 Unknown [id number] 2.16.840.1.940476.3.579.2. 1286 1995 Unknown [id number] 2.16.840.1.403235.3.579.2. 1259 1995 Unknown [id number] 2.16.840.1.695391.3.579.2. 1258 1995 Unknown [id number] 2.16.840.1.445496.3.579.2. 1258 1995 Unknown [id number] 2.16.840.1.578228.3.579.2. 1258 1995 Unknown [id number] 2.16.840.1.549000.3.579.2. 1258 1995 Unknown [id number] 2.16.840.1.171166.3.579.2. 1258 1995 Unknown [id number] 1995 Unknown [id number] 1995 Unknown [id number] 1995 Unknown [id number] [id number] 1995 Unknown [id number] 1959 Unknown [id number] Social History Date Type Detail Facility Start: 03-18-2020 End: 01-17-2024 Tobacco smoking status [facility] Never smoker [facility] Start: 03-18-2020 End: 01-17-2024 Tobacco use and exposure Never used [employer] Start: 02-05-2017 Alcohol Comment rarely [employer] Sex Assigned At Not on file [facility] Start: 1995 Sex Assigned At Female [employer] Work Phone: Start: 04-08-2024 End: 04-17-2024 Alcoholic beverage intake Ex-drinker (finding) [facility] Start: 01-17-2024 End: 04-17-2024 Alcoholic beverage intake [facility] Start: 01-17-2024 Tobacco use panel [facility] Start: 11-04-2023 [facility] Start: 02-20-2023 Gender identity Identifies as female gender (finding) [facility] Start: 02-20-2023 Sexual orientation Heterosexual (finding) [facility] Medical Equipment Procedure Code Equipment Code Equipment Original Text Equipment Identifier Dates Inject 1 each un flory the skin See administration instructions Use four times daily with insulin pen. [id number] Start: 05-26-2024 End: 06-25-2024 Clinical Notes 04-17-2024 to 07-10-2024 Sharynarnie Shipley, ADVERTISING DISPLAY ROTATOR - 07/10/2024 10:30 AM Kellen العراقي, HARDEEP - 07/03/2024 10:40 AM BJ Clifton - 06/19/2024 10:20 AM BJ Clifton - 06/05/2024 11:20 AM EST Note Date & Type Note Facility 07-10-2024 History of Presen t illness Narrative Reason [...] nursing note reviewed. Exam conducted with a conditioning machine operator present. Vitals: Estimated body mass index is 40.93 kg/m as calculated from the following: Height as of 03/22/23: 5' 2 . Weight as of this encounter: 223 lb 12.8 oz. BP: 114/78 Patient's last menstrual period was 10/21/2023. ASSESSMENT & PLAN ICD-10-CM 1. 37 weeks gestation of Z3A.37 CANCELED: POCT urinalysis dipstick manually resulted 2. Third trimester Z34.93 CANCELED: POCT urinalysis dipstick manually resulted 3. Vaginal discharge N89.8 SURESWAB(R) ADVANCED VAGINITIS PLUS, TMA 4. STD exposure Z20.2 CHLAMYDIA TRACHOMATIS (GENITO/STI) Neisseria gonorrhea DNA probe, direct Documented by Sharyn Shipley LPN on behalf of: Jasiel Meade DO documented in this encounter [facility] 07-03-2024 History of Presen t illness Narrative [...] nursing note reviewed. Exam conducted with a conditioning machine operator present. Vitals: Estimated body mass index is [...] Jasiel Meade DO documented in this encounter [facility] 06-19-2024 History of Presen t illness Narrative [...] of: BJ Garcia documented in this encounter [facility] 06-05-2024 History of Presen t illness Narrative [...] nursing note reviewed. Exam conducted with a conditioning machine operator present. Vitals: Estimated body mass index is [...] of: BJ Garcia documented in this encounter [facility] 05-22-2024 History of Presen t illness Narrative [...] nursing note reviewed. Exam conducted with a conditioning machine operator present. Vitals: Estimated body mass index is [...] Jasiel Meade DO documented in this encounter [facility] 05-08-2024 History of Presen t illness Narrative [...] nursing note reviewed. Exam conducted with a conditioning machine operator present. Vitals: Estimated body mass index is [...] of: BJ Garcia documented in this encounter [facility] 04-17-2024 History of Presen t illness Narrative Reason [...] nursing note reviewed. Exam conducted with a conditioning machine operator present. Vitals: Estimated body mass index is 38.04 kg/m as calculated from the following: Height as of 03/22/23: 5' 2 . Weight as of this encounter: 208 lb. BP: 112/68 Patient's last menstrual period was 10/21/2023. ASSESSMENT & PLAN ICD-10-CM 1. First trimester Z34.91 POCT urinalysis dipstick manually resulted Patient presents today for a routine obstetrics appointment. Patient is currently 25w4d with a Estimated Date of Delivery: 07/27/24. Patient desires to have IOL on 07/24/24. Patient was seen at [facility] and is scheduled to go back to [facility]. Discussed MSAFP negative and patient will repeat 1 hour gtt and CBC as it is routine timing for studies. RTC in 3 weeks. Documented by Shima العراقي LPN on behalf of: Jasiel Meade DO documented in this encounter [facility] Evaluation note Diagnosis 28 weeks gestation of Third trimester state, incidental size inconsistent with dates [facility] Diagnosis 30 weeks gestation of Third trimester state, incidental Gestational diabetes mellitus (GDM), antepartum, gestational diabetes method of control unspecified [facility] Diagnosis 32 weeks gestation of Third trimester state, incidental [facility] Diagnosis Third trimester state, incidental 34 weeks gestation of [facility] Diagnosis 36 weeks gestation of Third trimester state, incidental [facility] Diagnosis 37 weeks gestation of Third trimester state, incidental Vaginal discharge Leukorrhea, not specified as infective STD exposure [facility] Diagnosis First trimester state, incidental Diabetes mellitus screening Screening for diabetes mellitus 25 weeks gestation of documented in this encounter [facility] Summary Purpose Family History No Family History Records FoundNo Family History Records FoundNo Family History Records FoundNo Family History Records FoundNo Family History Records FoundNo Family History Records Found Advance Directives Documents on File Type Date Recorded Patient Quarry Supervisor Expl anation ACP-Advance Directive ACP-Power of Special Police Officer Additional Source Comments INFORMATION SOURCE (unrecogn ized section and content) DATE CREATED AUTHOR 03/12/2020 [facility] DATE CREATED AUTHOR AUTHOR'S ORGANIZ ATION 08/20/2021 [facility] DATE CREATED AUTHOR AUTHOR'S ORGANIZ ATION 02/18/2022 [facility] DATE CREATED AUTHOR AUTHOR'S ORGANIZ ATION 08/25/2022 [facility] DATE CREATED AUTHOR AUTHOR'S ORGANIZ ATION 04/12/2024 [facility] DATE CREATED AUTHOR AUTHOR'S ORGANIZ ATION 07/13/2024 [facility] Care Teams (unrecognized sec tion and content) Nanosystems Engineer Relationship Specialty [place] [address] [place] [address] PCP - General Family Medicine 03/22/23 [employer]os[employer] Engineer Relationship Specialty [place] [address] [place] [address] PCP - General Family Medicine 03/22/23 [employer]osystems Engineer Relationship Specialty [place] [address] [place] [address] PCP - General Family Medicine 03/22/23 Suri Canales PA [address] [place] [address] [place] [address] PCP - Medical [employer] 07/30/22 07/29/99 [employer] Engineer Relationship Specialty [place] [address] [place] [address] PCP - General Family Medicine 03/22/23 Suri Canales PA [address] [place] [address] [place] [address] PCP - Medical [place] [employer] 07/30/22 07/29/99 [employer] Engineer Relationship Specialty [place] [address] [place] [address] PCP - General Family Medicine 03/22/23 Suri Canales PA [address] [place] [address] PCP - Medical [employer] 07/30/22 07/29/99 [employer] Engineer Relationship Specialty [place] [address] [facility] [place] [address] PCP - General Family Medicine 03/22/23 Suri Canales PA [address] [place] [address] [place] [address] PCP - Medical [employer] 07/30/22 07/29/99 [employer] Engineer Relationship Specialty [place] [address] [place] [address] PCP - General Family Medicine 03/22/23 Suri Canales PA [address] [place] [address] [place] [address] PCP - Medical [employer] 07/30/22 07/29/99 [employer] Engineer Relationship Specialty [place] [address] [place] [address] PCP - General Family Medicine 03/22/23 Suri Canales PA [address] [place], [place] [address], [place] [address] PCP - Medical [employer] 07/30/22 07/29/99 [employer] Engineer Relationship Specialty [place] [address] [place] [address] PCP - General Family Medicine 03/22/23 Suri Canales [place] [address] PCP - Medical [employer] 07/30/22 07/29/99 [employer] Engineer Relationship Specialty [place] [address] [facility] [place] [address] PCP - General Family Medicine 03/22/23 Suri Canales PA [address] [place], [place] [address] [address] PCP - Medical [employer] 07/30/22 07/29/99 [employer] Engineer Relationship Specialty Start [place] [address] [place] [address] PCP - General Family Medicine 03/22/23 Suri Canales PA [address] [place], [place] [address] [address] PCP - Medical [employer] 07/30/22 07/29/99 [employer] Engineer Relationship Specialty [place] [address] [place] [address] PCP - General Family Medicine 03/22/23 [employer]osystems Engineer Relationship Specialty [place] [address] [place] [address] PCP - General Family Medicine 03/22/23 Reason [...] BE BASED ON THE PRIMARY CLINICAL RECORDS. [employer] provides no warranty or guarantee of the accuracy or completeness of information in this document.
--- NOTE | 2024-07-18 13:20 | PC.NURSE ---
Holli and 4 day old Wesley arrive for follow up. Holli states is tired but doing well. Stitches are irritated, using water bottle, tucks and Dermaplast spray for comfort. VSS and assessment WNL for Holli. Baby Wesley has not been not been feeding well, latches and needs stimulation to suck. VSS and assessment WNL, Color jaundiced, Parents report that he had a redraw of bili level at [facility] this AM. WEight is now down 11.0% from weight, urine is concentrated, stool is brown/yellow. Parents receive call from PCP level is 20.0 and prefers have double photo therapy for treatment. Parents request infant remain at [facility] for therapy. Dr Raphael here and will admit for needed therapy. Parents call PCP for update in plan of care. Family moved to room 258 for continued care.
[2024-07-18 13:22] VITALS: BP 130/86; PULSE 86; TEMP 36.6; O2SAT 98
== END 2024-07-18 13:31 | disposition home or self-care (01) ==
PROVIDERS: Visit Provider Obstetrics & Gynecology
DX: Z39.1 Encounter for care and examination of lactating mother (principal)

== ENCOUNTER 2024-08-13 08:15 | Outpatient (OUT) | payer OTHER, SELFPAY | END 2024-08-13 16:28 | disposition home or self-care (01) | LOC: FBCO 08:15 | PROVIDERS: Visit Provider Obstetrics & Gynecology | DX: Z39.1 Encounter for care and examination of lactating mother (principal) ==

== ENCOUNTER 2024-08-21 08:21 | Outpatient (OUT) | payer OTHER, SELFPAY ==
--- OUTSIDE RECORDS SUMMARY | 2024-08-21 08:33 | XMS_ITS | CCD ---
Author Organization [facility] Care Team Providers Care Biomedical Engineering Internship Name Role Phone Shantelle Dean Primary Care Provider [phone] JIMMY MEEHAN Referring Unavailable SHANTELLE DEAN Primary [...] WITH AUTO DIFFon BASOPHILS ABSOLUTE AUTO 0 [facility] Basophils/100 WBC (Bld) 0.2 % 0.2 - 2.0 % [facility] Eosinophils/100 WBC (Bld) 0.3 % Low 0.9 - 7.0 % [facility] Erythrocyte distribution width (RBC) [Ratio] 12.7 % 11.0 - 15.0 % [facility] Hematocrit (Bld) [Volume fraction] 31.8 % Low 36.0 - 48.0 % [facility] Hem[facility] (Bld) [Mass/Vol] 10.7 g/dL Low 12.0 - 16.0 g/dL [facility] IMMATURE GRANULOCYTES ABS AUTO 0.21 High [facility] Immature granulocytes/100 WBC (Bld) 1.4 % High 0.0 - 0.5 % [facility] Interpretation and review of laboratory results Abnormal [facility] LYMPHOCYTES ABSOLUTE AUTO 2.3 [facility] Lymphocytes/100 WBC (Bld) 14.5 % Low 20.5 - 60.0 % [facility] MCH (RBC) [Entitic mass] 30.4 pg 26.7 - 34.0 pg [facility] MCHC (RBC) [Mass/Vol] 33.6 g/dL 29.9 - 35.2 g/dL [facility] MCV (RBC) [Entitic vol] 90.3 fL 81.0 - 99.0 fL [facility] MONOCYTES ABSOLUTE AUTO 0.9 High [facility] Monocytes/100 WBC (Bld) 5.7 % 1.7 - 12.0 % [facility] NEUTROPHILS ABSOLUTE AUTO 12.1 High [facility] Neutrophils/100 WBC (Bld) 77.9 % High 43.0 - 75.0 % [facility] Platelet mean volume (Bld) [Entitic vol] 10.9 fL 9.5 - 13.5 fL [facility] Healthc are TBH EO # 0 [facility] TB[facility] PLT 187 [facility] TB[facility] RBC 3.52 Low [facility] TB[facility] WBC 15.5 High [facility] RECURRENT VAGINITIS (HTRX)on 07-11-2024 ATOPOBIUM VAGINAE 20.066 Abnormal [facility] ATOPOBIUM VAGINAE Detected Abnormal [facility] BVAB 2,3 (BACTERIAL VAGINOSIS ASSOCIATED BACTERIA 2, 3); MOBILUNCUS SPP 0 [facility] BVAB 2,3 (BACTERIAL VAGINOSIS ASSOCIATED BACTERIA 2, 3); MOBILUNCUS SPP Not detected [facility] Healthcare AGATA ALBICANS, PARAPSILOSIS, TROPICALIS 0 [facility] AGATA ALBICANS, PARAPSILOSIS, TROPICALIS Not detected [facility] AGATA GLABRATA 0 [facility] AGATA GLABRATA Not detected [facility]I [facility] Not [facility] CHLAMYDIA TRACHOMATIS 0 [facility] CHLAMYDIA TRACHOMATIS Not detected [facility] GARDNERELLA VAGINALIS 0 [facility] GARDNERELLA VAGINALIS Not detected [facility] Interpretation and review of laboratory results Abnormal [facility] MEGASPHAERA (TYPES 1, 2) 0 [facility] MEGASPHAERA (TYPES 1, 2) Not detected [facility] MYCOPLASMA GENITALIUM 0 [facility] MYCOPLASMA GENITALIUM Not detected [facility] NEISSERIA GONORRHOEAE 0 [facility] NEISSERIA GONORRHOEAE Not detected [facility] TRICHOMONAS VAGINALIS 0 [facility] TRICHOMONAS VAGINALIS Not detected [facility] Urinalysis macro (dipstick) panel (U)on 07-03-2024 Bilirubin, UA Negative Negative - 4(70) +++ mg/dL [facility] Blood, UA Negative Negative - 50 Bib/mcL [facility] Clarity, UA Clear [facility] re Color, UA Yellow [facility] Healthcar e Glucose, UA Negative Negative - 1999(110) ++++ mg/dL [facility] Interpretation and review of laboratory results Abnormal [facility] Ketones, UA Negative Negative - 160(16) ++++ mg/dL [facility] Leukocytes, UA Positive Negative - 500+++ Alvaro/mcL [facility] Comment on above: small Nitrite, UA Negative Negative - Positive [facility] pH, UA 7 5 - 9 [facility] Healthcar e Protein, UA Negative Negative - 1999(20) ++++ mg/dL [facility] Spec Grav, UA 1.02 1 - 1.03 [facility] Urobilinogen, UA 0.2 0.2 - 12 mg/dL [facility] Urinalysis macro (dipstick) panel (U)on 06-05-2024 Bilirubin, UA Negative Negative - 4(70) +++ mg/dL [facility] Blood, UA Negative Negative - 50 Bib/mcL [facility] Healthcare Clarity, UA Clear [facility] re Color, UA Yellow [facility] Healthcar e Glucose, UA Negative Negative - 1999(110) ++++ mg/dL [facility] Interpretation and review of laboratory results Abnormal [facility] Ketones, UA Negative Negative - 160(16) ++++ mg/dL [facility] Leukocytes, UA Trace Negative - 500+++ Alvaro/mcL [facility] Nitrite, UA Negative Negative - Positive [facility] pH, UA 7 5 - 9 [facility] Healthcar e Protein, UA Negative Negative - 1999(20) ++++ mg/dL [facility] Spec Grav, UA 1.015 1 - 1.03 [facility] care Urobilinogen, UA 0.2 0.2 - 12 mg/dL [facility] Urinalysis macro (dipstick) panel (U)on 05-22-2024 Bilirubin, UA Negative Negative - 4(70) +++ mg/dL [facility] Blood, UA Negative Negative - 50 Bib/mcL [facility] Healthcare Clarity, UA Clear [facility] re Color, UA Yellow [facility] Healthcar e Glucose, UA Negative Negative - 1999(110) ++++ mg/dL [facility] Interpretation and review of laboratory results Abnormal [facility] Ketones, UA Negative Negative - 160(16) ++++ mg/dL [facility] Leukocytes, UA Positive Negative - 500+++ Alvaro/mcL [facility] Comment on above: small Nitrite, UA Negative Negative - Positive [facility] pH, UA 7 5 - 9 [facility] Healthcar e Protein, UA Negative Negative - 1999(20) ++++ mg/dL [facility] Spec Grav, UA 1.015 1 - 1.03 [facility] Urobilinogen, UA 0.2 0.2 - 12 mg/dL [facility] Urinalysis macro (dipstick) panel (U)on 05-08-2024 Bilirubin, UA Negative Negative - 4(70) +++ mg/dL [facility] Blood, UA Negative Negative - 50 Bib/mcL [facility] Healthcare Clarity, UA Clear [facility] Healthca re Color, UA Yellow [facility] Health[facility] e Glucose, UA Negative Negative - 1999(110) ++++ mg/dL [facility] Interpretation and review of laboratory results Abnormal [facility] Ketones, UA Negative Negative - 160(16) ++++ mg/dL [facility] Leukocytes, UA Positive Negative - 500+++ Alvaro/mcL [facility] Comment on above: small Nitrite, UA Negative Negative - Positive [facility] pH, UA 7.0 5 - 9 [facility] Health[facility] e Protein, UA Negative Negative - 1999(20) ++++ mg/dL [facility] Spec Grav, UA 1.020 1 - 1.03 [facility] Urobilinogen, UA 0.2 0.2 - 12 mg/dL [facility] GLUCOSE TOLERANCE 3 HOURon 1 GLUCOSE TOLERANCE 3 HOUR High mg/dL [facility] Comment on above: GLU FAST 97H (<95) C ol: 05/01/24 0722 GLU 1HR 173 (<180) Col: 05/01/24 0823 GLU 2HR 162H (<155) Col: 05/01/24 0924 GLU 3HR 114 (<140) Col: 05/01/24 1022 Interpretation and review of laboratory results Abnormal [facility] ALL CBC WITH AUTO DIFFon BASOPHILS ABSOLUTE AUTO 0.0 [facility] Basophils/100 WBC (Bld) 0.2 % 0.2 - 2.0 % [facility] Eosinophils/100 WBC (Bld) 0.7 % Low 0.9 - 7.0 % [facility] Erythrocyte distribution width (RBC) [Ratio] 12.6 % 11.0 - 15.0 % [facility] Hematocrit (Bld) [Volume fraction] 38.2 % 36.0 - 48.0 % [facility] Health[facility] e Hemoglobin (Bld) [Mass/Vol] 13.1 g/dL 12.0 - 16.0 g/dL [facility] IMMATURE GRANULOCYTES ABS AUTO 0.12 High [facility] Immature granulocytes/100 WBC (Bld) 1.1 % High 0.0 - 0.5 % [facility] Interpretation and review of laboratory results Abnormal [facility] LYMPHOCYTES ABSOLUTE AUTO 2.1 [facility] Lymphocytes/100 WBC (Bld) 19.6 % Low 20.5 - 60.0 % [facility] MCH (RBC) [Entitic mass] 31.8 pg 26.7 - 34.0 pg [facility] MCHC (RBC) [Mass/Vol] 34.3 g/dL 29.9 - 35.2 g/dL [facility] MCV (RBC) [Entitic vol] 92.7 fL 81.0 - 99.0 fL [facility] MONOCYTES ABSOLUTE AUTO 0.7 [facility] Monocytes/100 WBC (Bld) 6.3 % 1.7 - 12.0 % [facility] NEUTROPHILS ABSOLUTE AUTO 7.9 High [facility] Neutrophils/100 WBC (Bld) 72.1 % 43.0 - 75.0 % [facility] Platelet mean volume (Bld) [Entitic vol] 10.2 fL 9.5 - 13.5 fL [facility] Healthc are TBH EO # 0.1 [facility] TBH PLT 254 [facility] TB RBC 4.12 Low [facility] TBH WBC 10.9 [facility] Healthcar e [facility] Health[facility] e Urinalysis macro (dipstick) panel (U)on 04-17-2024 Bilirubin, UA Negative Negative - 4(70) +++ mg/dL [facility] Blood, UA Negative Negative - 50 Bib/mcL [facility] Clarity, UA Clear [facility] re Color, UA Yellow [facility] Healthcar e Glucose, UA Negative Negative - 1999(110) ++++ mg/dL [facility] Interpretation and review of laboratory results Abnormal [facility] Ketones, UA Negative Negative - 160(16) ++++ mg/dL [facility] Leukocytes, UA Trace Negative - 500+++ Alvaro/mcL [facility] Nitrite, UA Negative Negative - Positive [facility] pH, UA 7.0 5 - 9 [facility] e Protein, UA Negative Negative - 1999(20) ++++ mg/dL [facility] Spec Grav, UA 1.025 1 - 1.03 [facility] Urobilinogen, UA 1.0 0.2 - 12 mg/dL [facility] Cytology Cervical or vaginal smear or scraping studyOrdered By: Norma Vega on 08-22-2023 [facility] e PAP ACOG PANEL 2: 21 to 29on 08-25-2022 . . [facility] Comment on above: Performed By: #### 4 [id number] #### [facility] [address] [address] [address] Matias Shukla Age Gdln ACOG Testing 21- Normal [facility] Comment on above: Performed By: #### 4 [id number] #### [facility] [address] [address] [address] Matias Shukla DIAGNOSIS: Comment [facility] Comment on above: Result Comment: NEGA TIVE FOR INTRAEPITHELIAL LESION OR MALIGNANCY. Performed By: #### 4 [id number] #### [facility] [address] [address] [address] Matias Shukla Methodology: Comment [facility] Comment on above: Result Comment: This liquid based ThinPrep(R) pap test was screened with the use of an image guided system. Performed By: #### 4 [id number] #### [facility] [address] [place] [address] Dr. Matias Shukla Note: Comment [facility] Comment on above: Result Comment: The Pap smear is a screening test designed to aid in the detection of premalignant and malignant conditions of the uterine cervix. It is not a diagnostic procedure and should not be used as the sole means of detecting cervical cancer. Both false-positive and false-negative reports do occur. . Performed By: #### 4 [id number] #### [facility] [address] [place] [address] Dr. Matias Shukla Performed by: Comment Normal [facility] Comment on above: Result Comment: Monika Prieto, Enterprise Systems Manager (ASCP) Performed By: #### 4 [id number] #### [facility] [address] [place] [address] Dr. Matias Shukla Reflex Criteria: Comment Normal [facility] Comment on above: Result Comment: The HPV DNA reflex criteria were not met with this specimen result therefore, no HPV testing was performed. . Performed By: #### 4 [id number] #### [facility] [address] [place] [address] Dr. Matias Shukla Specimen adequacy: Comment Normal [facility] Comment on above: Result Comment: Sati sfactory for evaluation. Endocervical and/or squamous metaplastic cells (endocervical component) are present. Performed By: #### 4 [id number] #### [facility] [address] [place] [address] Dr. Matias Shukla MUMPS IGG BLDon 02-07-2022 MUMPS IGG 1.14 Normal [facility] Comment on above: Result Comment: RAN IN TRIPLICATE NORMAL RANGES: < OR = 0.9O NEGATIVE ; NO DETECTABLE IgG ANTIBODY TO MUMPS 0.91 - 1.09 EQUIVOCAL; REPEAT TESTING SUGGESTED > OR = 1.10 POSITIVE ; INDICATES PRESENCE OF DETECTABLE IgG ANTIBODY TO MUMPS Performed By: #### 1 0055, [id number], [id number], [id number] #### [facility] [address] RUBELLAon 02-07-2022 RUBELLA 1.73 Normal [facility] Comment on above: Result Comment: NORM AL RANGES: < OR = 0.9O NEGATIVE ; NO DETECTABLE IgG ANTIBODY TO RUBELLA 0.91 - 1.09 EQUIVOCAL; REPEAT TESTING SUGGESTED > OR = 1.10 POSITIVE ; INDICATES PRESENCE OF DETECTABLE IgG ANTIBODY TO RUBELLA VIRUS Performed By: #### 1 0055, 93743, 33588, 82012 #### [facility] [address] RUBEOLA MEASLES IGGon 2021 RUBEO IGG 4.62 Normal [facility] Comment on above: Result Comment: NORM AL RANGES: < OR = 0.9O NEGATIVE ; NO DETECTABLE IgG ANTIBODY TO RUBEOLA 0.91 - 1.09 EQUIVOCAL; REPEAT TESTING SUGGESTED > OR = 1.10 POSITIVE ; INDICATES PRESENCE OF DETECTABLE IgG ANTIBODY TO RUBEOLA Performed By: #### 1 0055, [id number], 66019, 28044 #### [facility] [address] TB QUANTIFERON PLUSon 2021 MITOGEN MINUS NIL 8.15 IU/mL Normal [facility] Comment on above: Performed By: #### 3 1592 #### [facility] [address] NIL 0.03 IU/mL Normal [facility] Comment on above: Performed By: #### 3 1592 #### [facility] [address] TB QUANTIFERON Negative Normal NEGATIVE [facility] Comment on above: Result Comment: Eric tiferon TB Gold Interpretation (IU/mL): NEGATIVE: M. tuberculosis infection not likely. Nil: <=8.0 TB1 Antigen minus Nil (OY0ER-GOZ): <0.35 OR >=0.35; and <25% of Nil value. TB2 Antigen minus Nil (UU6OC-WUH): <0.35 OR >=0.35; and <25% of Nil [...] (https://www.cdc.gov/tb/publications/guidlines/default.htm Performed By: #### 3 1592 #### [facility] [address] TB1 AG 0.03 IU/mL Normal [facility] Comment on above: Performed By: #### 3 1592 #### [facility] [address] TB1 AG MINUS NIL 0.00 IU/mL Normal [facility] Comment on above: Performed By: #### 3 1592 #### [facility] [address] TB2 AG 0.04 IU/mL Normal [facility] Comment on above: Performed By: #### 3 1592 #### [facility] [address] TB2 AG MINUS NIL 0.01 IU/mL Normal [facility] Comment on above: Performed By: #### 3 1592 #### [facility] [address] VARICELLA ZOSTER IGGon 02-07 VARICELLA IGG 2.60 Normal [facility] Comment on above: Result Comment: NORM AL RANGES: < OR = 0.9O NEGATIVE ; NO DETECTABLE IgG ANTIBODY TO VARICELLA-ZOSTER VIRUS 0.91 - 1.09 EQUIVOCAL; REPEAT TESTING SUGGESTED > OR = 1.10 POSITIVE ; INDICATES PRESENCE OF DETECTABLE IgG ANTIBODY TO VARICELLA-ZOSTER VIRUS Performed By: #### 1 0055, 26409, 31468, 81029 #### [facility] [address] [facility] [address], [facility] HPV DNA High Riskon 08-19-19 HPV Interp [facility] Comment on above: Result [...] purposes. Performed By: #### H PVH #### [address] [address] Playground Equipment Erector: Rickey Watson MD HPV Type [address] [facility] Comment on above: Performed By: #### H PVH #### [address] [address] Playground Equipment Erector: Rickey Watson MD HPV Type [address] [facility] Comment on above: Performed By: #### H PVH #### [address] [address] Playground Equipment Erector: Rickey Watson MD Other High Risk HPV Not detected [facility] Comment on above: Performed By: #### H PVH #### [facility] [address] [place] [address] Playground Equipment Erector: Rickey Watson MD HPV DNA High Riskon 08-18-19 22 Source .GENITAL - NOT SPECIFIED [facility] Comment on above: Performed By: #### H PVH #### [facility] [address] [place] [address] Playground Equipment Erector: Rickey Watson MD HPV Sample .THIN PREP Normal [facility] Comment on above: Performed By: #### H PV #### [address] [id number] Playground Equipment Erector: Rickey Watson MD Chlamydia/GC DNA, TPon 08-10 Chlamydia Probe, TP Negative Normal NEG [facility] Comment on above: Result Comment: CHLA MYDIA [...] target. Performed By: #### C YTCGP #### [address] [id number] Playground Equipment Erector: Rickey Watson MD Gonorrhea Probe, TP Negative Normal NEG [facility] Comment on above: Result Comment: NEIS SERIA [...] target. Performed By: #### C YTCGP #### [address] [address] Playground Equipment Erector: Rickey Watson MD Cytologyon 08-08-2021 Cytology (NOTE) INTERPRETATION Cervical material, (ThinPrep vial, Imaging-assisted review): Specimen Adequacy: Satisfactory for evaluation. - Endocervical/transfor mation zone component present. - Scant cellularity. Descriptive Diagnosis: Atypical squamous cells of undetermined significance (ASC-US). Enterprise Systems Manager: AMANDA Michaels M.D. Electronically Signed Out rdd/08/18/2021 Amendments Originally Reported As: Procedure/Addendum Source: Clinical History LMP: Patient Name: Arvind Rec: Path Number: Fax: Normal [facility] Comment on above: Performed By: #### P PPVP #### [facility] [address], [place] [id number] Playground Equipment Erector: Rickey Watson MD QuantiFERON TBon 12-24-2020 Quanti Binu minus NIL 8.10 IU/mL Normal [facility] Comment on above: Performed By: #### R UBI, LUIZ, MARITZA, VZI #### [facility] [address] [place] [address] Playground Equipment Erector: Rickey Watson MD #### AQF #### [facility] [address] [place] [address] Playground Equipment Erector: Mark Grossman MD Quanti TB Gold Plus Negative Normal Negative [facility] Comment on above: Result Comment: (NOT E) [...] Mycobacterium tuberculosis Infection --- [place], 2010 (http://www.cdc.gov/mmwr/preview/mmwrhtml/zw9537q8.htm), for more information concerning test performance in low-prevalence populations and use in occupational screening. Performed By: #### R UBI, LUIZ, MARITZA, VZI #### [address] [address] Playground Equipment Erector: Rickey Watson MD #### AQF #### [facility] [address] [place] [address] Playground Equipment Erector: Mark Grossman MD Quanti TB1 minus NIL 0.00 IU/mL Normal 0.00-0.34 [facility] Comment on above: Performed By: #### R UBI, LUIZ, MARITZA, VZI #### [address] [id number] Playground Equipment Erector: Rickey Watson MD #### AQF #### [address] [address] Playground Equipment Erector: Mark Grossman MD Quanti TB2 minus NIL 0.01 IU/mL Normal 0.00-0.34 [facility] Comment on above: Performed By: #### R UBI, LUIZ, MARITZA, VZI #### [address] [address] Playground Equipment Erector: Rickey Watson MD #### AQF #### [facility] [address] [place] [address] Playground Equipment Erector: Mark Grossman MD QuantiFERON NIL 0.01 IU/mL Normal [facility] Comment on above: Result Comment: (NOT E) Performed By: [facility] [address] [place] [address] Sounding Device Operator: Carolyn Wei MD Performed By: #### R UBI, LUIZ, MARITZA, VZI #### [address] [address] Playground Equipment Erector: Rickey Watson MD #### AQF #### [facility] [address] [place] [address] Playground Equipment Erector: Mark Grossman MD Measles (Rubeola) Imon 12-22 Measles (Rubeola) Im 3.68 Normal >1.09 [facility] Comment on above: Result Comment: Interpretation: IMMUNE Reference Range: <0.91 Not Immune 0.91-1.09 Equivocal >1.09 Immune Performed By: #### R UBI, LUIZ, AMRITZA, VZI #### [address] [address] Playground Equipment Erector: Rickey Watson MD #### AQF #### [facility] [address] [place] [address] Playground Equipment Erector: Mark Grossman MD Mumps,Immun,Abon 12-22-2020 Mumps,Immun,Ab 1.16 Normal >1.09 [facility] Comment on above: Result Comment: Interpretation: IMMUNE Reference Range: <0.91 Not Immune 0.91-1.09 Equivocal >1.09 Immune Performed By: #### R UBI, LUIZ, MARITZA, VZI #### [place] [address] Playground Equipment Erector: Rickey Watson MD #### AQF #### [address] [id number] Playground Equipment Erector: Mark Grossman MD VZ Immunityon 12-22-2020 VZ Immunity 2.24 Normal >1.09 [facility] Comment on above: Result Comment: Interpretation: IMMUNE Reference Range: <0.91 Not Immune 0.91-1.09 Equivocal >1.09 Immune Performed By: #### R UBI, LUIZ, MARITZA, VZI #### [place] [address] Playground Equipment Erector: Rickey Watson MD #### AQF #### [facility] [address] [place] [address] Playground Equipment Erector: Mark Grossman MD Rubella Ab, IgGon 12-21-2020 Rubella Ab, IgG 16.2 IU/mL Normal [facility] Comment on above: Result Comment: REFERENCE RANGE: <5.0 NON-REACTIVE (non-immune) 5.0 TO 9.9 EQUIVOCAL >=10.0 REACTIVE (immune) Performed By: #### R UBI, LUIZ, MARITZA, VZI #### [employer] [address] [place] [address] Playground Equipment Erector: Rickey Watson MD #### AQF #### [facility] [address] [place] [address] Playground Equipment Erector: Mark Grossman MD Rubella antibody, IgGOrdered By: Jimmy Meehan on 12-21-2020 Rubella virus IgG Ql (S) 16.2 IU/mL [facility] Phone: Comment on above: REFERENCE RANGE: <5.0 NON-REACTIVE (non-immune) 5.0 TO 9.9 EQUIVOCAL >=10.0 REACTIVE (immune) [facility] Phone: Lab - Toxicology Resultson 0 03-11-2020 Lab - Toxicology Results [id number] Normal [facility] QuantiFERON TB Gold (In Tube ) LCon 03-08-2020 QuantiFERON Criteria LC Comment [facility] Comment on above: Result Comment: The QuantiFERON-TB Gold Plus result is determined by subtracting the Nil value from either TB antigen (Ag) tube. The mitogen tube serves as a control for the test. Performed By: #### 4 [id number], [id number] #### [facility] (DEFAULT) [address] [place] [address] QuantiFERON M. tuberculosis1 Ag Value LC 0.09 IU/mL [facility] Comment on above: Performed By: #### 4 [id number], [id number] #### [facility] (DEFAULT) [address] [place] [address] QuantiFERON M. tuberculosis2 Ag Value LC 0.08 IU/mL [facility] Comment on above: Performed By: #### 4 [id number], [id number] #### [facility] (DEFAULT) [address] [place] [address] QuantiFERON Mitogen Value LC >10.00 [facility] Comment on above: Result Comment: Perf ormed At: [id number] [place], [place] [id number] Kat Arevalo PhD Ph:[phone] Performed By: #### 4 [id number], [id number] #### [facility] (DEFAULT) [address] [place] [address] QuantiFERON Nil Value LC 0.01 IU/mL [facility] Comment on above: Performed By: #### 4 [id number] #### [facility] (DEFAULT) [address] [place] [address] QuantiFERON-TB Gold Plus LCo n 03-08-2020 QuantiFERON-TB Gold Plus LC Negative Negative [facility] Comment on above: Result Comment: Perf ormed At: [id number] [place], [place] [id number] Kat Arevalo PhD Ph:[phone] Performed By: #### 4 [id number], [id number] #### [facility] (DEFAULT) [address] [place] [address] QuantiFERON Incubation LC Incubation performed. [facility] Comment on above: Result Comment: Perf ormed At: [id number] [place], [place] [id number] Kat Arevalo PhD Ph:[phone] Performed By: #### 4 [id number] #### [facility] (DEFAULT) [address] [place] [address]20 HBSab Qnt LCon 03-05-2020 Hep B Surf Ab Quant LC 145.6 mIU/mL Immunity>9.9 [facility] Comment on above: Result Comment: Stat us of Immunity Anti-HBs Level Inconsistent with Immunity 0.0 - 9.9 Consistent with Immunity >9.9 Performed At: [facility] [address] [place], [place] [id number] Kat Arevalo PhD Ph:[phone] Performed By: #### 1 [id number] #### [facility] (DEFAULT) [address] [place] [address]66[address] Measles/Mumps/Rubella Immuni ty LCon 03-05-2020 Mumps Abs, IgG LC 69.5 AU/mL Immune >10.9 [facility] Comment on above: Result Comment: Nega tive <9.0 Equivocal 9.0 - 10.9 Positive >10.9 A positive result generally indicates past exposure to Mumps virus or previous vaccination. Performed At: [facility] [address] [place], [place] [id number] Kat Arevalo PhD Ph:[phone] Performed By: #### 1 [id number] #### [facility] (DEFAULT) [address] [place] [address]34 Rubella Antibodies, IgG LC 1.75 index Immune >0.99 [facility] Comment on above: Result Comment: Non- immune <0.90 Equivocal 0.90 - 0.99 Immune >0.99 Performed By: #### 1 [id number] #### [facility] (DEFAULT) [address] [place] [address]09 Rubeola Ab, IgG, EIA LC >300.0 Immune >16.4 [facility] Comment on above: Result Comment: Nega tive <13.5 Equivocal 13.5 - 16.4 Positive >16.4 Presence of antibodies to Rubeola is presumptive evidence of immunity except when acute infection is suspected. Performed By: #### 1 [id number], [id number] #### [facility] (DEFAULT) [address] [place] [address] 41873 Nicotine Metabolite, Urine L Con 03-05-2020 Cotinine LC Negative Xiutga=835 [facility] Comment on above: Result Comment: [facility]f [facility]med [facility]: [facility] [place] [address] [place] [id number] Jose Schwartz PhD Ph:[phone] Performed By: #### 1 [id number] #### [facility] ([facility]) [address] [id number] Vital Signs Date Time Vital Sign Value Performing Clinician Susy ramon 07-10-2024 10:58-0500 Body mass index (BMI) [Ratio] 40.93 kg/m2 Jasiel Deshaun DO Work Phone: [facility] 07-10-2024 10:58-0500 Body weight 101.52 kg Jasiel Deshaun DO Work Phone: [facility] 07-10-2024 10:58-0500 Diastolic blood pressure 78 mm[Hg] Jasiel Deshaun DO Work Phone: [facility] 07-10-2024 10:58-0500 Systolic blood pressure 114 mm[Hg] Jasiel Deshaun DO Work Phone: [facility] 07-03-2024 11:01-0500 Body mass index (BMI) [Ratio] 41.12 kg/m2 Jasiel Deshaun DO Work Phone: [facility] 07-03-2024 11:01-0500 Body weight 101.97 kg Jasiel Deshaun DO Work Phone: [facility] 07-03-2024 11:01-0500 Diastolic blood pressure 70 mm[Hg] Jasiel Deshaun DO Work Phone: [facility] 07-03-2024 11:01-0500 Systolic blood pressure 120 mm[Hg] Jasiel Deshaun DO Work Phone: [facility] 06-19-2024 10:40-0500 Body mass index (BMI) [Ratio] 40.02 kg/m2 Suri LORENZO Work Phone: [facility] 06-19-2024 10:40-0500 Body weight 99.25 kg Suri LORENZO Work Phone: [facility] 06-19-2024 10:40-0500 Diastolic blood pressure 74 mm[Hg] Suri LORENZO Work Phone: [facility] 06-19-2024 10:40-0500 Systolic blood pressure 110 mm[Hg] Suri Parker PA Work Phone: [facility] 06-05-2024 11:46-0500 Body mass index (BMI) [Ratio] 39.69 kg/m2 Suri [place] PA Work Phone: [facility] 06-05-2024 11:46-0500 Body weight 98.43 kg Suri Parker PA Work Phone: [facility] 06-05-2024 11:46-0500 Diastolic blood pressure 80 mm[Hg] Suri [place] PA Work Phone: [facility] 06-05-2024 11:46-0500 Systolic blood pressure 114 mm[Hg] Suri [place] PA Work Phone: [facility] 05-22-2024 09:57-0400 Body mass index (BMI) [Ratio] 39.1 kg/m2 Jasiel Deshaun DO Work Phone: [facility] 05-22-2024 09:57-0400 Body weight 96.98 kg Jasiel Deshaun DO Work Phone: [facility] 05-22-2024 09:57-0400 Diastolic blood pressure 72 mm[Hg] Jasiel Deshaun DO Work Phone: [facility] 05-22-2024 09:57-0400 Systolic blood pressure 110 mm[Hg] Jasiel Deshaun DO Work Phone: [facility] 05-08-2024 09:31-0400 Body mass index (BMI) [Ratio] 38.59 kg/m2 Suri Parker PA Work Phone: [facility] 05-08-2024 09:31-0400 Body weight 95.71 kg Suri Parker PA Work Phone: [facility] 05-08-2024 09:31-0400 Diastolic blood pressure 78 mm[Hg] Suri Parker PA Work Phone: [facility] 05-08-2024 09:31-0400 Systolic blood pressure 120 mm[Hg] Suri [place] PA Work Phone: [facility] 04-17-2024 09:04-0400 Body mass index (BMI) [Ratio] 38.04 kg/m2 Jasiel Deshaun DO Work Phone: [facility] 04-17-2024 09:04-0400 Body weight 94.35 kg Jasiel Deshaun DO Work Phone: [facility] 04-17-2024 09:04-0400 Diastolic blood pressure 68 mm[Hg] Jasiel Deshaun DO Work Phone: [facility] 04-17-2024 09:04-0400 Systolic blood pressure 112 mm[Hg] [...] Available Start: 06-19-2024 End: 06-19-2024 Bamboo flowsheet Srui Canales PA Work Phone: [facility] [...] OB Start: 06-05-2024 End: 06-05-2024 flow sheet uSri Canales PA Work Phone: [facility] [...] Start: 04-10-2024 End: 04-10-2024 ambulatory JASIEL Kenny [facility]RTO [facility] Start: 03-13-2024 End: 03-13-2024 ambulatory SURI FRANCEEY Not Available Start: 02-13-2024 End: 02-13-2024 ambulatory JASIEL DESHAUN Not Available Start: 01-17-2024 End: 01-17-2024 ambulatory JASIEL DESHAUN Not Available Start: 08-22-2023 End: 08-22-2023 ambulatory JASIEL DESHAUN Not Available Start: 08-21-2022 End: 08-21-[address] BELLAMY [facility] Facility: Start: 08-08-2021 End: 08-09-2021 ambulatory SHANTELLE HDEZ [facility] Start: 12-21-2020 End: 12-22-2020 ambulatory JIMMY MEEHAN [facility] Start: 12-21-2020 End: 12-21-2020 Subsequent hospital visit [...] - Td) DTaP/Tdap/Td vaccine (7 - Td) [place], [place] Start: 10-23-2024 End: 10-23-2024 Patient encounter procedure 10/23/2024 10:20 AM EDT Office Visit [facility] [address] [place] [id number] Jasiel Meade, DO [address] [place] [address] [facility] Start: 08-25-2024 End: 08-25-2024 Patient encounter procedure 08/25/2024 9:00 AM EST Office Visit [facility] [address] [place] [address] Jaisel Meade, DO [address] [place] [address] [facility] Start: 07-10-2024 End: 07-10-2024 Patient encounter procedure 07/10/2024 10:30 AM EST Routine [facility] [address] [address] Jasiel Meade, DO [address] [place] [address] [facility] Start: 07-03-2024 End: 07-03-2025 Strep B DNA probe, amplification Strep B DNA probe, amplification Lab Routine Third trimester Expected: 07/03/2024 (Approximate), Expires: 07/03/2025 [facility] Work Phone: Comment on above: Expected: 07/03/2024 (Approximate), Expires: 07/03/2025 Start: 07-03-2024 End: 07-03-2024 Patient encounter procedure 07/03/2024 10:40 AM EST Routine [facility] [address] [address] Jasiel Meade, [address] [place] [address] [facility] Start: 07-02-2024 End: 07-02-2024 Professional / ancillary services management 07/02/2024 2:00 PM EST Ancillary Procedure [facility] [address] [address] [facility] Start: 06-19-2024 End: 06-19-2024 [...] OB [address] [address] [facility] Start: 05-08-2024 End: [...] AM EDT Routine [facility] [address] [phone] Jasiel Meade, [address] [place] [address] Arrived [facility] Comment on above: Arrived Start: 03-30-2024 Influenza vaccination Influenza Vacc ine (#1) [facility] Start: 03-18-2023 Screening for malign ant neoplasm of cervix [facility] Start: 06-12-2021 Screening for malign ant neoplasm of cervix Cervical cancer screen [place], [place] Start: 03-30-2021 Influenza vaccination Flu vacc ine (Season Ended) [facility]: Start: 03-30-2020 Influenza vaccination Flu vaccine (# 1) [place], [place] Start: 06-12-2019 Screening for Chlamy flaco trachomatis Chlamydia screen [place], [place] Start: 09-13-2011 Hepatitis A vaccine (2 of 2 - 2-dose series) Hepatitis A vaccine (2 of 2 - 2-dose series) [place], [place] Start: 2007 COVID-19 Vaccine (1) COVID-19 Vaccin e (1) [facility]: Start: 1995 Hepatitis C screening Hepatitis C sc reen [facility] [employer] Phone: CHLAMYDIA TRACHOMATI S (GENITO/STI) CHLAMYDIA TRACHOMATIS (GENITO/STI) Lab Routine STD exposure Ordered: 07/10/2024 [facility] Comment on above: Ordered: 07/10/2024 End: 12-21-2020 Mumps Antibody, IgG Mumps Antibody, IgG Lab Routine Once for 1 Occurrences starting 12/21/2020 until 12/21/2020 [facility]: Comment on above: Once for 1 Occurrenc es starting 12/21/2020 until 12/21/2020 Mumps Antibody, IgG Mumps Antibo dy, IgG Lab Routine 12/21/2020 4:27 PM EDT [employer] Phone: Neisseria gonorrhoea e DNA [Presence] in Unspecified specimen by DIONICIO with probe detection Neisseria gonorrhea DNA probe, direct Lab Routine STD exposure Ordered: 07/10/2024 [facility] [place] Comment on above: Ordered: 07/10/2024 End: 12-21-2020 Quantiferon TB Gold Quantiferon TB Gold Microbiology Routine Once for 1 Occurrences starting 12/21/2020 until 12/21/2020 [employer] Phone: Comment on above: Once for 1 Occurrenc es starting 12/21/2020 until 12/21/2020 Quantiferon TB Gold Quantiferon TB Gold Microbiology Routine 12/21/2020 4:27 PM EDT [employer] Phone: End: 12-21-2020 Rubeola Antibody, IgG Rubeola Antibody, IgG Lab Routine Once for 1 Occurrences starting 12/21/2020 until 12/21/2020 [facility] Phone: Comment on above: Once for 1 Occurrenc es starting 12/21/2020 until 12/21/2020 Rubeola Antibody, IgG Rubeola An tibody, IgG Lab Routine 12/21/2020 4:27 PM EDT [facility] Phone: SURESWAB(R) ADVANCED VAGINITIS PLUS, TMA SURESWAB(R) ADVANCED VAGINITIS PLUS, TMA Pathology and Cytology Routine Vaginal discharge Ordered: 07/10/2024 [facility] Work Phone: Comment on above: Ordered: 07/10/2024 End: 12-21-2020 Varicella Zoster Antibody, IgG Varicella Zoster Antibody, IgG Lab Routine Once for 1 Occurrences starting 12/21/2020 until 12/21/2020 [facility] Phone: Comment on above: Once for 1 Occurrenc es starting 12/21/2020 until 12/21/2020 Varicella Zoster Antibody, IgG Varicella Zoster Antibody, IgG Lab Routine 12/21/2020 4:27 PM EDT [facility] Work Phone: Immunizations Immunization Date Immunization Notes Care Provider Fa [facility] 06-28-2021 influenza virus vacc ine, unspecified formulation Jasiel Meade DO Work Phone: [facility] 03-09-2020 tuberculin skin test ; purified protein derivative solution, intradermal [facility] [place] 04-28-2019 influenza, injectabl e, quadrivalent, preservative free [facility] [place] 06-12-2018 influenza, injectabl e, quadrivalent, preservative free [facility] 05-01-2018 tuberculin skin test ; purified protein derivative solution, intradermal [facility] 09-12-2017 hepatitis B vaccine, adult dosage [facility] 04-13-2017 Human Papillomavirus 9-valent vaccine [facility] 04-10-2017 hepatitis B vaccine, adult dosage [facility] 03-07-2017 hepatitis B vaccine, adult dosage [facility] 03-07-2017 meningococcal polysaccharide (groups A, C, Y and W-135) diphtheria toxoid conjugate vaccine (MCV4P) [facility] 03-07-2017 tuberculin skin test ; purified protein derivative solution, intradermal [facility] 02-26-2017 tetanus toxoid, redu juve diphtheria toxoid, and acellular pertussis vaccine, adsorbed [facility] [place] 02-26-2017 tuberculin skin test ; purified protein derivative solution, intradermal [facility] 08-13-2014 Human Papillomavirus 9-valent vaccine [facility] [place] 04-01-2014 meningococcal polysaccharide (groups A, C, Y and W-135) diphtheria toxoid conjugate vaccine (MCV4P) [facility]2014 Human Papillomavirus 9-valent vaccine [facility] Payers Date Payer Category Payer Private Health Insurance [employer] [id number] 2022 Unknown [employer] [id number] 2022-Present [address] [place] [address] [id number] 2022 Unknown [id number] 2021 Unknown [id number] 2016 Private Health Insurance SHIV Renee GREGORIOZEUS [id number] 2016-Present [phone] [address] [place] [address] [id number] 1995 Unknown [id number] 2.16.840.1.110034.3.579.2. 175 1995 Unknown [id number] 2.16.840.1.849388.3.579.2. 593 1995 Unknown [id number] 2.16.840.1.813852.3.579.2. 1286 1995 Unknown [id number] 2.16.840.1.897193.3.579.2. 1259 1995 Unknown [id number] 2.16.840.1.408870.3.579.2. 1258 1995 Unknown [id number] 2.16.840.1.824569.3.579.2. 1258 1995 Unknown [id number] 2.16.840.1.586066.3.579.2. 1258 1995 Unknown [id number] 2.16.840.1.948326.3.579.2. 1258 1995 Unknown [id number] 2.16.840.1.796340.3.579.2. 1258 1995 Unknown [id number] 2.16.840.1.539193.3.579.2. 1258 1995 Unknown [id number] 2.16.840.1.767825.3.579.2. 1258 1995 Unknown [id number] 2.16.840.1.354266.3.579.2. 1258 1995 Unknown [id number] 2.16.840.1.159000.3.579.2. 1258 1995 Unknown [id number] 2.16.840.1.783823.3.579.2. 9 1959 Unknown [id number] Social History Date Type Detail Facility Start: 03-18-2020 End: 01-17-2024 Tobacco smoking status [facility] Never smoker [facility] Start: 03-18-2020 End: 01-17-2024 Tobacco use and exposure Never used [employer] Start: 02-05-2017 Alcohol Comment rarely [employer] Sex Assigned At Not on file [employer] Start: 1995 Sex Assigned At Female [employer] Work Phone: Start: 04-08-2024 End: 04-17-2024 Alcoholic beverage intake Ex-drinker (finding) [facility] Start: 01-17-2024 End: 04-17-2024 Alcoholic beverage intake [facility] Start: 01-17-2024 Tobacco use panel [facility] Start: 11-04-2023 [facility] Start: 02-20-2023 Gender identity Identifies as female gender (finding) [facility] Start: 02-20-2023 Sexual orientation Heterosexual (finding) [facility] Medical Equipment Procedure Code Equipment Code Equipment Original Text Equipment Identifier Dates Inject 1 each un flory the skin See administration instructions Use four times daily with insulin pen. [id number] Start: 05-26-2024 End: 06-25-2024 Clinical Notes 04-17-2024 to 07-10-2024 Sharynarnie Shipley, HEAD PORTER - 07/10/2024 10:30 AM Kellen العراقي, HARDEEP [...] nursing note reviewed. Exam conducted with a land management forester present. Vitals: Estimated body mass index is [...] Jasiel Meade DO documented in this encounter [facility] 07-03-2024 History of Presen t illness Narrative [...] nursing note reviewed. Exam conducted with a land management forester present. Vitals: Estimated body mass index is [...] Jasiel Meade DO documented in this encounter [facility] 06-19-2024 History of Presen t illness Narrative [...] of: BJ Garcia documented in this encounter [facility] 06-05-2024 History of Presen t illness Narrative [...] nursing note reviewed. Exam conducted with a land management forester present. Vitals: Estimated body mass index is [...] of: BJ Garcia documented in this encounter [facility] 05-22-2024 History of Presen t illness Narrative [...] nursing note reviewed. Exam conducted with a land management forester present. Vitals: Estimated body mass index is [...] Jasiel Meade DO documented in this encounter [facility] 05-08-2024 History of Presen t illness Narrative [...] nursing note reviewed. Exam conducted with a land management forester present. Vitals: Estimated body mass index is [...] of: BJ Garcia documented in this encounter [facility] 04-17-2024 History of Presen t illness Narrative [...] nursing note reviewed. Exam conducted with a land management forester present. Vitals: Estimated body mass index is [...] IOL on 07/24/24. Patient was seen at [facility] and is scheduled to go back to [...] Documents on File Type Date Recorded Patient Sql Report Developer Expl anation ACP-Advance Directive ACP-Power of Resourcing Advisor Additional Source Comments INFORMATION SOURCE (unrecogn ized section and content) DATE CREATED AUTHOR 03/12/2020 [facility] DATE CREATED AUTHOR AUTHOR'S ORGANIZ ATION 08/20/2021 [facility] DATE CREATED AUTHOR AUTHOR'S ORGANIZ ATION 02/18/2022 [facility] DATE CREATED AUTHOR AUTHOR'S ORGANIZ ATION 08/25/2022 [facility] DATE CREATED AUTHOR AUTHOR'S ORGANIZ ATION 04/12/2024 [facility] DATE CREATED AUTHOR AUTHOR'S ORGANIZ ATION 07/13/2024 [facility] Care Teams (unrecognized sec tion and content) [employer] Internship Relationship Specialty [place] [address] [place] [address] PCP - General Family Medicine 03/22/23 [employer] Intern[employer] Relationship Specialty [place] [address] [place] [address] PCP - General Family Medicine 03/22/23 [employer] Internship Relationship Specialty [place] [address] [place] [address] PCP - General Family Medicine 03/22/23 Suri Canales PA [address] [place] [address] [place] [address] PCP - Medical [employer] 07/30/22 07/29/99 [employer] Internship Relationship Specialty [place] [address] [place] [address] PCP - General Family Medicine 03/22/23 Suri Canales PA [address] [place] [address] [place] [address] PCP - Medical [employer] 07/30/22 07/29/99 [employer] Internship Relationship Specialty [place] [address] [place] [address] PCP - General Family Medicine 03/22/23 Suri Canales PA [address] [place] [address] PCP - Medical [employer] 07/30/22 07/29/99 [employer] Internship Relationship Specialty [place] [address] [facility] [place] [address] PCP - General Family Medicine 03/22/23 Suri Canales PA [address] [place] [address] [place] [address] PCP - Medical [employer] 07/30/22 07/29/99 [employer] Internship Relationship Specialty [place] [address] [place] [address] PCP - General Family Medicine 03/22/23 Suri Canales PA [address] [place] [address] [place] [address] PCP - Medical [employer] 07/30/22 07/29/99 [employer] Internship Relationship Specialty [place] [address] [place] [address] PCP - General Family Medicine 03/22/23 Suri Canales PA [address] [place], [place] [address], [place] [address] PCP - Medical [employer] 07/30/22 07/29/99 [employer] Internship Relationship Specialty Start [place] [address] [place] [address] PCP - General Family Medicine 03/22/23 Suri Canales PA [facility] [place] [address] PCP - Medical [employer] 07/30/22 07/29/99 [employer] Internship Relationship Specialty [place] [address] [facility] [place] [address] PCP - General Family Medicine 03/22/23 Suri Canales PA [address] [place], [place] [address] [address] PCP - Medical [employer] 07/30/22 07/29/99 [employer] Internship Relationship Specialty Start [place] [address] [place] [address] PCP - General Family Medicine 03/22/23 Suri Canales PA [address] [place], [place] [address] [address] PCP - Medical [employer] 07/30/22 07/29/99 [employer] Internship Relationship Specialty [place] [address] [place] [address] PCP - General Family Medicine 03/22/23 Biomedical Engineering Internship Relationship Specialty [place] [address] [place] [address] PCP - General Family Medicine 03/22/23 Reason [...] BE BASED ON THE PRIMARY CLINICAL RECORDS. [email or web address] provides no warranty or guarantee of the accuracy or completeness of information in this document.
== END 2024-08-21 14:03 | disposition home or self-care (01) ==
LOC: FBCO 08:23
PROVIDERS: Visit Provider Obstetrics & Gynecology
DX: Z39.1 Encounter for care and examination of lactating mother (principal)

== ENCOUNTER 2024-09-17 21:52 | Outpatient (REF) | payer OTHER, SELFPAY ==
--- OUTSIDE RECORDS SUMMARY | 2024-09-17 21:56 | XMS_ITS | CCD ---
Author Organization [facility] Care Team Providers Care Outbound Supervisor Name Role Phone Shantelle Dean Primary Care Provider JIMMY MEEHAN Referring Unavailable SHANTELLE DEAN Primary Care Unavailable SHANTELLE DEAN Referring Unavailable SHANTELLE DEAN Primary Care Unavailable MISHaroon, DR BELLAMY Primary Care Unavailable DESHAUN, DR WEATHERS Attending Unavailable DESHAUN, DR WEATHERS Consulting Unavailable DESHAUN, DR WEATHERS Admitting Unavailable JASIEL MEADE R Referring Unavailable Shnatelle Dean MD Primary Care Provider Suri Johnson Unavailable SURI CANALES Attending Unavailable DESHAUN, JASIEL Attending Unavailable PARKER, SURI Attending Unavailable DESHAUN, JASIEL Attending Unavailable PARKER, SURI Attending Unavailable DESHAUN, JASIEL Attending Unavailable PARKER, SURI Attending Unavailable PARKER, SURI Attending Unavailable DESHAUN, JASIEL Attending Unavailable DESHAUN, JASIEL Attending Unavailable Unavailable Primary Care Provider Unavailabl e Medications Current Medications Medication Drug Class(es) Dates Sig (Normalized) Sig (Original) citalopram 20 mg oral tablet (5 sources) Serotonin Reuptake Inhibitor Start: 03-13-2024 End: [...] Active insulin glargine 100 unt/ml injectable solution (13 sources) Insulin Analog Start: 05-26-2024 End: 08-26-2024 inject 10 [IU] by subcutaneous injection in the evening insulin glargine (Lantus) 100 UNIT/ML injection Indications: Hyperglycemia , GESTATIONAL DIABETES Inject 10 Units under the skin in the evening 3 mL 05/26/2024 08/26/2024 Discontinued (Therapy completed) magnesium oxide 400 mg oral tablet (20 sources) take 1 tablet by mouth in the morning magnesium oxide (Mag-Ox) 400 MG tablet Take 400 mg by mouth in the morning. Active norethindrone 0.35 mg oral tablet (2 sources) Start: 08-26-2024 End: 09-23-2024 take 1 tablet by mouth once daily, then take 1 tablet by mouth once daily norethindrone (Micronor) 0.35 MG tablet Indications: 6 weeks follow-up Take 1 tablet (0.35 mg) by mouth Daily for 28 days Take 1 tablet by mouth daily 28 tablet 11 08/26/2024 09/23/2024 Active Semglee, yfgn, 100 UNIT/ML injection (2 sources) Start: 05-26-2024 inject 10 [IU] by subcutaneous injection in the evening Semglee, yfgn, 100 UNIT/ML injection INJECT 10 UNITS SUBCUTANEOUSLY IN THE EVENING 05/26/2024 Active Problems Active Problems Problem Classification Problem [...] 07-10-2024 Episodic Other and delivery including normal (16 sources) Third trimester ; Translations: [Encounter for [...] 08-20-2023 08-20-2023 Episodic Contraceptive and procreative management (4 sources) Patient encounter status; Translations: [Encounter for [...] WITH AUTO DIFFon BASOPHILS ABSOLUTE AUTO 0 [facility] Basophils/100 WBC (Bld) 0.2 % 0.2 - 2.0 % [facility] Eosinophils/100 WBC (Bld) 0.3 % Low 0.9 - 7.0 % [facility] Erythrocyte distribution width (RBC) [Ratio] 12.7 % 11.0 - 15.0 % [facility] Hematocrit (Bld) [Volume fraction] 31.8 % Low 36.0 - 48.0 % [facility] Hemoglobin (Bld) [Mass/Vol] 10.7 g/dL Low 12.0 - 16.0 g/dL [facility] IMMATURE GRANULOCYTES ABS AUTO 0.21 High [facility] Immature granulocytes/100 WBC (Bld) 1.4 % High 0.0 - 0.5 % [facility] Interpretation and review of laboratory results Abnormal [facility] LYMPHOCYTES ABSOLUTE AUTO 2.3 [facility] Lymphocytes/100 WBC (Bld) 14.5 % Low 20.5 - 60.0 % [facility] MCH (RBC) [Entitic mass] 30.4 pg 26.7 - 34.0 pg [facility] MCHC (RBC) [Mass/Vol] 33.6 g/dL 29.9 - 35.2 g/dL [facility] MCV (RBC) [Entitic vol] 90.3 fL 81.0 - 99.0 fL [facility] MONOCYTES ABSOLUTE AUTO 0.9 High [facility] Monocytes/100 WBC (Bld) 5.7 % 1.7 - 12.0 % [facility] NEUTROPHILS ABSOLUTE AUTO 12.1 High [facility] Neutrophils/100 WBC (Bld) 77.9 % High 43.0 - 75.0 % [facility] Platelet mean volume (Bld) [Entitic vol] 10.9 fL 9.5 - 13.5 fL [facility] EO # 0 [facility] PLT 187 [facility] RBC 3.52 Low [facility] WBC 15.5 High [facility] RECURRENT VAGINITIS (HTRX)on 07-11-2024 ATOPOBIUM VAGINAE 20.066 Abnormal [facility] ATOPOBIUM VAGINAE Detected Abnormal [facility] BVAB 2,3 (BACTERIAL VAGINOSIS ASSOCIATED BACTERIA 2, 3); MOBILUNCUS SPP 0 [facility] BVAB 2,3 (BACTERIAL VAGINOSIS ASSOCIATED BACTERIA 2, 3); MOBILUNCUS SPP Not detected [facility] AGATA ALBICANS, PARAPSILOSIS, TROPICALIS 0 [facility] AGATA ALBICANS, PARAPSILOSIS, TROPICALIS Not detected [facility] AGATA GLABRATA 0 [facility]th[facility] AGATA GLABRATA Not detected [facility] AGATA KRUSEI 0 [facility] Healt hcare AGATA KRUSEI Not detected [facility] CHLAMYDIA TRACHOMATIS 0 [facility] CHLAMYDIA TRACHOMATIS Not detected [facility] GARDNERELLA VAGINALIS 0 [facility] GARDNERELLA VAGINALIS Not detected [facility] Interpretation and review of laboratory results Abnormal [facility] MEGASPHAERA (TYPES 1, 2) 0 [facility] MEGASPHAERA (TYPES 1, 2) Not detected [facility] MYCOPLASMA GENITALIUM 0 [facility] MYCOPLASMA GENITALIUM Not detected [facility] NEISSERIA GONORRHOEAE 0 [facility] NEISSERIA GONORRHOEAE Not detected [facility] TRICHOMONAS VAGINALIS 0 [facility] TRICHOMONAS VAGINALIS Not detected [facility]inal[facility] macro (dipstick) panel (U)on 07-03-2024 Bilirubin, UA Negative Negative - 4(70) +++ mg/dL [facility] Blood, UA Negative Negative - 50 Bib/mcL [facility] Clarity, UA Clear [facility] re Color, UA Yellow [facility] Glucose, UA Negative Negative - 1999(110) ++++ mg/dL [facility] Interpretation and review of laboratory results Abnormal [facility] Ketones, UA Negative Negative - 160(16) ++++ mg/dL [facility] Leukocytes, UA Positive Negative - 500+++ Alvaro/mcL [facility] Comment on above: small Nitrite, UA Negative Negative - Positive [facility] pH, UA 7 5 - 9 [facility] Protein, UA Negative Negative - 1999(20) ++++ mg/dL [facility] Spec Grav, UA 1.02 1 - 1.03 [facility] Urobilinogen, UA 0.2 0.2 - 12 mg/dL [facility] macro (dipstick) panel (U)on 06-05-2024 Bilirubin, UA Negative Negative - 4(70) +++ mg/dL [facility] Blood, UA Negative Negative - 50 Bib/mcL [facility] Clarity, UA Clear [facility] re Color, UA Yellow [facility] Glucose, UA Negative Negative - 1999(110) ++++ mg/dL [facility] Interpretation and review of laboratory results Abnormal [facility] Ketones, UA Negative Negative - 160(16) ++++ mg/dL [facility] Leukocytes, UA Trace Negative - 500+++ Alvaro/mcL [facility] Nitrite, UA Negative Negative - Positive [facility] pH, UA 7 5 - 9 [facility] Protein, UA Negative Negative - 1999(20) ++++ mg/dL [facility] Spec Grav, UA 1.015 1 - 1.03 [facility] care Urobilinogen, UA 0.2 0.2 - 12 mg/dL [facility] Urinalysis macro (dipstick) panel (U)on 05-22-2024 Bilirubin, UA Negative Negative - 4(70) +++ mg/dL [facility] Blood, UA Negative Negative - 50 Bib/mcL [facility] Clarity, UA Clear [facility] re Color, UA Yellow [facility] Glucose, UA Negative Negative - 1999(110) ++++ mg/dL [facility] Interpretation and review of laboratory results Abnormal [facility] Ketones, UA Negative Negative - 160(16) ++++ mg/dL [facility] Leukocytes, UA Positive Negative - 500+++ Alvaro/mcL [facility] Comment on above: small Nitrite, UA Negative Negative - Positive [facility] pH, UA 7 5 - 9 [facility] Protein, UA Negative Negative - 1999(20) ++++ mg/dL [facility] Spec Grav, UA 1.015 1 - 1.03 [facility] care Urobilinogen, UA 0.2 0.2 - 12 mg/dL [facility] Urinalysis macro (dipstick) panel (U)on 05-08-2024 Bilirubin, UA Negative Negative - 4(70) +++ mg/dL [facility] Blood, UA Negative Negative - 50 Bib/mcL [facility] Clarity, UA Clear [facility] Color, UA Yellow [facility] Glucose, UA Negative Negative - 1999(110) ++++ mg/dL [facility] Interpretation and review of laboratory results Abnormal [facility] Ketones, UA Negative Negative - 160(16) ++++ mg/dL [facility] Leukocytes, UA Positive Negative - 500+++ Alvaro/mcL [facility] Comment on above: small Nitrite, UA Negative Negative - Positive [facility] pH, UA 7.0 5 - 9 [facility] e Protein, UA Negative Negative - 2000(20) ++++ mg/dL [facility] Spec Grav, UA 1.020 1 - 1.03 [facility] Urobilinogen, UA 0.2 0.2 - 12 mg/dL [facility] GLUCOSE TOLERANCE 3 HOURon 1 GLUCOSE TOLERANCE 3 HOUR High mg/dL [facility] Comment on above: GLU FAST 97H (<95) C ol: 05/01/24 0722 GLU 1HR 173 (<180) Col: 05/01/24 0823 GLU 2HR 162H (<155) Col: 05/01/24 0924 GLU 3HR 114 (<140) Col: 05/01/24 1022 Interpretation and review of laboratory results Abnormal [facility] e ALL CBC WITH AUTO DIFFon BASOPHILS ABSOLUTE AUTO 0.0 [facility] Basophils/100 WBC (Bld) 0.2 % 0.2 - 2.0 % [facility] Eosinophils/100 WBC (Bld) 0.7 % Low 0.9 - 7.0 % [facility] Erythrocyte distribution width (RBC) [Ratio] 12.6 % 11.0 - 15.0 % [facility] Hematocrit (Bld) [Volume fraction] 38.2 % 36.0 - 48.0 % [facility] e Hemoglobin (Bld) [Mass/Vol] 13.1 g/dL 12.0 - 16.0 g/dL [facility] IMMATURE GRANULOCYTES ABS AUTO 0.12 High [facility] Immature granulocytes/100 WBC (Bld) 1.1 % High 0.0 - 0.5 % [facility] Interpretation and review of laboratory results Abnormal [facility] LYMPHOCYTES ABSOLUTE AUTO 2.1 [facility] Lymphocytes/100 WBC (Bld) 19.6 % Low 20.5 - 60.0 % [facility] MCH (RBC) [Entitic mass] 31.8 pg 26.7 - 34.0 pg [facility] MCHC (RBC) [Mass/Vol] 34.3 g/dL 29.9 - 35.2 g/dL [facility] MCV (RBC) [Entitic vol] 92.7 fL 81.0 - 99.0 fL [facility] MONOCYTES ABSOLUTE AUTO 0.7 [facility] Monocytes/100 WBC (Bld) 6.3 % 1.7 - 12.0 % [facility] NEUTROPHILS ABSOLUTE AUTO 7.9 High [facility] Neutrophils/100 WBC (Bld) 72.1 % 43.0 - 75.0 % [facility] Platelet mean volume (Bld) [Entitic vol] 10.2 fL 9.5 - 13.5 fL [facility] # [facility].1 [facility] TB PLT 254 [facility] RBC 4.12 Low [facility] TB WBC 10.9 [facility] Urinalysis macro (dipstick) panel (U)on 04-17-2024 Bilirubin, UA Negative Negative - 4(70) +++ mg/dL [facility] Blood, UA Negative Negative - 50 Bib/mcL [facility] Clarity, UA Clear [facility] re Color, UA Yellow [facility] e Glucose, UA Negative Negative - 1999(110) ++++ mg/dL [facility] Interpretation and review of laboratory results Abnormal [facility] Ketones, UA Negative Negative - 160(16) ++++ mg/dL [facility] Leukocytes, UA Trace Negative - 500+++ Alvaro/mcL [facility] Nitrite, UA Negative Negative - Positive [facility] pH, UA 7.0 5 - 9 [facility] e Protein, UA Negative Negative - 1999(20) ++++ mg/dL [facility] Spec Grav, UA 1.025 1 - 1.03 [facility] Urobilinogen, UA 1.0 0.2 - 12 mg/dL [facility] Glucose 1h post 50g loadon 0 02-14-2024 Glucose, 1 hr PP 50GM dose 83 [facility] AFP Single Marker Scrn, Mate rnal, Serumon 01-17-2024 Ms Alpha-Fetoprotein Negative [facility] CBC without diffon Hematocrit (Bld) [Volume fraction] 39.1 % [facility] Hemoglobin (Bld) [Mass/Vol] 14 g/dL [facility] Platelets (Bld) [#/Vol] 259 10*3/uL [facility] Free Cell DNAon 2023 Free Cell Dna SEE SCANNED REPORT [facility] HIV 1&2 AB/AG Screen (P24 AG )on 01-17-2024 HIV 1&2 AB/AG Non-Reactive [facility] Hemoglobin A1con 01-17-2024 HbA1c (Bld) [Mass fraction] 5.0 % 4.0 - 6.0 % [facility] Hepatitis B surface antigeno n 01-17-2024 Hepatitis B Surface Antigen Negative [facility] Hepatitis C(HCV) Ab w/ Refle x to PCRon 01-17-2024 HCV Ab Ql (S) Non-Reactive [facility] No Panel Informationon 01-16 [facility] Rubella IGG immune statuson 01-17-2024 Rubella immune IgG 1.18 [facility] Syphilis Total(Unknown Syphi lis Status)on 01-17-2024 Syphilis Non-Reactive [facility] Type and screenon 01-17-2024 Abo/Rh(D) Positive [facility] Cytology Cervical or vaginal smear or scraping studyOrdered By: Norma Vega on 08-22-2023 [facility] PAP ACOG PANEL 2: 21 to 29on 08-25-2022 . . Normal [facility] Comment on above: Performed By: #### [id number] #### [facility] [address] [place] [address] Dr. Matias Shukla Age Gdln ACOG Testing - Normal [facility] Comment on above: Performed By: #### [id number] #### [facility] [address] [place] [address] Dr. Matias Shukla DIAGNOSIS: Comment Normal [facility] Comment on above: Result Comment: NEGA TIVE FOR INTRAEPITHELIAL LESION OR MALIGNANCY. Performed By: #### 4 [id number] #### [facility] [address] [place] [address] Dr. Matias Shukla Methodology: Comment Normal [facility] Comment on above: Result Comment: This liquid based ThinPrep(R) pap test was screened with the use of an image guided system. Performed By: #### 4 [id number] #### [facility] [address] [place] [address] Dr. Matias Shukla Note: Comment Normal [facility] Comment on above: Result Comment: The Pap smear is a screening test designed to aid in the detection of premalignant and malignant conditions of the uterine cervix. It is not a diagnostic procedure and should not be used as the sole means of detecting cervical cancer. Both false-positive and false-negative reports do occur. . Performed By: #### 4 [id number] #### [facility] [address] [place] [address] Dr. Matias Shukla Performed by: Comment Normal [facility] Comment on above: Result Comment: Monika Prieto, Raw Sampler (ASCP) Performed By: #### 4 [id number] #### [facility] [address] [place] [address] Dr. Matias Shukla Reflex Criteria: Comment Normal [facility] Comment on above: Result Comment: The HPV DNA reflex criteria were not met with this specimen result therefore, no HPV testing was performed. . Performed By: #### 4 [id number] #### [facility] [address] [place] [address] Dr. Matias Shukla Specimen adequacy: Comment Normal [facility] Comment on above: Result Comment: Sati sfactory for evaluation. Endocervical and/or squamous metaplastic cells (endocervical component) are present. Performed By: #### 4 [id number] #### [facility] [address] [place] [address] Dr. Matias Shukla MUMPS IGG BLDon 02-07-2022 MUMPS IGG 1.14 Normal [facility] Comment on above: Result Comment: RAN IN TRIPLICATE NORMAL RANGES: < OR = 0.9O NEGATIVE ; NO DETECTABLE IgG ANTIBODY TO MUMPS 0.91 - 1.09 EQUIVOCAL; REPEAT TESTING SUGGESTED > OR = 1.10 POSITIVE ; INDICATES PRESENCE OF DETECTABLE IgG ANTIBODY TO MUMPS Performed By: #### 1 0055, [id number], [id number], [id number] #### [facility] [address] RUBELLAon 02-07-2022 RUBELLA 1.73 Normal [facility] Comment on above: Result Comment: NORM AL RANGES: < OR = 0.9O NEGATIVE ; NO DETECTABLE IgG ANTIBODY TO RUBELLA 0.91 - 1.09 EQUIVOCAL; REPEAT TESTING SUGGESTED > OR = 1.10 POSITIVE ; INDICATES PRESENCE OF DETECTABLE IgG ANTIBODY TO RUBELLA VIRUS Performed By: #### 1 0055, [id number], [id number], [id number] #### [facility] [address] RUBEOLA MEASLES IGGon 2021 RUBEO IGG 4.62 Normal [facility] Comment on above: Result Comment: NORM AL RANGES: < OR = 0.9O NEGATIVE ; NO DETECTABLE IgG ANTIBODY TO RUBEOLA 0.91 - 1.09 EQUIVOCAL; REPEAT TESTING SUGGESTED > OR = 1.10 POSITIVE ; INDICATES PRESENCE OF DETECTABLE IgG ANTIBODY TO RUBEOLA Performed By: #### 1 0055, [id number], [id number], 92750 #### [facility] [address] TB QUANTIFERON PLUSon 2021 MITOGEN MINUS NIL 8.15 IU/mL Normal [facility] Comment on above: Performed By: #### 3 [id number] #### [facility] [address] NIL 0.03 IU/mL Normal [facility] Comment on above: Performed By: #### 3 1592 #### [facility] [address] TB QUANTIFERON Negative Normal NEGATIVE [facility] Comment on above: Result Comment: Eric tiferon TB Gold Interpretation (IU/mL): NEGATIVE: M. tuberculosis infection not likely. Nil: <=8.0 TB1 Antigen minus Nil ([id number]-OHC): <0.35 OR >=0.35; and <25% of Nil value. TB2 Antigen minus Nil (IN6LW-PSY): <0.35 OR >=0.35; and <25% of Nil [...] (https://www.cdc.gov/tb/publications/guidlines/default.htm Performed By: #### 3 1592 #### [facility] [address] TB1 AG 0.03 IU/mL Normal [facility] Comment on above: Performed By: #### 3 1592 #### [facility] [address] TB1 AG MINUS NIL 0.00 IU/mL Normal [facility] Comment on above: Performed By: #### 3 1592 #### [facility] [address] TB2 AG 0.04 IU/mL Normal [facility] Comment on above: Performed By: #### 3 1592 #### [facility] [address] TB2 AG MINUS NIL 0.01 IU/mL Normal [facility] Comment on above: Performed By: #### 3 1592 #### [facility] [address] VARICELLA ZOSTER IGGon 02-07 VARICELLA IGG 2.[address] [facility] Comment on above: Result Comment: NORM AL RANGES: < OR = 0.9O NEGATIVE ; NO DETECTABLE IgG ANTIBODY TO VARICELLA-ZOSTER VIRUS 0.91 - 1.09 EQUIVOCAL; REPEAT TESTING SUGGESTED > OR = 1.10 POSITIVE ; INDICATES PRESENCE OF DETECTABLE IgG ANTIBODY TO VARICELLA-ZOSTER VIRUS Performed By: #### 1 0055, [id number], [id number], 47907 #### [facility] [address] BELLA [address]IG[address]INS[address] HPV DNA High Riskon 08-19-19 HPV Interp [facility] Comment on above: Result Comment: This [...] purposes. Performed By: #### H PVH #### [facility] [address] [place] [address] Plant Specialist: Rickey Watson MD HPV Type 16 Not detected [facility] Comment on above: Performed By: #### H PVH #### [address] [address] Plant Specialist: Rickey Watson MD HPV Type 18 Not detected [facility] Comment on above: Performed By: #### H PVH #### [facility] [address] [place] [address] Plant Specialist: Rickey Watson MD Other High Risk HPV Not detected [facility] Comment on above: Performed By: #### H PVH #### [facility] [address] [place] [address] Plant Specialist: Rickey Watson MD HPV DNA High Riskon 08-18-19 22 Source .GENITAL - NOT SPECIFIED [facility] Comment on above: Performed By: #### H PVH #### [address] [address] Plant Specialist: Rickey Watson MD HPV Sample .THIN PREP Normal [facility] Comment on above: Performed By: #### H PVH #### [address] [address] Plant Specialist: Rickey Watson MD Chlamydia/GC DNA, TPon 08-10 Chlamydia Probe, TP Negative Normal NEG [facility] Comment on above: Result Comment: CHLA [...] target. Performed By: #### C YTCGP #### [address] [address] Plant Specialist: Rickey Watson MD Gonorrhea Probe, TP Negative Normal NEG [facility] Comment on above: Result Comment: NEIS [...] target. Performed By: #### C YTCGP #### [address] [address] Plant Specialist: Rickey Watson MD Cytologyon 08-08-2021 Cytology (NOTE) INTERPRETATION Cervical material, (ThinPrep vial, Imaging-assisted review): Specimen Adequacy: Satisfactory for evaluation. - Endocervical/transfor mation zone component present. - Scant cellularity. Descriptive Diagnosis: Atypical squamous cells of undetermined significance (ASC-US). Raw Sampler: AMANDA Michaels M.D. Electronically Signed Out rd08/18/2021 Amendments Originally Reported As: Procedure/Addendum Source: Clinical History LMP: Patient Name: Med Rec: Path Number: Fax: Normal [facility] Comment on above: Performed By: #### P PPVP #### [facility] [address] [place], [place] [id number] Plant Specialist: Rickey Watson MD QuantiFERON TBon 12-24-2020 Quanti Binu minus NIL 8.10 IU/mL Normal [facility] Comment on above: Performed By: #### R UBI, LUIZ, MARITZA, VZI #### [facility] [address] [place], [place] [id number] Plant Specialist: Rickey Watson MD #### AQF #### [facility] [address] [place] [address] Plant Specialist: Mark Grossman MD Quanti TB Gold Plus Negative Normal Negative [facility] Comment on above: Result Comment: (NOT [...] Mycobacterium tuberculosis Infection --- [place], 2010 (http://www.cdc.gov/mmwr/preview/mmwrhtml/od5029b7.htm), for more information concerning test performance in low-prevalence populations and use in occupational screening. Performed By: #### R UBI, LUIZ, MARITZA, VZI #### [address] [address] Plant Specialist: Rickey Watson MD #### AQF #### [facility] [employer] [address] [place] [address] Plant Specialist: Mark Grossman MD Quanti TB1 minus NIL 0.00 IU/mL Normal 0.00-0.34 [facility] Comment on above: Performed By: #### R UBI, LUIZ, MARITZA, VZI #### [place] [address] Plant Specialist: Rickey Watson MD #### AQF #### [facility] [employer] [address] [place] [address] [phone] Plant Specialist: Mark Grossman MD Quanti TB2 minus NIL 0.01 IU/mL Normal 0.00-0.34 [facility] Comment on above: Performed By: #### R UBI, LUIZ, MARITZA, VZI #### [place] [address] Plant Specialist: Rickey Watson MD #### AQF #### [facility] [employer] [address] [place] [address] [id number] Plant Specialist: Mark Grossman MD QuantiFERON NIL 0.01 IU/mL Normal [facility] Comment on above: Result Comment: (NOT E) Performed By: [employer] [address] [place] [id number] Scanning Supervisor: Carolyn Wei MD Performed By: #### R UBI, LUIZ, MARITZA, VZI #### [place] [id number] Plant Specialist: Rickey Watson MD #### AQF #### [facility] [address], [place] [id number] Plant Specialist: Mark Grossman MD Measles (Rubeola) Imon 12-22 Measles (Rubeola) Im 3.68 Normal >1.09 [facility] Comment on above: Result Comment: Interpretation: IMMUNE Reference Range: <0.91 Not Immune 0.91-1.09 Equivocal >1.09 Immune Performed By: #### R UBI, LUIZ, MARITZA, VZI #### [address] [id number] Plant Specialist: Rickey Watson MD #### AQF #### [address] [id number] Plant Specialist: Mark Grossman MD Mumps,Immun,Abon 12-22-2020 Mumps,Immun,Ab 1.16 Normal >1.09 [facility] Comment on above: Result Comment: Interpretation: IMMUNE Reference Range: <0.91 Not Immune 0.91-1.09 Equivocal >1.09 Immune Performed By: #### R UBI, LUIZ, MARITZA, VZI #### [address] [address] Plant Specialist: Rickey Watson MD #### AQF #### [address] [phone] Plant Specialist: Mark Grossman MD VZ Immunityon 12-22-2020 VZ Immunity 2.24 Normal >1.09 [facility] Comment on above: Result Comment: Interpretation: IMMUNE Reference Range: <0.91 Not Immune 0.91-1.09 Equivocal >1.09 Immune Performed By: #### R UBI, LUIZ, MARITZA, VZI #### [address] [id number] Plant Specialist: Rickey Watson MD #### AQF #### [facility] [address] [place] [address] Plant Specialist: Mark Grossman MD Rubella Ab, IgGon 12-21-2020 Rubella Ab, IgG 16.2 IU/mL Normal [facility] Comment on above: Result Comment: REFERENCE RANGE: <5.0 NON-REACTIVE (non-immune) 5.0 TO 9.9 EQUIVOCAL >=10.0 REACTIVE (immune) Performed By: #### R UBI, LUIZ, MARITZA, VZI #### [facility] [address] [place] [address] Plant Specialist: Rickey Watson MD #### AQF #### [facility] [employer] [address] [place] [address] Plant Specialist: Mark Grossman MD Rubella antibody, IgGOrdered By: Jimmy Meehan on 12-21-2020 Rubella virus IgG Ql (S) 16.2 IU/mL [employer] Phone: Comment on above: REFERENCE RANGE: <5.0 NON-REACTIVE (non-immune) 5.0 TO 9.9 EQUIVOCAL >=10.0 REACTIVE (immune) [employer] Phone: Lab - Toxicology Resultson 0 03-11-2020 Lab - Toxicology Results [id number] Normal [facility] QuantiFERON TB Gold (In Tube ) LCon 03-08-2020 QuantiFERON Criteria LC Comment [facility] Comment on above: Result Comment: The QuantiFERON-TB Gold Plus result is determined by subtracting the Nil value from either TB antigen (Ag) tube. The mitogen tube serves as a control for the test. Performed By: #### 4 [id number] #### [facility] (DEFAULT) [address] [place] [address] QuantiFERON M. tuberculosis1 Ag Value LC 0.09 IU/mL [facility] Comment on above: Performed By: #### 4 [id number] #### [facility] (DEFAULT) [address] [place] [address] QuantiFERON M. tuberculosis2 Ag Value LC 0.08 IU/mL [facility] Comment on above: Performed By: #### 4 [id number], [id number] #### [facility] (DEFAULT) [address] [place] [address] QuantiFERON Mitogen Value LC >10.00 [facility] Comment on above: Result Comment: Perf ormed At: [place] [id number] [place], [place] [id number] Kat Arevalo PhD Ph:[phone] Performed By: #### 4 [id number], [id number] #### [facility] (DEFAULT) [address] [place] [address] QuantiFERON Nil Value LC 0.01 IU/mL [facility] Comment on above: Performed By: #### 4 [id number], [id number] #### [facility] (DEFAULT) [address] [place] [address] QuantiFERON-TB Gold Plus LCo n 03-08-2020 QuantiFERON-TB Gold Plus LC Negative Negative [facility] Comment on above: Result Comment: Perf ormed At: [facility] [id number] Kat Arevalo PhD Ph:[phone] Performed By: #### 4 [id number], [id number] #### [facility] (DEFAULT) [address] [place] [address] QuantiFERON Incubation LC Incubation performed. [facility] Comment on above: Result Comment: Perf ormed At: [place] [id number] [place], [place] [id number] Kat Arevalo PhD Ph:[phone] Performed By: #### 4 [id number], [id number] #### [facility] (DEFAULT) [address] [place] [address] HBSab Qnt LCon 03-05-2020 Hep B Surf Ab Quant LC 145.6 mIU/mL Immunity>9.9 [facility] Comment on above: Result Comment: Stat us of Immunity Anti-HBs Level Inconsistent with Immunity 0.0 - 9.9 Consistent with Immunity >9.9 Performed At: [facility] [address] [place] [id number] Kat Arevalo PhD Ph:[phone] Performed By: #### 1 [id number], [id number] #### [facility] (DEFAULT) [address] [place] [address] Measles/Mumps/Rubella Immuni ty LCon 03-05-2020 Mumps Abs, IgG LC 69.5 AU/mL Immune >10.9 [facility] Comment on above: Result Comment: Nega tive <9.0 Equivocal 9.0 - 10.9 Positive >10.9 A positive result generally indicates past exposure to Mumps virus or previous vaccination. Performed At: [place] [id number] [place], [place] [id number] Kat Arevalo PhD Ph:[phone] Performed By: #### 1 [id number], [id number] #### [facility] (DEFAULT) [address] [place] [address] Rubella Antibodies, IgG LC 1.75 index Immune >0.99 [facility] Comment on above: Result Comment: Non- immune <0.90 Equivocal 0.90 - 0.99 Immune >0.99 Performed By: #### 1 [id number], [id number] #### [facility] (DEFAULT) [address] [place] [address] Rubeola Ab, IgG, EIA LC >300.0 Immune >16.4 [facility] Comment on above: Result Comment: Nega tive <13.5 Equivocal 13.5 - 16.4 Positive >16.4 Presence of antibodies to Rubeola is presumptive evidence of immunity except when acute infection is suspected. Performed By: #### 1 [id number], [id number] #### [facility] (DEFAULT) [address] [place] [address] Nicotine Metabolite, Urine L Con 03-05-2020 Cotinine LC Negative Esedir=593 [facility] Comment on above: Result Comment: Perf ormed At: [facility] [place] [address] [place], [place] [id number] Jose Schwartz PhD Ph:[phone] Performed By: #### 1 [id number] #### [facility] (DEFAULT) [address] [place] [address] Vital Signs Date Time Vital Sign Value Performing Clinician Susy ramon 08-26-2024 13:33-0500 Body mass index (BMI) [Ratio] 35.85 kg/m2 Suri LORENZO Work Phone: [facility] 08-26-2024 13:33-0500 Body weight 88.91 kg Suri LORENZO Work Phone: [facility] 08-26-2024 13:33-0500 Diastolic blood pressure 74 mm[Hg] Suri LORENZO Work Phone: [facility] 08-26-2024 13:33-0500 Systolic blood pressure 128 mm[Hg] Suri LORENZO Work Phone: [facility] 07-10-2024 10:58-0500 Body mass index (BMI) [Ratio] 40.93 kg/m2 Jasiel Deshaun DO Work Phone: [facility] 07-10-2024 10:58-0500 Body weight 101.52 kg Jasiel Deshaun DO Work Phone: [facility] 07-10-2024 10:58-0500 Diastolic blood pressure 78 mm[Hg] Jasiel Deshaun DO Work Phone: [facility] 07-10-2024 10:58-0500 Systolic blood pressure 114 mm[Hg] Jasiel Deshaun DO Work Phone: [facility] 07-03-2024 11:01-0500 Body mass index (BMI) [Ratio] 41.12 kg/m2 Jasiel Deshaun DO Work Phone: [facility] 07-03-2024 11:01-0500 Body weight 101.97 kg Jasiel Deshaun DO Work Phone: [facility] 07-03-2024 11:01-0500 Diastolic blood pressure 70 mm[Hg] Jasiel Deshaun DO Work Phone: [facility] 07-03-2024 11:01-0500 Systolic blood pressure 120 mm[Hg] Jasiel Deshaun DO Work Phone: [facility] 06-19-2024 10:40-0500 Body mass index (BMI) [Ratio] 40.02 kg/m2 Suri Belton PA Work Phone: [facility] 06-19-2024 10:40-0500 Body weight 99.25 kg Suri Parker PA Work Phone: [facility] 06-19-2024 10:40-0500 Diastolic blood pressure 74 mm[Hg] Suri Belton PA Work Phone: [facility] 06-19-2024 10:40-0500 Systolic blood pressure 110 mm[Hg] Suri Parker PA Work Phone: [facility] 06-05-2024 11:46-0500 Body mass index (BMI) [Ratio] 39.69 kg/m2 Suri Parker PA Work Phone: [facility] 06-05-2024 11:46-0500 Body weight 98.43 kg Suri Parker PA Work Phone: [facility] 06-05-2024 11:46-0500 Diastolic blood pressure 80 mm[Hg] Suri Belton PA Work Phone: [facility] 06-05-2024 11:46-0500 Systolic blood pressure 114 mm[Hg] Suri Parker PA Work Phone: [facility] 05-22-2024 09:57-0400 Body mass index (BMI) [Ratio] 39.1 kg/m2 Jasiel Deshaun DO Work Phone: [facility] 05-22-2024 09:57-0400 Body weight 96.98 kg Jasiel Deshaun DO Work Phone: [facility] 05-22-2024 09:57-0400 Diastolic blood pressure 72 mm[Hg] Jasiel Deshaun DO Work Phone: [facility] 05-22-2024 09:57-0400 Systolic blood pressure 110 mm[Hg] Jasiel Deshaun DO Work Phone: [facility] 05-08-2024 09:31-0400 Body mass index (BMI) [Ratio] 38.59 kg/m2 Suri LORENZO Work Phone: [facility] 05-08-2024 09:31-0400 Body weight 95.71 kg Suri LORENZO Work Phone: [facility] 05-08-2024 09:31-0400 Diastolic blood pressure 78 mm[Hg] Suri LORENZO Work Phone: [facility] 05-08-2024 09:31-0400 Systolic blood pressure 120 mm[Hg] Suri LORENZO Work Phone: [facility] 04-17-2024 09:04-0400 Body mass index (BMI) [Ratio] 38.04 kg/m2 Jasiel Deshaun DO Work Phone: [facility] 04-17-2024 09:04-0400 Body weight 94.35 kg Jasiel Deshaun DO Work Phone: [facility] 04-17-2024 09:04-0400 Diastolic blood pressure 68 mm[Hg] Jasiel Deshaun DO Work Phone: [facility] 04-17-2024 09:04-0400 Systolic blood pressure 112 mm[Hg] Jasiel Deshaun DO Work Phone: [facility] Healthcare Encounters Encounter Date Encounter Type Care Provider Facility Start: 08-26-2024 End: 08-26-2024 care visit Suri OLRENZO Work Phone: [facility] Comment on above: 6 weeks f ollow-up Start: 08-26-2024 End: 08-26-2024 ambulatory SURI CANALES Not Available Start: 07-15-2024 End: 07-15-2024 Clinisync Result Encounter [...] flow sheet Jasiel Deshaun DO Work Phone: [facility] Comment on above: 30 weeks gestation o f ; Third trimester ; Gestational diabetes mellitus (GDM), antepartum, gestational diabetes method of control unspecified Start: 05-22-2024 End: 05-22-2024 ambulatory JASIEL DESHAUN Not Available Start: 05-08-2024 End: 05-08-2024 Bamboo flowsheet Suri LORENZO Work Phone: [facility] Start: 05-08-2024 End: 05-08-2024 Bamboo flowsheet Suri LORENZO Work Phone: [facility] Start: 05-08-2024 End: 05-08-2024 flow sheet Suri LORENZO Work Phone: [facility] Comment on above: 28 weeks gestation o f ; Third trimester ; size inconsistent with dates Start: 05-08-2024 End: 05-08-2024 ambulatory SURI CANALES Not Available Start: 05-01-2024 End: 05-01-2024 Clinisync Result Encounter Jasiel Deshaun DO Work Phone: [facility] External Department Unsolicited Start: 05-01-2024 End: 05-01-2024 [...] 04-10-2024 End: 04-10-2024 ambulatory JASIEL R DESHAUN [facility] Comment on above: Encounter for follow -up ultrasound of anatomy (Primary Dx) Start: 03-27-2024 End: 03-27-2024 Chart abstracting Angel Nieves MD Work Phone: [facility] Start: 03-13-2024 End: 03-13-2024 ambulatory SURI CANALES Not Available Start: 02-13-2024 End: 02-13-2024 ambulatory JASIEL DESHAUN Not Available Start: 01-17-2024 End: 01-17-2024 ambulatory SURI CANALES Not Available Start: 08-21-2022 End: 08-21-[address] DOCTOR MERCADO Facility: Start: 08-08-2021 End: 08-09-2021 ambulatory SHANTELLE LEMUEL DEAN [facility] Start: 12-21-2020 End: 12-22-2020 ambulatory JIMMY MEEHAN [facility] Start: 12-21-2020 End: 12-21-2020 Subsequent hospital [...] micrscp Jasiel Deshaun DO Work Phone: Start: 02-14-2024 GLU 1H POST 50G LOAD No t In System Ref Prov Start: 06-20-2024 Antibody screen Angel Nieves MD Work Phone: Start: 01-17-2024 FREE CELL DNA (NON-[facility]) Not In System Ref Prov Start: 01-17-2024 Hemoglobin glycosyla shari a1c Jasiel Kenny Deshaun DO Work Phone: Start: 01-17-2024 Hepatitis c antibody No t In System Ref Prov Start: 01-17-2024 HIV 1&2 AB/AG SCREEN (P24 AG) Not In System Ref Prov Start: 01-17-2024 Iaad ia hepatitis b surface antigen Not In System Ref Prov Start: 01-17-2024 TYPE AND SCREEN Not In System Ref Prov Start: 08-22-2023 Cytp cerv/vag auto t hin layer prep mnl screen Jasiel Meade DO Work Phone: Start: 08-08-2021 Microscopic observat ion [Identifier] in Cervix by Cyto stain Angel Nieves MD Work Phone: Start: 12-21-2020 Antibody rubella Ebony Meehan MD Work Phone: Plan of Treatment Date Care Activity Detail Author Start: 02-26-2027 DTaP,Tdap and Td Vaccines (7 - Td or Tdap) DTaP,Tdap and Td Vaccines (7 - Td or Tdap) [facility] Start: 02-26-2027 DTaP/Tdap/Td vaccine (7 - Td) DTaP/Tdap/Td vaccine (7 - Td) [place], [place] Start: 10-23-2024 End: 10-23-2024 Patient encounter procedure 10/23/2024 10:20 AM EDT Office Visit [facility] [address] [place] [address] Jasiel Meade DO [address] [place], [place] [id number] [facility] Start: 09-17-2024 End: 09-17-2024 Patient encounter procedure 09/17/2024 1:40 PM EST Consult [facility] [address] [place] [address] Jasiel Meade, DO [address] [place] [address] [facility] Start: 08-25-2024 End: 08-25-2024 Patient encounter procedure 08/25/2024 9:00 AM EST Office Visit [facility] [address] [facility] [place] [id number] Jasiel Meade, DO [address] [place] [address] [facility] Start: 08-08-2024 Screening for malign ant neoplasm of cervix Pap Smear [facility] Start: 07-10-2024 End: 07-10-2024 Patient encounter procedure 07/10/2024 10:30 AM EST Routine [facility] [address] [place], [place] [address] [place] [address] Jasiel Meade, DO [address] [place] [address] [facility] Start: 07-03-2024 End: 07-03-2025 Strep B DNA probe, amplification Strep B DNA probe, amplification Lab Routine Third trimester Expected: 07/03/2024 (Approximate), Expires: 07/03/2025 [facility] Work Phone: Comment on above: Expected: 07/03/2024 (Approximate), Expires: 07/03/2025 Start: 07-03-2024 End: 07-03-2024 Patient encounter procedure 07/03/2024 10:40 AM EST Routine [facility] [address] [place] [phone] Jasiel Meade, DO [address] [place] [address] [facility] Start: 07-02-2024 End: 07-02-2024 Professional / ancillary services management 07/02/2024 2:00 PM EST Ancillary Procedure [facility] [address] [place] [id number] [facility] Start: 06-19-2024 End: 06-19-2024 [...] EDT Ancillary Procedure [facility] [address] [place] [address] [facility] Start: 05-15-2024 End: 05-15-2024 Patient encounter procedure 05/15/2024 11:00 AM EDT Appointment [facility] [place] [address] [facility] [address] [facility] [place] Start: 05-08-2024 End: 05-08-2025 US for US [...] AM EDT Routine [facility] [address] [facility] [place] [address] Jasiel Meade DO [address] [place] [address] Arrived [facility] Comment on above: Arrived Start: 04-10-2024 End: 04-10-2025 US MFM with or without consult US MFM with or without consult Imaging Routine Encounter For Follow-Up Ultrasound Of Anatomy Expected: 04/10/2024, Expires: 04/10/2025 [facility] Work Phone: Comment on above: Expected: 04/10/2024 , Expires: 04/10/2025 Start: 04-10-2024 End: 04-10-2024 Patient encounter procedure 04/10/2024 8:00 AM EDT Appointment [facility] [place] [address] [place] [address] [facility] [place] Start: 03-30-2024 COVID-19 Vaccine ( season) COVID-19 Vaccine ( season) [facility] Start: 03-30-2024 Influenza vaccination [facility] Start: 03-18-2023 Screening for malign ant neoplasm of cervix [facility] Start: 06-12-2021 Screening for malign ant neoplasm of cervix Cervical cancer screen [place], [place] Start: 03-30-2021 Influenza vaccination Flu vacc ine (Season Ended) [facility]: Start: 03-30-2020 Influenza vaccination Flu vaccine (# 1) [place], [place] Start: 06-12-2019 Screening for Chlamy flaco trachomatis Chlamydia screen [place], [place] Start: 11-09-2013 Adult BMI Screening Adult BMI Screen ing [facility] Start: 09-13-2011 Hepatitis A vaccine (2 of 2 - 2-dose series) Hepatitis A vaccine (2 of 2 - 2-dose series) [place], [place] Start: 2007 COVID-19 Vaccine (1) COVID-19 Vaccin e (1) [facility] Phone: Start: 2007 Depression Screening Depression Scre ening [facility] Start: 2007 Tobacco Screening Tobacco Screening [facility] Start: 1995 Hepatitis C screening Hepatitis C sc reen [facility] Phone: CHLAMYDIA TRACHOMATI S (GENITO/STI) CHLAMYDIA TRACHOMATIS (GENITO/STI) Lab Routine STD exposure Ordered: 07/10/2024 [facility] Comment on above: Ordered: 07/10/2024 End: 12-21-2020 Mumps Antibody, IgG Mumps Antibody, IgG Lab Routine Once for 1 Occurrences starting 12/21/2020 until 12/21/2020 [employer] Phone: Comment on above: Once for 1 Occurrenc es starting 12/21/2020 until 12/21/2020 Mumps Antibody, IgG Mumps Antibo dy, IgG Lab Routine 12/21/2020 4:27 PM EDT [employer] Phone: Neisseria gonorrhoea e DNA [Presence] in Unspecified specimen by DIONICIO with probe detection Neisseria gonorrhea DNA probe, direct Lab Routine STD exposure Ordered: 07/10/2024 [employer] Comment on above: Ordered: 07/10/2024 End: 12-21-2020 Quantiferon TB Gold Quantiferon TB Gold Microbiology Routine Once for 1 Occurrences starting 12/21/2020 until 12/21/2020 [employer] Phone: Comment on above: Once for 1 Occurrenc es starting 12/21/2020 until 12/21/2020 Quantiferon TB Gold Quantiferon TB Gold Microbiology Routine 12/21/2020 4:27 PM EDT [employer] Phone: End: 12-21-2020 Rubeola Antibody, IgG Rubeola Antibody, IgG Lab Routine Once for 1 Occurrences starting 12/21/2020 until 12/21/2020 [employer] Phone: Comment on above: Once for 1 Occurrenc es starting 12/21/2020 until 12/21/2020 Rubeola Antibody, IgG Rubeola An tibody, IgG Lab Routine 12/21/2020 4:27 PM EDT [employer] Phone: SURESWAB(R) ADVANCED VAGINITIS PLUS, TMA SURESWAB(R) ADVANCED VAGINITIS PLUS, TMA Pathology and Cytology Routine Vaginal discharge Ordered: 07/10/2024 [employer] Work Phone: Comment on above: Ordered: 07/10/2024 End: 12-21-2020 Varicella Zoster Antibody, IgG Varicella Zoster Antibody, IgG Lab Routine Once for 1 Occurrences starting 12/21/2020 until 12/21/2020 [employer] Phone: Comment on above: Once for 1 Occurrenc es starting 12/21/2020 until 12/21/2020 Varicella Zoster Antibody, IgG Varicella Zoster Antibody, IgG Lab Routine 12/21/2020 4:27 PM EDT [facility] Work Phone: Immunizations Immunization Date Immunization Notes Care Provider Durga mckeon 06-28-2021 influenza virus vacc ine, unspecified formulation Jasiel Meade [employer] Work Phone: [facility] 03-09-2020 tuberculin skin test ; purified protein derivative solution, intradermal [facility] [place] 04-28-2019 influenza, injectabl e, quadrivalent, preservative free [facility] 06-12-2018 influenza, injectabl e, quadrivalent, preservative free [facility] 05-01-2018 tuberculin skin test ; purified protein derivative solution, intradermal [facility] 09-12-2017 hepatitis B vaccine, adult dosage [facility] 04-13-2017 Human Papillomavirus 9-valent vaccine [facility] 04-10-2017 hepatitis B vaccine, adult dosage [facility] 03-07-2017 hepatitis B vaccine, adult dosage [facility] 03-07-2017 meningococcal polysaccharide (groups A, C, Y and W-135) diphtheria toxoid conjugate vaccine (MCV4P) [facility] 03-07-2017 tuberculin skin test ; purified protein derivative solution, intradermal [facility] 02-26-2017 tetanus toxoid, redu juve diphtheria toxoid, and acellular pertussis vaccine, adsorbed [facility] 02-26-2017 tuberculin skin test ; purified protein derivative solution, intradermal [facility] 08-13-2014 Human Papillomavirus 9-valent vaccine [facility] 04-01-2014 meningococcal polysaccharide (groups A, C, Y and W-135) diphtheria toxoid conjugate vaccine (MCV4P) [place], [place] 02-10-2014 Human Papillomavirus 9-valent vaccine [place] Payers Date Payer Category Payer Private Health Insurance [employer] [id number] 2022 Unknown [id number] 2022 Unknown [id number] 2021 Unknown [id number] 2016 Private Health Insurance [employer]FEMIAZEUS FIERRO [id number] 2016-Present [phone] [address] [place] [address] [id number] 1995 Unknown [id number] 2.16.840.1.308205.3.579.2. 175 1995 Unknown [id number] 2.16.840.1.583098.3.579.2. 593 1995 Unknown [id number] 2.16.840.1.517866.3.579.2. 1286 1995 Unknown [id number] 2.16.840.1.116809.3.579.2. 1259 1995 Unknown [id number] 2.16.840.1.923446.3.579.2. 9 1995 Unknown [id number] 2.16.840.1.014265.3.579.2. 1258 1995 Unknown [id number] 2.16.840.1.038871.3.579.2. 9 1995 Unknown [id number] 2.16.840.1.991046.3.579.2. 1258 1995 Unknown [id number] 2.16.840.1.345974.3.579.2. 1258 1995 Unknown [id number] 2.16.840.1.954419.3.579.2. 1258 1995 Unknown [id number] 2.16.840.1.545946.3.579.2. 1258 1995 Unknown [id number] 2.16.840.1.432832.3.579.2. 1258 1995 Unknown [id number] 2.16.840.1.489259.3.579.2. 1258 1995 Unknown [id number] 1959 Unknown [id number] Social History Date Type Detail Facility Start: 03-18-2020 End: 03-27-2024 Tobacco smoking status [facility] Never smoker [facility] Start: 03-18-2020 End: 03-27-2024 Tobacco use and exposure Never used [facility] Start: 02-05-2017 Alcohol Comment rarely [facility] Start: 1995 Sex Assigned At Not on file [facility] Start: 1995 Sex Assigned At Female [employer] Work Phone: Start: 03-27-2024 End: 04-17-2024 Alcoholic beverage intake Ex-drinker (finding) [facility] Start: 01-06-2019 End: 04-17-2024 Alcoholic beverage intake [facility] Start: 01-06-2019 End: 01-17-2024 Tobacco use panel [facility] Start: 11-04-2023 [facility] Start: 02-20-2023 Gender identity Identifies as female gender (finding) [facility] Start: 02-20-2023 Sexual orientation Heterosexual (finding) [facility] Childcare Unknown [facility] Medical Equipment Procedure Code Equipment Code Equipment Origin al Text Equipment Identifier Dates [id number] Start: 05-26-2024 End: 06-25-2024 Clinical Notes 04-17-2024 to 08-26-2024 BJ Garcia - 08/26/2024 1:30 PM Radha Shipley, HARDEEP - 07/10/2024 10:30 AM Kellen العراقي, CUPOLA [employer] - 07/03/2024 10:40 AM BJ Clifton - 06/19/2024 10:20 AM EST Note Date & Type Note Facility 08-26-2024 History of Presen t illness Narrative Reason for Appointment: Patient ID: Holli Jenkins is a 28 y.o. female who presents for Care (Pt present today for a 6 week post visit. Pt delivered on 07/14/2024 vaginally.) Patient presents today for Post Follow Up appointment. MEDICATIONS Current Outpatient Medications Medication Instructions B-D ULTRAFINE III SHORT PEN 31G X 8 MM misc USE TO INJECT SUBCUTANEOUSLY FOUR TIMES DAILY WITH insulin pen magnesium oxide (MAG-OX) 400 mg, Daily RT Semglee, yfgn, 100 UNIT/ML injection INJECT 10 UNITS SUBCUTANEOUSLY IN THE EVENING ALLERGIES No Known Allergies PROBLEMS Active Ambulatory [...] reviewed. Vitals: Estimated body mass index is 40.93 kg/m as calculated from the following: Height as of 03/22/23: 5' 2 . Weight as of 07/10/24: 223 lb 12.8 oz. BP: Patient's last menstrual period was 10/21/2023. ASSESSMENT & PLAN ICD-10-CM 1. 6 weeks follow-up Z39.2 Post Follow Up: Patient is doing well has no complaints. Patient desires to schedule a bilateral salpingectomy at today's visit. Patient presents today for 6 week visit. Patient is s/p Vaginal delivery. Patient states depression but denies suicidal and homicidal ideations. All options were discussed with the patient regarding control and patient desires tubal. We will send oral contraception until tubal can be completed Follow Up: Patient is to return for annual unless needed otherwise. Documented by Norma Vega MA on behalf of: BJ Garcia documented in this encounter [facility] 07-10-2024 History of Presen t illness Narrative [...] nursing note reviewed. Exam conducted with a special ed assistant present. Vitals: Estimated body mass index is [...] Jasiel Meade DO documented in this encounter [facility] 07-03-2024 History of Presen t illness [...] nursing note reviewed. Exam conducted with a special ed assistant present. Vitals: Estimated body mass index is [...] Jasiel Meade DO documented in this encounter [facility] 06-19-2024 History of Presen t illness [...] of: BJ Garcia documented in this encounter [facility] 06-05-2024 History of Presen t illness [...] nursing note reviewed. Exam conducted with a special ed assistant present. Vitals: Estimated body mass index is [...] of: BJ Garcia documented in this encounter [facility] 05-22-2024 History of Presen t illness [...] nursing note reviewed. Exam conducted with a special ed assistant present. Vitals: Estimated body mass index is [...] Jasiel Meade DO documented in this encounter [facility] 05-08-2024 History of Presen t illness [...] nursing note reviewed. Exam conducted with a special ed assistant present. Vitals: Estimated body mass index is [...] of: BJ Garcia documented in this encounter [facility] 04-17-2024 History of Presen t illness [...] nursing note reviewed. Exam conducted with a special ed assistant present. Vitals: Estimated body mass index is [...] IOL on 07/24/24. Patient was seen at [facility] and is scheduled to go back [...] [facility] Diagnosis 6 weeks follow-up documented [facility]* Diagnosis Encounter for follow-up ultrasound of anatomy- Primary [facility] filed[facility] Summary Purpose Family History No Family History Records FoundNo Family History Records FoundNo Family History Records FoundNo Family History Records FoundNo Family History Records FoundNo Family History Records Found Advance Directives Documents on File Type Date Recorded Patient Ror Engineer Expl anation ACP-Advance Directive ACP-Power of Senior Media Planner Reason for Referral Specialty Diagnoses / Procedures Referred By Contac t Referred To Contact Maternal and Medicine Diagnoses Encounter for follow-up ultrasound of anatomy Procedures US MFM with or without consult Jasiel Meade R, DO [address] [place] [place] [address] [facility] [address] [place] [address] Referral ID Status Reason Start Date Expiration Date V isits Requested Visits Authorized [id number] Pending Review 04/10/2024 04/10/2025 1 1 Additional Source Comments INFORMATION SOURCE (unrecogn ized section and content) DATE CREATED AUTHOR 03/12/2020 [facility] DATE CREATED AUTHOR AUTHOR'S ORGANIZ ATION 08/20/2021 [facility] DATE CREATED AUTHOR AUTHOR'S ORGANIZ ATION 02/18/2022 [facility] DATE CREATED AUTHOR AUTHOR'S ORGANIZ ATION 08/25/2022 [facility] DATE CREATED AUTHOR AUTHOR'S ORGANIZ ATION 04/12/2024 [facility] DATE CREATED AUTHOR AUTHOR'S ORGANIZ ATION 08/28/2024 [facility] Care Teams (unrecognized sec tion and content) Outbound Supervisor Relationship Specialty [place] [address] [place] [address] PCP - General Family Medicine 03/22/23 Outbound Supervisor Relationship Specialty [place] [address] [place] [address] PCP - General Family Medicine 03/22/23 Outbound Supervisor Relationship Specialty [place] [address] [place] [address] PCP - General Family Medicine 03/22/23 Suri Canales PA [address] [place] [address] [place] [address] PCP - Medical [employer] 07/30/22 07/29/99 Outbound Supervisor Relationship Specialty [place] [address] [place] [address] PCP - General Family Medicine 03/22/23 Suri Canales PA [address] [place] [address] [place] [address] PCP - Medical [employer] 07/30/22 07/29/99 Outbound Supervisor Relationship Specialty [place] [address] [place] [address] PCP - General Family Medicine 03/22/23 Suri Canales PA [facility] [place] [address] PCP - Medical [employer] 07/30/22 07/29/99 Outbound Supervisor Relationship Specialty [place] [address] [place] [address] PCP - General Family Medicine 03/22/23 Suri Canales PA [facility] [place] [address] PCP - Medical [employer] 07/30/22 07/29/99 Outbound Supervisor Relationship Specialty [place] [address] [place] [address] PCP - General Family Medicine 03/22/23 Suri Canales PA [address] [place] [address] [place] [address] PCP - Medical [employer] 07/30/22 07/29/99 Outbound Supervisor Relationship Specialty [place] [address] [place] [address] PCP - General Family Medicine 03/22/23 Suri Canales PA [facility] [place] [address] PCP - Medical [employer] 07/30/22 07/29/99 Outbound Supervisor Relationship Specialty [place] [address] [place] [address] PCP - General Family Medicine 03/22/23 Suri Canales PA [address] [place] [address] [place] [address] PCP - Medical [employer] 07/30/22 07/29/99 Outbound Supervisor Relationship Specialty [place] [address] [place] [address] PCP - General Family Medicine 03/22/23 Suri Canales PA [address] [place] [address] [place] [address] PCP - Medical [employer] 07/30/22 07/29/99 Outbound Supervisor Relationship Specialty Start [place] [address] [place] [address] PCP - General Family Medicine 03/22/23 Suri Canales PA [address] [place] [address] [place] [address] PCP - Medical [employer] 07/30/22 07/29/99 Outbound Supervisor Relationship Specialty Start [place] [address] [place] [address] PCP - General Family Medicine 03/22/23 Outbound Supervisor Relationship Specialty [place] [address] [facility] [place] [address] PCP - General Family Medicine 03/22/23 Reason for Visit (unrecogniz ed section and content) Reason Comments Routine Visit Reason Comments Care Pt present today for a 6 week post visit. Pt delivered on 07/14/2024 vaginally. FOR RECORDS PERTAINING TO PATIENTS WHO ARE [...] BE BASED ON THE PRIMARY CLINICAL RECORDS. [employer] provides no warranty or guarantee of the accuracy or completeness of information in this document.
== END 2024-09-17 21:53 | disposition home or self-care (01) ==
LOC: LAB 21:52
PROVIDERS: Visit Provider Obstetrics & Gynecology
DX: Z01.419 Encounter for gynecological examination (general) (routine) without abnormal findings (principal)
CPT/HCPCS: 88175